=== PATIENT | male | born 1955 | race Caucasian/White ===

== ENCOUNTER 2020-01-17 08:24 | Inpatient (IN) | payer BC, SELFPAY ==
[2020-01-17] VITALS (7 sets, daily range): BP systolic 114–163; BP diastolic 68–93; PULSE 89–119; RESP 18–20; TEMP 36.4–36.7; O2SAT 98–100; BMI 33.9; BMI 33.8; BMI 33.7
--- NOTE | 2020-01-17 08:36 | ED.DCSUM_ITS ---
History of Present Illness Chief Complaint: ETOH Intox Informant: Patient Narrative: Patient presents requesting help with alcohol detox. He states he drinks about 3 tall boys a day and about a half of 1/5 of whiskey. His last drink was at 10 PM last evening. He states normally he would drink a shot with breakfast. He is feeling shaky. He has never been through detox or withdrawal previously. He states he has been drinking more heavily over the past 2 years. - Past Medical History (1) Hypertension Status: Chronic (2) High cholesterol Status: Chronic (3) GERD (gastroesophageal reflux disease) Status: Chronic Past Medical History - Allergies and Home Meds Allergies/Adverse Reactions: Allergies oxycodone HCl [From OxyContin] Allergy (Verified 01/17/20 08:25) Rash Primary Care Physician: Harinder Sanchez MD [NON-STAFF] - Prior records reviewed: Yes Lives: Spouse/ Significant Other Smoking Status: Current every day smoker Review of Systems General: Denies: Chills, Fever Eyes: Denies: Visual changes - bilaterally ENT: Denies: Bilateral ear pain Cardiovascular: Denies: Chest pain Respiratory: Denies: Dyspnea, Cough Gastrointestinal: Denies: Abdominal pain, Nausea, Vomiting, Diarrhea Musculoskeletal: Denies: Extremity Pain Skin: Denies: Rash Neurological: Denies: Headache Psych: Reports: Anxiety Hematologic: Denies: Easy bruising, Easy bleeding Allergy: Denies: Uticaria Physical Exam Vital Signs/Narrative: Vital Signs Temp Pulse Resp BP Pulse Ox 01/17/20 08:25 97.7 F L 119 H 20 H 163/82 H 100 Inital Vital Signs reviewed: Yes General: Well nourished, Well developed Head: Normocephalic ENT: Moist mucous membranes Neck: Supple Cardiovascular: Regular rate, Regular rhythm Respiratory: No distress, CTA bilaterally Abdomen: Soft, Nontender, Normal bowel sounds Extremities: - - Tremor noted to the hands bilaterally. Hands are mildly sweaty. Skin: Normal color Neurological: Alert, Oriented x3 Psychological: Normal affect Diagnostic/Tx/Re-eval - Medical Decision Making She was given 1 mg of IV Ativan to help with withdrawal symptoms. Blood work is reviewed. He does have evidence of acute kidney injury with previous creatinine being 0.79 on July 21 of this year. At that time he is ordered IV fluids. Patient is discussed with hospitalist to admit for detox and treatment of his acute kidney injury. ED Disposition - Plan for ED Patient: Disposition: Acute Care Hospital [facility] Diagnosis: Desire for detoxification, Acute kidney injury Referrals: Harinder Sanchez MD [NON-STAFF] -
[2020-01-17] MEDS: LORazepam 2 MG/ML Syringe 1 MG IV (08:59)
[2020-01-17 09:24] LABS: Absolute Lymphocyte Count 1.44 X10^3/uL (0.83-4.51); Absolute Neutrophil Count 7.3 X10^3/uL (2.0-7.7); Basophil# 0.06 X10^3/uL; Basophil% 0.6 % (0-1); Eosinophil# 0.15 X10^3/uL; Eosinophils% 1.5 % (0-5); Hematocrit 39.1 % (40-54); Hemoglobin 13.3 g/dL (13.0-16.5); Lymphocyte # 1.44 X10^3/ul (4.0); Mean Corpuscular Hgb 34.4 pg (27.0-32.0); Mean Platelet Vol. 11.1 fl (6.2-12.0); Monocyte% 10.7 % (0-10); NRBC Flagged by Analyzer 0 % (0-5); Neutrophil # 7.33 X10^3/uL (2.7-7.7); Neutrophil % 71.2 % (47-70); Platelet Count 289 K/mm3 (150-450); RBC Distribution Width CV 14.2 % (11.6-14.6); RBC Distribution Width SD 52.4 fl (35.1-43.9); Red Blood Count 3.87 M/mm3 (4.6-6.2); White Blood Count 10.3 K/mm3 (4.4-11.0)
[2020-01-17 09:32] LABS: International Normalized Ratio 0.9; Prothrombin Time (Protime)PT. 11.9 SECONDS (11.7-14.9)
[2020-01-17 09:38] LABS: ALB/GLOB Ratio 1.1 RATIO (0.9-2.4); AST(SGOT) 43 U/L (15-37); Alanine Aminotransfer ALT/SGPT 65 U/L (16-61); Alkaline Phosphatase 108 U/L (45-117); Anion Gap 11 (5-15); BUN 45 mg/dL (7-18); Calcium,Total 9.4 mg/dL (8.5-10.1); Chloride 98 mmol/L (98-107); Creatinine, Serum 2.25 mg/dL (0.70-1.30); EST Glomerular Filtration Rate 31 mL/min (>60); Est Glom Filt Rate - Afr Amer 38 mL/min (>60); Estimated Creatinine Clearance 36.88 ml/min; Globulin 3.8 g/dL (2.2-4.2); Glucose 101 mg/dL (74-106); Potassium 5.5 mmol/L (3.5-5.1); Protein, Total 7.8 g/dL (6.4-8.2); Sodium Level 132 mmol/L (136-145)
[2020-01-17 09:53] LABS: Amphetamine Urine VISTA NEGATIVE (<1000 ng/mL); Barbiturate Urine VISTA NEGATIVE (< 200 ng/mL); Benzodiazepine Urine VISTA NEGATIVE (< 200 ng/mL); Cocaine Urine VISTA NEGATIVE (< 300 ng/mL); Ecstacy Urine VISTA NEGATIVE (< 500 ng/mL); Methadone Urine VISTA NEGATIVE (< 300 ng/mL); PCP Urine VISTA NEGATIVE (< 25 ng/mL); THC Urine VISTA POSITIVE (< 50 ng/mL); Vista UDS pH Range 5
[2020-01-17] MEDS: 0.9% Normal Saline 1,000 ML 150 ML IV (10:24)
--- NOTE | 2020-01-17 11:07 | NURSING ---
DR MARTINEZ FOR DR HERNÁNDEZ
--- NOTE | 2020-01-17 11:13 | NURSING ---
MED SURG ETOH DETOX, LATRICIA MICHELLE
--- NOTE | 2020-01-17 11:25 | ED.RN ---
RAMP AGREEMENT EXPLAINED TO PT AND SIGNED BY PT.
--- NOTE | 2020-01-17 12:11 | HP.PCM_ITS ---
Problem List (1) EtOH dependence Status: Acute Qualifiers: Substance use status: in withdrawal Complication of substance-induced condition: uncomplicated Qualified Code(s): F10.230 - Alcohol dependence with withdrawal, uncomplicated (2) Hyperkalemia Status: Acute (3) Depression Status: Chronic Qualifiers: Depression Type: unspecified Qualified Code(s): F32.9 - Major depressive disorder, single episode, unspecified (4) Hyponatremia Status: Acute (5) Transaminitis Status: Acute History of Present Illness Date of Admission: 01/17/20 Chief Complaint: EtOH Detox Mr. Basurto is a 64 year old M with a PMH of HTN, HPL, GERD, LBP, depression and EtOH abuse who presented to the ED at [facility] on 01/17/2020 requesting Detox. He states that he tried to quit cold turkey a few days ago but felt really horrible after about 2 days and decided then that he needed help to detox. He states that he has always been a drinker and has tried AA in the past but the last 2 yrs he has drank a lot more 2/2 stressors at home and those stressors are now removed and his home situation is much better now. He states that he has a lot of support. His last drink was last pm at 10. He states that he drinks about 3 24 oz high EtOH beers/day and about 1/2 bottle of whiskey daily. He states that he used to be able to stop after a few drinks but now he is unable to stop. He is mildly tachycardic. Lab works shows a Na of 132, a K of 5.5 a BUN of 45, a sCr of 2.25, AST of 43 and an ALT of 65. His Blood EtOH level was 4 and his tox screen was + for opiates. He has a tremor and states that he feels jittery. He was given IVF at a rate of 150 cc/hr and Ativan in the ED. Past Medical History Past Medical History (Chronic Problems): Chronic Problems Hypertension (Chronic) High cholesterol (Chronic) GERD (gastroesophageal reflux disease) (Chronic) Depression (Chronic) Allergies oxycodone HCl [From OxyContin] Allergy (Verified 01/17/20 08:25) Rash Home Medications: Ambulatory Orders Medication Instructions Recorded Lisinopril [Zestril] 40 mg PO DAILY 04/30/13 Omeprazole [Prilosec] 20 mg PO DAILY 04/30/13 Simvastatin [Zocor] 20 mg PO QHS 04/30/13 Aspirin E.C. [Ecotrin] 325 mg PO BID #60 tablet 05/08/13 Amlodipine [Norvasc] 5 mg PO DAILY 01/17/20 Cyclobenzaprine HCl 10 mg PO TID 01/17/20 Sertraline HCl [Zoloft] 50 mg PO DAILY 01/17/20 Surgical History: total knee arthroplasty - B Psychiatric History: Depression Lives: Spouse/ Significant Other Smoking Status: Current every day smoker Tobacco Use: Cigarettes Alcohol: Heavy Drugs: - - THC Review of Systems Constitutional: Reports: Fatigue. Denies: Anorexia, Chills, Fever, Night Sweats, Malaise, Weakness, Weight Change Eyes: Denies: Blurred vision, Conjunctivae Inflammation, Double vision, Drainage, Eyelid Inflammation, Pain, Redness, Vision Change HEENT: Denies: Difficulty Hearing, Dysphasia, Ear Pain, Head Aches, Nasal bleeding, Nasal Congestion, Post Nasal Drip, Sinus Congestion, Sinus Drainage, Sore Throat, Visual Changes Cardiovascular: Denies: Chest Pain, Claudication, Chest Pressure, Chest Tightness, Edema, Heaviness, Light Headedness, Orthopnea, Palpitations, Paroxysmal Noc. Dyspnea, Syncope Respiratory: Denies: Cough, Hemoptysis, Pleuritic Pain, Shortness of Breath, Shortness of breath at rest, Shortness of breath upon exertion, Sputum production, Wheezing Gastrointestinal: Denies: Abdominal Pain, Constipation, Diarrhea, Dyspepsia, Hematemesis, Hematochezia, Nausea, Melena, Vomiting Genitourinary: Denies: Dysuria, Frequency, Hematuria, Hesitancy, Incontinence, Nocturia, Retention, Urgency Musculoskeletal: Reports: Back Pain, Joint Pain, Joint stiffness, Muscle pain, Neck Pain. Denies: Joint swelling, Joint Tenderness, Leg Pain, Shoulder Pain Skin: Denies: Dryness, Jaundice, Lesions, Pruritis, Rash, Skin Changes, Wounds Neurological: Reports: - - feels jittery. Denies: Balance problems, Change in Speech, Slurred speech, Confusion, Difficulty swallowing, Focal weakness, Headaches, Incoordination, Numbness, Tingling, Tremor, Seizures Psychiatric: Reports: Depression. Denies: Anxiety, Homicidal Ideations, Suicidal Ideations Endocrine: Denies: Change in Body Habitus, Heat/ Cold Intolerance, Polydipsia, Polyuria Hematologic/ Lymphatic: Denies: Adenopathy, Anemia, Easy Bruising, Easy Bleeding, Petechiae, Purpura, Hx of blood clot VTE Information - Inpt Only VTE Present on Admission: No VTE Pharm Prophylaxis ordered?: No Patient Problems: Active and Suspected Problems Desire for detoxification (Acute) Acute kidney injury (Acute) EtOH dependence (Acute) Hyperkalemia (Acute) Hyponatremia (Acute) Transaminitis (Acute) - Physical Exam Vitals/I&O's: Vital Signs Temp Pulse Resp BP Pulse Ox 97.8 F 95 18 131/75 H 99 01/17/20 11:13 01/17/20 11:13 01/17/20 11:13 01/17/20 11:13 01/17/20 11:13 Oxygen Delivery Method Room Air Weight: 113.5 kg Body Mass Index (BMI) 33.9 Intake and Output for Last 24 Hours 01/15/20 01/16/20 01/17/20 23:59 23:59 23:59 Intake Total 500 / 500 Balance 500 / 500 General: Alert, Oriented x3, Cooperative, No apparent distress, Well developed, Well nourished, - - obese upper middle aged male, sitting up in bed, tremulous HEENT: Atraumatic, PERRLA, EOMI, Normocephalic, TM's Clear Oral: Moist Mucosa, No Gingival or Mucosal Lesions/ Ulcerations, - - Mallampati 2, no thrush, fair dentiton Neck: Supple, No JVD, No Nodes, No Nuchal Rigidity, Trachea Midline, Thyroid Normal Size and Texture Lungs: Clear to auscultation, No rhonchi, No wheeze, No rales, Diminished - diffusely Cardiovascular: Regular rate, Regular Rhythm, Normal S1, Normal S2, No murmurs, No Ectopic Activity, No rub noted, No Gallop Abdomen: Bowel Sounds Present, Soft, Non Tender, Non-Distended, No Hepato- splenomegaly, Obese, No hernias noted Extremities: No clubbing, No cyanosis, No edema, Capillary Refill Less than 3 Seconds, Peripheral Pulses Normal Skin: No rashes, No breakdown Musculoskeletal: No Tenderness to Palpation of Joints or Extremities, No Muscle Wasting, Arthritic Changes Lymphatic: No Cervical, Supraclavicular, or Inguinal Adenopathy Neurological: Cranial nerves II-XII grossly intact, Deep Tendon Reflexes 2+/4 and Symmetrical, Neuro grossly intact, Motor Exam 5/5 strength throughout, Muscle tone normal, Sensory exam intact to light touch and pain, Coordination normal, - - tremulous Psych/Mental Status: Normal Affect, Appropriate, Alert and oriented to time, place, person, mood and affect Laboratory Results 01/17/20 08:55: WBC 10.3, RBC 3.87 L, Hgb 13.3, Hct 39.1 L, MCV 101.0 H, MCH 34.4 H, MCHC 34.0, RDW Std Deviation 52.4 H, RDW Coeff of Shireen 14.2, Plt Count 289, MPV 11.1, Immature Gran % (Auto) 2.000 H, Neut % (Auto) 71.2 H, Lymph % (Auto) 14.0 L, [place] % (Auto) 10.7 H, Eos % (Auto) 1.5, Baso % (Auto) 0.6, Absolute Neuts (auto) 7.3, Absolute Lymphs (auto) 1.44, Nucleated RBC % 0 01/17/20 08:55: PT 11.9, INR 0.9 01/17/20 08:55: Sodium 132 L, Potassium 5.5 H, Chloride 98, Carbon Dioxide 23.0, Anion Gap 11, BUN 45 H, Creatinine 2.25 H, Estim Creat Clear Calc 36.88, Est GFR (MDRD) Af Amer 38 L, Est GFR (MDRD) Non-Af 31 L, BUN/Creatinine Ratio 20.0, Glucose 101, Calcium 9.4, Total Bilirubin 0.50, AST 43 H, ALT 65 H, Alkaline Phosphatase 108, Total Protein 7.8, Albumin 4.0, Globulin 3.8, Albumin/Globulin Ratio 1.1 01/17/20 08:55: Ethyl Alcohol 4.0 01/17/20 08:55: Urine Opiates Screen NEGATIVE, Urine Methadone Screen NEGATIVE, Ur Barbiturates Screen NEGATIVE, Ur Phencyclidine Scrn NEGATIVE, Ur Amphetamines Screen NEGATIVE, U Methamphetamin-MDMA NEGATIVE, U Benzodiazepines Scrn NEGATIVE, Urine Cocaine Screen NEGATIVE, U Cannabinoids Screen POSITIVE H, Ur Drug Screen Comment Current Medications Sodium Chloride () 1,000 mls @ 150 mls/hr IV .[id number] [facility] Last Admin: 01/17/20 10:24 Dose: 150 mls/hr Documented by: Assessment/Plan All Active Problems Desire for detoxification (Acute) Acute kidney injury (Acute) EtOH dependence (Acute) Hyperkalemia (Acute) Hyponatremia (Acute) Transaminitis (Acute) Acute EtOH withdrawal -phenobarb taper -thiamine and folate -MVI -180 involvement -prn ativan LATRICIA -baseline sCr appears to be 0.7-0.8 -suspect dehydration -hold ASA and ACEI -LR at 150 cc/hr until am -repeat BMP at 1300 and in am -if doesn't improve will perform further w/u -avoid nephrotoxins Hyperkalemia -hold ACEI -IVF -repeat at 1300 -suspect related to LATRICIA and meds Mild EtOH Hepatitis -repeat in am Hypovolemic Hyponatremia -IVF and recheck -mild HTN/HPL -continue Amlodipine -hold ACEI for now -prn hydralizine for SBP > 160 -continue Statin Depression -continue Zoloft GERD -continue PPI Tobacco abuse -recommend cessation -start patch Chronic LBP -continue home flexeril DVT prophylaxis -low risk -early ambulation Code status -Full Inpatient E&M: 28418 Init Hosp L3
--- NOTE | 2020-01-17 12:11 | CM.ED ---
SOCIAL WORK Patient being admitted to [facility] for alcohol withdrawal management. Call to [facility] to update on admission, message left with Summer who will update intake. Matthew Wong, HEARING AID MECHANIC, AUTOMATIC BRINE MIXER OPERATOR
[2020-01-17] MEDS: cycloBENZAPRine HCl 10 MG Tablet PO ×2 (14:02→22:45)
[2020-01-17] MEDS: Phenobarbital 32.4 MG Tablet 64.8 MG PO ×3 (14:02→22:44)
[2020-01-17] MEDS: Lactated Ringers 1,000 ML 150 ML IV ×2 (14:02→20:50)
[2020-01-17 14:12] LABS: Anion Gap 7 (5-15); BUN 43 mg/dL (7-18); BUN/Creat Ratio 23.8 RATIO (10-20); Calcium,Total 8.9 mg/dL (8.5-10.1); Chloride 103 mmol/L (98-107); Creatinine, Serum 1.81 mg/dL (0.70-1.30); EST Glomerular Filtration Rate 40 mL/min (>60); Est Glom Filt Rate - Afr Amer 49 mL/min (>60); Estimated Creatinine Clearance 45.85 ml/min; Glucose 93 mg/dL (74-106); Potassium 5.2 mmol/L (3.5-5.1); Sodium Level 135 mmol/L (136-145)
[2020-01-17] MEDS: Thiamine Hydrochloride 100 MG Tablet PO (18:50)
[2020-01-17] MEDS: Atorvastatin Calcium 10 MG Tablet PO (22:46)
[2020-01-18] VITALS (7 sets, daily range): BP systolic 111–141; BP diastolic 67–102; PULSE 90–107; RESP 18–20; TEMP 36.4–36.6; O2SAT 95–100
[2020-01-18] MEDS: Phenobarbital 32.4 MG Tablet 64.8 MG PO ×6 (02:21→22:19)
[2020-01-18] MEDS: Lactated Ringers 1,000 ML 150 ML IV (02:21)
[2020-01-18] MEDS: cycloBENZAPRine HCl 10 MG Tablet PO ×3 (06:22→22:18)
[2020-01-18 07:45] LABS: Absolute Lymphocyte Count 1.76 X10^3/uL (0.83-4.51); Absolute Neutrophil Count 4.3 X10^3/uL (2.0-7.7); Basophil# 0.06 X10^3/uL; Basophil% 0.9 % (0-1); Eosinophil# 0.24 X10^3/uL; Eosinophils% 3.4 % (0-5); Hematocrit 39.4 % (40-54); Hemoglobin 12.8 g/dL (13.0-16.5); Lymphocyte # 1.76 X10^3/ul (4.0); Mean Corp Hgb Conc 32.5 g/dL (32-36); Mean Corpuscular Hgb 33.6 pg (27.0-32.0); Mean Corpuscular Volume 103.4 fL (80-94); Mean Platelet Vol. 11.2 fl (6.2-12.0); Monocyte# 0.56 X10^3/uL; Monocyte% 7.9 % (0-10); NRBC Flagged by Analyzer 0 % (0-5); Neutrophil # 4.31 X10^3/uL (2.7-7.7); Neutrophil % 61.1 % (47-70); Platelet Count 238 K/mm3 (150-450); RBC Distribution Width CV 14.1 % (11.6-14.6); RBC Distribution Width SD 54.2 fl (35.1-43.9); Red Blood Count 3.81 M/mm3 (4.6-6.2); White Blood Count 7.1 K/mm3 (4.4-11.0)
--- NOTE | 2020-01-18 07:54 | PCM.PN.HOSP ---
Patient Problems: Active and Suspected Problems Desire for detoxification (Acute) Acute kidney injury (Acute) EtOH dependence (Acute) Hyperkalemia (Acute) Hyponatremia (Acute) Transaminitis (Acute) Subjective: Pt states that he is much less tremulous with the medication. Feeling ok this am. Is very complimentary about his care. Vitals/I&O's: Vital Signs Temp Pulse Resp BP Pulse Ox 97.5 F L 98 18 127/78 H 96 01/18/20 06:19 01/18/20 06:19 01/18/20 06:19 01/18/20 06:19 01/18/20 07:03 Oxygen Delivery Method Room Air Weight: 113.1 kg Body Mass Index (BMI) 33.7 Intake and Output for Last 24 Hours 01/16/20 01/17/20 01/18/20 23:59 23:59 23:59 Intake Total 2315 / 2315 1027.5 / 1027.5 Output Total 2049 / 2049 1000 / 1000 Balance 265 / 265 27.5 / 27.5 General: Alert, Oriented x3, Cooperative, No apparent distress, Well developed, Well nourished, - - obese WM lying in bed sleeping but awakens easily HEENT: Atraumatic, PERRLA, EOMI, Normocephalic, EAC Clear Oral: Moist Mucosa, No Gingival or Mucosal Lesions/ Ulcerations Neck: Supple, No JVD, No Nodes, Trachea Midline, Thyroid Normal Size and Texture Lungs: Clear to auscultation, No rhonchi, No wheeze, No rales, Diminished - diffusely Cardiovascular: Regular rate, Regular Rhythm, Normal S1, Normal S2, No murmurs, No Ectopic Activity, No rub noted, No Gallop Abdomen: Bowel Sounds Present, Soft, Non Tender, Non-Distended, No Hepato-splenomegaly, Obese Extremities: No clubbing, No cyanosis, No edema, Capillary Refill Less than 3 Seconds, Peripheral Pulses Normal Skin: No rashes, No breakdown Musculoskeletal: No Tenderness to Palpation of Joints or Extremities, No Muscle Wasting, Arthritic Changes Lymphatic: No Cervical, Supraclavicular, or Inguinal Adenopathy Neurological: Cranial nerves II-XII grossly intact, Neuro grossly intact, Muscle tone normal, Coordination normal, - - no sig tremor Psych/Mental Status: Normal Affect, Appropriate, - - very pleasant, Alert and oriented to time, place, person, mood and affect Laboratory Results 01/17/20 08:55: WBC 10.3, RBC 3.87 L, Hgb 13.3, Hct 39.1 L, MCV 101.0 H, MCH 34.4 H, MCHC 34.0, RDW Std Deviation 52.4 H, RDW Coeff of Shireen 14.2, Plt Count 289, MPV 11.1, Immature Gran % (Auto) 2.000 H, Neut % (Auto) 71.2 H, Lymph % (Auto) 14.0 L, [place] % (Auto) 10.7 H, Eos % (Auto) 1.5, Baso % (Auto) 0.6, Absolute Neuts (auto) 7.3, Absolute Lymphs (auto) 1.44, Nucleated RBC % 0 01/17/20 08:55: PT 11.9, INR 0.9 01/17/20 08:55: Sodium 132 L, Potassium 5.5 H, Chloride 98, Carbon Dioxide 23.0, Anion Gap 11, BUN 45 H, Creatinine 2.25 H, Estim Creat Clear Calc 36.88, Est GFR (MDRD) Af Amer 38 L, Est GFR (MDRD) Non-Af 31 L, BUN/Creatinine Ratio 20.0, Glucose 101, Calcium 9.4, Total Bilirubin 0.50, AST 43 H, ALT 65 H, Alkaline Phosphatase 108, Total Protein 7.8, Albumin 4.0, Globulin 3.8, Albumin/Globulin Ratio 1.1 01/17/20 08:55: Ethyl Alcohol 4.0 01/17/20 08:55: Urine Opiates Screen NEGATIVE, Urine Methadone Screen NEGATIVE, Ur Barbiturates Screen NEGATIVE, Ur Phencyclidine Scrn NEGATIVE, Ur Amphetamines Screen NEGATIVE, U Methamphetamin-MDMA NEGATIVE, U Benzodiazepines Scrn NEGATIVE, Urine Cocaine Screen NEGATIVE, U Cannabinoids Screen POSITIVE H, Ur Drug Screen Comment 01/17/20 13:14: Sodium 135 L, Potassium 5.2 H, Chloride 103, Carbon Dioxide 25.0, Anion Gap 7, BUN 43 H, Creatinine 1.81 H, Estim Creat Clear Calc 45.85, Est GFR (MDRD) Af Amer 49 L, Est GFR (MDRD) Non-Af 40 L, BUN/Creatinine Ratio 23.8 H, Glucose 93, Calcium 8.9 01/18/20 06:40: WBC 7.1, RBC 3.81 L, Hgb 12.8 L, Hct 39.4 L, MCV 103.4 H, MCH 33.6 H, MCHC 32.5, RDW Std Deviation 54.2 H, RDW Coeff of Shireen 14.1, Plt Count 238, MPV 11.2, Immature Gran % (Auto) 1.700 H, Neut % (Auto) 61.1, Lymph % (Auto) 25.0, [place] % (Auto) 7.9, Eos % (Auto) 3.4, Baso % (Auto) 0.9, Absolute Neuts (auto) 4.3, Absolute Lymphs (auto) 1.76, Nucleated RBC % 0 01/18/20 06:40: Sodium Pending, Potassium Pending, Chloride Pending, Carbon Dioxide Pending, Anion Gap Pending, BUN Pending, Creatinine Pending, Est GFR (MDRD) Af Amer Pending, Est GFR (MDRD) Non-Af Pending, BUN/Creatinine Ratio Pending, Glucose Pending, Calcium Pending, Phosphorus Pending, Magnesium Pending, Total Bilirubin Pending, AST Pending, ALT Pending, Alkaline Phosphatase Pending, Total Protein Pending, Albumin Pending Current Medications Acetaminophen (Tylenol) 650 mg PO Q6H PRN PRN PRN Reason: Pain Score 1-10/Temp > 100.7 F Al Hydroxide/Mg Hydroxide (Mylanta Ii) 30 ml PO Q6H PRN PRN PRN Reason: Gastric Burning Amlodipine Besylate (Norvasc) 5 mg PO DAILY [facility] Atorvastatin Calcium (Lipitor) 10 mg PO QHS [facility] Last Admin: 01/17/20 22:46 Dose: 10 mg Documented by: Cyclobenzaprine HCl (Flexeril) 10 mg PO TID [facility] Last Admin: 01/18/20 06:22 Dose: 10 mg Documented by: Dicyclomine HCl (Bentyl) 20 mg PO Q6H PRN PRN PRN Reason: abdominal discomfort Folic Acid (Folic Acid) 1 mg PO DAILY@0800 [facility] Stop: 01/20/20 08:01 Gabapentin (Neurontin) 300 mg PO Q8H PRN PRN PRN Reason: moderate to severe anxiety Hydroxyzine Pamoate (Vistaril Pamoate Capsule) 50 mg PO Q4H PRN PRN PRN Reason: mild anxiety Labetalol HCl (Trandate) 20 mg IV Q4H PRN PRN PRN Reason: sbp > 160 Loperamide HCl (Imodium) 2 mg PO Q4H PRN PRN PRN Reason: LOOSE STOOLS Lorazepam (Ativan) 2 mg PO Q2H PRN PRN; Protocol PRN Reason: CIWA score > 8 but <15 Lorazepam (Ativan) 2 mg PO UD PRN; Protocol PRN Reason: CIWA score >/=15. Lorazepam (Ativan) 2 mg IV Q2H PRN PRN; Protocol PRN Reason: CIWA score > 8 but <15 Lorazepam (Ativan) 2 mg IV UD PRN; Protocol PRN Reason: CIWA score >/=15. Lorazepam (Ativan) 1 mg PO Q2H PRN PRN PRN Reason: etoh withdrawal/agitation Melatonin (Melatonin) 3 mg PO QHS PRN PRN PRN Reason: INSOMNIA Multivitamins/Minerals (Multivitamin With Minerals (Bkc)) 1 tablet PO DAILYCM [facility] Ondansetron HCl (Zofran) 8 mg PO Q8H PRN PRN PRN Reason: NAUSEA Ondansetron HCl (Zofran) 4 mg IV Q8H PRN PRN PRN Reason: NAUSEA/VOMITING Pantoprazole Sodium (Protonix) 20 mg PO DAILY [facility] Phenobarbital (Phenobarbital) 97.2 mg PO Q4H PAULETT[facility]; Taper Stop: 01/21/20 21:59 Last Admin: 01/18/20 06:22 Dose: 97.2 mg Documented by: Sertraline HCl (Zoloft) 50 mg PO DAILY [facility] Sodium Chloride () 10 - 40 ml IV UD PRN PRN Reason: SALINE FLUSH Thiamine HCl (Vitamin B1) 100 mg PO BIDCM [place] Stop: 01/20/20 08:01 Last Admin: 01/17/20 18:50 Dose: 100 mg Documented by: Trazodone HCl (Desyrel) 100 mg PO QHS PRN PRN PRN Reason: INSOMNIA STROKE Vital Signs/Narrative: Vital Signs Temp Pulse Resp BP Pulse Ox 01/18/20 07:03 96 01/18/20 06:19 97.5 F L 98 18 127/78 H 96 Medical Necessity - Tobacco Use Smoking Status: Current every day smoker Tobacco Use: Cigarettes Assessment/Plan All Active Problems Desire for detoxification (Acute) Acute kidney injury (Acute) EtOH dependence (Acute) Hyperkalemia (Acute) Hyponatremia (Acute) Transaminitis (Acute) Acute EtOH withdrawal -phenobarb taper with end dated of 01/20 in the evening -thiamine and folate -MVI -180 involvement -prn ativan LATRICIA -baseline sCr appears to be 0.7-0.8 -resolving-->sCr is down to 1.04 today -will reduce IVF to NS at 50 cc/hr x 1 bag and then d/c Hyperkalemia -resolved -will still hold ACEI today Mild EtOH Hepatitis -resolved Hypovolemic Hyponatremia -resolved Mild Macrocytic Anemia -hgb 12.8 from 3.3 on admission -will monitor HTN/HPL -continue Amlodipine -continue to hold ACEI for now -BP is not elevated -will restart (40 mg is home dose) if BP is consistently elevated -prn hydralizine for SBP > 160 -continue Statin Depression -continue Zoloft GERD -continue PPI Tobacco abuse -recommend cessation -patch if needed Chronic LBP -continue home Flexeril DVT prophylaxis -low risk -early ambulation Code status -Full Inpatient E&M: 44023 Subs Hosp L3
[2020-01-18 07:58] LABS: AST(SGOT) 37 U/L (15-37); Alanine Aminotransfer ALT/SGPT 53 U/L (16-61); Albumin, Serum 3.4 g/dL (3.2-5.0); Alkaline Phosphatase 91 U/L (45-117); Anion Gap 4 (5-15); BUN 33 mg/dL (7-18); BUN/Creat Ratio 31.7 RATIO (10-20); Calcium,Total 9.3 mg/dL (8.5-10.1); Chloride 106 mmol/L (98-107); Creatinine, Serum 1.04 mg/dL (0.70-1.30); EST Glomerular Filtration Rate 77 mL/min (>60); Est Glom Filt Rate - Afr Amer 93 mL/min (>60); Globulin 3.4 g/dL (2.2-4.2); Glucose 90 mg/dL (74-106); Protein, Total 6.8 g/dL (6.4-8.2); Sodium Level 137 mmol/L (136-145)
[2020-01-18] MEDS: 0.9% Normal Saline 1,000 ML 50 ML IV (09:07)
[2020-01-18] MEDS: Pantoprazole Sodium 20 MG Tablet PO (09:37)
[2020-01-18] MEDS: Aspirin 81 MG TAB.CHEW PO (09:37)
[2020-01-18] MEDS: Thiamine Hydrochloride 100 MG Tablet PO ×2 (09:37→17:24)
[2020-01-18] MEDS: Sertraline 50 MG Tablet PO (09:37)
[2020-01-18] MEDS: Multivitamins,Ther W-Minerals Tablet 1 TABLET PO (09:37)
[2020-01-18] MEDS: amLODIPine 5 MG Tablet PO (09:37)
[2020-01-18] MEDS: Folic Acid 1 MG Tablet PO (09:38)
[2020-01-18] MEDS: Acetaminophen 325 MG Tablet 650 MG PO (09:38)
[2020-01-18] MEDS: hydrOXYzine PAM 25 MG Capsule 50 MG PO (12:58)
[2020-01-18] MEDS: Gabapentin 300 MG Capsule PO (14:01)
[2020-01-18] MEDS: Atorvastatin Calcium 10 MG Tablet PO (22:19)
[2020-01-18] MEDS: MELATONIN 3 MG TABLET PO (22:25)
[2020-01-19] MEDS: Phenobarbital 32.4 MG Tablet 64.8 MG PO ×6 (02:41→20:56)
[2020-01-19 02:45] VITALS: BP 123/83; PULSE 89; RESP 18; TEMP 36.4; O2SAT 100
[2020-01-19] MEDS: cycloBENZAPRine HCl 10 MG Tablet PO ×3 (05:23→20:56)
[2020-01-19] MEDS: 0.9% Saline Lock 10 ML Syringe IV (05:23)
[2020-01-19 07:26] VITALS: O2SAT 95
--- NOTE | 2020-01-19 08:32 | PN_ITS ---
Patient Problems: Active and Suspected Problems Desire for detoxification (Acute) Acute kidney injury (Acute) EtOH dependence (Acute) Hyperkalemia (Acute) Hyponatremia (Acute) Transaminitis (Acute) Subjective: Pt states that he is feeling well and this is the best he has felt in the morning in a long time. His only complaint is that he has not had a BM and that is atypical for him. Would like to go home tomorrow if possible. Vitals/I&O's: Vital Signs Temp Pulse Resp BP Pulse Ox 97.5 F L 89 18 123/83 H 95 01/19/20 02:45 01/19/20 02:45 01/19/20 02:45 01/19/20 02:45 01/19/20 07:26 Oxygen Delivery Method Room Air Weight: 113.1 kg Body Mass Index (BMI) 33.7 Intake and Output for Last 24 Hours 01/17/20 01/18/20 01/19/20 23:59 23:59 23:59 Intake Total 2315 / 2315 4027.5 / 4627.5 1900 / 1900 Output Total 2049 / 2049 2850 / 3200 1150 / 1150 Balance 265 / 265 1177.5 / 1427.5 750 / 750 General: Alert, Oriented x3, Cooperative, No apparent distress, Well developed, Well nourished, - - Obese WM sitting up in a chair watching TV Lungs: No rhonchi, No wheeze, No rales, Diminished - diffusely Cardiovascular: Regular rate, Regular Rhythm, Normal S1, Normal S2, No murmurs, No Ectopic Activity, No rub noted, No Gallop Abdomen: Bowel Sounds Present, Soft, Non Tender, Non-Distended, Obese Extremities: No clubbing, No cyanosis, No edema, Capillary Refill Less than 3 Seconds, Peripheral Pulses Normal Neurological: Cranial nerves II-XII grossly intact, Neuro grossly intact, - - no tremor Psych/Mental Status: Normal Affect, Appropriate, Alert and oriented to time, place, person, mood and affect Current Medications Acetaminophen (Tylenol) 650 mg PO Q6H PRN PRN PRN Reason: Pain Score 1-10/Temp > 100.7 F Last Admin: 01/18/20 09:38 Dose: 650 mg Documented by: Al Hydroxide/Mg Hydroxide (Mylanta Ii) 30 ml PO Q6H PRN PRN PRN Reason: Gastric Burning Amlodipine Besylate (Norvasc) 5 mg PO DAILY [facility] Last Admin: 01/18/20 09:37 Dose: 5 mg Documented by: Aspirin (Aspirin, Baby) 81 mg PO DAILY@0800 [facility] Atorvastatin Calcium (Lipitor) 10 mg PO QHS [facility] Last Admin: 01/18/20 22:19 Dose: 10 mg Documented by: Cyclobenzaprine HCl (Flexeril) 10 mg PO TID [facility] Last Admin: 01/19/20 05:23 Dose: 10 mg Documented by: Dicyclomine HCl (Bentyl) 20 mg PO Q6H PRN PRN PRN Reason: abdominal discomfort Folic Acid (Folic Acid) 1 mg PO DAILY@0800 [facility] Stop: 01/20/20 08:01 Last Admin: 01/18/20 09:38 Dose: 1 mg Documented by: Gabapentin (Neurontin) 300 mg PO Q8H PRN PRN PRN Reason: moderate to severe anxiety Last Admin: 01/18/20 14:01 Dose: 300 mg Documented by: Hydroxyzine Pamoate (Vistaril Pamoate Capsule) 50 mg PO Q4H PRN PRN PRN Reason: mild anxiety Last Admin: 01/18/20 12:58 Dose: 50 mg Documented by: Labetalol HCl (Trandate) 20 mg IV Q4H PRN PRN PRN Reason: sbp > 160 Loperamide HCl (Imodium) 2 mg PO Q4H PRN PRN PRN Reason: LOOSE STOOLS Lorazepam (Ativan) 2 mg PO Q2H PRN PRN; Protocol PRN Reason: CIWA score > 8 but <15 Lorazepam (Ativan) 2 mg PO UD PRN; Protocol PRN Reason: CIWA score >/=15. Lorazepam (Ativan) 2 mg IV Q2H PRN PRN; Protocol PRN Reason: CIWA score > 8 but <15 Lorazepam (Ativan) 2 mg IV UD PRN; Protocol PRN Reason: CIWA score >/=15. Lorazepam (Ativan) 1 mg PO Q2H PRN PRN PRN Reason: etoh withdrawal/agitation Melatonin (Melatonin) 3 mg PO QHS PRN PRN PRN Reason: INSOMNIA Last Admin: 01/18/20 22:25 Dose: 3 mg Documented by: Multivitamins/Minerals ([facility]ivit[facility] With Minerals ([facility])) [facility] Last Admin: 01/18/20 09:37 Dose: 1 tablet Documented by: Nicotine (Nicoderm Cq (Pbkc)) 21 mg TRANSDERM. DAILY [facility] Last Admin: 01/18/20 13:05 Dose: 21 mg Documented by: Ondansetron HCl (Zofran) 8 mg PO Q8H PRN PRN PRN Reason: NAUSEA Ondansetron HCl (Zofran) 4 mg IV Q8H PRN PRN PRN Reason: NAUSEA/VOMITING Pantoprazole Sodium (Protonix) 20 mg PO DAILY [facility] Last Admin: 01/18/20 09:37 Dose: 20 mg Documented by: Phenobarbital (Phenobarbital) 64.8 mg PO Q4H [facility]; Taper Stop: 01/21/20 21:59 Last Admin: 01/19/20 05:26 Dose: 64.8 mg Documented by: Sertraline HCl (Zoloft) 50 mg PO DAILY [facility] Last Admin: 01/18/20 09:37 Dose: 50 mg Documented by: Sodium Chloride () 10 - 40 ml IV UD PRN PRN Reason: SALINE FLUSH Last Admin: 01/19/20 05:23 Dose: 10 ml Documented by: Thiamine [facility]itamin B1) [facility] Stop: 01/20/20 08:01 Last Admin: 01/18/20 17:24 Dose: 100 mg Documented by: Trazodone HCl (Desyrel) 100 mg PO QHS PRN PRN PRN Reason: INSOMNIA STROKE Vital Signs/Narrative: Vital Signs Pulse Ox 01/19/20 07:26 95 Medical Necessity - Tobacco Use Smoking Status: Current every day smoker Tobacco Use: Cigarettes Assessment/Plan All Active Problems Desire for detoxification (Acute) Acute kidney injury (Acute) EtOH dependence (Acute) Hyperkalemia (Acute) Hyponatremia (Acute) Transaminitis (Acute) Acute EtOH withdrawal -phenobarb taper with end dated of 01/20 in the evening -thiamine and folate -MVI -180 involvement--> will see tomorrow -prn ativan LATRICIA -baseline sCr appears to be 0.7-0.8 -was 05/25 yesterday and am lab is pending for today Constipation -Miralax PRN ordered and 1 dose of miralax for today Mild Macrocytic Anemia -hgb 12.8 from 3.3 on admission -will monitor HTN/HPL -continue Amlodipine -continue to hold ACEI for now -BP remains in normal range without ACEI--> will continue to hold for now -will restart (40 mg is home dose) if BP is consistently elevated -prn hydralazine for SBP > 160 -continue Statin Depression -continue Zoloft GERD -continue PPI Tobacco abuse -recommend cessation -patch if needed Chronic LBP -continue home Flexeril DVT prophylaxis -low risk -early ambulation Code status -Full Inpatient E&M: 45702 Subs Hosp L2
[2020-01-19 09:30] VITALS: BP 143/73; PULSE 94; RESP 18; TEMP 36.3; O2SAT 99
[2020-01-19] MEDS: Multivitamins,Ther W-Minerals Tablet 1 TABLET PO (09:36)
[2020-01-19] MEDS: Sertraline 50 MG Tablet PO (09:36)
[2020-01-19] MEDS: Pantoprazole Sodium 20 MG Tablet PO (09:36)
[2020-01-19] MEDS: Folic Acid 1 MG Tablet PO (09:37)
[2020-01-19 09:38] LABS: Anion Gap 5 (5-15); BUN 21 mg/dL (7-18); BUN/Creat Ratio 19.8 RATIO (10-20); Chloride 103 mmol/L (98-107); Creatinine, Serum 1.06 mg/dL (0.70-1.30); EST Glomerular Filtration Rate 75 mL/min (>60); Est Glom Filt Rate - Afr Amer 91 mL/min (>60); Estimated Creatinine Clearance 78.29 ml/min; Glucose 114 mg/dL (74-106); Potassium 5.1 mmol/L (3.5-5.1); Sodium Level 135 mmol/L (136-145)
[2020-01-19] MEDS: Thiamine Hydrochloride 100 MG Tablet PO ×2 (10:00→15:33)
[2020-01-19] MEDS: Aspirin 81 MG TAB.CHEW PO (10:00)
[2020-01-19] MEDS: amLODIPine 5 MG Tablet PO (10:01)
[2020-01-19 15:28] VITALS: BP 147/89; PULSE 98; RESP 20; TEMP 36.6; O2SAT 98
[2020-01-19] MEDS: Polyethylene Glycol 3350 17 GM PACKET PO (15:33)
[2020-01-19] MEDS: LORazepam 1 MG Tablet PO (18:44)
--- NOTE | 2020-01-19 18:44 | NURSING ---
Pt states he is getting a little antsy. Thinks he needs a different Nicotine patch. Informed nurse that I think they gave me a different dose of nicotine last time. Explained to pt after looking at emar that nicotine always been the 21mcg. This nurse offered getting an order for nicotine gum and pt was agreeable. Dr. Salazar texted, and no order for nicotine gum but wants nurse to give po ativan. Pt is agreeable to this.
[2020-01-19] MEDS: Atorvastatin Calcium 10 MG Tablet PO (20:56)
[2020-01-19 21:01] VITALS: BP 116/84; PULSE 110; RESP 18; TEMP 36.5; O2SAT 100
[2020-01-20] MEDS: Phenobarbital 32.4 MG Tablet 64.8 MG PO ×2 (04:59→10:33)
[2020-01-20] MEDS: cycloBENZAPRine HCl 10 MG Tablet PO (04:59)
[2020-01-20 06:00] VITALS: BP 151/95; PULSE 97; RESP 18; TEMP 36.6; O2SAT 96
[2020-01-20 06:29] LABS: Absolute Lymphocyte Count 1.81 X10^3/uL (0.83-4.51); Basophil# 0.05 X10^3/uL; Basophil% 0.7 % (0-1); Eosinophil# 0.29 X10^3/uL; Eosinophils% 4.2 % (0-5); Hematocrit 37.6 % (40-54); Hemoglobin 12.1 g/dL (13.0-16.5); Lymphocyte # 1.81 X10^3/ul (4.0); Lymphocyte % 26.3 % (19-41); Mean Corp Hgb Conc 32.2 g/dL (32-36); Mean Corpuscular Hgb 33.3 pg (27.0-32.0); Mean Corpuscular Volume 103.6 fL (80-94); Mean Platelet Vol. 10.4 fl (6.2-12.0); Monocyte# 0.63 X10^3/uL; Monocyte% 9.2 % (0-10); NRBC Flagged by Analyzer 0 % (0-5); Neutrophil # 3.95 X10^3/uL (2.7-7.7); Neutrophil % 57.4 % (47-70); Platelet Count 220 K/mm3 (150-450); RBC Distribution Width SD 53.4 fl (35.1-43.9); Red Blood Count 3.63 M/mm3 (4.6-6.2); White Blood Count 6.9 K/mm3 (4.4-11.0)
[2020-01-20 06:57] LABS: Anion Gap 2 (5-15); BUN 21 mg/dL (7-18); BUN/Creat Ratio 22.7 RATIO (10-20); Calcium,Total 8.9 mg/dL (8.5-10.1); Chloride 101 mmol/L (98-107); Creatinine, Serum 0.92 mg/dL (0.70-1.30); EST Glomerular Filtration Rate 88 mL/min (>60); Est Glom Filt Rate - Afr Amer 106 mL/min (>60); Estimated Creatinine Clearance 90.21 ml/min; Glucose 96 mg/dL (74-106); Potassium 4.6 mmol/L (3.5-5.1); Sodium Level 133 mmol/L (136-145)
[2020-01-20] MEDS: Multivitamins,Ther W-Minerals Tablet 1 TABLET PO (07:43)
[2020-01-20] MEDS: Sertraline 50 MG Tablet PO (07:43)
[2020-01-20] MEDS: Folic Acid 1 MG Tablet PO (07:43)
[2020-01-20] MEDS: Aspirin 81 MG TAB.CHEW PO (07:43)
[2020-01-20] MEDS: Pantoprazole Sodium 20 MG Tablet PO (07:44)
[2020-01-20 08:16] VITALS: O2SAT 99
[2020-01-20 10:31] VITALS: BP 122/66; PULSE 97; RESP 18; TEMP 36.6; O2SAT 98
[2020-01-20] MEDS: amLODIPine 5 MG Tablet PO (10:33)
[2020-01-20] MEDS: Thiamine Hydrochloride 100 MG Tablet PO (10:33)
--- NOTE | 2020-01-20 11:05 | ADDICTION ---
This fiction writer met with patient in his room to verify discharge plan. Patient plans to engage with Danelle and is scheduled to meet with Chantal on 01/29/2020 at 12pm. He plans to d/c today
--- NOTE | 2020-01-20 11:07 | DCINST_ITS ---
- Discharge Diagnoses Current Active Problems: Current Active and Chronic Problems Desire for detoxification (Acute) Acute kidney injury (Acute) EtOH dependence (Acute) Hyperkalemia (Acute) Depression (Chronic) Hyponatremia (Acute) Transaminitis (Acute) You will use the following diet at home:: Calorie/Carbohydrate Controlled (specify 1200, 1400, etc), Cardiac Your food should be the consistency of: Regular Your liquids should be the consistency of: Regular/Thin Discharge Activity: Return to Normal Activity Call your doctor if you observe: Fever of 101 or Higher, Shortness of breath, Dizziness, Fainting spells, Swelling in the ankles, Chest pain, Increased palpitations (irregular heartbeat) Additional Instructions: BMP by your PCP in a week to monitor renal function Allergies/Adverse Reactions: Allergies oxycodone HCl [From OxyContin] Allergy (Verified 01/17/20 08:25) Rash Medications to take at Discharge Lisinopril [Zestril] 40 mg PO DAILY 04/30/13 Omeprazole [Prilosec] 20 mg PO DAILY 04/30/13 Simvastatin [Zocor] 20 mg PO QHS 04/30/13 Aspirin E.C. [Ecotrin] 325 mg PO BID #60 tablet 05/08/13 Amlodipine [Norvasc] 5 mg PO DAILY 01/17/20 Cyclobenzaprine HCl 10 mg PO TID 01/17/20 Sertraline HCl [Zoloft] 50 mg PO DAILY 01/17/20 Primary Care Physician: Harinder Sanchez MD [NON-STAFF] - Please follow up with your Primary Care Physician in: 3-5 days Test Results: Test results from this visit will be discussed in further detail at your follow- up appointment, if applicable. Please Follow Up With: 180 When: 01/29/2020
--- NOTE | 2020-01-20 15:03 | DS.PCM_ITS ---
Discharge Date and Diagnosis Date of Admission: 01/17/20 Date of Discharge: 01/20/20 - Secondary Discharge Diagnosis Chronic Problems: Chronic Problems Hypertension (Chronic) High cholesterol (Chronic) GERD (gastroesophageal reflux disease) (Chronic) Depression (Chronic) Hospital Course and Treatment Imaging Results: None Consults: None Operations: None Procedures: None Summary of Care Provided: Per HPI: Mr. Basurto is a 64 year old M with a PMH of HTN, HPL, GERD, LBP, depression and EtOH abuse who presented to the ED at [facility] on 01/17/2020 requesting Detox. He states that he tried to quit cold turkey a few days ago but felt really horrible after about 2 days and decided then that he needed help to det ox. He states that he has always been a drinker and has tried AA in the past but the last 2 yrs he has drank a lot more 2/2 stressors at home and those stressors are now removed and his home situation is much better now. He states that he has a lot of support. His last drink was last pm at 10. He states that he drinks about 3 24 oz high EtOH beers/day and about 1/2 bottle of whiskey daily. He stat es that he used to be able to stop after a few drinks but now he is unable to stop. He is mildly tachycardic. Lab works shows a Na of 132, a K of 5.5 a BUN of 45, a sCr of 2.25, AST of 43 and an ALT of 65. His Blood EtOH level was 4 and his tox screen was + for opiates. He has a tremor and states that he feels jittery. He was given IVF at a rate of 150 cc/hr and Ativan in the ED. Hospital Course: 1. Acute alcohol withdrawal/LATRICIA/microcytic anemia likely secondary to poor nutrition from [id number] male who has recently been drinking more because his daughter and his grandson moved in with him along with his former son-in-law who we dissected along with. He states that he is okay now since his daughter is and he was able to kick a son-in-law out of the house. He did complete the alcohol withdrawal taper and has been set up with 180 on January 29, 2020. On presentation his kidney function was 1.8, consistent with an LATRICIA likely due to dehydration. With some hydration his creatinine improved to the day of discharge at 0.92. I discussed the plan of discharge today and he expressed understanding of the risks and benefits of going home and would like to go home today. 2. Hypertension, hyperlipidemia, depression, GERD, tobacco abuse, chronic low back pain, all chronic conditions which complicate his care. His home medications were continued where appropriate - Physical Exam Vitals/I&O's: Vital Signs Temp Pulse Resp BP Pulse Ox 97.8 F 97 18 122/66 H 98 01/20/20 10:31 01/20/20 10:31 01/20/20 10:31 01/20/20 10:31 01/20/20 10:31 Oxygen Delivery Method Room Air Weight: 249 lb 5.485 oz Body Mass Index (BMI) 33.7 Intake and Output for Last 24 Hours 01/18/20 01/19/20 01/20/20 23:59 23:59 23:59 Intake Total 4027.5 / 4627.5 2500 / 2500 Output Total 2850 / 3200 1150 / 1150 Balance 1177.5 / 1427.5 1350 / 1350 General: Alert, Oriented x3, Cooperative, No apparent distress HEENT: Atraumatic, PERRLA, EOMI, Normocephalic Oral: Moist Mucosa Neck: Supple, No JVD Lungs: Clear to auscultation, Normal air movement, No rhonchi, No wheeze, No rales Cardiovascular: Regular rate, Regular Rhythm, Normal S1, Normal S2, No murmurs Abdomen: Soft, Non Tender, Non-Distended, No Hepato-splenomegaly Extremities: No edema, Capillary Refill Less than 3 Seconds Skin: No rashes, No breakdown Neurological: Neuro grossly intact, Sensory exam intact to light touch and pain Psych/Mental Status: Normal Affect, Appropriate Laboratory Results 01/20/20 06:05: WBC 6.9, RBC 3.63 L, Hgb 12.1 L, Hct 37.6 L, MCV 103.6 H, MCH 33.3 H, MCHC 32.2, RDW Std Deviation 53.4 H, RDW Coeff of Shireen 14.0, Plt Count 220, MPV 10.4, Immature Gran % (Auto) 2.200 H, Neut % (Auto) 57.4, Lymph % (Auto) 26.3, Mcduffie % (Auto) 9.2, Eos % (Auto) 4.2, Baso % (Auto) 0.7, Absolute Neuts (auto) 4.0, Absolute Lymphs (auto) 1.81, Nucleated RBC % 0 01/20/20 06:05: Sodium 133 L, Potassium 4.6, Chloride 101, Carbon Dioxide 30.0, Anion Gap 2 L, BUN 21 H, Creatinine 0.92, Estim Creat Clear Calc 90.21, Est GFR (MDRD) Af Amer 106, Est GFR (MDRD) Non-Af 88, BUN/Creatinine Ratio 22.7 H, Glucose 96, Calcium 8.9 Discharge Activity: Return to Normal Activity Call your doctor if you observe: Fever of 101 or Higher, Shortness of breath, Dizziness, Fainting spells, Swelling in the ankles, Chest pain, Increased palpitations (irregular heartbeat) Home Medications: Medications to take at Discharge Lisinopril [Zestril] 40 mg PO DAILY 04/30/13 Omeprazole [Prilosec] 20 mg PO DAILY 04/30/13 Simvastatin [Zocor] 20 mg PO QHS 04/30/13 Aspirin E.C. [Ecotrin] 325 mg PO BID #60 tablet 05/08/13 Amlodipine [Norvasc] 5 mg PO DAILY 01/17/20 Cyclobenzaprine HCl 10 mg PO TID 01/17/20 Sertraline HCl [Zoloft] 50 mg PO DAILY 01/17/20 Primary Care Physician: Harinder Sanchez MD [NON-STAFF] - Please follow up with your Primary Care Physician in: 3-5 days Please Follow Up With: 180 When: 01/29/2020 Disposition: Home Minutes spent on discharge:: 35 Patient Condition:: Stable Medical Necessity - Tobacco Use Smoking Status: Current every day smoker Tobacco Use: Cigarettes Meaningful Use Info Meaningful Use Diagnoses (Choose all that apply): None applicable Inpatient E&M: 21490 Disch Hosp
== END 2020-01-20 11:37 | disposition home or self-care (01) | DRG 897 ==
LOC: ED 11:10 → MS3 11:49
PROVIDERS: Admitting Provider Internal Medicine; Emergency Provider Emergency Medicine; PCP Physician Assistant; Visit Provider Family Medicine
DX: F10.229 Alcohol dependence with intoxication, unspecified (principal); N17.9 Acute kidney failure, unspecified; E87.1 Hypo-osmolality and hyponatremia; F10.239 Alcohol dependence with withdrawal, unspecified; K70.10 Alcoholic hepatitis without ascites; I10 Essential (primary) hypertension; K21.9 Gastro-esophageal reflux disease without esophagitis; E86.1 Hypovolemia; E87.5 Hyperkalemia; G89.29 Other chronic pain; M54.5 Low back pain; F32.9 Major depressive disorder, single episode, unspecified; F17.210 Nicotine dependence, cigarettes, uncomplicated; Z79.82 Long term (current) use of aspirin; Z79.899 Other long term (current) drug therapy; E78.5 Hyperlipidemia, unspecified; D53.9 Nutritional anemia, unspecified
CPT/HCPCS: 36415; 80048; 80053; 80307; 80320; 83735; 84100; 85025; 85610; 97802; 99251; 99284; 99406; J7030; J7120; A4216; G0463; G0480

== ENCOUNTER 2020-05-03 10:29 | Emergency (ER) | payer BC, SELFPAY ==
[2020-01-17 12:34] VITALS: BMI 33.7
[2020-05-03 10:30] VITALS: BP 152/86; PULSE 90; RESP 19; TEMP 36.7; O2SAT 99; BMI 36.6
--- NOTE | 2020-05-03 10:36 | NURSING ---
black rt eye from fall on monday. neck is stiff from fall.
--- NOTE | 2020-05-03 10:47 | CT_ITS ---
STUDY: CT CERVICAL SPINE WITHOUT CONTRAST REASON FOR EXAM: Male, 65 years old. FALL, 05/01/20, NO LOC, NECK PAIN RADIATION DOSAGE (If Supplied By Facility): CTDIvol = ( 32.15 ) mGy, DLP = ( 672.46 ) mGycm TECHNIQUE: High resolution transaxial imaging was performed without contrast material. Sagittal and coronal images were reconstructed. Individualized dose optimization techniques were used for this CT. COMPARISON: None FINDINGS: Normal craniovertebral junction. There are degenerative changes of the anterior atlantoaxial articulation. Normal odontoid process. Normal cervical lordosis. Normal vertebral bodies and posterior osseous elements. C2-3: Moderate left facet hypertrophy produces mild left neural foraminal stenosis. No central spinal stenosis. C3-4: Mild bilateral facet hypertrophy with ankylosis of the facet joints. 2 mm of anterolisthesis of C3 on C4. No central spinal stenosis. Mild bilateral neural foraminal stenosis. C4-5: Mild bilateral facet hypertrophy with ankylosis of the facet joints with mild bilateral neural foraminal stenosis. No central spinal stenosis. C5-6: Mild broad disc osteophyte complex and bilateral uncovertebral hypertrophy produces mild spinal stenosis and mild bilateral neural foraminal stenosis. C6-7: Moderate broad disc osteophyte complex and bilateral vertebral hypertrophy produces moderate spinal stenosis and the moderate by lateral neural foraminal stenosis. C7-T1: Normal endplates. Normal disc height and morphology. Normal central canal and intervertebral neuroforamina. Normal visualized soft tissue structures. CT/Spine Cervical without Contras IMPRESSION: No acute fracture or subluxation. Electronically Signed: Dale Nunez MD at 11:47 EST Tel , Service support ,
--- NOTE | 2020-05-03 10:47 | CT_ITS ---
STUDY: CT BRAIN WITHOUT CONTRAST REASON FOR EXAM: Male, 65 years old. FALL, 05/01/20, NO LOC, NECK PAIN RADIATION DOSAGE (If Supplied By Facility): CTDIvol = ( 44.99 ) mGy, DLP = ( 829.85 ) mGycm TECHNIQUE: Transaxial CT imaging of the brain was performed without administration of intravenous contrast material. Individualized dose optimization techniques were used for this CT. COMPARISON: No relevant priors. FINDINGS: Normal soft tissue structures. Normal calvarium. Normal size ventricles and extra-axial spaces for the patient''s age. Normal white matter tracts of the cerebral hemispheres. Normal basal ganglia and thalami. Normal brainstem. Normal cerebellum. There is no intracranial hemorrhage. There are no findings of an acute ischemic infarction. Normal visualized paranasal sinuses. CT/Brain/Head without Contrast IMPRESSION: Normal unenhanced CT scan of the brain. Electronically Signed: Dale Nunez MD at 11:44 EST Tel , Service support ,
--- NOTE | 2020-05-03 10:48 | ED.DCSUM_ITS ---
History of Present Illness Chief Complaint: Other, Pain/Inj Detail of Chief Complaint: Neck pain and stiffness Informant: Patient Onset: Days Context: Gradual Onset Current Severity: Moderate Maximum Severity: Moderate Narrative: Patient presents with a 2-day history of neck pain and stiffness. He had a mechanical fall 2 days ago after stepping on a stepping stone that was not stable. He fell forward landing on the right side of his face and right shoulder. He denies loss of consciousness. He is not on anticoagulants. He is complaining of neck pain and difficulty turning his neck side to side. He states he called his chiropractor who recommended he have imaging performed. Patient denies pain radiating to his arms. No paresthesias. - Past Medical History (1) Depression Status: Chronic (2) GERD (gastroesophageal reflux disease) Status: Chronic (3) High cholesterol Status: Chronic (4) Hypertension Status: Chronic Past Medical History - Allergies and Home Meds Allergies/Adverse Reactions: Allergies oxycodone HCl [From OxyContin] Allergy (Verified 05/03/20 10:30) Rash Primary Care Physician: Casey Hernandez PA [Primary Care Provider] - Prior records reviewed: Yes Surgical History: total knee arthroplasty - B Smoking Status: Current every day smoker Review of Systems General: Denies: Chills, Fever Eyes: Denies: Visual changes - bilaterally ENT: Denies: Bilateral ear pain, Sore throat Cardiovascular: Denies: Chest pain Respiratory: Denies: Dyspnea Gastrointestinal: Denies: Abdominal pain, Vomiting Musculoskeletal: Reports: Neck pain. Denies: Extremity Pain Skin: Denies: Rash Neurological: Denies: Headache, Weakness, Parasthesia Hematologic: Denies: Easy bruising, Easy bleeding Allergy: Denies: Uticaria Physical Exam Vital Signs/Narrative: Vital Signs Temp Pulse Resp BP Pulse Ox 05/03/20 10:30 98.0 F 90 19 H 152/86 H 99 Inital Vital Signs reviewed: Yes General: Well nourished, Well developed Head: Normocephalic ENT: Moist mucous membranes Neck: Supple, - - Midline and paracervical tenderness to palpation. Cardiovascular: Regular rate, Regular rhythm Respiratory: No distress, CTA bilaterally Abdomen: Soft, Nontender Back: - - No significant tenderness over the thoracic or lumbar spine. Skin: Normal color Neurological: Alert, Oriented x3, - - Decreased range of motion of the neck. Normal strength and sensation in the extremities. Psychological: Normal affect Diagnostic/Tx/Re-eval Impressions Brain CT 05/03/20 10:47 IMPRESSION: Normal unenhanced CT scan of the brain. Electronically Signed: Dale Nunez MD at 11:44 EST Tel , Service support , Cervical Spine CT 05/03/20 10:47 IMPRESSION: No acute fracture or subluxation. Electronically Signed: Dale Nunez MD at 11:47 EST Tel , Service support , 05/03/20 10:47 CT Cervical [Spine Cervical without Contras] [CT] Stat CT Head [Brain/Head without Contrast] [CT] Stat - Medical Decision Making CT scans are reviewed with the patient. There is no evidence of fracture or malalignment. Patient has muscle relaxer and naproxen at home. He will be written for [place] for breakthrough pain as well. ED Disposition - Plan for ED Patient: Disposition: Home or Assisted Living Diagnosis: Cervical muscle strain, Muscle spasm Instructions: ED Neck Sprain or Strain, ED Muscle Spasm Prescriptions: Hydrocodone Bitart/Apap 5-325 [[place] 5MG-325MG] 1 tablet PO Q6H PRN PRN 3 Days #10 tablet PRN Reason: Pain Transmission Status: Received by [id number] Referrals: Casey Hernandez PA [Primary Care Provider] - 3-5 Days if not improving
[2020-05-03] MEDS: HYDROcodone Bitartrate/Apap 5/325 Tablet PO (12:00)
== END 2020-05-03 12:04 | disposition home or self-care (01) ==
PROVIDERS: Emergency Provider Emergency Medicine; PCP Physician Assistant
DX: S16.1XXA Strain of muscle, fascia and tendon at neck level, initial encounter (principal); M62.838 Other muscle spasm; W01.10XA Fall on same level from slipping, tripping and stumbling with subsequent striking against unspecified object, initial encounter; Y93.9 Activity, unspecified; Y92.9 Unspecified place or not applicable; Y99.9 Unspecified external cause status; I10 Essential (primary) hypertension; E78.00 Pure hypercholesterolemia, unspecified; K21.9 Gastro-esophageal reflux disease without esophagitis; F32.9 Major depressive disorder, single episode, unspecified; F17.200 Nicotine dependence, unspecified, uncomplicated; Z79.82 Long term (current) use of aspirin; Z79.899 Other long term (current) drug therapy; Z96.653 Presence of artificial knee joint, bilateral
CPT/HCPCS: 70450; 72125; 99283

== ENCOUNTER 2020-08-06 14:23 | Outpatient (RCR) | payer BC, SELFPAY ==
[2020-08-06] MEDS: COVID-19 VACC, MRNA(PFIZER)/PF 30 MCG/0.3 ML SYRINGE IM (09:47)
[2020-08-27] MEDS: COVID-19 VACC, MRNA(PFIZER)/PF 30 MCG/0.3 ML SYRINGE IM (09:31)
== END 2020-08-06 23:59 ==
LOC: IMMUN 14:23
PROVIDERS: PCP Physician Assistant; Visit Provider Family Medicine
DX: Z23 Encounter for immunization (principal)
CPT/HCPCS: 0001A; 0002A; 91300

== ENCOUNTER 2024-04-30 09:48 | Observation (INO) | payer BC, MEDICARE, SELFPAY ==
[2024-04-30] VITALS (15 sets, daily range): BP systolic 140–185; BP diastolic 76–98; PULSE 60–117; RESP 15–22; TEMP 36.2–37.2; O2SAT 93–98; BMI 43.0; BMI 40.5
--- NOTE | 2024-04-30 10:08 | RAD_ITS ---
STUDY: X-RAY CHEST REASON FOR EXAM: Male, 69 years old. Shortness of breath. Bilateral lower extremity edema. TECHNIQUE: PA and lateral views of the chest. COMPARISON: Comparison is made with prior study dated December 12, 2006. FINDINGS: EKG electrodes are seen. Impression congestion mild CHF with superimposed bibasilar atelectasis. Blunting of both costophrenic angles. Normal size heart. Normal mediastinum and sheri. Normal visualized pulmonary arteries. There is atherosclerotic calcification of the aortic arch with tortuosity. There are diffuse degenerative changes of the visualized thoracic spine. Normal visualized ribs, clavicles, and shoulders. There is no demonstrated abnormality of the visualized soft tissue structures of the upper abdomen. RAD/Chest PA and Lateral IMPRESSION: Findings suggestive of a vascular congestion and CHF with bibasilar atelectasis. Electronically Signed: Orlin Bales MD at 10:49 EST ,
--- NOTE | 2024-04-30 10:15 | EKG12_ITS ---
Test Reason : RHYTHM CHANGE Blood Pressure : */* mmHG Vent. Rate : 92 BPM Atrial Rate : 92 BPM P-R Int : 172 ms QRS Dur : 86 ms QT Int : 360 ms P-R-T Axes : 70 57 72 degrees QTcB Int : 445 ms Normal sinus rhythm Normal ECG When compared with ECG of 01-May-2024 00:06, MANUAL COMPARISON REQUIRED DATA IS UNCONFIRMED Confirmed by SAMIA RIZVI, BETTY ([id number]), editorial writer LUCY PAGAN ([id number]) on 05/01/2024 2:16:42 PM Referred By: TAMARA Confirmed By: BETTY GRACIA MD
[2024-04-30 10:43] LABS: Absolute Lymphocyte Count 0.99 X10^3/uL (0.83-4.51); Absolute Neutrophil Count 6.4 X10^3/uL (2.0-7.7); Basophil# 0.03 X10^3/uL; Basophil% 0.4 % (0-1); Eosinophil# 0.03 X10^3/uL; Eosinophils% 0.4 % (0-5); Hematocrit 27.4 % (40-54); Hemoglobin 8.3 g/dL (13.0-16.5); Lymphocyte # 0.99 X10^3/ul (0.83-4.51); Lymphocyte % 11.9 % (19-41); Mean Corp Hgb Conc 30.3 g/dL (32-36); Mean Corpuscular Hgb 34.4 pg (27.0-32.0); Mean Corpuscular Volume 113.7 fL (80-94); Mean Platelet Vol. 10.2 fl (6.2-12.0); Monocyte# 0.79 X10^3/uL; Monocyte% 9.5 % (0-10); NRBC Flagged by Analyzer 0 % (0-5); Neutrophil # 6.38 X10^3/uL (2.7-7.7); Neutrophil % 76.6 % (47-70); POSITIVE MORPHOLOGY YES; Platelet Count 360 K/mm3 (150-450); RBC Distribution Width CV 21.2 % (11.6-14.6); RBC Distribution Width SD 89.1 fl (35.1-43.9); Red Blood Count 2.41 M/mm3 (4.6-6.2); White Blood Count 8.3 K/mm3 (4.4-11.0)
[2024-04-30 10:44] LABS: Differential Indicated SCAN CRITERIA MET
[2024-04-30 10:51] LABS: International Normalized Ratio 1.1; Prothrombin Time (Protime)PT. 13.8 SECONDS (11.7-14.9)
[2024-04-30 10:52] LABS: Partial Thromboplast Time 31.2 Seconds (24.1-36.2)
--- NOTE | 2024-04-30 10:57 | EX.ED.DYSGE1 ---
HPI History of Present Illness Chief Complaint: Shortness of Breath Narrative Narrative: Patient is a 69-year-old male with a past medical history of stage IV lung cancer underwent chemotherapy not actively getting treated currently as he completed the regimen, hypertension who presents to the emergency department with a chief complaint of lower extremity swelling and shortness of breath. Patient states that yesterday he noted that he had swelling in his feet and then when he woke up this morning he had significant swelling in his lower extremities bilaterally. He states that he has a lot of difficulty with walking as he becomes very short of breath with minimal exertion. He states that he does not have a history of heart failure to his knowledge. Patient states that he did have a history of a blood clot several years ago after a knee surgery however notes that he has not had 1 since. [facility] Medical History Lung cancer Home Medications ?Medication ?Instructions ?Recorded ?Last Taken ?Type lisinopril 10 mg tablet 40 mg PO DAILY 04/30/13 Unknown History omeprazole 20 mg capsule,delayed 20 mg PO DAILY 04/30/13 05/06/13 08:28 History release simvastatin 20 mg tablet 20 mg PO QHS 04/30/13 Unknown History aspirin 325 mg tablet,delayed 325 mg PO BID ##60 05/08/13 Unknown Rx release amlodipine 5 mg tablet 5 mg PO DAILY 01/17/20 Unknown History cyclobenzaprine 10 mg tablet 10 mg PO TID 01/17/20 Unknown History sertraline 50 mg tablet 50 mg PO DAILY 01/17/20 Unknown History Allergy/AdvReac Type Severity Reaction Status Date / Time oxycodone HCl (From Allergy Rash Verified 04/30/24 09:49 OxyContin) Social History Smoking Status: Former smoker ROS ROS ED ROS Narrative Constitutional: Denies any fevers, chills, lightness, dizziness Eyes: Denies change in vision double vision blurry vision Cardiovascular: Denies chest pain or palpitations Respiratory: Complains of shortness of breath as noted above denies coughing or wheezing Abdomen: Denies abdominal pain nausea vomit diarrhea : Denies any urinary symptoms Neurological: Denies any numbness, weakness, tingling Musculoskeletal: Complains of bilateral lower extremity swelling as noted above, denies back pain Skin: Denies any rashes or lesions EXAM Physical Exam Narrative Exam Narrative: General: Patient was lying in bed rest comfortably did not appear to be in acute distress Head: Atraumatic, normocephalic Eyes: PERRL bilateral, EOMI biotic no conjunctival injection noted Neck: Soft, supple, trachea midline Cardiovascular: Patient tachycardic with a regular rhythm no murmurs gallops rubs noted Respiratory: Diminished breath sounds at the bases bilaterally Abdomen: Soft, nondistended, no tenderness palpation Extremities: +4/5 strength noted in the bilateral upper and lower extremities, patient has 3+ pitting edema in the bilateral lower extremities Neurological: Patient following commands knew he was at [facility] years 2023 Skin: Warm, dry, intact Const Vital Signs: 04/30/24 09:49 04/30/24 09:49 04/30/24 09:52 Temperature 98.9 F 98.2 F Temperature Source Oral Oral Pulse Rate 117 H 108 H 109 H Respiratory Rate 22 H 15 Respiratory Effort Respiratory Depth Respiratory Pattern Blood Pressure 158/98 H 163/89 H Blood Pressure Mean 118 113 Pulse Ox 97 96 Oxygen Delivery Method Room Air Room Air 04/30/24 09:58 04/30/24 10:08 04/30/24 10:52 Temperature 98.2 F Temperature Source Oral Pulse Rate 108 H Respiratory Rate 16 Respiratory Effort Short of Breath Respiratory Depth Shallow Respiratory Pattern Normal Blood Pressure 171/93 H Blood Pressure Mean 119 Pulse Ox 95 93 Oxygen Delivery Method Room Air Room Air Room Air 04/30/24 11:00 04/30/24 12:00 04/30/24 12:06 Temperature 98.3 F 98.4 F Temperature Source Oral Oral Pulse Rate 103 H 91 82 Respiratory Rate 18 17 17 Respiratory Effort Respiratory Depth Respiratory Pattern Blood Pressure 185/84 H 146/83 H 140/86 H Blood Pressure Mean 117 104 104 Pulse Ox 94 95 95 Oxygen Delivery Method Room Air Room Air Room Air MDM MDM MDM Narrative Medical decision making narrative: Patient is a 69-year-old male who presents to the emergency department chief complaint of dyspnea on exertion and bilateral lower extremity swelling. Patient will have a workup performed here on the differential diagnose includes includes but not limited to CHF, ACS, pneumonia, upper respiratory infection second viral etiology. Once workup is obtained reviewed he will be reevaluated. Patient CBC reviewed and showed no evidence leukocytosis white blood count of 8.3, hemoglobin was 8.3, platelet count was noted to be 360. Patient's INR normal at 1.1, PT of 13.8. Patient sodium normal at 138, potassium normal at 4.7, creatinine normal at 0.91. Patient's troponin was noted to be 12 and his EKG was reviewed and independently interpreted by myself which showed sinus tachycardia with a rate of 108 bpm. Patient's proBNP was noted to be 87.2, TSH was noted be normal at 1.77. Patient's x-ray of his chest reviewed by myself and by radiology which showed findings concerning for CHF with vascular congestion. Patient was ambulated here in the emergency department and he did become hypoxic. This is consistent with CHF with his 2+ pitting edema in the bilateral lower extremities and his chest x-ray is concerning for this as well therefore he will be given 40 mg IV Lasix. Patient's case will be discussed with hospitalist for admission. Discussed case with Dr. Hairston who accept the patient for admission. Patient notified is agreeable this plan all question concerns answered bedside. Lab Data Labs: Laboratory Results - last 24 hr 04/30/24 10:37 WBC 8.3 RBC 2.41 L Hgb 8.3 L Hct 27.4 L MCV 113.7 H MCH 34.4 H MCHC 30.3 L RDW Std Deviation 89.1 H RDW Coeff of Shireen 21.2 H Plt Count 360 MPV 10.2 Immature Gran % (Auto) 1.200 H Neut % (Auto) 76.6 H Lymph % (Auto) 11.9 L Pender % (Auto) 9.5 Eos % (Auto) 0.4 Baso % (Auto) 0.4 Absolute Neuts (auto) 6.4 Absolute Lymphs (auto) 0.99 Nucleated RBC % 0 Anisocytosis 2+ PT 13.8 INR 1.1 APTT 31.2 Sodium 138 Potassium 4.7 Chloride 108 H Carbon Dioxide 25.0 Anion Gap 5 BUN 8 Creatinine 0.91 Estim Creat Clear Calc 111.10 Est GFR (MDRD) Af Amer 106 Est GFR (MDRD) Non-Af 88 BUN/Creatinine Ratio 8.8 L Glucose 130 H Calcium 8.5 Magnesium 2.1 Troponin I High Sens 12 B-Natriuretic Peptide 87.2 TSH 1.770 Radiography Diagnostic Testing: Clinical Impression(s) from Imaging Studies Chest X-Ray 04/30/24 10:08 IMPRESSION: Findings suggestive of a vascular congestion and CHF with bibasilar atelectasis. Electronically Signed: Orlin Bales MD at 10:49 EST , Discharge Plan Triage Chief Complaint: Shortness of Breath ED Provider: Jay Beckett Dx/Rx/DC Orders Clinical Impression: Hypoxia, CHF (congestive heart failure) Prescriptions: No Action simvastatin 20 MG tablet 20 mg PO QHS Patient Comments: CHOLESTEROL lisinopril 10 MG tablet 40 mg PO DAILY Patient Comments: BLOOD PRESSURE omeprazole 20 MG capsule 20 mg PO DAILY Patient Comments: STOMACH aspirin 325 MG tablet 325 mg PO BID Qty: 60 0RF Patient Comments: ANTIPLATELET cyclobenzaprine 10 MG tablet 10 mg PO TID amlodipine 5 MG tablet 5 mg PO DAILY sertraline 50 MG tablet 50 mg PO DAILY Primary Care Provider: Tyra Magaña Referrals: Tyra Magaña, [facility] [Primary Care Provider] - Print Language: Irish Disposition Disposition: Acute Care Hospital [facility]
--- NOTE | 2024-04-30 11:02 | ED.RN ---
THIS NURSE ASKED DR LOCKETT ABOUT PT TAKING HIS MORNING BP MEDS THAT HE DID NOT TAKE. AT BEDSIDE AND BROUGHT PO HOME MEDS. DR LOCKETT SAID PT CAN TAKE HIS BP MEDS.
[2024-04-30 11:06] LABS: Anisocytosis 2+
[2024-04-30 11:09] LABS: Anion Gap 5 (5-15); BUN 8 mg/dL (7-18); BUN/Creat Ratio 8.8 RATIO (10-20); Calcium,Total 8.5 mg/dL (8.5-10.1); Chloride 108 mmol/L (98-107); Creatinine, Serum 0.91 mg/dL (0.70-1.30); EST Glomerular Filtration Rate 88 mL/min (>60); Est Glom Filt Rate - Afr Amer 106 mL/min (>60); Glucose 130 mg/dL (74-106); Magnesium 2.1 mg/dL (1.6-2.6); Potassium 4.7 mmol/L (3.5-5.1); Sodium Level 138 mmol/L (136-145); Troponin-I HS 12 pg/mL (3.0-78.0)
[2024-04-30 11:18] LABS: BNP,B-Type NATRIURETIC PEPTIDE 87.2 pg/mL (0-100)
[2024-04-30] MEDS: Furosemide 40 MG/4 ML Vial IV ×2 (12:54→18:16)
--- NOTE | 2024-04-30 12:57 | ECHOCS_ITS ---
Reason For Study: SHORTNESS OF BREATH Procedure This was a 2D Doppler, Color Flow transthoracic echocardiogram. The study was technically difficult. Contrast injection was performed. Exam performed portable in patient room. Left Ventricle Normal LV size. Left ventricular systolic function is normal. The left ventricular ejection fraction is 55 %. No regional wall motion abnormalities noted. Right Ventricle Normal RV size. Normal systolic function. Atria Normal left atrium. Normal right atrium. Mitral Valve There is mild to moderate mitral annular calcification. Tricuspid Valve Normal tricuspid valve. Aortic Valve Trisinus/trileaflet aortic valve. Great Vessels Normal aortic root. The pulmonary artery is normal size. Normal inferior vena cava. Pericardium/Pleural No pericardial effusion. Medication Diluted definity 2ml given slow IV push to enhance endocardial definition. MMode/2D Measurements & Calculations LVIDd: 4.5 cm IVSd: 1.6 cm LVOT diam: 2.2 cm LVIDs: 2.5 cm LVPWd: 1.2 cm LVOT area: 3.7 cm2 RVDd: 3.8 cm FS: 46.0 % asc Aorta Diam: 3.6 cm LAV(MOD-bp): 60.5 ml LVAd ap4: 37.2 cm2 LAV(MOD-bp) Indexed: 23.9 ml/m2 LVLd ap4: 9.2 cm LAV(MOD-sp2): 66.2 ml EDV(MOD-sp4): 125.1 ml LAV(MOD-sp4): 52.3 ml EDV(sp4-el): 128.2 ml LVAs ap4: 24.6 cm2 LVLs ap4: 7.6 cm ESV(MOD-sp4): 67.0 ml ESV(sp4-el): 67.4 ml EF(MOD-sp4): 46.5 % EF(sp4-el): 47.5 % LVAd ap2: 34.1 cm2 SV(MOD-sp4): 58.1 ml SV(MOD-sp2): 56.9 ml LVLd ap2: 8.5 cm SI(MOD-sp4): 23.0 ml/m2 SI(MOD-sp2): 22.5 ml/m2 EDV(MOD-sp2): 112.7 ml EDV(sp2-el): 116.2 ml LVAs ap2: 23.4 cm2 LVLs ap2: 8.1 cm ESV(MOD-sp2): 55.7 ml ESV(sp2-el): 57.2 ml EF(MOD-sp2): 50.5 % SV(sp4-el): 60.9 ml Ao sinus diam: 3.[address] Junction: 2.4 cm LA dimension(2D): 3.9 cm LA A4 area: 18.8 cm2 RA A4 area: 15.9 cm2 TAPSE: 2.4 cm Time Measurements MV dec time: 0.09 sec Doppler Measurements & Calculations MV E max antonio: 140.0 cm/sec Lat Peak E' Antonio: 10.0 cm/sec Med Peak E' Antonio: 10.0 cm/sec E/E' lat: 14.0 E/E' med: 14.0 MV V2 max: 181.5 cm/sec Ao V2 max: 221.4 cm/sec LV V1 max: 119.4 cm/sec MV max P.2 mmHg Ao max P.8 mmHg LV V1 max P.7 mmHg MV V2 mean: 134.9 cm/sec Ao V2 mean: 145.8 cm/sec LV V1 mean P.3 mmHg MV mean P.6 mmHg Ao mean P.7 mmHg LV V1 mean: 88.0 cm/sec MV V2 VTI: 31.6 cm Ao V2 VTI: 44.2 cm LV V1 VTI: 25.6 cm MVA(VTI): 3.0 cm2 AV (velocity ratio): 0.58 IMANI(I,D): 2.2 cm2 IMANI(V,D): 2.0 cm2 SV(LVOT): 95.5 ml PA V2 max: 86.5 cm/sec ECHO/Echo Complete W/ Contrast Interpretation Summary Normal LV size. Left ventricular systolic function is normal. The left ventricular ejection fraction is 55 %. Contrast injection was performed. The study was technically difficult. Ordering Physician: Judson Hairston Performed By: Kat Santizo RDCS and Student
[2024-04-30 14:36] LABS: Ferritin 217 ng/mL (26-388); Iron 61 ug/dL (65-175); Iron Binding Capacity,Total 363 ug/dL (250-450); PERCENT IRON SATURATION 16.8 % (15.0-55.0)
--- NOTE | 2024-04-30 14:46 | HP.PCM.HOS_ITS ---
HPI - General General Date of Admission: 04/30/24 HPI Narrative ABDIRIZAK COLINDRES, is a 69 M who presents to the hospital with shortness of breath. He says it has been going on for couple weeks as he has been getting worse. He is also has lower extremity edema which is new. It is bilateral. He has been noticing difficulty with laying flat and increased dyspnea on exertion. He denies any chest pain or lightheadedness. He does have a history of stage IV lung cancer that he is undergoing chemotherapy for may believe that he will be starting immunotherapy in a couple weeks. He follows with [facility] oncology. Of note his hemoglobin is 8.3 which has started to drops in January, it does appear that he has had a workup at the [facility] as his MCV is elevated, his B12 folic acid. His retake count and his absolute retake count were both elevated, and his iron studies were normal. In the ER he had an amatory pulse ox of 86% on room air though he is satting normally at rest on room air. BNP was also normal which could be falsely low secondary to his morbid obesity. [facility] Medical History Lung cancer Home Medications ?Medication ?Instructions ?Recorded ?Last Taken ?Type omeprazole 20 mg capsule,delayed 20 mg PO DAILY 04/30/13 04/30/24 History release cyclobenzaprine 10 mg tablet 10 mg PO TID PRN spasms 01/17/20 Unknown History albuterol sulfate 90 mcg/actuation 2 puff inhalation Q4H PRN PRN 04/30/24 Unknown History aerosol inhaler wheezing bupropion HCl 75 mg tablet 75 mg PO BID mood 04/30/24 04/30/24 History labetalol 100 mg tablet 100 mg PO BID blood pressure 04/30/24 04/30/24 History levothyroxine 50 mcg tablet 50 mcg PO DAILY disorder of 04/30/24 04/30/24 History thyroid gland metformin 1,000 mg tablet 1,000 mg PO DAILY diabetes 04/30/24 Unknown History naltrexone 50 mg tablet 50 mg PO DAILY 04/30/24 04/29/24 History simvastatin 40 mg tablet 40 mg PO QHS cholesterol 04/30/24 04/29/24 History sodium chloride 1,000 mg soluble 1,000 mg PO TID supplement 04/30/24 04/29/24 History tablet tamsulosin 0.4 mg capsule 0.4 mg PO QHS urine flow 04/30/24 04/29/24 History varenicline 1 mg tablet 1 mg PO BID quit smoking 04/30/24 04/29/24 History Allergy/AdvReac Type Severity Reaction Status Date / Time oxycodone HCl (From Allergy Rash Verified 04/30/24 13:16 OxyContin) Family History (Updated 04/30/24 @ 16:[address] Judson Hairston MD) Other Heart disease Surgical History (Updated 04/30/24 @ 16:[address] Judson Hairston MD) History of knee replacement Social History (Updated 04/30/24 @ 13:46 by Opal Plata) Smoking Status: Former smoker ROS Constitutional Constitutional: Denies chills, fatigue, fever(s) or malaise Eyes Eyes: Denies blurry vision ENT HEENT: Denies headache(s) or nasal discharge Cardiovascular Cardiovascular: Reports edema and orthopnea; Denies chest pain, dyspnea on exertion or syncope Respiratory/Chest Respiratory/Chest: Reports shortness of breath with exertion; Denies cough or shortness of breath at rest Gastrointestinal Gastrointestinal: Denies constipation, diarrhea, nausea or vomiting Genitourinary Genitourinary: Denies dysuria Neurologic Neurologic: Denies focal weakness, numbness or tremor(s) Psychiatric Psychiatric: Denies anxiety or depression Vital Signs Vital Signs Vital Signs: 04/30/24 09:49 04/30/24 09:49 04/30/24 09:52 Temperature 98.9 F 98.2 F Temperature Source Oral Oral Pulse Rate 117 H 108 H 109 H Respiratory Rate 22 H 15 Respiratory Effort Respiratory Depth Respiratory Pattern Blood Pressure 158/98 H 163/89 H Blood Pressure Mean 118 113 Blood Pressure Source Blood Pressure Position Pulse Ox 97 96 Oxygen Delivery Method Room Air Room Air 04/30/24 09:58 04/30/24 10:08 04/30/24 10:52 Temperature 98.2 F Temperature Source Oral Pulse Rate 108 H Respiratory Rate 16 Respiratory Effort Short of Breath Respiratory Depth Shallow Respiratory Pattern Normal Blood Pressure 171/93 H Blood Pressure Mean 119 Blood Pressure Source Blood Pressure Position Pulse Ox 95 93 Oxygen Delivery Method Room Air Room Air Room Air 04/30/24 11:00 04/30/24 12:00 04/30/24 12:06 Temperature 98.3 F 98.4 F Temperature Source Oral Oral Pulse Rate 103 H 91 82 Respiratory Rate 18 17 17 Respiratory Effort Respiratory Depth Respiratory Pattern Blood Pressure 185/84 H 146/83 H 140/86 H Blood Pressure Mean 117 104 104 Blood Pressure Source Blood Pressure Position Pulse Ox 94 95 95 Oxygen Delivery Method Room Air Room Air Room Air 04/30/24 13:00 04/30/24 13:16 04/30/24 13:55 Temperature 97.7 F L 97.7 F L 98.3 F Temperature Source Temporal Oral Pulse Rate 92 92 97 Respiratory Rate 19 H 17 19 H Respiratory Effort Respiratory Depth Respiratory Pattern Blood Pressure 149/80 H 153/84 H 150/84 H Blood Pressure Mean 103 107 106 Blood Pressure Source Monitor Blood Pressure Position Semi-Fowlers Pulse Ox 94 95 98 Oxygen Delivery Method Room Air Room Air Weight Weight: 299 lb Body Mass Index (BMI) 40.5 Physical Exam Narrative General: Alert, Oriented x3, Cooperative, No apparent distress HEENT: Atraumatic, PERRLA, EOMI, Normocephalic Oral: Moist Mucosa Neck: Supple, No JVD Lungs: Diminished, Normal air movement, No rhonchi, No wheeze, No rales Cardiovascular: Regular rate, Regular Rhythm, Normal S1, Normal S2, No murmurs Abdomen: Soft, Non Tender, Non-Distended, No Hepato-splenomegaly Extremities: Bilateral pitting edema, Capillary Refill Less than 3 Seconds Skin: No rashes, No breakdown Musculoskeletal: No Tenderness to Palpation of Joints or Extremities Neurological: No focal neurological deficits, Motor Exam 5/5 strength throughout, Sensory exam intact to light touch and pain Psych/Mental Status: Normal Affect, Appropriate Results Lab / Micro Data 04/30/24 10:37 04/30/24 10:37 Labs: Laboratory Results - last 24 hr 04/30/24 10:37: WBC 8.3, RBC 2.41 L, Hgb 8.3 L, Hct 27.4 L, MCV 113.7 H, MCH 34.4 H, MCHC 30.3 L, RDW Std Deviation 89.1 H, RDW Coeff of Shireen 21.2 H, Plt Count 360, MPV 10.2, Immature Gran % (Auto) 1.200 H, Neut % (Auto) 76.6 H, Lymph % (Auto) 11.9 L, Rabun % (Auto) 9.5, Eos % (Auto) 0.4, Baso % (Auto) 0.4, Absolute Neuts (auto) 6.4, Absolute Lymphs (auto) 0.99, Nucleated RBC % 0, Anisocytosis 2+, PT 13.8, INR 1.1, APTT 31.2, Sodium 138, Potassium 4.7, C hloride 108 H, Carbon Dioxide 25.0, Anion Gap 5, BUN 8, Creatinine 0.91, Estim Creat Clear Calc 111.10, Est GFR (MDRD) Af Amer 106, Est GFR (MDRD) Non-Af 88, B UN/Creatinine Ratio 8.8 L, Glucose 130 H, Calcium 8.5, Magnesium 2.1, Iron 61 L, TIBC 363, Iron Saturation 16.8, Ferritin 217, Troponin I High Sens 12, B- Natriuretic Peptide 87.2, TSH 1.770 Imaging Radiology Impression Chest X-Ray 04/30/24 10:08 IMPRESSION: Findings suggestive of a vascular congestion and CHF with bibasilar atelectasis. Electronically Signed: Orlin Bales MD at 10:49 EST , Assessment & Plan Assessment/Plan (1) CHF (congestive heart failure): PLAN: Plan 1. Dyspnea on exertion with hypoxia in setting of possible heart failure/essential HTN/HLD ? BNP is normal and he is not requiring any oxygen on room air at rest however he is requiring oxygen with ambulation ? Echo is pending ? Continue with IV Lasix 40 mg twice daily ? Continue with his home blood pressure medications ? Continue with his home cholesterol medications ? Monitor make adjustments as necessary 2. Stage IV lung cancer in the middle of chemotherapy/COPD ? She does not appear to be in a COPD exacerbation ? Continue with his home inhalers ? Continue treatment by [facility] as an outpatient 3. Anemia ? Unclear as to the etiology, iron studies do not indicate either chronic disease or an iron deficiency ? Reticulocyte count globin clinic outpatient studies within the last week or 2 were elevated ? Will obtain a fecal occult though he denies any hematuria or melena ? His hemoglobin of 8.3 appears to be his recent baseline since the middle of January and this is being actively worked up as an outpatient by his oncologist 4. DM2 ? Sliding scale insulin ? Accu-Cheks ACHS ? Will monitor and make adjustments as necessary 5. Anxiety/depression ? Stable ? Continue with his home medications 6. BPH ? Stable ? Continue with Flomax DVT: Lovenox 75 minutes was spent on direct patient care, including documentation as well as chart review and collaboration with colleagues Charges/Coding Visit Charges Inpatient E&M: 11672 Init Hosp L3
[2024-04-30] MEDS: 0.9% Saline Lock 10 ML Syringe IV (18:16)
[2024-04-30] MEDS: Albuterol 2.5 MG/3 ML VIAL.NEB. INHALATION (19:00)
[2024-04-30] MEDS: Tamsulosin HCl 0.4 MG Capsule PO (21:27)
[2024-04-30] MEDS: Varenicline 1 MG Tablet PO (21:27)
[2024-04-30] MEDS: Atorvastatin Calcium 20 MG Tablet PO (21:28)
[2024-04-30] MEDS: Sodium Chloride 1 GM Tablet PO (21:28)
[2024-04-30] MEDS: buPROPion 75 MG Tablet PO (21:28)
[2024-04-30] MEDS: Labetalol 100 MG Tablet PO (21:28)
[2024-04-30 22:20] LABS: Bedside Glucose 137 mg/dL (74-106)
--- NOTE | 2024-04-30 23:49 | EKG12_ITS ---
Test Reason : SOB Blood Pressure : */* mmHG Vent. Rate : 108 BPM Atrial Rate : 108 BPM P-R Int : 170 ms QRS Dur : 80 ms QT Int : 326 ms P-R-T Axes : 59 56 76 degrees QTcB Int : 436 ms Sinus tachycardia Low voltage QRS Borderline ECG Confirmed by SAMIA RIZVI, BETTY ([id number]), food editor LUCY PAGAN ([id number]) on 05/01/2024 12:41:12 PM Referred By: Confirmed By: BETTY GRACIA MD
--- NOTE | 2024-05-01 00:03 | PCM.HOSP.N ---
Hospitalist Note Patient with persistent tachycardia, unclear rhythm, on labetolol. Will administer lopressor 5 mg IV x 1 and attempt to obtain EKG. Per RN patient asymptomatic.
[2024-05-01 00:47] VITALS: BP 108/76; PULSE 136
[2024-05-01] MEDS: Metoprolol Tartrate 5 MG/5 ML Vial IV (00:47)
--- NOTE | 2024-05-01 01:58 | EKG12_ITS ---
Test Reason : RHYTHM CHANGED Blood Pressure : */* mmHG Vent. Rate : 139 BPM Atrial Rate : * BPM P-R Int : * ms QRS Dur : 82 ms QT Int : 272 ms P-R-T Axes : * 51 71 degrees QTcB Int : 413 ms Atrial fibrillation with rapid ventricular response Abnormal ECG When compared with ECG of 30-Apr-2024 10:56, MANUAL COMPARISON REQUIRED DATA IS UNCONFIRMED Confirmed by SAMIA RIZVI, BETTY ([id number]), senior technical editor LUCY PAGAN ([id number]) on 05/01/2024 2:16:52 PM Referred By: TAAMRA Confirmed By: BETTY GRACIA MD
[2024-05-01 03:22] VITALS: BMI 41.0
[2024-05-01 04:00] VITALS: BP 109/85; PULSE 98; RESP 18; TEMP 36.1; O2SAT 97
[2024-05-01 06:41] LABS: Absolute Lymphocyte Count 1.65 X10^3/uL (0.83-4.51); Absolute Neutrophil Count 4.3 X10^3/uL (2.0-7.7); Basophil# 0.04 X10^3/uL; Basophil% 0.6 % (0-1); Eosinophil# 0.03 X10^3/uL; Eosinophils% 0.4 % (0-5); Hematocrit 27.1 % (40-54); Hemoglobin 8.1 g/dL (13.0-16.5); Lymphocyte # 1.65 X10^3/ul (0.83-4.51); Lymphocyte % 23.2 % (19-41); Mean Corp Hgb Conc 29.9 g/dL (32-36); Mean Corpuscular Hgb 33.8 pg (27.0-32.0); Mean Corpuscular Volume 112.9 fL (80-94); Mean Platelet Vol. 10.2 fl (6.2-12.0); Monocyte# 1.01 X10^3/uL; Monocyte% 14.2 % (0-10); NRBC Flagged by Analyzer 0 % (0-5); Neutrophil # 4.31 X10^3/uL (2.7-7.7); Neutrophil % 60.6 % (47-70); POSITIVE MORPHOLOGY YES; Platelet Count 343 K/mm3 (150-450); RBC Distribution Width CV 21.1 % (11.6-14.6); RBC Distribution Width SD 87.6 fl (35.1-43.9); White Blood Count 7.1 K/mm3 (4.4-11.0)
[2024-05-01] MEDS: Sodium Chloride 1 GM Tablet PO ×3 (06:49→20:23)
[2024-05-01] MEDS: Levothyroxine 50 MCG Tablet PO (06:49)
[2024-05-01] MEDS: 0.9% Saline Lock 10 ML Syringe IV ×3 (06:51→17:07)
[2024-05-01 06:56] LABS: Differential Indicated SCAN CRITERIA MET
[2024-05-01 07:09] LABS: Bedside Glucose 121 mg/dL (74-106)
[2024-05-01 07:24] LABS: Anion Gap 4 (5-15); BUN 11 mg/dL (7-18); BUN/Creat Ratio 13.3 RATIO (10-20); Calcium,Total 8.3 mg/dL (8.5-10.1); Chloride 105 mmol/L (98-107); Creatinine, Serum 0.83 mg/dL (0.70-1.30); EST Glomerular Filtration Rate 98 mL/min (>60); Est Glom Filt Rate - Afr Amer 119 mL/min (>60); Estimated Creatinine Clearance 122.27 ml/min; Glucose 125 mg/dL (74-106); Potassium 3.9 mmol/L (3.5-5.1); Sodium Level 137 mmol/L (136-145)
[2024-05-01 07:47] LABS: Differential Comment SCANNED
[2024-05-01 09:38] VITALS: BP 120/74; PULSE 98; RESP 18; TEMP 36.6; O2SAT 96
[2024-05-01] MEDS: Varenicline 1 MG Tablet PO ×2 (09:43→20:22)
[2024-05-01] MEDS: Labetalol 100 MG Tablet PO ×2 (09:43→20:23)
[2024-05-01] MEDS: buPROPion 75 MG Tablet PO ×2 (09:44→20:23)
[2024-05-01] MEDS: Pantoprazole Sodium 20 MG Tablet PO (09:44)
[2024-05-01] MEDS: Furosemide 40 MG/4 ML Vial IV ×2 (09:44→17:07)
[2024-05-01] MEDS: APIXABAN 5 MG TABLET PO ×2 (09:44→20:22)
[2024-05-01 11:41] VITALS: O2SAT 90; O2SAT 95
[2024-05-01 11:59] LABS: Bedside Glucose 163 mg/dL (74-106)
--- NOTE | 2024-05-01 15:00 | CASEMGMT ---
Met with patient to complete ADAME form. ADAME form explained to patient who voiced understanding and signed form. Original form placed in pt?s chart and copy provided to patient. Mile Gutierrez, Discharge Planning Asst
[2024-05-01 16:01] VITALS: BP 130/79; PULSE 94; RESP 18; TEMP 36.7; O2SAT 96
--- NOTE | 2024-05-01 17:02 | PCM.PN.HOSP ---
Subjective Subjective Doing well, no issues overnight. Says that he is breathing a little bit better Objective Data Objective Data Vital Signs: Vital Signs Temp Pulse Resp BP Pulse Ox O2 Del Method O2 Flow Rate 98.1 F 94 18 130/79 H 96 Room Air 2 05/01/24 16:01 05/01/24 16:01 05/01/24 16:01 05/01/24 16:01 05/01/24 16:01 05/01/24 16:01 05/01/24 05:00 Oxygen Flow Rate (L/min) 2 Oxygen Delivery Method Room Air Weight: 302 lb 11.115 oz Body Mass Index (BMI) 41.0 Intake & Output: Intake and Output for Last 24 Hours 04/30/24 05/01/24 05/02/24 03:59 03:59 03:59 Intake Total 750 / 750 690 / 690 Output Total 2350 / 2350 1999 Balance -1600 / -1600 -1310 / -1310 Lab / Micro Data 05/01/24 06:00 05/01/24 06:00 Labs: Laboratory Results - last 24 hr 04/30/24 21:39: POC Glucose 137 H 05/01/24 06:00: WBC 7.1, RBC 2.40 L, Hgb 8.1 L, Hct 27.1 L, MCV 112.9 H, MCH 33.8 H, MCHC 29.9 L, RDW Std Deviation 87.6 H, RDW Coeff of Shireen 21.1 H, Plt Count 343, MPV 10.2, Immature Gran % (Auto) 1.000 H, Neut % (Auto) 60.6, Lymph % (Auto) 23.2, [place] % (Auto) 14.2 H, Eos % (Auto) 0.4, Baso % (Auto) 0.6, Absolute Neuts (auto) 4.3, Absolute Lymphs (auto) 1.65, Nucleated RBC % 0, Differential Comment SCANNED, Sodium 137, Potassium 3.9, Chloride 105, Carbon Dioxide 28.0, Anion Gap 4 L, BUN 11, Creatinine 0.83, Estim Creat Clear Calc 122.27, Est GFR (MDRD) Af Amer 119, Est GFR (MDRD) Non-Af 98, BUN/Creatinine Ratio 13.3, Glucose 125 H, Calcium 8.3 L 12/11/24 06:48: POC Glucose 121 H 05/01/24 11:39: POC Glucose 163 H Micro: Microbiology 05/01/24 14:23 Stool Stool Occult Blood (LENNOX) - Final Physical Exam Narrative General: Alert, Oriented x3, Cooperative, No apparent distress HEENT: Atraumatic, PERRLA, EOMI, Normocephalic Oral: Moist Mucosa Neck: Supple, No JVD Lungs: Diminished, Normal air movement, No rhonchi, No wheeze, No rales Cardiovascular: Regular rate, Regular Rhythm, Normal S1, Normal S2, No murmurs Abdomen: Soft, Non Tender, Non-Distended, No Hepato-splenomegaly Extremities: Bilateral pitting edema, Capillary Refill Less than 3 Seconds Skin: No rashes, No breakdown Musculoskeletal: No Tenderness to Palpation of Joints or Extremities Neurological: No focal neurological deficits, Motor Exam 5/5 strength throughout, Sensory exam intact to light touch and pain Psych/Mental Status: Normal Affect, Appropriate Assessment & Plan Assessment/Plan (1) CHF (congestive heart failure): PLAN: Plan 1. Dyspnea on exertion with hypoxia in setting of possible heart failure/essential HTN/HLD/A-fib ? BNP is normal and he is not requiring any oxygen on room air at rest ? She did have an amatory pulse ox today and he managed to keep his oxygen saturations around 90 on room air ? Echo with an EF of 55%, no obvious signs of diastolic dysfunction ? Continue with IV Lasix 40 mg twice daily ? Continue with his home blood pressure medications ? Will start him on Eliquis overnight for A-fib, he may be going into A-fib at home which is possibly why he is having shortness of breath and fluid retention ? Continue with his home cholesterol medications ? Monitor make adjustments as necessary 2. Stage IV lung cancer in the middle of chemotherapy/COPD ? She does not appear to be in a COPD exacerbation ? Continue with his home inhalers ? Continue treatment by [facility] as an outpatient 3. Anemia ? Unclear as to the etiology, iron studies do not indicate either chronic disease or an iron deficiency ? Reticulocyte count globin clinic outpatient studies within the last week or 2 were elevated ? Will obtain a fecal occult though he denies any hematuria or melena ? His hemoglobin of 8.3 appears to be his recent baseline since the middle of January and this is being actively worked up as an outpatient by his oncologist 4. DM2 ? Sliding scale insulin ? Accu-Cheks ACHS ? Will monitor and make adjustments as necessary 5. Anxiety/depression ? Stable ? Continue with his home medications 6. BPH ? Stable ? Continue with Flomax DVT: Eliquis Charges/Coding Visit Charges Inpatient E&M: 41946 Subs Hosp L2
[2024-05-01 17:10] LABS: Bedside Glucose 114 mg/dL (74-106)
[2024-05-01] MEDS: Atorvastatin Calcium 20 MG Tablet PO (20:23)
[2024-05-01] MEDS: Tamsulosin HCl 0.4 MG Capsule PO (20:23)
[2024-05-01 21:00] VITALS: BP 147/79; PULSE 99; RESP 20; TEMP 36.1; O2SAT 96
[2024-05-01 22:05] LABS: Bedside Glucose 129 mg/dL (74-106)
[2024-05-02 02:42] VITALS: BMI 41.0
[2024-05-02 03:30] VITALS: BP 155/92; PULSE 88; RESP 20; TEMP 35.6; O2SAT 96
[2024-05-02 06:42] LABS: Absolute Lymphocyte Count 1.71 X10^3/uL (0.83-4.51); Absolute Neutrophil Count 4.8 X10^3/uL (2.0-7.7); Basophil# 0.04 X10^3/uL; Basophil% 0.5 % (0-1); Eosinophil# 0.04 X10^3/uL; Eosinophils% 0.5 % (0-5); Hematocrit 29.8 % (40-54); Hemoglobin 9.1 g/dL (13.0-16.5); Lymphocyte # 1.71 X10^3/ul (0.83-4.51); Lymphocyte % 22.6 % (19-41); Mean Corp Hgb Conc 30.5 g/dL (32-36); Mean Corpuscular Volume 111.2 fL (80-94); Mean Platelet Vol. 10.1 fl (6.2-12.0); Monocyte# 0.91 X10^3/uL; Monocyte% 12.1 % (0-10); NRBC Flagged by Analyzer 0 % (0-5); Neutrophil # 4.79 X10^3/uL (2.7-7.7); Neutrophil % 63.5 % (47-70); POSITIVE MORPHOLOGY YES; Platelet Count 354 K/mm3 (150-450); RBC Distribution Width CV 20.4 % (11.6-14.6); RBC Distribution Width SD 83.6 fl (35.1-43.9); Red Blood Count 2.68 M/mm3 (4.6-6.2); White Blood Count 7.6 K/mm3 (4.4-11.0)
[2024-05-02 06:49] LABS: Differential Indicated SCAN CRITERIA MET
[2024-05-02] MEDS: Sodium Chloride 1 GM Tablet PO (06:59)
[2024-05-02] MEDS: Levothyroxine 50 MCG Tablet PO (06:59)
[2024-05-02 07:15] LABS: Bedside Glucose 147 mg/dL (74-106)
[2024-05-02 07:20] LABS: Anion Gap 7 (5-15); BUN 11 mg/dL (7-18); BUN/Creat Ratio 11.5 RATIO (10-20); Calcium,Total 9.1 mg/dL (8.5-10.1); Chloride 101 mmol/L (98-107); Creatinine, Serum 0.96 mg/dL (0.70-1.30); EST Glomerular Filtration Rate 83 mL/min (>60); Est Glom Filt Rate - Afr Amer 100 mL/min (>60); Estimated Creatinine Clearance 105.71 ml/min; Glucose 159 mg/dL (74-106); Potassium 3.7 mmol/L (3.5-5.1); Sodium Level 135 mmol/L (136-145)
[2024-05-02 07:44] LABS: Anisocytosis 2+
[2024-05-02 09:15] VITALS: BP 153/90; PULSE 80; RESP 16; TEMP 36.6; O2SAT 99
[2024-05-02 09:31] VITALS: O2SAT 95; O2SAT 99
[2024-05-02] MEDS: APIXABAN 5 MG TABLET PO (09:34)
[2024-05-02] MEDS: Varenicline 1 MG Tablet PO (09:34)
[2024-05-02] MEDS: Pantoprazole Sodium 20 MG Tablet PO (09:34)
[2024-05-02] MEDS: Labetalol 100 MG Tablet PO (09:34)
[2024-05-02] MEDS: buPROPion 75 MG Tablet PO (09:34)
[2024-05-02] MEDS: Furosemide 40 MG/4 ML Vial IV (09:46)
--- NOTE | 2024-05-02 10:25 | PCM.DC ---
Discharge Instructions Diet Discharge Diet: Low fat / Low cholesterol and 6 Cup Fluid Restriction DC O2, CPAP, BIPAP needs RN Home O2 Qualification: Home O2 Qualification: Is the patient on home oxygen No 05/02/24 09:31 Home O2 Qualification: AT REST 1- Pulse Ox at rest 99 05/02/24 09:31 Home O2 Qualification: WITH AMBULATION 1- Pulse Ox with ambulation 95 05/02/24 09:31 1- Oxygen Flow Rate with 0 05/02/24 09:31 ambulation Additional Home O2 Discharge instructions: No Dressing / Incision Discharge Activity: Return to Normal Activity Dressing / Incision Call your doctor if you observe: Fever of 101 or Higher, Shortness of breath, Dizziness, Fainting spells, Swelling in the ankles, Chest pain and Increased palpitations (irregular heartbeat) Follow Up Care Test Results: Test results from this visit will be discussed in further detail at your follow-up appointment, if applicable. Discharge Plan Admission Admit Date/Time: 04/30/24 12:57 Attending Provider: Judson Hairston Primary Care Provider: Tyra Magaña Instructions Patient Instructions: Cardiomyopathy Dc, ED Heart Failure, Congestive (CHF) Additional Instructions / Restrictions: Follow-up with your PCP in 3 to 5 days to monitor your electrolytes and your renal function secondary to your new medication Lasix. Discharge Orders/Prescriptions Prescriptions: New Eliquis 5 mg Tablet 5 mg PO BID 30 Days Qty: 60 0RF furosemide [Lasix] 40 mg tablet 40 mg PO DAILY Qty: 30 0RF Continued omeprazole 20 MG capsule 20 mg PO DAILY Patient Comments: STOMACH cyclobenzaprine 10 MG tablet 10 mg PO TID PRN (Reason: spasms) naltrexone 50 mg tablet 50 mg PO DAILY simvastatin 40 mg tablet 40 mg PO QHS tamsulosin 0.4 mg capsule 0.4 mg PO QHS levothyroxine 50 mcg tablet 50 mcg PO DAILY metformin 1,000 mg tablet 1,000 mg PO DAILY bupropion HCl 75 mg tablet 75 mg PO BID labetalol 100 mg tablet 100 mg PO BID sodium chloride 1,000 mg tablet,soluble 1,000 mg PO TID varenicline 1 mg tablet 1 mg PO BID albuterol sulfate 90 mcg/actuation HFA aerosol inhaler 2 puff inhalation Q4H PRN PRN (Reason: wheezing) Referrals / Follow Up: Tyra Magaña, ARTS THER[employer]IST [Primary Care Provider] - Within 1 Week Disposition Disposition (needs filled in before D/C Order can be placed): Home, Self Care
--- NOTE | 2024-05-02 10:54 | CASEMGMT ---
Patient has order for discharge. Patient is discharging on Eliquis. RN CM called [facility], copay is $0 through patient's insurance. RN CM in to discuss needs at discharge and updated regarding Eliquis copay. Patient denies needs or help at discharge. Patient had no further questions or concerns.
--- NOTE | 2024-05-02 13:45 | PCM.DC.SUM ---
Providers Date of Admission: 04/30/24 Primary Care Physician: CHARLY Monson Reason For Visit: SOB Diagnosis Discharge Diagnosis (1) CHF (congestive heart failure): Status: Acute Code(s): I50.9 - Heart failure, unspecified Medications at Discharge Home Medications omeprazole 20 mg capsule,delayed release 20 mg PO DAILY 04/30/13 cyclobenzaprine 10 mg tablet 10 mg PO TID PRN spasms 01/17/20 albuterol sulfate 90 mcg/actuation aerosol inhaler 2 puff inhalation Q4H PRN PRN wheezing 04/30/24 bupropion HCl 75 mg tablet 75 mg PO BID mood 04/30/24 labetalol 100 mg tablet 100 mg PO BID blood pressure 04/30/24 levothyroxine 50 mcg tablet 50 mcg PO DAILY disorder of thyroid gland 04/30/24 metformin 1,000 mg tablet 1,000 mg PO DAILY diabetes 04/30/24 naltrexone 50 mg tablet 50 mg PO DAILY 04/30/24 simvastatin 40 mg tablet 40 mg PO QHS cholesterol 04/30/24 sodium chloride 1,000 mg soluble tablet 1,000 mg PO TID supplement 04/30/24 tamsulosin 0.4 mg capsule 0.4 mg PO QHS urine flow 04/30/24 varenicline 1 mg tablet 1 mg PO BID quit smoking 04/30/24 apixaban 5 mg tablet (Eliquis) 5 mg PO BID 30 days #60 tabs 05/02/24 furosemide 40 mg tablet (Lasix) 40 mg PO DAILY #30 tabs 05/02/24 Hospital Course Operations None Procedures 2-D Echocardiogram Summary of Care Provided Minutes Spent on Discharge: 37 Hospital Course: Per HPI: ABDIRIZAK COLINDRES, is a 69 M who presents to the hospital with shortness of breath. He says it has been going on for couple weeks as he has been getting worse. He is also has lower extremity edema which is new. It is bilateral. He has been noticing difficulty with laying flat and increased dyspnea on exertion. He denies any chest pain or lightheadedness. He does have a history of stage IV lung cancer that he is undergoing chemotherapy for may believe that he will be starting immunotherapy in a couple weeks. He follows with [facility] oncology. Of note his hemoglobin is 8.3 which has started to drops in January, it does appear that he has had a workup at the [facility] as his MCV is elevated, his B12 folic acid. His retake count and his absolute retake count were both elevated, and his iron studies were normal. In the ER he had an amatory pulse ox of 86% on room air though he is satting normally at rest on room air. BNP was also normal which could be falsely low secondary to his morbid obesity. Hospital Course: 1. Dyspnea on exertion with hypoxia in setting of A-fib worsening an acute on chronic diastolic CHF/essential HTN/HLD?69-year-old male undergoing chemotherapy for stage IV lung cancer presented to the hospital with increasing shortness of breath at rest with increasing dyspnea on exertion. He did not require any oxygen while at rest but initially in the ER he was hypoxic with ambulation. He was significantly edematous so an echo was obtained which demonstrated an EF of 55% with no obvious signs of diastolic dysfunction though he had an episode of A-fib during his hospitalization so this may have contributed to his hypoxia and swelling. At this time I would likely describe him as having an acute on chronic diastolic CHF worsened by his A-fib. He was started on Eliquis 5 mg p.o. twice daily as well as Lasix. He did diurese well and on the day of discharge ambulated at 95% on room air. Will start him on p.o. Lasix 40 mg daily and continue with his labetalol for blood pressure and rate control. I discussed with him and his the plan for discharge today and he expressed understanding of the risk benefits of going home and would like to go home today. 2. Stage IV lung cancer, COPD, anemia of unknown etiology, type 2 diabetes, anxiety, depression, BPH are all chronic medical conditions which complicate his care. His home medications were continued where appropriate Physical Exam Narrative General: Alert, Oriented x3, Cooperative, No apparent distress HEENT: Atraumatic, PERRLA, EOMI, Normocephalic Oral: Moist Mucosa Neck: Supple, No JVD Lungs: Diminished, Normal air movement, No rhonchi, No wheeze, No rales Cardiovascular: Regular rate, Regular Rhythm, Normal S1, Normal S2, No murmurs Abdomen: Soft, Non Tender, Non-Distended, No Hepato-splenomegaly Extremities: Bilateral pitting edema, Capillary Refill Less than 3 Seconds Skin: No rashes, No breakdown Musculoskeletal: No Tenderness to Palpation of Joints or Extremities Neurological: No focal neurological deficits, Motor Exam 5/5 strength throughout, Sensory exam intact to light touch and pain Psych/Mental Status: Normal Affect, Appropriate Weight / BMI Weight Weight: 302 lb 11.115 oz Body Mass Index (BMI) 41.0 ABG / Lab / Microbiology Data 05/02/24 06:07 05/02/24 06:07 Laboratory: Laboratory Results - last 24 hr 05/01/24 16:51: POC Glucose 114 H 05/01/24 20:19: POC Glucose 129 H 05/02/24 06:07: WBC 7.6, RBC 2.68 L, Hgb 9.1 L, Hct 29.8 L, MCV 111.2 H, MCH 34.0 H, MCHC 30.5 L, RDW Std Deviation 83.6 H, RDW Coeff of Shireen 20.4 H, Plt Count 354, MPV 10.1, Immature Gran % (Auto) 0.800, Neut % (Auto) 63.5, Lymph % (Auto) 22.6, [place] % (Auto) 12.1 H, Eos % (Auto) 0.5, Baso % (Auto) 0.5, Absolute Neuts (auto) 4.8, Absolute Lymphs (auto) 1.71, Nucleated RBC % 0, Anisocytosis 2+, Sodium 135 L, Potassium 3.7, Chloride 101, Carbon Dioxide 27.0, Anion Gap 7, BUN 11, Creatinine 0.96, Estim Creat Clear Calc 105.71, Est GFR (MDRD) Af Amer 100, Est GFR (MDRD) Non-Af 83, BUN/Creatinine Ratio 11.5, Glucose 159 H, Calcium 9.1 05/02/24 06:53: POC Glucose 147 H Microbiology: Microbiology 05/01/24 14:23 Stool Stool Occult Blood (LENNOX) - Final D/C Instructions Discharge Diet: Low fat / Low cholesterol and 6 Cup Fluid Restriction Call your doctor if you observe: Fever of 101 or Higher, Shortness of breath, Dizziness, Fainting spells, Swelling in the ankles, Chest pain and Increased palpitations (irregular heartbeat) DC O2, CPAP, BIPAP Needs RN Home O2 Qualification: Home O2 Qualification: Is the patient on home oxygen No 05/02/24 09:31 Home O2 Qualification: AT REST 1- Pulse Ox at rest 99 05/02/24 09:31 Home O2 Qualification: WITH AMBULATION 1- Pulse Ox with ambulation 95 05/02/24 09:31 1- Oxygen Flow Rate with 0 05/02/24 09:31 ambulation Additional Home O2 Discharge instructions: No DC home with Oxygen: No Meaningful Use Info Meaningful Use Meaningful Use Diagnoses (Choose all that apply): None applicable Ischemic Stroke Statin Dosing Therapy Reference: STATIN DOSE THERAPY REFERENCE: * Patients > 75 years receive moderate or high dose statin therapy. * Patients 75 years or YOUNGER should receive HIGH intensity statin dose unless contraindicated. You will be required to document reason for non-treatment if statin daily dose does not meet guidelines. HIGH DOSE STATIN THERAPY DAILY Atorvastatin > than or = to 40 mg Rosuvastatin > than or = to 20 mg Amlodipine + Atorvastatin > than or = to 2.5/40 mg Ezetimibe + Simvastatin 10/80 mg Simvastatin 80mg Discharge Plan Admission Admit Date/Time: 04/30/24 12:57 Attending Provider: Judson Hairston Primary Care Provider: Tyra Magaña Instructions Patient Instructions: Cardiomyopathy Dc, ED Heart Failure, Congestive (CHF) Additional Instructions / Restrictions: Follow-up with your PCP in 3 to 5 days to monitor your electrolytes and your renal function secondary to your new medication Lasix. Discharge Orders/Prescriptions Prescriptions: New Eliquis 5 mg Tablet 5 mg PO BID 30 Days Qty: 60 0RF furosemide [Lasix] 40 mg tablet 40 mg PO DAILY Qty: 30 0RF Continued omeprazole 20 MG capsule 20 mg PO DAILY Patient Comments: STOMACH cyclobenzaprine 10 MG tablet 10 mg PO TID PRN (Reason: spasms) naltrexone 50 mg tablet 50 mg PO DAILY simvastatin 40 mg tablet 40 mg PO QHS tamsulosin 0.4 mg capsule 0.4 mg PO QHS levothyroxine 50 mcg tablet 50 mcg PO DAILY metformin 1,000 mg tablet 1,000 mg PO DAILY bupropion HCl 75 mg tablet 75 mg PO BID labetalol 100 mg tablet 100 mg PO BID sodium chloride 1,000 mg tablet,soluble 1,000 mg PO TID varenicline 1 mg tablet 1 mg PO BID albuterol sulfate 90 mcg/actuation HFA aerosol inhaler 2 puff inhalation Q4H PRN PRN (Reason: wheezing) Referrals / Follow Up: Tyra Magaña, M[employer]KER [Primary Care Provider] - Within 1 Week Disposition Disposition (needs filled in before D/C Order can be placed): Home, Self Care Charges/Coding Visit Charges Inpatient E&M: 06497 Disch Hosp >30min
== END 2024-05-02 10:28 | disposition home or self-care (01) ==
LOC: ED 12:54 → PCU 13:05
PROVIDERS: Admitting Provider Family Medicine; Emergency Provider Emergency Medicine; PCP Clinical Nurse Specialist Adult Health; Visit Provider Family Medicine
DX: I11.0 Hypertensive heart disease with heart failure (principal); C34.90 Malignant neoplasm of unspecified part of unspecified bronchus or lung; I50.33 Acute on chronic diastolic (congestive) heart failure; J44.9 Chronic obstructive pulmonary disease, unspecified; I48.91 Unspecified atrial fibrillation; E66.01 Morbid (severe) obesity due to excess calories; Z68.41 Body mass index [BMI] 40.0-44.9, adult; E11.9 Type 2 diabetes mellitus without complications; D64.9 Anemia, unspecified; Z79.84 Long term (current) use of oral hypoglycemic drugs; F41.9 Anxiety disorder, unspecified; Z87.891 Personal history of nicotine dependence; E78.5 Hyperlipidemia, unspecified; Z79.82 Long term (current) use of aspirin; Z79.899 Other long term (current) drug therapy; F32.A Depression, unspecified; N40.0 Benign prostatic hyperplasia without lower urinary tract symptoms
CPT/HCPCS: 36415; 71046; 80048; 82274; 82728; 82962; 83540; 83550; 83735; 83880; 84443; 84484; 85025; 85610; 85730; 93005; 93306; 94640; 96374; 96375; 96376; 97802; 99221; 99285; Q9957; A4216; C8929; G0378; J1940

== ENCOUNTER → 2024-08-02 | Outpatient (CLI) | payer BC, SELFPAY | END | disposition home or self-care (01) | PROVIDERS: PCP Clinical Nurse Specialist Adult Health; Visit Provider Nurse Practitioner Adult Health | DX: G47.33 Obstructive sleep apnea (adult) (pediatric) (principal); C34.01 Malignant neoplasm of right main bronchus; E66.01 Morbid (severe) obesity due to excess calories; Z78.9 Other specified health status | CPT/HCPCS: 95810 ==

== ENCOUNTER → 2025-01-03 | Outpatient (CLI) | payer BC, SELFPAY ==
--- OUTSIDE RECORDS SUMMARY | 2025-01-03 20:28 | XMS RPT_ITS | CCD ---
Author Organization [facility] CliniSy[facility]v Care Team Providers Care Knot Saw Operator Name Role Phone Casey Hernandez PA-C Primary Care Provider [phone] Suppan SEASONER HAND.KIMBERLY, Tyra A Primary Care Provi daysi Marty Saravia DO Unavailable Masci DO, Corazon A Unavailable Dogurwinder RN, Kayli Unavailable Unavailable Casey Hernandez PA-C Primary Care Provider [phone] Suppan SEASONER HAND.LAMINATION 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, Tyra A Primary Care Provi daysi Suppan SEASONER HAND.LAMINATION 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, Tyra A Primary Care Provi daysi Dr. Jay Beckett DO Emergency Provider Suppan SOLE TACKER, Tyra Primary Care Provider Yovanny RIZVI, Dr. Judson Hamlin Admit Provider Dr. Judson Hairston MD Attending Provider Dr. Christiano Jain MD Attending Provider Dr. Judson Hairston MD Other Provider Guillermo REYNAGA-CClemencia Attending Provider Clemencia Barr Referring Provider SUPPAN, TYRA A Primary Care Unavailable MASCI, CORAZON A Referring Unavailable MASCI, CORAZON A Referring Unavailable SUPPAN, TYRA A Primary Care Unavailable SUPPAN, TYRA A Primary Care Unavailable MASCI, CORAZON A Referring Unavailable SUPPAN, TYRA A Primary Care Unavailable MASCI, CORAZON A Referring Unavailable SUPPAN, TYRA A Primary Care Unavailable PROVIDER, UNKNOWN Attending Unavailable PROVIDER, UNKNOWN Admitting Unavailable Suppan, Tyra Primary Care Unavailable Judson Hairston F Consulting Unavailable Judson Hairston F Attending Unavailable Judson Hairston F Admitting Unavailable Guillermo, Clemencia Referring Unavailable Suppan, Tyra Primary Care Unavailable Guillermo SPRING TIER, Clemencia M Attending Unavailable Guillermo SPRING TIER, Clemencia M Referring Unavailable Suppan, Tyra Primary Care Unavailable Guillermo SPRING TIER, Clemencia M Attending Unavailable Suppan, Tyra Primary Care Unavailable Judson Hairston F Attending Unavailable Mamadou Hairstonolas F Admitting Unavailable Suppan, Tyra Primary Care Unavailable Christiano Jain Attending Unavailable SUPPAN, TYRA A Primary Care Unavailable MASCI, CORAZON Referring Unavailable SUPPAN, TYRA A Primary Care Unavailable MASCI, CORAZON Referring Unavailable SUPPAN, TYRA A Primary Care Unavailable KOFFI HUERTA Referring Unavailable SUPPAN, TYRA A Primary Care Unavailable HUERTAKOFFI ORTIZ Referring Unavailable SUPPAN, TYRA A Primary Care Unavailable SUPPAN, TYRA A Attending Unavailable SUPPAN, TYRA A Primary Care Unavailable SUPPAN, TYRA A Primary Care Unavailable MASCI, CORAZON Referring Unavailable JUVENTINO, ANGELIC Attending Unavailable SUPPAN, TYRA A Primary Care Unavailable FLORES, ANGELIC Referring Unavailable FLORES, ANGELIC Referring Unavailable SUPPAN, TYRA A Primary Care Unavailable SUPPAN, TYRA A Primary Care Unavailable MASCI, CORAZON Referring Unavailable SUPPAN, TYRA A Primary Care Unavailable MASCI, CORAZON Referring Unavailable FLORES, ANGELIC Referring Unavailable SUPPAN, TYRA A Primary Care Unavailable SUPPAN, TYRA A Referring Unavailable SUPPAN, TYRA A Primary Care Unavailable GUILLERMOCECIL SANDOVALCA Attending Unavailable MASCI, CORAZON Referring Unavailable SUPPAN, TYRA A Primary Care Unavailable MASCI, CORAZON Referring Unavailable SUPPAN, TYRA A Primary Care Unavailable MASCI, CORAZON Referring Unavailable SUPPAN, TYRA A Primary Care Unavailable MASCI, CORAZON Referring Unavailable SUPPAN, TYRA A Primary Care Unavailable MASCI, CORAZON Referring Unavailable SUPPAN, TYRA A Primary Care Unavailable SUPPAN, TYRA A Primary Care Unavailable FLORES, ANGELIC Referring Unavailable HUERTA, KOFFI Attending Unavailable SUPPAN, TYRA A Primary Care Unavailable FLORES, ANGELIC Referring Unavailable SUPPAN, TYRA A Primary Care Unavailable FLORES, ANGELIC Referring Unavailable FLORES, ANGELIC Attending Unavailable SUPPAN, TYRA A Primary Care Unavailable FLORES, ANGELIC Referring Unavailable SUPPAN, TYRA A Primary Care Unavailable MASCI, CORAZON Referring Unavailable SUPPAN, TYRA A Primary Care Unavailable FLORES, ANGELIC Referring Unavailable MASCI, CORAZON Attending Unavailable SUPPAN, TYRA A Primary Care Unavailable FLORES, ANGELIC Referring Unavailable SUPPAN, TYRA A Primary Care Unavailable SUPPAN, TYRA A Referring Unavailable MASCI, CORAZON Referring Unavailable SUPPAN, TYRA A Primary Care Unavailable MASCI, CORAZON Attending Unavailable FLORES, ANGELIC Referring Unavailable SUPPAN, TYRA A Primary Care Unavailable MASCI, CORAZON Referring Unavailable SUPPAN, TYRA A Primary Care Unavailable MASCI, CORAZON Referring Unavailable SUPPAN, TYRA A Primary Care Unavailable SUPPAN, TYRA A Primary Care Unavailable MASCI, CORAZON Referring Unavailable SUPPAN, TYRA A Primary Care Unavailable FLORES, ANGELIC Referring Unavailable SUPPAN, TYRA A Attending Unavailable SUPPAN, TYRA A Primary Care Unavailable FLORES, ANGELIC Referring Unavailable SUPPAN, TYRA A Primary Care Unavailable FLORES, ANGELIC Referring Unavailable SUPPAN, TYRA A Primary Care Unavailable MASCI, CORAZON Referring Unavailable MASCI, CORAZON Referring Unavailable SUPPAN, TYRA A Primary Care Unavailable FLORES, ANGELIC Referring Unavailable SUPPAN, TYRA A Primary Care Unavailable MASCI, CORAZON Referring Unavailable SUPPAN, TYRA A Primary Care Unavailable MASCI, CORAZON Referring Unavailable SUPPAN, TYRA A Primary Care Unavailable SUPPAN, TYRA A Primary Care Unavailable SUPPAN, TYRA A Attending Unavailable MASCI, CORAZON Referring Unavailable SUPPAN, TYRA A Primary Care Unavailable SUPPAN, TYRA A Primary Care Unavailable MASCI, CORAZON Referring Unavailable SUPPAN, TYRA A Primary Care Unavailable SUPPAN, TYRA A Primary Care Unavailable FLORES, ANGELIC Referring Unavailable SUPPAN, TYRA A Primary Care Unavailable MASCI, CORAZON Referring Unavailable SUPPAN, TYRA A Primary Care Unavailable FLORES, ANGELIC Referring Unavailable MASCI, CORAZON Attending Unavailable SUPPAN, TYRA A Primary Care Unavailable FLORES, ANGELIC Referring Unavailable SUPPAN, TYRA A Primary Care Unavailable FLORES, ANGELIC Referring Unavailable SUPPAN, TYRA A Primary Care Unavailable FLORES, ANGELIC Referring Unavailable SUPPAN, TYRA A Primary Care Unavailable MASCI, CORAZON Referring Unavailable FLORES, ANGELIC Attending Unavailable FLORES, ANGELIC Referring Unavailable SUPPAN, TYRA A Primary Care Unavailable SUPPAN, TYRA A Primary Care Unavailable MASCI, CORAZON Referring Unavailable SUPPAN, TYRA A Primary Care Unavailable FLORES, ANGELIC Attending Unavailable SUPPAN, TYRA A Primary Care Unavailable SUPPAN, TYRA A Primary Care Unavailable MASCI, CORAZON Referring Unavailable SUPPAN, TYRA A Primary Care Unavailable MASCI, CORAZON Referring Unavailable SUPPAN, TYRA A Primary Care Unavailable MASCI, CORAZON Referring Unavailable SUPPAN, TYRA A Primary Care Unavailable FLORES, ANGELIC Referring Unavailable SUPPAN, TYRA A Primary Care Unavailable SUPPAN, TYRA A Attending Unavailable SUPPAN, TYRA A Primary Care Unavailable MASCI, CORAZON Referring Unavailable MASCI, CORAZON Referring Unavailable SUPPAN, TYRA A Primary Care Unavailable MASCI, CORAZON Attending Unavailable FLORES, ANGELIC Referring Unavailable SUPPAN, TYRA A Primary Care Unavailable KOFFI HUERTA Attending Unavailable SUPPAN, TYRA A Primary Care Unavailable SUPPAN, TYRA A Primary Care Unavailable MASCI, CORAZON Referring Unavailable SUPPAN, TYRA A Primary Care Unavailable FLORES, ANGELIC Referring Unavailable SUPPAN, TYRA A Primary Care Unavailable SUPPAN, TYRA A Attending Unavailable SUPPAN, TYRA A Primary Care Unavailable MASCI, CORAZON Referring Unavailable SUPPAN, TYRA A Primary Care Unavailable SUPPAN, TYRA A Primary Care Unavailable FLORES, ANGELIC Referring Unavailable KOFFI HUERTA Attending Unavailable SUPPAN, TYRA A Primary Care Unavailable FLORES, ANGELIC Referring Unavailable MASCI, CORAZON Referring Unavailable SUPPAN, TYRA A Primary Care Unavailable MASCI, CORAZON Referring Unavailable SUPPAN, TYRA A Primary Care Unavailable MASCI, CORAZON Attending Unavailable SUPPAN, TYRA A Primary Care Unavailable MASCI, CORAZON Referring Unavailable SUPPAN, TYRA A Primary Care Unavailable SUPPAN, TYRA A Primary Care Unavailable MASCI, CORAZON Referring Unavailable MASCI, CORAZON Referring Unavailable TYRA MARTELL Primary Care Unavailable CORAZON RENTERIA Attending Unavailable ANGELIC FLORES Referring Unavailable TYRA MARTELL Primary Care Unavailable Allergies Allergy Classification Reported Allergen(s) Allergy Type Date of Onset Reaction(s) Facility (1 source) oxyCODONE Drug Allergy 04-30-2024 [facility] Repository Medications Current Medications Medication Drug Class(es) Dates Sig (Normalized) Sig (Original) [id number] 200 actuat albuterol 0.09 mg/actuat metered dose inhaler (20 sources) beta2-Adrenergic Agonist Start: 04-30-2024 Albuterol Sulfate 90 mcg/actuation HFA aerosol inhaler Active 2 NMA INHALATION EVERY 4 HOURS NEEDED as needed for wheezing April 30, 2024 1:00am Start: 12-12-2022 End: 02-21-2025 take 2 puff(s) by inhalation every four hours as needed for wheezing albuterol HFA (VENTOLIN HFA) 90 mcg/actuation inhaler Indications: Pulmonary emphysema, unspecified emphysema type (HCC) Inhale 2 Puffs as instructed every 4 hours as needed for wheezing/shortness of breath. 4 Each 3 02/22/2024 02/21/2025 Active Start: 12-23-2021 End: 08-22-2022 take 2 puff(s) by inhalation every four hours as needed for wheezing albuterol HFA (VENTOLIN HFA) 90 mcg/actuation inhaler Inhale 2 Puffs as instructed every 4 hours as needed for wheezing/shortness of breath. 1 Each 3 08/22/2022 Active Start: 09-27-2021 End: 11-02-2021 take 2 puff(s) by inhalation every four hours as needed for wheezing albuterol HFA (VENTOLIN HFA) 90 mcg/actuation inhaler Inhale 2 Puffs as instructed every 4 hours as needed for wheezing/shortness of breath. 1 Inhaler 1 11/02/2021 Active Comment on above: Inhale 2 Puffs as in structed every 4 hours as needed for wheezing/shortness of breath. amoxicillin 875 mg / clavulanate 125 mg oral tablet (4 sources) Penicillin-class Antibacterial Start: 02-29-20 End: 10-20-20 24 take 1 tablet by mouth twice daily amoxicillin-clavula joe potassium (AUGMENTIN) 875-125 mg per tablet Indications: Skin infection Take 1 tablet by mouth two times a day for 10 days. 20 tablet 02/29/2024 03/10/2024 Active apixaban 5 mg oral tablet (20 sources) Factor Xa Inhibitor Start: 05-02-20 24 End: 05-31-19 26 take 1 tablet by mouth twice daily ELIQUIS 5 mg tab(s) Indications: Paroxysmal atrial fibrillation (HCC) Take 1 tablet by mouth two times a day. 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 1 Each 02/22/2024 Active Blood Pressure Test Kit-Medium kit (20 sources) Start: 07-18-19 20 Blood Pressure Test Kit-Medium kit Indications: Hypertension, essential 1 Kit once daily. 1 Kit 07/18/2019 Active Start: 07-18-2019 Blood Pressure Test Kit-Medium kit Indications: Hypertension, essential 1 Kit once daily. 1 Kit 0 07/18/2019 Active Comment on above: 1 Kit once daily. buPROPion hydrochloride 75 mg oral tablet (20 sources) Aminoketone Start: 2 End: 6 take 1 tablet by mouth twice daily buPROPion (WELLBUTRIN) 75 mg tablet Indications: Current mild episode of major depressive disorder, unspecified whether recurrent Take 1 tablet by mouth two times a day. 180 tablet 3 06/06/2024 06/06/2025 Active Start: 07-19-2021 take 1 tablet by chavez th twice daily buPROPion (WELLBUTRIN) 75 mg tablet Take 1 tablet by mouth twice daily. 90 tablet 1 07/19/2021 Active Comment on above: Take 1 tablet by chavez th twice daily. Take 1 tablet by chavez th two times a day. CPAP (20 sources) Start: 02-08-2020 CPAP Indications: ROMIE (obstructive sleep apnea) Initiate Auto PAP @ 5-20 cm of water with humidification. Mask (per patient preference) optional chin strap (if indicated) , filters, tubing, humidifier and lifetime supplies. 1 Device 02/08/2020 Active Start: 02-08-2020 CPAP Indicatio ns: ROMIE (obstructive sleep apnea) Initiate Auto PAP @ 5-20 cm of water with humidification. Mask (per patient preference) optional chin strap (if indicated) , filters, tubing, humidifier and lifetime supplies. 1 Device 0 02/08/2020 Active Comment on above: Initiate Auto PAP @ 5-20 cm of water with humidification. Mask (per patient preference) optional chin strap (if indicated) , filters, tubing, humidifier and lifetime supplies. cyclobenzaprine hydrochloride 10 mg oral tablet (20 sources) Muscle Relaxant Start: 025 End: 025 take 1 tablet by mouth twice daily as needed for muscle spasms cyclobenzaprine (FLEXERIL) 10 mg tablet Indications: Degeneration of intervertebral disc of lumbar region, unspecified whether pain present Take 1 tablet by mouth two times a day as needed for muscle spasm. 60 tablet 5 10/15/2024 04/13/2025 Active Start: 09-24-2021 End: 10-06-2024 take 1 tablet by mouth three times daily as needed for muscle spasms cyclobenzaprine (FLEXERIL) 10 mg tablet Indications: Chronic midline low back pain without sciatica Take 1 tablet by mouth three times a day as needed for muscle spasm. 45 tablet 2 04/09/2024 05/09/2024 Discontinued (Clinical Decision) Start: 01-17-2020 End: 07-27-2021 take 1 tablet by mouth three times daily as needed for muscle spasms cyclobenzaprine (FLEXERIL) 10 mg tablet Indications: Chronic midline low back pain without sciatica Take 1 tablet by mouth three times daily as needed for muscle spasm. 15 tablet 5 07/27/2021 Active Comment on above: Take 1 tablet by chavez th three times daily as needed for muscle spasm. Take 1 tablet by chavez th three times a day as needed for muscle spasm. doxycycline monohydrate 100 mg oral capsule (13 sources) Tetracycline-cla ss Drug Start: 01-23-2024 End: 02-02-2024 take 1 capsule by mouth twice daily doxycycline monohydrate (MONODOX) 100 mg capsule Take 1 capsule by mouth two times a day for 10 days. 20 capsule 01/23/2024 02/02/2024 Active Start: 12-12-2023 End: 12-22-2023 take 1 tablet by mouth twice daily doxycycline (VIBRA-TABS) 100 mg tablet Indications: Cellulitis of skin Take 1 tablet by mouth two times a day for 10 days. 20 tablet 0 12/12/2023 12/22/2023 Active enteric contrast (will be provided with radiology test) (7 sources) Start: 09-09-2024 End: 09-10-2024 enteric contrast (will be provided with radiology test) Indications: Malignant neoplasm of unspecified part of unspecified bronchus or lung (HCC) For CT CHESTABD/PEL W IVCON Routine order Administer, As Directed One Time Only, via Oral, Rectal, both Oral and Rectal, Enteric Tube, Stoma or Indwelling Catheter, Enteric Contrast as designated per enteric contrast guidelines 1 each 09/09/2024 09/10/2024 Active Start: 06-17-2024 End: 07-15-2024 enteric contrast (will be pr ovided with radiology test) Indications: 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) , 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) , Metastatic cancer to bone (HCC) , 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) For CT ABD/PEL W IVCON Routine order Administer, As Directed One Time Only, via Oral, Rectal, both Oral and Rectal, Enteric Tube, Stoma or Indwelling Catheter, Enteric Contrast as designated per enteric contrast guidelines 1 Each 06/17/2024 07/15/2024 Discontinued Start: 06-17-[address] (will be provided with radiology test) Indications: 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) , 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) , Metastatic cancer to bone (HCC) , 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) For CT ABD/PEL W IVCON Routine order Administer, As Directed One Time Only, via Oral, Rectal, both Oral and Rectal, Enteric Tube, Stoma or Indwelling Catheter, Enteric Contrast as designated per enteric contrast guidelines 1 Each 06/17/2024 Active Start: 03-28-2024 End: 03-29-2024 enteric contrast (will be pr ovided with radiology test) Indications: Malignant neoplasm of unspecified part of unspecified bronchus or lung (HCC) For CT CHESTABD/PEL W IVCON Routine order Administer, As Directed One Time Only, via Oral, Rectal, both Oral and Rectal, Enteric Tube, Stoma or Indwelling Catheter, Enteric Contrast as designated per enteric contrast guidelines 1 Each 03/28/2024 03/29/2024 Active Start: 02-16-2024 End: 02-17-2024 enteric contrast (will be pr ovided with radiology test) Indications: 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) , 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) , Metastatic cancer to bone (HCC) , 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 04/09/2024 Active Start: 04-09-2024 erythromycin ( ROMYCIN) 5 mg/gram (0.5 %) ophthalmic ointment APPLY A SMALL AMOUNT INTO BOTH EYES EVERY NIGHT AT BEDTIME 04/09/2024 Active furosemide 40 mg oral tablet (20 sources) Loop Diuretic Start: 05-02-2024 End: 05-31-2025 take 1 tablet by mouth once daily furosemide (LASIX) 40 mg tablet Indications: Generalized edema Take 1 tablet by mouth once daily. 90 tablet 3 05/31/2024 05/31/2025 Active iv contrast (will be provided with radiology test) (20 sources) Start: 09-09-2024 End: 09-10-2024 iv contrast (will be provided with radiology test) Indications: Malignant neoplasm of unspecified part of unspecified bronchus or lung (HCC) CT Chest ABD/PEL-Inject, intravenously, once for 1 dose.No IV access, insert saline lock prior to the beginning of sedation, infusion, injection of imaging exam. Discontinue saline lock post exam. If Pt. has a central line or IVAD, may access for administration according to line specific nursing protocol. Once exam is complete flush line and de-access according to line specific nursing protocol in the CT contrast administration guidelines link. 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 Discontinue saline lock post exam. If Pt. has a central line or IVAD, may access for administration according to line specific nursing protocol. Once exam is complete flush line and de-access according to line specific nursing protocol in the CT contrast administration guidelines link. 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 Discontinue saline lock post exam. If Pt. has a central line or IVAD, may access for administration according to line specific nursing protocol. Once exam is complete flush line and de-access according to line specific nursing protocol in the CT contrast administration guidelines link. 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 Discontinue saline lock post exam. If Pt. has a central line or IVAD, may access for administration according to line specific nursing protocol. Once exam is complete flush line and de-access according to line specific nursing protocol in the CT contrast administration guidelines link. 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 Discontinue saline lock post exam. If Pt. has a central line or IVAD, may access for administration according to line specific nursing protocol. Once exam is complete flush line and de-access according to line specific nursing protocol in the CT contrast administration guidelines link. 1 Each 06/17/2024 Active Start: 03-28-2024 End: 03-29-2024 iv contrast (will be provide d with radiology test) Indications: Malignant neoplasm of unspecified part of unspecified bronchus or lung (HCC) CT Chest ABD/PEL-Inject, intravenously, once for 1 dose.No IV access, insert saline lock prior to the beginning of sedation, infusion, injection of imaging exam. Discontinue saline lock post exam. If Pt. has a central line or IVAD, may access for administration according to line specific nursing protocol. Once exam is complete flush line and de-access according to line specific nursing protocol in the CT contrast administration guidelines link. 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 Discontinue saline lock post exam. If Pt. has a central line or IVAD, may access for administration according to line specific nursing protocol. Once exam is complete flush line and de-access according to line specific nursing protocol in the CT contrast administration guidelines link. 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 If Pt. 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 If Pt. has a central line or IVAD, may access for administration according to line specific nursing protocol.Once exam is complete flush line and de-access according to line specific nursing protocol in the MR contrast administration guidelines link 1 Each 01/12/2024 01/13/2024 Active Start: 10-30-2023 End: 11-29-2023 iv contrast (will be provide d with radiology test) Indications: Lesion of liver MRI Liver Inject, intravenously, once for 1 dose. No IV access, insert saline lock prior to the beginning of sedation, infusion, injection of imaging exam. Discontinue saline lock post exam. If Pt. has a central line or IVAD, may access for administration according to line specific nursing protocol. Once exam is complete flush line and de-access according to line specific nursing protocol in the MR contrast administration guidelines link. 1 Each 0 10/30/2023 11/29/2023 Active ketoconazole 10 mg/ml medicated shampoo (7 sources) Azole Antifungal Start: 12-12-2023 End: 01-11-2024 Ketoconazole 1 % sham Indications: Cellulitis of skin Apply to affected area every other day. 200 mL 12/12/2023 01/11/2024 Active labetalol hydrochloride 100 mg oral tablet (20 sources) beta-Adrenergic Heena Start: 01-25-2024 End: 11-12-2025 take 1 tablet by mouth twice daily labetalol (TRANDATE) 100 mg tablet Indications: Hypertension, essential Take 1 tablet by mouth two times a day. 180 tablet 3 11/12/2024 11/12/2025 Active Start: 03-31-2023 End: 01-25-2024 take 1 tablet by mouth twice daily labetalol (TRANDATE) 200 mg tablet Take 1 tablet by mouth two times a day. 180 tablet 1 03/31/2023 08/29/2023 Discontinued Start: 10-04-2021 End: 04-19-2022 take 1 tablet by mouth twice daily labetalol (TRANDATE) 200 mg tablet Take 1 tablet by mouth twice daily. 180 tablet 1 04/19/2022 Active Start: 09-24-2021 End: 02-01-2022 take 1.5 tablets by mouth twice daily labetalol (TRANDATE) 100 mg tablet Indications: Hypertension, essential Take 1.5 tablets by mouth twice daily. 135 tablet 3 09/24/2021 02/01/2022 Discontinued (Dosage adjustment) Start: 06-11-2021 take 1 tablet by chavez twice daily labetalol (TRANDATE) 200 mg tablet Take 1 tablet by mouth twice daily. 180 tablet 1 06/11/2021 Active Start: 01-07-2021 take 1.5 tablets by mouth twice daily labetalol (TRANDATE) 100 mg tablet Indications: Hypertension, essential Take 1.5 tablets by mouth twice daily. 135 tablet 3 01/07/2021 Active Start: 09-03-2020 End: 09-04-2020 take 1.5 tablets by mouth twice daily labetalol (TRANDATE) 100 mg tablet Indications: Hypertension, essential Take 1.5 tablets by mouth twice daily. 90 tablet 3 09/03/2020 09/04/2020 Discontinued Comment on above: Take 1.5 tablets by mouth twice daily. Take 1 tablet by chavez th twice daily. Take 1 tablet by chavez th two times a day. levothyroxine sodium 0.05 mg oral tablet (20 sources) l-Thyroxine Start: 04-01-20 End: 11-07-19 take 1 tablet by mouth once daily for thyroid dysfunction levothyroxine (LEVOXYL) 50 mcg tablet Indications: Acquired hypothyroidism Take 1 tablet by mouth once daily. Take on empty stomach. For Thyroid 90 tablet 3 08/08/2024 Active Start: 03-12-2024 End: 06-10-2024 take 1 tablet by mouth once daily for thyroid dysfunction levothyroxine (LEVOXYL) 25 mcg tablet Indications: Acquired hypothyroidism Take 1 tablet by mouth once daily. Take on empty stomach. For Thyroid 90 tablet 03/12/2024 04/01/2024 Discontinued loperamide hydrochloride 2 mg oral capsule (20 sources) Opioid Agonist Start: 10-15-2024 End: 11-14-2024 take 1 capsule by mouth every six hours as needed for diarrhea and diarrhea loperamide (IMODIUM) 2 mg cap(s) Indications: Diarrhea, unspecified type Take 1 capsule by mouth four times a day as needed for diarrhea. 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 about [address] scan. 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 about 1 hour prior to PET scan. 1 tablet 10/23/2024 10/23/2024 magnesium oxide 500 mg oral tablet (20 sources) take 1 tablet by chavez th twice daily Magnesium Oxide 500 mg magnesium tab Take 1 tablet by mouth two times a day. Active take 1 tablet by mouth once juan y Magnesium Oxide 500 mg magnesium tab Take 1 tablet by mouth once daily. Active 24 hr metFORMIN hydrochloride 500 mg extended release oral tablet (20 sources) Biguanide Start: 10-15-2024 End: 10-15-2025 take 2 tablets by mouth once daily at breakfast metFORMIN ER (GLUCOPHAGE XR) 500 mg 24 hr tablet Indications: Prediabetes Take 2 tablets by mouth daily with breakfast. 180 tablet 3 10/15/2024 10/15/2025 Active Start: 09-24-2021 End: 10-15-2024 take 1 tablet by mouth once daily at breakfast metFORMIN (GLUCOPHAGE) 1,000 mg tablet Indications: Prediabetes Take 1 tablet by mouth daily with breakfast. 90 tablet 3 05/31/2024 10/15/2024 Discontinued (Clinical Decision) Start: 03-05-2021 End: 08-30-2021 take 1 tablet by mouth once daily at breakfast metFORMIN (GLUCOPHAGE) 1,000 mg tablet Indications: Prediabetes Take 1 tablet by mouth daily with breakfast. 90 tablet 1 08/30/2021 Active Comment on above: Take 1 tablet by chavez th daily with breakfast. naltrexone hydrochloride 50 mg oral tablet (20 sources) Opioid Antagonist Start: 3 End: take 1 tablet by mouth once daily naltrexone 50 mg tablet Take 1 tablet by mouth once daily. 90 tablet 1 10/28/2024 Active Comment on above: Take 1 tablet by chavez th every afternoon. Take 1 tablet by chavez th once daily. omeprazole 20 mg delayed release oral capsule (20 sources) Proton Pump Inhibitor Start: 3 take 1 capsule by mouth once daily Omeprazole 20 MG capsule Active 20 mg PO DAILY April 30, 2013 1:00am End: 05-09-2024 take 1 tablet by mouth once daily Omeprazole Magnesium 20 mg tablet Take 20 mg by mouth once daily. 05/09/2024 Discontinued (Course of therapy completed) Comment on above: Take 20 mg by mouth once daily. 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 30 tablet 2 01/17/2024 Active simvastatin 40 mg oral tablet (20 sources) HMG-CoA Reductase Inhibitor Start: End: 025 take 1 tablet by mouth once daily at bedtime simvastatin (ZOCOR) 40 mg tablet Indications: Hyperlipidemia, mixed TAKE 1 TABLET BY MOUTH EVERYDAY AT BEDTIME 90 tablet 3 08/14/2024 Active Start: 09-29-2023 End: 09-29-2023 take 2 tablets by mouth once daily at bedtime simvastatin (ZOCOR) 20 mg tablet Indications: Hyperlipidemia, mixed Take 2 tablets by mouth daily at bedtime. 90 tablet 3 09/29/2023 09/29/2023 Discontinued (Adjust Sig - Block E-Cancel) Start: 04-30-2013 End: 04-30-2024 take 1 tablet by mouth once daily at bedtime simvastatin (ZOCOR) 20 mg tablet Indications: Hyperlipidemia, mixed Take 1 tablet by mouth daily at bedtime. 90 tablet 3 09/22/2022 08/29/2023 Discontinued Comment on above: Take 1 tablet by chavez th daily at bedtime. tamsulosin hydrochloride 0.4 mg oral capsule (20 sources) alpha-Adrenergic Heena Start: 4 End: 6 take 1 capsule by mouth once daily at bedtime tamsulosin (FLOMAX) 0.4 mg Indications: Benign prostatic hyperplasia with urinary frequency Take 1 capsule by mouth daily at bedtime. 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 28 tablet 02/02/2024 02/09/2024 Active varenicline 1 mg oral tablet (20 sources) Partial Cholinergic Nicotinic Agonist Start: End: take 1 tablet by mouth twice daily varenicline (CHANTIX) 1 mg tablet Indications: Tobacco abuse Take 1 tablet by mouth two times a day. 60 tablet 11 12/12/2023 Active Start: 08-29-2023 End: 01-12-2024 take 0.5 tablet by mouth once daily, then take 0.5 tablet by mouth twice daily, then take 1 tablet by mouth twice daily varenicline (CHANTIX) 1 mg tablet Indications: Tobacco abuse Take 0.5 tablets by mouth once daily for 3 days, THEN 0.5 tablets two times a day for 4 days, THEN 1 tablet two times a day for 23 days. 52 tablet 08/29/2023 01/12/2024 Discontinued Comment on above: Take 0.5 tablets by mouth once daily for 3 days, THEN 0.5 tablets two times a day for 4 days, THEN 1 tablet two times a day for 23 days. Take 1 tablet by chavez th two times a day. Patient should start on September 28, 2023. zaleplon 10 mg oral capsule (1 source) gamma-Aminobutyric Acid A Receptor Agonist Start: 11-07-2024 End: 11-08-2024 take 1 capsule by mouth once daily at bedtime zaleplon (SONATA) 10 mg capsule Indications: ROMIE (obstructive sleep apnea) , Intolerance of continuous positive airway pressure (CPAP) ventilation Take 1 capsule by mouth daily at bedtime for 1 day. Take at sleep lab. 1 capsule 11/07/2024 11/08/2024 Active Completed/Discontinued Medications Medication Drug Class(es) Dates Sig (Normalized) Sig (Original) acetaminophen 325 mg / HYDROcodone bitartrate 5 mg oral tablet (1 source) Opioid Agonist Start: 05-03-2020 End: 05-06-2020 Hydrocodone-Aceta minophen 1 TABLET tablet Discontinued 1 {tbl} PO EVERY 6 HOURS NEEDED as needed for Pain 02 21May 03, 2020 May 05, 2020 1:00am May 06, 2020 1:02am acetaminophen 325 mg / oxyCODONE hydrochloride 5 mg oral tablet (1 source) Opioid Agonist Start: 04-30-2013 End: 05-08-2013 Oxycodone-Acetami nophen 1 TABLET tablet Discontinued 1 {tbl} PO EVERY 6 HOURS NEEDED as needed for Mild/Moderate Pain April 30, 2013 1:00am May 08, 2013 1:13pm 120 actuat albuterol 0.1 mg/actuat / ipratropium bromide 0.02 mg/actuat inhalation spray (2 sources) Anticholinergic, beta2-Adrenergic Agonist Start: 02-01-2022 End: 02-07-2022 take 20-100 ug by inhalation four times daily ipratropium 20 mcg-albuterol 100 mcg (COMBIVENT RESPIMAT) 20-100 mcg/actuation inhaler Indications: SHAH (dyspnea on exertion) Inhale 2 Puffs as instructed four times daily. 1 Each 5 02/01/2022 02/07/2022 Discontinued Comment on above: Inhale 2 Puffs as in structed four times daily. amLODIPine 5 mg oral tablet (20 sources) Dihydropyridine Calcium Channel Heena Start: 09-24-2021 End: 02-29-2024 take 1 tablet by mouth once daily amLODIPine (NORVASC) 5 mg tablet Indications: Hypertension, essential Take 1 tablet by mouth once daily. 90 tablet 1 04/12/2023 10/10/2023 Discontinued Start: 04-12-2021 take 1 tablet by chavez th once daily amLODIPine (NORVASC) 5 mg tablet Indications: Hypertension, essential Take 1 tablet by mouth once daily. 90 tablet 1 04/12/2021 Active Start: 01-17-2020 End: 04-30-2024 take 1 tablet by mouth once daily amLODIPine (NORVASC) 5 mg tablet Indications: Hypertension, essential Take 1 tablet by mouth once daily. 90 tablet 1 04/29/2020 10/27/2020 Discontinued Comment on above: Take 1 tablet by chavez th once daily. aspirin 81 mg oral tablet (20 sources) Platelet Aggregation Inhibitor, Nonsteroidal Anti-inflammatory Drug Start: End: take 1 tablet by mouth once daily at mealtime Aspirin 81 mg tab Take 1 tablet by mouth once daily. Take with food. 30 tablet 11 07/10/2013 09/24/2021 Discontinued Start: 05-08-2013 End: 04-30-2024 take 1 tablet by mouth twice daily Aspirin 325 MG tablet Discontinued 325 mg PO TWICE A DAY 60 May 08, 2013 1:00am April 30, 2024 3:29pm End: 05-09-2024 take 1 tablet by mouth once daily aspirin, enteric coated (ASPIRIN, ENTERIC COATED) 81 mg EC tablet Take 81 mg by mouth once daily. 05/09/2024 Discontinued (Discontinued by another Health Care Provider) Comment on above: Take 1 tablet by chavez once daily. Take with food. atezolizumab 1,200 mg in NaCl 0.9% 130 mL (TECENTRSocial Moov) (4 sources) Start: 04-01-2024 End: 04-01-2024 1,200 mg, INTRAVENOUS, Administer over 30 Minutes, ONCE, 1 dose, On Mon04/01/24 at 1030, exp 0830 04/02/24 (refrigerated) Do Not Shake Start: 03-11-2024 End: 03-11-2024 1,200 mg, INTRAVENOUS, Admin ister over 30 Minutes, ONCE, 1 dose, On Mon03/11/24 at 1100, Expires in 6 hours at room temperature and 24 hours Refrigerated. EXP:03/21/24 1030 (fridge) Do Not Shake Start: 02-19-2024 End: 02-19-2024 1,200 mg, INTRAVENOUS, Admin ister over 30 Minutes, ONCE, 1 dose, On Mon02/19/24 at 1030, Expires in 6 hours at room temperature and 24 hours Refrigerated. Exp 02/20/24 10:01 AM (refrigerated) Do Not Shake Start: 01-29-2024 End: 01-29-2024 1,200 mg, INTRAVENOUS, Admin ister over 60 Minutes, ONCE, 1 dose, On Mon01/29/24 at 1100, Approx Total Volume - Expires: 01/29/24 @ 1635 Do Not Shake atezolizumab 1,680 mg in NaC l 0.9% 138 mL (TECENTRSocial Moov) (10 sources) Start: 12-30-2024 End: 12-30-2024 1,680 mg, INTRAVENOUS, Administer over 30 Minutes, ONCE, 1 dose, On Mon12/30/24 at 1200, Approx Total Volume - exp 1630 12/30/24 (room temp) Do Not Shake Start: 12-03-2024 End: 12-03-2024 1,680 mg, INTRAVENOUS, Admin ister over 30 Minutes, ONCE, 1 dose, On Mon12/03/24 at 1200, Approx Total Volume - exp 1200 12/04/24 (room temp) Do Not Shake Start: 11-04-2024 End: 11-04-2024 1,680 mg, INTRAVENOUS, Admin ister over 30 Minutes, ONCE, 1 dose, On Mon11/04/24 at 1000, Approx Total Volume - Expires: 11/04/24 @ 1610 Do Not Shake Start: 10-07-2024 End: 10-07-2024 1,680 mg, INTRAVENOUS, Admin ister over 30 Minutes, ONCE, 1 dose, On Mon10/07/24 at 1000, exp 1600 10/07/24 (room temp) Do Not Shake Start: 09-09-2024 End: 09-09-2024 1,680 mg, INTRAVENOUS, Admin ister over 30 Minutes, ONCE, 1 dose, On Mon09/09/24 at 1100, exp 1700 09/09/24 (room temp) Do Not Shake Start: 08-12-2024 End: 08-12-2024 1,680 mg, INTRAVENOUS, Admin ister over 30 Minutes, ONCE, 1 dose, On Mon08/12/24 at 1000, Approx Total Volume - Expires: 08/12/24 @ 1545 Do Not Shake Start: 07-15-2024 End: 07-15-2024 1,680 mg, INTRAVENOUS, Admin ister over 30 Minutes, ONCE, 1 dose, On Mon07/15/24 at 1000, exp 0900 07/16/24 (refrigerated) Do Not Shake Start: 06-17-2024 End: 06-17-2024 1,680 mg, INTRAVENOUS, Admin ister over 30 Minutes, ONCE, 1 dose, On 06/17/24 at 1000, exp 1600 06/07/24 (room temp) Do Not Shake Start: 05-20-2024 End: 05-20-2024 1,680 mg, INTRAVENOUS, Admin ister over 30 Minutes, ONCE, 1 dose, On 05/20/24 at 1100, Approx Total Volume - Expires: 05/20/24 @ 1640 Do Not Shake Start: 04-22-2024 End: 04-22-2024 1,680 mg, INTRAVENOUS, Admin ister over 30 Minutes, ONCE, 1 dose, On Mon04/22/24 at 1030, Approx Total Volume - Expires: 04/22/24 @ 1615 Do Not Shake breath-actuated 120 actuat beclomethasone dipropionate 0.08 mg/actuat metered dose inhaler (20 sources) Corticosteroid Start: 09-13-2022 End: 01-12-2024 take 2 puff(s) by inhalation twice daily beclomethasone (QVAR REDIHALER) 80 mcg/actuation inhaler Inhale 2 Puffs as instructed twice daily. 1 Each 5 09/13/2022 01/12/2024 Discontinued Comment on above: Inhale 2 Puffs as in structed twice daily. CARBOplatin 750 mg in NaCl 0.9% 350 mL (PARAPLATIN) (4 sources) Start: 04-01-2024 End: 04-01-2024 750 mg (Target AUC = 5), INTRAVENOUS, Administer over 30 Minutes, ONCE, 1 dose, On Mon04/01/24 at 1100, exp 0830 04/04/24 (refrigerated) Hazardous Chemotherapy Drug: Use appropriate PPE. Antineoplastic Irritant. Start: 03-11-2024 End: 03-11-2024 750 mg (Target AUC = 5), INT RAVENOUS, Administer over 30 Minutes, ONCE, 1 dose, On Mon03/11/24 at 1130, EXP 03/12/24 1030 (room temp) Hazardous Chemotherapy Drug: Use appropriate PPE. Antineoplastic Irritant. Start: 02-19-2024 End: 02-19-2024 750 mg (Target AUC = 5), INT RAVENOUS, Administer over 30 Minutes, ONCE, 1 dose, On Mon02/19/24 at 1100, Exp 02/22/24@1000 (refrigerated) Hazardous Chemotherapy Drug: Use appropriate PPE. Antineoplastic Irritant. Start: 01-29-2024 End: 01-29-2024 750 mg (Target AUC = 5), INT RAVENOUS, Administer over 30 Minutes, ONCE, 1 dose, On Mon01/29/24 at 1200, Approx Total Volume - Expires: 01/30/24 @ 1035 Hazardous Chemotherapy Drug: Use appropriate PPE. Antineoplastic Irritant. 1 ml dexamethasone phosphate 10 mg/ml injection (2 sources) Corticosteroid Start: 04-01-2024 End: 04-01-2024 10 mg, INTRAVENOUS, ONCE, 1 dose, On Mon04/01/24 at 1000, Administer over 5 minutes. Start: 03-11-2024 End: 03-11-2024 10 mg, INTRAVENOUS, ONCE, 1 dose, On Mon03/11/24 at 1030, Administer over 5 minutes. dexAMETHasone 10 mg in NaCl 0.9% 50 mL (DECADRON) (2 sources) Start: 02-19-2024 End: 02-19-2024 10 mg, INTRAVENOUS, ONCE, 1 dose, On Mon02/19/24 at 1000, Refrigerate. Start: 01-29-2024 End: 01-29-2024 10 mg, INTRAVENOUS, Administ er over 15 Minutes, ONCE, 1 dose, On Mon01/29/24 at 1030, Refrigerate. etoposide 246 mg in NaCl 0.9 % 1,062.3 mL (11 sources) Start: 04-02-2024 End: 04-02-2024 246 mg (100 mg/m2 2.46 m2 Treatment Plan BSA from Recorded weight), INTRAVENOUS, Administer over 1 Hours, ONCE, 1 dose, On Mon04/02/24 at 1330, exp 2000 04/02/24 (room temp) Hazardous Chemotherapy Drug: Use appropriate PPE. Protect from Light. Administer with non-DEHP 0.2 micron filter and tubing. Start: 04-01-2024 End: 04-01-2024 246 mg (100 mg/m2 2.46 m2 Tr eatment Plan BSA from Recorded weight), INTRAVENOUS, Administer over 1 Hours, ONCE, 1 dose, On Mon04/01/24 at 1130, exp 1600 04/02/24 (room temp) Hazardous Chemotherapy Drug: Use appropriate PPE. Protect from Light. Administer with non-DEHP 0.2 micron filter and tubing. Start: 03-13-2024 End: 03-13-2024 246 mg (100 mg/m2 2.46 m2 Tr eatment Plan BSA from Recorded weight), INTRAVENOUS, Administer over 1 Hours, ONCE, 1 dose, On Mon03/13/24 at 0900, exp 1800 03/13/24 (room temp) Hazardous Chemotherapy Drug: Use appropriate PPE. Protect from Light. Administer with non-DEHP 0.2 micron filter and tubing. Start: 03-12-2024 End: 03-12-2024 246 mg (100 mg/m2 2.46 m2 Tr eatment Plan BSA from Recorded weight), INTRAVENOUS, Administer over 1 Hours, ONCE, 1 dose, On Mon03/12/24 at 0930, EXP:03/12/24 2100 (room temp) Hazardous Chemotherapy Drug: Use appropriate PPE. Protect from Light. Administer with non-DEHP 0.2 micron filter and tubing. Start: 03-11-2024 End: 03-11-2024 246 mg (100 mg/m2 2.46 m2 Tr eatment Plan BSA from Recorded weight), INTRAVENOUS, Administer over 1 Hours, ONCE, 1 dose, On Mon03/11/24 at 1200, EXP:03/12/24 1630 (room temp) Hazardous Chemotherapy Drug: Use appropriate PPE. Protect from Light. Administer with non-DEHP 0.2 micron filter and tubing. Start: 02-21-2024 End: 02-21-2024 246 mg (100 mg/m2 2.46 m2 Tr eatment Plan BSA from Recorded weight), INTRAVENOUS, Administer over 1 Hours, ONCE, 1 dose, On Mon02/21/24 at 1000, exp 1600 02/21/24 (room temp) Hazardous Chemotherapy Drug: Use appropriate PPE. Protect from Light. Administer with non-DEHP 0.2 micron filter and tubing. Start: 02-20-2024 End: 02-20-2024 246 mg (100 mg/m2 2.46 m2 Tr eatment Plan BSA from Recorded weight), INTRAVENOUS, Administer over 1 Hours, ONCE, 1 dose, On Mon02/20/24 at 0830, Exp 02/20/24@1700 (room temp) Hazardous Chemotherapy Drug: Use appropriate PPE. Protect from Light. Administer with non-DEHP 0.2 micron filter and tubing. Start: 02-19-2024 End: 02-19-2024 246 mg (100 mg/m2 2.46 m2 Tr eatment Plan BSA from Recorded weight), INTRAVENOUS, Administer over 1 Hours, ONCE, 1 dose, On Mon02/19/24 at 1130, Exp 02/20/24@1600 (room temp) Hazardous Chemotherapy Drug: Use appropriate PPE. Protect from Light. Administer with non-DEHP 0.2 micron filter and tubing. Start: 01-31-2024 End: 01-31-2024 246 mg (100 mg/m2 2.46 m2 Tr eatment Plan BSA from Recorded weight), INTRAVENOUS, Administer over 1 Hours, ONCE, 1 dose, On Mon01/31/24 at 0900, Approx Total Volume: 1062 mL - Expires: 01/31/24 @ 1800 Hazardous Chemotherapy Drug: Use appropriate PPE. Protect from Light. Administer with non-DEHP 0.2 micron filter and tubing. Start: 01-30-2024 End: 01-30-2024 246 mg (100 mg/m2 2.46 m2 Tr eatment Plan BSA from Recorded weight), INTRAVENOUS, Administer over 1 Hours, ONCE, 1 dose, On Mon01/30/24 at 1400, Approx Total Volume - Expires: 01/30/24 @ 1945 Hazardous Chemotherapy Drug: Use appropriate PPE. Protect from Light. Administer with non-DEHP 0.2 micron filter and tubing. Start: 01-29-2024 End: 01-29-2024 246 mg (100 mg/m2 2.46 m2 Tr eatment Plan BSA from Recorded weight), INTRAVENOUS, Administer over 1 Hours, ONCE, 1 dose, On Mon01/29/24 at 1230, Approx Total Volume - Expires: 01/30/24 @ 1630 Hazardous Chemotherapy Drug: Use appropriate PPE. Protect from Light. Administer with non-DEHP 0.2 micron filter and tubing. etoposide 246 mg in NaCl 0.9% 552.3 mL (1 source) Start: 04-03-2024 End: 04-03-2024 246 mg (100 mg/m2 2.46 m2 Treatment Plan BSA from Recorded weight), INTRAVENOUS, Administer over 1 Hours, ONCE, 1 dose, On Mon04/03/24 at 1330, exp 1800 04/03/24 (room temp) Hazardous Chemotherapy Drug: Use appropriate PPE. Protect from Light. Administer with non-DEHP 0.2 micron filter and tubing. 60 actuat formoterol fumarate 0.005 mg/actuat / mometasone furoate 0.2 mg/actuat metered dose inhaler (20 sources) Corticosteroid , beta2-Adrenerg ic Agonist Start: 02-11-2022 End: 09-29-2023 take 1 puff(s) by inhalation twice daily mometasone-formoter ol (DULERA) 200-5 mcg/actuation inhaler Inhale 1 Puff as instructed twice daily. 1 Each 2 10/25/2022 09/29/2023 Discontinued Start: 02-11-2022 End: 02-11-2022 take 2 puff(s) by inhalation twice daily mometasone-formoterol (DULERA) 100-5 mcg/actuation inhaler Inhale 2 Puffs as instructed twice daily. 1 Each 5 02/11/2022 02/11/2022 Discontinued Start: 02-09-2022 End: 02-11-2022 take 2 puff(s) by inhalation twice daily mometasone-formoterol (DULERA) 50-5 mcg/actuation HFA aerosol inhaler Inhale 2 Puffs as instructed twice daily. 1 Each 5 02/09/2022 02/11/2022 Discontinued Comment on above: Inhale 2 Puffs as in structed twice daily. Inhale 1 Puff as ins tructed twice daily. fosaprepitant 150 mg injection (1 source) Start: 04-01-2024 End: 04-01-2024 150 mg, INTRAVENOUS, Administer over 30 Minutes, ONCE, 1 dose, On Mon04/01/24 at 1000, Refrigerate fosaprepitant 150 mg in NaCl 0.9% 250 mL (EMEND) (3 sources) Start: 03-11-2024 End: 03-11-2024 150 mg, INTRAVENOUS, Administer over 30 Minutes, ONCE, 1 dose, On Mon03/11/24 at 1030, Approximate Total Volume = 280 mL Refrigerate Start: 02-19-2024 End: 02-19-2024 150 mg, INTRAVENOUS, Adminis ter over 30 Minutes, ONCE, 1 dose, On Mon02/19/24 at 1000, Approximate Total Volume = 280 mL Refrigerate Start: 01-29-2024 End: 01-29-2024 150 mg, INTRAVENOUS, Adminis ter over 30 Minutes, ONCE, 1 dose, On Mon01/29/24 at 1030, Refrigerate guaifenesin/dextromethorphan (GUAIFENESIN DM ORAL) (20 sources) End: 10-15-2024 guaifenesin/dextromethorphan (GUAIFENESIN DM ORAL) Take by mouth once daily. 10/15/2024 Discontinued (Discontinued by Patient) guaifenesin/dext romethorphan (GUAIFENESIN DM ORAL) Take by mouth once daily. Active lisinopril 10 mg oral tablet (1 source) Angiotensin Converting Enzyme Inhibitor Start: 04-30-2013 End: 04-30-2024 take 4 tablets by mouth once daily Lisinopril 10 MG tablet Discontinued 40 mg PO DAILY April 30, 2013 1:00am April 30, 2024 3:30pm 100 ml magnesium sulfate 40 mg/ml injection (4 sources) Start: 10-07-2024 End: 10-07-2024 take 2 g intravenously every hour 4 g, INTRAVENOUS, at 25-50 mL/hr, Administer over 2-4 Hours, ONCE, 1 dose, On 10/07/24 at 1000, Magnesium 1.4 to 1.6 infuse 4gm Magnesium Sulfate IV over 2 hours. Magnesium sulfate iv bolus will be infused at a rate of 1 gram/hr The following nursing units may administer 2 g dose over 1 hour if necessary: ICUs/PACU/ED, Adult Hematology/[facility], Labor and Delivery, Cardiac Stepdown, Headache Clinic If necessary, a magnesium sulfate bolus may be administered greater than 2 g/hr for the following indications: Adult and Pediatric Asthma Exacerbations, Torsade de Pointes, Pediatric BMT and Hematology/[place]colo gy, Eclampsia or Preeclampsia Start: 04-25-2024 End: 04-25-2024 take 2 g intravenously every hour 4 g, INTRAVENOUS, at 25-50 mL/hr, Administer over 2-4 Hours, ONCE, 1 dose, On Jamila 04/25/24 at 1130, Magnesium 1.4 to 1.6 infuse 4gm Magnesium Sulfate IV over 2 hours. Magnesium sulfate iv bolus will be infused at a rate of 1 gram/hr The following nursing units may administer 2 g dose over 1 hour if necessary: ICUs/PACU/ED, Adult Hematology/Oncology, Labor and Delivery, Cardiac Stepdown, Headache Clinic If necessary, a magnesium sulfate bolus may be administered greater than 2 g/hr for the following indications: Adult and Pediatric Asthma Exacerbations, Torsade de Pointes, Pediatric BMT and Hematology/Oncology, Eclampsia or Preeclampsia Start: 01-30-2024 End: 01-30-2024 2 g, INTRAVENOUS, at 25-50 m L/hr, Administer over 1-2 Hours, ONCE, 1 dose, On Mon01/30/24 at 1400, Magnesium Sulfate IV bolus will be infused at a rate of 1 gram/hr. The following care areas may administer a magnesium sulfate bolus at a rate of 2 grams/hr if necessary: 1) ICUs/PACU/ED 2) Adult Hematology/Oncology 3) Labor and Delivery 4) Cardiac Step Down 5) Headache Clinic The following care areas may administer a magnesium sulfate bolus at a rate of GREATER than 2 grams/hr if necessary: 1) Adult and Pediatric Asthma Exacerbations 2) Torsade de Pointes 3) Pediatric BMT and Hematology/Oncology 4) Eclampsia or Preeclampsia Start: 01-29-2024 End: 01-29-2024 4 g, INTRAVENOUS, at 25-50 m L/hr, Administer over 2-4 Hours, ONCE, 1 dose, On Mon01/29/24 at 1230, Magnesium 1.4 to 1.6 infuse 4gm Magnesium Sulfate IV over 2 hours. Magnesium Sulfate IV bolus will be infused at a rate of 1 gram/hr. The following care areas may administer a magnesium sulfate bolus at a rate of 2 grams/hr if necessary: 1) ICUs/PACU/ED 2) Adult Hematology/Oncology 3) Labor and Delivery 4) Cardiac Step Down 5) Headache Clinic The following care areas may administer a magnesium sulfate bolus at a rate of GREATER than 2 grams/hr if necessary: 1) Adult and Pediatric Asthma Exacerbations 2) Torsade de Pointes 3) Pediatric BMT and Hematology/Oncology 4) Eclampsia or Preeclampsia meloxicam 15 mg oral tablet (1 source) Nonsteroidal Anti-inflammatory Drug Start: 04-30-2013 End: 05-08-2013 Meloxicam (Mobic) 15 MG tablet Discontinued 15 mg PO April 30, 2013 1:00am May 08, 2013 1:13pm Methocarbamol (20 sources) Muscle Relaxant Start: 05-31-2024 End: 10-15-2024 take 1 tablet by mouth three times daily for pain methocarbamol 1,000 mg tablet Indications: Chronic low back pain with sciatica, sciatica laterality unspecified, unspecified back pain laterality Take 1 tablet by mouth three times a day. For back pain 90 tablet 5 05/31/2024 10/15/2024 Discontinued (Discontinued by Patient) Start: 05-31-2024 End: 11-27-2024 take 1 tablet by mouth three times daily for pain methocarbamol 1,000 mg tablet Indications: Chronic low back pain with sciatica, sciatica laterality unspecified, unspecified back pain laterality Take 1 tablet by mouth three times a day. For back pain 90 tablet 5 05/31/2024 11/27/2024 Active Start: 05-09-2024 End: 11-05-2024 take 1 tablet by mouth three times daily for pain methocarbamol (ROBAXIN) 500 mg tablet Indications: Chronic low back pain with sciatica, sciatica laterality unspecified, unspecified back pain laterality Take 1 tablet by mouth three times a day. 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 FOR PAIN. 28 tablet 02/01/2024 02/02/2024 Discontinued 5 ml palonosetron 0.05 mg/ml injection (4 sources) Serotonin-3 Receptor Antagonist Start: 04-01-2024 End: 04-01-2024 0.25 mg, INTRAVENOUS, ONCE, 1 dose, On Mon04/01/24 at 1000, Flush IV line with NS prior to and following administration. Start: 03-11-2024 End: 03-11-2024 0.25 mg, INTRAVENOUS, ONCE, 1 dose, On Mon03/11/24 at 1030, Flush IV line with NS prior to and following administration. Start: 02-19-2024 End: 02-19-2024 0.25 mg, INTRAVENOUS, ONCE, 1 dose, On Mon02/19/24 at 1000, Flush IV line with NS prior to and following administration. Start: 01-29-2024 End: 01-29-2024 0.25 mg, INTRAVENOUS, ONCE, 1 dose, On 01/29/24 at 1030, Flush IV line with NS prior to and following administration. 0.6 ml [id number] 10 mg/ml prefilled syringe (4 sources) Leukocyte Growth Factor Start: 04-04-2024 End: 04-04-2024 6 mg, SUBCUTANEOUS, ONCE, 1 dose, On Jamila 04/04/24 at 1400, Refrigerate - Protect From Light - Do Not Shake - Allow prefilled syringe to reach room temperature for at least 30 minutes prior to injection. Start: 03-14-2024 End: 03-14-2024 6 mg, SUBCUTANEOUS, ONCE, 1 dose, On Jmaila 03/14/24 at 1500, Refrigerate - Protect From Light - Do Not Shake - Allow prefilled syringe to reach room temperature for at least 30 minutes prior to injection. Start: 02-22-2024 End: 02-22-2024 6 mg, SUBCUTANEOUS, ONCE, 1 dose, On Jamila 02/22/24 at 1400, Refrigerate - Protect From Light - Do Not Shake - Allow prefilled syringe to reach room temperature for at least 30 minutes prior to injection. Start: 02-01-2024 End: 02-01-2024 6 mg, SUBCUTANEOUS, ONCE, 1 dose, On Jamila 02/01/24 at 1030, Refrigerate - Protect From Light - Do Not Shake - Allow prefilled syringe to reach room temperature for at least 30 minutes prior to injection. perflutren lipid microspheres 1.3 mL in NaCl (PF) 0.9% 10 mL injection (DEFINITY) (20 sources) Start: 09-24-2021 End: 12-24-2022 perflutren lipid microspheres 1.3 mL in NaCl (PF) 0.9% 10 mL injection (DEFINITY) polyethylene glycol 3350 [id number] mg / potassium chloride 2970 mg / sodium bicarbonate 6740 mg / sodium chloride 5860 mg / sodium sulfate 16291 mg powder for oral solution (1 source) Osmotic Laxative Start: 04-18-2023 End: 04-18-2023 peg 3350-Electrolytes (GOLYTELY) 236-22.74-6.74 -5.86 gram suspension Indications: Tobacco use Take 4,000 mL by mouth one time only for 1 dose. Refer to printed prep instructions from your provider. 4000 mL 0 04/18/2023 04/18/2023 Comment on above: Take 4,000 mL by chavez th one time only for 1 dose. Refer to printed prep instructions from your provider. regadenoson 0.4 mg injection (LEXISCAN) (2 sources) Start: 11-13-2023 End: 11-13-2023 regadenoson 0.4 mg injection (LEXISCAN) 60 actuat salmeterol 0.05 mg/actuat dry powder inhaler (20 sources) beta2-Adrenergic Agonist Start: 09-13-2022 End: 09-29-2023 take 1 puff(s) by inhalation twice daily salmeterol (SEREVENT DISKUS) 50 mcg/dose diskus inhaler Inhale 1 Puff as instructed twice daily. 5 Each 5 09/13/2022 09/29/2023 Discontinued Comment on above: Inhale 1 Puff as ins tructed twice daily. sertraline 100 mg oral tablet (20 sources) Serotonin Reuptake Inhibitor Start: 11-01-2022 End: 02-29-2024 take 1 tablet by mouth once daily sertraline (ZOLOFT) 100 mg tablet Indications: Mild episode of recurrent major depressive disorder (HCC) , Alcohol dependence with uncomplicated intoxication (HCC) Take 1 tablet by mouth once daily. 30 tablet 5 04/12/2023 08/29/2023 Discontinued Start: 08-12-2022 take 1 tablet by chavez th once daily sertraline (ZOLOFT) 100 mg tablet Indications: Mild episode of recurrent major depressive disorder (HCC) , Alcohol dependence with uncomplicated intoxication (HCC) Take 1 tablet by mouth once daily. 30 tablet 5 08/12/2022 Active Start: 09-24-2021 End: 08-12-2022 take 1 tablet by mouth once daily sertraline (ZOLOFT) 50 mg tablet Indications: Mild episode of recurrent major depressive disorder (HCC) Take 1 tablet by mouth once daily. 90 tablet 1 09/24/2021 04/19/2022 Discontinued Start: 04-12-2021 take 1 tablet by chavez th once daily sertraline (ZOLOFT) 50 mg tablet Indications: Mild episode of recurrent major depressive disorder (HCC) Take 1 tablet by mouth once daily. 90 tablet 1 04/12/2021 Active Start: 01-17-2020 End: 04-30-2024 take 1 tablet by mouth once daily sertraline (ZOLOFT) 50 mg tablet Indications: Mild episode of recurrent major depressive disorder (HCC) Take 1 tablet by mouth once daily. 90 tablet 1 04/29/2020 10/27/2020 Discontinued Comment on above: Take 1 tablet by chavez once daily. 1000 ml sodium chloride 9 mg/ml injection (20 sources) Start: 12-30-2024 End: 12-30-2024 500 mL, INTRAVENOUS, at 500 mL/hr, Administer over 1 Hours, ONCE, 1 dose, On Mon12/30/24 at 1100 Start: 12-03-2024 End: 12-03-2024 500 mL, INTRAVENOUS, at 500 mL/hr, Administer over 1 Hours, ONCE, 1 dose, On Mon12/03/24 at 1200 Start: 11-04-2024 End: 11-04-2024 500 mL, INTRAVENOUS, at 500 mL/hr, Administer over 1 Hours, ONCE, 1 dose, On Mon11/04/24 at 1030 Start: 04-30-2024 take 1 tablet by chavez three times daily Sodium Chloride 1,000 mg tablet,soluble Active 1000 mg PO THREE TIMES A DAY April 30, 2024 1:00am Start: 01-16-2024 End: 01-16-2024 1,000 mL, INTRAVENOUS, at 50 0 mL/hr, Administer over 2 Hours, ONCE, 1 dose, On Mon01/16/24 at 1030 Start: 01-14-2024 End: 05-09-2024 take 1 tablet by mouth three times daily sodium chloride soluble tablet 1 g Take 1 tablet by mouth three times a day. 90 tablet 1 01/14/2024 05/09/2024 Discontinued (Discontinued by Patient) Start: 09-24-2021 End: 12-24-2022 sodium chloride 0.9 % (flush ) 10 mL (BD POSIFLUSH) 10 actuat tiotropium 0.0025 mg/actuat inhalation spray (5 sources) Anticholinergic Start: 02-07-2022 End: 08-06-2022 take 2 puff(s) by inhalation once daily, then take 2 puff(s) by inhalation once daily tiotropium bromide (SPIRIVA RESPIMAT) 2.5 mcg/actuation inhaler Indications: Chronic obstructive pulmonary disease, unspecified COPD type (HCC) Inhale 2 Puffs as instructed once daily. Inhale two puffs once daily. 1 g 5 02/07/2022 02/09/2022 Discontinued (Cost of medication) Comment on above: Inhale 2 Puffs as in structed once daily. Inhale two puffs once daily. triamcinolone acetonide 1 mg/ml topical cream (20 sources) Corticosteroid Start: 06-02-2020 End: 08-16-2022 triamcinolone acetonide (KENALOG) 0.1 % cream 06/02/2020 08/16/2022 Discontinued (Discontinued by Patient) 100 ml zoledronic acid 0.04 mg/ml injection (4 sources) Bisphosphonate Start: 10-07-2024 End: 10-07-2024 4 mg, INTRAVENOUS, Administer over 15 Minutes, ONCE, 1 dose, On Mon10/07/24 at 1000, Hazardous Potential Reproductive Risk Drug: Use appropriate PPE. Start: 07-15-2024 End: 07-15-2024 4 mg, INTRAVENOUS, Administe r over 15 Minutes, ONCE, 1 dose, On Mon07/15/24 at 1000, Hazardous Potential Reproductive Risk Drug: Use appropriate PPE. Start: 04-25-2024 End: 04-25-2024 4 mg, INTRAVENOUS, Administe r over 15 Minutes, ONCE, 1 dose, On Jamila 04/25/24 at 1130, Hazardous Potential Reproductive Risk Drug: Use appropriate PPE. Start: 01-31-2024 End: 01-31-2024 4 mg, INTRAVENOUS, Administe r over 15 Minutes, ONCE, 1 dose, On Mon01/31/24 at 0900, Hazardous Potential Reproductive Risk Drug: Use appropriate PPE. Problems Active Problems Problem Classification Problem Date Documented Da te Episodic/Chronic Acute and unspecified renal failure (1 source) Acute renal failure syndrome; Translations: [Acute kidney failure, unspecified] 01-17-2020 Episodic Alcohol-related disorders (20 sources) Alcohol dependence; Translations: [Alcohol dependence with intoxication, uncomplicated] Onset: 2 09-24-2021 Chronic Cancer of bronchus; lung (20 sources) Small cell carcinoma of lung; Translations: [Malignant neoplasm of right main bronchus] Onset: 4 01-12-2024 Chronic Cancer; other respiratory and intrathoracic (2 sources) Malignant neoplasm of lower respiratory tract 09-09-2024 Chronic Cardiac dysrhythmias (3 sources) Paroxysmal atrial fibrillation; Translations: [Paroxysmal atrial fibrillation] Onset: 4 05-09-2024 Chronic Chronic obstructive pulmonary disease and bronchiectasis (3 sources) Chronic obstructive lung disease; Translations: [Chronic obstructive pulmonary disease, unspecified] Chronic Complications of surgical procedures or medical care (3 sources) Anemia due to antineoplastic chemotherapy; Translations: [Antineoplastic chemotherapy induced anemia] 06-17-2024 Chronic Congestive heart failure; nonhypertensive (3 sources) Congestive heart failure; Translations: [Heart failure, unspecified] Onset: 4 04-30-2024 Chronic Coronary atherosclerosis and other heart disease (20 sources) Calcification of coronary artery; Translations: [Atherosclerotic heart disease of nome coronary artery without angina pectoris] Onset: 4 09-29-2023 Chronic Deficiency and other anemia (1 source) Iron deficiency anemia due to blood loss; Translations: [Iron deficiency anemia secondary to blood loss (chronic)] 05-09-2024 Chronic Deficiency and other anemia (1 source) Iron deficiency anemia secondary to blood loss (chronic); Translations: [Iron deficiency anemia due to chronic blood loss] Onset: Chronic Deficiency and other anemia (1 source) Macrocytic anemia; Translations: [Nutritional anemia, unspecified] 04-22-2024 Episodic Diseases of white blood cells (20 sources) Leukocytosis; Translations: [Elevated white blood cell count, unspecified] Onset: 7 12-27-2017 Chronic Disorders of lipid metabolism (20 sources) Mixed hyperlipidemia; Translations: [Mixed hyperlipidemia] Onset: 8 10-24-2017 Chronic Esophageal disorders (20 sources) Gastroesophageal reflux disease without esophagitis; Translations: [Gastro-esophageal reflux disease without esophagitis] Onset: 8 03-05-2021 Chronic Essential hypertension (20 sources) Essential hypertension; Translations: [Essential (primary) hypertension] Onset: 7 07-13-2021 Chronic Fluid and electrolyte disorders (2 sources) Hyponatremia; Translations: [Hypo-osmolality and hyponatremia] 01-17-2020 Episodic Genitourinary symptoms and ill-defined conditions (2 sources) Increased frequency of urination; Translations: [Frequency of micturition] Onset: 5 01-25-2024 Episodic Hyperplasia of prostate (20 sources) Benign prostatic hypertrophy without outflow obstruction; Translations: [Benign prostatic hyperplasia without lower urinary tract symptoms] Onset: 7 Resolved: 8 12-27-2017 Chronic Immunizations and screening for infectious disease (1 source) Vaccination needed; Translations: [Encounter for immunization] Episodic Mood disorders (20 sources) Recurrent major depressive episodes; Translations: [Major depressive disorder, recurrent, unspecified] Onset: 5 10-24-2017 Chronic Other aftercare (2 sources) Drug therapy finding; Translations: [Other nursing home (current) drug therapy] Episodic Other circulatory disease (1 source) Orthostatic hypotension; Translations: [Orthostatic hypotension] 02-22-2024 Episodic Other connective tissue disease (1 source) Weakness of hand; Translations: [Other symptoms and signs involving the musculoskeletal system] 09-03-2020 Episodic Other connective tissue disease (1 source) Spasm; Translations: [Other muscle spasm] 05-04-2020 Episodic Other ear and sense organ disorders (20 sources) Hearing loss in left ear; Translations: [Unspecified hearing loss, left ear] Onset: 1 09-15-2010 Chronic Other endocrine disorders (1 source) Unspecified adrenocortical insufficiency; 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)] Onset: 4 Chronic Other gastrointestinal disorders (1 source) Alteration in bowel elimination; Translations: [Change in bowel habit] Episodic Other gastrointestinal disorders (1 source) Diarrhea; Translations: [Diarrhea, unspecified] 10-15-2024 Episodic Other gastrointestinal disorders (1 source) Diarrhea, unspecified; Translations: [Diarrhea, unspecified type] Onset: 5 Episodic Other inflammatory condition of skin (1 source) Psoriasis; Translations: [Psoriasis, unspecified] 04-22-2024 Chronic Other liver diseases (5 sources) Lesion of liver; Translations: [Liver disease, unspecified] 10-30-2023 Chronic Other liver diseases (3 sources) Liver disease, unspecified; Translations: [Liver lesion] Onset: 4 Chronic Other liver diseases (1 source) Enzyme level - finding; Translations: [Elevated transaminase measurement] 01-17-2020 Episodic Other lower respiratory disease (9 sources) Dyspnea on exertion; Translations: [Other forms of dyspnea] Episodic Other lower respiratory disease (2 sources) Nodule of lung; Translations: [Solitary pulmonary nodule] 08-29-2023 Episodic Other lower respiratory disease (5 sources) Multiple nodules of lung; Translations: [Other nonspecific abnormal finding of lung field] 09-19-2023 Episodic Other lower respiratory disease (2 sources) Hypoxia; Translations: [Hypoxemia] 04-30-2024 Episodic Other nervous system disorders (1 source) Other chronic pain; Translations: [Chronic low back pain with sciatica, sciatica laterality unspecified, unspecified back pain laterality] Onset: 2 Chronic Other nutritional; endocrine; and metabolic disorders (2 sources) Body mass index 40+ - severely obese; Translations: [Morbid (severe) obesity due to excess calories] Chronic Other nutritional; endocrine; and metabolic disorders (1 source) Severe obesity; Translations: [Morbid (severe) obesity due to excess calories] 08-29-2023 Chronic Other nutritional; endocrine; and metabolic disorders (1 source) Morbid (severe) obesity due to excess calories; Translations: [Obesity, Class III, BMI 40-49.9 (morbid obesity) (HCC)] Onset: 5 Chronic Other skin disorders (2 sources) Disorder of nail; Translations: [Other nail disorders] Episodic Residual codes; unclassified (6 sources) Obstructive sleep apnea syndrome; Translations: [Obstructive sleep apnea (adult) (pediatric)] Chronic Residual codes; unclassified (4 sources) Obstructive sleep apnea (adult) (pediatric); Translations: [Obstructive sleep apnea (adult) (pediatric)] Onset: 5 Chronic Residual codes; unclassified (7 sources) Tobacco user; Translations: [Tobacco use] 03-21-2023 Episodic Residual codes; unclassified (1 source) Tobacco use and exposure - finding; Translations: [Tobacco use] 04-19-2023 Episodic Residual codes; unclassified (1 source) Alcohol misuser in household; Translations: [Other specified personal risk factors, not elsewhere classified] 08-29-2023 Episodic Residual codes; unclassified (2 sources) Edema, generalized; Translations: [Generalized edema] 05-09-2024 Episodic Screening and history of mental health and substance abuse codes (1 source) Ex-tobacco user; Translations: [Personal history of nicotine dependence] 12-18-2023 Episodic Secondary malignancies (20 sources) Secondary malignant neoplasm of liver; Translations: [Secondary malignant neoplasm of liver and intrahepatic bile duct] Onset: 4 01-12-2024 Chronic Secondary malignancies (20 sources) Secondary malignant neoplasm of bone; Translations: [Secondary malignant neoplasm of bone] Onset: 4 01-12-2024 Chronic Secondary malignancies (20 sources) Secondary malignant neoplasm of intra-abdominal lymph nodes; Translations: [Secondary and unspecified malignant neoplasm of intra-abdominal lymph nodes] Onset: 4 01-12-2024 Chronic Secondary malignancies (2 sources) Secondary malignant neoplasm of liver and intrahepatic bile duct; Translations: [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)] Onset: 4 Chronic Secondary malignancies (2 sources) Secondary malignant neoplasm of bone; Translations: [Metastatic cancer to bone (HCC)] Onset: 4 Chronic Secondary malignancies (2 sources) Secondary and unspecified malignant neoplasm of intra-abdominal lymph nodes; Translations: [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)] Onset: 4 Chronic Skin and subcutaneous tissue infections (2 sources) Cellulitis of skin; Translations: [Cellulitis, unspecified] 12-12-2023 Episodic Spondylosis; intervertebral disc disorders; other back problems (20 sources) Degeneration of lumbar intervertebral disc; Translations: [Other intervertebral disc degeneration, lumbar region] Onset: 0 01-04-2020 Chronic Sprains and strains (1 source) Strain of neck muscle; Translations: [Strain of muscle, fascia and tendon at neck level, initial encounter] 05-04-2020 Episodic Substance-related disorders (20 sources) Tobacco user; Translations: [Nicotine dependence, unspecified, uncomplicated] Onset: 9 07-15-2008 Chronic Thyroid disorders (5 sources) Acquired hypothyroidism; Translations: [Hypothyroidism, unspecified] Onset: 4 03-12-2024 Chronic Unclassified (1 source) Readiness finding 01-17-2020 Unclassified (1 source) Radiology NM Onset: 5 Unclassified (1 source) Degeneration of intervertebral disc of lumbar region, unspecified whether pain present; Translations: [Degeneration of intervertebral disc of lumbar region, unspecified whether pain present] Onset: 0 Unclassified (1 source) Bilateral low back pain, unspecified chronicity, unspecified whether sciatica present; Translations: [Bilateral low back pain, unspecified chronicity, unspecified whether sciatica present] Onset: 2 Past or Other Problems Problem Classification Problem Date Documented Da te Episodic/Chronic Abdominal pain (20 sources) Abdominal pain; Translations: [Unspecified abdominal pain] Onset: 01-22-2008 01-22-2008 Episodic Administrative/social admission (1 source) Counseling, unspecified; Translations: [Encounter for education] Onset: 01-17-2024 Episodic Deficiency and other anemia (1 source) Nutritional anemia, unspecified; Translations: [Macrocytic anemia] Onset: 04-25-2024 Episodic Diabetes mellitus without complication (20 sources) Prediabetes; Translations: [Prediabetes] Onset: 10-24-2017 Episodic Lymphadenitis (3 sources) Hilar lymphadenopathy ; Translations: [Localized enlarged lymph nodes] Onset: 01-16-2024 12-18-2023 Episodic Nonspecific chest pain (20 sources) Chest pain; Translations: [Chest pain, unspecified] Onset: 07-15-2008 07-15-2008 Episodic Open wounds of extremities (2 sources) Open wound of hand; Translations: [Laceration without foreign body of unspecified hand, sequela] Onset: 05-31-2024 05-31-2024 Episodic Other circulatory disease (20 sources) Elevated blood-pressure reading without diagnosis of hypertension; Translations: [Elevated blood-pressure reading, without diagnosis of hypertension] Onset: 05-01-2006 Resolved: 12-17-2010 12-17-2010 Episodic Other connective tissue disease (20 sources) Medial epicondylitis; Translations: [Medial epicondylitis, unspecified elbow] Onset: 02-24-2010 Resolved: 09-15-2010 09-15-2010 Episodic Other gastrointestinal disorders (20 sources) Stool DNA-based colorectal cancer screening positive; Translations: [Other fecal abnormalities] Onset: 05-19-2023 03-22-2023 Episodic Other lower respiratory disease (1 source) Shortness of breath; Translations: [Shortness of breath] Onset: 05-29-2024 Episodic Other lower respiratory disease (1 source) Other nonspecific abnormal finding of lung field; Translations: [Lung nodule, multiple] Onset: 01-16-2024 Episodic Other male genital disorders (20 sources) Disorder of male genital organ; Translations: [Other hydrocele] Onset: 01-22-2008 01-22-2008 Episodic Other non-traumatic joint disorders (20 sources) Pain in lower limb; Translations: [Pain in unspecified knee] Onset: 01-30-2006 01-30-2006 Episodic Other non-traumatic joint disorders (20 sources) Arthralgia of the ankle and/or foot; Translations: [Pain in unspecified ankle and joints of unspecified foot] Onset: 01-30-2006 01-30-2006 Episodic Other nutritional; endocrine; and metabolic disorders (20 sources) Overweight; Translations: [Overweight] Onset: 09-15-2010 12-10-2018 Episodic Other screening for suspected conditions (not mental disorders or infectious disease) (20 sources) Patient encounter status; Translations: [Encounter for screening for malignant neoplasm of prostate] Onset: 01-01-2024 Episodic Other skin disorders (20 sources) Sebaceous cyst of skin; Translations: [Sebaceous cyst] Onset: 01-22-2008 01-22-2008 Episodic Residual codes; unclassified (4 sources) Other specified health status; Translations: [Other specified conditions influencing health status] Onset: 07-17-2024 07-17-2024 Episodic Residual codes; unclassified (1 source) Generalized edema; Translations: [Generalized edema] Onset: 05-20-2024 Episodic Spondylosis; intervertebral disc disorders; other back problems (20 sources) Backache; Translations: [Dorsalgia, unspecified] Onset: 04-07-2005 04-07-2005 Episodic Results Test Name Value Interpretation Reference Range Facility CBC W Auto Differential pane l (Bld)on 12-30-2024 Basophils (Bld) [#/Vol] 0.04 10*3/uL Normal <0.11 [facility] Comment on above: Order Comment: Speci men Type: BLOOD SPECIMENOrdering Facility: [facility] Address: [address] [place] [address] Performed By: #### 5 7021-8 ####[facility] MILLWNCLIA [id number] [place] [address] [place] Basophils/100 WBC (Bld) 0.5 % Normal C [facility] Comment on above: Order Comment: Speci men Type: BLOOD SPECIMENOrdering Facility: [facility] Address: [address] [place] [address] Performed By: #### 5 7021-8 ####[facility]ITALLIA [id number] [place] [address] [place] Differential cell count method Nom (Bld) Auto Normal [facility] Comment on above: Order Comment: Speci men Type: BLOOD SPECIMENOrdering Facility: [facility] Address: [address] [place] [address] Performed By: #### 5 7021-8 ####[facility] CENTERWTNLIA [id number] [place] [address] [place] Eosinophils (Bld) [#/Vol] 0.11 10*3/uL Normal <0.46 [facility] Comment on above: Order Comment: Speci men Type: BLOOD SPECIMENOrdering Facility: [facility] Address: [address] [place] [address] Performed By: #### 5 7021-8 ####[facility] CENTERWNCLIA [id number] [place] [address] [place] Eosinophils/100 WBC (Bld) 1.3 % Normal [facility] Comment on above: Order Comment: Speci men Type: BLOOD SPECIMENOrdering Facility: [facility] Address: [address] [place] [address] Performed By: #### 5 7021-8 ####[facility] CENTERNCLIA [id number] [place] [address] [place] Erythrocyte distribution width (RBC) [Ratio] 14.9 % Normal 11.5-15.0 [facility] Comment on above: Order Comment: Speci men Type: BLOOD SPECIMENOrdering Facility: [facility] Address: [address] [place] [address] Performed By: #### 5 7021-8 ####[facility]ENTERNCMOUNTAIN [facility] [id number] [place] [address] [place] Hematocrit (Bld) [Volume fraction] 37.7 % Low 39.0-51.0 [facility] Comment on above: Order Comment: Speci men Type: BLOOD SPECIMENOrdering Facility: [facility] Address: [address] [place] [address] Performed By: #### 5 7021-8 ####[facility]ERNCMOUNT[facility] [id number] [place] [address] [place] Hemoglobin (Bld) [Mass/Vol] 12.4 g/dL Low 13.0-17.0 [facility] Comment on above: Order Comment: Speci men Type: BLOOD SPECIMENOrdering Facility: [facility] Address: [address] [place] [address] Performed By: #### 5 7021-8 ####[facility] CENTERNCLIA [id number] [place] [address] [place] Immature granulocytes (Bld) [#/Vol] 0.06 10*3/uL Normal <0.10 [facility] Comment on above: Order Comment: Speci men Type: BLOOD SPECIMENOrdering Facility: [facility] Address: [address] [place] [address] Performed By: #### 5 7021-8 ####[facility] CENTERNCLIA [id number] [place] [address] [place] Immature granulocytes/100 WBC (Bld) 0.7 % Normal [facility] Comment on above: Order Comment: Speci men Type: BLOOD SPECIMENOrdering Facility: [facility] Address: [address] [place] [address] Performed By: #### 5 7021-8 ####[facility] CENTERMENDELA [id number] [place] [address] [place] Lymphocytes (Bld) [#/Vol] 1.51 10*3/uL Normal 1.00-4.00 [facility] Comment on above: Order Comment: Speci men Type: BLOOD SPECIMENOrdering Facility: [facility] Address: [address] [place] [address] Performed By: #### 5 7021-8 ####[facility] CENTERLORENZOMOUNTAIN WEST MEDICAL [facility]ENTER [id number] [place] [address] [place] Lymphocytes/100 WBC (Bld) 18.0 % Normal [facility] Comment on above: Order Comment: Speci men Type: BLOOD SPECIMENOrdering Facility: [facility] Address: [address] [place] [address] Performed By: #### 5 7021-8 ####[facility] CENTERATIF [id number] [place] [address] [place] MCH (RBC) [Entitic mass] 33.3 pg Normal 26.0-34.0 [facility] Comment on above: Order Comment: Speci men Type: BLOOD SPECIMENOrdering Facility: [facility] Address: [address] [place] [address] Performed By: #### 5 7021-8 ####[facility] CENTERNCLIA [id number] [place] [address] [place] MCHC (RBC) [Mass/Vol] 32.9 g/dL Normal 30.5-36.0 [facility] Comment on above: Order Comment: Speci men Type: BLOOD SPECIMENOrdering Facility: [facility] Address: [address] [place] [address] Performed By: #### 5 7021-8 ####[facility] ORVILLEBRADFORDLIA [id number] [place] [address] [place] MCV (RBC) [Entitic vol] 101.3 fL High 80.0-100.0 [facility] Comment on above: Order Comment: Speci men Type: BLOOD SPECIMENOrdering Facility: [facility] Address: [address] [place] [address] Performed By: #### 5 7021-8 ####[facility]PITALLIA [id number] [place] [address] [place] Monocytes (Bld) [#/Vol] 1.03 10*3/uL High <0.87 [facility] Comment on above: Order Comment: Speci men Type: BLOOD SPECIMENOrdering Facility: [facility] Address: [address] [place] [address] Performed By: #### 5 7021-8 ####[facility] CENTERA [id number] [place] [address] [place] Monocytes/100 WBC (Bld) 12.3 % Normal C [facility] Comment on above: Order Comment: Speci men Type: BLOOD SPECIMENOrdering Facility: [facility] Address: [address] [place] [address] Performed By: #### 5 7021-8 ####[facility] CENTERLORENZOLIA [id number] [place] [address] [place] Neutrophils (Bld) [#/Vol] 5.65 10*3/uL Normal 1.45-7.50 [facility] Comment on above: Order Comment: Speci men Type: BLOOD SPECIMENOrdering Facility: [facility] Address: [address] [place] [address] Performed By: #### 5 7021-8 ####[facility] CENTERLORENZOMOUNTAIN WEST [facility]ICAL [facility]ENTER [id number] [place] [id number] [place] Neutrophils/100 WBC (Bld) 67.2 % Normal [facility] Comment on above: Order Comment: Speci men Type: BLOOD SPECIMENOrdering Facility: [facility] Address: [address] [place] [address] Performed By: #### 5 7021-8 ####[facility]ENTERNCMOUNTAIN [facility] [id number] [place] [address] [place] Nucleated RBC (Bld) [#/Vol] 10*3/uL Normal <0.01 [facility] Comment on above: Order Comment: Speci men Type: BLOOD SPECIMENOrdering Facility: [facility] Address: [address] [place] [address] Performed By: #### 5 7021-8 ####[facility]ENTERNCMOUNT[facility] [id number] [place] [address] [place] Nucleated RBC/100 WBC (Bld) [Ratio] 0.0 /100 WBC Normal [facility] Comment on above: Order Comment: Speci men Type: BLOOD SPECIMENOrdering Facility: [facility] Address: [address] [place] [address] Performed By: #### 5 7021-8 ####[facility]ENTERNCMOUNT[facility] [id number] [place] [address] [place] Platelet mean volume (Bld) [Entitic vol] 10.1 fL Normal 9.0-12.7 [facility] Comment on above: Order Comment: Speci men Type: BLOOD SPECIMENOrdering Facility: [facility] Address: [address] [place] [address] Performed By: #### 5 7021-8 ####[facility] [id number] [place] [address] [place] Platelets (Bld) [#/Vol] 237 10*3/uL Normal 150-400 [facility] Comment on above: Order Comment: Speci men Type: BLOOD SPECIMENOrdering Facility: [facility] Address: [address] [place] [address] Performed By: #### 5 7021-8 ####[facility] ORVILLEGERRYA [id number] [place] [address] [place] RBC (Bld) [#/Vol] 3.72 10*6/uL Low 4.20-6.00 [facility] Comment on above: Order Comment: Speci men Type: BLOOD SPECIMENOrdering Facility: [facility] Address: [address] [place] [address] Performed By: #### 5 7021-8 ####[facility] CENTERJUAN [id number] [place] [address] [place] WBC (Bld) [#/Vol] 8.40 10*3/uL Normal 3.70-11.00 [facility] Comment on above: Order Comment: Speci men Type: BLOOD SPECIMENOrdering Facility: [facility] Address: [address] [place] [address] Performed By: #### 5 7021-8 ####[facility] CENTERJUAN [id number] [place] [address] [place] CNOVSPon 12-30-2024 CNOVSP Normal [facility] Comprehensive metabolic 2000 panelon 12-30-2024 Albumin [Mass/Vol] 4.3 g/dL Normal 3.9-4.[address] [facility] Comment on above: Order Comment: Speci men Type: BLOOD SPECIMENOrdering Facility: [facility] Address: [address] [place] [address] Performed By: #### 1 9123-9, 55689-5 ####[facility] ORVILLEPHILADELPHIAMENDELA [id number] [place] [address] [place] ALP [Catalytic activity/Vol] 94 U/L Normal 38-113 [facility] Comment on above: Order Comment: Speci men Type: BLOOD SPECIMENOrdering Facility: [facility] Address: [address] [place] [address] Performed By: #### 1 9123-9, 31490-1 ####[facility] STACEY ROSALEE [id number] [place] [address] [place] ALT [Catalytic activity/Vol] 22 U/L Normal 10-54 [facility] Comment on above: Order Comment: Speci men Type: BLOOD SPECIMENOrdering Facility: [facility] Address: [address] [place] [address] Performed By: #### 1 9123-9, 15323-0 ####[facility] ORVILLEBERLINNCLIA [id number] [place] [address] [place] Anion gap [Moles/Vol] 17 mmol/L High 8-15 [facility] Comment on above: Order Comment: Speci men Type: BLOOD SPECIMENOrdering Facility: [facility] Address: [address] [place] [address] Performed By: #### 1 9123-9, 26308-9 ####[facility] ORVILLEPHILADELPHIANCMICHELA [id number] [place] [address] [place] AST [Catalytic activity/Vol] 27 U/L Normal 14-40 [facility] Comment on above: Order Comment: Speci men Type: BLOOD SPECIMENOrdering Facility: [facility] Address: [address] [place] [address] Performed By: #### 1 9123-9, 58058-5 ####[facility] CENTERNCLIA [id number] [place] [address] [place] Bilirubin [Mass/Vol] 0.4 mg/dL Normal 0.2-1.3 [facility] Comment on above: Order Comment: Speci men Type: BLOOD SPECIMENOrdering Facility: [facility] Address: [address] [place] [address] Performed By: #### 1 9123-9, 86664-4 ####[facility] STCAEY MILLTOWNCLIA [id number] [place] [address] [place] Calcium [Mass/Vol] 9.5 mg/dL Normal 8.5-10.[address] [facility] Comment on above: Order Comment: Speci men Type: BLOOD SPECIMENOrdering Facility: [facility] Address: [address] [place], [place] [id number] Performed By: #### 1 9123-9, 19365-0 ####[facility] MILLTOWNCLIA [id number] [place] [address] [place] Chloride [Moles/Vol] 95 mmol/L Low 98-107 [facility] Comment on above: Order Comment: Speci men Type: BLOOD SPECIMENOrdering Facility: [facility] Address: [address] [place], [place] [address] Performed By: #### 1 9123-9, 80056-3 ####[facility] MILLWNCLIA [id number] [place] [address] [place] CO2 [Moles/Vol] 23 mmol/L Normal 22-30 [facility] Comment on above: Order Comment: Speci men Type: BLOOD SPECIMENOrdering Facility: [facility] Address: [facility] [place] [id number] Performed By: #### 1 [address]12[address], ####[facility] MILLTOWNCLIA [id number] [place] [address] [place] Creatinine [Mass/Vol] 1.30 mg/dL High 0.73-1.22 [facility] Comment on above: Order Comment: Speci men Type: BLOOD SPECIMENOrdering Facility: [facility] Address: [facility] [place] [id number] Performed By: #### 1 9123-9, 67417-6 ####[facility] CENTERNCLIA [id number] [place] [address] [place] eGFRcr SerPlBld CKD-EPI 2020 60 mL/min/1.73m??? Normal >=60 [facility] Comment on above: Order Comment: Fidelina murillo Type: BLOOD SPECIMENOrdering Facility: [facility] Address: [address] [place] [address] Result Comment: Rekha mated Glomerular Filtration Rate (eGFR) is calculated using the 2020 CKD-EPI creatinine equation. This equation utilizes serum creatinine, sex, and age as parameters. The creatinine assay has traceable calibration to isotope dilution-mass spectrometry. Refer to KDIGO guidelines for clinical interpretation. In patients with unstable renal function, e.g. those with acute kidney injury, the eGFR may not accurately reflect actual GFR. Performed By: #### 1 9123-9, 39309-6 ####[facility]OSPITALLIA [id number] [place] [address] [place] Glucose [Mass/Vol] 101 mg/dL High 74-[address] [facility] Comment on above: Order Comment: Fidelina murillo Type: BLOOD SPECIMENOrdering Facility: [facility] Address: [address] [place] [address] Result Comment: The [place] [employer] (ADA) provides guidance for cutoff values for fasting glucose and random glucose. The ADA defines fasting as no caloric intake for at least 8 hours. Fasting plasma glucose results between 100 to 125 mg/dL indicate increased risk for diabetes (prediabetes).Fasting plasma glucose results greater than or equal to 126 mg/dL meet the criteria for diagnosis of diabetes. In the absence of unequivocal hyperglycemia, results should be confirmed by repeat testing. In a patient with classic symptoms of hyperglycemia or hyperglycemic crisis, random plasma glucose results greater than or equal to 200 mg/dL meet the criteria for diagnosis of diabetes.Reference: Standards of Medical Care in Diabetes 2016, [place] [employer]. Diabetes Care. 2016.39(Suppl 1). Performed By: #### 1 9123-9, 97544-1 ####[facility]PITALLIA [id number] [place] [address] [place] Potassium [Moles/Vol] 3.8 mmol/L Normal 3.7-5.1 [facility] Comment on above: Order Comment: Speci men Type: BLOOD SPECIMENOrdering Facility: [facility] Address: [address] [place] [address] Performed By: #### 1 9123-9, 87164-7 ####[facility] MILLBERLINWATIF [id number] [place] [address] [place] Protein [Mass/Vol] 7.3 g/dL Normal 6.3-8.[address] [facility] Comment on above: Order Comment: Speci men Type: BLOOD SPECIMENOrdering Facility: [facility] Address: [address] [place] [address] Performed By: #### 1 9123-9, 00751-2 ####[facility] CENTERJUAN [id number] [place] [address] [place] Sodium [Moles/Vol] 135 mmol/L Low 136-[address] [facility] Comment on above: Order Comment: Speci men Type: BLOOD SPECIMENOrdering Facility: [facility] Address: [address] [place] [address] Performed By: #### 1 9123-9, 24880-3 ####[facility] MILLJUAN [id number] [place] [address] [place] Urea nitrogen [Mass/Vol] 24 mg/dL Normal 9-24 [facility] Comment on above: Order Comment: Speci men Type: BLOOD SPECIMENOrdering Facility: [facility] Address: [address] [place] [address] Performed By: #### 1 9123-9, 22661-3 ####[facility] CENTERWNCLIA [id number] [place] [address] [place] Magnesium SerPl-mCncon 12-30 Magnesium [Mass/Vol] 2.0 mg/dL Normal 1.7-2.3 [facility] Comment on above: Order Comment: Speci men Type: BLOOD SPECIMENOrdering Facility: [facility] Address: [address] [place] [address] Performed By: #### 1 9123-9, 53939-1 ####[facility] [id number] [place] [id number] [place] CNPNon 12-19-2024 CNPN Normal [facility] CNPNon 12-16-2024 CNPN Normal [facility] GLUCOSE, BLOOD (POC)on 12-16 Glucose [Mass/Vol] 126 mg/dL Abnormal 74 - 99 mg/dL [facility] Comment on above: Location:[address], [address] The Accu-Chek Inform II glucose meter has not been approved for testing on patients receiving intensive medical intervention or therapy and results from this point of care glucose test should not be used for patient management decisions in these cases. Inaccurate results may also occur from other interfering factors, such as N-acetylcysteine (blood concentrations of greater than 5mg/dL), galactose, extremes of hematocrit (<10 or >65), or high doses of ascorbic acid (vitamin C) greater than 3mg/dL. Consider alternate testing mechanisms (e.g. core lab, blood gas instrument) in the above situations. Interpretation and review of laboratory results Abnormal [facility] NM PET/CT SKULL-THIGH SUBQon 12-16-2024 NM PET/CT SKULL-THIGH SUBQ * * *Final Report* * * DATE OF EXAM: Dec 16 2024 8:41AM MDP 0063 - NM PET/CT SKULL-THIGH SUBQ / PROCEDURE REASON: multiple diagnoses * * * * Physician Interpretation * * * * EXAMINATION: BODY FDG PET-CT CLINICAL HISTORY: History of metastatic small cell lung cancer status post chemotherapy EXAM CATEGORY: Subsequent treatment strategy. TECHNIQUE: Radiopharmaceutical was administered intravenously followed by PET imaging from the eyes to thighs. Free breathing, low dose CT of the same body region was acquired without IV contrast for attenuation correction and anatomic localization. Unenhanced imaging is limited for the evaluation of some pathology and the acquired CT was not designed to produce diagnostic CT scan quality. Physiologic/non-pathol ogic uptake in some body regions could confound or obscure some pathology. * CT Dose-Length Product (DLP): 762 mGy*cm * CT Dose Reduction Employed: Yes * Blood glucose: 126 mg/dL * Injection site: Right Forearm-Antecubital * Injected activity: 19 mCi * Uptake Time: 63 minutes * Radiopharmaceutical: P97-[id number] (FDG) COMPARISON: No previous FDG PET/CT available CORRELATION: CT dated 09/21/2024 RESULT: REFERENCES: FDG uptake is used as a surrogate marker for glucose metabolism. All reported standardized uptake values represent maximum SUV (SUVmax) per body weight, unless otherwise specified. SUV reference values, as follows: * Blood Pool (Descending Aorta): SUVmax 2.2 * Background Liver: SUVmax 2.9; SUVmean 2.6 Localizer Images: No significant findings. HEAD AND NECK: Head: No radiotracer avid lesion or mass effect in the imaged intracranial compartment. Aerodigestive Tract: No radiotracer avid lesion. Lymph Nodes: No radiotracer avid lymphadenopathy. Neck Soft Tissues: No radiotracer avid thyroid nodule. CHEST: Lungs and Pleura: Persistent metabolic activity in the RIGHT hilar soft tissue fullness SUV max of 8.9 cm to prior SUV max of 8.6. Resolution of previously seen RIGHT lower lobe consolidation/nodular opacity. No pleural effusion. Lymph Nodes: No radiotracer avid lymphadenopathy. Mediastinum: No radiotracer avid mass. Cardiovascular: Blood pool activity. No pericardial effusion. Chest Wall: No radiotracer avid soft tissue lesion. ABDOMEN AND PELVIS: Hepatobiliary: Interval resolution of some of the previously seen metabolically active lesions for example resolution of the previously seen lesion at the dome however there are persistent bilobar smaller lesions with the most dominant lesion along the RIGHT most medial liver lesion with SUV max of 6.9. Spleen: No radiotracer avid lesion. Pancreas: No radiotracer avid lesion. Adrenals: No radiotracer avid nodule. Urinary Tract: Physiologic radiotracer excretion in the renal collecting systems and urinary bladder. GI Tract: No radiotracer avid lesion. No bowel dilation. Peritoneum: No radiotracer avid lesion. No ascites. Lymph Nodes: Persistent Metabolically active periportal lymphadenopathy SUV max of 12.2 and portacaval lymphadenopathy with SUV max of 12.1. Vasculature: Blood pool activity. Pelvic Organs: No radiotracer avid lesion. MUSCULOSKELETAL: Bones: No radiotracer avid lesion. Resolution of previously seen bone marrow lesions. Soft Tissues: No radiotracer avid lesion. IMPRESSION: PRIMARY DISEASE SITE/GINA DISEASE: * Persistent metabolic activity in the RIGHT hilar soft tissue fullness. * Resolution of previously seen RIGHT lower lobe consolidation/nodular opacity. METASTATIC DISEASE: * Overall decrease in metabolically active hepatic lesions. * Persistent metabolically intra-abdominal lymphadenopathy. * Resolution of previously seen bone marrow lesions. Physician Scientist: ANGEL Transcribe Date/Time: Dec 16 2024 9:56A Dictated by : NGUYEN LOWE MD This examination was interpreted and the report reviewed and electronically signed by: NGUYEN LOWE MD on Dec 16 2024 10:21AM EST [id number] [facility] PET+CT Guidance for localiza tion of tumor of Skull base to mid-thigh-- W 18F-FDG Janet 12-16-2024 IMPRESSION: PRIMARY DISEASE SITE/GINA DISEASE: * Persistent metabolic activity in the RIGHT hilar soft tissue fullness. * Resolution of previously seen RIGHT lower lobe consolidation/nodular opacity. METASTATIC DISEASE: * Overall decrease in metabolically active hepatic lesions. * Persistent metabolically intra-abdominal lymphadenopathy. * Resolution of previously seen bone marrow lesions. Physician Scientist: [facility] HOSPITALRajesh Transcribe Date/Time: Dec 16 2024 9:56A Dictated by : NGUYEN LOWE MD This examination was interpreted and the report reviewed and electronically signed by: NGUYEN LOWE MD on Dec 16 2024 10:21AM [facility] * * *Final Report* * * DATE OF EXAM: Dec 16 2024 8:41AM MDP 0063 - NM PET/CT SKULL-THIGH SUBQ / PROCEDURE REASON: multiple diagnoses * * * * Physician Interpretation * * * * EXAMINATION: BODY FDG PET-CT CLINICAL HISTORY: History of metastatic small cell lung cancer status post chemotherapy EXAM CATEGORY: Subsequent treatment strategy. TECHNIQUE: Radiopharmaceutical was administered intravenously followed by PET imaging from the eyes to thighs. Free breathing, low dose CT of the same body region was acquired without IV contrast for attenuation correction and anatomic localization. Unenhanced imaging is limited for the evaluation of some pathology and the acquired CT was not designed to produce diagnostic CT scan quality. Physiologic/non-pathol ogic uptake in some body regions could confound or obscure some pathology. * CT Dose-Length Product (DLP): 762 mGy*cm * CT Dose Reduction Employed: Yes * Blood glucose: 126 mg/dL * Injection site: Right Forearm-Antecubital * Injected activity: 19 mCi * Uptake Time: 63 minutes * Radiopharmaceutical: R97-Yslouxvmfgqggwlfqa (FDG) COMPARISON: No previous FDG PET/CT available CORRELATION: CT dated 09/21/2024 RESULT: REFERENCES: FDG uptake is used as a surrogate marker for glucose metabolism. All reported standardized uptake values represent maximum SUV (SUVmax) per body weight, unless otherwise specified. SUV reference values, as follows: * Blood Pool (Descending Aorta): SUVmax 2.2 * Background Liver: SUVmax 2.9; SUVmean 2.6 Localizer Images: No significant findings. HEAD AND NECK: Head: No radiotracer avid lesion or mass effect in the imaged intracranial compartment. Aerodigestive Tract: No radiotracer avid lesion. Lymph Nodes: No radiotracer avid lymphadenopathy. Neck Soft Tissues: No radiotracer avid thyroid nodule. CHEST: Lungs & Pleura: Persistent metabolic activity in the RIGHT hilar soft tissue fullness SUV max of 8.9 cm to prior SUV max of 8.6. Resolution of previously seen RIGHT lower lobe consolidation/nodular opacity. No pleural effusion. Lymph Nodes: No radiotracer avid lymphadenopathy. Mediastinum: No radiotracer avid mass. Cardiovascular: Blood pool activity. No pericardial effusion. Chest Wall: No radiotracer avid soft tissue lesion. ABDOMEN AND PELVIS: Hepatobiliary: Interval resolution of some of the previously seen metabolically active lesions for example resolution of the previously seen lesion at the dome however there are persistent bilobar smaller lesions with the most dominant lesion along the RIGHT most medial liver lesion with SUV max of 6.9. Spleen: No radiotracer avid lesion. Pancreas: No radiotracer avid lesion. Adrenals: No radiotracer avid nodule. Urinary Tract: Physiologic radiotracer excretion in the renal collecting systems and urinary bladder. GI Tract: No radiotracer avid lesion. No bowel dilation. Peritoneum: No radiotracer avid lesion. No ascites. Lymph Nodes: Persistent Metabolically active periportal lymphadenopathy SUV max of 12.2 and portacaval lymphadenopathy with SUV max of 12.1. Vasculature: Blood pool activity. Pelvic Organs: No radiotracer avid lesion. MUSCULOSKELETAL: Bones: No radiotracer avid lesion. Resolution of previously seen bone marrow lesions. Soft Tissues: No radiotracer avid lesion. [facility] Provider, Kinga Chapmandiana morrison [place] - 12/16/2024 * * *Final Report* * * DATE OF EXAM: Dec 16 2024 8:41AM MDP 0063 - NM PET/CT SKULL-THIGH SUBQ / PROCEDURE REASON: multiple diagnoses * * * * Physician Interpretation * * * * EXAMINATION: BODY FDG PET-CT CLINICAL HISTORY: History of metastatic small cell lung cancer status post chemotherapy EXAM CATEGORY: Subsequent treatment strategy. TECHNIQUE: Radiopharmaceutical was administered intravenously followed by PET imaging from the eyes to thighs. Free breathing, low dose CT of the same body region was acquired without IV contrast for attenuation correction and anatomic localization. Unenhanced imaging is limited for the evaluation of some pathology and the acquired CT was not designed to produce diagnostic CT scan quality. Physiologic/non-pathol ogic uptake in some body regions could confound or obscure some pathology. * CT Dose-Length Product (DLP): 762 mGy*cm * CT Dose Reduction Employed: Yes * Blood glucose: 126 mg/dL * Injection site: Right Forearm-Antecubital * Injected activity: 19 mCi * Uptake Time: 63 minutes * Radiopharmaceutical: R94-Jnvrrazkglfjvzcnam (FDG) COMPARISON: No previous FDG PET/CT available CORRELATION: CT dated 09/21/2024 RESULT: REFERENCES: FDG uptake is used as a surrogate marker for glucose metabolism. All reported standardized uptake values represent maximum SUV (SUVmax) per body weight, unless otherwise specified. SUV reference values, as follows: * Blood Pool (Descending Aorta): SUVmax 2.2 * Background Liver: SUVmax 2.9; SUVmean 2.6 Localizer Images: No significant findings. HEAD AND NECK: Head: No radiotracer avid lesion or mass effect in the imaged intracranial compartment. Aerodigestive Tract: No radiotracer avid lesion. Lymph Nodes: No radiotracer avid lymphadenopathy. Neck Soft Tissues: No radiotracer avid thyroid nodule. CHEST: Lungs & Pleura: Persistent metabolic activity in the RIGHT hilar soft tissue fullness SUV max of 8.9 cm to prior SUV max of 8.6. Resolution of previously seen RIGHT lower lobe consolidation/nodular opacity. No pleural effusion. Lymph Nodes: No radiotracer avid lymphadenopathy. Mediastinum: No radiotracer avid mass. Cardiovascular: Blood pool activity. No pericardial effusion. Chest Wall: No radiotracer avid soft tissue lesion. ABDOMEN AND PELVIS: Hepatobiliary: Interval resolution of some of the previously seen metabolically active lesions for example resolution of the previously seen lesion at the dome however there are persistent bilobar smaller lesions with the most dominant lesion along the RIGHT most medial liver lesion with SUV max of 6.9. Spleen: No radiotracer avid lesion. Pancreas: No radiotracer avid lesion. Adrenals: No radiotracer avid nodule. Urinary Tract: Physiologic radiotracer excretion in the renal collecting systems and urinary bladder. GI Tract: No radiotracer avid lesion. No bowel dilation. Peritoneum: No radiotracer avid lesion. No ascites. Lymph Nodes: Persistent Metabolically active periportal lymphadenopathy SUV max of 12.2 and portacaval lymphadenopathy with SUV max of 12.1. Vasculature: Blood pool activity. Pelvic Organs: No radiotracer avid lesion. MUSCULOSKELETAL: Bones: No radiotracer avid lesion. Resolution of previously seen bone marrow lesions. Soft Tissues: No radiotracer avid lesion. IMPRESSION IMPRESSION: PRIMARY DISEASE SITE/GINA DISEASE: * Persistent metabolic activity in the RIGHT hilar soft tissue fullness. * Resolution of previously seen RIGHT lower lobe consolidation/nodular opacity. METASTATIC DISEASE: * Overall decrease in metabolically active hepatic lesions. * Persistent metabolically intra-abdominal lymphadenopathy. * Resolution of previously seen bone marrow lesions. Physician Scientist: [facility] Transcribe Date/Time: Dec 16 2024 9:56A Dictated by : NGUYEN LOWE MD This examination was interpreted and the report reviewed and electronically signed by: NGUYEN LOWE MD on Dec 16 2024 10:21AM EST [facility] Radiology Study observation (narrative) [facility] PET+CT Guidance for localiza tion of tumor of Skull base to mid-thigh-- W 18F-FDG IVOrdered By: Ccf Provider on 12-16-2024 [facility] CNPNon 12-13-2024 CNPN Normal [facility] CNPNon 12-09-2024 CNPN Normal [facility] CNPNon 12-05-2024 CNPN Normal [facility] CBC W Auto Differential pane l (Bld)on 12-03-2024 Basophils (Bld) [#/Vol] 0.05 10*3/uL Normal <0.11 [facility] Comment on above: Order Comment: Speci men Type: BLOOD SPECIMENOrdering Facility: [facility] Address: [address] [place] [address] Performed By: #### 5 7021-8 ####[facility] CENTERWTNLIA [id number] [place] [address] [place] Basophils/100 WBC (Bld) 0.5 % Normal [facility] Comment on above: Order Comment: Speci men Type: BLOOD SPECIMENOrdering Facility: [facility] Address: [address] [place] [address] Performed By: #### 5 7021-8 ####[facility] CENTERA [id number] [place] [address] [place] Differential cell count method Nom (Bld) Auto Normal [facility] Comment on above: Order Comment: Speci men Type: BLOOD SPECIMENOrdering Facility: [facility] Address: [address] [place] [address] Performed By: #### 5 7021-8 ####[facility]OSPITALLIA [id number] [place] [address] [place] Eosinophils (Bld) [#/Vol] 0.22 10*3/uL Normal <0.46 [facility] Comment on above: Order Comment: Speci men Type: BLOOD SPECIMENOrdering Facility: [facility] Address: [address] [place] [address] Performed By: #### 5 7021-8 ####[facility] HOSPITALLIA [id number] [place] [address] [place] Eosinophils/100 WBC (Bld) 2.0 % Normal [facility] Comment on above: Order Comment: Speci men Type: BLOOD SPECIMENOrdering Facility: [facility] Address: [address] [place] [address] Performed By: #### 5 7021-8 ####[facility] ORVILLERupertNCBOBBI [id number] [place] [address] [place] Erythrocyte distribution width (RBC) [Ratio] 15.3 % High 11.5-15.0 [facility] Comment on above: Order Comment: Speci men Type: BLOOD SPECIMENOrdering Facility: [facility] Address: [address] [place] [address] Performed By: #### 5 7021-8 ####[facility] CENTERNCRhonda [id number] [place] [address] [place] Hematocrit (Bld) [Volume fraction] 39.2 % Normal 39.0-51.0 [facility] Comment on above: Order Comment: Speci men Type: BLOOD SPECIMENOrdering Facility: [facility] Address: [address] [place] [address] Performed By: #### 5 7021-8 ####[facility] CENTERNCLIA [id number] [place] [address] [place] Hemoglobin (Bld) [Mass/Vol] 12.8 g/dL Low 13.0-17.0 [facility] Comment on above: Order Comment: Speci men Type: BLOOD SPECIMENOrdering Facility: [facility] Address: [address] [place] [address] Performed By: #### 5 7021-8 ####[facility] CENTERNCLIA [id number] [place] [address] [place] Immature granulocytes (Bld) [#/Vol] 0.10 10*3/uL High <0.10 [facility] Comment on above: Order Comment: Speci men Type: BLOOD SPECIMENOrdering Facility: [facility] Address: [address] [place] [address] Performed By: #### 5 7021-8 ####[facility] CENTERNCLIA [id number] [address] STATES [facility] Immature granulocytes/100 WBC (Bld) 0.9 % Normal [facility] Comment on above: Order Comment: Speci men Type: BLOOD SPECIMENOrdering Facility: [facility] Address: [address] [place] [address] Performed By: #### 5 7021-8 ####[facility] CENTERNCLIA [id number] [place] [address] [place] Lymphocytes (Bld) [#/Vol] 1.88 10*3/uL Normal 1.00-4.00 [facility] Comment on above: Order Comment: Speci men Type: BLOOD SPECIMENOrdering Facility: [facility] Address: [address] [place] [address] Performed By: #### 5 7021-8 ####[facility] CENTERNCLIA [id number] [address] [place] Lymphocytes/100 WBC (Bld) 17.2 % Normal [facility] Comment on above: Order Comment: Speci men Type: BLOOD SPECIMENOrdering Facility: [facility] Address: [address] [place] [address] Performed By: #### 5 7021-8 ####[facility]OSPITALLIA [id number] [place] [address] [place] MCH (RBC) [Entitic mass] 33.7 pg Normal 26.0-34.0 [facility] Comment on above: Order Comment: Speci men Type: BLOOD SPECIMENOrdering Facility: [facility] Address: [address] [place] [address] Performed By: #### 5 7021-8 ####[facility] HOSPITALLI [id number] [place] [address] [place] MCHC (RBC) [Mass/Vol] 32.7 g/dL Normal 30.5-36.0 [facility] Comment on above: Order Comment: Speci men Type: BLOOD SPECIMENOrdering Facility: [facility] Address: [address] [place] [address] Performed By: #### 5 7021-8 ####[facility] CENTERATIF [id number] [place] [address] [place] MCV (RBC) [Entitic vol] 103.2 fL High 80.0-100.0 C [facility] Comment on above: Order Comment: Speci men Type: BLOOD SPECIMENOrdering Facility: [facility] Address: [address] [place] [address] Performed By: #### 5 7021-8 ####[facility] CENTERLORENZOMOUNTAIN WEST [facility]ICAL [facility]ENTER [id number] [place] [address] [place] Monocytes (Bld) [#/Vol] 0.99 10*3/uL High <0.87 [facility] Comment on above: Order Comment: Speci men Type: BLOOD SPECIMENOrdering Facility: [facility] Address: [address] [place] [address] Performed By: #### 5 7021-8 ####[facility] CENTERA [id number] [place] [address] [place] Monocytes/100 WBC (Bld) 9.1 % Normal C [facility] Comment on above: Order Comment: Speci men Type: BLOOD SPECIMENOrdering Facility: [facility] Address: [address] [place] [address] Performed By: #### 5 7021-8 ####[facility]OSPITALLIA [id number] [place] [address] [place] Neutrophils (Bld) [#/Vol] 7.67 10*3/uL High 1.45-7.50 [facility] Comment on above: Order Comment: Speci men Type: BLOOD SPECIMENOrdering Facility: [facility] Address: [address] [place] [address] Performed By: #### 5 7021-8 ####[facility] [id number] [place] [address] [place] Neutrophils/100 WBC (Bld) 70.3 % Normal [facility] Comment on above: Order Comment: Speci men Type: BLOOD SPECIMENOrdering Facility: [facility] Address: [address] [place] [address] Performed By: #### 5 7021-8 ####[facility] [id number] [place] [address] [place] Nucleated RBC (Bld) [#/Vol] 10*3/uL Normal <0.01 [facility] Comment on above: Order Comment: Speci men Type: BLOOD SPECIMENOrdering Facility: [facility] Address: [address] [place] [address] Performed By: #### 5 7021-8 ####[facility] [id number] [place] [address] [place] Nucleated RBC/100 WBC (Bld) [Ratio] 0.0 /100 WBC Normal [facility] Comment on above: Order Comment: Speci men Type: BLOOD SPECIMENOrdering Facility: [facility] Address: [address] [place] [address] Performed By: #### 5 7021-8 ####[facility] [id number] [place] [address] [place] Platelet mean volume (Bld) [Entitic vol] 10.0 fL Normal 9.0-12.7 [facility] Comment on above: Order Comment: Speci men Type: BLOOD SPECIMENOrdering Facility: [facility] Address: [address] [place], [place] [address] Performed By: #### 5 7021-8 ####[facility] CENTERNCLIA [id number] [place] [address] [place] Platelets (Bld) [#/Vol] 260 10*3/uL Normal 150-400 [facility] Comment on above: Order Comment: Speci men Type: BLOOD SPECIMENOrdering Facility: [facility] Address: [address] [place], [place] [address] Performed By: #### 5 7021-8 ####[facility] CENTERNCLIA [id number] [place] [address] [place] RBC (Bld) [#/Vol] 3.80 10*6/uL Low 4.20-6.00 [facility] Comment on above: Order Comment: Speci men Type: BLOOD SPECIMENOrdering Facility: [facility] Address: [address] [place], [place] [address] Performed By: #### 5 7021-8 ####[facility] CENTERNCA [id number] [place] [address] [place] WBC (Bld) [#/Vol] 10.91 10*3/uL Normal 3.70-11.00 [facility] Comment on above: Order Comment: Speci men Type: BLOOD SPECIMENOrdering Facility: [facility] Address: [address] [place] [address] Performed By: #### 5 7021-8 ####[facility] CENTERNCLIA [id number] [place] [address] [place] CNOVSPon 12-03-2024 CNOVSP Normal [facility] Comprehensive metabolic 2000 panelon 12-03-2024 Albumin [Mass/Vol] 4.4 g/dL Normal 3.9-4.[address] [facility] Comment on above: Order Comment: Speci men Type: BLOOD SPECIMENOrdering Facility: [facility] Address: [address] [place] [address] Performed By: #### 1 9123-9, 46718-6 ####[facility] STACEY MILLTOWNCLIA [id number] [address] [place] ALP [Catalytic activity/Vol] 114 U/L High 38-113 [facility] Comment on above: Order Comment: Speci men Type: BLOOD SPECIMENOrdering Facility: [facility] Address: [address] [place] [address] Performed By: #### 1 9123-9, 76314-4 ####[facility] MILLTOWLORENZOLIA [id number] [place] [address] [place] ALT [Catalytic activity/Vol] 20 U/L Normal 10-54 [facility] Comment on above: Order Comment: Speci men Type: BLOOD SPECIMENOrdering Facility: [facility] Address: [address] [place] [address] Performed By: #### 1 9123-9, 09697-2 ####[facility] MILLBERLINWLORENZOLIA [id number] [place] [address] [place] Anion gap [Moles/Vol] 14 mmol/L Normal 8-15 [facility] Comment on above: Order Comment: Speci men Type: BLOOD SPECIMENOrdering Facility: [facility] Address: [address] [place] [address] Performed By: #### 1 9123-9, 56975-2 ####[facility] MILLTOWNCLIA [id number] [place] [address] [place] AST [Catalytic activity/Vol] 25 U/L Normal 14-40 [facility] Comment on above: Order Comment: Speci men Type: BLOOD SPECIMENOrdering Facility: [facility] Address: [address] [place] [address] Performed By: #### 1 9123-9, 01356-1 ####[facility] MILLTOWNCLIA [id number] [place] [address] [place] Bilirubin [Mass/Vol] 0.3 mg/dL Normal 0.2-1.3 [facility] Comment on above: Order Comment: Speci men Type: BLOOD SPECIMENOrdering Facility: [facility] Address: [address] [place] [address] Performed By: #### 1 9123-9, 83143-1 ####[facility] MILLTOWNCLIA [id number] [place] [address] [place] Calcium [Mass/Vol] 10.6 mg/dL High 8.5-10.[address] [facility] Comment on above: Order Comment: Speci men Type: BLOOD SPECIMENOrdering Facility: [facility] Address: [address] [place] [address] Performed By: #### 1 9123-9, 29061-0 ####[facility] CENTERWNCLIA [id number] [place] [address] [place] Chloride [Moles/Vol] 96 mmol/L Low 98-107 [facility] Comment on above: Order Comment: Speci men Type: BLOOD SPECIMENOrdering Facility: [facility] Address: [address] [place] [address] Performed By: #### 1 9123-9, 84492-8 ####[facility] MILLTOWNCLIA [id number] [place] [address] [place] CO2 [Moles/Vol] 24 mmol/L Normal 22-30 [facility] Comment on above: Order Comment: Speci men Type: BLOOD SPECIMENOrdering Facility: [facility] Address: [address] [place] [address] Performed By: #### 1 9123-9, 74425-7 ####[facility] MILLWNCLIA [id number] [place] [address] [place] Creatinine [Mass/Vol] 1.40 mg/dL High 0.73-1.22 [facility] Comment on above: Order Comment: Fidelina murillo Type: BLOOD SPECIMENOrdering Facility: [facility] Address: [address] [place] [address] Performed By: #### 1 9123-9, 44833-9 ####[facility] CENTERNCMOUNTAIN [facility] [id number] [place] [address] [place] eGFRcr SerPlBld CKD-EPI 2020 55 mL/min/1.73m??? Low >=60 [facility] Comment on above: Order Comment: Fidelina murillo Type: BLOOD SPECIMENOrdering Facility: [facility] Address: [address] [place] [address] Result Comment: Rekha mated Glomerular Filtration Rate (eGFR) is calculated using the 2020 CKD-EPI creatinine equation. This equation utilizes serum creatinine, sex, and age as parameters. The creatinine assay has traceable calibration to isotope dilution-mass spectrometry. Refer to KDIGO guidelines for clinical interpretation. In patients with unstable renal function, e.g. those with acute kidney injury, the eGFR may not accurately reflect actual GFR. Performed By: #### 1 9123-9, 00992-7 ####[facility] CENTERA [id number] [place] [address] [place] Glucose [Mass/Vol] 127 mg/dL High 74-[address] [facility] Comment on above: Order Comment: Fidelina murillo Type: BLOOD SPECIMENOrdering Facility: [facility] Address: [address] [place] [address] Result Comment: The [place] [employer] (ADA) provides guidance for cutoff values for fasting glucose and random glucose. The ADA defines fasting as no caloric intake for at least 8 hours. Fasting plasma glucose results between 100 to 125 mg/dL indicate increased risk for diabetes (prediabetes).Fasting plasma glucose results greater than or equal to 126 mg/dL meet the criteria for diagnosis of diabetes. In the absence of unequivocal hyperglycemia, results should be confirmed by repeat testing. In a patient with classic symptoms of hyperglycemia or hyperglycemic crisis, random plasma glucose results greater than or equal to 200 mg/dL meet the criteria for diagnosis of diabetes.Reference: Standards of Medical Care in Diabetes 2016, [place] [employer]. Diabetes Care. 2016.39(Suppl 1). Performed By: #### 1 9123-9, 96584-8 ####[facility] HOSPITALBOBBI [id number] [place] [address] [place] Potassium [Moles/Vol] 4.3 mmol/L Normal 3.7-5.1 [facility] Comment on above: Order Comment: Speci men Type: BLOOD SPECIMENOrdering Facility: [facility] Address: [address] [place] [address] Performed By: #### 1 9123-9, ####[facility] [id number] [place] [address] [place] Protein [Mass/Vol] 7.8 g/dL Normal 6.3-8.[address] [facility] Comment on above: Order Comment: Speci men Type: BLOOD SPECIMENOrdering Facility: [facility] Address: [address] [place] [address] Performed By: #### 1 9123-9, ####[facility] [id number] [place] [address] [place] Sodium [Moles/Vol] 134 mmol/L Low 136-[address] [facility] Comment on above: Order Comment: Speci men Type: BLOOD SPECIMENOrdering Facility: [facility] Address: [address] [place], [place] [address] Performed By: #### 1 9123-9, ####[facility] CENTERA [id number] [place] [address] [place] Urea nitrogen [Mass/Vol] 21 mg/dL Normal 9-24 [facility] Comment on above: Order Comment: Speci men Type: BLOOD SPECIMENOrdering Facility: [facility] Address: [address] [place], [place] [address] Performed By: #### 1 9123-9, 70108-2 ####[facility] ORVILLEPHILADELPHIANCLIRhonda [id number] [place] [address] [place] Magnesium SerPl-mCncon 12-03 Magnesium [Mass/Vol] 2.2 mg/dL Normal 1.7-2.3 [facility] Comment on above: Order Comment: Speci men Type: BLOOD SPECIMENOrdering Facility: [facility] Address: [address] [place], [place] [address] Performed By: #### 1 9123-9, 05010-9 ####[facility] ORVILLEPHILADELPHIANCLIA [id number] [address] [place] CNPNon 11-11-2024 CNPN Normal [facility] CNPNon 11-05-2024 CNPN Telephone (MEPRAD) ABDIRIZAK COLINDERS ([id number]) 1955 M Date Time Provider Department 11/05/24 [place] RENTERIA MEPELISABETH During your visit today, we recorded the following information about you: Corazon Renteria DO 11/05/2024 6:50 AM Signed Significant jump in serum Cr. Repeat BMP when gets PET 11/18. DO Piyush Calles Melanie, LPN 11/05/2024 8:17 AM Signed Patient is aware of needing repeat labs on 11/18/2024, and will have them done at [place] while there for PET. Appointment note updated. CASSANDRA Elkins Barbara, JEIMY 11/11/2024 2:59 PM Signed Was talking with pt for a question in Ana Martell's office when pt mentioned that he was getting repeat lab work in [place] on 11/18 when he gets his PET scan done. No order found. Per this note, Dr. Renteria wanted a repeat BMP for elevated creatinine level. Order pended and routed to Dr. Renteria. Brian Watts, RN 11/11/2024 2:59 PM Signed Addended by: BRIAN WATTS on: 11/11/2024 02:59 PM Modules accepted: Orders Corazon Renteria DO 11/11/2024 5:12 PM Signed Order filed. Thank you. Corazon Renteria DO 11/11/2024 5:12 PM Signed Addended by: CORAZON RENTERIA on: 11/11/2024 05:12 PM Modules accepted: Orders Queenie Bradley 11/26/2024 8:57 AM Signed Patient arrived and checked in for pet scan on 11/18, however, he must not have followed prep instructions per [place] tech and order has fallen off. Patient has been rescheduled for 12/16 and a new pet order needs placed. Michelle Lundberg LPN 11/26/2024 9:31 AM Addendum Order pended. Will wait to send to Dr. Renteria upon his return. Patient was supposed to have a repeat BMP on 11/18/2024. I contacted him and he will get in to have his labs done as soon as he can. CASSANDRA Elkins Melanie, LPN 11/26/2024 9:25 AM Signed Addended by: MICHELLE LUNDBERG on: 11/26/2024 09:25 AM Modules accepted: Corazon Jordan DO 12/01/2024 9:05 AM Signed Thank you. PET orders filed. 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 - naltrexone 50 mg tablet Take 1 tablet by mouth once daily. - metFORMIN ER (GLUCOPHAGE XR) 500 mg 24 hr tablet Take 2 tablets by mouth daily with breakfast. - tamsulosin (FLOMAX) 0.4 mg Take 1 capsule by mouth daily at bedtime. - cyclobenzaprine (FLEXERIL) 10 mg tablet Take 1 tablet by mouth two times a day as needed for muscle spasm. - loperamide (IMODIUM) 2 mg cap(s) Take 1 capsule by mouth four times a day as needed for diarrhea. - simvastatin (ZOCOR) 40 mg tablet TAKE 1 TABLET BY MOUTH EVERYDAY AT BEDTIME - levothyroxine (LEVOXYL) 50 mcg tablet Take 1 tablet by mouth once daily. Take on empty stomach. For Thyroid - buPROPion (WELLBUTRIN) 75 mg tablet Take 1 tablet by mouth two times a day. - ELIQUIS 5 mg tab(s) Take 1 tablet by mouth two times a day. - furosemide (LASIX) 40 mg tablet Take 1 tablet by mouth once daily. - erythromycin (ROMYCIN) 5 mg/gram (0.5 %) ophthalmic ointment Use 1 application in the left eye at bedtime as needed. - Magnesium Oxide 500 mg magnesium tab Take 1 tablet by mouth two times a day. - albuterol HFA (VENTOLIN HFA) 90 mcg/actuation inhaler Inhale 2 Puffs as instructed every 4 hours as needed for wheezing/shortness of breath. - Blood Pressure Monitor 1 Each two times a day. - prochlorperazine (COMPAZINE) 10 mg tablet Take 1 tablet by mouth every 6 hours as needed. - varenicline (CHANTIX) 1 mg tablet Take 1 tablet by mouth two times a day. - CPAP Initiate Auto PAP @ 5-20 cm of water with humidification. Mask (per patient preference) optional chin strap (if indicated) , filters, tubing, humidifier and lifetime supplies. - Blood Pressure Test Kit-Medium kit 1 Kit once daily. Problem List As Of Date 11/05/2024 Noted Resolved Major depressive disorder, recurrent episode (H*04/07/2005 Backache [M54.9] 04/07/2005 PAIN JOINT, KNEE [M25.569] 01/30/2006 PAIN JOINT, ANKLE [M25.579] 01/30/2006 Elevated blood pressure reading without diagn (more content not included)... Normal [facility] CBC W Auto Differential pane l (Bld)on 11-04-2024 Basophils (Bld) [#/Vol] 10*3/uL Normal <0.11 [facility]: Order Comment: Speci men Type: BLOOD SPECIMENOrdering Facility: [facility] Address: [address] [place] [address] Performed By: #### 5 7021-8 ####[facility] CENTERRhonda [id number] [place] [address] [place] Basophils/100 WBC (Bld) 0.3 % Normal [facility] Comment on above: Order Comment: Speci men Type: BLOOD SPECIMENOrdering Facility: [facility] Address: [address] [place] [address] Performed By: #### 5 7021-8 ####[facility] CENTERNCMICHELA [id number] [place] [address] [place] Differential cell count method Nom (Bld) Auto Normal [facility] Comment on above: Order Comment: Speci men Type: BLOOD SPECIMENOrdering Facility: [facility] Address: [address] [place] [address] Performed By: #### 5 7021-8 ####[facility] CENTERA [id number] [place] [address] [place] Eosinophils (Bld) [#/Vol] 0.14 10*3/uL Normal <0.46 [facility] Comment on above: Order Comment: Speci men Type: BLOOD SPECIMENOrdering Facility: [facility] Address: [address] [place] [address] Performed By: #### 5 7021-8 ####[facility] [id number] [place] [address] [place] Eosinophils/100 WBC (Bld) 1.8 % Normal [facility] Comment on above: Order Comment: Speci men Type: BLOOD SPECIMENOrdering Facility: [facility] Address: [address] [place] [address] Performed By: #### 5 7021-8 ####[facility] [id number] [place] [address] [place] Erythrocyte distribution width (RBC) [Ratio] 17.2 % High 11.5-15.0 [facility] Comment on above: Order Comment: Speci men Type: BLOOD SPECIMENOrdering Facility: [facility] Address: [address] [place] [address] Performed By: #### 5 7021-8 ####[facility]PITALLI [id number] [place] [address] [place] Hematocrit (Bld) [Volume fraction] 32.7 % Low 39.0-51.0 [facility] Comment on above: Order Comment: Speci men Type: BLOOD SPECIMENOrdering Facility: [facility] Address: [address] [place] [address] Performed By: #### 5 7021-8 ####[facility] CENTERNCLIA [id number] [place] [address] [place] Hemoglobin (Bld) [Mass/Vol] 10.7 g/dL Low 13.0-17.0 [facility] Comment on above: Order Comment: Speci men Type: BLOOD SPECIMENOrdering Facility: [facility] Address: [address] [place] [address] Performed By: #### 5 7021-8 ####[facility] [id number] [place] [address] [place] Immature granulocytes (Bld) [#/Vol] 0.09 10*3/uL Normal <0.10 [facility] Comment on above: Order Comment: Speci men Type: BLOOD SPECIMENOrdering Facility: [facility] Address: [address] [place] [address] Performed By: #### 5 7021-8 ####[facility] [id number] [place] [address] [place] Immature granulocytes/100 WBC (Bld) 1.2 % Normal [facility] Comment on above: Order Comment: Speci men Type: BLOOD SPECIMENOrdering Facility: [facility] Address: [address] [place] [address] Performed By: #### 5 7021-8 ####[facility] [id number] [place] [address] [place] Lymphocytes (Bld) [#/Vol] 1.27 10*3/uL Normal 1.00-4.00 [facility] Comment on above: Order Comment: Speci men Type: BLOOD SPECIMENOrdering Facility: [facility] Address: [address] [place] [address] Performed By: #### 5 7021-8 ####[facility] [id number] [place] [address] [place] Lymphocytes/100 WBC (Bld) 16.6 % Normal [facility] Comment on above: Order Comment: Speci men Type: BLOOD SPECIMENOrdering Facility: [facility] Address: [address] [place] [address] Performed By: #### 5 7021-8 ####[facility] ORVILLEBRADFORDLIA [id number] [place] [address] [place] MCH (RBC) [Entitic mass] 33.5 pg Normal 26.0-34.0 [facility] Comment on above: Order Comment: Speci men Type: BLOOD SPECIMENOrdering Facility: [facility] Address: [address] [place] [address] Performed By: #### 5 7021-8 ####[facility] [id number] [place] [address] [place] MCHC (RBC) [Mass/Vol] 32.7 g/dL Normal 30.5-36.0 [facility] Comment on above: Order Comment: Speci men Type: BLOOD SPECIMENOrdering Facility: [facility] Address: [address] [place] [address] Performed By: #### 5 7021-8 ####[facility] [id number] [place] [address] [place] MCV (RBC) [Entitic vol] 102.5 fL High 80.0-100.0 C [facility] Comment on above: Order Comment: Speci men Type: BLOOD SPECIMENOrdering Facility: [facility] Address: [address] [place] [address] Performed By: #### 5 7021-8 ####[facility] CENTERA [id number] [place] [address] [place] Monocytes (Bld) [#/Vol] 0.67 10*3/uL Normal <0.87 [facility] Comment on above: Order Comment: Speci men Type: BLOOD SPECIMENOrdering Facility: [facility] Address: [address] [place] [address] Performed By: #### 5 7021-8 ####[facility] CENTERA [id number] [place] [address] [place] Monocytes/100 WBC (Bld) 8.7 % Normal [facility] Comment on above: Order Comment: Speci men Type: BLOOD SPECIMENOrdering Facility: [facility] Address: [address] [place] [address] Performed By: #### 5 7021-8 ####[facility] CENTERA [id number] [place] [address] [place] Neutrophils (Bld) [#/Vol] 5.47 10*3/uL Normal 1.45-7.50 [facility] Comment on above: Order Comment: Speci men Type: BLOOD SPECIMENOrdering Facility: [facility] Address: [address] [place] [address] Performed By: #### 5 7021-8 ####[facility] [id number] [place] [address] [place] Neutrophils/100 WBC (Bld) 71.4 % Normal [facility] Comment on above: Order Comment: Speci men Type: BLOOD SPECIMENOrdering Facility: [facility] Address: [address] [place] [address] Performed By: #### 5 7021-8 ####[facility]ENTERA [id number] [place] [address] [place] Nucleated RBC (Bld) [#/Vol] 10*3/uL Normal <0.01 [facility] Comment on above: Order Comment: Speci men Type: BLOOD SPECIMENOrdering Facility: [facility] Address: [address] [place] [address] Performed By: #### 5 7021-8 ####[facility]OSPITALLIA [id number] [place] [address] [place] Nucleated RBC/100 WBC (Bld) [Ratio] 0.0 /100 WBC Normal [facility] Comment on above: Order Comment: Speci men Type: BLOOD SPECIMENOrdering Facility: [facility] Address: [address] [place] [address] Performed By: #### 5 7021-8 ####[facility] CENTERNCMICHEL [id number] [place] [address] [place] Platelet mean volume (Bld) [Entitic vol] 9.8 fL Normal 9.0-12.7 [facility] Comment on above: Order Comment: Speci men Type: BLOOD SPECIMENOrdering Facility: [facility] Address: [address] [place] [address] Performed By: #### 5 7021-8 ####[facility] [id number] [place] [address] [place] Platelets (Bld) [#/Vol] 242 10*3/uL Normal 150-400 [facility] Comment on above: Order Comment: Speci men Type: BLOOD SPECIMENOrdering Facility: [facility] Address: [address] [place] [address] Performed By: #### 5 7021-8 ####[facility]ENTERNCMOUNTAIN [facility] [id number] [place] [address] [place] RBC (Bld) [#/Vol] 3.19 10*6/uL Low 4.20-6.00 [facility] Comment on above: Order Comment: Speci men Type: BLOOD SPECIMENOrdering Facility: [facility] Address: [address] [place] [address] Performed By: #### 5 7021-8 ####[facility] [id number] [place] [address] [place] WBC (Bld) [#/Vol] 7.66 10*3/uL Normal 3.70-11.00 [facility] Comment on above: Order Comment: Speci men Type: BLOOD SPECIMENOrdering Facility: [facility] Address: [address] [place], [place] [address] Performed By: #### 5 7021-8 ####[facility] CENTERNCA [id number] [place] [address] [place] CNOVSPon 11-04-2024 CNOVSP Normal [facility] Comprehensive metabolic 2000 panelon 11-04-2024 Albumin [Mass/Vol] 4.1 g/dL Normal 3.9-4.[address] [facility] Comment on above: Order Comment: Speci men Type: BLOOD SPECIMENOrdering Facility: [facility] Address: [address] [place] [address] Performed By: #### 1 9123-9, 10862-6 ####[facility]ENTERNCMOUNTAIN [facility] [id number] [place] [address] [place] ALP [Catalytic activity/Vol] 95 U/L Normal 38-113 [facility] Comment on above: Order Comment: Speci men Type: BLOOD SPECIMENOrdering Facility: [facility] Address: [address] [place] [address] Performed By: #### 1 9123-9, 80720-7 ####[facility] CENTERNCLIA [id number] [place] [address] [place] ALT [Catalytic activity/Vol] 16 U/L Normal 10-54 [facility] Comment on above: Order Comment: Speci men Type: BLOOD SPECIMENOrdering Facility: [facility] Address: [address] [place] [address] Performed By: #### 1 9123-9, 76931-7 ####[facility] CENTERNCA [id number] [place] [address] [place] Anion gap [Moles/Vol] 13 mmol/L Normal 8-15 [facility] Comment on above: Order Comment: Speci men Type: BLOOD SPECIMENOrdering Facility: [facility] Address: [address] [place] [address] Performed By: #### 1 9123-9, 62405-8 ####[facility] KANDYNCBOBBI [id number] [place] [address] [place] AST [Catalytic activity/Vol] 19 U/L Normal 14-40 [facility] Comment on above: Order Comment: Speci men Type: BLOOD SPECIMENOrdering Facility: [facility] Address: [address] [place] [address] Performed By: #### 1 9123-9, 72540-4 ####[facility] ORVILLEPHILADELPHIANCBOBBI [id number] [place] [address] [place] Bilirubin [Mass/Vol] 0.4 mg/dL Normal 0.2-1.3 [facility] Comment on above: Order Comment: Speci men Type: BLOOD SPECIMENOrdering Facility: [facility] Address: [address] [place] [address] Performed By: #### 1 9123-9, 30301-1 ####[facility] ORVILLEPHILADELPHIALORENZOMICHELA [id number] [place] [address] [place] Calcium [Mass/Vol] 8.8 mg/dL Normal 8.5-10.[address] [facility] Comment on above: Order Comment: Speci men Type: BLOOD SPECIMENOrdering Facility: [facility] Address: [address] [place] [address] Performed By: #### 1 9123-9, 02754-8 ####[facility] CENTERNCLIA [id number] [place] [address] [place] Chloride [Moles/Vol] 102 mmol/L Normal 98-107 [facility] Comment on above: Order Comment: Speci men Type: BLOOD SPECIMENOrdering Facility: [facility] Address: [address] [place] [address] Performed By: #### 1 9123-9, 06942-4 ####[facility] CENTERWNCLIA [id number] [place] [address] [place] CO2 [Moles/Vol] 23 mmol/L Normal 22-30 [facility] Comment on above: Order Comment: Speci men Type: BLOOD SPECIMENOrdering Facility: [facility] Address: [address] [place] [address] Performed By: #### 1 9123-9, 19024-7 ####[facility] CENTERNCLIA [id number] [place] [address] [place] Creatinine [Mass/Vol] 1.51 mg/dL High 0.73-1.22 [facility] Comment on above: Order Comment: Speci men Type: BLOOD SPECIMENOrdering Facility: [facility] Address: [address] [place] [address] Performed By: #### 1 9123-9, ####[facility]PITALLIA [id number] [place] [address] [place] Creatinine and Glomerular filtration rate.predicted panel (S/P/Bld) 50 mL/min/1.73m??? Low >=60 [facility] Comment on above: Order Comment: Speci men Type: BLOOD SPECIMENOrdering Facility: [facility] Address: [address] [place] [address] Result Comment: Rekha mated Glomerular Filtration Rate (eGFR) is calculated using the 2020 CKD-EPI creatinine equation. This equation utilizes serum creatinine, sex, and age as parameters. The creatinine assay has traceable calibration to isotope dilution-mass spectrometry. Refer to KDIGO guidelines for clinical interpretation. In patients with unstable renal function, e.g. those with acute kidney injury, the eGFR may not accurately reflect actual GFR. Performed By: #### 1 9123-9, 04734-4 ####[facility] CENTERNCLIA [id number] [place] [address] [place] Glucose [Mass/Vol] 144 mg/dL High 74-[address] [facility] Comment on above: Order Comment: Speci men Type: BLOOD SPECIMENOrdering Facility: [facility] Address: [address] [place], [place] [address] Result Comment: The [place] [employer] (ADA) provides guidance for cutoff values for fasting glucose and random glucose. The ADA defines fasting as no caloric intake for at least 8 hours. Fasting plasma glucose results between 100 to 125 mg/dL indicate increased risk for diabetes (prediabetes).Fasting plasma glucose results greater than or equal to 126 mg/dL meet the criteria for diagnosis of diabetes. In the absence of unequivocal hyperglycemia, results should be confirmed by repeat testing. In a patient with classic symptoms of hyperglycemia or hyperglycemic crisis, random plasma glucose results greater than or equal to 200 mg/dL meet the criteria for diagnosis of diabetes.Reference: Standards of Medical Care in Diabetes 2016, [place] [employer]. Diabetes Care. 2016.39(Suppl 1). Performed By: #### 1 9123-9, 82943-1 ####[facility] STACEY MILLBERLINWLORENZOLIRhonda [id number] [place] [address] [place] Potassium [Moles/Vol] 4.6 mmol/L Normal 3.7-5.1 [facility] Comment on above: Order Comment: Fidelina murillo Type: BLOOD SPECIMENOrdering Facility: [facility] Address: [address] [place], [place] [address] Performed By: #### 1 9123-9, 64338-6 ####[facility] MILLBERLINWNCLIA [id number] [place] [address] [place] Protein [Mass/Vol] 6.4 g/dL Normal 6.3-8.[address] [facility] Comment on above: Order Comment: Speci men Type: BLOOD SPECIMENOrdering Facility: [facility] Address: [address] [place], [place] [address] Performed By: #### 1 9123-9, 08933-3 ####[facility] MILLBERLINWLORENZOLIA [id number] [place] [address] [place] Sodium [Moles/Vol] 138 mmol/L Normal 136-[address] [facility] Comment on above: Order Comment: Speci men Type: BLOOD SPECIMENOrdering Facility: [facility] Address: [address] [place] [address] Performed By: #### 1 9123-9, 42531-5 ####[facility] ORVILLEPHILADELPHIALORENZOBOBBI [id number] [place] [address] [place] Urea nitrogen [Mass/Vol] 24 mg/dL Normal 9-24 [facility] Comment on above: Order Comment: Speci men Type: BLOOD SPECIMENOrdering Facility: [facility] Address: [address] [place] [address] Performed By: #### 1 9123-9, 20419-7 ####[facility]ENTERNCLIA [id number] [place] [address] [place] Magnesium SerPl-mCncon 11-04 Magnesium [Mass/Vol] 2.1 mg/dL Normal 1.7-2.3 [facility] Comment on above: Order Comment: Speci men Type: BLOOD SPECIMENOrdering Facility: [facility] Address: [address] [place] [address] Performed By: #### 1 9123-9, 20319-4 ####[facility] [id number] [place] [address] [place] CNPNon 10-28-2024 CNPN Normal [facility] CNPNon 10-22-2024 CNPN Normal [facility] CNOVon 10-15-2024 CNOV Normal [facility] CT ABD/PEL W IVCONon 025 CT ABD/PEL W IVCON Normal [facility] CT CHEST W IVCONon 5 CT CHEST W IVCON Normal [facility] CBC W Auto Differential pane l (Bld)on 10-07-2024 Basophils (Bld) [#/Vol] 0.05 10*3/uL Normal <0.11 [facility] Comment on above: Order Comment: Speci men Type: BLOOD SPECIMENOrdering Facility: [facility] Address: [address] [place] [address] Performed By: #### 5 7021-8 ####[facility] MILLWTNLIA [id number] [place] [address] [place] Basophils/100 WBC (Bld) 0.5 % Normal [facility] Comment on above: Order Comment: Speci men Type: BLOOD SPECIMENOrdering Facility: [facility] Address: [address] [place] [address] Performed By: #### 5 7021-8 ####[facility] [id number] [place] [address] [place] Differential cell count method Nom (Bld) Auto Normal [facility] Comment on above: Order Comment: Speci men Type: BLOOD SPECIMENOrdering Facility: [facility] Address: [address] [place] [address] Performed By: #### 5 7021-8 ####[facility]ENTERA [id number] [place] [address] [place] Eosinophils (Bld) [#/Vol] 0.15 10*3/uL Normal <0.46 [facility] Comment on above: Order Comment: Speci men Type: BLOOD SPECIMENOrdering Facility: [facility] Address: [address] [place] [address] Performed By: #### 5 7021-8 ####[facility]ENTERA [id number] [place] [address] [place] Eosinophils/100 WBC (Bld) 1.5 % Normal [facility] Comment on above: Order Comment: Speci men Type: BLOOD SPECIMENOrdering Facility: [facility] Address: [address] [place] [address] Performed By: #### 5 7021-8 ####[facility]ENTERNCLIA [id number] [place] [address] [place] Erythrocyte distribution width (RBC) [Ratio] 17.2 % High 11.5-15.0 [facility] Comment on above: Order Comment: Speci men Type: BLOOD SPECIMENOrdering Facility: [facility] Address: [address] [place] [address] Performed By: #### 5 7021-8 ####[facility]ENTERNCLIA [id number] [place] [address] [place] Hematocrit (Bld) [Volume fraction] 38.5 % Low 39.0-51.0 [facility] Comment on above: Order Comment: Speci men Type: BLOOD SPECIMENOrdering Facility: [facility] Address: [address] [place] [address] Performed By: #### 5 7021-8 ####[facility]ENTERNCLIA [id number] [place] [address] [place] Hemoglobin (Bld) [Mass/Vol] 13.0 g/dL Normal 13.0-17.0 [facility] Comment on above: Order Comment: Speci men Type: BLOOD SPECIMENOrdering Facility: [facility] Address: [address] [place] [address] Performed By: #### 5 7021-8 ####[facility]ALL[facility] [id number] [place] [address] [place] Immature granulocytes (Bld) [#/Vol] 0.10 10*3/uL High <0.10 [facility] Comment on above: Order Comment: Speci men Type: BLOOD SPECIMENOrdering Facility: [facility] Address: [address] [place] [address] Performed By: #### 5 7021-8 ####[facility] [id number] [place] [address] [place] Immature granulocytes/100 WBC (Bld) 1.0 % Normal [facility] Comment on above: Order Comment: Speci men Type: BLOOD SPECIMENOrdering Facility: [facility] Address: [address] [place] [address] Performed By: #### 5 7021-8 ####[facility] [id number] [place] [address] [place] Lymphocytes (Bld) [#/Vol] 1.39 10*3/uL Normal 1.00-4.00 [facility] Comment on above: Order Comment: Speci men Type: BLOOD SPECIMENOrdering Facility: [facility] Address: [address] [place] [address] Performed By: #### 5 7021-8 ####[facility] [id number] [place] [address] [place] Lymphocytes/100 WBC (Bld) 14.2 % Normal [facility] Comment on above: Order Comment: Speci men Type: BLOOD SPECIMENOrdering Facility: [facility] Address: [address] [place] [address] Performed By: #### 5 7021-8 ####[facility] [id number] [place] [address] [place] MCH (RBC) [Entitic mass] 32.6 pg Normal 26.0-34.0 [facility] Comment on above: Order Comment: Speci men Type: BLOOD SPECIMENOrdering Facility: [facility] Address: [address] [place] [address] Performed By: #### 5 7021-8 ####[facility] [id number] [place] [address] [place] MCHC (RBC) [Mass/Vol] 33.8 g/dL Normal 30.5-36.0 [facility] Comment on above: Order Comment: Speci men Type: BLOOD SPECIMENOrdering Facility: [facility] Address: [address] [place] [address] Performed By: #### 5 7021-8 ####[facility] [id number] [place] [address] [place] MCV (RBC) [Entitic vol] 96.5 fL Normal 80.0-100.0 [facility] Comment on above: Order Comment: Speci men Type: BLOOD SPECIMENOrdering Facility: [facility] Address: [address] [place] [address] Performed By: #### 5 7021-8 ####[facility] [id number] [place] [address] [place] Monocytes (Bld) [#/Vol] 0.73 10*3/uL Normal <0.87 [facility] Comment on above: Order Comment: Speci men Type: BLOOD SPECIMENOrdering Facility: [facility] Address: [address] [place] [address] Performed By: #### 5 7021-8 ####[facility]ERNCLIA [id number] [place] [address] [place] Monocytes/100 WBC (Bld) 7.4 % Normal [facility] Comment on above: Order Comment: Speci men Type: BLOOD SPECIMENOrdering Facility: [facility] Address: [address] [place] [address] Performed By: #### 5 7021-8 ####[facility]CL[facility] [id number] [place] [address] [place] Neutrophils (Bld) [#/Vol] 7.38 10*3/uL Normal 1.45-7.50 [facility] Comment on above: Order Comment: Speci men Type: BLOOD SPECIMENOrdering Facility: [facility] Address: [address] [place] [address] Performed By: #### 5 7021-8 ####[facility] ORVILLEWLORENZOLIA [id number] [address] Neutrophils/100 WBC (Bld) 75.4 % Normal [facility] Comment on above: Order Comment: Speci men Type: BLOOD SPECIMENOrdering Facility: [facility] Address: [address] [place] [address] Performed By: #### 5 7021-8 ####[facility]CL[facility] [id number] [place] [address] [place] Nucleated RBC (Bld) [#/Vol] 10*3/uL Normal <0.01 [facility] Comment on above: Order Comment: Speci men Type: BLOOD SPECIMENOrdering Facility: [facility] Address: [address] [place] [address] Performed By: #### 5 7021-8 ####[facility]ERNCLIA [id number] [place] [address] [place] Nucleated RBC/100 WBC (Bld) [Ratio] 0.0 /100 WBC Normal [facility] Comment on above: Order Comment: Speci men Type: BLOOD SPECIMENOrdering Facility: [facility] Address: [address] [place] [address] Performed By: #### 5 7021-8 ####[facility] [id number] [place] [address] [place] Platelet mean volume (Bld) [Entitic vol] 10.6 fL Normal 9.0-12.7 [facility] Comment on above: Order Comment: Speci men Type: BLOOD SPECIMENOrdering Facility: [facility] Address: [address] [place] [address] Performed By: #### 5 7021-8 ####[facility] [id number] [place] [address] [place] Platelets (Bld) [#/Vol] 230 10*3/uL Normal 150-400 [facility] Comment on above: Order Comment: Speci men Type: BLOOD SPECIMENOrdering Facility: [facility] Address: [address] [place] [address] Result Comment: No c lot detected. Performed By: #### 5 7021-8 ####[facility] CENTERRhonda [id number] [place] [address] [place] RBC (Bld) [#/Vol] 3.99 10*6/uL Low 4.20-6.00 [facility] Comment on above: Order Comment: Speci men Type: BLOOD SPECIMENOrdering Facility: [facility] Address: [address] [place] [address] Performed By: #### 5 7021-8 ####[facility] CENTERRhonda [id number] [place] [address] [place] WBC (Bld) [#/Vol] 9.80 10*3/uL Normal 3.70-11.00 [facility] Comment on above: Order Comment: Speci men Type: BLOOD SPECIMENOrdering Facility: [facility] Address: [address] [place] [address] Performed By: #### 5 7021-8 ####[facility] CENTERRhonda [id number] [place] [address] [place] CNOVSPon 10-07-2024 CNOVSP Normal [facility] Comprehensive metabolic 2000 panelon 10-07-2024 Albumin [Mass/Vol] 4.3 g/dL Normal 3.9-4.[address] [facility] Comment on above: Order Comment: Speci men Type: BLOOD SPECIMENOrdering Facility: [facility] Address: [address] [place] [address] Performed By: #### 1 9123-9, ####[facility] STACEY MILLTOWNCLIA [id number] [place] [address] [place] ALP [Catalytic activity/Vol] 98 U/L Normal 38-113 [facility] Comment on above: Order Comment: Speci men Type: BLOOD SPECIMENOrdering Facility: [facility] Address: [address] [place] [address] Performed By: #### 1 9123-9, ####[facility] MILLTOWNCLIA [id number] [place] [address] [place] ALT [Catalytic activity/Vol] 22 U/L Normal 10-54 [facility] Comment on above: Order Comment: Speci men Type: BLOOD SPECIMENOrdering Facility: [facility] Address: [address] [place] [address] Performed By: #### 1 9123-9, ####[facility] CENTERWNCLIA [id number] [place] [address] [place] Anion gap [Moles/Vol] 17 mmol/L High 8-15 [facility] Comment on above: Order Comment: Speci men Type: BLOOD SPECIMENOrdering Facility: [facility] Address: [address] [place] [address] Performed By: #### 1 9123-9, ####[facility] MILLTOWNCLIA [id number] [place] [address] [place] AST [Catalytic activity/Vol] 24 U/L Normal 14-40 [facility] Comment on above: Order Comment: Speci men Type: BLOOD SPECIMENOrdering Facility: [facility] Address: [address] [place] [address] Performed By: #### 1 9123-9, 88009-1 ####[facility] MILLWNCLIA [id number] [place] [address] [place] Bilirubin [Mass/Vol] 0.4 mg/dL Normal 0.2-1.3 [facility] Comment on above: Order Comment: Speci men Type: BLOOD SPECIMENOrdering Facility: [facility] Address: [address] [place] [address] Performed By: #### 1 9123-9, 83230-2 ####[facility] MILLTOWLORENZOLIA [id number] [place] [address] [place] Calcium [Mass/Vol] 9.7 mg/dL Normal 8.5-10.[address] [facility] Comment on above: Order Comment: Speci men Type: BLOOD SPECIMENOrdering Facility: [facility] Address: [address] [place] [address] Performed By: #### 1 9123-9, 35585-7 ####[facility] CENTERWMENDELA [id number] [place] [address] [place] Chloride [Moles/Vol] 99 mmol/L Normal 98-107 [facility] Comment on above: Order Comment: Speci men Type: BLOOD SPECIMENOrdering Facility: [facility] Address: [address] [place] [address] Performed By: #### 1 9123-9, 48447-7 ####[facility] CENTERWNCLIA [id number] [place] [address] [place] CO2 [Moles/Vol] 21 mmol/L Low 22-30 [facility] Comment on above: Order Comment: Speci men Type: BLOOD SPECIMENOrdering Facility: [facility] Address: [address] [place] [address] Performed By: #### 1 9123-9, 31456-7 ####[facility] MILLTOWNCLIA [id number] [place] [address] [place] Creatinine [Mass/Vol] 0.97 mg/dL Normal 0.73-1.22 [facility] Comment on above: Order Comment: Fidelina murillo Type: BLOOD SPECIMENOrdering Facility: [facility] Address: [address] [place] [address] Performed By: #### 1 9123-9, 61876-3 ####[facility] [id number] [place] [address] [place] Creatinine and Glomerular filtration rate.predicted panel (S/P/Bld) 85 mL/min/1.73m??? Normal >=60 [facility] Comment on above: Order Comment: Fidelina murillo Type: BLOOD SPECIMENOrdering Facility: [facility] Address: [address] [place] [address] Result Comment: Rekha mated Glomerular Filtration Rate (eGFR) is calculated using the 2020 CKD-EPI creatinine equation. This equation utilizes serum creatinine, sex, and age as parameters. The creatinine assay has traceable calibration to isotope dilution-mass spectrometry. Refer to KDIGO guidelines for clinical interpretation. In patients with unstable renal function, e.g. those with acute kidney injury, the eGFR may not accurately reflect actual GFR. Performed By: #### 1 9123-9, 75077-5 ####[facility] [id number] [place] [address] [place] Glucose [Mass/Vol] 208 mg/dL High 74-[address] [facility] Comment on above: Order Comment: Fidelina murillo Type: BLOOD SPECIMENOrdering Facility: [facility] Address: [address] [place] [address] Result Comment: The [place] Diabetes Association (ADA) provides guidance for cutoff values for fasting glucose and random glucose. The ADA defines fasting as no caloric intake for at least 8 hours. Fasting plasma glucose results between 100 to 125 mg/dL indicate increased risk for diabetes (prediabetes).Fasting plasma glucose results greater than or equal to 126 mg/dL meet the criteria for diagnosis of diabetes. In the absence of unequivocal hyperglycemia, results should be confirmed by repeat testing. In a patient with classic symptoms of hyperglycemia or hyperglycemic crisis, random plasma glucose results greater than or equal to 200 mg/dL meet the criteria for diagnosis of diabetes.Reference: Standards of Medical Care in Diabetes 2016, [place] [employer]. Diabetes Care. 2016.39(Suppl 1). Performed By: #### 1 9123-9, 10382-4 ####[facility] STACEY JACINTOGUSTABONCBOBBI [id number] [place] [address] [place] Potassium [Moles/Vol] 4.0 mmol/L Normal 3.7-5.1 [facility] Comment on above: Order Comment: Speci men Type: BLOOD SPECIMENOrdering Facility: [facility] Address: [address] [place] [address] Performed By: #### 1 9123-9, 21058-9 ####[facility] CENTERATIF [id number] [place] [address] [place] Protein [Mass/Vol] 7.2 g/dL Normal 6.3-8.[address] [facility] Comment on above: Order Comment: Speci men Type: BLOOD SPECIMENOrdering Facility: [facility] Address: [address] [place], [place] [address] Performed By: #### 1 9123-9, 93778-3 ####[facility] CENTERMENDELA [id number] [place] [address] [place] Sodium [Moles/Vol] 137 mmol/L Normal 136-[address] [facility] Comment on above: Order Comment: Speci men Type: BLOOD SPECIMENOrdering Facility: [facility] Address: [address] [place] [address] Performed By: #### 1 9123-9, 90655-8 ####[facility] CENTERNCLIA [id number] [place] [address] [place] Urea nitrogen [Mass/Vol] 18 mg/dL Normal 9-24 [facility] Comment on above: Order Comment: Speci men Type: BLOOD SPECIMENOrdering Facility: [facility] Address: [address] [place] [address] Performed By: #### 1 9123-9, 30967-6 ####[facility] MILLWNCLIA [id number] [place] [address] [place] Magnesium SerPl-mCncon 10-07 Magnesium [Mass/Vol] 1.5 mg/dL Low 1.7-2.3 [facility] Comment on above: Order Comment: Speci men Type: BLOOD SPECIMENOrdering Facility: [facility] Address: [address] [place] [address] Performed By: #### 1 9123-9, 50048-3 ####[facility] CENTERA [id number] [place] [address] [place] TSH SerPl-aCncon 10-07-2024 TSH Qn 0.740 m[IU]/L Normal 0.270-4.200 [facility] Comment on above: Order Comment: Speci men Type: BLOOD SPECIMENOrdering Facility: [facility] Address: [address] [place] [address] Performed By: #### 3 016-3 ####[facility] LABIA [id number] [place] [address] [place] Lipid 1996 panelon 5 Cholesterol [Mass/Vol] 162 mg/dL Normal <200 [facility] Comment on above: Order Comment: Speci men Type: BLOOD SPECIMENOrdering Facility: [facility] Address: [address] [place] [address] Result Comment: <200 mg/dL, Desirable 200-239 mg/dL, Borderline high>239 mg/dL, High Performed By: #### 2 4331-1 ####[facility] LABIA [id number] [place] [address] [place] AMERICAHCA [facility] [id number] [place] [address] [place] Cholesterol in HDL [Mass/Vol] 58 mg/dL Normal >39 [facility] Comment on above: Order Comment: Speci men Type: BLOOD SPECIMENOrdering Facility: [facility] Address: [address] [place] [address] Result Comment: 40-5 9 mg/dL, Acceptable>59 mg/dL, High: Negative risk factor for coronary heart disease<40 mg/dL, Low: Positive risk factor for coronary heart disease Performed By: #### 2 4331-1 ####[facility] LABCLIA [id number] [address] [id number] [address] [place] Cholesterol in LDL [Mass/Vol] 86 mg/dL Normal <100 [facility] Comment on above: Order Comment: Speci men Type: BLOOD SPECIMENOrdering Facility: [facility] Address: [address] [place] [address] Result Comment: <100 mg/dL, Optimal 100-129 mg/dL, Near optimal/above optimal 130-159 mg/dL, Borderline high 160-189 mg/dL, High>189 mg/dL, Very highSecondary prevention optimal LDL Cholesterol levels are recommended to be <70 mg/dLLDL cholesterol is calculated using the Holliday-NIH equation. Performed By: #### 2 4331-1 ####[facility] LABIA [id number] [address] [id number] [place] [address] [place] Cholesterol in LDL/Cholesterol in HDL [Mass ratio] 1.48 {ratio} Normal <2.54 [facility] Comment on above: Order Comment: Speci men Type: BLOOD SPECIMENOrdering Facility: [facility] Address: [address] [place] [address] Result Comment: Refe rence:1. National Cholesterol Education Program ATP III Guideline At-A-Glance Quick Desk Reference: National Heart, Lung, and Blood Triangle. National Institutes of Health. 2001: NIH Publication No. 01-3305.2. An International Atherosclerosis Society position paper: global recommendations for the management of dyslipidemia: executive summary, Atherosclerosis. 2014: 232(2):410-413. Performed By: #### 2 4331-1 ####[facility] LABCLIA [id number] [address] [id number] [place] [address] [place] Cholesterol in VLDL [Mass/Vol] 16 mg/dL Normal <30 [facility] Comment on above: Order Comment: Speci men Type: BLOOD SPECIMENOrdering Facility: [facility] Address: [address] [place] [address] Performed By: #### 2 4331-1 ####[facility] LABCLIA [id number] [address] [id number] [place] [address] [place] Cholesterol non HDL [Mass/Vol] 104 mg/dL Normal <130 [facility] Comment on above: Order Comment: Speci men Type: BLOOD SPECIMENOrdering Facility: [facility] Address: [address] [place] [address] Result Comment: <130 mg/dL, Optimal 130-159 mg/dL, Near optimal/above optimal 160-189 mg/dL, Borderline high 190-219 mg/dL, High>219 mg/dL, Very highSecondary prevention optimal non HDL Cholesterol levels are recommended to be <100 mg/dL Performed By: #### 2 4331-1 ####[facility] LABCLIA [id number] [address] [id number] [place] [address] [place] Cholesterol.total/Choles terol in HDL [Mass ratio] 2.79 {ratio} Normal <5.10 [facility] Comment on above: Order Comment: Speci men Type: BLOOD SPECIMENOrdering Facility: [facility] Address: [address] [place] [address] Performed By: #### 2 4331-1 ####[facility] LABCLIA [id number] [address] [id number] [place] [address] [place] FASTING TIME 10 hrs Normal [facility] Comment on above: Order Comment: Speci men Type: BLOOD SPECIMENOrdering Facility: [facility] Address: [address] [place] [address] Performed By: #### 2 4331-1 ####[facility] LABCLIA [id number] [address] [id number] [place] [address] [place] Triglyceride [Mass/Vol] 100 mg/dL Normal <150 [facility] Comment on above: Order Comment: Speci men Type: BLOOD SPECIMENOrdering Facility: [facility] Address: [address] [place] [address] Result Comment: <150 mg/dL, Normal 150-199 mg/dL, Borderline high 200-499 mg/dL, High>499 mg/dL, Very high Performed By: #### 2 4331-1 ####[facility] LABIA [id number] [id number] [place] [address] [place] CNPTOUTREACHon 09-10-2024 CNPTOUTREACH Normal [facility] CBC W Auto Differential pane l (Bld)on 09-09-2024 Basophils (Bld) [#/Vol] 0.05 10*3/uL Normal <0.11 [facility] Comment on above: Order Comment: Speci men Type: BLOOD SPECIMENOrdering Facility: [facility] Address: [address] [place] [address] Performed By: #### 5 7021-8 ####[facility] CENTERWTNLIA [id number] [place] [address] [place] Basophils/100 WBC (Bld) 0.5 % Normal [facility] Comment on above: Order Comment: Speci men Type: BLOOD SPECIMENOrdering Facility: [facility] Address: [address] [place] [address] Performed By: #### 5 7021-8 ####[facility] CENTERA [id number] [place] [address] [place] Differential cell count method Nom (Bld) Auto Normal [facility] Comment on above: Order Comment: Speci men Type: BLOOD SPECIMENOrdering Facility: [facility] Address: [address] [place] [address] Performed By: #### 5 7021-8 ####[facility] CENTERA [id number] [place] [address] [place] Eosinophils (Bld) [#/Vol] 0.12 10*3/uL Normal <0.46 [facility] Comment on above: Order Comment: Speci men Type: BLOOD SPECIMENOrdering Facility: [facility] Address: [address] [place] [address] Performed By: #### 5 7021-8 ####[facility] CENTERA [id number] [place] [address] [place] Eosinophils/100 WBC (Bld) 1.1 % Normal [facility] Comment on above: Order Comment: Speci men Type: BLOOD SPECIMENOrdering Facility: [facility] Address: [address] [place] [address] Performed By: #### 5 7021-8 ####[facility]ENTERNCLIA [id number] [place] [address] [place] Erythrocyte distribution width (RBC) [Ratio] 18.5 % High 11.5-15.0 [facility] Comment on above: Order Comment: Speci men Type: BLOOD SPECIMENOrdering Facility: [facility] Address: [address] [place] [address] Performed By: #### 5 7021-8 ####[facility] [id number] [place] [address] [place] Hematocrit (Bld) [Volume fraction] 42.0 % Normal 39.0-51.0 [facility] Comment on above: Order Comment: Speci men Type: BLOOD SPECIMENOrdering Facility: [facility] Address: [address] [place] [address] Performed By: #### 5 7021-8 ####[facility]OSPITALLI [id number] [place] [address] [place] Hemoglobin (Bld) [Mass/Vol] 13.7 g/dL Normal 13.0-17.0 [facility] Comment on above: Order Comment: Speci men Type: BLOOD SPECIMENOrdering Facility: [facility] Address: [address] [place] [address] Performed By: #### 5 7021-8 ####[facility]ITALLI [id number] [place] [address] [place] Immature granulocytes (Bld) [#/Vol] 0.09 10*3/uL Normal <0.10 [facility] Comment on above: Order Comment: Speci men Type: BLOOD SPECIMENOrdering Facility: [facility] Address: [address] [place] [address] Performed By: #### 5 7021-8 ####[facility] [id number] [place] [address] [place] Immature granulocytes/100 WBC (Bld) 0.8 % Normal [facility] Comment on above: Order Comment: Speci men Type: BLOOD SPECIMENOrdering Facility: [facility] Address: [address] [place] [address] Performed By: #### 5 7021-8 ####[facility] [id number] [place] [address] [place] Lymphocytes (Bld) [#/Vol] 1.28 10*3/uL Normal 1.00-4.00 [facility] Comment on above: Order Comment: Speci men Type: BLOOD SPECIMENOrdering Facility: [facility] Address: [address] [place] [address] Performed By: #### 5 7021-8 ####[facility]ERNCMOUNT[facility] [id number] [place] [address] [place] Lymphocytes/100 WBC (Bld) 11.9 % Normal [facility] Comment on above: Order Comment: Speci men Type: BLOOD SPECIMENOrdering Facility: [facility] Address: [address] [place] [address] Performed By: #### 5 7021-8 ####[facility] CENTERNCLI [id number] [place] [address] [place] MCH (RBC) [Entitic mass] 31.1 pg Normal 26.0-34.0 [facility] Comment on above: Order Comment: Speci men Type: BLOOD SPECIMENOrdering Facility: [facility] Address: [address] [place] [address] Performed By: #### 5 7021-8 ####[facility] CENTERNCLI [id number] [place] [address] [place] MCHC (RBC) [Mass/Vol] 32.6 g/dL Normal 30.5-36.0 [facility] Comment on above: Order Comment: Speci men Type: BLOOD SPECIMENOrdering Facility: [facility] Address: [address] [place] [address] Performed By: #### 5 7021-8 ####[facility]ENTERNCBOBBI [id number] [place] [address] [place] MCV (RBC) [Entitic vol] 95.5 fL Normal 80.0-100.0 [facility] Comment on above: Order Comment: Speci men Type: BLOOD SPECIMENOrdering Facility: [facility] Address: [address] [place] [address] Performed By: #### 5 7021-8 ####[facility]ERN[facility] [id number] [place] [address] [place] Monocytes (Bld) [#/Vol] 0.84 10*3/uL Normal <0.87 [facility] Comment on above: Order Comment: Speci men Type: BLOOD SPECIMENOrdering Facility: [facility] Address: [address] [place] [address] Performed By: #### 5 7021-8 ####[facility] CENTERNCLIA [id number] [place] [address] [place] Monocytes/100 WBC (Bld) 7.8 % Normal [facility] Comment on above: Order Comment: Speci men Type: BLOOD SPECIMENOrdering Facility: [facility] Address: [address] [place] [address] Performed By: #### 5 7021-8 ####[facility]ENTERNCLIA [id number] [place] [address] [place] Neutrophils (Bld) [#/Vol] 8.35 10*3/uL High 1.45-7.50 [facility] Comment on above: Order Comment: Speci men Type: BLOOD SPECIMENOrdering Facility: [facility] Address: [address] [place] [address] Performed By: #### 5 7021-8 ####[facility] ORVILLEWLORENZOLIA [id number] [place] [address] [place] Neutrophils/100 WBC (Bld) 77.9 % Normal [facility] Comment on above: Order Comment: Speci men Type: BLOOD SPECIMENOrdering Facility: [facility] Address: [address] [place] [address] Performed By: #### 5 7021-8 ####[facility]OSPITALLIA [id number] [place] [address] [place] Nucleated RBC (Bld) [#/Vol] 10*3/uL Normal <0.01 [facility] Comment on above: Order Comment: Speci men Type: BLOOD SPECIMENOrdering Facility: [facility] Address: [address] [place] [address] Performed By: #### 5 7021-8 ####[facility]ENTERA [id number] [place] [address] [place] Nucleated RBC/100 WBC (Bld) [Ratio] 0.0 /100 WBC Normal [facility] Comment on above: Order Comment: Speci men Type: BLOOD SPECIMENOrdering Facility: [facility] Address: [address] [place] [address] Performed By: #### 5 7021-8 ####[facility]ENTERNCLIA [id number] [place] [address] [place] Platelet mean volume (Bld) [Entitic vol] 10.1 fL Normal 9.0-12.7 [facility] Comment on above: Order Comment: Speci men Type: BLOOD SPECIMENOrdering Facility: [facility] Address: [address] [place] [address] Performed By: #### 5 7021-8 ####[facility]OSPITALLIA [id number] [place] [address] [place] Platelets (Bld) [#/Vol] 233 10*3/uL Normal 150-400 [facility] Comment on above: Order Comment: Speci men Type: BLOOD SPECIMENOrdering Facility: [facility] Address: [address] [place] [address] Performed By: #### 5 7021-8 ####[facility] ORVILLEARUNLIA [id number] [place] [address] [place] RBC (Bld) [#/Vol] 4.40 10*6/uL Normal 4.20-6.00 [facility] Comment on above: Order Comment: Speci men Type: BLOOD SPECIMENOrdering Facility: [facility] Address: [address] [place] [address] Performed By: #### 5 7021-8 ####[facility] EMERGENCYANDREW [id number] [place] [address] [place] WBC (Bld) [#/Vol] 10.73 10*3/uL Normal 3.70-11.00 [facility] Comment on above: Order Comment: Speci men Type: BLOOD SPECIMENOrdering Facility: [facility] Address: [address] [place] [address] Performed By: #### 5 7021-8 ####[facility] EMERGENCYGERRYA [id number] [place] [address] [place] CNOVSPon 09-09-2024 CNOVSP Normal [facility] Comprehensive metabolic 2000 panelon 09-09-2024 Albumin [Mass/Vol] 4.4 g/dL Normal 3.9-4.[address] [facility] Comment on above: Order Comment: Speci men Type: BLOOD SPECIMENOrdering Facility: [facility] Address: [address] [place] [address] Performed By: #### 1 9123-9, 78040-1 ####[facility] EMERGENCYANDREW [id number] [place] [address] [place] ALP [Catalytic activity/Vol] 99 U/L Normal 38-113 [facility] Comment on above: Order Comment: Speci men Type: BLOOD SPECIMENOrdering Facility: [facility] Address: [address] [place] [address] Performed By: #### 1 9123-9, 03034-6 ####[facility] CENTERLORENZOLIA [id number] [place] [address] [place] ALT [Catalytic activity/Vol] 18 U/L Normal 10-54 [facility] Comment on above: Order Comment: Speci men Type: BLOOD SPECIMENOrdering Facility: [facility] Address: [address] [place] [address] Performed By: #### 1 9123-9, 32431-5 ####[facility] CENTERLORENZOA [id number] [place] [address] [place] Anion gap [Moles/Vol] 10 mmol/L Normal 8-15 [facility] Comment on above: Order Comment: Speci men Type: BLOOD SPECIMENOrdering Facility: [facility] Address: [address] [place] [address] Performed By: #### 1 9123-9, 31921-0 ####[facility] CENTERMENDELA [id number] [place] [address] [place] AST [Catalytic activity/Vol] 22 U/L Normal 14-40 [facility] Comment on above: Order Comment: Speci men Type: BLOOD SPECIMENOrdering Facility: [facility] Address: [address] [place] [address] Performed By: #### 1 9123-9, 53120-2 ####[facility] CENTERNCLIA [id number] [place] [address] [place] Bilirubin [Mass/Vol] 0.6 mg/dL Normal 0.2-1.3 [facility] Comment on above: Order Comment: Speci men Type: BLOOD SPECIMENOrdering Facility: [facility] Address: [address] [place], [place] [address] Performed By: #### 1 9123-9, 23584-8 ####[facility] CENTERLORENZOLIA [id number] [place] [address] [place] Calcium [Mass/Vol] 10.3 mg/dL High 8.5-10.[address] [facility] Comment on above: Order Comment: Speci men Type: BLOOD SPECIMENOrdering Facility: [facility] Address: [address] [place] [address] Performed By: #### 1 9123-9, 37808-8 ####[facility] CENTERRhonda [id number] [place] [address] [place] Chloride [Moles/Vol] 95 mmol/L Low 98-107 [facility] Comment on above: Order Comment: Speci men Type: BLOOD SPECIMENOrdering Facility: [facility] Address: [address] [place] [address] Performed By: #### 1 9123-9, 12280-4 ####[facility] CENTERLORENZOLIA [id number] [place] [address] [place] CO2 [Moles/Vol] 30 mmol/L Normal 22-30 [facility] Comment on above: Order Comment: Speci men Type: BLOOD SPECIMENOrdering Facility: [facility] Address: [address] [place] [address] Performed By: #### 1 9123-9, ####[facility]OSPITALLIA [id number] [place] [address] [place] Creatinine [Mass/Vol] 1.14 mg/dL Normal 0.73-1.22 [facility] Comment on above: Order Comment: Speci men Type: BLOOD SPECIMENOrdering Facility: [facility] Address: [address] [place], [place] [address] Performed By: #### 1 9123-9, 82794-2 ####[facility] CENTERNCLIA [id number] [address] [place] Creatinine and Glomerular filtration rate.predicted panel (S/P/Bld) 70 mL/min/1.73m??? Normal >=60 [facility] Comment on above: Order Comment: Fidelina murillo Type: BLOOD SPECIMENOrdering Facility: [facility] Address: [address] [place] [address] Result Comment: Rekha mated Glomerular Filtration Rate (eGFR) is calculated using the 2020 CKD-EPI creatinine equation. This equation utilizes serum creatinine, sex, and age as parameters. The creatinine assay has traceable calibration to isotope dilution-mass spectrometry. Refer to KDIGO guidelines for clinical interpretation. In patients with unstable renal function, e.g. those with acute kidney injury, the eGFR may not accurately reflect actual GFR. Performed By: #### 1 9123-9, 16482-2 ####[facility] CENTERA [id number] [place] [address] [place] Glucose [Mass/Vol] 150 mg/dL High 74-[address] [facility] Comment on above: Order Comment: Fidelina murillo Type: BLOOD SPECIMENOrdering Facility: [facility] Address: [address] [place] [address] Result Comment: The [place] Diabetes Association (ADA) provides guidance for cutoff values for fasting glucose and random glucose. The ADA defines fasting as no caloric intake for at least 8 hours. Fasting plasma glucose results between 100 to 125 mg/dL indicate increased risk for diabetes (prediabetes).Fasting plasma glucose results greater than or equal to 126 mg/dL meet the criteria for diagnosis of diabetes. In the absence of unequivocal hyperglycemia, results should be confirmed by repeat testing. In a patient with classic symptoms of hyperglycemia or hyperglycemic crisis, random plasma glucose results greater than or equal to 200 mg/dL meet the criteria for diagnosis of diabetes.Reference: Standards of Medical Care in Diabetes 2016, [place] [employer]. Diabetes Care. 2016.39(Suppl 1). Performed By: #### 1 9123-9, 00369-0 ####[facility] STACEY ORVILLEANDREW [id number] [place] [address] [place] Potassium [Moles/Vol] 4.8 mmol/L Normal 3.7-5.1 [facility] Comment on above: Order Comment: Speci men Type: BLOOD SPECIMENOrdering Facility: [facility] Address: [address] [place] [address] Performed By: #### 1 9123-9, 77717-9 ####[facility] ORVILLEANDREW [id number] [place] [address] [place] Protein [Mass/Vol] 7.2 g/dL Normal 6.3-8.[address] [facility] Comment on above: Order Comment: Speci men Type: BLOOD SPECIMENOrdering Facility: [facility] Address: [address] [place] [address] Performed By: #### 1 9123-9, 91645-2 ####[facility] ORVILLEANDREW [id number] [place] [address] [place] Sodium [Moles/Vol] 135 mmol/L Low 136-[address] [facility] Comment on above: Order Comment: Speci men Type: BLOOD SPECIMENOrdering Facility: [facility] Address: [address] [place] [address] Performed By: #### 1 9123-9, 33986-2 ####[facility] ORVILLEBERLINATIF [id number] [place] [address] [place] Urea nitrogen [Mass/Vol] 24 mg/dL Normal 9-24 [facility] Comment on above: Order Comment: Speci men Type: BLOOD SPECIMENOrdering Facility: [facility] Address: [address] [place] [address] Performed By: #### 1 9123-9, 95604-7 ####[facility] MILLPHILADELPHIANCLIA [id number] [place] [address] [place] [facility] Magnesium SerPl-mCncon 09-09 Magnesium [Mass/Vol] 1.7 mg/dL Normal 1.7-2.3 [facility] Comment on above: Order Comment: Speci men Type: BLOOD SPECIMENOrdering Facility: [facility] Address: [address] [place] [address] Performed By: #### 1 9123-9, 15930-2 ####[facility] CENTERLORENZOLIA [id number] [place] [address] [place] CBC W Auto Differential pane l (Bld)on 08-12-2024 Basophils (Bld) [#/Vol] 0.05 10*3/uL Normal <0.11 [facility] Comment on above: Order Comment: Speci men Type: BLOOD SPECIMENOrdering Facility: [facility] Address: [address] [place] [address] Performed By: #### 5 7021-8 ####[facility] [id number] [address] STATES [facility] Basophils/100 WBC (Bld) 0.5 % Normal [facility] Comment on above: Order Comment: Speci men Type: BLOOD SPECIMENOrdering Facility: [facility] Address: [address] [place] [address] Performed By: #### 5 7021-8 ####[facility]OSPITALLIA [id number] [address] Differential cell count method Nom (Bld) Auto Normal [facility] Comment on above: Order Comment: Speci men Type: BLOOD SPECIMENOrdering Facility: [facility] Address: [address] [place] [address] Performed By: #### 5 7021-8 ####[facility] CENTERNCBOBBI [id number] [place] [address] [place] Eosinophils (Bld) [#/Vol] 0.15 10*3/uL Normal <0.46 [facility] Comment on above: Order Comment: Speci men Type: BLOOD SPECIMENOrdering Facility: [facility] Address: [address] [place] [address] Performed By: #### 5 7021-8 ####[facility] CENTERATIF [id number] [place] [address] [place] Eosinophils/100 WBC (Bld) 1.4 % Normal [facility] Comment on above: Order Comment: Speci men Type: BLOOD SPECIMENOrdering Facility: [facility] Address: [address] [place] [address] Performed By: #### 5 7021-8 ####[facility] [id number] [place] [address] [place] Erythrocyte distribution width (RBC) [Ratio] 16.4 % High 11.5-15.0 [facility] Comment on above: Order Comment: Speci men Type: BLOOD SPECIMENOrdering Facility: [facility] Address: [address] [place] [address] Performed By: #### 5 7021-8 ####[facility] CENTERNCLIA [id number] [place] [address] [place] Hematocrit (Bld) [Volume fraction] 38.8 % Low 39.0-51.0 [facility] Comment on above: Order Comment: Speci men Type: BLOOD SPECIMENOrdering Facility: [facility] Address: [address] [place] [address] Performed By: #### 5 7021-8 ####[facility] CENTERNCLIA [id number] [place] [address] [place] Hemoglobin (Bld) [Mass/Vol] 12.7 g/dL Low 13.0-17.0 [facility] Comment on above: Order Comment: Speci men Type: BLOOD SPECIMENOrdering Facility: [facility] Address: [address] [place] [address] Performed By: #### 5 7021-8 ####[facility]ENTERNCMOUNTAIN [facility] [id number] [place] [address] [place] Immature granulocytes (Bld) [#/Vol] 0.08 10*3/uL Normal <0.10 [facility] Comment on above: Order Comment: Speci men Type: BLOOD SPECIMENOrdering Facility: [facility] Address: [address] [place] [address] Performed By: #### 5 7021-8 ####[facility] [id number] [place] [address] [place] Immature granulocytes/100 WBC (Bld) 0.8 % Normal [facility] Comment on above: Order Comment: Speci men Type: BLOOD SPECIMENOrdering Facility: [facility] Address: [address] [place] [address] Performed By: #### 5 7021-8 ####[facility] [id number] [place] [address] [place] Lymphocytes (Bld) [#/Vol] 2.00 10*3/uL Normal 1.00-4.00 [facility] Comment on above: Order Comment: Speci men Type: BLOOD SPECIMENOrdering Facility: [facility] Address: [address] [place] [address] Performed By: #### 5 7021-8 ####[facility] [id number] [place] [address] [place] Lymphocytes/100 WBC (Bld) 19.3 % Normal [facility] Comment on above: Order Comment: Speci men Type: BLOOD SPECIMENOrdering Facility: [facility] Address: [address] [place] [address] Performed By: #### 5 7021-8 ####[facility] CENTERATIF [id number] [address] STATES [facility] MCH (RBC) [Entitic mass] 30.8 pg Normal 26.0-34.0 [facility] Comment on above: Order Comment: Speci men Type: BLOOD SPECIMENOrdering Facility: [facility] Address: [address] [place] [address] Performed By: #### 5 7021-8 ####[facility]ERNCMOUNT[facility] [id number] [place] [address] [place] MCHC (RBC) [Mass/Vol] 32.7 g/dL Normal 30.5-36.0 [facility] Comment on above: Order Comment: Speci men Type: BLOOD SPECIMENOrdering Facility: [facility] Address: [address] [place] [address] Performed By: #### 5 7021-8 ####[facility] [id number] [place] [address] [place] MCV (RBC) [Entitic vol] 93.9 fL Normal 80.0-100.0 [facility] Comment on above: Order Comment: Speci men Type: BLOOD SPECIMENOrdering Facility: [facility] Address: [address] [place] [address] Performed By: #### 5 7021-8 ####[facility] CENTERNCLI [id number] [place] [address] [place] Monocytes (Bld) [#/Vol] 1.08 10*3/uL High <0.87 [facility] Comment on above: Order Comment: Speci men Type: BLOOD SPECIMENOrdering Facility: [facility] Address: [address] [place] [address] Performed By: #### 5 7021-8 ####[facility] ORVILLEWNCLIA [id number] [place] [address] [place] Monocytes/100 WBC (Bld) 10.4 % Normal [facility] Comment on above: Order Comment: Speci men Type: BLOOD SPECIMENOrdering Facility: [facility] Address: [address] [place] [address] Performed By: #### 5 7021-8 ####[facility] CENTERA [id number] [place] [address] [place] Neutrophils (Bld) [#/Vol] 6.99 10*3/uL Normal 1.45-7.50 [facility] Comment on above: Order Comment: Speci men Type: BLOOD SPECIMENOrdering Facility: [facility] Address: [address] [place] [address] Performed By: #### 5 7021-8 ####[facility] CENTERA [id number] [place] [address] [place] Neutrophils/100 WBC (Bld) 67.6 % Normal [facility] Comment on above: Order Comment: Speci men Type: BLOOD SPECIMENOrdering Facility: [facility] Address: [address] [place] [address] Performed By: #### 5 7021-8 ####[facility] CENTERA [id number] [place] [address] [place] Nucleated RBC (Bld) [#/Vol] 10*3/uL Normal <0.01 [facility] Comment on above: Order Comment: Speci men Type: BLOOD SPECIMENOrdering Facility: [facility] Address: [address] [place] [address] Performed By: #### 5 7021-8 ####[facility] CENTERNCLIA [id number] [place] [address] [place] Nucleated RBC/100 WBC (Bld) [Ratio] 0.0 /100 WBC Normal [facility] Comment on above: Order Comment: Speci men Type: BLOOD SPECIMENOrdering Facility: [facility] Address: [address] [place] [address] Performed By: #### 5 7021-8 ####[facility] [id number] [place] [address] [place] Platelet mean volume (Bld) [Entitic vol] 9.6 fL Normal 9.0-12.7 [facility] Comment on above: Order Comment: Speci men Type: BLOOD SPECIMENOrdering Facility: [facility] Address: [address] [place] [address] Performed By: #### 5 7021-8 ####[facility] [id number] [place] [address] [place] Platelets (Bld) [#/Vol] 268 10*3/uL Normal 150-400 [facility] Comment on above: Order Comment: Speci men Type: BLOOD SPECIMENOrdering Facility: [facility] Address: [address] [place] [address] Performed By: #### 5 7021-8 ####[facility] [id number] [place] [address] [place] RBC (Bld) [#/Vol] 4.13 10*6/uL Low 4.20-6.00 [facility] Comment on above: Order Comment: Speci men Type: BLOOD SPECIMENOrdering Facility: [facility] Address: [address] [place] [address] Performed By: #### 5 7021-8 ####[facility] [id number] [place] [address] [place] WBC (Bld) [#/Vol] 10.35 10*3/uL Normal 3.70-11.00 [facility] Comment on above: Order Comment: Speci men Type: BLOOD SPECIMENOrdering Facility: [facility] Address: [address] [place] [address] Performed By: #### 5 7021-8 ####[facility] ORVILLERupertNCLIA [id number] [place] [address] [place] CNOVSPon 08-12-2024 CNOVSP Normal [facility] CNPNon 08-12-2024 CNPN Normal [facility] Comprehensive metabolic 2000 panelon 08-12-2024 Albumin [Mass/Vol] 4.3 g/dL Normal 3.9-4.[address] [facility] Comment on above: Order Comment: Speci men Type: BLOOD SPECIMENOrdering Facility: [facility] Address: [address] [place] [address] Performed By: #### 1 9123-9, 82934-4 ####[facility] CENTERRupertNCLIA [id number] [place] [address] [place] ALP [Catalytic activity/Vol] 107 U/L Normal 38-113 [facility] Comment on above: Order Comment: Speci men Type: BLOOD SPECIMENOrdering Facility: [facility] Address: [address] [place] [address] Performed By: #### 1 9123-9, 50569-9 ####[facility] ORVILLEPHILADELPHIANCMICHELA [id number] [place] [address] [place] ALT [Catalytic activity/Vol] 20 U/L Normal 10-54 [facility] Comment on above: Order Comment: Speci men Type: BLOOD SPECIMENOrdering Facility: [facility] Address: [address] [place] [address] Performed By: #### 1 9123-9, 23319-3 ####[facility] CENTERWNCLIA [id number] [place] [address] [place] Anion gap [Moles/Vol] 12 mmol/L Normal 8-15 [facility] Comment on above: Order Comment: Speci men Type: BLOOD SPECIMENOrdering Facility: [facility] Address: [address] [place] [address] Performed By: #### 1 9123-9, 22732-7 ####[facility] CENTERNCLIA [id number] [place] [address] [place] AST [Catalytic activity/Vol] 22 U/L Normal 14-40 [facility] Comment on above: Order Comment: Speci men Type: BLOOD SPECIMENOrdering Facility: [facility] Address: [address] [place] [address] Performed By: #### 1 9123-9, 56735-7 ####[facility] CENTERNCLIA [id number] [place] [address] [place] Bilirubin [Mass/Vol] 0.3 mg/dL Normal 0.2-1.3 [facility] Comment on above: Order Comment: Speci men Type: BLOOD SPECIMENOrdering Facility: [facility] Address: [address] [place] [address] Performed By: #### 1 9123-9, 26617-3 ####[facility] CENTERNCLIA [id number] [place] [address] [place] Calcium [Mass/Vol] 10.1 mg/dL Normal 8.5-10.[address] [facility] Comment on above: Order Comment: Speci men Type: BLOOD SPECIMENOrdering Facility: [facility] Address: [address] [place] [address] Performed By: #### 1 9123-9, 36590-6 ####[facility] CENTERNCLIA [id number] [place] [address] [place] Chloride [Moles/Vol] 97 mmol/L Low 98-107 [facility] Comment on above: Order Comment: Speci men Type: BLOOD SPECIMENOrdering Facility: [facility] Address: [address] [place] [address] Performed By: #### 1 9123-9, 19075-1 ####[facility] KANDYNCLIRhonda [id number] [place] [address] [place] CO2 [Moles/Vol] 28 mmol/L Normal 22-30 [facility] Comment on above: Order Comment: Speci men Type: BLOOD SPECIMENOrdering Facility: [facility] Address: [address] [place] [address] Performed By: #### 1 9123-9, 55682-7 ####[facility] ORVILLEPHILADELPHIANCLIA [id number] [address] [place] OF [facility] Creatinine [Mass/Vol] 0.96 mg/dL Normal 0.73-1.22 [facility] Comment on above: Order Comment: Speci men Type: BLOOD SPECIMENOrdering Facility: [facility] Address: [address] [place] [address] Performed By: #### 1 9123-9, 46085-5 ####[facility] ORVILLEPHILADELPHIANCLIA [id number] [address] [facility] Creatinine and Glomerular filtration rate.predicted panel (S/P/Bld) 86 mL/min/1.73m??? Normal >=60 [facility] Comment on above: Order Comment: Speci men Type: BLOOD SPECIMENOrdering Facility: [facility] Address: [address] [place] [address] Result Comment: Rekha mated Glomerular Filtration Rate (eGFR) is calculated using the 2020 CKD-EPI creatinine equation. This equation utilizes serum creatinine, sex, and age as parameters. The creatinine assay has traceable calibration to isotope dilution-mass spectrometry. Refer to KDIGO guidelines for clinical interpretation. In patients with unstable renal function, e.g. those with acute kidney injury, the eGFR may not accurately reflect actual GFR. Performed By: #### 1 9123-9, 63246-0 ####[facility] CENTERNCLIA [id number] [place] [address] [place] Glucose [Mass/Vol] 92 mg/dL Normal 74-[address] [facility] Comment on above: Order Comment: Speci men Type: BLOOD SPECIMENOrdering Facility: [facility] Address: [address] [place] [address] Result Comment: The [place] Diabetes Association (ADA) provides guidance for cutoff values for fasting glucose and random glucose. The ADA defines fasting as no caloric intake for at least 8 hours. Fasting plasma glucose results between 100 to 125 mg/dL indicate increased risk for diabetes (prediabetes).Fasting plasma glucose results greater than or equal to 126 mg/dL meet the criteria for diagnosis of diabetes. In the absence of unequivocal hyperglycemia, results should be confirmed by repeat testing. In a patient with classic symptoms of hyperglycemia or hyperglycemic crisis, random plasma glucose results greater than or equal to 200 mg/dL meet the criteria for diagnosis of diabetes.Reference: Standards of Medical Care in Diabetes 2016, [place] [employer]. Diabetes Care. 2016.39(Suppl 1). Performed By: #### 1 9123-9, 63765-5 ####[facility] [id number] [place] [address] [place] Potassium [Moles/Vol] 4.7 mmol/L Normal 3.7-5.1 [facility] Comment on above: Order Comment: Speci men Type: BLOOD SPECIMENOrdering Facility: [facility] Address: [address] [place] [address] Performed By: #### 1 9123-9, 00185-8 ####[facility]ALLIA [id number] [place] [address] [place] Protein [Mass/Vol] 7.2 g/dL Normal 6.3-8.[address] [facility] Comment on above: Order Comment: Speci men Type: BLOOD SPECIMENOrdering Facility: [facility] Address: [address] [place] [address] Performed By: #### 1 9123-9, 43653-3 ####[facility] MILLWNCLIA [id number] [place] [address] [place] Sodium [Moles/Vol] 137 mmol/L Normal 136-[address] [facility] Comment on above: Order Comment: Speci men Type: BLOOD SPECIMENOrdering Facility: [facility] Address: [address] [place] [address] Performed By: #### 1 9123-9, 64990-1 ####[facility]ITALLIA [id number] [place] [address] [place] Urea nitrogen [Mass/Vol] 19 mg/dL Normal - [facility] Comment on above: Order Comment: Speci men Type: BLOOD SPECIMENOrdering Facility: [facility] Address: [address] [place] [address] Performed By: #### 1 9123-9, 73641-6 ####[facility] CENTERA [id number] [place] [address] [place] Magnesium SerPl-mCncon 08-12 Magnesium [Mass/Vol] 1.9 mg/dL Normal 1.7-2.3 [facility] Comment on above: Order Comment: Speci men Type: BLOOD SPECIMENOrdering Facility: [facility] Address: [address] [place] [address] Performed By: #### 1 9123-9, 88124-8 ####[facility] MILLPHILADELPHIANCA [id number] [place] [address] [place] MRI LIVER WO/W IVCONon 07-31 MRI LIVER WO/W IVCON Normal [facility] CNOVon 07-17-2024 CNOV Normal [facility] CNOVSPon 07-15-2024 CNOVSP Normal [facility] CBC W Auto Differential pane l (Bld)on 07-10-2024 Basophils (Bld) [#/Vol] 0.04 10*3/uL Normal <0.11 [facility] Comment on above: Order Comment: Speci men Type: BLOOD SPECIMENOrdering Facility: [facility] Address: [address] [place] [address] Performed By: #### 5 7021-8 ####[facility] CENTERWNCLIA [id number] [place] [address] [place] Basophils/100 WBC (Bld) 0.3 % Normal [facility] Comment on above: Order Comment: Speci men Type: BLOOD SPECIMENOrdering Facility: [facility] Address: [address] [place] [address] Performed By: #### 5 7021-8 ####[facility] CENTERWNCLIA [id number] [place] [address] [place] Differential cell count method Nom (Bld) Auto Normal [facility] Comment on above: Order Comment: Speci men Type: BLOOD SPECIMENOrdering Facility: [facility] Address: [address] [place] [address] Performed By: #### 5 7021-8 ####[facility]ITALLIA [id number] [place] [address] [place] Eosinophils (Bld) [#/Vol] 0.10 10*3/uL Normal <0.46 [facility] Comment on above: Order Comment: Speci men Type: BLOOD SPECIMENOrdering Facility: [facility] Address: [address] [place] [address] Performed By: #### 5 7021-8 ####[facility] CENTERWNCLIA [id number] [place] [address] [place] Eosinophils/100 WBC (Bld) 0.8 % Normal [facility] Comment on above: Order Comment: Speci men Type: BLOOD SPECIMENOrdering Facility: [facility] Address: [address] [place] [address] Performed By: #### 5 7021-8 ####[facility] CENTERNCLIA [id number] [place] [address] [place] Erythrocyte distribution width (RBC) [Ratio] 15.9 % High 11.5-15.0 [facility] Comment on above: Order Comment: Speci men Type: BLOOD SPECIMENOrdering Facility: [facility] Address: [address] [place] [address] Performed By: #### 5 7021-8 ####[facility] [id number] [place] [address] [place] Hematocrit (Bld) [Volume fraction] 38.3 % Low 39.0-51.0 [facility] Comment on above: Order Comment: Speci men Type: BLOOD SPECIMENOrdering Facility: [facility] Address: [address] [place] [address] Performed By: #### 5 7021-8 ####[facility] [id number] [place] [address] [place] Hemoglobin (Bld) [Mass/Vol] 12.2 g/dL Low 13.0-17.0 [facility] Comment on above: Order Comment: Speci men Type: BLOOD SPECIMENOrdering Facility: [facility] Address: [address] [place] [address] Performed By: #### 5 7021-8 ####[facility] [id number] [place] [address] [place] Immature granulocytes (Bld) [#/Vol] 0.08 10*3/uL Normal <0.10 [facility] Comment on above: Order Comment: Speci men Type: BLOOD SPECIMENOrdering Facility: [facility] Address: [address] [place] [address] Performed By: #### 5 7021-8 ####[facility] [id number] [place] [address] [place] Immature granulocytes/100 WBC (Bld) 0.6 % Normal [facility] Comment on above: Order Comment: Speci men Type: BLOOD SPECIMENOrdering Facility: [facility] Address: [address] [place] [address] Performed By: #### 5 7021-8 ####[facility] CENTERNCA [id number] [place] [address] [place] Lymphocytes (Bld) [#/Vol] 1.99 10*3/uL Normal 1.00-4.00 [facility] Comment on above: Order Comment: Speci men Type: BLOOD SPECIMENOrdering Facility: [facility] Address: [address] [place] [address] Performed By: #### 5 7021-8 ####[facility] [id number] [place] [address] [place] Lymphocytes/100 WBC (Bld) 15.9 % Normal [facility] Comment on above: Order Comment: Speci men Type: BLOOD SPECIMENOrdering Facility: [facility] Address: [address] [place] [address] Performed By: #### 5 7021-8 ####[facility] [id number] [place] [address] [place] MCH (RBC) [Entitic mass] 30.5 pg Normal 26.0-34.0 [facility] Comment on above: Order Comment: Speci men Type: BLOOD SPECIMENOrdering Facility: [facility] Address: [address] [place] [address] Performed By: #### 5 7021-8 ####[facility]PITALLIA [id number] [place] [address] [place] MCHC (RBC) [Mass/Vol] 31.9 g/dL Normal 30.5-36.0 [facility] Comment on above: Order Comment: Speci men Type: BLOOD SPECIMENOrdering Facility: [facility] Address: [address] [place] [address] Performed By: #### 5 7021-8 ####[facility] OVRILLEJUAN [id number] [place] [address] [place] MCV (RBC) [Entitic vol] 95.8 fL Normal 80.0-100.0 [facility] Comment on above: Order Comment: Speci men Type: BLOOD SPECIMENOrdering Facility: [facility] Address: [address] [place] [address] Performed By: #### 5 7021-8 ####[facility] CENTERLORENZORhonda [id number] [place] [address] [place] Monocytes (Bld) [#/Vol] 0.75 10*3/uL Normal <0.87 [facility] Comment on above: Order Comment: Speci men Type: BLOOD SPECIMENOrdering Facility: [facility] Address: [address] [place] [address] Performed By: #### 5 7021-8 ####[facility] CENTERA [id number] [place] [address] [place] Monocytes/100 WBC (Bld) 6.0 % Normal [facility] Comment on above: Order Comment: Speci men Type: BLOOD SPECIMENOrdering Facility: [facility] Address: [address] [place] [address] Performed By: #### 5 7021-8 ####[facility]PITALLIA [id number] [place] [address] [place] Neutrophils (Bld) [#/Vol] 9.56 10*3/uL High 1.45-7.50 [facility] Comment on above: Order Comment: Speci men Type: BLOOD SPECIMENOrdering Facility: [facility] Address: [address] [place] [address] Performed By: #### 5 7021-8 ####[facility] CENTERWNCLIA [id number] [place] [address] [place] Neutrophils/100 WBC (Bld) 76.4 % Normal [facility] Comment on above: Order Comment: Speci men Type: BLOOD SPECIMENOrdering Facility: [facility] Address: [address] [place] [address] Performed By: #### 5 7021-8 ####[facility]ITALLIA [id number] [place] [address] [place] Nucleated RBC (Bld) [#/Vol] 10*3/uL Normal <0.01 [facility] Comment on above: Order Comment: Speci men Type: BLOOD SPECIMENOrdering Facility: [facility] Address: [address] [place] [address] Performed By: #### 5 7021-8 ####[facility] [id number] [place] [address] [place] Nucleated RBC/100 WBC (Bld) [Ratio] 0.0 /100 WBC Normal [facility] Comment on above: Order Comment: Speci men Type: BLOOD SPECIMENOrdering Facility: [facility] Address: [address] [place] [address] Performed By: #### 5 7021-8 ####[facility]ITALLIA [id number] [place] [address] [place] Platelet mean volume (Bld) [Entitic vol] 10.0 fL Normal 9.0-12.7 [facility] Comment on above: Order Comment: Speci men Type: BLOOD SPECIMENOrdering Facility: [facility] Address: [address] [place] [address] Performed By: #### 5 7021-8 ####[facility]ENTERNCMOUNTAIN [facility] [id number] [place] [id number] [place] Platelets (Bld) [#/Vol] 265 10*3/uL Normal 150-400 [facility] Comment on above: Order Comment: Speci men Type: BLOOD SPECIMENOrdering Facility: [facility] Address: [address] [place] [address] Performed By: #### 5 7021-8 ####[facility] CENTERLORENZOBOBBI [id number] [place] [id number] [place] RBC (Bld) [#/Vol] 4.00 10*6/uL Low 4.20-6.00 [facility] Comment on above: Order Comment: Speci men Type: BLOOD SPECIMENOrdering Facility: [facility] Address: [address] [place] [address] Performed By: #### 5 7021-8 ####[facility] CENTERRhonda [id number] [place] [address] [place] WBC (Bld) [#/Vol] 12.52 10*3/uL High 3.70-11.00 [facility] Comment on above: Order Comment: Speci men Type: BLOOD SPECIMENOrdering Facility: [facility] Address: [address] [place] [address] Performed By: #### 5 7021-8 ####[facility] CENTERA [id number] [place] [address] [place] CT ABD/PEL W IVCONon 025 CT ABD/PEL W IVCON Normal [facility] CT CHEST W IVCONon 5 CT CHEST W IVCON Normal [facility] Comprehensive metabolic 2000 panelon 07-10-2024 Albumin [Mass/Vol] 4.5 g/dL Normal 3.9-4.[address] [facility] Comment on above: Order Comment: Speci men Type: BLOOD SPECIMENOrdering Facility: [facility] Address: [address] [place] [address] Performed By: #### 2 4323-8, 52787-4 ####[facility] STACEY MILLTOWNCLIA [id number] [place] [address] [place] ALP [Catalytic activity/Vol] 113 U/L Normal 38-113 [facility] Comment on above: Order Comment: Speci men Type: BLOOD SPECIMENOrdering Facility: [facility] Address: [address] [place] [address] Performed By: #### 2 432-8, ####[facility] MILLTOWNCLIA [id number] [place] [address] [place] ALT [Catalytic activity/Vol] 16 U/L Normal 10-54 [facility] Comment on above: Order Comment: Speci men Type: BLOOD SPECIMENOrdering Facility: [facility] Address: [address] [place] [address] Performed By: #### 2 432-8, ####[facility] CENTERWNCLIA [id number] [place] [address] [place] Anion gap [Moles/Vol] 13 mmol/L Normal 8-15 [facility] Comment on above: Order Comment: Speci men Type: BLOOD SPECIMENOrdering Facility: [facility] Address: [address] [place] [address] Performed By: #### 2 4323-8, ####[facility] MILLTOWNCLIA [id number] [place] [address] [place] AST [Catalytic activity/Vol] 20 U/L Normal 14-40 [facility] Comment on above: Order Comment: Speci men Type: BLOOD SPECIMENOrdering Facility: [facility] Address: [address] [place] [address] Performed By: #### 2 4323-8, ####[facility] MILLTOWNCLIA [id number] [place] [address] [place] Bilirubin [Mass/Vol] 0.4 mg/dL Normal 0.2-1.3 [facility] Comment on above: Order Comment: Speci men Type: BLOOD SPECIMENOrdering Facility: [facility] Address: [address] [place] [address] Performed By: #### 2 4323-8, ####[facility] MILLWNCLIA [id number] [place] [address] [place] Calcium [Mass/Vol] 9.9 mg/dL Normal 8.5-10.[address] [facility] Comment on above: Order Comment: Speci men Type: BLOOD SPECIMENOrdering Facility: [facility] Address: [address] [place] [address] Performed By: #### 2 4323-8, ####[facility] CENTERWLORENZOLIA [id number] [place] [address] [place] Chloride [Moles/Vol] 91 mmol/L Low 98-107 [facility] Comment on above: Order Comment: Speci men Type: BLOOD SPECIMENOrdering Facility: [facility] Address: [address] [place] [address] Performed By: #### 2 4323-8, ####[facility] MILLWLORENZOLIA [id number] [place] [address] [place] CO2 [Moles/Vol] 28 mmol/L Normal 22-30 [facility] Comment on above: Order Comment: Speci men Type: BLOOD SPECIMENOrdering Facility: [facility] Address: [address] [place] [address] Performed By: #### 2 4323-8, ####[facility] CENTERWNCLIA [id number] [place] [address] [place] Creatinine [Mass/Vol] 1.01 mg/dL Normal 0.73-1.22 [facility] Comment on above: Order Comment: Fidelina murillo Type: BLOOD SPECIMENOrdering Facility: [facility] Address: [address] [place] [address] Performed By: #### 2 4323-8, ####[facility] CENTERNCA [id number] [place] [address] [place] Creatinine and Glomerular filtration rate.predicted panel (S/P/Bld) 81 mL/min/1.73m??? Normal >=60 [facility] Comment on above: Order Comment: Fidelina murillo Type: BLOOD SPECIMENOrdering Facility: [facility] Address: [address] [place] [address] Result Comment: Rekha mated Glomerular Filtration Rate (eGFR) is calculated using the 2020 CKD-EPI creatinine equation. This equation utilizes serum creatinine, sex, and age as parameters. The creatinine assay has traceable calibration to isotope dilution-mass spectrometry. Refer to KDIGO guidelines for clinical interpretation. In patients with unstable renal function, e.g. those with acute kidney injury, the eGFR may not accurately reflect actual GFR. Performed By: #### 2 4323-8, ####[facility]PITALLIA [id number] [place] [address] [place] Glucose [Mass/Vol] 167 mg/dL High 74-[address] [facility] Comment on above: Order Comment: Fidelina murillo Type: BLOOD SPECIMENOrdering Facility: [facility] Address: [address] [place] [address] Result Comment: The [place] Diabetes [employer] (ADA) provides guidance for cutoff values for fasting glucose and random glucose. The ADA defines fasting as no caloric intake for at least 8 hours. Fasting plasma glucose results between 100 to 125 mg/dL indicate increased risk for diabetes (prediabetes).Fasting plasma glucose results greater than or equal to 126 mg/dL meet the criteria for diagnosis of diabetes. In the absence of unequivocal hyperglycemia, results should be confirmed by repeat testing. In a patient with classic symptoms of hyperglycemia or hyperglycemic crisis, random plasma glucose results greater than or equal to 200 mg/dL meet the criteria for diagnosis of diabetes.Reference: Standards of Medical Care in Diabetes 2016, [place] [employer]. Diabetes Care. 2016.39(Suppl 1). Performed By: #### 2 4323-8, ####[facility] CENTERNCBOBBI [id number] [place] [address] [place] Potassium [Moles/Vol] 4.1 mmol/L Normal 3.7-5.1 [facility] Comment on above: Order Comment: Speci men Type: BLOOD SPECIMENOrdering Facility: [facility] Address: [address] [place] [address] Performed By: #### 2 4323-8, ####[facility] CENTERNCRhonda [id number] [place] [address] [place] Protein [Mass/Vol] 7.7 g/dL Normal 6.3-8.[address] [facility] Comment on above: Order Comment: Speci men Type: BLOOD SPECIMENOrdering Facility: [facility] Address: [address] [place] [address] Performed By: #### 2 432-8, ####[facility] CENTERNCA [id number] [place] [address] [place] Sodium [Moles/Vol] 132 mmol/L Low 136-[address] [facility] Comment on above: Order Comment: Speci men Type: BLOOD SPECIMENOrdering Facility: [facility] Address: [address] [place], [place] [address] Performed By: #### 2 4323-8, ####[facility] CENTERNCLIA [id number] [place] [address] [place] Urea nitrogen [Mass/Vol] 24 mg/dL Normal 9-24 [facility] Comment on above: Order Comment: Speci men Type: BLOOD SPECIMENOrdering Facility: [facility] Address: [address] [place] [address] Performed By: #### 2 4323-8, 25780-5 ####[facility] CENTERATIF [id number] [place] [address] [place] Magnesium SerPl-mCncon 07-10 Magnesium [Mass/Vol] 2.0 mg/dL Normal 1.7-2.3 [facility] Comment on above: Order Comment: Speci men Type: BLOOD SPECIMENOrdering Facility: [facility] Address: [address] [place] [address] Performed By: #### 2 4323-8, 12556-6 ####[facility] CENTERLORENZORhonda [id number] [place] [address] [place] CBC W Auto Differential pane l (Bld)on 06-17-2024 Basophils (Bld) [#/Vol] 0.04 10*3/uL Normal <0.11 [facility] Comment on above: Order Comment: Speci men Type: BLOOD SPECIMENOrdering Facility: [facility] Address: [address] [place] [address] Performed By: #### 5 7021-8 ####[facility] [id number] [place] [address] [place] Basophils/100 WBC (Bld) 0.5 % Normal C [facility] Comment on above: Order Comment: Speci men Type: BLOOD SPECIMENOrdering Facility: [facility] Address: [address] [place] [address] Performed By: #### 5 7021-8 ####[facility] [id number] [place] [address] [place] Differential cell count method Nom (Bld) Auto Normal [facility] Comment on above: Order Comment: Speci men Type: BLOOD SPECIMENOrdering Facility: [facility] Address: [address] [place] [address] Performed By: #### 5 7021-8 ####[facility] MILLWNCLIA [id number] [place] [address] [place] Eosinophils (Bld) [#/Vol] 0.16 10*3/uL Normal <0.46 [facility] Comment on above: Order Comment: Speci men Type: BLOOD SPECIMENOrdering Facility: [facility] Address: [address] [place] [address] Performed By: #### 5 7021-8 ####[facility] CENTERWTNLIA [id number] [place] [address] [place] Eosinophils/100 WBC (Bld) 1.9 % Normal [facility] Comment on above: Order Comment: Speci men Type: BLOOD SPECIMENOrdering Facility: [facility] Address: [address] [place] [address] Performed By: #### 5 7021-8 ####[facility]OSPITALLIA [id number] [place] [address] [place] Erythrocyte distribution width (RBC) [Ratio] 15.9 % High 11.5-15.0 [facility] Comment on above: Order Comment: Speci men Type: BLOOD SPECIMENOrdering Facility: [facility] Address: [address] [place] [address] Performed By: #### 5 7021-8 ####[facility] CENTERWNCLIA [id number] [place] [address] [place] Hematocrit (Bld) [Volume fraction] 34.8 % Low 39.0-51.0 [facility] Comment on above: Order Comment: Speci men Type: BLOOD SPECIMENOrdering Facility: [facility] Address: [address] [place] [address] Performed By: #### 5 7021-8 ####[facility] CENTERNCLIA [id number] [place] [address] [place] Hemoglobin (Bld) [Mass/Vol] 11.2 g/dL Low 13.0-17.0 [facility] Comment on above: Order Comment: Speci men Type: BLOOD SPECIMENOrdering Facility: [facility] Address: [address] [place] [address] Performed By: #### 5 7021-8 ####[facility] [id number] [place] [address] [place] Immature granulocytes (Bld) [#/Vol] 0.04 10*3/uL Normal <0.10 [facility] Comment on above: Order Comment: Speci men Type: BLOOD SPECIMENOrdering Facility: [facility] Address: [address] [place] [address] Performed By: #### 5 7021-8 ####[facility] [id number] [place] [address] [place] Immature granulocytes/100 WBC (Bld) 0.5 % Normal [facility] Comment on above: Order Comment: Speci men Type: BLOOD SPECIMENOrdering Facility: [facility] Address: [address] [place] [address] Performed By: #### 5 7021-8 ####[facility] [id number] [place] [address] [place] Lymphocytes (Bld) [#/Vol] 1.73 10*3/uL Normal 1.00-4.00 [facility] Comment on above: Order Comment: Speci men Type: BLOOD SPECIMENOrdering Facility: [facility] Address: [address] [place] [address] Performed By: #### 5 7021-8 ####[facility] [id number] [place] [address] [place] Lymphocytes/100 WBC (Bld) 20.4 % Normal [facility] Comment on above: Order Comment: Speci men Type: BLOOD SPECIMENOrdering Facility: [facility] Address: [address] [place] [address] Performed By: #### 5 7021-8 ####[facility] ORVILLEPHILADELPHIANCBOBBI [id number] [place] [address] [place] MCH (RBC) [Entitic mass] 31.9 pg Normal 26.0-34.0 [facility] Comment on above: Order Comment: Speci men Type: BLOOD SPECIMENOrdering Facility: [facility] Address: [address] [place] [address] Performed By: #### 5 7021-8 ####[facility]ENTERNCLIA [id number] [place] [address] [place] MCHC (RBC) [Mass/Vol] 32.2 g/dL Normal 30.5-36.0 [facility] Comment on above: Order Comment: Speci men Type: BLOOD SPECIMENOrdering Facility: [facility] Address: [address] [place] [address] Performed By: #### 5 7021-8 ####[facility]ENTERNCLIA [id number] [address] [place] MCV (RBC) [Entitic vol] 99.1 fL Normal 80.0-100.0 [facility] Comment on above: Order Comment: Speci men Type: BLOOD SPECIMENOrdering Facility: [facility] Address: [address] [place] [address] Performed By: #### 5 7021-8 ####[facility]ENTERNCLIA [id number] [place] [address] [place] Monocytes (Bld) [#/Vol] 0.78 10*3/uL Normal <0.87 [facility] Comment on above: Order Comment: Speci men Type: BLOOD SPECIMENOrdering Facility: [facility] Address: [address] [place] [address] Performed By: #### 5 7021-8 ####[facility] CENTERWNCLIA [id number] [place] [address] [place] Monocytes/100 WBC (Bld) 9.2 % Normal [facility] Comment on above: Order Comment: Speci men Type: BLOOD SPECIMENOrdering Facility: [facility] Address: [address] [place] [address] Performed By: #### 5 7021-8 ####[facility]ENTERNCLIA [id number] [place] [address] [place] Neutrophils (Bld) [#/Vol] 5.73 10*3/uL Normal 1.45-7.50 [facility] Comment on above: Order Comment: Speci men Type: BLOOD SPECIMENOrdering Facility: [facility] Address: [address] [place] [address] Performed By: #### 5 7021-8 ####[facility] CENTERA [id number] [place] [address] [place] Neutrophils/100 WBC (Bld) 67.5 % Normal [facility] Comment on above: Order Comment: Speci men Type: BLOOD SPECIMENOrdering Facility: [facility] Address: [address] [place] [address] Performed By: #### 5 7021-8 ####[facility]ENTERNCLIA [id number] [place] [address] [place] Nucleated RBC (Bld) [#/Vol] 10*3/uL Normal <0.01 [facility] Comment on above: Order Comment: Speci men Type: BLOOD SPECIMENOrdering Facility: [facility] Address: [address] [place] [address] Performed By: #### 5 7021-8 ####[facility]ENTERNCLIA [id number] [place] [address] [place] Nucleated RBC/100 WBC (Bld) [Ratio] 0.0 /100 WBC Normal [facility] Comment on above: Order Comment: Speci men Type: BLOOD SPECIMENOrdering Facility: [facility] Address: [address] [place] [address] Performed By: #### 5 7021-8 ####[facility] KANDYLORENZOBOBBI [id number] [place] [address] [place] Platelet mean volume (Bld) [Entitic vol] 10.3 fL Normal 9.0-12.7 [facility] Comment on above: Order Comment: Speci men Type: BLOOD SPECIMENOrdering Facility: [facility] Address: [address] [place] [address] Performed By: #### 5 7021-8 ####[facility] CENTERLORENZORhonda [id number] [place] [address] [place] Platelets (Bld) [#/Vol] 242 10*3/uL Normal 150-400 [facility] Comment on above: Order Comment: Speci men Type: BLOOD SPECIMENOrdering Facility: [facility] Address: [address] [place] [address] Performed By: #### 5 7021-8 ####[facility] ORVILLEPHILADELPHIALORENZOBOBBI [id number] [place] [address] [place] RBC (Bld) [#/Vol] 3.51 10*6/uL Low 4.20-6.00 [facility] Comment on above: Order Comment: Speci men Type: BLOOD SPECIMENOrdering Facility: [facility] Address: [address] [place] [address] Performed By: #### 5 7021-8 ####[facility]ENTERNCLIA [id number] [place] [address] [place] WBC (Bld) [#/Vol] 8.48 10*3/uL Normal 3.70-11.00 [facility] Comment on above: Order Comment: Speci men Type: BLOOD SPECIMENOrdering Facility: [facility] Address: [address] [place] [address] Performed By: #### 5 7021-8 ####[facility] ORVILLEWNCLIA [id number] [place] [address] [place] CNOVSPon 06-17-2024 CNOVSP Normal [facility] metabolic 2000 panelon 06-17-2024 Albumin [Mass/Vol] 4.1 g/dL Normal 3.9-4.[address] [facility] Comment on above: Order Comment: Speci men Type: BLOOD SPECIMENOrdering Facility: [facility] Address: [address] [place] [address] Performed By: #### 1 9123-9, 40779-0 ####[facility]ENTERNCLIA [id number] [place] [address] [place] ALP [Catalytic activity/Vol] 118 U/L High 38-113 [facility] Comment on above: Order Comment: Speci men Type: BLOOD SPECIMENOrdering Facility: [facility] Address: [address] [place] [address] Performed By: #### 1 9123-9, 76095-6 ####[facility] CENTERWNCLIA [id number] [place] [address] [place] ALT [Catalytic activity/Vol] 13 U/L Normal 10-54 [facility] Comment on above: Order Comment: Speci men Type: BLOOD SPECIMENOrdering Facility: [facility] Address: [address] [place] [address] Performed By: #### 1 9123-9, 14443-1 ####[facility] CENTERWNCLIA [id number] [place] [address] [place] Anion gap [Moles/Vol] 10 mmol/L Normal 8-15 [facility] Comment on above: Order Comment: Speci men Type: BLOOD SPECIMENOrdering Facility: [facility] Address: [address] [place] [address] Performed By: #### 1 9123-9, 44206-0 ####[facility] [id number] [place] [address] [place] AST [Catalytic activity/Vol] 16 U/L Normal 14-40 [facility] Comment on above: Order Comment: Speci men Type: BLOOD SPECIMENOrdering Facility: [facility] Address: [address] [place] [address] Performed By: #### 1 9123-9, 51198-4 ####[facility] [id number] [place] [address] [place] Bilirubin [Mass/Vol] 0.2 mg/dL Normal 0.2-1.3 [facility] Comment on above: Order Comment: Speci men Type: BLOOD SPECIMENOrdering Facility: [facility] Address: [address] [place] [address] Performed By: #### 1 9123-9, 76931-2 ####[facility] [id number] [place] [address] [place] Calcium [Mass/Vol] 9.7 mg/dL Normal 8.5-10.[address] [facility] Comment on above: Order Comment: Speci men Type: BLOOD SPECIMENOrdering Facility: [facility] Address: [address] [place] [address] Performed By: #### 1 9123-9, 10174-5 ####[facility] [id number] [place] [address] [place] Chloride [Moles/Vol] 96 mmol/L Low 98-107 [facility] Comment on above: Order Comment: Speci men Type: BLOOD SPECIMENOrdering Facility: [facility] Address: [address] [place], [place] [address] Performed By: #### 1 9123-9, 77640-7 ####[facility] ORVILLEPHILADELPHIAATIF [id number] [place] [address] [place] CO2 [Moles/Vol] 27 mmol/L Normal 22-30 [facility] Comment on above: Order Comment: Speci men Type: BLOOD SPECIMENOrdering Facility: [facility] Address: [address] [place] [address] Performed By: #### 1 9123-9, 69418-7 ####[facility]ENTERNCMOUNT[facility] [id number] [place] [address] [place] Creatinine [Mass/Vol] 0.90 mg/dL Normal 0.73-1.22 [facility] Comment on above: Order Comment: Speci men Type: BLOOD SPECIMENOrdering Facility: [facility] Address: [address] [place] [address] Performed By: #### 1 9123-9, 36182-9 ####[facility] CENTERA [id number] [address] Creatinine and Glomerular filtration rate.predicted panel (S/P/Bld) 93 mL/min/1.73m??? Normal >=60 [facility] Comment on above: Order Comment: Speci men Type: BLOOD SPECIMENOrdering Facility: [facility] Address: [address] [place] [address] Result Comment: Rekha mated Glomerular Filtration Rate (eGFR) is calculated using the 2020 CKD-EPI creatinine equation. This equation utilizes serum creatinine, sex, and age as parameters. The creatinine assay has traceable calibration to isotope dilution-mass spectrometry. Refer to KDIGO guidelines for clinical interpretation. In patients with unstable renal function, e.g. those with acute kidney injury, the eGFR may not accurately reflect actual GFR. Performed By: #### 1 9123-9, 83988-5 ####[facility] CENTERWNCLIA [id number] [place] [address] [place] Glucose [Mass/Vol] 168 mg/dL High 74-[address] [facility] Comment on above: Order Comment: Speci men Type: BLOOD SPECIMENOrdering Facility: [facility] Address: [address] [place] [address] Result Comment: The [place] [employer] (ADA) provides guidance for cutoff values for fasting glucose and random glucose. The ADA defines fasting as no caloric intake for at least 8 hours. Fasting plasma glucose results between 100 to 125 mg/dL indicate increased risk for diabetes (prediabetes).Fasting plasma glucose results greater than or equal to 126 mg/dL meet the criteria for diagnosis of diabetes. In the absence of unequivocal hyperglycemia, results should be confirmed by repeat testing. In a patient with classic symptoms of hyperglycemia or hyperglycemic crisis, random plasma glucose results greater than or equal to 200 mg/dL meet the criteria for diagnosis of diabetes.Reference: Standards of Medical Care in Diabetes 2016, [place] [employer]. Diabetes Care. 2016.39(Suppl 1). Performed By: #### 1 9123-9, 83826-5 ####[facility] CENTERWNCLIA [id number] [place] [address] [place] Potassium [Moles/Vol] 4.0 mmol/L Normal 3.7-5.1 [facility] Comment on above: Order Comment: Speci men Type: BLOOD SPECIMENOrdering Facility: [facility] Address: [address] [place] [address] Performed By: #### 1 9123-9, 80274-0 ####[facility]ENTERNCLIA [id number] [place] [address] [place] Protein [Mass/Vol] 6.9 g/dL Normal 6.3-8.[address] [facility] Comment on above: Order Comment: Speci men Type: BLOOD SPECIMENOrdering Facility: [facility] Address: [address] [place] [address] Performed By: #### 1 9123-9, 92961-5 ####[facility]ENTERNCLIA [id number] [place] [address] [place] Sodium [Moles/Vol] 133 mmol/L Low 136-[address] [facility] Comment on above: Order Comment: Speci men Type: BLOOD SPECIMENOrdering Facility: [facility] Address: [address] [place] [address] Performed By: #### 1 9123-9, 24497-6 ####[facility]ITALL[facility] [id number] [place] [address] [place] Urea nitrogen [Mass/Vol] 13 mg/dL Normal 9- [facility] Comment on above: Order Comment: Speci men Type: BLOOD SPECIMENOrdering Facility: [facility] Address: [address] [place] [address] Performed By: #### 1 9123-9, 60741-0 ####[facility]ALL[facility] [id number] [place] [address] [place] Magnesium SerPl-mCncon 06-17 Magnesium [Mass/Vol] 1.9 mg/dL Normal 1.7-2.3 [facility] Comment on above: Order Comment: Speci men Type: BLOOD SPECIMENOrdering Facility: [facility] Address: [address] [place] [address] Performed By: #### 1 9123-9, 81679-3 ####[facility] [id number] [place] [address] [place] CNPNon 06-06-2024 CNPN Normal [facility] CNOVon 05-31-2024 CNOV Normal [facility] CNPNon 05-31-2024 CNPN Normal [facility] CNPNon 05-21-2024 CNPN Normal [facility] CBC W Auto Differential pane l (Bld)on 05-20-2024 Basophils (Bld) [#/Vol] 0.05 10*3/uL Normal <0.11 [facility] Comment on above: Order Comment: Speci men Type: BLOOD SPECIMENOrdering Facility: [facility] Address: [address] [place] [address] Performed By: #### 5 7021-8 ####[facility]ALL[facility] [id number] [place] [address] [place] Basophils/100 WBC (Bld) 0.5 % Normal [facility] Comment on above: Order Comment: Speci men Type: BLOOD SPECIMENOrdering Facility: [facility] Address: [address] [place] [address] Performed By: #### 5 7021-8 ####[facility] [id number] [place] [address] [place] Differential cell count method Nom (Bld) Auto Normal [facility] Comment on above: Order Comment: Speci men Type: BLOOD SPECIMENOrdering Facility: [facility] Address: [address] [place] [address] Performed By: #### 5 7021-8 ####[facility] CENTERA [id number] [place] [address] [place] Eosinophils (Bld) [#/Vol] 0.20 10*3/uL Normal <0.46 [facility] Comment on above: Order Comment: Speci men Type: BLOOD SPECIMENOrdering Facility: [facility] Address: [address] [place] [address] Performed By: #### 5 7021-8 ####[facility] [id number] [place] [address] [place] Eosinophils/100 WBC (Bld) 1.8 % Normal [facility] Comment on above: Order Comment: Speci men Type: BLOOD SPECIMENOrdering Facility: [facility] Address: [address] [place] [address] Performed By: #### 5 7021-8 ####[facility] KANDYNCLIA [id number] [place] [address] [place] Erythrocyte distribution width (RBC) [Ratio] 16.2 % High 11.5-15.0 [facility] Comment on above: Order Comment: Speci men Type: BLOOD SPECIMENOrdering Facility: [facility] Address: [address] [place] [address] Performed By: #### 5 7021-8 ####[facility]ENTERNCLIA [id number] [place] [address] [place] Hematocrit (Bld) [Volume fraction] 34.7 % Low 39.0-51.0 [facility] Comment on above: Order Comment: Speci men Type: BLOOD SPECIMENOrdering Facility: [facility] Address: [address] [place] [address] Performed By: #### 5 7021-8 ####[facility]ENTERNCLIA [id number] [place] [address] [place] Hemoglobin (Bld) [Mass/Vol] 11.0 g/dL Low 13.0-17.0 [facility] Comment on above: Order Comment: Speci men Type: BLOOD SPECIMENOrdering Facility: [facility] Address: [address] [place] [address] Performed By: #### 5 7021-8 ####[facility]ENTERNCLIA [id number] [place] [address] [place] Immature granulocytes (Bld) [#/Vol] 0.07 10*3/uL Normal <0.10 [facility] Comment on above: Order Comment: Speci men Type: BLOOD SPECIMENOrdering Facility: [facility] Address: [address] [place] [address] Performed By: #### 5 7021-8 ####[facility]ERNCMOUNT[facility] [id number] [place] [address] [place] Immature granulocytes/100 WBC (Bld) 0.6 % Normal [facility] Comment on above: Order Comment: Speci men Type: BLOOD SPECIMENOrdering Facility: [facility] Address: [address] [place] [address] Performed By: #### 5 7021-8 ####[facility] [id number] [place] [address] [place] Lymphocytes (Bld) [#/Vol] 1.60 10*3/uL Normal 1.00-4.00 [facility] Comment on above: Order Comment: Speci men Type: BLOOD SPECIMENOrdering Facility: [facility] Address: [address] [place] [address] Performed By: #### 5 7021-8 ####[facility] [id number] [place] [address] [place] Lymphocytes/100 WBC (Bld) 14.6 % Normal [facility] Comment on above: Order Comment: Speci men Type: BLOOD SPECIMENOrdering Facility: [facility] Address: [address] [place] [address] Performed By: #### 5 7021-8 ####[facility] [id number] [place] [address] [place] MCH (RBC) [Entitic mass] 32.7 pg Normal 26.0-34.0 [facility] Comment on above: Order Comment: Speci men Type: BLOOD SPECIMENOrdering Facility: [facility] Address: [address] [place] [address] Performed By: #### 5 7021-8 ####[facility] [id number] [place] [address] [place] MCHC (RBC) [Mass/Vol] 31.7 g/dL Normal 30.5-36.0 [facility] Comment on above: Order Comment: Speci men Type: BLOOD SPECIMENOrdering Facility: [facility] Address: [address] [place] [address] Performed By: #### 5 7021-8 ####[facility]ERNCMOUNT[facility] [id number] [place] [address] [place] MCV (RBC) [Entitic vol] 103.3 fL High 80.0-100.0 [facility] Comment on above: Order Comment: Speci men Type: BLOOD SPECIMENOrdering Facility: [facility] Address: [address] [place] [address] Performed By: #### 5 7021-8 ####[facility]ERNCMOUNT[facility] [id number] [place] [address] [place] Monocytes (Bld) [#/Vol] 0.76 10*3/uL Normal <0.87 [facility] Comment on above: Order Comment: Speci men Type: BLOOD SPECIMENOrdering Facility: [facility] Address: [address] [place] [address] Performed By: #### 5 7021-8 ####[facility]ENTERNCA [id number] [place] [address] [place] Monocytes/100 WBC (Bld) 6.9 % Normal [facility] Comment on above: Order Comment: Speci men Type: BLOOD SPECIMENOrdering Facility: [facility] Address: [address] [place] [address] Performed By: #### 5 7021-8 ####[facility]ENTERNCLIA [id number] [place] [address] [place] Neutrophils (Bld) [#/Vol] 8.31 10*3/uL High 1.45-7.50 [facility] Comment on above: Order Comment: Speci men Type: BLOOD SPECIMENOrdering Facility: [facility] Address: [address] [place] [address] Performed By: #### 5 7021-8 ####[facility] ORVILLEPHILADELPHIALORENZOLIA [id number] [place] [address] [place] Neutrophils/100 WBC (Bld) 75.6 % Normal [facility] Comment on above: Order Comment: Speci men Type: BLOOD SPECIMENOrdering Facility: [facility] Address: [address] [place] [address] Performed By: #### 5 7021-8 ####[facility]ENTERNCLIA [id number] [place] [address] [place] Nucleated RBC (Bld) [#/Vol] 10*3/uL Normal <0.01 [facility] Comment on above: Order Comment: Speci men Type: BLOOD SPECIMENOrdering Facility: [facility] Address: [address] [place] [address] Performed By: #### 5 7021-8 ####[facility]ENTERA [id number] [place] [address] [place] Nucleated RBC/100 WBC (Bld) [Ratio] 0.0 /100 WBC Normal [facility] Comment on above: Order Comment: Speci men Type: BLOOD SPECIMENOrdering Facility: [facility] Address: [address] [place] [address] Performed By: #### 5 7021-8 ####[facility] [id number] [place] [address] [place] Platelet mean volume (Bld) [Entitic vol] 10.2 fL Normal 9.0-12.7 [facility] Comment on above: Order Comment: Speci men Type: BLOOD SPECIMENOrdering Facility: [facility] Address: [address] [place] [address] Performed By: #### 5 7021-8 ####[facility] [id number] [place] [address] [place] Platelets (Bld) [#/Vol] 308 10*3/uL Normal 150-400 [facility] Comment on above: Order Comment: Speci men Type: BLOOD SPECIMENOrdering Facility: [facility] Address: [address] [place] [address] Performed By: #### 5 7021-8 ####[facility]ENTERNCLIA [id number] [place] [address] [place] RBC (Bld) [#/Vol] 3.36 10*6/uL Low 4.20-6.00 [facility] Comment on above: Order Comment: Speci men Type: BLOOD SPECIMENOrdering Facility: [facility] Address: [address] [place] [address] Performed By: #### 5 7021-8 ####[facility]ENTERNCLIA [id number] [place] [address] [place] WBC (Bld) [#/Vol] 10.99 10*3/uL Normal 3.70-11.00 [facility] Comment on above: Order Comment: Speci men Type: BLOOD SPECIMENOrdering Facility: [facility] Address: [address] [place] [address] Performed By: #### 5 7021-8 ####[facility]ERNCLIA [id number] [place] [address] [place] CNOVSPon 05-20-2024 CNOVSP Normal [facility] Comprehensive metabolic 2000 panelon 05-20-2024 ALP [Catalytic activity/Vol] 120 U/L High 38-113 [facility] Comment on above: Order Comment: Speci men Type: BLOOD SPECIMENOrdering Facility: [facility] Address: [address] [place] [address] Performed By: #### 2 4323-8 ####[facility]ENTERNCLIA [id number] [place] [address] [place] ALT [Catalytic activity/Vol] 19 U/L Normal 10-54 [facility] Comment on above: Order Comment: Speci men Type: BLOOD SPECIMENOrdering Facility: [facility] Address: [address] [place] [address] Performed By: #### 2 4323-8 ####[facility] MILLWNCLIA [id number] [place] [address] [place] AST [Catalytic activity/Vol] 24 U/L Normal 14-40 [facility] Comment on above: Order Comment: Speci men Type: BLOOD SPECIMENOrdering Facility: [facility] Address: [address] [place] [address] Performed By: #### 2 4323-8 ####[facility] CENTERRupertNCBOBBI [id number] [place] [address] [place] Bilirubin [Mass/Vol] 0.4 mg/dL Normal 0.2-1.3 [facility] Comment on above: Order Comment: Speci men Type: BLOOD SPECIMENOrdering Facility: [facility] Address: [address] [place] [address] Performed By: #### 2 4323-8 ####[facility] [id number] [place] [address] [place] Protein [Mass/Vol] 7.1 g/dL Normal 6.3-8.[address] [facility] Comment on above: Order Comment: Speci men Type: BLOOD SPECIMENOrdering Facility: [facility] Address: [address] [place] [address] Performed By: #### 2 4323-8 ####[facility]ENTERNCLIA [id number] [place] [address] [place] [place] Magnesium SerPl-ncon 05-20 Magnesium [Mass/Vol] 2.0 mg/dL Normal 1.7-2.3 [facility] Comment on above: Order Comment: Speci men Type: BLOOD SPECIMENOrdering Facility: [facility] Address: [address] [place] [address] Performed By: #### 2 4362-6, ####[facility] MILLTOWNCLIA [id number] [place] [address] [place] [facility] Renal Func 2000 Pnl SerPlon 05-20-2024 Albumin [Mass/Vol] 4.2 g/dL Normal 3.9-4.[address] [facility] Comment on above: Order Comment: Speci men Type: BLOOD SPECIMENOrdering Facility: [facility] Address: [address] [place] [address] Performed By: #### 2 4362-6, ####[facility] MILLTOWNCLIA [id number] [address] Performed By: #### 2 4323-8 ####[facility] MILLTOWNCLIA [id number] [place] [address] [place] Anion gap [Moles/Vol] 12 mmol/L Normal 8-15 [facility] Comment on above: Order Comment: Speci men Type: BLOOD SPECIMENOrdering Facility: [facility] Address: [address] [place] [address] Performed By: #### 2 4362-6, ####[facility] MILLTOWNCLIA [id number] [address] OF [facility] Performed By: #### 2 4323-8 ####[facility] MILLTOWNCLIA [id number] [place] [address] [place] Calcium [Mass/Vol] 9.5 mg/dL Normal 8.5-10.[address] [facility] Comment on above: Order Comment: Speci men Type: BLOOD SPECIMENOrdering Facility: [facility] Address: [address] [place] [address] Performed By: #### 2 4362-6, ####[facility] MILLTOWNCLIA [id number] [address] Performed By: #### 2 4323-8 ####[facility] MILLTOWNCLIA [id number] [place] [address] [place] Chloride [Moles/Vol] 96 mmol/L Low 98-107 [facility] Comment on above: Order Comment: Speci men Type: BLOOD SPECIMENOrdering Facility: [facility] Address: [facility] [place] [address] Performed By: #### 2 4362-6, ####[facility] MILLTOWNCLIA [id number] [address] Performed By: #### 2 4323-8 ####[facility] MILLTOWNCLIA [id number] [place] [address] [place] CO2 [Moles/Vol] 24 mmol/L Normal 22-30 [facility] Comment on above: Order Comment: Speci men Type: BLOOD SPECIMENOrdering Facility: [facility] Address: [address] [place] [address] Performed By: #### 2 4362-6, ####[facility] MILLTOWNCLIA [id number] [address] Performed By: #### 2 4323-8 ####[facility] MILLTOWNCLIA [id number] [place] [address] [place] Creatinine [Mass/Vol] 0.90 mg/dL Normal 0.73-1.22 [facility] Comment on above: Order Comment: Speci men Type: BLOOD SPECIMENOrdering Facility: [facility] Address: [address] [place] [address] Performed By: #### 2 4362-6, ####[facility] TAMMYWNCLIA [id number] [address] Performed By: #### 2 4323-8 ####[facility] TAMMYWNCLIA [id number] [address] Creatinine and Glomerular filtration rate.predicted panel (S/P/Bld) 93 mL/min/1.73m??? Normal >=60 [facility] Comment on above: Order Comment: Speci men Type: BLOOD SPECIMENOrdering Facility: [facility] Address: [address] [place] [address] Result Comment: Rekha mated Glomerular Filtration Rate (eGFR) is calculated using the 2020 CKD-EPI creatinine equation. This equation utilizes serum creatinine, sex, and age as parameters. The creatinine assay has traceable calibration to isotope dilution-mass spectrometry. Refer to KDIGO guidelines for clinical interpretation. In patients with unstable renal function, e.g. those with acute kidney injury, the eGFR may not accurately reflect actual GFR. Performed By: #### 2 4362-6, ####[facility] TAMMYWNCLIA [id number] [address] Performed By: #### 2 4323-8 ####[facility] MILLTOWNCLIA [id number] [place] [address] [place] Glucose [Mass/Vol] 169 mg/dL High 74-[address] [facility] Comment on above: Order Comment: Speci men Type: BLOOD SPECIMENOrdering Facility: [facility] Address: [address] [place] [address] Result Comment: The [place] Diabetes Association (ADA) provides guidance for cutoff values for fasting glucose and random glucose. The ADA defines fasting as no caloric intake for at least 8 hours. Fasting plasma glucose results between 100 to 125 mg/dL indicate increased risk for diabetes (prediabetes).Fasting plasma glucose results greater than or equal to 126 mg/dL meet the criteria for diagnosis of diabetes. In the absence of unequivocal hyperglycemia, results should be confirmed by repeat testing. In a patient with classic symptoms of hyperglycemia or hyperglycemic crisis, random plasma glucose results greater than or equal to 200 mg/dL meet the criteria for diagnosis of diabetes.Reference: Standards of Medical Care in Diabetes 2016, [place] Diabetes Association. Diabetes Care. 2016.39(Suppl 1). Performed By: #### 2 4362-6, ####[facility] MILLTOWNCLIA [id number] [address] Performed By: #### 2 4323-8 ####[facility] MILLTOWNCLIA [id number] [place] [address] [place] Potassium [Moles/Vol] 4.0 mmol/L Normal 3.7-5.1 [facility] Comment on above: Order Comment: Speci men Type: BLOOD SPECIMENOrdering Facility: [facility] Address: [address] [place] [address] Performed By: #### 2 4362-6, ####[facility] MILLTOWNCLIA [id number] [address] Performed By: #### 2 4323-8 ####[facility] MILLTOWNCLIA [id number] [place] [address] [place] Sodium [Moles/Vol] 132 mmol/L Low 136-[address] [facility] Comment on above: Order Comment: Speci men Type: BLOOD SPECIMENOrdering Facility: [facility] Address: [address] [place] [address] Performed By: #### 2 4362-6, ####[facility] MILLTOWNCLIA [id number] [address] Performed By: #### 2 4323-8 ####[facility] MILLTOWNCLIA [id number] [place] [address] [place] Urea nitrogen [Mass/Vol] 21 mg/dL Normal 9-24 [facility] Comment on above: Order Comment: Speci men Type: BLOOD SPECIMENOrdering Facility: [facility] Address: [address] [place] [address] Performed By: #### 2 4362-6, 71869-0 ####[facility] TAMMYWNCLIA [id number] [address] [place] Performed By: #### 2 4323-8 ####[facility] KANDYNCLIA [id number] [place] [address] [place] Renal function 2000 panelon 05-20-2024 Phosphate [Mass/Vol] 3.5 mg/dL Normal 2.7-4.8 [facility] Comment on above: Order Comment: Speci men Type: BLOOD SPECIMENOrdering Facility: [facility] Address: [address] [place] [address] Performed By: #### 2 4362-6, 92297-8 ####[facility] MILLTOWNCLIA [id number] [place] [address] [place] CNOVon 05-09-2024 CNOV Normal [facility] Absolute neutrophil countOrd ered By: Judson Hairston on 05-02-2024 Neutrophils (Bld) [#/Vol] 4.8 10*3/uL 2.0-7.7 [facility] Basic Metabolic Profile (BMP )on 05-02-2024 BUN/CRE 11.5 RATIO Normal 10-20 [facility] Comment on above: Performed By: #### L 503.6620, L300.4310, L300.3900 #### [facility] [address] [place], [address] CA,Total 9.1 mg/dL Normal 8.5-10.1 [facility] Comment on above: Performed By: #### L 503.6620, L300.4310, L300.3900 #### [facility] [address] [place], [address] Chloride [Moles/Vol] 101 mmol/L Normal 98-107 [facility] Comment on above: Performed By: #### L 503.6620, L300.4310, L300.3900 #### [facility] [address] [place], [address] CO2 [Moles/Vol] 27.0 mmol/L Normal 21.0-32.0 [facility] Comment on above: Performed By: #### L 503.6620, L300.4310, L300.3900 #### [facility] [address] [place], [address] Creatinine [Mass/Vol] 0.96 mg/dL Normal 0.70-1.30 [facility] Comment on above: Result Comment: The validity of the calculated GFR GFRAA in patients over 70 years has not been determined. Clinical correlation is essential. Performed By: #### L 503.6620, L300.4310, L300.3900 #### [facility] [address] [place], [address] ECRCL 105.71 ml/min Normal [facility] Comment on above: Performed By: #### L 503.6620, L300.4310, L300.3900 #### [facility] [address] [place], [address] EST GFR - AA 100 mL/min Normal >60 [facility] Comment on above: Result Comment: Afri can [place]ian GFR Calc Performed By: #### L 503.6620, L300.4310, L300.3900 #### [facility] [address] [place], [address] GAP 7 Normal 5-15 [facility] Comment on above: Performed By: #### L 503.6620, L300.4310, L300.3900 #### [facility] [address] [place], [address] GFR/1.73 sq M.predicted among non-blacks MDRD (S/P/Bld) [Vol rate/Area] 83 mL/min/{1.73_m2} Normal >60 [facility] Comment on above: Result Comment: Non- GFR Calc Performed By: #### L 503.6620, L300.4310, L300.3900 #### [facility] [address] [place], [address] Glucose [Mass/Vol] 159 mg/dL High 74-[address] [facility] Comment on above: Result Comment: Fast ing Glucose result greater than or equal to 126 mg/dL suggests DIABETES MELLITUS per A.D.A. criteria. Performed By: #### L 503.6620, L300.4310, L300.3900 #### [facility] [address] [place], [address] Potassium [Moles/Vol] 3.7 mmol/L Normal 3.5-5.1 [facility] Comment on above: Performed By: #### L 503.6620, L300.4310, L300.3900 #### [facility] [address] [place], [address] Sodium [Moles/Vol] 135 mmol/L Low 136-[address] [facility] Comment on above: Performed By: #### L 503.6620, L300.4310, L300.3900 #### [facility] [address] [place], [address] Urea nitrogen [Mass/Vol] 11 mg/dL Normal 7-18 [facility] Comment on above: Performed By: #### L 503.6620, L300.4310, L300.3900 #### [facility] [address] [place], [address] Basophil percentageOrdered B y: Judson Hairston on 05-02-2024 Basophils/100 WBC (Bld) 0.5 % 0-1 [facility] Bedside Glucoseon 05-02-2024 FINGERSTICK GLU 147 mg/dL High 74-106 [facility] Comment on above: Result Comment: ESTEBAN JOHN OF PATIENT CARE PER NURSING PROTOCOL Performed By: #### L 503.6620, L300.4310, L300.3900 #### [facility] [address] [place], [address] Blood urea nitrogen (BUN)/cr eatinine ratioOrdered By: Judson Hairston on 05-02-2024 Urea nitrogen/Creatinine [Mass ratio] 11.5 mg/mg 10-20 [facility] CBC W/Diff, Automatedon 04-21 Anisocytosis Ql (Bld) 2+ Normal [facility] Comment on above: Performed By: #### L 503.6620, L300.4310, L300.3900 #### [facility] [address] [place], [address] CNPNon 05-02-2024 CNPN Normal [facility] Carbon dioxide measurementOr dered By: Judson Hairston on 05-02-2024 CO2 [Moles/Vol] 27.0 mmol/L 21.0-32.0 [facility] Chloride measurementOrdered By: Judson Hairston on 05-02-2024 Chloride [Moles/Vol] 101 mmol/L 98-107 [facility] Discharge Instructionon 04-21 Discharge Instruction [facility] Medical Records Department [address] [place] [address] Instructions for Home/Discharge Instructions 05/02/24 1025 MR#: [id number] Acct: [id number] Name: ABDIRIZAK COLINDRES Rep #: [id number] : 1955 69 From: Judson Hairston MD PCP: Tyra Martell, SOLE TACKER Status:ADM CRESCENCIO Discharge Instructions Diet Discharge Diet: Low fat / Low cholesterol and 6 Cup Fluid Restriction DC O2, CPAP, BIPAP needs RN Home O2 Qualification: Home O2 Qualification: Is the patient on home oxygen No 05/02/24 09:31 Home O2 Qualification: AT REST 1- Pulse Ox at rest 99 05/02/24 09:31 Home O2 Qualification: WITH AMBULATION 1- Pulse Ox with ambulation 95 05/02/24 09:31 1- Oxygen Flow Rate with 0 05/02/24 09:31 ambulation Additional Home O2 Discharge instructions: No Dressing / Incision Discharge Activity: Return to Normal Activity Dressing / Incision Call your doctor if you observe: Fever of 101 or Higher, Shortness of breath, Dizziness, Fainting spells, Swelling in the ankles, Chest pain and Increased palpitations (irregular heartbeat) Follow Up Care Test Results: Test results from this visit will be discussed in further detail at your follow-up appointment, if applicable. Discharge Plan Admission Admit Date/Time: 04/30/24 12:57 Attending Provider: Judson Hairston Primary Care Provider: Tyra Martell Instructions Patient Instructions: Cardiomyopathy Dc, ED Heart Failure, Congestive (CHF) Additional Instructions / Restrictions: Follow-up with your PCP in 3 to 5 days to monitor your electrolytes and your renal function secondary to your new medication Lasix. Discharge Orders/Prescriptions Prescriptions: New Eliquis 5 mg Tablet 5 mg PO BID 30 Days Qty: 60 0RF furosemide [Lasix] 40 mg tablet 40 mg PO DAILY Qty: 30 0RF Continued omeprazole 20 MG capsule 20 mg PO DAILY Patient Comments: STOMACH cyclobenzaprine 10 MG tablet 10 mg PO TID PRN (Reason: spasms) naltrexone 50 mg tablet 50 mg PO DAILY simvastatin 40 mg tablet 40 mg PO QHS tamsulosin 0.4 mg capsule 0.4 mg PO QHS levothyroxine 50 mcg tablet 50 mcg PO DAILY metformin 1,000 mg tablet 1,000 mg PO DAILY bupropion HCl 75 mg tablet 75 mg PO BID labetalol 100 mg tablet 100 mg PO BID sodium chloride 1,000 mg tablet,soluble 1,000 mg PO TID varenicline 1 mg tablet 1 mg PO BID albuterol sulfate 90 mcg/actuation HFA aerosol inhaler 2 puff inhalation Q4H PRN PRN (Reason: wheezing) Referrals / Follow Up: Tyra Martell, CHARLY [Primary Care Provider] - Within 1 Week Disposition Disposition (needs filled in before D/C Order can be placed): Home, Self Care 05/02/24 1029 Judson Hairston MD CC: CHARLY Martell Signed Normal [facility] Eosinophil percentageOrdered By: Judson Hairston on 05-02-2024 Eosinophils/100 WBC (Bld) 0.5 % 0-5 [facility] Erythrocyte distribution wid th ratioOrdered By: Judson Hairston on 05-02-2024 Erythrocyte distribution width (RBC) [Ratio] 20.4 % High 11.6-14.6 [facility] Erythrocyte distribution wid th standard deviationOrdered By: Judson Hairston on 05-02-2024 Erythrocyte distribution width (RBC) [Entitic vol] 83.6 fL High 35.1-43.9 [facility] Estimated glomerular filtrat ion rate (GFR) AmericanOrdered By: Judson Hairston on 05-02-2024 Estimated GFR (MDRD) Amer 100 mL/min >60 [facility] Comment on above: GFR Calc Estimation of creatinine feng aranceOrdered By: Judson Hairston on 05-02-2024 Estimated Creatinine Clearance Calc 105.71 ml/min [facility] Glomerular filtration rate ( GFR) estimationOrdered By: Judson Hairston on 05-02-2024 Estimated GFR (MDRD) Non-Af Amer 83 mL/min >60 [facility] Comment on above: Non- GFR Calc Glucose measurementOrdered B y: Judson Hairston on 05-02-2024 Glucose [Mass/Vol] 159 mg/dL High 74-[address] [facility] Comment on above: Fasting Glucose resu lt greater than or equal to 126 mg/dL suggests DIABETES MELLITUS per A.D.A. criteria. Glucose measurement at bedsi deOrdered By: Judson Hairston on 05-02-2024 Bedside Glucose (Misc Panel) 147 mg/dL High 74-106 [facility] Comment on above: MANAGEMENT OF PATIEN T CARE PER NURSING PROTOCOL Hematocrit Auto (Bld) [Volum e fraction]Ordered By: Judson Hairston on 05-02-2024 Hematocrit (Bld) [Volume fraction] 29.8 % Low 40-54 [facility] Hemoglobin measurementOrdere d By: Judson Hairston on 05-02-2024 Hemoglobin (Bld) [Mass/Vol] 9.1 g/dL Low 13.0-16.5 [facility] Immature granulocytes/100 WB C Auto (Bld)Ordered By: Judson Hairston on 05-02-2024 Immature granulocytes/100 WBC (Bld) 0.800 % 0.0-0.9 [facility] Comment on above: IG% - Immature Granu locytes (promyelocytes, myelocytes and metamyelocytes) > 1% indicates that a LEFT SHIFT is Present. Laboratory - Hematology and Cell countsOrdered By: Judson Hairston on 05-02-2024 Anisocytosis Ql (Bld) 2+ [facility] Lymphocytes Auto (Unsp spec) [#/Vol]Ordered By: Judson Hairston on 05-02-2024 Lymphocytes (Bld) [#/Vol] 1.71 10*3/uL 0.83-4.51 [facility] Lymphocytes/100 WBC Auto (Un sp spec)Ordered By: Judson Hairston on 05-02-2024 Lymphocytes/100 WBC (Bld) 22.6 % 19-41 [facility] MCV (mean corpuscular volume ) determinationOrdered By: Judson Hairston on 05-02-2024 MCV (RBC) [Entitic vol] 111.2 fL High 80-94 [facility] Mean corpuscular hemoglobin (MCH) determinationOrdered By: Judson Hairston on 05-02-2024 MCH (RBC) [Entitic mass] 34.0 pg High 27.0-32.0 [facility] Mean corpuscular hemoglobin concentration (MCHC) determinationOrdered By: Judson Hairston on 05-02-2024 MCHC (RBC) [Mass/Vol] 30.5 g/dL Low 32-36 [facility] Mean platelet volume determi nationOrdered By: Judson Hairston on 05-02-2024 Platelet mean volume (Bld) [Entitic vol] 10.1 fL 6.2-12.0 [facility] Monocyte percentageOrdered B y: Judson Hairston on 05-02-2024 Monocytes/100 WBC (Bld) 12.1 % High 0-10 [facility] Neutrophil percentageOrdered By: Judson Hairston on 05-02-2024 Neutrophils/100 WBC (Bld) 63.5 % 47-70 [facility] Nucleated red blood cell per centageOrdered By: Judson Hairston on 05-02-2024 Nucleated RBC/100 WBC (Bld) [Ratio] 0 % 0-5 [facility] Platelet countOrdered By: Richelle Hairston on 05-02-2024 Platelets (Bld) [#/Vol] 354 10*3/uL 150-450 [facility] Potassium measurementOrdered By: Judson Hairston on 05-02-2024 Potassium [Moles/Vol] 3.7 mmol/L 3.5-5.1 [facility] RBC Auto (Bld) [#/Vol]Ordere d By: Judson Hairston on 05-02-2024 RBC (Bld) [#/Vol] 2.68 10*6/uL Low 4.6-6.2 [facility] Serum anion gap measurementO rdered By: Judson Hairston on 05-02-2024 Anion gap [Moles/Vol] 7 mmol/L 5-15 [facility] Serum or plasma calcium troy urement (mass/volume)Ordered By: Judson Hairston on 05-02-2024 Calcium [Mass/Vol] 9.1 mg/dL 8.5-10.[address] [facility] Serum or plasma creatinine m easurement (mass/volume)Ordered By: Judson Hairston on 05-02-2024 Creatinine [Mass/Vol] 0.96 mg/dL 0.70-1.30 [facility] Comment on above: The validity of the calculated GFR & GFRAA in patients over 70 years has not been determined. Clinical correlation is essential. Serum or plasma urea nitroge n measurement (mass/volume)Ordered By: Judson Hairston on 05-02-2024 Urea nitrogen [Mass/Vol] 11 mg/dL 7-18 [facility] Sodium levelOrdered By: Mamadou Hairston on 05-02-2024 Sodium [Moles/Vol] 135 mmol/L Low 136-[address] [facility] White blood cell (WBC) count Ordered By: Judson Hairston on 05-02-2024 WBC (Bld) [#/Vol] 7.6 10*3/uL 4.4-11.[address] [facility] 12 Lead EKGon 05-01-2024 12 Lead EKG [facility] [address] [place] [address] 12 Lead EKG 05/01/24 0006 MR#: [id number] Acct: [id number] Name: ABDIRIZAK COLINDRES Rep #: [id number] : [id number] 69 From: Christiano aJin MD Attending Dr: Dr. Judson Hairston MD Status : ADM CRESCENCIO Ordering Dr: Verito Clement MD Date: 05/01/24 Location: [facility] Sex: M C Admitted: 04/30/24 Test Reason : RHYTHM CHANGED Blood Pressure : */* mmHG Vent. Rate : 139 BPM Atrial Rate : * BPM P-R Int : * ms QRS Dur : 82 ms QT Int : 272 ms P-R-T Axes : * 51 71 degrees QTcB Int : 413 ms Atrial fibrillation with rapid ventricular response Abnormal ECG When compared with ECG of 30-Apr-2024 10:56, MANUAL COMPARISON REQUIRED DATA IS UNCONFIRMED Confirmed by CHRISTIANO JAIN MD ([id number]), editor book LUCY PAGAN ([id number]) on 05/01/2024 2:16:52 PM Referred By: TAMARA Confirmed By: CHRISTIANO JAIN MD 05/01/24 1416 Date Christiano Jain MD CC: CHARLY Martell; Dr. Verito Clement MD; Dr. Judson Hairston MD Signed Normal [facility] Basic Metabolic Profile (BMP )on 05-01-2024 BUN/CRE 13.3 RATIO Normal 10-20 [facility] Comment on above: Performed By: #### L 503.6620, L300.4310, L300.3900 #### [facility] [address] [place], [address] CA,Total 8.3 mg/dL Low 8.5-10.1 [facility] Comment on above: Performed By: #### L 503.6620, L300.4310, L300.3900 #### [facility] [address] [place], [address] Chloride [Moles/Vol] 105 mmol/L Normal 98-107 [facility] Comment on above: Performed By: #### L 503.6620, L300.4310, L300.3900 #### [facility] [address] [place], [address] CO2 [Moles/Vol] 28.0 mmol/L Normal 21.0-32.0 [facility] Comment on above: Performed By: #### L 503.6620, L300.4310, L300.3900 #### [facility] [address] [place], [address] Creatinine [Mass/Vol] 0.83 mg/dL Normal 0.70-1.30 [facility] Comment on above: Result Comment: The validity of the calculated GFR GFRAA in patients over 70 years has not been determined. Clinical correlation is essential. Performed By: #### L 503.6620, L300.4310, L300.3900 #### [facility] [address] [place], [address] ECRCL 122.27 ml/min Normal [facility] Comment on above: Performed By: #### L 503.6620, L300.4310, L300.3900 #### [facility] [address] [place], [address] EST GFR - AA 119 mL/min Normal >60 [facility] Comment on above: Result Comment: Afri can Albanian GFR Calc Performed By: #### L 503.6620, L300.4310, L300.3900 #### [facility] [address] [place], [address] GAP 4 Low 5-15 [facility] Comment on above: Performed By: #### L 503.6620, L300.4310, L300.3900 #### [facility] [address] [place], [address] GFR/1.73 sq M.predicted among non-blacks MDRD (S/P/Bld) [Vol rate/Area] 98 mL/min/{1.73_m2} Normal >60 [facility] Comment on above: Result Comment: Non- GFR Calc Performed By: #### L 503.6620, L300.4310, L300.3900 #### [facility] [address] [place], [address] Glucose [Mass/Vol] 125 mg/dL High 74-[address] [facility] Comment on above: Result Comment: Fast ing Glucose result from 100 to 125 mg/dL suggests IMPAIRED HOMEOSTASIS per A.D.A. criteria. Performed By: #### L 503.6620, L300.4310, L300.3900 #### [facility] [address] [place], [address] Potassium [Moles/Vol] 3.9 mmol/L Normal 3.5-5.1 [facility] Comment on above: Performed By: #### L 503.6620, L300.4310, L300.3900 #### [facility] [address] [place], [address] Sodium [Moles/Vol] 137 mmol/L Normal 136-[address] [facility] Comment on above: Performed By: #### L 503.6620, L300.4310, L300.3900 #### [facility] [address] [place], [address] Urea nitrogen [Mass/Vol] 11 mg/dL Normal 7-18 [facility] Comment on above: Performed By: #### L 503.6620, L300.4310, L300.3900 #### [facility] [address] [place], [address] Bedside Glucoseon 05-01-2024 FINGERSTICK GLU 129 mg/dL High 74-106 [facility] Comment on above: Result Comment: ESTEBAN GEMENT OF PATIENT CARE PER NURSING PROTOCOL Performed By: #### L 503.6620, L300.4310, L300.3900 #### [facility] [address] [place], [address] FINGERSTICK GLU 114 mg/dL High 74-106 [facility] Comment on above: Result Comment: ESTEBAN GEMENT OF PATIENT CARE PER NURSING PROTOCOL Performed By: #### L 503.6620, L300.4310, L300.3900 #### [facility] [address] [place], [address] FINGERSTICK GLU 163 mg/dL High 74-106 [facility] Comment on above: Result Comment: ESTEBAN GEMENT OF PATIENT CARE PER NURSING PROTOCOL Performed By: #### L 503.6620, L300.4310, L300.3900 #### [facility] [address] [place], [address] FINGERSTICK GLU 121 mg/dL High 74-106 [facility] Comment on above: Result Comment: ESTEBAN GEMENT OF PATIENT CARE PER NURSING PROTOCOL Performed By: #### L 501.080 #### [facility] [address] [place], [address] CBC W/Diff, Automatedon 04-21 SMEAR COMMENT SCANNED Normal [facility] Comment on above: Result Comment: 1+ A NISOCYTOSIS Performed By: #### L 503.6620, L300.4310, L300.3900 #### [facility] [address] [place], [address] Lower GI hemoglobin IA Ql (S tl)Ordered By: Judson Hairston on 05-01-2024 Stool Occult Blood (LENNOX) [facility] Manual differential comment Flavio (Bld) [Interp]Ordered By: Judson Hairston on 05-01-2024 Differential Comment SCANNED [facility] Comment on above: 1+ ANISOCYTOSIS Stool Occult Blood iFOBon STOB Negative Normal [facility] Comment on above: Performed By: #### L 503.6620, L300.4310, L300.3900 #### [facility] [address] [place], [place], [address] 12 Lead EKGon 04-30-2024 12 Lead EKG [facility] [address] [place] [address] 12 Lead EKG 04/30/24 1056 MR#: [id number] Acct: [id number] Name: ABDIRIZAK COLINDRES Rep #: [id number] : 1955 69 From: Christiano Jain MD Attending Dr: Dr. Judson Hairston MD Status : ADM CRESCENCIO Ordering Dr: Verito Clement MD Date: 04/30/24 Location: U Sex: M C Admitted: 04/30/24 Test Reason : SOB Blood Pressure : */* mmHG Vent. Rate : 108 BPM Atrial Rate : 108 BPM P-R Int : 170 ms QRS Dur : 80 ms QT Int : 326 ms P-R-T Axes : 59 56 76 degrees QTcB Int : 436 ms Sinus tachycardia Low voltage QRS Borderline ECG Confirmed by CHRISTIANO JAIN MD ([id number]), editor book LUCY PAGAN ([id number]) on 05/01/2024 12:41:12 PM Referred By: Confirmed By: CHRISTIANO JAIN MD 05/01/24 1241 Date Christiano Jain MD CC: CHARLY Martell; Dr. Verito Clement MD; Dr. Judson Hairston MD Signed Normal [facility] 12 Lead EKG [facility] [address] [place] [address] 12 Lead EKG 05/01/24 0234 MR#: [id number] Acct: [id number] Name: ABDIRIZAK COLINDRES Rep #: [id number] : 1955 69 From: Christiano Jain MD Attending Dr: Dr. Judson Hairston MD Status : ADM CRESCENCIO Ordering Dr: Jay Beckett DO Date: 04/30/24 Location: [facility] Sex: M C Admitted: 04/30/24 Test Reason : RHYTHM CHANGE Blood Pressure : */* mmHG Vent. Rate : 92 BPM Atrial Rate : 92 BPM P-R Int : 172 ms QRS Dur : 86 ms QT Int : 360 ms P-R-T Axes : 70 57 72 degrees QTcB Int : 445 ms Normal sinus rhythm Normal ECG When compared with ECG of 01-May-2024 00:06, MANUAL COMPARISON REQUIRED DATA IS UNCONFIRMED Confirmed by CHRISTIANO JAIN MD ([id number]), editor book LUCY PAGAN ([id number]) on 05/01/2024 2:16:42 PM Referred By: TAMARA Confirmed By: CHRISTIANO JAIN MD 05/01/24 1416 Date Christiano Jain MD CC: CHARLY Martell; Dr. Judson Hairston MD; Dr. Jay Beckett DO Signed Normal [facility] BNP (brain natriuretic pepti de measurement)Ordered By: Jay Beckett on 04-30-2024 Natriuretic peptide B (Bld) [Mass/Vol] 87.2 pg/mL 0-100 [facility] BNP,B-Type NATRIURETIC PEPTI Ruddy 04-30-2024 Natriuretic peptide B (Bld) [Mass/Vol] 87.2 pg/mL Normal 0-100 [facility] Comment on above: Performed By: #### L 503.6620, L300.4310, L300.3900 #### [facility] [address] [place], [address] Basic Metabolic Profile (BMP )on 04-30-2024 BUN/CRE 8.8 RATIO Low 10-20 [facility] Comment on above: Order Comment: 'TROP ' Serial specimen #1, #2 or #3: 1 Performed By: #### L 100.0100, L501.5200, L501.9520, L500.2500, L501.4020 #### [facility] [address] [place], [address] CA,Total 8.5 mg/dL Normal 8.5-10.1 [facility] Comment on above: Order Comment: 'TROP ' Serial specimen #1, #2 or #3: 1 Performed By: #### L 100.0100, L501.5200, L501.9520, L500.2500, L501.4020 #### [facility] [address] [place], [address] Chloride [Moles/Vol] 108 mmol/L High 98-107 [facility] Comment on above: Order Comment: 'TROP ' Serial specimen #1, #2 or #3: 1 Performed By: #### L 100.0100, L501.5200, L501.9520, L500.2500, L501.4020 #### [facility] [address] [place], [address] CO2 [Moles/Vol] 25.0 mmol/L Normal 21.0-32.0 [facility] Comment on above: Order Comment: 'TROP ' Serial specimen #1, #2 or #3: 1 Performed By: #### L 100.0100, L501.5200, L501.9520, L500.2500, L501.4020 #### [facility] [address] [place], [address] Creatinine [Mass/Vol] 0.91 mg/dL Normal 0.70-1.30 [facility] Comment on above: Order Comment: 'TROP ' Serial specimen #1, #2 or #3: 1 Result Comment: The validity of the calculated GFR GFRAA in patients over 70 years has not been determined. Clinical correlation is essential. Performed By: #### L 100.0100, L501.5200, L501.9520, L500.2500, L501.4020 #### [facility] [address] [place], [address] ECRCL 111.10 ml/min Normal [facility] Comment on above: Order Comment: 'TROP ' Serial specimen #1, #2 or #3: 1 Performed By: #### L 100.0100, L501.5200, L501.9520, L500.2500, L501.4020 #### [facility] [address] [place], [address] EST GFR - AA 106 mL/min Normal >60 [facility] Comment on above: Order Comment: 'TROP ' Serial specimen #1, #2 or #3: 1 Result Comment: Afri can Albanian GFR Calc Performed By: #### L 100.0100, L501.5200, L501.9520, L500.2500, L501.4020 #### [facility] [address] [place], [address] GAP 5 Normal 5-15 [facility] Comment on above: Order Comment: 'TROP ' Serial specimen #1, #2 or #3: 1 Performed By: #### L 100.0100, L501.5200, L501.9520, L500.2500, L501.4020 #### [facility] [address] [place], [address] GFR/1.73 sq M.predicted among non-blacks MDRD (S/P/Bld) [Vol rate/Area] 88 mL/min/{1.73_m2} Normal >60 [facility] Comment on above: Order Comment: 'TROP ' Serial specimen #1, #2 or #3: 1 Result Comment: Non- GFR Calc Performed By: #### L 100.0100, L501.5200, L501.9520, L500.2500, L501.4020 #### [facility] [address] [place], [address] Glucose [Mass/Vol] 130 mg/dL High 74-[address] [facility] Comment on above: Order Comment: 'TROP ' Serial specimen #1, #2 or #3: 1 Result Comment: Fast ing Glucose result greater than or equal to 126 mg/dL suggests DIABETES MELLITUS per A.D.A. criteria. Performed By: #### L 100.0100, L501.5200, L501.9520, L500.2500, L501.4020 #### [facility] [address] [place], [address] Potassium [Moles/Vol] 4.7 mmol/L Normal 3.5-5.1 [facility] Comment on above: Order Comment: 'TROP ' Serial specimen #1, #2 or #3: 1 Performed By: #### L 100.0100, L501.5200, L501.9520, L500.2500, L501.4020 #### [facility] [address] [place], [address] Sodium [Moles/Vol] 138 mmol/L Normal 136-[address] [facility] Comment on above: Order Comment: 'TROP ' Serial specimen #1, #2 or #3: 1 Performed By: #### L 100.0100, L501.5200, L501.9520, L500.2500, L501.4020 #### [facility] [address] [place], [address] Urea nitrogen [Mass/Vol] 8 mg/dL Normal 7-18 [facility] Comment on above: Order Comment: 'TROP ' Serial specimen #1, #2 or #3: 1 Performed By: #### L 100.0100, L501.5200, L501.9520, L500.2500, L501.4020 #### [facility] [address] [place], [address] Bedside Glucoseon 04-30-2024 FINGERSTICK GLU 137 mg/dL High 74-106 [facility] Comment on above: Result Comment: ESETBAN JOHN OF PATIENT CARE PER NURSING PROTOCOL Performed By: #### L 501.080 #### [facility] [address] [place], [address] CBC W/Diff, Automatedon - Anisocytosis Ql (Bld) 2+ Normal [facility] Comment on above: Performed By: #### L 100.0100, L501.5200, L501.9520, L500.2500, L501.4020 #### [facility] [address] [place], [address] CNPNon 04-30-2024 CNPN Normal [facility] Chest PA and Lateralon 04-30 Chest PA and Lateral [facility] Imaging Services [address] [place] [address] Chest PA and Lateral MR#: [id number] Acct: [id number] Name: ABDIRIZAK COLINDRES Rep #: [id number] : 1955 M 69 From: Orlin hylton MD PCP: Tyra Martell, SOLE TACKER Status: REG ER Study: Chest PA and Lateral Date of Exam: 04/30/24 Exam# [id number] Ordering Dr: Jay Beckett DO [id number] STUDY: X-RAY CHEST REASON FOR EXAM: Male, 69 years old. Shortness of breath. Bilateral lower extremity edema. TECHNIQUE: PA and lateral views of the chest. COMPARISON: Comparison is made with prior study dated December 12, 2006. FINDINGS: EKG electrodes are seen. Impression congestion mild CHF with superimposed bibasilar atelectasis. Blunting of both costophrenic angles. Normal size heart. Normal mediastinum and sheri. Normal visualized pulmonary arteries. There is atherosclerotic calcification of the aortic arch with tortuosity. There are diffuse degenerative changes of the visualized thoracic spine. Normal visualized ribs, clavicles, and shoulders. There is no demonstrated abnormality of the visualized soft tissue structures of the upper abdomen. RAD/Chest PA and Lateral IMPRESSION: Findings suggestive of a vascular congestion and CHF with bibasilar atelectasis. Electronically Signed: Orlin Bales MD at 10:49 EST Reading Location ID and State: [facility] / [place] , Service support , CC: CHARLY Martell; Dr. Jay Beckett DO Physician Scientist: Signed Normal [facility] Echo Complete W/ Contraston 04-30-2024 Echo Complete W/ Contrast [facility] [address] [place] [address] Echo Complete W/ Contrast 04/30/24 1427 MR#: [id number] Acct: [id number] Name: ABDIRIZAK COLINDRES Rep #: [id number] : 1955 69 From: Christiano Jain MD Attending Dr: Dr. Judson Hairston MD Status : ADM CRESCENCIO Ordering Dr: Judson Hairston MD Date: 04/30/24 Location: [facility] Sex: M C Admitted: 04/30/24 Reason For Study: SHORTNESS OF BREATH Procedure This was a 2D Doppler, Color Flow transthoracic echocardiogram. The study was technically difficult. Contrast injection was performed. Exam performed portable in patient room. Left Ventricle Normal LV size. Left ventricular systolic function is normal. The left ventricular ejection fraction is 55 %. No regional wall motion abnormalities noted. Right Ventricle Normal RV size. Normal systolic function. Atria Normal left atrium. Normal right atrium. Mitral Valve There is mild to moderate mitral annular calcification. Tricuspid Valve Normal tricuspid valve. Aortic Valve Trisinus/trileaflet aortic valve. Great Vessels Normal aortic root. The pulmonary artery is normal size. Normal inferior vena cava. Pericardium/Pleural No pericardial effusion. Medication Diluted definity 2ml given slow IV push to enhance endocardial definition. MMode/2D Measurements Calculations LVIDd: 4.5 cm IVSd: 1.6 cm LVOT diam: 2.2 cm LVIDs: 2.5 cm LVPWd: 1.2 cm LVOT area: 3.7 cm2 RVDd: 3.8 cm FS: 46.0 % asc Aorta Diam: 3.6 cm LAV(MOD-bp): 60.5 ml LVAd ap4: 37.2 cm2 LAV(MOD-bp) Indexed: 23.9 ml/m2 LVLd ap4: 9.2 cm LAV(MOD-sp2): 66.2 ml EDV(MOD-sp4): 125.1 ml LAV(MOD-sp4): 52.3 ml EDV(sp4-el): 128.2 ml LVAs ap4: 24.6 cm2 LVLs ap4: 7.6 cm ESV(MOD-sp4): 67.0 ml ESV(sp4-el): 67.4 ml EF(MOD-sp4): 46.5 % EF(sp4-el): 47.5 % LVAd ap2: 34.1 cm2 SV(MOD-sp4): 58.1 ml SV(MOD-sp2): 56.9 ml LVLd ap2: 8.5 cm SI(MOD-sp4): 23.0 ml/m2 SI(MOD-sp2): 22.5 ml/m2 EDV(MOD-sp2): 112.7 ml EDV(sp2-el): 116.2 ml LVAs ap2: 23.4 cm2 LVLs ap2: 8.1 cm ESV(MOD-sp2): 55.7 ml ESV(sp2-el): 57.2 ml EF(MOD-sp2): 50.5 % SV(sp4-el): 60.9 ml Ao sinus diam: 3.[address] Junction: 2.4 cm LA dimension(2D): 3.9 cm LA A4 area: 18.8 cm2 RA A4 area: 15.9 cm2 TAPSE: 2.4 cm Time Measurements MV dec time: 0.09 sec Doppler Measurements Calculations MV E max alexys: 140.0 cm/sec Lat Peak E' Alexys: 10.0 cm/sec Med Peak E' Alexys: 10.0 cm/sec E/E' lat: 14.0 E/E' med: 14.0 MV V2 max: 181.5 cm/sec Ao V2 max: 221.4 cm/sec LV V1 max: 119.4 cm/sec MV max P.2 mmHg Ao max P.8 mmHg LV V1 max P.7 mmHg MV V2 mean: 134.9 cm/sec Ao V2 mean: 145.8 cm/sec LV V1 mean P.3 mmHg MV mean P.6 mmHg Ao mean P.7 mmHg LV V1 mean: 88.0 cm/sec MV V2 VTI: 31.6 cm Ao V2 VTI: 44.2 cm LV V1 VTI: 25.6 cm MVA(VTI): 3.0 cm2 AV (velocity ratio): 0.58 IMANI(I,D): 2.2 cm2 IMANI(V,D): 2.0 cm2 SV(LVOT): 95.5 ml PA V2 max: 86.5 cm/sec ECHO/Echo Complete W/ Contrast Interpretation Summary Normal LV size. Left ventricular systolic function is normal. The left ventricular ejection fraction is 55 %. Contrast injection was performed. The study was technically difficult. Ordering Physician: Judson Hairston Performed By: Kat Santizo RDCS and Student 04/30/24 1645 Date Christiano Jain MD CC: CHARLY Martell; Dr. Judson Hairston MD Date Dictated: 04/30/24 1427 Date Transcribed: 04/30/241644 Physician Scientist: Signed Normal [facility] Emergency Department Summary on 04-30-[address] [facility] Medical Records Department [address] [place] [address] Emergency Department Summary 04/30/24 MR#: [id number] Acct: [id number] Name: ABDIRIZAK COLINDRES Rep #: [id number] : 1955 69 From: Jay Beckett DO PCP: CHARLY Monson Status:REG ER Location: ED HPI History of Present Illness Chief Complaint: Shortness of Breath Narrative Narrative: Patient is a 69-year-old male with a past medical history of stage IV lung cancer underwent chemotherapy not actively getting treated currently as he completed the regimen, hypertension who presents to the emergency department with a chief complaint of lower extremity swelling and shortness of breath. Patient states that yesterday he noted that he had swelling in his feet and then when he woke up this morning he had significant swelling in his lower extremities bilaterally. He states that he has a lot of difficulty with walking as he becomes very short of breath with minimal exertion. He states that he does not have a history of heart failure to his knowledge. Patient states that he did have a history of a blood clot several years ago after a knee surgery however notes that he has not had 1 since. [facility] Medical History Lung cancer Home Medications ???Medication ???Instructions ???Recorded ???Last Taken ???Type lisinopril 10 mg tablet 40 mg PO DAILY 04/30/13 Unknown History omeprazole 20 mg capsule,delayed 20 mg PO DAILY 04/30/13 05/06/13 08:28 History release simvastatin 20 mg tablet 20 mg PO QHS 04/30/13 Unknown History aspirin 325 mg tablet,delayed 325 mg PO BID ##60 05/08/13 Unknown Rx release amlodipine 5 mg tablet 5 mg PO DAILY 01/17/20 Unknown History cyclobenzaprine 10 mg tablet 10 mg PO TID 01/17/20 Unknown History sertraline 50 mg tablet 50 mg PO DAILY 01/17/20 Unknown History Allergy/AdvReac Type Severity Reaction Status Date / Time oxycodone HCl (From Allergy Rash Verified 04/30/24 09:49 OxyContin) Social History Smoking Status: Former smoker ROS ROS ED ROS Narrative Constitutional: Denies any fevers, chills, lightness, dizziness Eyes: Denies change in vision double vision blurry vision Cardiovascular: Denies chest pain or palpitations Respiratory: Complains of shortness of breath as noted above denies coughing or wheezing Abdomen: Denies abdominal pain nausea vomit diarrhea : Denies any urinary symptoms Neurological: Denies any numbness, weakness, tingling Musculoskeletal: Complains of bilateral lower extremity swelling as noted above, denies back pain Skin: Denies any rashes or lesions EXAM Physical Exam Narrative Exam Narrative: General: Patient was lying in bed rest comfortably did not appear to be in acute distress Head: Atraumatic, normocephalic Eyes: PERRL bilateral, EOMI biotic no conjunctival injection noted Neck: Soft, supple, trachea midline Cardiovascular: Patient tachycardic with a regular rhythm no murmurs gallops rubs noted Respiratory: Diminished breath sounds at the bases bilaterally Abdomen: Soft, nondistended, no tenderness palpation Extremities: +4/5 strength noted in the bilateral upper and lower extremities, patient has 3+ pitting edema in the bilateral lower extremities Neurological: Patient following commands knew he was at [facility] years 2023 Skin: Warm, dry, intact Const Vital Signs: 04/30/24 09:49 04/30/24 09:49 04/30/24 09:52 Temperature 98.9 F 98.2 F Temperature Source Oral Oral Pulse Rate 117 H 108 H 109 H Respiratory Rate 22 H 15 Respiratory Effort Respiratory Depth Respiratory Pattern Blood Pressure 158/98 H 163/89 H Blood Pressure Mean 118 113 Pulse Ox 97 96 Oxygen Delivery Method Room Air Room Air 04/30/24 09:58 04/30/24 10:08 04/30/24 10:52 Temperature 98.2 F Temperature Source Oral Pulse Rate 108 H Respiratory Rate 16 Respiratory Effort Short of Breath Respiratory Depth Shallow Respiratory Pattern Normal Blood Pressure 171/93 H Blood Pressure Mean 119 Pulse Ox 95 93 Oxygen Delivery Method Room Air Room Air Room Air 04/30/24 11:00 04/30/24 12:00 04/30/24 12:06 Temperature 98.3 F 98.4 F Temperature Source Oral Oral Pulse Rate 103 H 91 82 Respiratory Rate 18 17 17 Respiratory Effort Respiratory Depth Respiratory Pattern Blood Pressure 185/84 H 146/83 H 140/86 H Blood Pressure Mean 117 104 104 Pulse Ox 94 95 95 Oxygen Delivery Method Room Air Room Air Room Air MDM MDM MDM Narrative Medical decision making narrative: Patient is a 69-year-old male who presents to the emergency department chief complaint of dyspnea on exertion and bilateral (more content not included)... Normal [facility] Ferritinon 04-30-2024 Ferritin [Mass/Vol] 217 ng/mL Normal 26-388 [facility] Comment on above: Performed By: #### L 503.6620, L300.4310, L300.3900 #### [facility] [address] [place], [address] Ferritin measurementOrdered By: Judson Hairston on 04-30-2024 Ferritin [Mass/Vol] 217 ng/mL 26-388 [facility] H AND P Exam - Hospitaliston 04-30-2024 H&P Exam - Hospitalist [facility] Medical Records Department [address] [place] [address] H P Exam - Hospitalist 04/30/24 1446 MR#: [id number] Acct: [id number] Name: ABDIRIZAK COLINDRES Rep #: [id number] : 1955 69 From: Judson Hairston MD PCP: Tyra Martell, SOLE TACKER Status:ADM CRESCENCIO Location: [place] [address] HPI - General General Date of Admission: 04/30/24 HPI Narrative ABDIRIZAK COLINDRES, is a 69 M who presents to the hospital with shortness of breath. He says it has been going on for couple weeks as he has been getting worse. He is also has lower extremity edema which is new. It is bilateral. He has been noticing difficulty with laying flat and increased dyspnea on exertion. He denies any chest pain or lightheadedness. He does have a history of stage IV lung cancer that he is undergoing chemotherapy for may believe that he will be starting immunotherapy in a couple weeks. He follows with [facility] oncology. Of note his hemoglobin is 8.3 which has started to drops in January, it does appear that he has had a workup at the [facility] as his MCV is elevated, his B12 folic acid. His retake count and his absolute retake count were both elevated, and his iron studies were normal. In the ER he had an amatory pulse ox of 86% on room air though he is satting normally at rest on room air. BNP was also normal which could be falsely low secondary to his morbid obesity. [facility] Medical History Lung cancer Home Medications ???Medication ???Instructions ???Recorded ???Last Taken ???Type omeprazole 20 mg capsule,delayed 20 mg PO DAILY 04/30/13 04/30/24 History release cyclobenzaprine 10 mg tablet 10 mg PO TID PRN spasms 01/17/20 Unknown History albuterol sulfate 90 mcg/actuation 2 puff inhalation Q4H PRN PRN 04/30/24 Unknown History aerosol inhaler wheezing bupropion HCl 75 mg tablet 75 mg PO BID mood 04/30/24 04/30/24 History labetalol 100 mg tablet 100 mg PO BID blood pressure 04/30/24 04/30/24 History levothyroxine 50 mcg tablet 50 mcg PO DAILY disorder of 04/30/24 04/30/24 History thyroid gland metformin 1,000 mg tablet 1,000 mg PO DAILY diabetes 04/30/24 Unknown History naltrexone 50 mg tablet 50 mg PO DAILY 04/30/24 04/29/24 History simvastatin 40 mg tablet 40 mg PO QHS cholesterol 04/30/24 04/29/24 History sodium chloride 1,000 mg soluble 1,000 mg PO TID supplement 04/30/24 04/29/24 History tablet tamsulosin 0.4 mg capsule 0.4 mg PO QHS urine flow 04/30/24 04/29/24 History varenicline 1 mg tablet 1 mg PO BID quit smoking 04/30/24 04/29/24 History Allergy/AdvReac Type Severity Reaction Status Date / Time oxycodone HCl (From Allergy Rash Verified 04/30/24 13:16 OxyContin) Family History (Updated 04/30/24 @ 16:[address] Judson Hairston MD) Other Heart disease Surgical History (Updated 04/30/24 @ 16:[address] Judson Hairston MD) History of knee replacement Social History (Updated 04/30/24 @ 13:46 by Opal Plata) Smoking Status: Former smoker ROS Constitutional Constitutional: Denies chills, fatigue, fever(s) or malaise Eyes Eyes: Denies blurry vision ENT HEENT: Denies headache(s) or nasal discharge Cardiovascular Cardiovascular: Reports edema and orthopnea; Denies chest pain, dyspnea on exertion or syncope Respiratory/Chest Respiratory/Chest: Reports shortness of breath with exertion; Denies cough or shortness of breath at rest Gastrointestinal Gastrointestinal: Denies constipation, diarrhea, nausea or vomiting Genitourinary Genitourinary: Denies dysuria Neurologic Neurologic: Denies focal weakness, numbness or tremor(s) Psychiatric Psychiatric: Denies anxiety or depression Vital Signs Vital Signs Vital Signs: 04/30/24 09:49 04/30/24 09:49 04/30/24 09:52 Temperature 98.9 F 98.2 F Temperature Source Oral Oral Pulse Rate 117 H 108 H 109 H Respiratory Rate 22 H 15 Respiratory Effort Respiratory Depth Respiratory Pattern Blood Pressure 158/98 H 163/89 H Blood Pressure Mean 118 113 Blood Pressure Source Blood Pressure Position Pulse Ox 97 96 Oxygen Delivery Method Room Air Room Air 04/30/24 09:58 04/30/24 10:08 04/30/24 10:52 Temperature 98.2 F Temperature Source Oral Pulse Rate 108 H Respiratory Rate 16 Respiratory Effort Short of Breath Respiratory Depth Shallow Respiratory Pattern Normal Blood Pressure 171/93 H Blood Pressure Mean 119 Blood Pressure Source Blood Pressure Position Pulse Ox 95 93 Oxygen Delivery Method Room Air Room Air Room Air 04/30/24 11:00 04/30/24 12:00 04/30/24 12:06 Temperature 98.3 F 98.4 F Temperature Source Oral Oral Pulse Rate 103 H 91 82 Respiratory Rate 18 17 17 Respiratory Effort Resp (more content not included)... Normal [facility] International normalized rat io (INR) calculationOrdered By: Jay Beckett on 04-30-2024 INR Coag (Bld) [Relative time] 1.1 {INR} [facility] Iron (Unsp spec) [Mass/Mass] Ordered By: Judson Hairston on 04-30-2024 Iron [Mass/Vol] 61 ug/dL Low 65-175 [facility] Iron saturation [Mass fracti on]Ordered By: Judson Hairston on 04-30-2024 Iron Saturation 16.8 % 15.0-55.0 [facility] Iron+Iron Binding Capacityon 04-30-2024 Iron [Mass/Vol] 61 ug/dL Low 65-175 [facility] Comment on above: Performed By: #### L 503.6620, L300.4310, L300.3900 #### [facility] [address] [place], [address] IRON SATURATION 16.8 Normal 15.0-55.0 [facility] Comment on above: Performed By: #### L 503.6620, L300.4310, L300.3900 #### [facility] [address] [place], [address] TIBC 363 ug/dL Normal 250-450 [facility] Comment on above: Performed By: #### L 503.6620, L300.4310, L300.3900 #### [facility] [address] [place], [address] L501.4020on 04-30-2024 TROPONIN-I HS 12 pg/mL Normal 3.0-78.0 [facility] Comment on above: Order Comment: 'TROP ' Serial specimen #1, #2 or #3: 1 Result Comment: Noemi aggarwal Note: New Test Units and Gender Specific Reference Ranges. For more information see Policy Stat Procedure Ferney High Sensitivity Troponin (TNIH) and attachments. Performed By: #### L 100.0100, L501.5200, L501.9520, L500.2500, L501.4020 #### [facility] [address] [place], [address] Magnesiumon 04-30-2024 Magnesium [Mass/Vol] 2.1 mg/dL Normal 1.6-2.6 [facility] Comment on above: Order Comment: 'TROP ' Serial specimen #1, #2 or #3: 1 Performed By: #### L 100.0100, L501.5200, L501.9520, L500.2500, L501.4020 #### [facility] [address] [place], [address] Magnesium measurementOrdered By: Jay Beckett on 04-30-2024 Magnesium [Mass/Vol] 2.1 mg/dL 1.6-2.6 [facility] Partial Thromboplast Timeon 04-30-2024 aPTT Coag (Bld) [Time] 31.2 s Normal 24.1-36.2 [facility] Comment on above: Performed By: #### L 503.6620, L300.4310, L300.3900 #### [facility] [address] [place], [address] Prothrombin Time w/INRon INR Coag (PPP) [Relative time] 1.1 {INR} Normal [facility] Comment on above: Performed By: #### L 503.6620, L300.4310, L300.3900 #### [facility] [address] [place], [address] PT Coag (PPP) [Time] 13.8 s Normal 11.7-14.9 [facility] Comment on above: Performed By: #### L 503.6620, L300.4310, L300.3900 #### [facility] [address] [place], [address] Prothrombin timeOrdered By: Jay Beckett on 04-30-2024 PT Coag (PPP) [Time] 13.8 s 11.7-14.9 [facility] TIBCOrdered By: Judson short on 04-30-2024 Total Iron Binding Capacity 363 ug/dL 250-450 [facility] TSH QnOrdered By: Jay erickson on 04-30-2024 Thyroid Stimulating Hormone (TSH) 1.770 uIU/mL 0.358-3.740 [facility] Thyroid Stim Hormone (TSH)on 04-30-2024 TSH 1.770 uIU/mL Normal 0.358-3.740 [facility] Comment on above: Order Comment: 'TROP ' Serial specimen #1, #2 or #3: 1 Performed By: #### L 100.0100, L501.5200, L501.9520, L500.2500, L501.4020 #### [facility] [address] [place], [place], [address] Troponin IOrdered By: Jay Beckett on 04-30-2024 Troponin I High Sensitivity 12 pg/mL 3.0-78.0 [facility] Comment on above: Please Note: New Ange t Units and Gender Specific Reference Ranges. For more information see Policy Stat Procedure Ferney High Sensitivity Troponin (TNIH) and attachments. aPTT Coag (PPP) [Time]Ordere d By: Jay Beckett on 04-30-2024 aPTT Coag (Bld) [Time] 31.2 s 24.1-36.2 [facility] CBC W Auto Differential pane l (Bld)on 04-25-2024 Anisocytosis Ql (Bld) Present Normal [facility] Comment on above: Order Comment: Speci men Type: BLOOD SPECIMENOrdering Facility: [facility] Address: [facility] [place] [address] Performed By: #### 5 7021-8 ####[facility] STACE[facility] MILLTOWNCLIA [id number] [address] LABORATORYCLIA [id number] [place] [address] [place]#### 51580-7 ####[facility] MILLTOWNCLIA [id number] [place] [address] [place] Basophils (Bld) [#/Vol] 0.00 10*3/uL Normal <0.11 [facility] Comment on above: Order Comment: Speci men Type: BLOOD SPECIMENOrdering Facility: [facility] Address: [address] [place] [address] Performed By: #### 5 7021-8 ####[facility] MILLTOWNCLIA [id number] [address] LABORATORYCLIA [id number] [address] [place]#### 36898-2 ####[facility] STACEY MILLTOWNCLIA [id number] [place] [address] [place] Basophils/100 WBC (Bld) 0.0 % Normal [facility] Comment on above: Order Comment: Speci men Type: BLOOD SPECIMENOrdering Facility: [facility] Address: [facility] [place] [address] Performed By: #### 5 7021-8 ####[facility] MILLTOWNCLIA [id number] [address] LABORATORYCLIA [id number] [place] [address] [place]#### 01014-7 ####[facility] MILLTOWNCLIA [id number] [place] [address] [place] Dacrocytes LM Ql (Bld) Few Normal Cl [facility] Comment on above: Order Comment: Speci men Type: BLOOD SPECIMENOrdering Facility: [facility] Address: [address] [place] [address] Performed By: #### 5 7021-8 ####[facility] MILLTOWNCLIA [id number] [address] LABORATORYCLIA [id number] [place] [address] [place]#### 47456-2 ####[facility] MILLWNCLIA [id number] [place] [address] [place] Differential cell count method Nom (Bld) Manual Normal [facility] Comment on above: Order Comment: Speci men Type: BLOOD SPECIMENOrdering Facility: [facility] Address: [address] [place] [address] Performed By: #### 5 7021-8 ####[facility] MILLTOWNCLIA [id number] [address] LABORATORYCLIA [id number] [address] OF [facility]#### 91157-5 ####[facility] MILLTOWNCLIA [id number] [place] [address] [place] Eosinophils (Bld) [#/Vol] 0.00 10*3/uL Normal <0.46 [facility] Comment on above: Order Comment: Speci men Type: BLOOD SPECIMENOrdering Facility: [facility] Address: [address] [place] [address] Performed By: #### 5 7021-8 ####[facility] MILLTOWNCLIA [id number] [address] LABORATORYCLIA [id number] [address]#### 50162-4 ####[facility] MILLTOWNCLIA [id number] [place] [address] [place] Eosinophils/100 WBC (Bld) 0.0 % Normal [facility] Comment on above: Order Comment: Speci men Type: BLOOD SPECIMENOrdering Facility: [facility] Address: [address] [place] [address] Performed By: #### 5 7021-8 ####[facility] ORVILLETOWNCLIA [id number] [address] LABORATORYCLIA [id number] [address]#### 50375-1 ####[facility] ORVILLEWNCLIA [id number] [place] [address] [place] Erythrocyte distribution width (RBC) [Ratio] 21.7 % High 11.5-15.0 [facility] Comment on above: Order Comment: Speci men Type: BLOOD SPECIMENOrdering Facility: [facility] Address: [address] [place] [address] Performed By: #### 5 7021-8 ####[facility] MILLTOWNCLIA [id number] [address] LABORATORYCLIA [id number] [address] OF [facility]#### 44303-2 ####[facility] MILLTOWNCLIA [id number] [place] [address] [place] Giant platelets LM Ql (Bld) Occasional Normal [facility] Comment on above: Order Comment: Speci men Type: BLOOD SPECIMENOrdering Facility: [facility] Address: [address] [place] [address] Performed By: #### 5 7021-8 ####[facility] MILLTOWNCLIA [id number] [address] LABORATORYCLIA [id number] [place] [address] [place]#### 74232-5 ####[facility] MILLTOWNCLIA [id number] [place] [address] [place] Hematocrit (Bld) [Volume fraction] 25.8 % Low 39.0-51.0 [facility] Comment on above: Order Comment: Speci men Type: BLOOD SPECIMENOrdering Facility: [facility] Address: [address] [place] [address] Performed By: #### 5 7021-8 ####[facility] MILLTOWNCLIA [id number] [address] LABORATORYCLIA [id number] [address]#### 54697-3 ####[facility] MILLTOWNCLIA [id number] [place] [address] [place] Hemoglobin (Bld) [Mass/Vol] 8.0 g/dL Low 13.0-17.0 [facility] Comment on above: Order Comment: Speci men Type: BLOOD SPECIMENOrdering Facility: [facility] Address: [address] [place] [address] Performed By: #### 5 7021-8 ####[facility] MILLTOWNCLIA [id number] [address] LABORATORYCLIA [id number] [place] [address] [place]#### 08893-5 ####[facility] MILLWNCLIA [id number] [place] [address] [place] Lymphocytes (Bld) [#/Vol] 1.41 10*3/uL Normal 1.00-4.00 [facility] Comment on above: Order Comment: Speci men Type: BLOOD SPECIMENOrdering Facility: [facility] Address: [address] [place] [address] Performed By: #### 5 7021-8 ####[facility] CENTERWNCLIA [id number] [address] LABORATORYCLIA [id number] [place] [address] [place]#### 34478-6 ####[facility] CENTERWNCLIA [id number] [place] [address] [place] Lymphocytes/100 WBC (Bld) 16.0 % Normal [facility] Comment on above: Order Comment: Speci men Type: BLOOD SPECIMENOrdering Facility: [facility] Address: [address] [place] [address] Performed By: #### 5 7021-8 ####[facility] MILLTOWNCLIA [id number] [address] LABORATORYCLIA [id number] [place] [address] [place]#### 96714-7 ####[facility] MILLWNCLIA [id number] [place] [address] [place] MCH (RBC) [Entitic mass] 34.5 pg High 26.0-34.0 [facility] Comment on above: Order Comment: Speci men Type: BLOOD SPECIMENOrdering Facility: [facility] Address: [address] [place] [address] Performed By: #### 5 7021-8 ####[facility] MILLTOWNCLIA [id number] [address] LABORATORYCLIA [id number] [place] [address] [place]#### 54144-9 ####[facility] MILLTOWNCLIA [id number] [place] [address] [place] MCHC (RBC) [Mass/Vol] 31.0 g/dL Normal 30.5-36.0 [facility] Comment on above: Order Comment: Speci men Type: BLOOD SPECIMENOrdering Facility: [facility] Address: [address] [place] [address] Performed By: #### 5 7021-8 ####[facility] MILLTOWNCLIA [id number] [address] LABORATORYCLIA [id number] [address] [place]#### 87221-6 ####[facility] MILLTOWNCLIA [id number] [place] [address] [place] MCV (RBC) [Entitic vol] 111.2 fL High 80.0-100.0 [facility] Comment on above: Order Comment: Speci men Type: BLOOD SPECIMENOrdering Facility: [facility] Address: [address] [place] [address] Performed By: #### 5 7021-8 ####[facility] MILLTOWNCLIA [id number] [address] LABORATORYCLIA [id number] [address] [place]#### 49440-5 ####[facility] KANDYNCLIA [id number] [place] [address] [place] Metamyelocytes/100 WBC (Bld) 1.0 % Normal [facility] Comment on above: Order Comment: Speci men Type: BLOOD SPECIMENOrdering Facility: [facility] Address: [address] [place] [address] Performed By: #### 5 7021-8 ####[facility] TAMMYWLORENZOLIA [id number] [address] LABORATORYCLIA [id number] [address] [place]#### 10759-6 ####[facility]ENTERA [id number] [place] [address] [place] Monocytes (Bld) [#/Vol] 1.06 10*3/uL High <0.87 [facility] Comment on above: Order Comment: Speci men Type: BLOOD SPECIMENOrdering Facility: [facility] Address: [address] [place] [address] Performed By: #### 5 7021-8 ####[facility] TAMMYWLORENZOLIA [id number] [address] LABORATORYCLIA [id number] [address] [place]#### 73153-0 ####[facility]LELAKE [facility] [id number] [address] [place] Monocytes/100 WBC (Bld) 12.0 % Normal [facility] Comment on above: Order Comment: Speci men Type: BLOOD SPECIMENOrdering Facility: [facility] Address: [address] [place], [place] [address] Performed By: #### 5 7021-8 ####[facility] MILLTOWNCLIA [id number] [address] LABORATORYCLIA [id number] [address] [place]#### 66159-1 ####[facility] MILLTOWNCLIA [id number] [place] [address] [place] MYELO% 1.0 % Normal [facility] Comment on above: Order Comment: Speci men Type: BLOOD SPECIMENOrdering Facility: [facility] Address: [address] [place] [address] Performed By: #### 5 7021-8 ####[facility] MILLTOWNCLIA [id number] [address] LABORATORYCLIA [id number] [place] [address] [facility] [place]#### 11778-6 ####[facility] MILLTOWNCLIA [id number] [place] [address] [place] Neutrophils (Bld) [#/Vol] 6.17 10*3/uL Normal 1.45-7.50 [facility] Comment on above: Order Comment: Speci men Type: BLOOD SPECIMENOrdering Facility: [facility] Address: [address] [place] [address] Performed By: #### 5 7021-8 ####[facility] MILLTOWNCLIA [id number] [address] LABORATORYCLIA [id number] [address] [place]#### 88800-8 ####[facility] MILLTOWNCLIA [id number] [place] [address] [place] Neutrophils/100 WBC (Bld) 70.0 % Normal [facility] Comment on above: Order Comment: Speci men Type: BLOOD SPECIMENOrdering Facility: [facility] Address: [address] [place] [address] Performed By: #### 5 7021-8 ####[facility] MILLTOWNCLIA [id number] [address] LABORATORYCLIA [id number] [place] [address] [place]#### 05024-0 ####[facility] MILLTOWNCLIA [id number] [place] [address] [place] Nucleated RBC (Bld) [#/Vol] 10*3/uL Normal <0.01 [facility] Comment on above: Order Comment: Speci men Type: BLOOD SPECIMENOrdering Facility: [facility] Address: [address] [place] [address] Performed By: #### 5 7021-8 ####[facility] ORVILLETOWNCLIA [id number] [address] LABORATORYCLIA [id number] [place] [address] [place]#### 74954-3 ####[facility] MILLTOWNCLIA [id number] [place] [address] [place] Nucleated RBC/100 WBC (Bld) [Ratio] 0.0 /100 WBC Normal [facility] Comment on above: Order Comment: Speci men Type: BLOOD SPECIMENOrdering Facility: [facility] Address: [address] [place] [address] Performed By: #### 5 7021-8 ####[facility] MILLTOWNCLIA [id number] [address] LABORATORYCLIA [id number] [place] [address] [place]#### 39613-7 ####[facility] MILLTOWNCLIA [id number] [place] [address] [place] Ovalocytes LM Ql (Bld) Few Normal Cl [facility] Comment on above: Order Comment: Speci men Type: BLOOD SPECIMENOrdering Facility: [facility] Address: [address] [place] [address] Performed By: #### 5 7021-8 ####[facility] CENTERWNCLIA [id number] [address] LABORATORYCLIA [id number] [place] [address] [place]#### 56397-9 ####[facility] CENTERWTNLIA [id number] [place] [address] [place] Platelet mean volume (Bld) [Entitic vol] 10.1 fL Normal 9.0-12.7 [facility] Comment on above: Order Comment: Speci men Type: BLOOD SPECIMENOrdering Facility: [facility] Address: [address] [place] [address] Performed By: #### 5 7021-8 ####[facility] MILLTOWNCLIA [id number] [address] LABORATORYCLIA [id number] [place] [address] [place]#### 65328-7 ####[facility]ENTERNCLIA [id number] [place] [address] [place] Platelets (Bld) [#/Vol] 407 10*3/uL High 150-400 [facility] Comment on above: Order Comment: Speci men Type: BLOOD SPECIMENOrdering Facility: [facility] Address: [address] [place] [address] Performed By: #### 5 7021-8 ####[facility] MILLTOWNCLIA [id number] [address] LABORATORYCLIA [id number] [place] [address] [place]#### 52532-2 ####[facility] MILLWNCLIA [id number] [place] [address] [place] Platelets Estimate (Bld) [#/Vol] Increased Normal [facility] Comment on above: Order Comment: Speci men Type: BLOOD SPECIMENOrdering Facility: [facility] Address: [address] [place] [address] Performed By: #### 5 7021-8 ####[facility] MILLTOWNCLIA [id number] [address] LABORATORYCLIA [id number] [place] [address] [place]#### 21151-5 ####[facility] MILLWNCLIA [id number] [place] [address] [place] Polychromasia LM Ql (Bld) Slight Normal [facility] Comment on above: Order Comment: Speci men Type: BLOOD SPECIMENOrdering Facility: [facility] Address: [address] [place] [address] Performed By: #### 5 7021-8 ####[facility] MILLTOWNCLIA [id number] [address] LABORATORYCLIA [id number] [place] [address] [place]#### 24229-2 ####[facility] MILLTOWNCLIA [id number] [place] [address] [place] RBC (Bld) [#/Vol] 2.32 10*6/uL Low 4.20-6.00 [facility] Comment on above: Order Comment: Speci men Type: BLOOD SPECIMENOrdering Facility: [facility] Address: [address] [place] [address] Performed By: #### 5 7021-8 ####[facility] MILLTOWNCLIA [id number] [address] LABORATORYCLIA [id number] [address]#### 81112-2 ####[facility]ENTERNCLIA [id number] [place] [address] [place] RED CELL MORPH Reviewed: see result s of individual morphologies Normal [facility] Comment on above: Order Comment: Speci men Type: BLOOD SPECIMENOrdering Facility: [facility] Address: [address] [place] [address] Performed By: #### 5 7021-8 ####[facility]ENTERWNCLIA [id number] [address] LABORATORYCLIA [id number] [address]#### 98153-6 ####[facility] MILLTOWNCLIA [id number] [place] [address] [place] WBC (Bld) [#/Vol] 8.82 10*3/uL Normal 3.70-11.00 [facility] Comment on above: Order Comment: Speci men Type: BLOOD SPECIMENOrdering Facility: [facility] Address: [address] [place] [address] Performed By: #### 5 7021-8 ####[facility] MILLTOWNCLIA [id number] [address] LABORATORYCLIA [id number] [address] [place]#### 00915-7 ####[facility]ENTERNCLIA [id number] [place] [address] [place] WBC Left Shift Ql (Bld) Present [facility] Comment on above: Order Comment: Speci men Type: BLOOD SPECIMENOrdering Facility: [facility] Address: [address] [place] [address] Performed By: #### 5 7021-8 ####[facility] [id number] [address] LABORATORYCLIA [id number] [place] [address] [place]#### 00138-7 ####[facility]A [id number] [place] [address] [place] CNPNon 04-25-2024 CNPN Normal [facility] Comprehensive metabolic 2000 panelon 04-25-2024 Albumin [Mass/Vol] 4.0 g/dL Normal 3.9-4.[address] [facility] Comment on above: Order Comment: Speci men Type: BLOOD SPECIMENOrdering Facility: [facility] Address: [address] [place] [address] Performed By: #### 1 9123-9, 65991-6 ####[facility] LABCLIA [id number] [place] [address] [place] ALP [Catalytic activity/Vol] 159 U/L High 38-113 [facility] Comment on above: Order Comment: Speci men Type: BLOOD SPECIMENOrdering Facility: [facility] Address: [address] [place] [address] Performed By: #### 1 9123-9, 21937-1 ####[facility]CL[facility] [id number] [place] [address] [place] ALT With P-5'-P [Catalytic activity/Vol] 19 U/L Normal 10-54 [facility] Comment on above: Order Comment: Speci men Type: BLOOD SPECIMENOrdering Facility: [facility] Address: [address] [place] [address] Performed By: #### 1 23-9, 95101-9 ####[facility] [id number] [place] [address] [place] Anion gap [Moles/Vol] 15 mmol/L Normal 8-15 [facility] Comment on above: Order Comment: Speci men Type: BLOOD SPECIMENOrdering Facility: [facility] Address: [address] [place] [address] Performed By: #### 1 23-9, ####[facility] [place] LABCLIA [id number] [place] [address] [facility] With P-5'-P [Catalytic activity/Vol] 30 U/L Normal 14-40 [facility] Comment on above: Order Comment: Speci men Type: BLOOD SPECIMENOrdering Facility: [facility] Address: [address] [place] [address] Performed By: #### 1 23-9, 94932-1 ####[facility] [place] LABCLIA [id number] [place] [address] [place] Bilirubin [Mass/Vol] 0.3 mg/dL Normal 0.2-1.3 [facility] Comment on above: Order Comment: Speci men Type: BLOOD SPECIMENOrdering Facility: [facility] Address: [address] [place] [address] Performed By: #### 1 23-9, 29533-4 ####[facility] [place] LABCLIA [id number] [place] [address] [place] Calcium [Mass/Vol] 9.0 mg/dL Normal 8.5-10.[address] [facility] Comment on above: Order Comment: Speci men Type: BLOOD SPECIMENOrdering Facility: [facility] Address: [address] [place] [address] Performed By: #### 1 9123-9, 76636-0 ####[facility] [place] LABCLIA [id number] [place] [address] [place] Chloride [Moles/Vol] 102 mmol/L Normal 98-107 [facility] Comment on above: Order Comment: Speci men Type: BLOOD SPECIMENOrdering Facility: [facility] Address: [address] [place] [address] Performed By: #### 1 9123-9, 08226-0 ####[facility] [place] LABCLIA [id number] [place] [address] [place] CO2 [Moles/Vol] 22 mmol/L Normal 22-30 [facility] Comment on above: Order Comment: Speci men Type: BLOOD SPECIMENOrdering Facility: [facility] Address: [address] [place] [address] Performed By: #### 1 9123-9, 02908-5 ####[facility] [place] LABCLIA [id number] [facility] [address] [place] Creatinine [Mass/Vol] 0.91 mg/dL Normal 0.73-1.22 [facility] Comment on above: Order Comment: Speci men Type: BLOOD SPECIMENOrdering Facility: [facility] Address: [address] [place] [address] Performed By: #### 1 9123-9, 27056-3 ####[facility] [place] LABCLIA [id number] [place] [address] [place] Creatinine and Glomerular filtration rate.predicted panel (S/P/Bld) 92 mL/min/1.73m??? Normal >=60 [facility] Comment on above: Order Comment: Fidelina murillo Type: BLOOD SPECIMENOrdering Facility: [facility] Address: [address] [place] [address] Result Comment: Rekha mated Glomerular Filtration Rate (eGFR) is calculated using the 2020 CKD-EPI creatinine equation. This equation utilizes serum creatinine, sex, and age as parameters. The creatinine assay has traceable calibration to isotope dilution-mass spectrometry. Refer to KDIGO guidelines for clinical interpretation. In patients with unstable renal function, e.g. those with acute kidney injury, the eGFR may not accurately reflect actual GFR. Performed By: #### 1 9123-9, 25234-0 ####JUANITA Survela [id number] [place] [address] [place] Glucose [Mass/Vol] 116 mg/dL High 74-[address] [facility] Comment on above: Order Comment: Fidelina murillo Type: BLOOD SPECIMENOrdering Facility: [facility] Address: [address] [place] [address] Result Comment: The [place] Diabetes Association (ADA) provides guidance for cutoff values for fasting glucose and random glucose. The ADA defines fasting as no caloric intake for at least 8 hours. Fasting plasma glucose results between 100 to 125 mg/dL indicate increased risk for diabetes (prediabetes).Fasting plasma glucose results greater than or equal to 126 mg/dL meet the criteria for diagnosis of diabetes. In the absence of unequivocal hyperglycemia, results should be confirmed by repeat testing. In a patient with classic symptoms of hyperglycemia or hyperglycemic crisis, random plasma glucose results greater than or equal to 200 mg/dL meet the criteria for diagnosis of diabetes.Reference: Standards of Medical Care in Diabetes 2016, [place] Diabetes Association. Diabetes Care. 2016.39(Suppl 1). Performed By: #### 1 9123-9, 30088-6 ####[employer] Pharm[employer]ANDREIA [email or web address] LABc-LEcta [id number] [place] [address] [place] Potassium [Moles/Vol] 4.5 mmol/L Normal 3.7-5.1 [facility] Comment on above: Order Comment: Fidelina murillo Type: BLOOD SPECIMENOrdering Facility: [facility] Address: [address] [place] [id number] Performed By: #### 1 9123-9, 72827-4 ####[facility] [place] LABCLIA [id number] [place] [address] [place] Protein [Mass/Vol] 6.6 g/dL Normal 6.3-8.[address] [facility] Comment on above: Order Comment: Speci men Type: BLOOD SPECIMENOrdering Facility: [facility] Address: [address] [place] [address] Performed By: #### 1 9123-9, 53248-9 ####[facility] LABCLIA [id number] [place] [address] [place] Sodium [Moles/Vol] 139 mmol/L Normal 136-[address] [facility] Comment on above: Order Comment: Speci men Type: BLOOD SPECIMENOrdering Facility: [facility] Address: [address] [place] [address] Performed By: #### 1 9123-9, 39296-7 ####[facility] LABCLIA [id number] [place] [address] [place] Urea nitrogen [Mass/Vol] 11 mg/dL Normal 9-24 [facility] Comment on above: Order Comment: Speci men Type: BLOOD SPECIMENOrdering Facility: [facility] Address: [address] [place] [address] Performed By: #### 1 9123-9, 83676-6 ####[facility] [place] LABCLIA [id number] [place] [address] [place] Folate SerPl-ncon 04-25-20 24 Folate [Mass/Vol] 6.6 ng/mL Normal >4.7 [facility] Comment on above: Order Comment: Speci men Type: BLOOD SPECIMENOrdering Facility: [facility] Address: [address] [place] [address] Performed By: #### 2 132-9, 2284-8 ####[facility] LABCLIA [id number] [place] [id number] [place] Magnesium SerPl-mCncon 04-25 Magnesium [Mass/Vol] 1.5 mg/dL Low 1.7-2.3 [facility] Comment on above: Order Comment: Speci men Type: BLOOD SPECIMENOrdering Facility: [facility] Address: [address] [place] [address] Performed By: #### 1 9123-9, 98824-6 ####[facility] LABCLIA [id number] [place] [address] [place] Methylmalonate SerPl-sCncon 04-25-2024 Methylmalonate [Moles/Vol] 0.31 umol/L Normal <=0.40 [facility] Comment on above: Order Comment: Henry chidi Type: BLOOD SPECIMENOrdering Facility: [facility] Address: [address] [place] [address] Result Comment: This test was developed, and its performance characteristics determined by the [facility] Department of Pathology and Laboratory Medicine. It has not been cleared or approved by the FDA. The [facility] Department of Pathology and Laboratory Medicine is regulated under CLIA as qualified to perform high-complexity testing. This test is used for clinical purposes. It should not be regarded as investigational or for research. Performed By: #### 1 3964-2 ####[facility] LABCLIA [id number] [place] [address] [place] Retics #on 04-25-2024 Reticulocytes (Bld) [#/Vol] 0.66315 10*3/uL High 0.018-0.100 [facility] Comment on above: Order Comment: Speci men Type: BLOOD SPECIMENOrdering Facility: [facility] Address: [address] [place] [address] Performed By: #### 5 7021-8 ####[facility] [id number] [place] [id number] [place] [address] LABORATORYCLIA [id number] [place] [address] [place]#### 14214-8 ####[facility] CENTERMENDELA [id number] [place] [address] [place] Reticulocytes (Bld) [#/Vol]o n 04-25-2024 Reticulocytes/100 RBC (Bld) 7.7 % High 0.4-2.0 [facility] Comment on above: Order Comment: Speci men Type: BLOOD SPECIMENOrdering Facility: [facility] Address: [address] [place] [address] Performed By: #### 5 7021-8 ####[facility] [id number] [address] LABORATORYCLIA [id number] [address] [place]#### 01768-6 ####[facility] [id number] [place] [address] [place] Vit B12 [facility] 024 Cobalamin (Vitamin B12) [Mass/Vol] pg/mL High 232-1245 [facility] Comment on above: Order Comment: Speci men Type: BLOOD SPECIMENOrdering Facility: [facility] Address: [address] [place] [address] Performed By: #### 2 132-9, 2284-8 ####[facility] LABCLIA [id number] [place] [address] [place] CBC W Auto Differential pane l (Bld)on 04-22-2024 Basophils (Bld) [#/Vol] 0.03 10*3/uL Normal <0.11 [facility] Comment on above: Order Comment: Speci men Type: BLOOD SPECIMENOrdering Facility: [facility] Address: [address] [place] [address] Performed By: #### 5 7021-8 ####[facility] ORVILLEWLORENZOLIA [id number] [place] [address] [place] Basophils/100 WBC (Bld) 0.3 % Normal [facility] Comment on above: Order Comment: Speci men Type: BLOOD SPECIMENOrdering Facility: [facility] Address: [address] [place] [address] Performed By: #### 5 7021-8 ####[facility] CENTERLORENZOLIA [id number] [place] [address] [place] Differential cell count method Nom (Bld) Auto Normal [facility] Comment on above: Order Comment: Speci men Type: BLOOD SPECIMENOrdering Facility: [facility] Address: [address] [place] [address] Performed By: #### 5 7021-8 ####[facility] CENTERLORENZOMOUNTAIN WEST [facility] [id number] [place] [address] [place] Eosinophils (Bld) [#/Vol] 0.06 10*3/uL Normal <0.46 [facility] Comment on above: Order Comment: Speci men Type: BLOOD SPECIMENOrdering Facility: [facility] Address: [address] [place] [address] Performed By: #### 5 7021-8 ####[facility] CENTERLORENZOA [id number] [place] [address] [place] Eosinophils/100 WBC (Bld) 0.6 % Normal [facility] Comment on above: Order Comment: Speci men Type: BLOOD SPECIMENOrdering Facility: [facility] Address: [address] [place] [address] Performed By: #### 5 7021-8 ####[facility] HOSPITALLIA [id number] [place] [address] [place] Erythrocyte distribution width (RBC) [Ratio] 21.2 % High 11.5-15.0 [facility] Comment on above: Order Comment: Speci men Type: BLOOD SPECIMENOrdering Facility: [facility] Address: [address] [place] [address] Performed By: #### 5 7021-8 ####[facility] CENTERNCMOUNTAIN WEST [facility] [id number] [place] [address] [place] Hematocrit (Bld) [Volume fraction] 25.2 % Low 39.0-51.0 [facility] Comment on above: Order Comment: Speci men Type: BLOOD SPECIMENOrdering Facility: [facility] Address: [address] [place] [address] Performed By: #### 5 7021-8 ####[facility] CENTERNCMOUNTAIN WEST [facility] [id number] [place] [address] [place] Hemoglobin (Bld) [Mass/Vol] 8.0 g/dL Low 13.0-17.0 [facility] Comment on above: Order Comment: Speci men Type: BLOOD SPECIMENOrdering Facility: [facility] Address: [address] [place] [address] Performed By: #### 5 7021-8 ####[facility]ENTERNCMOUNTAIN [facility] [id number] [place] [address] [place] Immature granulocytes (Bld) [#/Vol] 0.28 10*3/uL High <0.10 [facility] Comment on above: Order Comment: Speci men Type: BLOOD SPECIMENOrdering Facility: [facility] Address: [address] [place] [address] Performed By: #### 5 7021-8 ####[facility] [id number] [place] [address] [place] Immature granulocytes/100 WBC (Bld) 2.7 % Normal [facility] Comment on above: Order Comment: Speci men Type: BLOOD SPECIMENOrdering Facility: [facility] Address: [address] [place] [address] Performed By: #### 5 7021-8 ####[facility] MILLWNCLIA [id number] [place] [address] [place] Lymphocytes (Bld) [#/Vol] 1.40 10*3/uL Normal 1.00-4.00 [facility] Comment on above: Order Comment: Speci men Type: BLOOD SPECIMENOrdering Facility: [facility] Address: [address] [place] [address] Performed By: #### 5 7021-8 ####[facility] CENTERNCLIA [id number] [place] [address] [place] Lymphocytes/100 WBC (Bld) 13.7 % Normal [facility] Comment on above: Order Comment: Speci men Type: BLOOD SPECIMENOrdering Facility: [facility] Address: [address] [place] [address] Performed By: #### 5 7021-8 ####[facility] CENTERNCLIA [id number] [place] [address] [place] MCH (RBC) [Entitic mass] 34.3 pg High 26.0-34.0 [facility] Comment on above: Order Comment: Speci men Type: BLOOD SPECIMENOrdering Facility: [facility] Address: [address] [place] [address] Performed By: #### 5 7021-8 ####[facility] HOSPITALLIA [id number] [place] [address] [place] MCHC (RBC) [Mass/Vol] 31.7 g/dL Normal 30.5-36.0 [facility] Comment on above: Order Comment: Speci men Type: BLOOD SPECIMENOrdering Facility: [facility] Address: [address] [place] [address] Performed By: #### 5 7021-8 ####[facility] HOSPITALLIA [id number] [place] [address] [place] MCV (RBC) [Entitic vol] 108.2 fL High 80.0-100.0 [facility] Comment on above: Order Comment: Speci men Type: BLOOD SPECIMENOrdering Facility: [facility] Address: [address] [place] [address] Performed By: #### 5 7021-8 ####[facility] [id number] [place] [address] [place] Monocytes (Bld) [#/Vol] 1.02 10*3/uL High <0.87 [facility] Comment on above: Order Comment: Speci men Type: BLOOD SPECIMENOrdering Facility: [facility] Address: [address] [place] [address] Performed By: #### 5 7021-8 ####[facility] [id number] [place] [address] [place] Monocytes/100 WBC (Bld) 10.0 % [facility] Comment on above: Order Comment: Speci men Type: BLOOD SPECIMENOrdering Facility: [facility] Address: [address] [place] [address] Performed By: #### 5 7021-8 ####[facility] [id number] [place] [address] [place] Neutrophils (Bld) [#/Vol] 7.41 10*3/uL Normal 1.45-7.50 [facility] Comment on above: Order Comment: Speci men Type: BLOOD SPECIMENOrdering Facility: [facility] Address: [address] [place] [address] Performed By: #### 5 7021-8 ####[facility] [id number] [place] [address] [place] Neutrophils/100 WBC (Bld) 72.7 % Normal [facility] Comment on above: Order Comment: Speci men Type: BLOOD SPECIMENOrdering Facility: [facility] Address: [address] [place] [address] Performed By: #### 5 7021-8 ####[facility] [id number] [place] [address] [place] Nucleated RBC (Bld) [#/Vol] 0.03 10*3/uL High <0.01 [facility] Comment on above: Order Comment: Speci men Type: BLOOD SPECIMENOrdering Facility: [facility] Address: [address] [place] [address] Performed By: #### 5 7021-8 ####[facility] [id number] [place] [address] [place] Nucleated RBC/100 WBC (Bld) [Ratio] 0.3 /100 WBC Normal [facility] Comment on above: Order Comment: Speci men Type: BLOOD SPECIMENOrdering Facility: [facility] Address: [address] [place] [address] Performed By: #### 5 7021-8 ####[facility] [id number] [place] [address] [place] Platelet mean volume (Bld) [Entitic vol] 10.5 fL Normal 9.0-12.7 [facility] Comment on above: Order Comment: Speci men Type: BLOOD SPECIMENOrdering Facility: [facility] Address: [address] [place] [address] Performed By: #### 5 7021-8 ####[facility] [id number] [place] [address] [place] Platelets (Bld) [#/Vol] 304 10*3/uL Normal 150-400 [facility] Comment on above: Order Comment: Speci men Type: BLOOD SPECIMENOrdering Facility: [facility] Address: [address] [place], [place] [address] Performed By: #### 5 7021-8 ####[facility] STACEY GAITANMENDELA [id number] [place] [address] [place] RBC (Bld) [#/Vol] 2.33 10*6/uL Low 4.20-6.00 [facility] Comment on above: Order Comment: Speci men Type: BLOOD SPECIMENOrdering Facility: [facility] Address: [address] [place] [address] Performed By: #### 5 7021-8 ####[facility] ORVILLERupertATIF [id number] [place] [address] [place] WBC (Bld) [#/Vol] 10.20 10*3/uL Normal 3.70-11.00 [facility] Comment on above: Order Comment: Speci men Type: BLOOD SPECIMENOrdering Facility: [facility] Address: [address] [place] [address] Performed By: #### 5 7021-8 ####[facility] ORVILLEKATHLEENA [id number] [place] [address] [place] CNOVSPon 04-22-2024 CNOVSP Normal [facility] CNPNon 04-22-2024 CNPN Normal [facility] Comprehensive metabolic 2000 panelon 04-22-2024 Albumin [Mass/Vol] 4.0 g/dL Normal 3.9-4.[address] [facility] Comment on above: Order Comment: Speci men Type: BLOOD SPECIMENOrdering Facility: [facility] Address: [address] [place] [address] Performed By: #### 2 4323-8, 83137-5 ####[facility] TAMMYWNCLIA [id number] [place] [address] [place] ALP [Catalytic activity/Vol] 158 U/L High 38-113 [facility] Comment on above: Order Comment: Speci men Type: BLOOD SPECIMENOrdering Facility: [facility] Address: [address] [place] [address] Performed By: #### 2 4323-8, ####[facility] STACEY GAITANNCLIA [id number] [place] [address] [place] ALT [Catalytic activity/Vol] 16 U/L Normal 10-54 [facility] Comment on above: Order Comment: Speci men Type: BLOOD SPECIMENOrdering Facility: [facility] Address: [address] [place] [address] Performed By: #### 2 4323-8, ####[facility] ORVILLEBERLINWNCLIA [id number] [place] [address] [place] Anion gap [Moles/Vol] 14 mmol/L Normal 8-15 [facility] Comment on above: Order Comment: Speci men Type: BLOOD SPECIMENOrdering Facility: [facility] Address: [address] [place] [address] Performed By: #### 2 4323-8, ####[facility] ORVILLEBERLINWNCLIA [id number] [place] [address] [place] AST [Catalytic activity/Vol] 23 U/L Normal 14-40 [facility] Comment on above: Order Comment: Speci men Type: BLOOD SPECIMENOrdering Facility: [facility] Address: [address] [place], [place] [address] Performed By: #### 2 4323-8, ####[facility] ORVILLEPHILADELPHIANCLIA [id number] [place] [address] [place] Bilirubin [Mass/Vol] 0.3 mg/dL Normal 0.2-1.3 [facility] Comment on above: Order Comment: Speci men Type: BLOOD SPECIMENOrdering Facility: [facility] Address: [address] [place] [address] Performed By: #### 2 4323-8, ####[facility] STACEY MILLTOWNCLIA [id number] [place] [address] [place] Calcium [Mass/Vol] 9.5 mg/dL Normal 8.5-10.[address] [facility] Comment on above: Order Comment: Speci men Type: BLOOD SPECIMENOrdering Facility: [facility] Address: [address] [place] [address] Performed By: #### 2 432-8, ####[facility] MILLTOWLORENZOLIA [id number] [place] [address] [place] Chloride [Moles/Vol] 102 mmol/L Normal 98-107 [facility] Comment on above: Order Comment: Speci men Type: BLOOD SPECIMENOrdering Facility: [facility] Address: [address] [place] [address] Performed By: #### 2 432-8, ####[facility] MILLWLORENZOLIA [id number] [place] [address] [place] CO2 [Moles/Vol] 22 mmol/L Normal 22-30 [facility] Comment on above: Order Comment: Speci men Type: BLOOD SPECIMENOrdering Facility: [facility] Address: [address] [place] [address] Performed By: #### 2 4328, ####[facility] MILLTOWNCLIA [id number] [place] [address] [place] Creatinine [Mass/Vol] 0.82 mg/dL Normal 0.73-1.22 [facility] Comment on above: Order Comment: Speci men Type: BLOOD SPECIMENOrdering Facility: [facility] Address: [address] [place] [address] Performed By: #### 2 4323-8, ####[facility] CENTERNCLIA [id number] [place] [address] [place] Creatinine and Glomerular filtration rate.predicted panel (S/P/Bld) 96 mL/min/1.73m??? Normal >=60 [facility] Comment on above: Order Comment: Fidelina murillo Type: BLOOD SPECIMENOrdering Facility: [facility] Address: [address] [place] [address] Result Comment: Rekha mated Glomerular Filtration Rate (eGFR) is calculated using the 2020 CKD-EPI creatinine equation. This equation utilizes serum creatinine, sex, and age as parameters. The creatinine assay has traceable calibration to isotope dilution-mass spectrometry. Refer to KDIGO guidelines for clinical interpretation. In patients with unstable renal function, e.g. those with acute kidney injury, the eGFR may not accurately reflect actual GFR. Performed By: #### 2 4323-8, 72196-5 ####[facility] [id number] [place] [address] [place] Glucose [Mass/Vol] 128 mg/dL High 74-[address] [facility] Comment on above: Order Comment: Fidelina murillo Type: BLOOD SPECIMENOrdering Facility: [facility] Address: [address] [place] [address] Result Comment: The [place] [employer] (ADA) provides guidance for cutoff values for fasting glucose and random glucose. The ADA defines fasting as no caloric intake for at least 8 hours. Fasting plasma glucose results between 100 to 125 mg/dL indicate increased risk for diabetes (prediabetes).Fasting plasma glucose results greater than or equal to 126 mg/dL meet the criteria for diagnosis of diabetes. In the absence of unequivocal hyperglycemia, results should be confirmed by repeat testing. In a patient with classic symptoms of hyperglycemia or hyperglycemic crisis, random plasma glucose results greater than or equal to 200 mg/dL meet the criteria for diagnosis of diabetes.Reference: Standards of Medical Care in Diabetes 2016, [place] [employer]. Diabetes Care. 2016.39(Suppl 1). Performed By: #### 2 4323-8, 17661-9 ####[facility] [id number] [place] [address] [place] Potassium [Moles/Vol] 3.9 mmol/L Normal 3.7-5.1 [facility] Comment on above: Order Comment: Speci men Type: BLOOD SPECIMENOrdering Facility: [facility] Address: [address] [place] [address] Performed By: #### 2 4323-8, ####[facility] MILLPHILADELPHIALORENZOLIA [id number] [place] [address] [place] Protein [Mass/Vol] 6.6 g/dL Normal 6.3-8.[address] [facility] Comment on above: Order Comment: Speci men Type: BLOOD SPECIMENOrdering Facility: [facility] Address: [address] [place] [address] Performed By: #### 2 4323-8, ####[facility] [id number] [place] [address] [place] Sodium [Moles/Vol] 138 mmol/L Normal 136-[address] [facility] Comment on above: Order Comment: Speci men Type: BLOOD SPECIMENOrdering Facility: [facility] Address: [address] [place] [address] Performed By: #### 2 4323-8, ####[facility] CENTERLORENZOLIA [id number] [place] [address] [place] Urea nitrogen [Mass/Vol] 11 mg/dL Normal 9-24 [facility] Comment on above: Order Comment: Speci men Type: BLOOD SPECIMENOrdering Facility: [facility] Address: [address] [place] [address] Performed By: #### 2 4323-8, ####[facility] CENTERNCLIA [id number] [place] [address] [place] Magnesium SerPl-mCncon 12-02 -2024 Magnesium [Mass/Vol] 1.4 mg/dL Low 1.7-2.3 [facility] Comment on above: Order Comment: Speci men Type: BLOOD SPECIMENOrdering Facility: [facility] Address: [address] [place] [address] Performed By: #### 2 4323-8, 31962-6 ####[facility] CENTERATIF [id number] [place] [address] [place] TSH SerPl-aCncon 04-22-2024 TSH Qn 3.840 m[IU]/L Normal 0.270-4.200 [facility] Comment on above: Order Comment: Speci men Type: BLOOD SPECIMENOrdering Facility: [facility] Address: [address] [place] [address] Performed By: #### 3 016-3 ####[facility] LABCLIA [id number] [place] [address] [place] CT ABD/PEL W IVCONon 024 CT ABD/PEL W IVCON Normal [facility] CT CHEST W IVCONon 4 CT CHEST W IVCON Normal [facility] CNPNon 04-01-2024 CNPN Normal [facility] CBC W Auto Differential pane l (Bld)on 03-28-2024 Basophils (Bld) [#/Vol] 0.05 10*3/uL Normal <0.11 [facility] Comment on above: Order Comment: Speci men Type: BLOOD SPECIMENOrdering Facility: [facility] Address: [address] [place] [address] Performed By: #### 5 7021-8 ####[facility] [id number] [place] [address] [place] Basophils/100 WBC (Bld) 0.4 % Normal [facility] Comment on above: Order Comment: Speci men Type: BLOOD SPECIMENOrdering Facility: [facility] Address: [address] [place] [address] Performed By: #### 5 7021-8 ####[facility] CENTERNCA [id number] [place] [address] [place] Differential cell count method Nom (Bld) Auto Normal [facility] Comment on above: Order Comment: Speci men Type: BLOOD SPECIMENOrdering Facility: [facility] Address: [address] [place] [address] Performed By: #### 5 7021-8 ####[facility]ERNCMOUNT[facility] [id number] [place] [address] [place] Eosinophils (Bld) [#/Vol] 0.03 10*3/uL Normal <0.46 [facility] Comment on above: Order Comment: Speci men Type: BLOOD SPECIMENOrdering Facility: [facility] Address: [address] [place] [address] Performed By: #### 5 7021-8 ####[facility] CENTERNCLIA [id number] [place] [address] [place] Eosinophils/100 WBC (Bld) 0.2 % Normal [facility] Comment on above: Order Comment: Speci men Type: BLOOD SPECIMENOrdering Facility: [facility] Address: [address] [place] [address] Performed By: #### 5 7021-8 ####[facility] CENTERNCLI [id number] [place] [address] [place] Erythrocyte distribution width (RBC) [Ratio] 22.7 % High 11.5-15.0 [facility] Comment on above: Order Comment: Speci men Type: BLOOD SPECIMENOrdering Facility: [facility] Address: [address] [place] [address] Performed By: #### 5 7021-8 ####[facility] CENTERNCLI [id number] [place] [address] [place] Hematocrit (Bld) [Volume fraction] 27.2 % Low 39.0-51.0 [facility] Comment on above: Order Comment: Speci men Type: BLOOD SPECIMENOrdering Facility: [facility] Address: [address] [place] [address] Performed By: #### 5 7021-8 ####[facility] ORVILLEPHILADELPHIAATIF [id number] [place] [address] [place] Hemoglobin (Bld) [Mass/Vol] 8.6 g/dL Low 13.0-17.0 [facility] Comment on above: Order Comment: Speci men Type: BLOOD SPECIMENOrdering Facility: [facility] Address: [address] [place] [address] Performed By: #### 5 7021-8 ####[facility] CENTERLORENZORhonda [id number] [place] [address] [place] Immature granulocytes (Bld) [#/Vol] 0.56 10*3/uL High <0.10 [facility] Comment on above: Order Comment: Speci men Type: BLOOD SPECIMENOrdering Facility: [facility] Address: [address] [place] [address] Performed By: #### 5 7021-8 ####[facility] CENTERMENDELA [id number] [place] [address] [place] Immature granulocytes/100 WBC (Bld) 4.3 % Normal [facility] Comment on above: Order Comment: Speci men Type: BLOOD SPECIMENOrdering Facility: [facility] Address: [address] [place] [address] Performed By: #### 5 7021-8 ####[facility] CENTERNCLI [id number] [place] [address] [place] Lymphocytes (Bld) [#/Vol] 1.55 10*3/uL Normal 1.00-4.00 [facility] Comment on above: Order Comment: Speci men Type: BLOOD SPECIMENOrdering Facility: [facility] Address: [address] [place] [address] Performed By: #### 5 7021-8 ####[facility] [id number] [place] [address] [place] Lymphocytes/100 WBC (Bld) 11.8 % Normal [facility] Comment on above: Order Comment: Speci men Type: BLOOD SPECIMENOrdering Facility: [facility] Address: [address] [place] [address] Performed By: #### 5 7021-8 ####[facility]ENTERNCMOUNT[facility] [id number] [place] [address] [place] MCH (RBC) [Entitic mass] 33.3 pg Normal 26.0-34.0 [facility] Comment on above: Order Comment: Speci men Type: BLOOD SPECIMENOrdering Facility: [facility] Address: [address] [place] [address] Performed By: #### 5 7021-8 ####[facility] [id number] [place] [address] [place] MCHC (RBC) [Mass/Vol] 31.6 g/dL Normal 30.5-36.0 [facility] Comment on above: Order Comment: Speci men Type: BLOOD SPECIMENOrdering Facility: [facility] Address: [address] [place] [address] Performed By: #### 5 7021-8 ####[facility] CENTERNCLI [id number] [place] [address] [place] MCV (RBC) [Entitic vol] 105.4 fL High 80.0-100.0 [facility] Comment on above: Order Comment: Speci men Type: BLOOD SPECIMENOrdering Facility: [facility] Address: [address] [place] [address] Performed By: #### 5 7021-8 ####[facility] MILLTOWNCLIA [id number] [place] [address] [place] Monocytes (Bld) [#/Vol] 1.24 10*3/uL High <0.87 [facility] Comment on above: Order Comment: Speci men Type: BLOOD SPECIMENOrdering Facility: [facility] Address: [address] [place] [address] Performed By: #### 5 7021-8 ####[facility] MILLWNCLIA [id number] [place] [address] [place] Monocytes/100 WBC (Bld) 9.4 % Normal C [facility] Comment on above: Order Comment: Speci men Type: BLOOD SPECIMENOrdering Facility: [facility] Address: [address] [place] [address] Performed By: #### 5 7021-8 ####[facility] CENTERWNCLIA [id number] [place] [address] [place] Neutrophils (Bld) [#/Vol] 9.73 10*3/uL High 1.45-7.50 [facility] Comment on above: Order Comment: Speci men Type: BLOOD SPECIMENOrdering Facility: [facility] Address: [address] [place] [address] Performed By: #### 5 7021-8 ####[facility] MILLTOWNCLIA [id number] [place] [address] [place] Neutrophils/100 WBC (Bld) 73.9 % Normal [facility] Comment on above: Order Comment: Speci men Type: BLOOD SPECIMENOrdering Facility: [facility] Address: [address] [place] [address] Performed By: #### 5 7021-8 ####[facility] MILLTOWNCLIA [id number] [place] [address] [place] Nucleated RBC (Bld) [#/Vol] 10*3/uL Normal <0.01 [facility] Comment on above: Order Comment: Speci men Type: BLOOD SPECIMENOrdering Facility: [facility] Address: [address] [place] [address] Performed By: #### 5 7021-8 ####[facility] CENTERLORENZOBOBBI [id number] [place] [address] [place] Nucleated RBC/100 WBC (Bld) [Ratio] 0.0 /100 WBC Normal [facility] Comment on above: Order Comment: Speci men Type: BLOOD SPECIMENOrdering Facility: [facility] Address: [address] [place] [address] Performed By: #### 5 7021-8 ####[facility] CENTERNCRhonda [id number] [place] [address] [place] Platelet mean volume (Bld) [Entitic vol] 10.9 fL Normal 9.0-12.7 [facility] Comment on above: Order Comment: Speci men Type: BLOOD SPECIMENOrdering Facility: [facility] Address: [address] [place] [address] Performed By: #### 5 7021-8 ####[facility] CENTERNCLIA [id number] [place] [address] [place] Platelets (Bld) [#/Vol] 144 10*3/uL Low 150-400 [facility] Comment on above: Order Comment: Speci men Type: BLOOD SPECIMENOrdering Facility: [facility] Address: [address] [place] [address] Performed By: #### 5 7021-8 ####[facility] CENTERNCLIA [id number] [place] [address] [place] RBC (Bld) [#/Vol] 2.58 10*6/uL Low 4.20-6.00 [facility] Comment on above: Order Comment: Speci men Type: BLOOD SPECIMENOrdering Facility: [facility] Address: [address] [place] [address] Performed By: #### 5 7021-8 ####[facility] CENTERWNCLIA [id number] [place] [address] [place] WBC (Bld) [#/Vol] 13.16 10*3/uL High 3.70-11.00 [facility] Comment on above: Order Comment: Speci men Type: BLOOD SPECIMENOrdering Facility: [facility] Address: [address] [place] [address] Performed By: #### 5 7021-8 ####[facility] CENTERNCRhonda [id number] [place] [address] [place] CNOVSPon 03-28-2024 CNOVSP Normal [facility] Comprehensive metabolic 2000 panelon 03-28-2024 Albumin [Mass/Vol] 3.9 g/dL Normal 3.9-4.[address] [facility] Comment on above: Order Comment: Speci men Type: BLOOD SPECIMENOrdering Facility: [facility] Address: [address] [place] [address] Performed By: #### 2 4323-8, 51750-9 ####[facility] CENTERNCLIA [id number] [place] [address] [place] ALP [Catalytic activity/Vol] 225 U/L High 38-113 [facility] Comment on above: Order Comment: Speci men Type: BLOOD SPECIMENOrdering Facility: [facility] Address: [address] [place] [address] Performed By: #### 2 4323-8, 37904-2 ####[facility] CENTERNCLIA [id number] [place] [address] [place] ALT [Catalytic activity/Vol] 22 U/L Normal 10-54 [facility] Comment on above: Order Comment: Speci men Type: BLOOD SPECIMENOrdering Facility: [facility] Address: [address] [place] [address] Performed By: #### 2 4323-8, ####[facility] CENTERNCLIA [id number] [place] [address] [place] Anion gap [Moles/Vol] 11 mmol/L Normal 8-15 [facility] Comment on above: Order Comment: Speci men Type: BLOOD SPECIMENOrdering Facility: [facility] Address: [address] [place] [address] Performed By: #### 2 4323-8, ####[facility] [id number] [place] [address] [place] AST [Catalytic activity/Vol] 22 U/L Normal 14-40 [facility] Comment on above: Order Comment: Speci men Type: BLOOD SPECIMENOrdering Facility: [facility] Address: [address] [place] [address] Performed By: #### 2 432-8, ####[facility]OSPITALLIA [id number] [place] [address] [place] Bilirubin [Mass/Vol] 0.4 mg/dL Normal 0.2-1.3 [facility] Comment on above: Order Comment: Speci men Type: BLOOD SPECIMENOrdering Facility: [facility] Address: [address] [place] [address] Performed By: #### 2 4323-8, ####[facility]PITALLIA [id number] [place] [address] [place] Calcium [Mass/Vol] 9.4 mg/dL Normal 8.5-10.[address] [facility] Comment on above: Order Comment: Speci men Type: BLOOD SPECIMENOrdering Facility: [facility] Address: [address] [place] [address] Performed By: #### 2 4323-8, ####[facility] ORVILLERupertNCMICHELA [id number] [place] [address] [place] Chloride [Moles/Vol] 101 mmol/L Normal 98-107 [facility] Comment on above: Order Comment: Speci men Type: BLOOD SPECIMENOrdering Facility: [facility] Address: [address] [place] [address] Performed By: #### 2 4323-8, ####[facility] CENTERNCMICHELA [id number] [place] [address] [place] CO2 [Moles/Vol] 24 mmol/L Normal 22-30 [facility] Comment on above: Order Comment: Speci men Type: BLOOD SPECIMENOrdering Facility: [facility] Address: [address] [place] [address] Performed By: #### 2 4323-8, ####[facility] CENTERMENDELA [id number] [place] [address] [place] Creatinine [Mass/Vol] 0.81 mg/dL Normal 0.73-1.22 [facility] Comment on above: Order Comment: Speci men Type: BLOOD SPECIMENOrdering Facility: [facility] Address: [address] [place] [address] Performed By: #### 2 4323-8, ####[facility] CENTERNCLIA [id number] [place] [address] [place] Creatinine and Glomerular filtration rate.predicted panel (S/P/Bld) 96 mL/min/1.73m??? Normal >=60 [facility] Comment on above: Order Comment: Speci men Type: BLOOD SPECIMENOrdering Facility: [facility] Address: [address] [id number] Result Comment: Rekha mated Glomerular Filtration Rate (eGFR) is calculated using the 2020 CKD-EPI creatinine equation. This equation utilizes serum creatinine, sex, and age as parameters. The creatinine assay has traceable calibration to isotope dilution-mass spectrometry. Refer to KDIGO guidelines for clinical interpretation. In patients with unstable renal function, e.g. those with acute kidney injury, the eGFR may not accurately reflect actual GFR. Performed By: #### 2 4323-8, ####[facility] [id number] [place] [address] [place] Glucose [Mass/Vol] 106 mg/dL High 74-[address] [facility] Comment on above: Order Comment: Fidelina murillo Type: BLOOD SPECIMENOrdering Facility: [facility] Address: [address] [place] [address] Result Comment: The [place] [employer] (ADA) provides guidance for cutoff values for fasting glucose and random glucose. The ADA defines fasting as no caloric intake for at least 8 hours. Fasting plasma glucose results between 100 to 125 mg/dL indicate increased risk for diabetes (prediabetes).Fasting plasma glucose results greater than or equal to 126 mg/dL meet the criteria for diagnosis of diabetes. In the absence of unequivocal hyperglycemia, results should be confirmed by repeat testing. In a patient with classic symptoms of hyperglycemia or hyperglycemic crisis, random plasma glucose results greater than or equal to 200 mg/dL meet the criteria for diagnosis of diabetes.Reference: Standards of Medical Care in Diabetes 2016, [place] [employer]. Diabetes Care. 2016.39(Suppl 1). Performed By: #### 2 4323-8, ####[facility] [id number] [place] [address] [place] Potassium [Moles/Vol] 4.7 mmol/L Normal 3.7-5.1 [facility] Comment on above: Order Comment: Fidelina men Type: BLOOD SPECIMENOrdering Facility: [facility] Address: [address] [id number] Performed By: #### 2 4323-8, ####[facility] MILLTOWNCLIA [id number] [place] [address] [place] Protein [Mass/Vol] 6.9 g/dL Normal 6.3-8.[address] [facility] Comment on above: Order Comment: Speci men Type: BLOOD SPECIMENOrdering Facility: [facility] Address: [address] [place] [address] Performed By: #### 2 4323-8, ####[facility] MILLTOWNCLIA [id number] [place] [address] [place] Sodium [Moles/Vol] 136 mmol/L Normal 136-[address] [facility] Comment on above: Order Comment: Speci men Type: BLOOD SPECIMENOrdering Facility: [facility] Address: [address] [place] [address] Performed By: #### 2 4323-8, ####[facility] CENTERNCLIA [id number] [place] [address] [place] Urea nitrogen [Mass/Vol] 7 mg/dL Low 9-24 [facility] Comment on above: Order Comment: Speci men Type: BLOOD SPECIMENOrdering Facility: [facility] Address: [address] [place] [address] Performed By: #### 2 4323-8, ####[facility] MILLWNCLIA [id number] [place] [address] [place] Magnesium SerPl-mCncon 03-28 Magnesium [Mass/Vol] 1.8 mg/dL Normal 1.7-2.3 [facility] Comment on above: Order Comment: Speci men Type: BLOOD SPECIMENOrdering Facility: [facility] Address: [address] [place] [address] Performed By: #### 2 4323-8, ####[facility] [id number] [place] [address] [place] CBC W Auto Differential pane l (Bld)on 03-14-2024 Basophils (Bld) [#/Vol] 0.04 10*3/uL Normal <0.11 [facility] Comment on above: Order Comment: Speci men Type: BLOOD SPECIMENOrdering Facility: [facility] Address: [address] [place] [address] Performed By: #### 5 7021-8 ####[facility] [id number] [place] [address] [place] Basophils/100 WBC (Bld) 0.4 % Normal [facility] Comment on above: Order Comment: Speci men Type: BLOOD SPECIMENOrdering Facility: [facility] Address: [address] [place] [address] Performed By: #### 5 7021-8 ####[facility] [id number] [place] [address] [place] Differential cell count method Nom (Bld) Auto Normal [facility] Comment on above: Order Comment: Speci men Type: BLOOD SPECIMENOrdering Facility: [facility] Address: [address] [place] [address] Performed By: #### 5 7021-8 ####[facility] [id number] [place] [address] [place] Eosinophils (Bld) [#/Vol] 10*3/uL Normal <0.46 [facility] Comment on above: Order Comment: Speci men Type: BLOOD SPECIMENOrdering Facility: [facility] Address: [address] [place] [address] Performed By: #### 5 7021-8 ####[facility] [id number] [place] [address] [place] Eosinophils/100 WBC (Bld) 0.0 % Normal [facility] Comment on above: Order Comment: Speci men Type: BLOOD SPECIMENOrdering Facility: [facility] Address: [address] [place] [address] Performed By: #### 5 7021-8 ####[facility]ERNCMOUNT[facility] [id number] [place] [address] [place] Erythrocyte distribution width (RBC) [Ratio] 20.8 % High 11.5-15.0 [facility] Comment on above: Order Comment: Speci men Type: BLOOD SPECIMENOrdering Facility: [facility] Address: [address] [place] [address] Performed By: #### 5 7021-8 ####[facility]ERNCMOUNT[facility] [id number] [place] [address] [place] Hematocrit (Bld) [Volume fraction] 31.0 % Low 39.0-51.0 [facility] Comment on above: Order Comment: Speci men Type: BLOOD SPECIMENOrdering Facility: [facility] Address: [address] [place] [address] Performed By: #### 5 7021-8 ####[facility]ERNCMOUNT[facility] [id number] [place] [address] [place] Hemoglobin (Bld) [Mass/Vol] 9.6 g/dL Low 13.0-17.0 [facility] Comment on above: Order Comment: Speci men Type: BLOOD SPECIMENOrdering Facility: [facility] Address: [address] [place] [address] Performed By: #### 5 7021-8 ####[facility] [id number] [place] [address] [place] Immature granulocytes (Bld) [#/Vol] 0.07 10*3/uL Normal <0.10 [facility] Comment on above: Order Comment: Speci men Type: BLOOD SPECIMENOrdering Facility: [facility] Address: [address] [place] [address] Performed By: #### 5 7021-8 ####[facility] MILLWNCLIA [id number] [address] [place] Immature granulocytes/100 WBC (Bld) 0.7 % Normal [facility] Comment on above: Order Comment: Speci men Type: BLOOD SPECIMENOrdering Facility: [facility] Address: [address] [place] [address] Performed By: #### 5 7021-8 ####[facility] CENTERNCLIA [id number] [place] [address] [place] Lymphocytes (Bld) [#/Vol] 0.64 10*3/uL Low 1.00-4.00 [facility] Comment on above: Order Comment: Speci men Type: BLOOD SPECIMENOrdering Facility: [facility] Address: [address] [place] [address] Performed By: #### 5 7021-8 ####[facility] [id number] [place] [address] [place] Lymphocytes/100 WBC (Bld) 6.0 % Normal [facility] Comment on above: Order Comment: Speci men Type: BLOOD SPECIMENOrdering Facility: [facility] Address: [address] [place] [address] Performed By: #### 5 7021-8 ####[facility] [id number] [place] [address] [place] MCH (RBC) [Entitic mass] 31.9 pg Normal 26.0-34.0 [facility] Comment on above: Order Comment: Speci men Type: BLOOD SPECIMENOrdering Facility: [facility] Address: [address] [place] [address] Performed By: #### 5 7021-8 ####[facility] [id number] [place] [address] [place] MCHC (RBC) [Mass/Vol] 31.0 g/dL Normal 30.5-36.0 [facility] Comment on above: Order Comment: Speci men Type: BLOOD SPECIMENOrdering Facility: [facility] Address: [address] [place], [place] [address] Performed By: #### 5 7021-8 ####[facility] CENTERATIF [id number] [place] [address] [place] MCV (RBC) [Entitic vol] 103.0 fL High 80.0-100.0 C [facility] Comment on above: Order Comment: Speci men Type: BLOOD SPECIMENOrdering Facility: [facility] Address: [address] [place] [address] Performed By: #### 5 7021-8 ####[facility] [id number] [place] [address] [place] Monocytes (Bld) [#/Vol] 0.07 10*3/uL Normal <0.87 [facility] Comment on above: Order Comment: Speci men Type: BLOOD SPECIMENOrdering Facility: [facility] Address: [address] [place] [address] Performed By: #### 5 7021-8 ####[facility] CENTERRhonda [id number] [place] [address] [place] Monocytes/100 WBC (Bld) 0.7 % Normal C [facility] Comment on above: Order Comment: Speci men Type: BLOOD SPECIMENOrdering Facility: [facility] Address: [address] [place] [address] Performed By: #### 5 7021-8 ####[facility] CENTERA [id number] [place] [address] [place] Neutrophils (Bld) [#/Vol] 9.83 10*3/uL High 1.45-7.50 [facility] Comment on above: Order Comment: Speci men Type: BLOOD SPECIMENOrdering Facility: [facility] Address: [address] [place] [address] Performed By: #### 5 7021-8 ####[facility]ENTERA [id number] [place] [address] [place] Neutrophils/100 WBC (Bld) 92.2 % Normal [facility] Comment on above: Order Comment: Speci men Type: BLOOD SPECIMENOrdering Facility: [facility] Address: [address] [place] [address] Performed By: #### 5 7021-8 ####[facility] [id number] [place] [address] [place] Nucleated RBC (Bld) [#/Vol] 10*3/uL Normal <0.01 [facility] Comment on above: Order Comment: Speci men Type: BLOOD SPECIMENOrdering Facility: [facility] Address: [address] [place] [address] Performed By: #### 5 7021-8 ####[facility] [id number] [place] [address] [place] Nucleated RBC/100 WBC (Bld) [Ratio] 0.0 /100 WBC Normal [facility] Comment on above: Order Comment: Speci men Type: BLOOD SPECIMENOrdering Facility: [facility] Address: [address] [place] [address] Performed By: #### 5 7021-8 ####[facility] [id number] [place] [address] [place] Platelet mean volume (Bld) [Entitic vol] 10.1 fL Normal 9.0-12.7 [facility] Comment on above: Order Comment: Speci men Type: BLOOD SPECIMENOrdering Facility: [facility] Address: [address] [place] [address] Performed By: #### 5 7021-8 ####[facility] STACEY KANDYNCMICHELA [id number] [place] [address] [place] Platelets (Bld) [#/Vol] 452 10*3/uL High 150-400 [facility] Comment on above: Order Comment: Speci men Type: BLOOD SPECIMENOrdering Facility: [facility] Address: [address] [place] [address] Performed By: #### 5 7021-8 ####[facility] ORVILLEPHILADELPHIANCMICHELA [id number] [place] [address] [place] RBC (Bld) [#/Vol] 3.01 10*6/uL Low 4.20-6.00 [facility] Comment on above: Order Comment: Speci men Type: BLOOD SPECIMENOrdering Facility: [facility] Address: [address] [place] [address] Performed By: #### 5 7021-8 ####[facility] ORVILLEPHILADELPHIANCLIA [id number] [place] [address] [place] WBC (Bld) [#/Vol] 10.65 10*3/uL Normal 3.70-11.00 [facility] Comment on above: Order Comment: Speci men Type: BLOOD SPECIMENOrdering Facility: [facility] Address: [address] [place] [address] Performed By: #### 5 7021-8 ####[facility] CENTERNCLIA [id number] [place] [address] [place] CNPNon 03-14-2024 CNPN Normal [facility] CNPNon 03-12-2024 CNPN Normal [facility] CBC W Auto Differential pane l (Bld)on 03-11-2024 Anisocytosis Ql (Bld) Present Normal [facility] Comment on above: Order Comment: Speci men Type: BLOOD SPECIMENOrdering Facility: [facility] Address: [address] [place] [address] Performed By: #### 5 7021-8 ####[facility] TAMMYWNCLIA [id number] [address] LABORATORYCLIA [id number] [place] [address] [place] Basophils (Bld) [#/Vol] 0.00 10*3/uL Normal <0.11 [facility] Comment on above: Order Comment: Speci men Type: BLOOD SPECIMENOrdering Facility: [facility] Address: [address] [place] [address] Performed By: #### 5 7021-8 ####[facility] CENTERWNCLIA [id number] [address] LABORATORYCLIA [id number] [place] [address] [place] Basophils/100 WBC (Bld) 0.0 % Normal [facility] Comment on above: Order Comment: Speci men Type: BLOOD SPECIMENOrdering Facility: [facility] Address: [address] [place] [address] Performed By: #### 5 7021-8 ####[facility] CENTERWNCLIA [id number] [address] LABORATORYCLIA [id number] [place] [address] [place] Dacrocytes LM Ql (Bld) Few Normal Cl [facility] Comment on above: Order Comment: Speci men Type: BLOOD SPECIMENOrdering Facility: [facility] Address: [address] [place] [address] Performed By: #### 5 7021-8 ####[facility] CENTERWNCLIA [id number] [place] LABORATORYCLIA [id number] [place] [address] [place] Differential cell count method Nom (Bld) Manual Normal [facility] Comment on above: Order Comment: Speci men Type: BLOOD SPECIMENOrdering Facility: [facility] Address: [address] [place] [address] Performed By: #### 5 7021-8 ####[facility] MILLTOWNCLIA [id number] [address] LABORATORYCLIA [id number] [place] [address] [place] Eosinophils (Bld) [#/Vol] 0.25 10*3/uL Normal <0.46 [facility] Comment on above: Order Comment: Speci men Type: BLOOD SPECIMENOrdering Facility: [facility] Address: [address] [place] [address] Performed By: #### 5 7021-8 ####[facility] CENTERWNCLIA [id number] [address] LABORATORYCLIA [id number] [place] [address] [place] Eosinophils/100 WBC (Bld) 2.0 % Normal [facility] Comment on above: Order Comment: Speci men Type: BLOOD SPECIMENOrdering Facility: [facility] Address: [address] [place] [address] Performed By: #### 5 7021-8 ####[facility] CENTERWNCLIA [id number] [address] LABORATORYCLIA [id number] [place] [address] [place] Erythrocyte distribution width (RBC) [Ratio] 21.5 % High 11.5-15.0 [facility] Comment on above: Order Comment: Speci men Type: BLOOD SPECIMENOrdering Facility: [facility] Address: [address] [place] [address] Performed By: #### 5 7021-8 ####[facility] TAMMYWLORENZOLIA [id number] [address] LABORATORYCLIA [id number] [place] [address] [place] Hematocrit (Bld) [Volume fraction] 25.8 % Low 39.0-51.0 [facility] Comment on above: Order Comment: Speci men Type: BLOOD SPECIMENOrdering Facility: [facility] Address: [address] [place] [address] Performed By: #### 5 7021-8 ####[facility] [id number] [address] LABORATORYIA [id number] [place] [address] [place] Hemoglobin (Bld) [Mass/Vol] 8.2 g/dL Low 13.0-17.0 [facility] Comment on above: Order Comment: Speci men Type: BLOOD SPECIMENOrdering Facility: [facility] Address: [address] [place] [address] Performed By: #### 5 7021-8 ####[facility] CENTERA [id number] [address] LABORATORYIA [id number] [place] [address] [place] Lymphocytes (Bld) [#/Vol] 1.64 10*3/uL Normal 1.00-4.00 [facility] Comment on above: Order Comment: Speci men Type: BLOOD SPECIMENOrdering Facility: [facility] Address: [address] [place] [address] Performed By: #### 5 7021-8 ####[facility] CENTERNCLIA [id number] [address] LABORATORYCLIA [id number] [place] [address] [place] Lymphocytes/100 WBC (Bld) 13.0 % Normal [facility] Comment on above: Order Comment: Speci men Type: BLOOD SPECIMENOrdering Facility: [facility] Address: [address] [place] [address] Performed By: #### 5 7021-8 ####[facility] CENTERWNCLIA [id number] [address] LABORATORYCLIA [id number] [place] [address] [place] MCH (RBC) [Entitic mass] 32.5 pg Normal 26.0-34.0 [facility] Comment on above: Order Comment: Speci men Type: BLOOD SPECIMENOrdering Facility: [facility] Address: [address] [place] [address] Performed By: #### 5 7021-8 ####[facility] HOSPITALLIA [id number] [address] LABORATORYCLIA [id number] [place] [address] [place] MCHC (RBC) [Mass/Vol] 31.8 g/dL Normal 30.5-36.0 [facility] Comment on above: Order Comment: Speci men Type: BLOOD SPECIMENOrdering Facility: [facility] Address: [address] [place], [place] [address] Performed By: #### 5 7021-8 ####[facility] CENTERNCLIA [id number] [address] LABORATORYCLIA [id number] [place] [address] [place] MCV (RBC) [Entitic vol] 102.4 fL High 80.0-100.0 C [facility] Comment on above: Order Comment: Speci men Type: BLOOD SPECIMENOrdering Facility: [facility] Address: [address] [place] [address] Performed By: #### 5 7021-8 ####[facility] EMERGENCYTOWNCLIA [id number] [address] LABORATORYCLIA [id number] [place] [address] [place] Metamyelocytes/100 WBC (Bld) 1.0 % Normal [facility] Comment on above: Order Comment: Speci men Type: BLOOD SPECIMENOrdering Facility: [facility] Address: [address] [place] [address] Performed By: #### 5 7021-8 ####[facility] CENTERWNCLIA [id number] [address] LABORATORYCLIA [id number] [place] [address] [place] Monocytes (Bld) [#/Vol] 1.26 10*3/uL High <0.87 [facility] Comment on above: Order Comment: Speci men Type: BLOOD SPECIMENOrdering Facility: [facility] Address: [address] [place] [address] Performed By: #### 5 7021-8 ####[facility] CENTERWNCLIA [id number] [address] LABORATORYCLIA [id number] [place] [address] [place] Monocytes/100 WBC (Bld) 10.0 % Normal C [facility] Comment on above: Order Comment: Speci men Type: BLOOD SPECIMENOrdering Facility: [facility] Address: [address] [place] [address] Performed By: #### 5 7021-8 ####[facility] MILLTOWNCLIA [id number] [address] LABORATORYCLIA [id number] [place] [address] [place] MYELO% 4.0 % Normal [facility] Comment on above: Order Comment: Speci men Type: BLOOD SPECIMENOrdering Facility: [facility] Address: [address] [place] [address] Performed By: #### 5 7021-8 ####[facility] MILLWNCLIA [id number] [address] LABORATORYCLIA [id number] [address] [place] Neutrophils (Bld) [#/Vol] 8.85 10*3/uL High 1.45-7.50 [facility] Comment on above: Order Comment: Speci men Type: BLOOD SPECIMENOrdering Facility: [facility] Address: [address] [place] [address] Performed By: #### 5 7021-8 ####[facility] CENTERWNCLIA [id number] [address] LABORATORYCLIA [id number] [place] [address] [place] Neutrophils/100 WBC (Bld) 70.0 % Normal [facility] Comment on above: Order Comment: Speci men Type: BLOOD SPECIMENOrdering Facility: [facility] Address: [address] [place] [address] Performed By: #### 5 7021-8 ####[facility] MILLTOWNCLIA [id number] [address] LABORATORYCLIA [id number] [address] [place] Nucleated RBC (Bld) [#/Vol] 10*3/uL Normal <0.01 [facility] Comment on above: Order Comment: Speci men Type: BLOOD SPECIMENOrdering Facility: [facility] Address: [address] [place] [address] Performed By: #### 5 7021-8 ####[facility] CENTERWNCLIA [id number] [address] LABORATORYCLIA [id number] [place] [address] [place] Nucleated RBC/100 WBC (Bld) [Ratio] 0.0 /100 WBC Normal [facility] Comment on above: Order Comment: Speci men Type: BLOOD SPECIMENOrdering Facility: [facility] Address: [address] [place] [address] Performed By: #### 5 7021-8 ####[facility] CENTERA [id number] [address] LABORATORYCLIA [id number] [address] [place] Ovalocytes LM Ql (Bld) Few Normal Cl [facility] Comment on above: Order Comment: Speci men Type: BLOOD SPECIMENOrdering Facility: [facility] Address: [address] [place] [address] Performed By: #### 5 7021-8 ####[facility]PITALLIA [id number] [address] LABORATORYCLIA [id number] [place] [address] [place] Platelet mean volume (Bld) [Entitic vol] 9.9 fL Normal 9.0-12.7 [facility] Comment on above: Order Comment: Speci men Type: BLOOD SPECIMENOrdering Facility: [facility] Address: [address] [place] [address] Performed By: #### 5 7021-8 ####[facility] MILLTOWNCLIA [id number] [address] LABORATORYCLIA [id number] [place] [address] [place] Platelets (Bld) [#/Vol] 352 10*3/uL Normal 150-400 [facility] Comment on above: Order Comment: Speci men Type: BLOOD SPECIMENOrdering Facility: [facility] Address: [address] [place] [address] Performed By: #### 5 7021-8 ####[facility] MILLTOWNCLIA [id number] [address] LABORATORYCLIA [id number] [place] [address] [place] Platelets Estimate (Bld) [#/Vol] Adequate Normal [facility] Comment on above: Order Comment: Speci men Type: BLOOD SPECIMENOrdering Facility: [facility] Address: [address] [place] [address] Performed By: #### 5 7021-8 ####[facility]ENTERNCLIA [id number] [address] LABORATORYCLIA [id number] [place] [address] [place] Polychromasia LM Ql (Bld) Slight Normal [facility] Comment on above: Order Comment: Speci men Type: BLOOD SPECIMENOrdering Facility: [facility] Address: [address] [place] [address] Performed By: #### 5 7021-8 ####[facility] MILLTOWNCLIA [id number] [address] LABORATORYCLIA [id number] [address] STATES OF [facility] RBC (Bld) [#/Vol] 2.52 10*6/uL Low 4.20-6.00 [facility] Comment on above: Order Comment: Speci men Type: BLOOD SPECIMENOrdering Facility: [facility] Address: [address] [place] [address] Performed By: #### 5 7021-8 ####[facility] [id number] [address] LABORATORYCLIA [id number] [address] STATES [facility] RED CELL MORPH Reviewed: see result s of individual morphologies Normal [facility] Comment on above: Order Comment: Speci men Type: BLOOD SPECIMENOrdering Facility: [facility] Address: [address] [place] [address] Performed By: #### 5 7021-8 ####[facility] [id number] [address] LABORATORYCLIA [id number] [address] Target cells LM Ql (Bld) Few Normal [facility] Comment on above: Order Comment: Speci men Type: BLOOD SPECIMENOrdering Facility: [facility] Address: [address] [place] [address] Performed By: #### 5 7021-8 ####[facility] [id number] [address] LABORATORYCLIA [id number] [address] [place] Toxic granules LM Ql (Bld) Present Normal [facility] Comment on above: Order Comment: Speci men Type: BLOOD SPECIMENOrdering Facility: [facility] Address: [address] [place] [address] Performed By: #### 5 7021-8 ####[facility] MILLTOWNCLIA [id number] [address] LABORATORYCLIA [id number] [place] [address] [place] [facility] WBC (Bld) [#/Vol] 12.64 10*3/uL High 3.70-11.00 [facility] Comment on above: Order Comment: Speci men Type: BLOOD SPECIMENOrdering Facility: [facility] Address: [address] [place] [address] Performed By: #### 5 7021-8 ####[facility] CENTERNCA [id number] [address] LABORATORYCLIA [id number] [place] [address] [place] WBC Left Shift Ql (Bld) Present Normal C [facility] Comment on above: Order Comment: Speci men Type: BLOOD SPECIMENOrdering Facility: [facility] Address: [address] [place] [address] Performed By: #### 5 7021-8 ####[facility]ITALLIA [id number] [address] LABORATORYCLIA [id number] [place] [address] [place] Comprehensive metabolic 2000 panelon 03-11-2024 Albumin [Mass/Vol] 3.8 g/dL Low 3.9-4.[address] [facility] Comment on above: Order Comment: Speci men Type: BLOOD SPECIMENOrdering Facility: [facility] Address: [address] [place] [address] Performed By: #### 2 4323-8, 15638-4 ####[facility] CENTERWNCLIA [id number] [place] [address] [place] ALP [Catalytic activity/Vol] 236 U/L High 38-113 [facility] Comment on above: Order Comment: Speci men Type: BLOOD SPECIMENOrdering Facility: [facility] Address: [address] [place] [address] Performed By: #### 2 4323-8, ####[facility] CENTERWNCLIA [id number] [place] [address] [place] ALT [Catalytic activity/Vol] 15 U/L Normal 10-54 [facility] Comment on above: Order Comment: Speci men Type: BLOOD SPECIMENOrdering Facility: [facility] Address: [address] [place] [address] Performed By: #### 2 4323-8, ####[facility]ENTERNCLIA [id number] [place] [address] [place] Anion gap [Moles/Vol] 13 mmol/L Normal 8-15 [facility] Comment on above: Order Comment: Speci men Type: BLOOD SPECIMENOrdering Facility: [facility] Address: [address] [place] [address] Performed By: #### 2 4323-8, ####[facility]OSPITALLIA [id number] [place] [address] [place] AST [Catalytic activity/Vol] 21 U/L Normal 14-40 [facility] Comment on above: Order Comment: Speci men Type: BLOOD SPECIMENOrdering Facility: [facility] Address: [address] [place] [address] Performed By: #### 2 4323-8, ####[facility] CENTERA [id number] [place] [address] [place] Bilirubin [Mass/Vol] 0.3 mg/dL Normal 0.2-1.3 [facility] Comment on above: Order Comment: Speci men Type: BLOOD SPECIMENOrdering Facility: [facility] Address: [address] [place], [place] [address] Performed By: #### 2 4323-8, ####[facility] STACEY MENJIVARLIA [id number] [place] [address] [place] Calcium [Mass/Vol] 8.8 mg/dL Normal 8.5-10.[address] [facility] Comment on above: Order Comment: Speci men Type: BLOOD SPECIMENOrdering Facility: [facility] Address: [address] [place], [place] [address] Performed By: #### 2 4323-8, ####[facility] ORVILLEGERRYA [id number] [place] [address] [place] Chloride [Moles/Vol] 103 mmol/L Normal 98-107 [facility] Comment on above: Order Comment: Speci men Type: BLOOD SPECIMENOrdering Facility: [facility] Address: [address] [place], [place] [address] Performed By: #### 2 4323-8, ####[facility] ORVILLEPHILADELPHIAMENDELA [id number] [place] [address] [place] CO2 [Moles/Vol] 21 mmol/L Low 22-30 [facility] Comment on above: Order Comment: Speci men Type: BLOOD SPECIMENOrdering Facility: [facility] Address: [address] [place] [address] Performed By: #### 2 4323-8, ####[facility] MILLWNCLIA [id number] [place] [address] [place] Creatinine [Mass/Vol] 0.82 mg/dL Normal 0.73-1.22 [facility] Comment on above: Order Comment: Speci men Type: BLOOD SPECIMENOrdering Facility: [facility] Address: [address] [place] [address] Performed By: #### 2 4323-8, 73124-0 ####[facility] CENTERWNCLIA [id number] [place] [address] [place] Creatinine and Glomerular filtration rate.predicted panel (S/P/Bld) 96 mL/min/1.73m??? Normal >=60 [facility] Comment on above: Order Comment: Fidelina murillo Type: BLOOD SPECIMENOrdering Facility: [facility] Address: [address] [place] [address] Result Comment: Rekha mated Glomerular Filtration Rate (eGFR) is calculated using the 2020 CKD-EPI creatinine equation. This equation utilizes serum creatinine, sex, and age as parameters. The creatinine assay has traceable calibration to isotope dilution-mass spectrometry. Refer to KDIGO guidelines for clinical interpretation. In patients with unstable renal function, e.g. those with acute kidney injury, the eGFR may not accurately reflect actual GFR. Performed By: #### 2 4323-8, 71189-8 ####[facility] CENTERNCLIA [id number] [place] [address] [place] Glucose [Mass/Vol] 166 mg/dL High 74-[address] [facility] Comment on above: Order Comment: Fidelina murillo Type: BLOOD SPECIMENOrdering Facility: [facility] Address: [address] [place] [address] Result Comment: The [place] [employer] (ADA) provides guidance for cutoff values for fasting glucose and random glucose. The ADA defines fasting as no caloric intake for at least 8 hours. Fasting plasma glucose results between 100 to 125 mg/dL indicate increased risk for diabetes (prediabetes).Fasting plasma glucose results greater than or equal to 126 mg/dL meet the criteria for diagnosis of diabetes. In the absence of unequivocal hyperglycemia, results should be confirmed by repeat testing. In a patient with classic symptoms of hyperglycemia or hyperglycemic crisis, random plasma glucose results greater than or equal to 200 mg/dL meet the criteria for diagnosis of diabetes.Reference: Standards of Medical Care in Diabetes 2016, [place] [employer]. Diabetes Care. 2016.39(Suppl 1). Performed By: #### 2 4323-8, 19186-4 ####[facility] [id number] [place] [address] [place] Potassium [Moles/Vol] 4.4 mmol/L Normal 3.7-5.1 [facility] Comment on above: Order Comment: Speci men Type: BLOOD SPECIMENOrdering Facility: [facility] Address: [address] [place] [address] Performed By: #### 2 4323-8, ####[facility] MILLTOWNCLIA [id number] [place] [address] [place] Protein [Mass/Vol] 6.7 g/dL Normal 6.3-8.[address] [facility] Comment on above: Order Comment: Speci men Type: BLOOD SPECIMENOrdering Facility: [facility] Address: [address] [place] [address] Performed By: #### 2 432-8, ####[facility] MILLTOWNCLIA [id number] [place] [address] [place] Sodium [Moles/Vol] 137 mmol/L Normal 136-[address] [facility] Comment on above: Order Comment: Speci men Type: BLOOD SPECIMENOrdering Facility: [facility] Address: [address] [place] [address] Performed By: #### 2 4323-8, ####[facility] MILLTOWNCLIA [id number] [place] [address] [place] Urea nitrogen [Mass/Vol] 16 mg/dL Normal 9-24 [facility] Comment on above: Order Comment: Speci men Type: BLOOD SPECIMENOrdering Facility: [facility] Address: [address] [place] [address] Performed By: #### 2 4323-8, ####[facility] MILLTOWNCLIA [id number] [place] [address] [place] HbA1c (Bld)on 03-11-2024 Average glucose Estimated from glycated hemoglobin (Bld) [Mass/Vol] 137 mg/dL Normal [facility] Comment on above: Order Comment: Fidelina murillo Type: BLOOD SPECIMENOrdering Facility: [facility] Address: [address] [place] [address] Result Comment: eAG: (Estimated average glucose) is a calculated value from HgbA1c and is phone representative of the average blood glucose level in the last 2-3 month period. Performed By: #### 5 5454-3 ####[facility] LABCLIA [id number] [place] [address] [place] HbA1c (Bld) [Mass fraction] 6.4 % High 4.3-5.6 [facility] Comment on above: Order Comment: Fidelina murillo Type: BLOOD SPECIMENOrdering Facility: [facility] Address: [address] [place] [address] Result Comment: Amer [place] Diabetes Association guidelines indicate that patients with HgbA1c in the range 5.7-6.4% are at increased risk for development of diabetes, and intervention by lifestyle modification may be beneficial. HgbA1c greater or equal to 6.5% is considered diagnostic of diabetes. Performed By: #### 5 5454-3 ####[facility] LABCLIA [id number] [place] [address] [place] Magnesium SerPl-mCncon 03-11 Magnesium [Mass/Vol] 1.7 mg/dL Normal 1.7-2.3 [facility] Comment on above: Order Comment: Fidelina murillo Type: BLOOD SPECIMENOrdering Facility: [facility] Address: [address] [place] [address] Performed By: #### 2 4323-8, 27465-8 ####[facility] STACEY [facility] H[facility]ITALATIF [id number] [place] [address] [place] T4 Free SerPl-mCncon 024 Free T4 [Mass/Vol] 0.8 ng/dL Low 0.9-1.[address] [facility] Comment on above: Order Comment: Speci men Type: BLOOD SPECIMENOrdering Facility: [facility] Address: [address] [place], [place] [address] Performed By: #### 3 024-7, 3016-3 ####[facility] LABCLIA [id number] [place] [address] [place] TSH SerPl-aCncon 03-11-2024 TSH Qn 5.240 m[IU]/L High 0.270-4.200 [facility] Comment on above: Order Comment: Speci men Type: BLOOD SPECIMENOrdering Facility: [facility] Address: [address] [place] [address] Performed By: #### 3 024-7, 3016-3 ####[facility] LABCLIA [id number] [place] [address] [place] CNPNon 03-07-2024 CNPN Normal [facility] CT ABD/PEL W IVCONon 024 CT ABD/PEL W IVCON Normal [facility] CT CHEST W IVCONon CT CHEST W IVCON Normal [facility] CNOVon 02-29-2024 CNOV Normal [facility] CNPNon 02-22-2024 CNPN Normal [facility] CBC W Auto Differential pane l (Bld)on 02-16-2024 Anisocytosis Ql (Bld) Present Normal [facility] Comment on above: Order Comment: Speci men Type: BLOOD SPECIMENOrdering Facility: [facility] Address: [address] [place] [address] Performed By: #### 5 7021-8 ####[facility] STACEY MUNOZATIF [id number] [place] [address] [place] [facility]AST[facility] LABCLIA [id number] [place] [address] [place] Basophils (Bld) [#/Vol] 0.00 10*3/uL Normal <0.11 [facility] Comment on above: Order Comment: Speci men Type: BLOOD SPECIMENOrdering Facility: [facility] Address: [address] [place] [address] Performed By: #### 5 7021-8 ####[facility]PITALLIA [id number] [place] [address] [place] [facility] LABCLIA [id number] [place] [address] [place] Basophils/100 WBC (Bld) 0.0 % Normal [facility] Comment on above: Order Comment: Speci men Type: BLOOD SPECIMENOrdering Facility: [facility] Address: [address] [place] [address] Performed By: #### 5 7021-8 ####[facility] [id number] [place] [address] [place] [facility] LABCLIA [id number] [place] [address] [place] BLAST% 3.0 % High <=0.0 [facility] Comment on above: Order Comment: Speci men Type: BLOOD SPECIMENOrdering Facility: [facility] Address: [address] [place] [address] Performed By: #### 5 7021-8 ####[facility] [id number] [place] [address] [place] [facility] LABCLIA [id number] [place] [address] [place] Differential cell count method Nom (Bld) Manual Normal [facility] Comment on above: Order Comment: Speci men Type: BLOOD SPECIMENOrdering Facility: [facility] Address: [address] [place] [address] Performed By: #### 5 7021-8 ####[facility] MILLTOWNCLIA [id number] [address] LABCLIA [id number] [place] [address] [place] Eosinophils (Bld) [#/Vol] 0.00 10*3/uL Normal <0.46 [facility] Comment on above: Order Comment: Speci men Type: BLOOD SPECIMENOrdering Facility: [facility] Address: [address] [place] [address] Performed By: #### 5 7021-8 ####[facility] CENTERWNCLIA [id number] [address] LABCLIA [id number] [place] [address] [place] Eosinophils/100 WBC (Bld) 0.0 % Normal [facility] Comment on above: Order Comment: Speci men Type: BLOOD SPECIMENOrdering Facility: [facility] Address: [address] [place] [address] Performed By: #### 5 7021-8 ####[facility] CENTERWNCLIA [id number] [address] LABCLIA [id number] [place] [address] [place] Erythrocyte distribution width (RBC) [Ratio] 16.7 % High 11.5-15.0 [facility] Comment on above: Order Comment: Speci men Type: BLOOD SPECIMENOrdering Facility: [facility] Address: [address] [place] [address] Performed By: #### 5 7021-8 ####[facility] MILLTOWNCLIA [id number] [address] LABCLIA [id number] [place] [address] [place] Giant platelets LM Ql (Bld) Occasional Normal [facility] Comment on above: Order Comment: Speci men Type: BLOOD SPECIMENOrdering Facility: [facility] Address: [address] [place] [address] Performed By: #### 5 7021-8 ####[facility] MILLWNCLIA [id number] [address] LABCLIA [id number] [place] [address] [place] Hematocrit (Bld) [Volume fraction] 30.8 % Low 39.0-51.0 [facility] Comment on above: Order Comment: Speci men Type: BLOOD SPECIMENOrdering Facility: [facility] Address: [address] [place] [address] Performed By: #### 5 7021-8 ####[facility] CENTERWNCLIA [id number] [address] STATES OF [facility] LABCLIA [id number] [place] [address] [place] Hemoglobin (Bld) [Mass/Vol] 9.9 g/dL Low 13.0-17.0 [facility] Comment on above: Order Comment: Speci men Type: BLOOD SPECIMENOrdering Facility: [facility] Address: [address] [place] [address] Performed By: #### 5 7021-8 ####[facility] MILLWNCLIA [id number] [address] LABCLIA [id number] [place] [address] [place] Lymphocytes (Bld) [#/Vol] 2.61 10*3/uL Normal 1.00-4.00 [facility] Comment on above: Order Comment: Speci men Type: BLOOD SPECIMENOrdering Facility: [facility] Address: [address] [place] [address] Performed By: #### 5 7021-8 ####[facility] TAMMYWNCLIA [id number] [address] LABCLIA [id number] [place] [address] [place] Lymphocytes/100 WBC (Bld) 21.0 % Normal [facility] Comment on above: Order Comment: Speci men Type: BLOOD SPECIMENOrdering Facility: [facility] Address: [address] [place] [address] Performed By: #### 5 7021-8 ####[facility] CENTERLORENZOLIA [id number] [address] LABCLIA [id number] [place] [address] [place] MCH (RBC) [Entitic mass] 30.9 pg Normal 26.0-34.0 [facility] Comment on above: Order Comment: Speci men Type: BLOOD SPECIMENOrdering Facility: [facility] Address: [address] [place] [address] Performed By: #### 5 7021-8 ####[facility] ORVILLEWNCLIA [id number] [address] LABCLIA [id number] [place] [address] [place] MCHC (RBC) [Mass/Vol] 32.1 g/dL Normal 30.5-36.0 [facility] Comment on above: Order Comment: Speci men Type: BLOOD SPECIMENOrdering Facility: [facility] Address: [address] [place] [address] Performed By: #### 5 7021-8 ####[facility] MILLWNCLIA [id number] [address] LABCLIA [id number] [place] [address] [place] MCV (RBC) [Entitic vol] 96.3 fL Normal 80.0-100.0 [facility] Comment on above: Order Comment: Speci men Type: BLOOD SPECIMENOrdering Facility: [facility] Address: [address] [place] [address] Performed By: #### 5 7021-8 ####[facility] MILLWNCLIA [id number] [address] LABCLIA [id number] [place] [address] [place] Metamyelocytes/100 WBC (Bld) 3.0 % Normal [facility] Comment on above: Order Comment: Speci men Type: BLOOD SPECIMENOrdering Facility: [facility] Address: [address] [place] [address] Performed By: #### 5 7021-8 ####[facility] CENTERWNCLIA [id number] [address] LABCLIA [id number] [place] [address] [place] Monocytes (Bld) [#/Vol] 0.62 10*3/uL Normal <0.87 [facility] Comment on above: Order Comment: Speci men Type: BLOOD SPECIMENOrdering Facility: [facility] Address: [address] [place] [address] Performed By: #### 5 7021-8 ####[facility] MILLTOWNCLIA [id number] [address] LABCLIA [id number] [place] [address] [place] Monocytes/100 WBC (Bld) 5.0 % Normal [facility] Comment on above: Order Comment: Speci men Type: BLOOD SPECIMENOrdering Facility: [facility] Address: [address] [place] [address] Performed By: #### 5 7021-8 ####[facility] MILLTOWNCLIA [id number] [address] LABCLIA [id number] [place] [address] [place] MYELO% 2.0 % Normal [facility] Comment on above: Order Comment: Speci men Type: BLOOD SPECIMENOrdering Facility: [facility] Address: [address] [place] [address] Performed By: #### 5 7021-8 ####[facility] MILLWNCLIA [id number] [address] LABCLIA [id number] [place] [address] [place] Neutrophils (Bld) [#/Vol] 8.19 10*3/uL High 1.45-7.50 [facility] Comment on above: Order Comment: Speci men Type: BLOOD SPECIMENOrdering Facility: [facility] Address: [address] [place] [address] Performed By: #### 5 7021-8 ####[facility] MILLTOWNCLIA [id number] [address] LABCLIA [id number] [place] [address] [place] Neutrophils/100 WBC (Bld) 66.0 % Normal [facility] Comment on above: Order Comment: Speci men Type: BLOOD SPECIMENOrdering Facility: [facility] Address: [address] [place] [address] Performed By: #### 5 7021-8 ####[facility] CENTERNCA [id number] [place] [address] [place] [facility] LABCLIA [id number] [place] [address] [place] Nucleated RBC (Bld) [#/Vol] 10*3/uL Normal <0.01 [facility] Comment on above: Order Comment: Speci men Type: BLOOD SPECIMENOrdering Facility: [facility] Address: [address] [place] [address] Performed By: #### 5 7021-8 ####[facility] CENTERWTNLIA [id number] [address] STATES OF [facility] LABCLIA [id number] [place] [address] [place] Nucleated RBC/100 WBC (Bld) [Ratio] 0.0 /100 WBC Normal [facility] Comment on above: Order Comment: Speci men Type: BLOOD SPECIMENOrdering Facility: [facility] Address: [address] [place] [address] Performed By: #### 5 7021-8 ####[facility] HOSPITALLIA [id number] [place] [address] [place] [facility] LABCLIA [id number] [place] [address] [place] Ovalocytes LM Ql (Bld) Few Normal [facility] Comment on above: Order Comment: Speci men Type: BLOOD SPECIMENOrdering Facility: [facility] Address: [address] [place], [place] [address] Performed By: #### 5 7021-8 ####[facility] CENTERWTNLIA [id number] [place] [address] [place] [facility] LABCLIA [id number] [place] [address] [place] Platelet mean volume (Bld) [Entitic vol] 10.1 fL Normal 9.0-12.7 [facility] Comment on above: Order Comment: Speci men Type: BLOOD SPECIMENOrdering Facility: [facility] Address: [address] [place] [address] Performed By: #### 5 7021-8 ####[facility] MILLTOWNCLIA [id number] [address] STATES OF [facility] LABCLIA [id number] [address] [address] [place] Platelets (Bld) [#/Vol] 313 10*3/uL Normal 150-400 [facility] Comment on above: Order Comment: Speci men Type: BLOOD SPECIMENOrdering Facility: [facility] Address: [address] [place] [address] Performed By: #### 5 7021-8 ####[facility] MILLTOWNCLIA [id number] [address] STATES OF [facility] LABCLIA [id number] [place] [address] [place] Platelets Estimate (Bld) [#/Vol] Adequate Normal [facility] Comment on above: Order Comment: Speci men Type: BLOOD SPECIMENOrdering Facility: [facility] Address: [address] [place] [address] Performed By: #### 5 7021-8 ####[facility] MILLTOWNCLIA [id number] [address] STATES OF [facility] LABCLIA [id number] [place] [address] [place] Polychromasia LM Ql (Bld) Slight Normal [facility] Comment on above: Order Comment: Speci men Type: BLOOD SPECIMENOrdering Facility: [facility] Address: [address] [place] [address] Performed By: #### 5 7021-8 ####[facility] MILLTOWNCLIA [id number] [address] LABCLIA [id number] [place] [address] [place] RBC (Bld) [#/Vol] 3.20 10*6/uL Low 4.20-6.00 [facility] Comment on above: Order Comment: Speci men Type: BLOOD SPECIMENOrdering Facility: [facility] Address: [address] [place] [address] Performed By: #### 5 7021-8 ####[facility] CENTERWNCLIA [id number] [address] LABCLIA [id number] [place] [address] [place] RED CELL MORPH Reviewed: see result s of individual morphologies Normal [facility] Comment on above: Order Comment: Speci men Type: BLOOD SPECIMENOrdering Facility: [facility] Address: [address] [place] [address] Performed By: #### 5 7021-8 ####[facility] CENTERNCLIA [id number] [address] LABCLIA [id number] [place] [address] [place] Target cells LM Ql (Bld) Few Normal [facility] Comment on above: Order Comment: Speci men Type: BLOOD SPECIMENOrdering Facility: [facility] Address: [address] [place] [address] Performed By: #### 5 7021-8 ####[facility] MILLTOWNCLIA [id number] [place] [address] [place] [facility] LABCLIA [id number] [place] [address] [place] WBC (Bld) [#/Vol] 12.41 10*3/uL High 3.70-11.00 [facility] Comment on above: Order Comment: Speci men Type: BLOOD SPECIMENOrdering Facility: [facility] Address: [address] [place] [address] Performed By: #### 5 7021-8 ####[facility] HOSPITALLIA [id number] [place] [address] [place] [facility] LABCLIA [id number] [place] [address] [place] WBC Left Shift Ql (Bld) Present Normal [facility] Comment on above: Order Comment: Speci men Type: BLOOD SPECIMENOrdering Facility: [facility] Address: [address] [place] [address] Performed By: #### 5 7021-8 ####[facility]OSPITALLIA [id number] [place] [address] [place] [facility] LABCLIA [id number] [place] [address] [place] CNOVSPon 02-16-2024 CNOVSP Normal [facility] Comprehensive metabolic 2000 panelon 02-16-2024 Albumin [Mass/Vol] 4.1 g/dL Normal 3.9-4.[address] [facility] Comment on above: Order Comment: Speci men Type: BLOOD SPECIMENOrdering Facility: [facility] Address: [address] [place] [address] Performed By: #### 2 4323-8, 96980-4 ####[facility] CENTERA [id number] [place] [address] [place] ALP [Catalytic activity/Vol] 246 U/L High 38-113 [facility] Comment on above: Order Comment: Speci men Type: BLOOD SPECIMENOrdering Facility: [facility] Address: [address] [place] [address] Performed By: #### 2 4323-8, 08465-6 ####[facility] OTTOLIA [id number] [place] [address] [place] ALT [Catalytic activity/Vol] 27 U/L Normal 10-54 [facility] Comment on above: Order Comment: Speci men Type: BLOOD SPECIMENOrdering Facility: [facility] Address: [address] [place] [address] Performed By: #### 2 4323-8, ####[facility] ORVILLERupertNCLIA [id number] [place] [address] [place] Anion gap [Moles/Vol] 12 mmol/L Normal 8-15 [facility] Comment on above: Order Comment: Speci men Type: BLOOD SPECIMENOrdering Facility: [facility] Address: [address] [place] [address] Performed By: #### 2 4323-8, ####[facility] ORVILLEPHILADELPHIALORENZOLIA [id number] [place] [address] [place] AST [Catalytic activity/Vol] 28 U/L Normal 14-40 [facility] Comment on above: Order Comment: Speci men Type: BLOOD SPECIMENOrdering Facility: [facility] Address: [address] [place] [address] Performed By: #### 2 4323-8, ####[facility] ORVILLEWNCLIA [id number] [place] [address] [place] Bilirubin [Mass/Vol] 0.3 mg/dL Normal 0.2-1.3 [facility] Comment on above: Order Comment: Speci men Type: BLOOD SPECIMENOrdering Facility: [facility] Address: [address] [place] [address] Performed By: #### 2 4323-, ####[facility] STACEY MILLTOWNCLIA [id number] [place] [address] [place] Calcium [Mass/Vol] 9.1 mg/dL Normal 8.5-10.[address] [facility] Comment on above: Order Comment: Speci men Type: BLOOD SPECIMENOrdering Facility: [facility] Address: [address] [place] [address] Performed By: #### 2 432-8, ####[facility] MILLTOWNCLIA [id number] [place] [address] [place] Chloride [Moles/Vol] 102 mmol/L Normal 98-107 [facility] Comment on above: Order Comment: Speci men Type: BLOOD SPECIMENOrdering Facility: [facility] Address: [address] [place] [address] Performed By: #### 2 4328, ####[facility]ITALLIA [id number] [place] [address] [place] CO2 [Moles/Vol] 20 mmol/L Low 22-30 [facility] Comment on above: Order Comment: Speci men Type: BLOOD SPECIMENOrdering Facility: [facility] Address: [address] [place] [address] Performed By: #### 2 4328, ####[facility] MILLWNCLIA [id number] [place] [address] [place] Creatinine [Mass/Vol] 0.79 mg/dL Normal 0.73-1.22 [facility] Comment on above: Order Comment: Speci men Type: BLOOD SPECIMENOrdering Facility: [facility] Address: [address] [place] [address] Performed By: #### 2 4323-8, ####[facility] MILLPHILADELPHIALORENZOLIA [id number] [place] [address] [place] Creatinine and Glomerular filtration rate.predicted panel (S/P/Bld) 97 mL/min/1.73m??? Normal >=60 [facility] Comment on above: Order Comment: Fidelina murillo Type: BLOOD SPECIMENOrdering Facility: [facility] Address: [address] [place] [address] Result Comment: Rekha mated Glomerular Filtration Rate (eGFR) is calculated using the 2020 CKD-EPI creatinine equation. This equation utilizes serum creatinine, sex, and age as parameters. The creatinine assay has traceable calibration to isotope dilution-mass spectrometry. Refer to KDIGO guidelines for clinical interpretation. In patients with unstable renal function, e.g. those with acute kidney injury, the eGFR may not accurately reflect actual GFR. Performed By: #### 2 4323-8, 77089-0 ####[facility] [id number] [place] [address] [place] Glucose [Mass/Vol] 149 mg/dL High 74-[address] [facility] Comment on above: Order Comment: Fidelina murillo Type: BLOOD SPECIMENOrdering Facility: [facility] Address: [address] [place] [address] Result Comment: The [place] [employer] (ADA) provides guidance for cutoff values for fasting glucose and random glucose. The ADA defines fasting as no caloric intake for at least 8 hours. Fasting plasma glucose results between 100 to 125 mg/dL indicate increased risk for diabetes (prediabetes).Fasting plasma glucose results greater than or equal to 126 mg/dL meet the criteria for diagnosis of diabetes. In the absence of unequivocal hyperglycemia, results should be confirmed by repeat testing. In a patient with classic symptoms of hyperglycemia or hyperglycemic crisis, random plasma glucose results greater than or equal to 200 mg/dL meet the criteria for diagnosis of diabetes.Reference: Standards of Medical Care in Diabetes 2016, [place] [employer]. Diabetes Care. 2016.39(Suppl 1). Performed By: #### 2 4323-8, 78843-8 ####[facility] [id number] [place] [address] [place] Potassium [Moles/Vol] 4.7 mmol/L Normal 3.7-5.1 [facility] Comment on above: Order Comment: Speci men Type: BLOOD SPECIMENOrdering Facility: [facility] Address: [address] [place] [address] Performed By: #### 2 4323-8, ####[facility] [id number] [place] [id number] [place] Protein [Mass/Vol] 6.9 g/dL Normal 6.3-8.[address] [facility] Comment on above: Order Comment: Speci men Type: BLOOD SPECIMENOrdering Facility: [facility] [place] Address: [address] [place] [address] Performed By: #### 2 4323-8, ####[facility] EMERGENCYGUSTABONCBOBBI [id number] [place] [address] [place] Sodium [Moles/Vol] 134 mmol/L Low 136-[address] [facility] Comment on above: Order Comment: Speci men Type: BLOOD SPECIMENOrdering Facility: [facility] Address: [address] [place] [address] Performed By: #### 2 4323-8, ####[facility] CENTERNCBOBBI [id number] [place] [address] [place] Urea nitrogen [Mass/Vol] 10 mg/dL Normal 9-24 [facility] Comment on above: Order Comment: Speci men Type: BLOOD SPECIMENOrdering Facility: [facility] Address: [address] [place] [address] Performed By: #### 2 4323-8, ####[facility] CENTERNCLIA [id number] [place] [address] [place] Magnesium SerPl-mCncon 02-15 Magnesium [Mass/Vol] 1.7 mg/dL Normal 1.7-2.3 [facility] Comment on above: Order Comment: Speci men Type: BLOOD SPECIMENOrdering Facility: [facility] Address: [address] [place] [address] Performed By: #### 2 4323-8, 30734-4 ####[facility] CENTERWNCLIA [id number] [place] [address] [place] CNPNon 02-06-2024 CNPN Normal [facility] CNPNon 02-02-2024 CNPN Normal [facility] CNPNon 02-01-2024 CNPN Normal [facility] CBC W Auto Differential pane l (Bld)on 01-29-2024 Basophils (Bld) [#/Vol] 0.04 10*3/uL Normal <0.11 [facility] Comment on above: Order Comment: Speci men Type: BLOOD SPECIMENOrdering Facility: [facility] Address: [address] [place] [address] Performed By: #### 5 7021-8 ####[facility] CENTERNCLIA [id number] [place] [address] [place] Basophils/100 WBC (Bld) 0.5 % Normal [facility] Comment on above: Order Comment: Speci men Type: BLOOD SPECIMENOrdering Facility: [facility] Address: [address] [place] [address] Performed By: #### 5 7021-8 ####[facility]ENTERNCLIA [id number] [place] [address] [place] Differential cell count method Nom (Bld) Auto Normal [facility] Comment on above: Order Comment: Speci men Type: BLOOD SPECIMENOrdering Facility: [facility] Address: [address] [place] [address] Performed By: #### 5 7021-8 ####[facility] CENTERNCLIA [id number] [place] [address] [place] Eosinophils (Bld) [#/Vol] 0.04 10*3/uL Normal <0.46 [facility] Comment on above: Order Comment: Speci men Type: BLOOD SPECIMENOrdering Facility: [facility] Address: [address] [place] [address] Performed By: #### 5 7021-8 ####[facility]ENTERNCMOUNTAIN [facility] [id number] [place] [address] [place] Eosinophils/100 WBC (Bld) 0.5 % Normal [facility] Comment on above: Order Comment: Speci men Type: BLOOD SPECIMENOrdering Facility: [facility] Address: [address] [place] [address] Performed By: #### 5 7021-8 ####[facility]ENTERNCMOUNTAIN [facility] [id number] [place] [address] [place] Erythrocyte distribution width (RBC) [Ratio] 15.1 % High 11.5-15.0 [facility] Comment on above: Order Comment: Speci men Type: BLOOD SPECIMENOrdering Facility: [facility] Address: [address] [place] [address] Performed By: #### 5 7021-8 ####[facility] CENTERNCLI [id number] [place] [address] [place] Hematocrit (Bld) [Volume fraction] 33.3 % Low 39.0-51.0 [facility] Comment on above: Order Comment: Speci men Type: BLOOD SPECIMENOrdering Facility: [facility] Address: [address] [place] [address] Performed By: #### 5 7021-8 ####[facility] CENTERNCLIA [id number] [place] [address] [place] Hemoglobin (Bld) [Mass/Vol] 11.3 g/dL Low 13.0-17.0 [facility] Comment on above: Order Comment: Speci men Type: BLOOD SPECIMENOrdering Facility: [facility] Address: [address] [place] [address] Performed By: #### 5 7021-8 ####[facility] ROSALEE [id number] [place] [address] [place] Immature granulocytes (Bld) [#/Vol] 0.19 10*3/uL High <0.10 [facility] Comment on above: Order Comment: Speci men Type: BLOOD SPECIMENOrdering Facility: [facility] Address: [address] [place] [address] Performed By: #### 5 7021-8 ####[facility] CENTERA [id number] [place] [address] [place] Immature granulocytes/100 WBC (Bld) 2.3 % Normal [facility] Comment on above: Order Comment: Speci men Type: BLOOD SPECIMENOrdering Facility: [facility] Address: [address] [place] [address] Performed By: #### 5 7021-8 ####[facility] [id number] [place] [address] [place] Lymphocytes (Bld) [#/Vol] 0.98 10*3/uL Low 1.00-4.00 [facility] Comment on above: Order Comment: Speci men Type: BLOOD SPECIMENOrdering Facility: [facility] Address: [address] [place] [address] Performed By: #### 5 7021-8 ####[facility] HOSPITALLIA [id number] [place] [address] [place] Lymphocytes/100 WBC (Bld) 11.9 % Normal [facility] Comment on above: Order Comment: Speci men Type: BLOOD SPECIMENOrdering Facility: [facility] Address: [address] [place] [address] Performed By: #### 5 7021-8 ####[facility] CENTERNCLIA [id number] [place] [address] [place] MCH (RBC) [Entitic mass] 31.1 pg Normal 26.0-34.0 [facility] Comment on above: Order Comment: Speci men Type: BLOOD SPECIMENOrdering Facility: [facility] Address: [address] [place] [address] Performed By: #### 5 7021-8 ####[facility] [id number] [place] [address] [place] MCHC (RBC) [Mass/Vol] 33.9 g/dL Normal 30.5-36.0 [facility] Comment on above: Order Comment: Speci men Type: BLOOD SPECIMENOrdering Facility: [facility] Address: [address] [place] [address] Performed By: #### 5 7021-8 ####[facility] [id number] [place] [address] [place] MCV (RBC) [Entitic vol] 91.7 fL Normal 80.0-100.0 [facility] Comment on above: Order Comment: Speci men Type: BLOOD SPECIMENOrdering Facility: [facility] Address: [address] [place] [address] Performed By: #### 5 7021-8 ####[facility] [id number] [place] [address] [place] Monocytes (Bld) [#/Vol] 0.58 10*3/uL Normal <0.87 [facility] Comment on above: Order Comment: Speci men Type: BLOOD SPECIMENOrdering Facility: [facility] Address: [address] [place] [address] Performed By: #### 5 7021-8 ####[facility] [id number] [place] [address] [place] Monocytes/100 WBC (Bld) 7.1 % Normal [facility] Comment on above: Order Comment: Speci men Type: BLOOD SPECIMENOrdering Facility: [facility] Address: [address] [place] [address] Performed By: #### 5 7021-8 ####[facility] CENTERA [id number] [place] [address] [place] Neutrophils (Bld) [#/Vol] 6.38 10*3/uL Normal 1.45-7.50 [facility] Comment on above: Order Comment: Speci men Type: BLOOD SPECIMENOrdering Facility: [facility] Address: [address] [place] [address] Performed By: #### 5 7021-8 ####[facility] [id number] [place] [address] [place] Neutrophils/100 WBC (Bld) 77.7 % Normal [facility] Comment on above: Order Comment: Speci men Type: BLOOD SPECIMENOrdering Facility: [facility] Address: [address] [place] [address] Performed By: #### 5 7021-8 ####[facility] [id number] [place] [address] [place] Nucleated RBC (Bld) [#/Vol] 10*3/uL Normal <0.01 [facility] Comment on above: Order Comment: Speci men Type: BLOOD SPECIMENOrdering Facility: [facility] Address: [address] [place] [address] Performed By: #### 5 7021-8 ####[facility] [id number] [place] [address] [place] Nucleated RBC/100 WBC (Bld) [Ratio] 0.0 /100 WBC Normal [facility] Comment on above: Order Comment: Speci men Type: BLOOD SPECIMENOrdering Facility: [facility] Address: [address] [place] [address] Performed By: #### 5 7021-8 ####[facility] KANDYNCBOBBI [id number] [place] [address] [place] Platelet mean volume (Bld) [Entitic vol] 10.0 fL Normal 9.0-12.7 [facility] Comment on above: Order Comment: Speci men Type: BLOOD SPECIMENOrdering Facility: [facility] Address: [address] [place] [address] Performed By: #### 5 7021-8 ####[facility] CENTERNCRhonda [id number] [place] [address] [place] Platelets (Bld) [#/Vol] 296 10*3/uL Normal 150-400 [facility] Comment on above: Order Comment: Speci men Type: BLOOD SPECIMENOrdering Facility: [facility] Address: [address] [place] [address] Performed By: #### 5 7021-8 ####[facility] CENTERNCMICHELA [id number] [place] [address] [place] RBC (Bld) [#/Vol] 3.63 10*6/uL Low 4.20-6.00 [facility] Comment on above: Order Comment: Speci men Type: BLOOD SPECIMENOrdering Facility: [facility] Address: [address] [place] [address] Performed By: #### 5 7021-8 ####[facility] CENTERNCLIA [id number] [place] [address] [place] WBC (Bld) [#/Vol] 8.21 10*3/uL Normal 3.70-11.00 [facility] Comment on above: Order Comment: Speci men Type: BLOOD SPECIMENOrdering Facility: [facility] Address: [address] [id number] Performed By: #### 5 7021-8 ####[facility] KANDYNCLIA [id number] [place] [address] [place] CNPNon 01-29-2024 CNPN Normal [facility] Comprehensive metabolic 2000 panelon 01-29-2024 Albumin [Mass/Vol] 4.0 g/dL Normal 3.9-4.[address] [facility] Comment on above: Order Comment: Speci men Type: BLOOD SPECIMENOrdering Facility: [facility] Address: [address] [place] [address] Performed By: #### 2 532-0, 3084-1, 34091-2 ####[facility] ORVILLERupertNCMICHELA [id number] [place] [address] [place] ALP [Catalytic activity/Vol] 325 U/L High 38-113 [facility] Comment on above: Order Comment: Speci men Type: BLOOD SPECIMENOrdering Facility: [facility] Address: [address] [place] [address] Performed By: #### 2 532-0, 3084-1, 06222-6 ####[facility] ORVILLEPHILADELPHIALORENZOMICHELA [id number] [place] [address] [place] ALT [Catalytic activity/Vol] 40 U/L Normal 10-54 [facility] Comment on above: Order Comment: Speci men Type: BLOOD SPECIMENOrdering Facility: [facility] Address: [address] [place] [address] Performed By: #### 2 532-0, 3084-1, 51299-2 ####[facility] ORVILLEPHILADELPHIANCLIA [id number] [place] [address] [place] Anion gap [Moles/Vol] 13 mmol/L Normal 8-15 [facility] Comment on above: Order Comment: Speci men Type: BLOOD SPECIMENOrdering Facility: [facility] Address: [address] [place] [address] Performed By: #### 2 532-0, 3084-1, 57074-0 ####[facility] MOISESA [id number] [place] [address] [place] AST [Catalytic activity/Vol] 50 U/L High 14-40 [facility] Comment on above: Order Comment: Speci men Type: BLOOD SPECIMENOrdering Facility: [facility] Address: [address] [place] [address] Performed By: #### 2 532-0, 3084-1, 26829-1 ####[facility] ORVILLEJUAN [id number] [place] [address] [place] Bilirubin [Mass/Vol] 0.6 mg/dL Normal 0.2-1.3 [facility] Comment on above: Order Comment: Speci men Type: BLOOD SPECIMENOrdering Facility: [facility] Address: [address] [place] [address] Performed By: #### 2 532-0, 3084-1, 83896-6 ####[facility] ORVILLEPHILADELPHIAATIF [id number] [place] [address] [place] Calcium [Mass/Vol] 9.7 mg/dL Normal 8.5-10.[address] [facility] Comment on above: Order Comment: Speci men Type: BLOOD SPECIMENOrdering Facility: [facility] Address: [address] [place] [address] Performed By: #### 2 532-0, 3084-1, 34383-8 ####[facility] CENTERLORENZOLIA [id number] [place] [address] [place] Chloride [Moles/Vol] 89 mmol/L Low 98-107 [facility] Comment on above: Order Comment: Speci men Type: BLOOD SPECIMENOrdering Facility: [facility] Address: [address] [place] [address] Performed By: #### 2 532-0, 3084-1, 08754-1 ####[facility] STACEY KANDYNCLIA [id number] [place] [address] [place] CO2 [Moles/Vol] 23 mmol/L Normal 22-30 [facility] Comment on above: Order Comment: Speci men Type: BLOOD SPECIMENOrdering Facility: [facility] Address: [address] [place] [address] Performed By: #### 2 532-0, 3084-1, 91362-9 ####[facility] ORVILLEPHILADELPHIANCLIA [id number] [place] [address] [place] Creatinine [Mass/Vol] 0.75 mg/dL Normal 0.73-1.22 [facility] Comment on above: Order Comment: Speci men Type: BLOOD SPECIMENOrdering Facility: [facility] Address: [address] [place] [address] Performed By: #### 2 532-0, 3084-1, 07743-1 ####[facility] ORVILLEPHILADELPHIANCLIA [id number] [place] [address] [place] Creatinine and Glomerular filtration rate.predicted panel (S/P/Bld) 99 mL/min/1.73m??? Normal >=60 [facility] Comment on above: Order Comment: Speci men Type: BLOOD SPECIMENOrdering Facility: [facility] Address: [address] [place] [address] Result Comment: Rekha mated Glomerular Filtration Rate (eGFR) is calculated using the 2020 CKD-EPI creatinine equation. This equation utilizes serum creatinine, sex, and age as parameters. The creatinine assay has traceable calibration to isotope dilution-mass spectrometry. Refer to KDIGO guidelines for clinical interpretation. In patients with unstable renal function, e.g. those with acute kidney injury, the eGFR may not accurately reflect actual GFR. Performed By: #### 2 532-0, 3084-1, 59534-9 ####[facility] ORVILLEWNCLIA [id number] [place] [address] [place] Glucose [Mass/Vol] 140 mg/dL High 74-[address] [facility] Comment on above: Order Comment: Speci men Type: BLOOD SPECIMENOrdering Facility: [facility] Address: [address] [place] [address] Result Comment: The [place] [employer] (ADA) provides guidance for cutoff values for fasting glucose and random glucose. The ADA defines fasting as no caloric intake for at least 8 hours. Fasting plasma glucose results between 100 to 125 mg/dL indicate increased risk for diabetes (prediabetes).Fasting plasma glucose results greater than or equal to 126 mg/dL meet the criteria for diagnosis of diabetes. In the absence of unequivocal hyperglycemia, results should be confirmed by repeat testing. In a patient with classic symptoms of hyperglycemia or hyperglycemic crisis, random plasma glucose results greater than or equal to 200 mg/dL meet the criteria for diagnosis of diabetes.Reference: Standards of Medical Care in Diabetes 2016, [place] [employer]. Diabetes Care. 2016.39(Suppl 1). Performed By: #### 2 532-0, 3084-1, 77013-9 ####[facility]PITALLIA [id number] [place] [address] [place] Potassium [Moles/Vol] 4.7 mmol/L Normal 3.7-5.1 [facility] Comment on above: Order Comment: Speci men Type: BLOOD SPECIMENOrdering Facility: [facility] Address: [address] [place] [address] Performed By: #### 2 532-0, 3084-1, 09650-2 ####[facility]PITALLIA [id number] [place] [address] [place] Protein [Mass/Vol] 7.1 g/dL Normal 6.3-8.[address] [facility] Comment on above: Order Comment: Speci men Type: BLOOD SPECIMENOrdering Facility: [facility] Address: [address] [place] [address] Performed By: #### 2 532-0, 3084-1, 12778-9 ####[facility]ENTERNCLIA [id number] [place] [address] [place] Sodium [Moles/Vol] 125 mmol/L Low 136-[address] [facility] Comment on above: Order Comment: Speci men Type: BLOOD SPECIMENOrdering Facility: [facility] Address: [address] [place] [address] Performed By: #### 2 532-0, 3084-1, 63540-5 ####[facility] CENTERNCA [id number] [place] [address] [place] Urea nitrogen [Mass/Vol] 10 mg/dL Normal 9-24 [facility] Comment on above: Order Comment: Speci men Type: BLOOD SPECIMENOrdering Facility: [facility] Address: [address] [place] [address] Performed By: #### 2 532-0, 3084-1, 13193-2 ####[facility]ENTERNCLIA [id number] [place] [address] [place] Cortis SerPl-mCncon 01-29-20 Cortisol [Mass/Vol] 19.8 ug/dL High 4.8-19.5 [facility] Comment on above: Order Comment: Speci men Type: BLOOD SPECIMENOrdering Facility: [facility] Address: [address] [place] [address] Result Comment: Prov ided reference range is from 6-10 AM sample collection time.Cortisol Reference Range: 6-10 AM = 4.8-19.5 ug/dL, 4-8 PM = 2.5-11.9 ug/dL Performed By: #### 3 024-7, 3016-3, 2143-6 ####[facility] LABCLIA [id number] [place] [address] [place] LDH SerPl-cCncon 01-29-2024 LDH [Catalytic activity/Vol] 480 U/L High 135-225 [facility] Comment on above: Order Comment: Speci men Type: BLOOD SPECIMENOrdering Facility: [facility] Address: [address] [place] [address] Performed By: #### 2 532-0, 3084-1, 70711-8 ####[facility]ENTERNCLIA [id number] [place] [address] [place] Magnesium SerPl-mCncon 01-28 Magnesium [Mass/Vol] 1.2 mg/dL Low 1.7-2.3 [facility] Comment on above: Order Comment: Speci men Type: BLOOD SPECIMENOrdering Facility: [facility] Address: [address] [place] [address] Performed By: #### 1 9123-9 ####[facility] CENTERA [id number] [place] [address] [place] T4 Free SerPl-mCncon 024 Free T4 [Mass/Vol] 1.2 ng/dL Normal 0.9-1.[address] [facility] Comment on above: Order Comment: Speci men Type: BLOOD SPECIMENOrdering Facility: [facility] Address: [address] [place] [address] Performed By: #### 3 024-7, 3016-3, 6 ####[facility] LABCLIA [id number] [place] [address] [place] TSH SerPl-aCncon 01-29-2024 TSH Qn 4.330 m[IU]/L High 0.270-4.200 [facility] Comment on above: Order Comment: Speci men Type: BLOOD SPECIMENOrdering Facility: [facility] Address: [address] [place] [address] Performed By: #### 3 024-7, 3016-3, 2142-6 ####[facility] LABCLIA [id number] [place] [id number] [place] Urate SerPl-mCncon Urate [Mass/Vol] 5.3 mg/dL Normal 4.0-8.1 [facility] Comment on above: Order Comment: Speci men Type: BLOOD SPECIMENOrdering Facility: [facility] Address: [address] [place] [address] Performed By: #### 2 532-0, 3084-1, 10345-5 ####[facility] [id number] [place] [id number] [place] CNOVon 01-25-2024 CNOV Normal [facility] UA DIP, URINE (POC)on 2023 BILIRUBIN UA (POCT) Small Abnormal Negative [facility] CLARITY UA (POCT) Clear [facility] COLOR UA (POCT) [place] [facility] GLUCOSE UA (POCT) Negative Negative mg/dL [facility] Hemoglobin Ql (U) Negative Negative [facility] Interpretation and review of laboratory results Abnormal [facility] KETONE UA (POCT) Negative Negative mg/dL [facility] LEUKOCYTES UA (POCT) Negative Negative [facility] NITRITE UA (POCT) Negative Negative [facility] PH UA (POCT) 5.5 4.5 - 8.0 [facility] Protein Ql (U) 30 mg/dL Abnormal Negative [facility] SPECIFIC GRAVITY UA (POCT) >=1.030 1.005 - 1.030 [facility] UROBILINOGEN UA (POCT) 4.0 Abnormal Anabela l E.U./dL [facility] Location:[facility], [address] [place] [address], [place], [place], [id number] [place] [address] POINT OF CARE [facility] CNPNon 01-23-2024 CNPN Normal [facility] CNPNon 01-19-2024 CNPN Normal [facility] CNPNon 01-18-2024 CNPN Normal [facility] Basic metabolic 2000 panelon 01-16-2024 Anion gap [Moles/Vol] 16 mmol/L High 8-15 [facility] Comment on above: Order Comment: Speci men Type: BLOOD SPECIMENOrdering Facility: [facility] Address: [address] [place] [address] Performed By: #### 2 4321-2 ####[facility] STACEY MILLTOWNCLIA [id number] [place] [address] [place] Calcium [Mass/Vol] 9.7 mg/dL Normal 8.5-10.[address] [facility] Comment on above: Order Comment: Speci men Type: BLOOD SPECIMENOrdering Facility: [facility] Address: [address] [place] [address] Performed By: #### 2 4321-2 ####[facility] MILLTOWNCLIA [id number] [place] [address] [place] Chloride [Moles/Vol] 91 mmol/L Low 98-107 [facility] Comment on above: Order Comment: Speci men Type: BLOOD SPECIMENOrdering Facility: [facility] Address: [address] [place] [address] Performed By: #### 2 4321-2 ####[facility] MILLTOWNCLIA [id number] [place] [address] [place] CO2 [Moles/Vol] 23 mmol/L Normal 22-30 [facility] Comment on above: Order Comment: Speci men Type: BLOOD SPECIMENOrdering Facility: [facility] Address: [address] [place] [address] Performed By: #### 2 4321-2 ####[facility] [place]OWNCL[facility] [id number] [place] [address] [place] Creatinine [Mass/Vol] 0.93 mg/dL Normal 0.73-1.22 [facility] Comment on above: Order Comment: Speci men Type: BLOOD SPECIMENOrdering Facility: [facility] Address: [address] [place] [address] Performed By: #### 2 4321-2 ####[facility] [place]OWNCL[facility] [id number] [place] [address] [place] Creatinine and Glomerular filtration rate.predicted panel (S/P/Bld) 90 mL/min/1.73m??? Normal >=60 [facility] Comment on above: Order Comment: Fidelina murillo Type: BLOOD SPECIMENOrdering Facility: [facility] Address: [address] [place] [address] Result Comment: Rekha mated Glomerular Filtration Rate (eGFR) is calculated using the 2020 CKD-EPI creatinine equation. This equation utilizes serum creatinine, sex, and age as parameters. The creatinine assay has traceable calibration to isotope dilution-mass spectrometry. Refer to KDIGO guidelines for clinical interpretation. In patients with unstable renal function, e.g. those with acute kidney injury, the eGFR may not accurately reflect actual GFR. Performed By: #### 2 4321-2 ####[facility] [id number] [place] [address] [place] Glucose [Mass/Vol] 154 mg/dL High 74-[address] [facility] Comment on above: Order Comment: Fidelina murillo Type: BLOOD SPECIMENOrdering Facility: [facility] Address: [address] [place] [address] Result Comment: The [place] Diabetes Association (ADA) provides guidance for cutoff values for fasting glucose and random glucose. The ADA defines fasting as no caloric intake for at least 8 hours. Fasting plasma glucose results between 100 to 125 mg/dL indicate increased risk for diabetes (prediabetes).Fasting plasma glucose results greater than or equal to 126 mg/dL meet the criteria for diagnosis of diabetes. In the absence of unequivocal hyperglycemia, results should be confirmed by repeat testing. In a patient with classic symptoms of hyperglycemia or hyperglycemic crisis, random plasma glucose results greater than or equal to 200 mg/dL meet the criteria for diagnosis of diabetes.Reference: Standards of Medical Care in Diabetes 2016, [place] Diabetes Association. Diabetes Care. 2016.39(Suppl 1). Performed By: #### 2 4321-2 ####[facility] [id number] [place] [address] [place] Potassium [Moles/Vol] 4.8 mmol/L Normal 3.7-5.1 [facility] Comment on above: Order Comment: Speci men Type: BLOOD SPECIMENOrdering Facility: [facility] Address: [address] [place] [address] Performed By: #### 2 4321-2 ####[facility] STACEY MILLTOWNCLIA [id number] [place] [address] [place] Sodium [Moles/Vol] 130 mmol/L Low 136-[address] [facility] Comment on above: Order Comment: Speci men Type: BLOOD SPECIMENOrdering Facility: [facility] Address: [address] [place] [address] Performed By: #### 2 4321-2 ####[facility] [id number] [place] [address] [place] Urea nitrogen [Mass/Vol] 26 mg/dL High 9-24 [facility] Comment on above: Order Comment: Speci men Type: BLOOD SPECIMENOrdering Facility: [facility] Address: [address] [place] [address] Performed By: #### 2 4321-2 ####[facility] [id number] [place] [address] [place] CNOVSPon 01-16-2024 CNOVSP Normal [facility] CNPNon 01-15-2024 CNPN Normal [facility] CNPNon 01-14-2024 CNPN Normal [facility] CNOVSPon 01-12-2024 CNOVSP Normal [facility] CNPNon 01-12-2024 CNPN Normal [facility] Comprehensive metabolic 2000 panelOrdered By: Cait Soriano on 01-12-2024 Albumin [Mass/Vol] 4.5 g/dL 3.9 - 4.9 g/dL [facility] ALP [Catalytic activity/Vol] 277 U/L High 38 - 113 U/L [facility] ALT [Catalytic activity/Vol] 41 U/L 10 - 54 U/L [facility] Anion gap [Moles/Vol] 14 mmol/L 8 - 15 mmol/L [facility] AST [Catalytic activity/Vol] 55 U/L High 14 - 40 U/L [facility] Bilirubin [Mass/Vol] 0.7 mg/dL 0.2 - 1 .3 mg/dL [facility] Calcium [Mass/Vol] 9.9 mg/dL 8.5 - 10. 2 mg/dL [facility] Chloride [Moles/Vol] 86 mmol/L Low 98 - 10 7 mmol/L [facility] CO2 [Moles/Vol] 24 mmol/L 22 - 30 mmol/L [facility] Creatinine [Mass/Vol] 0.79 mg/dL 0.73 - 1.22 mg/dL [facility] GFR/1.73 sq M.predicted among non-blacks MDRD (S/P/Bld) [Vol rate/Area] 97 mL/min/{1.73_m2} - PINF [facility] Comment on above: Estimated Glomerular Filtration Rate (eGFR) is calculated using the 2020 CKD-EPI creatinine equation. This equation utilizes serum creatinine, sex, and age as parameters. The creatinine assay has traceable calibration to isotope dilution-mass spectrometry. Refer to KDIGO guidelines for clinical interpretation. In patients with unstable renal function, e.g. those with acute kidney injury, the eGFR may not accurately reflect actual GFR. Glucose [Mass/Vol] 127 mg/dL High 74 - 99 mg/dL [facility] Comment on above: The [place] Diabete s Association (ADA) provides guidance for cutoff values for fasting glucose and random glucose. The ADA defines fasting as no caloric intake for at least 8 hours. Fasting plasma glucose results between 100 to 125 mg/dL indicate increased risk for diabetes (prediabetes). Fasting plasma glucose results greater than or equal to 126 mg/dL meet the criteria for diagnosis of diabetes. In the absence of unequivocal hyperglycemia, results should be confirmed by repeat testing. In a patient with classic symptoms of hyperglycemia or hyperglycemic crisis, random plasma glucose results greater than or equal to 200 mg/dL meet the criteria for diagnosis of diabetes. Reference: Standards of Medical Care in Diabetes 2016, [place] Diabetes Association. Diabetes Care. 2016.39(Suppl 1). Potassium [Moles/Vol] 4.9 mmol/L 3.7 - 5.1 mmol/L [facility] Protein [Mass/Vol] 7.9 g/dL 6.3 - 8.0 g/dL [facility] Sodium [Moles/Vol] 124 mmol/L Low 136 - 144 mmol/L [facility] Urea nitrogen [Mass/Vol] 17 mg/dL 9 - 24 mg/d L [facility] Comprehensive metabolic 2000 panelon 01-12-2024 Albumin [Mass/Vol] 4.5 g/dL Normal 3.9-4.[address] [facility] Comment on above: Order Comment: Speci men Type: BLOOD SPECIMENOrdering Facility: [facility] Address: [address] [place] [address] Performed By: #### 2 4323-8, 2532-0 ####[facility] CENTERLORENZORhonda [id number] [place] [address] [place] ALP [Catalytic activity/Vol] 277 U/L High 38-113 [facility] Comment on above: Order Comment: Speci men Type: BLOOD SPECIMENOrdering Facility: [facility] Address: [address] [place] [address] Performed By: #### 2 4323-8, 2532-0 ####[facility] CENTERLORENZOLIA [id number] [place] [address] [place] ALT [Catalytic activity/Vol] 41 U/L Normal 10-54 [facility] Comment on above: Order Comment: Speci men Type: BLOOD SPECIMENOrdering Facility: [facility] Address: [address] [place] [address] Performed By: #### 2 4323-8, 2532-0 ####[facility] [id number] [place] [address] [place] Anion gap [Moles/Vol] 14 mmol/L Normal 8-15 [facility] Comment on above: Order Comment: Speci men Type: BLOOD SPECIMENOrdering Facility: [facility] Address: [address] [place] [address] Performed By: #### 2 4328, 2531-0 ####[facility] MILLTOWNCLIA [id number] [place] [address] [place] AST [Catalytic activity/Vol] 55 U/L High 14-40 [facility] Comment on above: Order Comment: Speci men Type: BLOOD SPECIMENOrdering Facility: [facility] Address: [address] [place] [address] Performed By: #### 2 4328, 2531-0 ####[facility] MILLWNCLIA [id number] [place] [address] [place] Bilirubin [Mass/Vol] 0.7 mg/dL Normal 0.2-1.3 [facility] Comment on above: Order Comment: Speci men Type: BLOOD SPECIMENOrdering Facility: [facility] Address: [address] [place] [address] Performed By: #### 2 4328, 2531-0 ####[facility] [id number] [place] [address] [place] Calcium [Mass/Vol] 9.9 mg/dL Normal 8.5-10.[address] [facility] Comment on above: Order Comment: Speci men Type: BLOOD SPECIMENOrdering Facility: [facility] Address: [address] [place] [address] Performed By: #### 2 4328, 2531-0 ####[facility]ENTERWNCLIA [id number] [place] [address] [place] Chloride [Moles/Vol] 86 mmol/L Low 98-107 [facility] Comment on above: Order Comment: Speci men Type: BLOOD SPECIMENOrdering Facility: [facility] Address: [address] [place] [address] Performed By: #### 2 4323-8, 2531-0 ####[facility] MILLWNCLIA [id number] [place] [address] [place] CO2 [Moles/Vol] 24 mmol/L Normal 22-30 [facility] Comment on above: Order Comment: Speci men Type: BLOOD SPECIMENOrdering Facility: [facility] Address: [address] [place] [address] Performed By: #### 2 4323-8, 2531-0 ####[facility] [id number] [place] [address] [place] Creatinine [Mass/Vol] 0.79 mg/dL Normal 0.73-1.22 [facility] Comment on above: Order Comment: Speci men Type: BLOOD SPECIMENOrdering Facility: [facility] Address: [address] [place] [address] Performed By: #### 2 4323-8, 2531-0 ####[facility] [id number] [place] [address] [place] Creatinine and Glomerular filtration rate.predicted panel (S/P/Bld) 97 mL/min/1.73m??? Normal >=60 [facility] Comment on above: Order Comment: Henryi chidi Type: BLOOD SPECIMENOrdering Facility: [facility] Address: [address] [place] [address] Result Comment: Rekha mated Glomerular Filtration Rate (eGFR) is calculated using the 2020 CKD-EPI creatinine equation. This equation utilizes serum creatinine, sex, and age as parameters. The creatinine assay has traceable calibration to isotope dilution-mass spectrometry. Refer to KDIGO guidelines for clinical interpretation. In patients with unstable renal function, e.g. those with acute kidney injury, the eGFR may not accurately reflect actual GFR. Performed By: #### 2 4323-8, 2531-0 ####[facility]ENTERNCLIA [id number] [place] [address] [place] Glucose [Mass/Vol] 127 mg/dL High 74-[address] [facility] Comment on above: Order Comment: Fidelina murillo Type: BLOOD SPECIMENOrdering Facility: [facility] Address: [address] [place], [place] [address] Result Comment: The [place] Diabetes Association (ADA) provides guidance for cutoff values for fasting glucose and random glucose. The ADA defines fasting as no caloric intake for at least 8 hours. Fasting plasma glucose results between 100 to 125 mg/dL indicate increased risk for diabetes (prediabetes).Fasting plasma glucose results greater than or equal to 126 mg/dL meet the criteria for diagnosis of diabetes. In the absence of unequivocal hyperglycemia, results should be confirmed by repeat testing. In a patient with classic symptoms of hyperglycemia or hyperglycemic crisis, random plasma glucose results greater than or equal to 200 mg/dL meet the criteria for diagnosis of diabetes.Reference: Standards of Medical Care in Diabetes 2016, [place] [employer]. Diabetes Care. 2016.39(Suppl 1). Performed By: #### 2 4323-8, 2532-0 ####[facility] CENTERLORENZORhonda [id number] [place] [address] [place] Potassium [Moles/Vol] 4.9 mmol/L Normal 3.7-5.1 [facility] Comment on above: Order Comment: Fidelina murillo Type: BLOOD SPECIMENOrdering Facility: [facility] Address: [address] [place] [address] Performed By: #### 2 4323-8, 253-0 ####[facility] CENTERATIF [id number] [place] [address] [place] Protein [Mass/Vol] 7.9 g/dL Normal 6.3-8.[address] [facility] Comment on above: Order Comment: Fidelina murillo Type: BLOOD SPECIMENOrdering Facility: [facility] Address: [address] [place], [place] [address] Performed By: #### 2 4323-8, 2532-0 ####[facility] CENTERATIF [id number] [place] [address] [place] Sodium [Moles/Vol] 124 mmol/L Low 136-[address] [facility] Comment on above: Order Comment: Fidelina murillo Type: BLOOD SPECIMENOrdering Facility: [facility] Address: [address] [place] [address] Performed By: #### 2 4323-8, 2531-0 ####[facility] [id number] [place] [address] [place] Urea nitrogen [Mass/Vol] 17 mg/dL Normal 9-24 [facility] Comment on above: Order Comment: Fidelina murillo Type: BLOOD SPECIMENOrdering Facility: [facility] Address: [address] [place] [address] Performed By: #### 2 4323-8, 2531-0 ####[facility]ENTERNCMOUNT[facility] [id number] [place] [address] [place] HBV core Ab Ser Qlon 024 HBV core Ab Ql (S) Negative Normal Negative [facility] Comment on above: Order Comment: Fidelina murillo Type: BLOOD SPECIMENOrdering Facility: [facility] Address: [address] [place] [address] Result Comment: No e vidence of current or past infection with Hepatitis B virus. Should recent infection be suspected, repeat testing may be considered 3-4 weeks after this draw. Performed By: #### 5 195-3, 49608-3, 55949-1 ####[facility] LABCLIA [id number] [place] [address] [place] HBV surface Ab Ql (S)on 12-21 HBV surface Ab Qn (S) <8.00 Normal [facility] Comment on above: Order Comment: Henryi chidi Type: BLOOD SPECIMENOrdering Facility: [facility] Address: [address] [place] [address] Result Comment: <8 m IU/mL: No serological evidence of immunity to Hepatitis B Virus.>/= 8 to <12 mIU/mL: No serological evidence of immunity to Hepatitis B Virus.>/= 12 mIU/mL: Consistent with serological evidence of immunity to Hepatitis B Virus. Performed By: #### 5 195-3, 78673-5, 67993-4 ####[facility] LABCLIA [id number] [place] [address] [place] HBV surface Ab Ser Qlon 12-21 HBV surface Ab Ql (S) Negative Normal [facility] Comment on above: Order Comment: Speci men Type: BLOOD SPECIMENOrdering Facility: [facility] Address: [address] [place] [address] Result Comment: No s erological evidence of immunity to Hepatitis B Virus. Performed By: #### 5 195-3, 68284-7, 87600-7 ####[facility] LABCLIA [id number] [place] [address] [place] HBV surface Ag Ser Qlon 12-21 HBV surface Ag Ql (S) Negative Normal Negative [facility] Comment on above: Order Comment: Speci men Type: BLOOD SPECIMENOrdering Facility: [facility] Address: [address] [place] [address] Performed By: #### 5 195-3, 27015-5, 16159-6 ####[facility] LABCLIA [id number] [address] [place] HCV Ab Ser Qlon 01-12-2024 HCV Ab Ql (S) Negative Normal Negative [facility] Comment on above: Order Comment: Speci men Type: BLOOD SPECIMENOrdering Facility: [facility] Address: [address] [place] [address] Result Comment: The result suggests no evidence of active infection with Hepatitis C virus. Should recent infection be suspected, repeat testing may be considered 4-6 weeks after this draw. Performed By: #### 1 6128-1 ####[facility] LABCLIA [id number] [place] [address] [place] LACTATE DEHYDROGENASEon 12-21 LDH [Catalytic activity/Vol] 829 U/L High 135 - 225 U/L [facility] LDH SerPl-cCncon 01-12-2024 LDH [Catalytic activity/Vol] 829 U/L High 135-225 [facility] Comment on above: Order Comment: Speci men Type: BLOOD SPECIMENOrdering Facility: [facility] Address: [address] [place] [address] [place] [address] Performed By: #### 2 4323-8, 2532-0 ####[facility] STACEYOH[facility] [id number] [place] [id number] [place] [address] [place] MR Brain WO and W contrast I Von 01-12-2024 IMPRESSION: No intracranial metastasis. Physician Scientist: ANGEL Transcribe Date/Time: Jan 12 2024 4:20P Dictated by : PAUL AUSTIN MD This examination was interpreted and the report reviewed and electronically signed by: PAUL AUSTIN MD on Jan 12 2024 4:29PM [facility] DIVISION OF RADIOLOGY * * *Final Report* * * DATE OF EXAM: Jan 12 2024 4:01PM [facility] 0295 - MRI BRAIN WO/W IVCON / PROCEDURE REASON: multiple diagnoses * * * * Physician Interpretation * * * * EXAMINATION: MRI BRAIN WO/W IVCON CLINICAL HISTORY: Evaluation for metastasis. TECHNIQUE: Routine brain MRI protocol without and with contrast including diffusion images. MQ: MRBWOW_2 Contrast: 20 mL Dotarem IV COMPARISON: None. RESULT: Acute Change: There is no evidence of restricted diffusion to suggest an acute infarct. Hemorrhage: No evidence of prior parenchymal hemorrhage on the gradient echo images. Mass Lesion/ Mass Effect: No evidence of an intracranial mass or extra-axial fluid collection. No abnormal parenchymal or leptomeningeal enhancement is noted following contrast administration. No significant mass effect. Chronic Change: Scattered patchy areas of increased T2 and FLAIR signal are present in the supratentorial white matter which is a nonspecific finding but likely represents mild chronic microvascular ischemia. Parenchyma: There is mild generalized parenchymal volume loss. The brain parenchyma is otherwise within normal limits of signal intensity and morphology. Ventricles: Ventriculomegaly corresponds to the degree of parenchymal volume loss. Skull Base: Hypothalamic and pituitary region are grossly normal. Craniocervical junction is normal. No significant marrow replacement process. Vasculature: Major intracranial arterial structures, and dural venous sinuses show typical flow void, suggesting patency by spin echo criteria. Other: The visualized paranasal sinuses and mastoid air cells are clear. There are bilateral lens implants. The orbits and extracranial soft tissues are otherwise unremarkable. DIVISION OF RADIOLOGY Provider, [facility] - 01/12/2024 * * *Final Report* * * DATE OF EXAM: Jan 12 2024 4:01PM [facility] 0295 - MRI BRAIN WO/W IVCON / PROCEDURE REASON: multiple diagnoses * * * * Physician Interpretation * * * * EXAMINATION: MRI BRAIN WO/W IVCON CLINICAL HISTORY: Evaluation for metastasis. TECHNIQUE: Routine brain MRI protocol without and with contrast including diffusion images. MQ: MRBWOW_2 Contrast: 20 mL Dotarem IV COMPARISON: None. RESULT: Acute Change: There is no evidence of restricted diffusion to suggest an acute infarct. Hemorrhage: No evidence of prior parenchymal hemorrhage on the gradient echo images. Mass Lesion/ Mass Effect: No evidence of an intracranial mass or extra-axial fluid collection. No abnormal parenchymal or leptomeningeal enhancement is noted following contrast administration. No significant mass effect. Chronic Change: Scattered patchy areas of increased T2 and FLAIR signal are present in the supratentorial white matter which is a nonspecific finding but likely represents mild chronic microvascular ischemia. Parenchyma: There is mild generalized parenchymal volume loss. The brain parenchyma is otherwise within normal limits of signal intensity and morphology. Ventricles: Ventriculomegaly corresponds to the degree of parenchymal volume loss. Skull Base: Hypothalamic and pituitary region are grossly normal. Craniocervical junction is normal. No significant marrow replacement process. Vasculature: Major intracranial arterial structures, and dural venous sinuses show typical flow void, suggesting patency by spin echo criteria. Other: The visualized paranasal sinuses and mastoid air cells are clear. There are bilateral lens implants. The orbits and extracranial soft tissues are otherwise unremarkable. IMPRESSION IMPRESSION: No intracranial metastasis. Physician Scientist: [facility] Transcribe Date/Time: Jan 12 2024 4:20P Dictated by : PAUL AUSTIN MD This examination was interpreted and the report reviewed and electronically signed by: PAUL AUSTIN MD on Jan 12 2024 4:29PM [facility] Radiology Study observation (narrative) [facility] MR Brain WO and W contrast I VOrdered By: Ccf Provider on 01-12-2024 [facility] MRI BRAIN WO/W IVCONon 01-11 MRI BRAIN WO/W IVCON Normal [facility] No Panel Informationon 01-11 Interpretation and review of laboratory results Abnormal [facility] CNPNon 01-11-2024 CNPN Normal [facility] CT BIOPSY LIVERon 01-01-2024 CT BIOPSY LIVER * * *Final Report* * * DATE OF EXAM: Jan 01 2024 10:50AM [facility] 2017 - CT BIOPSY LIVER / PROCEDURE REASON: Dx: Liver lesion [K76.9 (ICD-10-CM)]; Abnormal PET scan of liver * * * * Physician Interpretation * * * * CT BIOPSY LIVER INDICATION: Dx: Liver lesion [K76.9 (ICD-10-CM)]; Abnormal PET scan of liver CT Radiation dose: Integrated Dose-length product (DLP) for this visit = 1426 mGy*cm. CT Dose Reduction Employed: Automated exposure control(AEC) and iterative recon PROCEDURE: Informed consent was obtained for this procedure. Details of informed consent can be found under the consent tab. Using aseptic technique, 10 ml of 1% lidocaine for local anesthesia and CT guidance, a 17-gauge guide needle was entered into a lesion in the anterior right hepatic lobe from an anterior approach. Subsequently, 2, 18-gauge core biopsies were obtained in a coaxial manner. The patient tolerated the procedure well and left the department in stable condition. No complications were encountered. IMPRESSION: Successful CT-guided core liver lesion biopsy. Physician Scientist: [facility] Transcribe Date/Time: Jan 01 2024 11:46A Dictated by : MASON CUELLAR MD This examination was interpreted and the report reviewed and electronically signed by: MASON CUELLAR MD on Jan 01 2024 11:47AM EST [id number] [facility] SURGICAL PATHOLOGYon 024 CASE REPORT [facility] Comment on above: Order Comment: Speci men Type: TISSUE SPECIMEN [facility] Address: [address] [place] [address] Result Comment: Surg ica Pathology Report Case: [id number] Authorizing Provider: AlmazMason lopez MD, MD Collected: 01/01/2024 10:28 AM Ordering Location: [facility] Received: 01/01/2024 11:09 AM Pathologist: Stephanie Sharpe MD Specimen: Liver, Mass, Biopsy Performed By: #### S #### [facility] CLIA [id number] [address] [place] [address] CLINICAL HISTORY Lung nodule with multiple liver lesions Normal [facility] Comment on above: Order Comment: Speci men Type: TISSUE SPECIMEN [facility] Address: [address] [place] [address] Performed By: #### S #### [facility] CLIA [id number] [address] [place] [address] DIAGNOSIS COMMENT Normal [facility] Comment on above: Order Comment: Speci men Type: TISSUE SPECIMEN [facility] Address: [address] [place] [address] Result Comment: The neoplasm comprises sheets of medium-sized round to oval cells with minimal cytoplasm, no distinct nucleoli, and nuclear smudging. There is increased mitotic activity and single-cell necrosis. The Ki 67 proliferation index is over 90%. Positive immunoreactivity for cytokeratin AE1/AE3, synaptophysin, and chromogranin supports the diagnosis of small cell carcinoma. This likely represents a metastasis from a lung primary. The background liver parenchyma shows macrovesicular steatosis involving at least 25% of the parenchymal volume. Laboratory Developed Test (LDT) Disclaimer: Performance characteristics of immunohistochemical, immunofluorescent and chromogenic in-situ hybridization tests have been determined by the performing laboratory within [facility]???s Adam Joaquim [facility] Pathology and Laboratory Medicine Department ([facility], [facility], [facility], [facility], [facility], [facility], or [facility]) in a manner consistent with CLIA requirements. One or more of these tests have not been cleared or approved by the FDA. [facility] is regulated under CLIA as qualified to perform high-complexity testing. These tests are used for clinical purposes. They should not be regarded as investigational or for research. Positive and negative controls stain appropriately. Performed By: #### S #### [facility] CLIA [id number] [address] [place] [address] [place] OF [place] FINAL DIAGNOSIS Normal [facility] Comment on above: Order Comment: Speci men Type: TISSUE SPECIMEN Ordering Facility: [facility] Address: [address] [place] [address] Result Comment: Sirisha east, mass, biopsy: - Small cell carcinoma, metastatic. See comment. AEB/mm/03/05/2024 Performed By: #### S #### [facility] CLIA [id number] [address] [place] [address] OF [place] FINAL PERFORMING LAB Normal [facility] Comment on above: Order Comment: Speci men Type: TISSUE SPECIMEN Ordering Facility: [facility] Address: [address] [place] [address] Result Comment: Diag nostic interpretation performed at [facility], [address] [place] [address] CLIA# [id number] Wellness Coach: Kp Sims M.D. Performed By: #### S #### [facility] CLIA [id number] [address] [place] [address] [place] GROSS DESCRIPTION [facility] Comment on above: Order Comment: Speci men Type: TISSUE SPECIMEN Ordering Facility: [facility] Address: [address] [place] [address] Result Comment: Rhonda. Jerel ivgeorgina, Mass, Biopsy Received in formalin are multiple segments of cylindrical tissue aggregating to 4.3 x 0.1 x 0.1 cm, garcia-brown and of a soft and friable consistency. Totally submitted in one cassette. BC January 01, 2024 4:20 PM Gross examination performed at [facility], [address] [place] [address] Performed By: #### S #### [facility] CLIA [id number] [address] [place] [address] [place] CNPNon 08-06-[facility] ABDIRZIAK COLINDRES ([id number]) 1955 M Date Time Provider Department 12/26/23 VIKTORIYA BELLA During your visit today, we recorded the following information about you: Viktoriya Bella RN 12/26/2023 3:04 PM Signed Allergies As of Date: 12/26/2023 (No Known Allergies) Date Reviewed: 12/18/2023 Reviewed by: Ariana Lee LPN - Fully Assessed Reason for Visit: Radiology Pre Procedure Instructions [1506] Prescriptions as of 12/26/2023 - varenicline (CHANTIX) 1 mg tablet Take 1 tablet by mouth two times a day. - Ketoconazole 1 % sham Apply to affected area every other day. - cyclobenzaprine (FLEXERIL) 10 mg tablet Take 1 tablet by mouth three times a day as needed for muscle spasm. - amLODIPine (NORVASC) 5 mg tablet Take 1 tablet by mouth once daily. - simvastatin (ZOCOR) 40 mg tablet Take 1 tablet by mouth daily at bedtime. - sertraline (ZOLOFT) 100 mg tablet Take 1 tablet by mouth once daily. - albuterol HFA (VENTOLIN HFA) 90 mcg/actuation inhaler Inhale 2 Puffs as instructed every 4 hours as needed for wheezing/shortness of breath. - labetalol (TRANDATE) 200 mg tablet Take 1 tablet by mouth two times a day. - buPROPion (WELLBUTRIN) 75 mg tablet Take 1 tablet by mouth two times a day. - varenicline (CHANTIX) 1 mg tablet Take 0.5 tablets by mouth once daily for 3 days, THEN 0.5 tablets two times a day for 4 days, THEN 1 tablet two times a day for 23 days. - naltrexone 50 mg tablet Take 1 tablet by mouth once daily. - metFORMIN (GLUCOPHAGE) 1,000 mg tablet Take 1 tablet by mouth daily with breakfast. - beclomethasone (QVAR REDIHALER) 80 mcg/actuation inhaler Inhale 2 Puffs as instructed twice daily. - CPAP Initiate Auto PAP @ 5-20 cm of water with humidification. Mask (per patient preference) optional chin strap (if indicated) , filters, tubing, humidifier and lifetime supplies. - Blood Pressure Test Kit-Medium kit 1 Kit once daily. - Omeprazole Magnesium 20 mg tablet Take 20 mg by mouth once daily. Problem List As Of Date 12/26/2023 Noted Resolved Major depressive disorder, recurrent episode (H*04/07/2005 Backache [M54.9] 04/07/2005 PAIN JOINT, KNEE [M25.569] 01/30/2006 PAIN JOINT, ANKLE [M25.579] 01/30/2006 Elevated blood pressure reading without diagnos*05/01/2006 12/17/2010 Hypertrophy of prostate without urinary obstruc*12/15/2006 12/27/2017 Leukocytosis [D72.829] 12/15/2006 HYDROCELE NEC [N43.2] 01/22/2008 SEBACEOUS CYST [L72.3] 01/22/2008 PAIN GROIN [R10.9] 01/22/2008 CHEST PAIN NOS [R07.9] 07/15/2008 TOBACCO USE DISORDER [F17.200] 07/15/2008 Medial epicondylitis [M77.00] 02/24/2010 09/15/2010 Hearing loss in left ear [H91.92] 09/15/2010 Overweight [E66.3] 09/15/2010 Hypertension, essential [I10] 12/15/2016 Prediabetes [R73.03] 10/24/2017 Hyperlipidemia, mixed [E78.2] 10/24/2017 GERD without esophagitis [K21.9] 10/24/2017 DDD (degenerative disc disease), lumbar [M51.36]01/04/2020 Chronic midline low back pain without sciatica *01/07/2020 Alcohol dependence with uncomplicated intoxicat*09/24/2021 Positive colorectal cancer screening using [place]*05/19/2023 Coronary artery calcification seen on CAT scan *09/29/2023 Encounter Status:Closed by VIKTORIYA BELLA on 12/26/23 Normal [facility] GLUCOSE, BLOOD (POC)on 12-04 Glucose [Mass/Vol] 126 mg/dL Abnormal 74 - 99 mg/dL [facility] Comment on above: Location:[facility], [address] [place] [address], [address] The Accu-Chek Inform II glucose meter has not been approved for testing on patients receiving intensive medical intervention or therapy and results from this point of care glucose test should not be used for patient management decisions in these cases. Inaccurate results may also occur from other interfering factors, such as N-acetylcysteine (blood concentrations of greater than 5mg/dL), galactose, extremes of hematocrit (<10 or >65), or high doses of ascorbic acid (vitamin C) greater than 3mg/dL. Consider alternate testing mechanisms (e.g. core lab, blood gas instrument) in the above situations. Interpretation and review of laboratory results Abnormal [facility] NM Heart Perfusion W stress and W radionuclide Janet 11-13-2023 * * *Final Report* * * DATE OF EXAM: Nov 13 2023 9:30AM [address] CARDIAC PERF STRESS/PHARM / PROCEDURE REASON: multiple diagnoses * * * * Physician Interpretation * * * * Stress Gift Consultant Report: [facility] Date of service: 11/13/2023 8:00:31 AM Supervising physician: Ayush Bentley MD PATIENT: Name: MR. ABDIRIZAK COLINDRES Age: 68 years Gender: M The supervising physician was in the department and immediately available. * * * Final * * * ------ PATIENT: Name: MR. ABDIRIZAK COLINDRES Age: 68 years Gender: M CONCLUSIONS: 1. SPECT Perfusion Study: Normal. 2. There is no scintigraphic evidence for inducible ischemia. 3. No evidence of scarred myocardium. 4. Left ventricle is normal in size. The left ventricle systolic function is normal. 5. Right ventricle is normal in size. The right ventricle systolic function is normal. 6. This is a low risk scan. Gated Stress FBP LVEF % 83 Prior Study Comparison Prior nuclear cardiology exam was performed on 07/23/08 not available. Nuclear Med Report:1-Day Gated SPECT Myocardial Perfusion with Regadenoson Stress: Myocardial perfusion imaging was performed at rest 30 minutes following the IV injection of the radiotracer. The patient received 0.4 mg of regadenoson, via rapid IV push, immediately followed by radiotracer IV. Gated post stress tomographic imaging was performed 30 to 60 minutes later. See administered radiotracer and doses below. [facility] Date of service: 11/13/2023 8:00:31 AM Ordering Physician: TYRA MARTELL. Requesting Physician: TYRA MARTELL Indication: Assessment for known CAD and CP - ECG uniterpretable OR unable to exercise Interpreting physician: Antonio Ayers MD Height: 175.26 cm BSA: 2.53 m Weight: 132.00 kg BMI: 43.0 kg/m Imaging Protocol Limitation Reason Diaphragmatic attenuation. Exam Type: Rest Stress Radiopharm: Tc-99m Tetrofosmin Tc-99m Tetrofosmin Dosage(mCi): 16.1 50.6 Stress Agent: Regadenoson 0.4mg Supply provided from [facility] Resting Blood Press: 146/82 mmHg Image Quality The overall study imaging quality was deemed to be good. The following technical issues were noted: Diaphragmatic attenuation. FINDINGS: Left Ventricle Wall Motion: Stress IR:3D - All segments are normal. Rest IR:3D - Gated Stress FBP - Reversibility - Stress IR:3D Stress IR:3D Gated Stress FBP LVEF: 83 % ED Volume: 103 ml ES Volume: 18 ml TID: 0.93 Perfusion Findings Stress IR:3D - Summed Score=0 All segments demonstrate normal perfusion. Rest IR:3D - Summed Score=0 All segments demonstrate normal perfusion. Stress IR:3D Rest IR:3D Summed Score=0 Summed Score=0 LEFT VENTRICLE The left ventricle is normal in size. Left ventricular systolic function is normal. Right Ventricle The right ventricle is normal in size. Right ventricle systolic function is normal. Stress Test Findings: There is no scintigraphic evidence for inducible ischemia. There is no evidence of scarring. * * * Final * * * ------ Stress ECG Report: [facility] Date of service: 11/13/2023 8:00:31 AM Ordering physician: TYRA MARTELL software licensing specialist: Iris Rawls RN Interpreting physician: Ayush Bentley MD Patient name: MR. ABDIRIZAK COLNIDRES Age: 68 years Gender: M Height: 175.26 cm BSA: 2.53 m Weight: 132.00 kg BMI: 43.0 kg/m Indication: Dyspnea on exertion, Encounter for screening for cardiovascular disorders and Chest pressure / Chest tightness Stress ECG Conclusion: Conclusion: Normal Prior exam comparison: No prior CC exam Stress ECG Summary: The patient's resting heart rate was 90 bpm and blood pressure was 146/82 mmHg. The test was terminated due to end of protocol. No symptoms provoked during stress. The maximum heart rate was 100 bpm, which is 66% of the predicted heart rate for age. Peak blood pressure was 144/80 mmHg. The double product achieved was [address]. Medications: Last Used AMLODIPINE 1 Days LABETALOL 1 Days Resting ECG: Normal Sinus Rhythm Symptoms at rest: No symptoms Pharamcologic Protocol: Regadenoson Stress Exercis (more content not included)... DIVISION OF RADIOLOGY Provider, [facility] - 11/13/2023 * * *Final Report* * * DATE OF EXAM: Nov 13 2023 9:30AM [facility]ARAS 0006 - NM CARDIAC PERF STRESS/PHARM / PROCEDURE REASON: multiple diagnoses * * * * Physician Interpretation * * * * Stress Gift Consultant Report: [facility] Date of service: 11/13/2023 8:00:31 AM Supervising physician: Ayush Bentley MD PATIENT: Name: MR. ABDIRIZAK COLINDRES Age: 68 years Gender: M The supervising physician was in the department and immediately available. * * * Final * * * ------ PATIENT: Name: MR. ABDIRIZAK COLINDRES Age: 68 years Gender: M CONCLUSIONS: 1. SPECT Perfusion Study: Normal. 2. There is no scintigraphic evidence for inducible ischemia. 3. No evidence of scarred myocardium. 4. Left ventricle is normal in size. The left ventricle systolic function is normal. 5. Right ventricle is normal in size. The right ventricle systolic function is normal. 6. This is a low risk scan. Gated Stress FBP LVEF % 83 Prior Study Comparison Prior nuclear cardiology exam was performed on 07/23/08 not available. Nuclear Med Report:1-Day Gated SPECT Myocardial Perfusion with Regadenoson Stress: Myocardial perfusion imaging was performed at rest 30 minutes following the IV injection of the radiotracer. The patient received 0.4 mg of regadenoson, via rapid IV push, immediately followed by radiotracer IV. Gated post stress tomographic imaging was performed 30 to 60 minutes later. See administered radiotracer and doses below. [facility] Date of service: 11/13/2023 8:00:31 AM Ordering Physician: TYRA MARTELL. Requesting Physician: TYRA MARTELL Indication: Assessment for known CAD and CP - ECG uniterpretable OR unable to exercise Interpreting physician: Antonio Ayers MD Height: 175.26 cm BSA: 2.53 m Weight: 132.00 kg BMI: 43.0 kg/m Imaging Protocol Limitation Reason Diaphragmatic attenuation. Exam Type: Rest Stress Radiopharm: Tc-99m Tetrofosmin Tc-99m Tetrofosmin Dosage(mCi): 16.1 50.6 Stress Agent: Regadenoson 0.4mg Supply provided from [facility] Resting Blood Press: 146/82 mmHg Image Quality The overall study imaging quality was deemed to be good. The following technical issues were noted: Diaphragmatic attenuation. FINDINGS: Left Ventricle Wall Motion: Stress IR:3D - All segments are normal. Rest IR:3D - Gated Stress FBP - Reversibility - Stress IR:3D Stress IR:3D Gated Stress FBP LVEF: 83 % ED Volume: 103 ml ES Volume: 18 ml TID: 0.93 Perfusion Findings Stress IR:3D - Summed Score=0 All segments demonstrate normal perfusion. Rest IR:3D - Summed Score=0 All segments demonstrate normal perfusion. Stress IR:3D Rest IR:3D Summed Score=0 Summed Score=0 LEFT VENTRICLE The left ventricle is normal in size. Left ventricular systolic function is normal. Right Ventricle The right ventricle is normal in size. Right ventricle systolic function is normal. Stress Test Findings: There is no scintigraphic evidence for inducible ischemia. There is no evidence of scarring. * * * Final * * * ------ Stress ECG Report: [facility] Date of service: 11/13/2023 8:00:31 AM Ordering physician: TYRA MARTELL software licensing specialist: Iris Rawls RN Interpreting physician: Ayush Bentley MD Patient name: MR. ABDIRIZAK COLINDRES Age: 68 years Gender: M Height: 175.26 cm BSA: 2.53 m Weight: 132.00 kg BMI: 43.0 kg/m Indication: Dyspnea on exertion, Encounter for screening for cardiovascular disorders and Chest pressure / Chest tightness Stress ECG Conclusion: Conclusion: Normal Prior exam comparison: No prior CC exam Stress ECG Summary: The patient's resting heart rate was 90 bpm and blood pressure was 146/82 mmHg. The test was terminated due to end of protocol. No symptoms provoked during stress. The maximum heart rate was 100 bpm, which is 66% of the predicted heart rate for age. Peak blood pressure was 144/80 mmHg. The double product achieved was [id number]. Medications: Last Used AMLODIPINE 1 Days LABETALOL 1 Days Resting ECG: Normal Sinus Rhythm Symptoms at rest: No symptoms Pharamcologic Protocol: Regadenoson Stress Exercise Table: +-----+---+---+---+ Stage HR SYS KRISTEL +-----+---+---+---+ 1 104 +-----+---+---+---+ 2 102 134 76 +-----+---+---+---+ 3 102 +-----+---+---+---+ 4 100 144 80 +-----+---+---+- (more content not included)... [facility] Radiology Study observation (narrative) [facility] NM Heart Perfusion W stress and W radionuclide IVOrdered By: [facility] Provider on 11-13-2023 [facility] CBC W Auto Differential pane l (Bld)on 08-29-2023 Basophils (Bld) [#/Vol] 0.05 10*3/uL <0.11 k/uL [facility] Basophils/100 WBC (Bld) 0.5 % [facility] Differential cell count method Nom (Bld) Auto [facility] Eosinophils (Bld) [#/Vol] 0.28 10*3/uL <0.46 k/uL [facility] Eosinophils/100 WBC (Bld) 2.9 % [facility] Erythrocyte distribution width (RBC) [Ratio] 14.4 % 11.5 - 15.0 % [facility] Hematocrit (Bld) [Volume fraction] 43.2 % 39.0 - 51.0 % [facility] Hemoglobin (Bld) [Mass/Vol] 14.1 g/dL 13.0 - 17.0 g/dL [facility] Immature granulocytes (Bld) [#/Vol] 0.10 10*3/uL High <0.10 k/uL [facility] Immature granulocytes/100 WBC (Bld) 1.0 % [facility] Lymphocytes (Bld) [#/Vol] 1.75 10*3/uL 1.00 - 4.00 k/uL [facility] Lymphocytes/100 WBC (Bld) 17.8 % [facility] MCH (RBC) [Entitic mass] 32.3 pg 26. 0 - 34.0 pg [facility] MCHC (RBC) [Mass/Vol] 32.6 g/dL 30.5 - 36.0 g/dL [facility] MCV (RBC) [Entitic vol] 98.9 fL 80.0 - 100.0 fL [facility] Monocytes (Bld) [#/Vol] 0.87 10*3/uL High <0.87 k/uL [facility] Monocytes/100 WBC (Bld) 8.9 % [facility] Neutrophils (Bld) [#/Vol] 6.77 10*3/uL 1.45 - 7.50 k/uL [facility] Neutrophils/100 WBC (Bld) 68.9 % [facility] Nucleated RBC (Bld) [#/Vol] <0.01 k/uL [facility] Nucleated RBC/100 WBC (Bld) [Ratio] 0.0 /100 WBC [facility] Platelet mean volume (Bld) [Entitic vol] 11.5 fL 9.0 - 12.7 fL [facility] Platelets (Bld) [#/Vol] 268 10*3/uL 150 - 400 k/uL [facility] RBC (Bld) [#/Vol] 4.37 10*6/uL 4.20 - 6.0 0 m/uL [facility] WBC (Bld) [#/Vol] 9.82 10*3/uL 3.70 - 11. 00 k/uL [facility] Comprehensive metabolic 2000 panelon 08-29-2023 Albumin [Mass/Vol] 4.2 g/dL 3.9 - 4.9 g/dL [facility] ALP [Catalytic activity/Vol] 122 U/L High 38 - 113 U/L [facility] ALT [Catalytic activity/Vol] 30 U/L 10 - 54 U/L [facility] Anion gap [Moles/Vol] 12 mmol/L 9 - 18 mmol/L [facility] AST [Catalytic activity/Vol] 30 U/L 14 - 40 U/L [facility] Bilirubin [Mass/Vol] 0.5 mg/dL 0.2 - 1 .3 mg/dL [facility] Calcium [Mass/Vol] 9.7 mg/dL 8.5 - 10. 2 mg/dL [facility] Chloride [Moles/Vol] 98 mmol/L 97 - 10 5 mmol/L [facility] CO2 [Moles/Vol] 27 mmol/L 22 - 30 mmol/L [facility] Creatinine [Mass/Vol] 0.90 mg/dL 0.73 - 1.22 mg/dL [facility] Estimated Glomerular Filtration Rate 94 mL/min/1.73m >=60 mL/min/1.73m [facility] Glucose [Mass/Vol] 120 mg/dL High 74 - 99 mg/dL [facility] Potassium [Moles/Vol] 5.0 mmol/L 3.7 - 5.1 mmol/L [facility] Protein [Mass/Vol] 7.1 g/dL 6.3 - 8.0 g/dL [facility] Sodium [Moles/Vol] 137 mmol/L 136 - 144 mmol/L [facility] Urea nitrogen [Mass/Vol] 17 mg/dL 9 - 24 mg/d L [facility] HbA1c (Bld)on 08-29-2023 Average glucose Estimated from glycated hemoglobin (Bld) [Mass/Vol] 140 mg/dL [facility] HbA1c (Bld) [Mass fraction] 6.5 % High 4.3 - 5.6 % [facility] LIPID PANEL, NONFASTINGon Cholesterol [Mass/Vol] 198 mg/dL <200 mg/dL [facility] HDL Cholesterol, Nonfasting 49 mg/dL >39 mg/dL [facility] LDL Cholesterol, Nonfasting 121 mg/dL High <100 mg/dL [facility] LDL/HDL Ratio, Nonfasting 2.47 mg/dL <2.54 mg/dL [facility] Non HDL Cholesterol, Nonfasting 149 mg/dL High <130 mg/dL [facility] Total Chol/HDL Ratio, Nonfasting 4.04 mg/dL <5.10 mg/dL [facility] Triglycerides, Nonfasting 138 mg/dL <150 mg/dL [facility] VLDL Cholesterol, Nonfasting 28 mg/dL <30 mg/dL [facility] PSA/PROSTSPECAG SCRNon 08-28 Prostate specific Ag [Mass/Vol] 0.41 ng/mL <2.60 ng/mL [facility] TSH BLDon 08-29-2023 TSH Qn 2.860 m[IU]/L 0.270 - 4.200 mIU/L [facility] CNPNon 05-24-2023 CNPN Telephone ([facility] SUJEYABDIRIZAK Ortiz ([id number]) 1955 M Date Time Provider Department 05/24/23 ANITRA MCDUFFIE [facility] During your visit today, we recorded the following information about you: Anitra Mcduffie APRN.CNP 05/24/2023 1:38 PM Signed Left message for patient to call back to discuss following results: LDCT Lung Screen Results LungRADS category: 4BS Incidentals: Moderate LAD CAC Recommendations: Case reviewed with physician champion Dr. Cullen-[address] Airway clearance (mucinex and acapella device) PFT and pulmonary referral Anitra Mcduffie APRN.CNP May 24, 2023 1:34 PM Anitra Mcduffie APRN.CNP 05/26/2023 1:44 PM Signed Pt notified of results and recommendations. For the last 3-4 weeks he was feeling very congested and had a cold. He has a lot of difficulty getting the mucus cleared out, but feels it is better now. He doesn't normally have any trouble with his breathing. He agrees to try mucinex and get a mucus clearing device. Consult to cardiology and follow up with PCP. Emergency precautions given. Pt denies any chest pain, and tolerates activity well. Plan to reevaluate for need for PFT and pulm consult at 2 mos follow up. Allergies As of Date: 05/24/2023 (No Known Allergies) Date Reviewed: 05/19/2023 Reviewed by: Patty Haas, JEIMY - Fully Assessed Reason for Visit: Results [95] Primary Visit Diagnosis:Lung nodules [R91.8] Other Visit Diagnosis:Coronary artery calcification seen on CAT scan [I25.10] Order(s):CT LUNG FOLLOWUP WO IVCCRISTIAN [3167332] Order #: [id number] FUTURE CONSULT TO CARDIOLOGY [900] Order #: [id number]: 1 FUTURE Prescriptions as of 05/26/2023 - metFORMIN (GLUCOPHAGE) 1,000 mg tablet Take 1 tablet by mouth daily with breakfast. - cyclobenzaprine (FLEXERIL) 10 mg tablet Take 1 tablet by mouth three times a day as needed for muscle spasm. - amLODIPine (NORVASC) 5 mg tablet Take 1 tablet by mouth once daily. - sertraline (ZOLOFT) 100 mg tablet Take 1 tablet by mouth once daily. - labetalol (TRANDATE) 200 mg tablet Take 1 tablet by mouth two times a day. - albuterol HFA (VENTOLIN HFA) 90 mcg/actuation inhaler Inhale 2 Puffs as instructed every 4 hours as needed for wheezing/shortness of breath. - buPROPion (WELLBUTRIN) 75 mg tablet Take 1 tablet by mouth two times a day. - naltrexone 50 mg tablet Take 1 tablet by mouth every afternoon. - mometasone-formoterol (DULERA) 200-5 mcg/actuation inhaler Inhale 1 Puff as instructed twice daily. - simvastatin (ZOCOR) 20 mg tablet Take 1 tablet by mouth daily at bedtime. - salmeterol (SEREVENT DISKUS) 50 mcg/dose diskus inhaler Inhale 1 Puff as instructed twice daily. - beclomethasone (QVAR REDIHALER) 80 mcg/actuation inhaler Inhale 2 Puffs as instructed twice daily. - CPAP Initiate Auto PAP @ 5-20 cm of water with humidification. Mask (per patient preference) optional chin strap (if indicated) , filters, tubing, humidifier and lifetime supplies. - Blood Pressure Test Kit-Medium kit 1 Kit once daily. - Omeprazole Magnesium 20 mg tablet Take 20 mg by mouth once daily. Problem List As Of Date 05/24/2023 Noted Resolved Major depressive disorder, recurrent episode (H*04/07/2005 Backache [M54.9] 04/07/2005 PAIN JOINT, KNEE [M25.569] 01/30/2006 PAIN JOINT, ANKLE [M25.579] 01/30/2006 Elevated blood pressure reading without diagnos*05/01/2006 12/17/2010 Hypertrophy of prostate without urinary obstruc*12/15/2006 12/27/2017 Leukocytosis [D72.829] 12/15/2006 HYDROCELE NEC [N43.2] 01/22/2008 SEBACEOUS CYST [L72.3] 01/22/2008 PAIN GROIN [R10.9] 01/22/2008 CHEST PAIN NOS [R07.9] 07/15/2008 TOBACCO USE DISORDER [F17.200] 07/15/2008 Medial epicondylitis [M77.00] 02/24/2010 09/15/2010 Hearing loss in left ear [H91.92] 09/15/2010 Overweight [E66.3] 09/15/2010 Hypertension, essential [I10] 12/15/2016 Prediabetes [R73.03] 10/24/2017 Hyperlipidemia, mixed [E78.2] 10/24/2017 GERD without esophagitis [K21.9] 10/24/2017 DDD (degenerative disc disease), lumbar [M51.36]01/04/2020 Chronic midline low back pain without sciatica *01/07/2020 Alcohol dependence with uncomplicated intoxicat*09/24/2021 Positive colorectal cancer screening using [place]*05/19/2023 Encounter Status:Closed by ANITRA MCDUFFIE on 05/26/23 [facility] XR Chest PA and Lateralon IMPRESSION: No acute radiographic abnormality. Physician Scientist: ANGEL Transcribe Date/Time: Sep 27 2021 11:30A Dictated by : PATTY HELMS MD This examination was interpreted and the report reviewed and electronically signed by: PATTY HELMS MD on Sep 27 2021 11:33AM EST ZZZ_DO_NOT_U SE_DIVISION OF RADIOLOGY * * *Final Report* * * DATE OF EXAM: Sep 27 2021 10:12AM WOX [id number] - XR CHEST 2V FRONTAL/LAT / PROCEDURE REASON: SHAH (dyspnea on exertion) * * * * Physician Interpretation * * * * EXAMINATION: CHEST RADIOGRAPH (2 VIEW FRONTAL & LATERAL) CLINICAL HISTORY: SHAH (dyspnea on exertion) MQ: XC2_6 EXAM DATE/TIME: 09/27/2021 10:12 AM COMPARISON: Chest x-ray 10/31/2017 RESULT: Lines, tubes, and devices: None. Lungs and pleura: No consolidation. No lung mass. No pleural effusion. No pneumothorax. Cardiomediastinal silhouette: Normal cardiomediastinal silhouette. Bones and soft tissues: Unremarkable. ZZZ_DO_NOT_U _DIVISION OF RADIOLOGY Provider, [facility] Cedrick [facility] - 09/27/2021 * * *Final Report* * * DATE OF EXAM: Sep 27 2021 10:12AM WOX [id number] - XR CHEST 2V FRONTAL/LAT / PROCEDURE REASON: SHAH (dyspnea on exertion) * * * * Physician Interpretation * * * * EXAMINATION: CHEST RADIOGRAPH (2 VIEW FRONTAL & LATERAL) CLINICAL HISTORY: SHAH (dyspnea on exertion) MQ: XC2_6 EXAM DATE/TIME: 09/27/2021 10:12 AM COMPARISON: Chest x-ray 10/31/2017 RESULT: Lines, tubes, and devices: None. Lungs and pleura: No consolidation. No lung mass. No pleural effusion. No pneumothorax. Cardiomediastinal silhouette: Normal cardiomediastinal silhouette. Bones and soft tissues: Unremarkable. IMPRESSION IMPRESSION: No acute radiographic abnormality. Physician Scientist: [facility] Transcribe Date/Time: Sep 27 2021 11:30A Dictated by : PATTY HELMS MD This examination was interpreted and the report reviewed and electronically signed by: PATTY HELMS MD on Sep 27 2021 11:33AM [facility] Radiology Study observation (narrative) [facility] XR Chest PA and LateralOrder ed By: [facility] Provider on 09-27-2021 [facility] XR Finger - left AP and Late ral and obliqueon 09-03-2020 IMPRESSION: Mild degenerative changes. Physician Scientist: PSC[facility] Transcribe Date/Time: Sep 03 2020 4:16P Dictated by : JESUS GREENE MD This examination was interpreted and the report reviewed and electronically signed by: JESUS GREENE MD on Sep 03 2020 4:17PM [facility] DIVISION OF RADIOLOGY * * *Final Report* * * DATE OF EXAM: Sep 03 2020 10:07AM WOX [id number] - XR DIGIT 3V FRONTAL/LAT/OBL LT / PROCEDURE REASON: Thumb weakness * * * * Physician Interpretation * * * * CLINICAL INDICATION: Thumb weakness TECHNIQUE: 3 view radiographic study of the left thumb COMPARISON: None FINDINGS: No acute fracture or dislocation. Mild degenerative changes of the first carpal metacarpal joint, first metacarpal phalangeal and first interphalangeal joint with mild joint space narrowing and mild hypertrophic change. No soft tissue calcifications identified DIVISION OF RADIOLOGY Provider, Kinga Philip [facility] - 09/03/2020 * * *Final Report* * * DATE OF EXAM: Sep 03 2020 10:07AM WOX [id number] - XR DIGIT 3V FRONTAL/LAT/OBL LT / PROCEDURE REASON: Thumb weakness * * * * Physician Interpretation * * * * CLINICAL INDICATION: Thumb weakness TECHNIQUE: 3 view radiographic study of the left thumb COMPARISON: None FINDINGS: No acute fracture or dislocation. Mild degenerative changes of the first carpal metacarpal joint, first metacarpal phalangeal and first interphalangeal joint with mild joint space narrowing and mild hypertrophic change. No soft tissue calcifications identified IMPRESSION IMPRESSION: Mild degenerative changes. Physician Scientist: PSCB Transcribe Date/Time: Sep 03 2020 4:16P Dictated by : JESUS GREENE MD This examination was interpreted and the report reviewed and electronically signed by: JESUS GREENE MD on Sep 03 2020 4:17PM EST [facility] Radiology Study observation (narrative) [facility] XR Finger - left AP and Late ral and obliqueOrdered By: [facility] Provider on 09-03-2020 [facility] Vital Signs Date Time Vital Sign Value Performing Clinician Facility 12-30-2024 10:12040 Body mass index (BMI) [Ratio] 42 kg/m2 Koffi Huerta APRN.LAMINATION 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 Work Phone: [facility] 12-30-2024 10:12040 Body temperature 97.39 [degF] Koffi Huerta APRN.LAMINATION 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 Work Phone: [facility] 12-30-2024 10:12040 Body weight 125.3 kg Koffi Huerta APRN.LAMINATION 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 Work Phone: [facility] 12-30-2024 10:12040 Diastolic blood pressure 63 mm[Hg] Koffi Huerta APRN.LAMINATION 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 Work Phone: [facility] 12-30-2024 10:12-0400 Heart rate 92 /min Koffi Huerta SEASONER HAND.LAMINATION 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 Work Phone: [facility] 12-30-2024 10:12-0400 SaO2% (BldA) [Mass fraction] 97 % Medford Huerta SEASONER HAND.LAMINATION 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 Work Phone: [facility] 12-30-2024 10:12-0400 Systolic blood pressure 104 mm[Hg] Koffi Huerta SEASONER HAND.LAMINATION 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 Work Phone: [facility] 12-03-2024 10:38-0400 Body mass index (BMI) [Ratio] 42.42 kg/m2 Angelic Flores Work Phone: [facility] 12-03-2024 10:38-0400 Body temperature 96.69 [degF] Angelic Flores Work Phone: [facility] 12-03-2024 10:38-0400 Body weight 126.55 kg Angelic Flores Work Phone: [facility] 12-03-2024 10:38-0400 Diastolic blood pressure 75 mm[Hg] Angelic Flores Work Phone: [facility] 12-03-2024 10:38-0400 Heart rate 91 /min Angelic Flores Work Phone: [facility] 12-03-2024 10:38-0400 SaO2% (BldA) [Mass fraction] 97 % Angelic Flores Work Phone: [facility] 12-03-2024 10:38-0400 Systolic blood pressure 114 mm[Hg] Angelic Flores Work Phone: [facility] 11-04-2024 09:18-0400 Body mass index (BMI) [Ratio] 41.84 kg/m2 Medford Huerta SEASONER HAND.LAMINATION 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 Work Phone: [facility] 11-04-2024 09:18-0400 Body temperature 97.59 [degF] Koffi Huerta SEASONER HAND.LAMINATION 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 Work Phone: [facility] 11-04-2024 09:18-0400 Body weight 124.83 kg Medford Huerta SEASONER HAND.LAMINATION 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 Work Phone: [facility] 11-04-2024 09:18-0400 Diastolic blood pressure 54 mm[Hg] Koffi Huerta SEASONER HAND.LAMINATION 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 Work Phone: [facility] 11-04-2024 09:18-0400 Heart rate 91 /min Medford Huerta SEASONER HAND.LAMINATION 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 Work Phone: [facility] 11-04-2024 09:18-0400 SaO2% (BldA) [Mass fraction] 98 % Medford Huerta SEASONER HAND.LAMINATION 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 Work Phone: [facility] 11-04-2024 09:18-0400 Systolic blood pressure 105 mm[Hg] Medford Huerta SEASONER HAND.LAMINATION 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 Work Phone: [facility] 10-15-2024 14:21-0400 Diastolic blood pressure 60 mm[Hg] Tyra Suppan SEASONER HAND.LAMINATION 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 Work Phone: [facility] 10-15-2024 14:21-0400 Systolic blood pressure 160 mm[Hg] Tyra Suppan SEASONER HAND.LAMINATION 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 Work Phone: [facility] 10-15-2024 13:44-0400 Body mass index (BMI) [Ratio] 42.57 kg/m2 Tyra Suppan SEASONER HAND.LAMINATION 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 Work Phone: [facility] 10-15-2024 13:44-0400 Body weight 127 kg Tyra Suppan SEASONER HAND.LAMINATION 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 Work Phone: [facility] 10-15-2024 13:44-0400 Heart rate 84 /min Tyra Suppan SEASONER HAND.LAMINATION 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 Work Phone: [facility] 10-15-2024 13:44-0400 SaO2% (BldA) [Mass fraction] 97 % Tyra Suppan SEASONER HAND.LAMINATION 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 Work Phone: [facility] 10-07-2024 09:01-0400 Body mass index (BMI) [Ratio] 42.27 kg/m2 Corazon Laii DO Work Phone: [facility] 10-07-2024 09:01-0400 Body temperature 97.11 [degF] Corazon Laii DO Work Phone: [facility] 10-07-2024 09:01-0400 Body weight 126.1 kg Corazon Laii DO Work Phone: [facility] 10-07-2024 09:01-0400 Diastolic blood pressure 81 mm[Hg] Corazon Laii DO Work Phone: [facility] 10-07-2024 09:01-0400 Heart rate 94 /min Corazon Laii DO Work Phone: [facility] 10-07-2024 09:01-0400 SaO2% (BldA) [Mass fraction] 96 % Corazon Laii DO Work Phone: [facility] 10-07-2024 09:01-0400 Systolic blood pressure 123 mm[Hg] Corazon Laii DO Work Phone: [facility] 09-09-2024 10:04-0400 Body mass index (BMI) [Ratio] 42.73 kg/m2 Angelic Flores Work Phone: [facility] 09-09-2024 10:04-0400 Body temperature 98.2 [degF] Angelic Flores Work Phone: [facility] 09-09-2024 10:04-0400 Body weight 127.46 kg Angelic Flores Work Phone: [facility] 09-09-2024 10:04-0400 Diastolic blood pressure 81 mm[Hg] Angelic Flores Work Phone: [facility] 09-09-2024 10:04-0400 Heart rate 84 /min Angelic Flores Work Phone: [facility] 09-09-2024 10:04-0400 SaO2% (BldA) [Mass fraction] 98 % Angelic Flores Work Phone: [facility] 09-09-2024 10:04-0400 Systolic blood pressure 127 mm[Hg] Angelic Flores Work Phone: [facility] 08-12-2024 08:28-0400 Body mass index (BMI) [Ratio] 42.65 kg/m2 Corazon Laii DO Work Phone: [facility] 08-12-2024 08:28-0400 Body temperature 97.9 [degF] Corazon Laii DO Work Phone: [facility] 08-12-2024 08:28-0400 Body weight 127.23 kg Corazon Laii DO Work Phone: [facility] 08-12-2024 08:28-0400 Diastolic blood pressure 94 mm[Hg] Corazon Laii DO Work Phone: [facility] 08-12-2024 08:28-0400 Heart rate 100 /min Corazon Laii DO Work Phone: [facility] 08-12-2024 08:28-0400 SaO2% (BldA) [Mass fraction] 96 % Corazon Laii DO Work Phone: [facility] 08-12-2024 08:28-0400 Systolic blood pressure 145 mm[Hg] Corazon Laii DO Work Phone: [facility] 07-17-2024 07:51-0500 Body mass index (BMI) [Ratio] 41.81 kg/m2 Clemencia Guillermo SEASONER HAND.LAMINATION 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 Work Phone: [facility] 07-17-2024 07:51-0500 Body weight 124.74 kg Clemencia Guillermo SEASONER HAND.LAMINATION 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 Work Phone: [facility] 07-17-2024 07:51-0500 Diastolic blood pressure 76 mm[Hg] Clemencia Guillermo SEASONER HAND.LAMINATION 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 Work Phone: [facility] 07-17-2024 07:51-0500 Heart rate 96 /min Clemencia Guillermo SEASONER HAND.LAMINATION 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 Work Phone: [facility] 07-17-2024 07:51-0500 Respiratory rate 18 /min Clemencia Guillermo SEASONER HAND.LAMINATION 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 Work Phone: [facility] 07-17-2024 07:51-0500 SaO2% (BldA) [Mass fraction] 98 % Clemencia Barr APRN.LAMINATION 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 Work Phone: [facility] 07-17-2024 07:51-0500 Systolic blood pressure 137 mm[Hg] Clemencia Barr APRN.LAMINATION 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 Work Phone: [facility] 07-15-2024 09:09-0500 Body mass index (BMI) [Ratio] 41.81 kg/m2 Corazon Masci DO Work Phone: [facility] 07-15-2024 09:09-0500 Body temperature 97.39 [degF] Corazon Masci DO Work Phone: [facility] 07-15-2024 09:09-0500 Body weight 124.74 kg Corazon Masci DO Work Phone: [facility] Comment on above: this am per home scale 07-15-2024 09:09-0500 Diastolic blood pressure 85 mm[Hg] Corazon Masci DO Work Phone: [facility] 07-15-2024 09:09-0500 Heart rate 85 /min Corazon Masci DO Work Phone: [facility] 07-15-2024 09:09-0500 SaO2% (BldA) [Mass fraction] 98 % Corazon Masci DO Work Phone: [facility] 07-15-2024 09:09-0500 Systolic blood pressure 138 mm[Hg] Corazon Masci DO Work Phone: [facility] 06-17-2024 08:40-0500 Body mass index (BMI) [Ratio] 44.02 kg/m2 Corazon Masci DO Work Phone: [facility] 06-17-2024 08:40-0500 Body temperature 98.8 [degF] Corazon Masci DO Work Phone: [facility] 06-17-2024 08:40-0500 Body weight 131.32 kg Corazon Masci DO Work Phone: [facility] 06-17-2024 08:40-0500 Diastolic blood pressure 75 mm[Hg] Corazon Laii DO Work Phone: [facility] 06-17-2024 08:40-0500 Heart rate 80 /min Corazon Joellei DO Work Phone: [facility] 06-17-2024 08:40-0500 SaO2% (BldA) [Mass fraction] 97 % Corazon Laii DO Work Phone: [facility] 06-17-2024 08:40-0500 Systolic blood pressure 131 mm[Hg] Corazon Laii DO Work Phone: [facility] 05-31-2024 08:05-0500 Body height 172.7 cm Tyra Suppan SEASONER HAND.LAMINATION 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 Work Phone: [facility] 05-31-2024 08:05-0500 Body mass index (BMI) [Ratio] 41.51 kg/m2 Tyra Suppan SEASONER HAND.LAMINATION 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 Work Phone: [facility] 05-31-2024 08:05-0500 Body weight 123.83 kg Tyra Suppan SEASONER HAND.LAMINATION 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 Work Phone: [facility] 05-31-2024 08:05-0500 Diastolic blood pressure 78 mm[Hg] Tyra Suppan SEASONER HAND.LAMINATION 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 Work Phone: [facility] 05-31-2024 08:05-0500 Heart rate 100 /min Tyra Suppan SEASONER HAND.LAMINATION 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 Work Phone: [facility] 05-31-2024 08:05-0500 SaO2% (BldA) [Mass fraction] 96 % Tyra Suppan SEASONER HAND.LAMINATION 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 Work Phone: [facility] 05-31-2024 08:05-0500 Systolic blood pressure 120 mm[Hg] Tyra Suppan SEASONER HAND.LAMINATION 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 Work Phone: [facility] 05-20-2024 09:26-0500 Body mass index (BMI) [Ratio] 41.89 kg/m2 Angelic Flores Work Phone: [facility] 05-20-2024 09:26-0500 Body temperature 97.9 [degF] Angelic Flores Work Phone: [facility] 05-20-2024 09:26-0500 Body weight 126.1 kg Angelic Flores Work Phone: [facility] 05-20-2024 09:26-0500 Diastolic blood pressure 66 mm[Hg] Angelicdusty Flores Work Phone: [facility] 05-20-2024 09:26-0500 Heart rate 94 /min Angelic Flores Work Phone: [facility] 05-20-2024 09:26-0500 SaO2% (BldA) [Mass fraction] 97 % Angelic Flores Work Phone: [facility] 05-20-2024 09:26-0500 Systolic blood pressure 106 mm[Hg] Angelic Flores Work Phone: [facility] 05-09-2024 13:20-0500 Body mass index (BMI) [Ratio] 40.84 kg/m2 Tyra Suppan SEASONER HAND.LAMINATION 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 Work Phone: [facility] 05-09-2024 13:20-0500 Body temperature 98.1 [degF] Tyra Suppan SEASONER HAND.LAMINATION 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 Work Phone: [facility] 05-09-2024 13:20-0500 Body weight 122.92 kg Tyra Suppan SEASONER HAND.LAMINATION 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 Work Phone: [facility] 05-09-2024 13:20-0500 Diastolic blood pressure 54 mm[Hg] Tyra Suppan SEASONER HAND.LAMINATION 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 Work Phone: [facility] 05-09-2024 13:20-0500 Heart rate 99 /min Tyra Suppan SEASONER HAND.LAMINATION 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 Work Phone: [facility] 05-09-2024 13:20-0500 Respiratory rate 18 /min Tyra Suppan SEASONER HAND.LAMINATION 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 Work Phone: [facility] 05-09-2024 13:20-0500 SaO2% (BldA) [Mass fraction] 97 % Tyra Martell SEASONER HAND.LAMINATION 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 Work Phone: [facility] 05-09-2024 13:20-0500 Systolic blood pressure 120 mm[Hg] Tyra Martell SEASONER HAND.LAMINATION 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 Work Phone: [facility] 05-02-2024 09:15-0500 Body temperature 97.8 [degF] Dr. Jay Beckett DO Work Phone: [facility] 05-02-2024 09:15-0500 Diastolic blood pressure 90 mm[Hg] Dr. Jay Beckett DO Work Phone: [facility] 05-02-2024 09:15-0500 Heart rate 80 /min Dr. Jay Beckett DO Work Phone: [phone] [place] [address] 05-02-2024 09:15-0500 Respiratory rate 16 /min Dr. Jay Beckett DO Work Phone: [facility] 05-02-2024 09:15-0500 SaO2% (BldA) [Mass fraction] 99 % Dr. Jay Beckett DO Work Phone: [facility] 05-02-2024 09:15-0500 Systolic blood pressure 153 mm[Hg] Dr. Jay Beckett DO Work Phone: [facility] 05-02-2024 02:42-0500 Body mass index (BMI) [Ratio] 41 kg/m2 Dr. Jay Beckett DO Work Phone: [phone] [place] [address] 05-02-2024 02:42-0500 Body weight 137.[address] Jay Beckett DO Work Phone: [facility] 05-01-2024 14:02-0500 Body height 182.[address] Jay Beckett DO Work Phone: 2(102)[phone] [place] [address] 05-01-2024 05:00-0500 Inhaled oxygen flow rate 2 L/min Dr. Jay Beckett DO Work Phone: [facility] 04-25-2024 13:00-0500 Body temperature 97.5 [degF] Treatment Wstr Work Phone: [facility] 04-25-2024 13:00-0500 Diastolic blood pressure 68 mm[Hg] Treatment Wstr Work Phone: [facility] 04-25-2024 13:00-0500 Heart rate 70 /min Treatment Wstr Work Phone: [facility] 04-25-2024 13:00-0500 Respiratory rate 18 /min Treatment Wstr Work Phone: [facility] 04-25-2024 13:00-0500 SaO2% (BldA) [Mass fraction] 97 % Treatment Wstr Work Phone: [facility] 04-25-2024 13:00-0500 Systolic blood pressure 130 mm[Hg] Treatment Wstr Work Phone: [facility] 04-22-2024 09:35-0500 Body mass index (BMI) [Ratio] 43.55 kg/m2 Corazon Joellei DO Work Phone: [facility] 04-22-2024 09:35-0500 Body temperature 97.59 [degF] Corazon Masci DO Work Phone: [facility] 04-22-2024 09:35-0500 Body weight 131.09 kg Corazon Masci DO Work Phone: [facility] 04-22-2024 09:35-0500 Diastolic blood pressure 79 mm[Hg] Corazon Masci DO Work Phone: [facility] 04-22-2024 09:35-0500 Heart rate 87 /min Corazon Masci DO Work Phone: [facility] 04-22-2024 09:35-0500 Respiratory rate 20 /min Corazon Masci DO Work Phone: [facility] 04-22-2024 09:35-0500 SaO2% (BldA) [Mass fraction] 98 % Corazon Renteria DO Work Phone: [facility] 04-22-2024 09:35-0500 Systolic blood pressure 131 mm[Hg] Corazon Renteria DO Work Phone: [facility] 04-04-2024 13:57-0500 Body temperature 97.59 [degF] Injection Wstr Work Phone: [facility] 04-03-2024 09:39-0500 Diastolic blood pressure 67 mm[Hg] Treatment Wstr Work Phone: [facility] 04-03-2024 09:39-0500 Heart rate 78 /min Treatment Wstr Work Phone: [facility] 04-03-2024 09:39-0500 SaO2% (BldA) [Mass fraction] 99 % Treatment Wstr Work Phone: [facility] 04-03-2024 09:39-0500 Systolic blood pressure 114 mm[Hg] Treatment Wstr Work Phone: [facility] 04-02-2024 13:19-0500 Body temperature 97.7 [degF] Treatment Wstr Work Phone: [facility] 04-02-2024 13:19-0500 Diastolic blood pressure 66 mm[Hg] Treatment Wstr Work Phone: [facility] 04-02-2024 13:19-0500 Heart rate 87 /min Treatment Wstr Work Phone: [facility] 04-02-2024 13:19-0500 SaO2% (BldA) [Mass fraction] 95 % Treatment Wstr Work Phone: [facility] 04-02-2024 13:19-0500 Systolic blood pressure 126 mm[Hg] Treatment Wstr Work Phone: [facility] 04-01-2024 09:38-0500 Body temperature 97.5 [degF] Treatment Wstr Work Phone: [facility] 04-01-2024 09:38-0500 Diastolic blood pressure 77 mm[Hg] Treatment Wstr Work Phone: [facility] 04-01-2024 09:38-0500 Heart rate 108 /min Treatment Wstr Work Phone: [facility] 04-01-2024 09:38-0500 SaO2% (BldA) [Mass fraction] 99 % Treatment Wstr Work Phone: [facility] 04-01-2024 09:38-0500 Systolic blood pressure 166 mm[Hg] Treatment Wstr Work Phone: [facility] 03-28-2024 13:11-0500 Body mass index (BMI) [Ratio] 41.36 kg/m2 Angelic Flores Work Phone: [facility] 03-28-2024 13:11-0500 Body temperature 97.11 [degF] Angelic Flores Work Phone: [facility] 03-28-2024 13:11-0500 Body weight 124.51 kg Angelic Flores Work Phone: [facility] 03-28-2024 13:11-0500 Diastolic blood pressure 97 mm[Hg] Angelic Flores Work Phone: [facility] 03-28-2024 13:11-0500 Heart rate 69 /min Angelic Flores Work Phone: [facility] 03-28-2024 13:11-0500 SaO2% (BldA) [Mass fraction] 98 % Angelic Flores Work Phone: [facility] 03-28-2024 13:11-0500 Systolic blood pressure 170 mm[Hg] Angelic Flores Work Phone: [facility] 03-14-2024 14:57-0400 Body mass index (BMI) [Ratio] 42.79 kg/m2 Injection Wstr Work Phone: [facility] 03-14-2024 14:57-0400 Body temperature 97.11 [degF] Injection Wstr Work Phone: [facility] 03-14-2024 14:57-0400 Body weight 128.82 kg Injection Wstr Work Phone: [facility] 03-14-2024 14:57-0400 Diastolic blood pressure 63 mm[Hg] Injection Wstr Work Phone: [facility] 03-14-2024 14:57-0400 Heart rate 120 /min Injection Wstr Work Phone: [facility] 03-14-2024 14:57-0400 Respiratory rate 16 /min Injection Wstr Work Phone: [facility] 03-14-2024 14:57-0400 SaO2% (BldA) [Mass fraction] 92 % Injection Wstr Work Phone: [facility] Comment on above: room air 03-14-2024 14:57-0400 Systolic blood pressure 103 mm[Hg] Injection Wstr Work Phone: [facility] 03-13-2024 09:01-0400 Body temperature 97 [degF] Treatment Wstr Work Phone: [facility] 03-13-2024 09:01-0400 Diastolic blood pressure 56 mm[Hg] Treatment Wstr Work Phone: [facility] 03-13-2024 09:01-0400 Heart rate 92 /min Treatment Wstr Work Phone: [facility] 03-13-2024 09:01-0400 Respiratory rate 18 /min Treatment Wstr Work Phone: [facility] 03-13-2024 09:01-0400 SaO2% (BldA) [Mass fraction] 96 % Treatment Wstr Work Phone: [facility] 03-13-2024 09:01-0400 Systolic blood pressure 93 mm[Hg] Treatment Wstr Work Phone: [facility] 03-12-2024 09:12-0400 Body temperature 97.5 [degF] Treatment Wstr Work Phone: [facility] 03-12-2024 09:12-0400 Diastolic blood pressure 65 mm[Hg] Treatment Wstr Work Phone: [facility] 03-12-2024 09:12-0400 Heart rate 91 /min Treatment Wstr Work Phone: [facility] 03-12-2024 09:12-0400 Respiratory rate 20 /min Treatment Wstr Work Phone: [facility] 03-12-2024 09:12-0400 SaO2% (BldA) [Mass fraction] 97 % Treatment Wstr Work Phone: [facility] 03-12-2024 09:12-0400 Systolic blood pressure 136 mm[Hg] Treatment Wstr Work Phone: [facility] 03-11-2024 09:57-0400 Body mass index (BMI) [Ratio] 42.79 kg/m2 Treatment Wstr Work Phone: [facility] 03-11-2024 09:57-0400 Body temperature 97.11 [degF] Treatment Wstr Work Phone: [facility] 03-11-2024 09:57-0400 Body weight 128.82 kg Treatment Wstr Work Phone: [facility] 03-11-2024 09:57-0400 Diastolic blood pressure 51 mm[Hg] Treatment Wstr Work Phone: [facility] 03-11-2024 09:57-0400 Heart rate 96 /min Treatment Wstr Work Phone: [facility] 03-11-2024 09:57-0400 SaO2% (BldA) [Mass fraction] 99 % Treatment Wstr Work Phone: [facility] 03-11-2024 09:57-0400 Systolic blood pressure 93 mm[Hg] Treatment Wstr Work Phone: [facility] 02-29-2024 08:06-0400 Body mass index (BMI) [Ratio] 41.14 kg/m2 Tyra Martell APRN.LAMINATION 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 Work Phone: [facility] 02-29-2024 08:06-0400 Body weight 123.83 kg Tyra Martell APRN.LAMINATION 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 Work Phone: [facility] 02-29-2024 08:06-0400 Diastolic blood pressure 52 mm[Hg] Tyra Suppan SEASONER HAND.LAMINATION 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 Work Phone: [facility] 02-29-2024 08:06-0400 Heart rate 70 /min Tyra Suppan SEASONER HAND.LAMINATION 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 Work Phone: [facility] 02-29-2024 08:06-0400 SaO2% (BldA) [Mass fraction] 100 % Tyra Suppan SEASONER HAND.LAMINATION 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 Work Phone: [facility] 02-29-2024 08:06-0400 Systolic blood pressure 84 mm[Hg] Tyra Suppan SEASONER HAND.LAMINATION 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 Work Phone: [facility] 02-22-2024 13:55-0400 Body mass index (BMI) [Ratio] 42.19 kg/m2 Injection Wstr Work Phone: [facility] 02-22-2024 13:55-0400 Body temperature 97.9 [degF] Injection Wstr Work Phone: [facility] 02-22-2024 13:55-0400 Body weight 127.01 kg Injection Wstr Work Phone: [facility] 02-22-2024 13:55-0400 Diastolic blood pressure 56 mm[Hg] Injection Wstr Work Phone: [facility] 02-22-2024 13:55-0400 Heart rate 105 /min Injection Wstr Work Phone: [facility] 02-22-2024 13:55-0400 SaO2% (BldA) [Mass fraction] 96 % Injection Wstr Work Phone: [facility] 02-22-2024 13:55-0400 Systolic blood pressure 99 mm[Hg] Injection Wstr Work Phone: [facility] 02-21-2024 09:54-0400 Body temperature 97.11 [degF] Treatment Wstr Work Phone: [facility] 02-21-2024 09:54-0400 Diastolic blood pressure 70 mm[Hg] Treatment Wstr Work Phone: [facility] 02-21-2024 09:54-0400 Heart rate 85 /min Treatment Wstr Work Phone: [facility] 02-21-2024 09:54-0400 Respiratory rate 20 /min Treatment Wstr Work Phone: [facility] 02-21-2024 09:54-0400 SaO2% (BldA) [Mass fraction] 93 % Treatment Wstr Work Phone: [facility] 02-21-2024 09:54-0400 Systolic blood pressure 115 mm[Hg] Treatment Wstr Work Phone: [facility] 02-20-2024 08:25-0400 Body temperature 97.81 [degF] Treatment Wstr Work Phone: [facility] 02-20-2024 08:25-0400 Diastolic blood pressure 56 mm[Hg] Treatment Wstr Work Phone: [facility] 02-20-2024 08:25-0400 Heart rate 83 /min Treatment Wstr Work Phone: [facility] 02-20-2024 08:25-0400 Respiratory rate 18 /min Treatment Wstr Work Phone: [facility] 02-20-2024 08:25-0400 SaO2% (BldA) [Mass fraction] 97 % Treatment Wstr Work Phone: [facility] 02-20-2024 08:25-0400 Systolic blood pressure 93 mm[Hg] Treatment Wstr Work Phone: [facility] 02-19-2024 10:15-0400 Body temperature 98.01 [degF] Treatment Wstr Work Phone: [facility] 02-19-2024 10:15-0400 Diastolic blood pressure 83 mm[Hg] Treatment Wstr Work Phone: [facility] 02-19-2024 10:15-0400 Heart rate 76 /min Treatment Wstr Work Phone: [facility] 02-19-2024 10:15-0400 Respiratory rate 18 /min Treatment Wstr Work Phone: [facility] 02-19-2024 10:15-0400 SaO2% (BldA) [Mass fraction] 98 % Treatment Wstr Work Phone: [facility] 02-19-2024 10:15-0400 Systolic blood pressure 146 mm[Hg] Treatment Wstr Work Phone: [facility] 02-16-2024 08:21-0400 Body mass index (BMI) [Ratio] 41.46 kg/m2 Koffi Huerta SEASONER HAND.LAMINATION 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 Work Phone: [facility] 02-16-2024 08:21-0400 Body temperature 97.2 [degF] Koffi Nevilleenter SEASONER HAND.LAMINATION 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 Work Phone: [facility] 02-16-2024 08:21-0400 Body weight 124.8 kg Koffi Huerta SEASONER HAND.LAMINATION 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 Work Phone: [facility] 02-16-2024 08:21-0400 Diastolic blood pressure 80 mm[Hg] Koffi Huerta SEASONER HAND.LAMINATION 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 Work Phone: [facility] 02-16-2024 08:21-0400 Heart rate 96 /min Koffi Huerta SEASONER HAND.LAMINATION 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 Work Phone: [facility] 02-16-2024 08:21-0400 SaO2% (BldA) [Mass fraction] 97 % Koffi Huerta SEASONER HAND.LAMINATION 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 Work Phone: [facility] 02-16-2024 08:21-0400 Systolic blood pressure 129 mm[Hg] Medford Huerta SEASONER HAND.LAMINATION 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 Work Phone: [facility] 02-01-2024 10:41-0400 Body temperature 96.69 [degF] Injection Wstr Work Phone: [facility] 01-31-2024 08:22-0400 Body temperature 97.2 [degF] Treatment Wstr Work Phone: [facility] 01-31-2024 08:22-0400 Diastolic blood pressure 74 mm[Hg] Treatment Wstr Work Phone: [facility] 01-31-2024 08:22-0400 Heart rate 78 /min Treatment Wstr Work Phone: [facility] 01-31-2024 08:22-0400 Respiratory rate 18 /min Treatment Wstr Work Phone: [facility] 01-31-2024 08:22-0400 SaO2% (BldA) [Mass fraction] 98 % Treatment Wstr Work Phone: [facility] 01-31-2024 08:22-0400 Systolic blood pressure 120 mm[Hg] Treatment Wstr Work Phone: [facility] 01-30-2024 13:35-0400 Body temperature 96.69 [degF] Treatment Wstr Work Phone: [facility] 01-30-2024 13:35-0400 Diastolic blood pressure 81 mm[Hg] Treatment Wstr Work Phone: [facility] 01-30-2024 13:35-0400 Heart rate 110 /min Treatment Wstr Work Phone: [facility] 01-30-2024 13:35-0400 Respiratory rate 22 /min Treatment Wstr Work Phone: [facility] 01-30-2024 13:35-0400 SaO2% (BldA) [Mass fraction] 97 % Treatment Wstr Work Phone: [facility] 01-30-2024 13:35-0400 Systolic blood pressure 151 mm[Hg] Treatment Wstr Work Phone: [facility] 01-29-2024 14:27-0400 Diastolic blood pressure 77 mm[Hg] Treatment Wstr Work Phone: [facility] 01-29-2024 14:27-0400 Heart rate 87 /min Treatment Wstr Work Phone: [facility] 01-29-2024 14:27-0400 Respiratory rate 18 /min Treatment Wstr Work Phone: [facility] 01-29-2024 14:27-0400 SaO2% (BldA) [Mass fraction] 99 % Treatment Wstr Work Phone: [facility] 01-29-2024 14:27-0400 Systolic blood pressure 139 mm[Hg] Treatment Wstr Work Phone: [facility] 01-29-2024 09:57-0400 Body mass index (BMI) [Ratio] 41.06 kg/m2 Treatment Wstr Work Phone: [facility] 01-29-2024 09:57-0400 Body temperature 97.39 [degF] Treatment Wstr Work Phone: [facility] 01-29-2024 09:57-0400 Body weight 123.61 kg Treatment Wstr Work Phone: [facility] 01-25-2024 09:01-0400 Body mass index (BMI) [Ratio] 40.99 kg/m2 Tyra Suppflor SEASONER HAND.LAMINATION 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 Work Phone: [facility] 01-25-2024 09:01-0400 Body weight 123.38 kg Tyra Suppflor SEASONER HAND.LAMINATION 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 Work Phone: [facility] 01-25-2024 09:01-0400 Diastolic blood pressure 62 mm[Hg] Tyra Suppflor SEASONER HAND.LAMINATION 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 Work Phone: [facility] 01-25-2024 09:01-0400 Heart rate 96 /min Tyra Suppflor SEASONER HAND.LAMINATION 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 Work Phone: [facility] 01-25-2024 09:01-0400 SaO2% (BldA) [Mass fraction] 98 % Tyra Suppflor SEASONER HAND.LAMINATION 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 Work Phone: [facility] 01-25-2024 09:01-0400 Systolic blood pressure 130 mm[Hg] Tyra Suppan SEASONER HAND.LAMINATION 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 Work Phone: [facility] 01-16-2024 10:00-0400 Body temperature 97.5 [degF] Treatment Wstr Work Phone: [facility] 01-16-2024 10:00-0400 Diastolic blood pressure 60 mm[Hg] Treatment Wstr Work Phone: [facility] 01-16-2024 10:00-0400 Heart rate 98 /min Treatment Wstr Work Phone: [facility] 01-16-2024 10:00-0400 Systolic blood pressure 101 mm[Hg] Treatment Wstr Work Phone: [facility] 01-12-2024 13:17-0400 Body height 173.5 cm Corazon Masci DO Work Phone: [facility] 01-12-2024 13:17-0400 Body mass index (BMI) [Ratio] 41.74 kg/m2 Corazon Masci DO Work Phone: [facility] 01-12-2024 13:17-0400 Body temperature 96.3 [degF] Corazon Masci DO Work Phone: [facility] 01-12-2024 13:17-0400 Body weight 125.65 kg Corazon Masci DO Work Phone: [facility] 01-12-2024 13:17-0400 Diastolic blood pressure 82 mm[Hg] Corazon Masci DO Work Phone: [facility] 01-12-2024 13:17-0400 Heart rate 89 /min Corazon Masci DO Work Phone: [facility] 01-12-2024 13:17-0400 SaO2% (BldA) [Mass fraction] 96 % Corazon Masci DO Work Phone: [facility] 01-12-2024 13:17-0400 Systolic blood pressure 127 mm[Hg] Corazon Masci DO Work Phone: [facility] 12-12-2023 09:10-0400 Body temperature 97.7 [degF] Tyra Martell SEASONER HAND.LAMINATION 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 Work Phone: [facility] 12-12-2023 09:10-0400 Diastolic blood pressure 66 mm[Hg] Tyra Martell SEASONER HAND.LAMINATION 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 Work Phone: [facility] 12-12-2023 09:10-0400 Heart rate 98 /min Tyra Suppan SEASONER HAND.LAMINATION 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 Work Phone: [facility] 12-12-2023 09:10-0400 Respiratory rate 22 /min Tyra Suppan SEASONER HAND.LAMINATION 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 Work Phone: [facility] 12-12-2023 09:10-0400 SaO2% (BldA) [Mass fraction] 96 % Tyra Suppan SEASONER HAND.LAMINATION 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 Work Phone: [facility] 12-12-2023 09:10-0400 Systolic blood pressure 128 mm[Hg] Tyra Suppan SEASONER HAND.LAMINATION 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 Work Phone: [facility] 09-29-2023 09:33-0400 Body height 175.3 cm Marty Saravia DO Work Phone: [facility] 09-29-2023 09:33-0400 Body mass index (BMI) [Ratio] 42.97 kg/m2 Marty Saravia DO Work Phone: [facility] 09-29-2023 09:33-0400 Body weight 132 kg Marty Saravia DO Work Phone: [facility] 09-29-2023 09:33-0400 Diastolic blood pressure 70 mm[Hg] Marty Saravia DO Work Phone: [facility] 09-29-2023 09:33-0400 Heart rate 84 /min Marty Saravia DO Work Phone: [facility] 09-29-2023 09:33-0400 SaO2% (BldA) [Mass fraction] 96 % Marty Randolphins DO Work Phone: [facility] 09-29-2023 09:33-0400 Systolic blood pressure 126 mm[Hg] Marty Manjit DO Work Phone: [facility] 08-29-2023 08:56-0400 Body weight 130.64 kg Tyra Suppan SEASONER HAND.SOLE TACKER Work Phone: [facility] 08-29-2023 08:56-0400 Diastolic blood pressure 64 mm[Hg] Tyra Suppan SEASONER HAND.SOLE TACKER Work Phone: [facility] 08-29-2023 08:56-0400 Heart rate 82 /min Tyra Suppan SEASONER HAND.SOLE TACKER Work Phone: [facility] 08-29-2023 08:56-0400 Respiratory rate 18 /min Tyra Suppan SEASONER HAND.SOLE TACKER Work Phone: [facility] 08-29-2023 08:56-0400 SaO2% (BldA) [Mass fraction] 95 % Tyra Suppan SEASONER HAND.SOLE TACKER Work Phone: [facility] 08-29-2023 08:56-0400 Systolic blood pressure 122 mm[Hg] Tyra Suppan SEASONER HAND.SOLE TACKER Work Phone: [facility] 04-18-2023 08:48-0500 Body height 175.3 cm Trisha Malcolm MD Work Phone: [facility] 04-18-2023 08:48-0500 Body temperature 97.59 [degF] Trisha Malclom MD Work Phone: [facility] 04-18-2023 08:48-0500 Body weight 132.18 kg Trisha Malcolm MD Work Phone: [facility] 04-18-2023 08:48-0500 Diastolic blood pressure 82 mm[Hg] Trisha Malcolm MD Work Phone: [facility] 04-18-2023 08:48-0500 Heart rate 91 /min Trisha Malcolm MD Work Phone: [facility] 04-18-2023 08:48-0500 SaO2% (BldA) [Mass fraction] 96 % Trisha Malcolm MD Work Phone: [facility] 04-18-2023 08:48-0500 Systolic blood pressure 124 mm[Hg] Trisha Malcolm MD Work Phone: [facility] 03-21-2023 10:53-0400 Body weight 130.18 kg Anitra Dunnter SEASONER HAND.LAMINATION 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 Work Phone: [facility] 03-21-2023 10:53-0400 Diastolic blood pressure 72 mm[Hg] Anitra Groveton SEASONER HAND.LAMINATION 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 Work Phone: [facility] 03-21-2023 10:53-0400 Heart rate 100 /min Anitra Groveton SEASONER HAND.LAMINATION 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 Work Phone: [facility] 03-21-2023 10:53-0400 SaO2% (BldA) [Mass fraction] 96 % Anitra Groveton SEASONER HAND.LAMINATION 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 Work Phone: [facility] 03-21-2023 10:53-0400 Systolic blood pressure 124 mm[Hg] Anitra Groveton SEASONER HAND.LAMINATION 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 Work Phone: [facility] 02-23-2023 08:40-0400 Body height 173 cm NA Hernandez PA-C Work Phone: [facility] 02-23-2023 08:40-0400 Body weight 130.64 kg NA Hernandez PA-C Work Phone: [facility] 02-23-2023 08:40-0400 Diastolic blood pressure 68 mm[Hg] NA Hernandez PA-C Work Phone: [facility] 02-23-2023 08:40-0400 Heart rate 71 /min NA Hernandez PA-C Work Phone: [facility] 02-23-2023 08:40-0400 Respiratory rate 20 /min NA Hernandez PA-C Work Phone: [facility] 02-23-2023 08:40-0400 SaO2% (BldA) [Mass fraction] 95 % NA Hernandez PA-C Work Phone: [facility] 02-23-2023 08:40-0400 Systolic blood pressure 122 mm[Hg] NA Hernandez PA-C Work Phone: [facility] 09-13-2022 08:09-0400 Body weight 131.09 kg NA Hernandez PA-C Work Phone: [facility] 09-13-2022 08:09-0400 Diastolic blood pressure 76 mm[Hg] NA Hernandez PA-C Work Phone: [facility] 09-13-2022 08:09-0400 Heart rate 72 /min NA Hernandez PA-C Work Phone: [facility] 09-13-2022 08:09-0400 Respiratory rate 16 /min NA Hernandez PA-C Work Phone: [facility] 09-13-2022 08:09-0400 SaO2% (BldA) [Mass fraction] 95 % NA Hernandez PA-C Work Phone: [facility] 09-13-2022 08:09-0400 Systolic blood pressure 132 mm[Hg] NA Hernandez PA-C Work Phone: [facility] 08-16-2022 08:37-0400 Body weight 131.54 kg NA Hernandez PA-C Work Phone: [facility] 08-16-2022 08:37-0400 Diastolic blood pressure 72 mm[Hg] NA Hernandez PA-C Work Phone: [facility] 08-16-2022 08:37-0400 Heart rate 88 /min NA Hernandez PA-C Work Phone: [facility] 08-16-2022 08:37-0400 Respiratory rate 16 /min NA Hernandez PA-C Work Phone: [facility] 08-16-2022 08:37-0400 SaO2% (BldA) [Mass fraction] 96 % NA Hernandez PA-C Work Phone: [facility] 08-16-2022 08:37-0400 Systolic blood pressure 136 mm[Hg] NA Hernandez PA-C Work Phone: [facility] 02-08-2022 08:33-0400 Body height 173.4 cm Respiratory Wstr Work Phone: [facility] 02-08-2022 08:33-0400 Body weight 129.28 kg Respiratory Wstr Work Phone: [facility] 02-08-2022 08:33-0400 Heart rate 87 /min Respiratory Wstr Work Phone: [facility] 02-08-2022 08:33-0400 Respiratory rate 16 /min Respiratory Wstr Work Phone: [facility] 02-08-2022 08:33-0400 SaO2% (BldA) [Mass fraction] 94 % Respiratory Wstr Work Phone: [facility] 02-01-2022 07:57-0400 Body height 174 cm NA Hernandez PA-C Work Phone: [facility] 02-01-2022 07:57-0400 Body weight 129.73 kg NA Hernandez PA-C Work Phone: [facility] 02-01-2022 07:57-0400 Diastolic blood pressure 78 mm[Hg] NA Hernandez PA-C Work Phone: [facility] 02-01-2022 07:57-0400 Heart rate 85 /min NA Hernandez PA-C Work Phone: [facility] 02-01-2022 07:57-0400 Respiratory rate 16 /min NA Hernandez PA-C Work Phone: [facility] 02-01-2022 07:57-0400 SaO2% (BldA) [Mass fraction] 97 % NA Hernandez PA-C Work Phone: [facility] 02-01-2022 07:57-0400 Systolic blood pressure 132 mm[Hg] NA Hernandez PA-C Work Phone: [facility] Encounters Encounter Date Encounter Type Care Provider Facility Start: 01-03-2025 ambulatory Clemencia Barr [employer] Fac ility:[facility] Start: 12-30-2024 End: 12-30-2024 Patient encounter procedure Koffi Huerta SEASONER HAND.LAMINATION 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 Work Phone: Hematology/Oncology Start: 12-30-2024 End: 12-30-2024 ambulatory Treatment Rm 6 Ezequiel [facility] Wstr Work Phone: Hematology/Oncology Comment on above: 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); 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); Metastatic cancer to bone (HCC); 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); 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); Metastatic cancer to bone (HCC) Start: 12-19-2024 End: 01-01-2025 Telephone encounter Tyra Martell APRN.LAMINATION 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 Work Phone: [facility] Comment on above: Patient Update Start: 12-16-2024 End: 12-17-2024 Telephone encounter Corazon Renteria DO Work Phone: Hematology/Oncology Comment on above: Results Start: 12-16-2024 ambulatory TYRA MARTELL Fac ility:[facility] Start: 12-16-2024 End: 12-16-2024 Subsequent hospital visit by physician [facility] PET CT Comment on above: 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] Start: 12-13-2024 End: 12-13-2024 Telephone encounter Tyra Martell APRN.LAMINATION 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 Work Phone: [facility] Comment on above: Patient Update; Barbra ent Question Start: 12-09-2024 End: 12-09-2024 Telephone encounter Corazon Renteria DO Work Phone: Hematology/Oncology Comment on above: Patient Question Start: 12-05-2024 End: 12-13-2024 Telephone encounter Tyra Martell APRN.LAMINATION 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 Work Phone: Administration Comment on above: Orders; Patient Ques tion (Patient called about the [facility] sleep apnea test that needs scheduled.) Start: 12-03-2024 End: 12-03-2024 ambulatory Treatment Rm 12 [facility] Wstr Work Phone: Hematology/Oncology Comment on above: 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); Metastatic cancer to bone (HCC); 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); 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); 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) Start: 12-03-2024 End: 12-03-2024 Patient encounter procedure Angelic Flores Work Phone: Hematology/Oncology Start: 12-03-2024 End: 12-03-2024 ambulatory TYRA RUSHAN Facility:[facility] Start: 11-18-2024 ambulatory TYRA A SUPPAN Fac ility:[facility] Start: 11-18-2024 End: 11-18-2024 Subsequent hospital visit by physician [facility] PET CT Comment on above: Arrived Start: 11-12-2024 End: 11-12-2024 Refill Tyra Martell APRN.LAMINATION 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 Work Phone: [facility] [place] Comment on above: Refill Request Start: 11-11-2024 End: 11-11-2024 Telephone encounter Tyra Martell APRN.LAMINATION 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 Work Phone: [facility] [place] Comment on above: Patient Question (Re : upcoming appt); Orders Start: 11-05-2024 End: 11-05-2024 Telephone encounter Corazon Renteria DO Work Phone[facility] Comment on above: Results Start: 11-04-2024 End: 11-04-2024 Patient encounter procedure Koffi Huerta APRN.LAMINATION 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 Work Phone: Hematology/Oncology Start: 11-04-2024 End: 11-04-2024 ambulatory Treatment Rm 12 Ezequiel [facility] Wstr Work Phone: Hematology/Oncology Comment on above: 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); 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); Metastatic cancer to bone (HCC); 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); 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); Metastatic cancer to bone (HCC) Start: 10-28-2024 End: 10-28-2024 Telephone encounter Tyra Martell SEASONER HAND.LAMINATION 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 Work Phone: [facility] Comment on above: Medication Request Start: 10-22-2024 End: 10-24-2024 Telephone encounter Corazon Renteria DO Work Phone: Hematology/Oncology Comment on above: Results Start: 10-15-2024 End: 10-15-2024 Office outpatient visit 25 minutes Tyra Martell APRN.LAMINATION 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 Work Phone: [facility] [place] Comment on above: Prediabetes (Primary Dx); Benign prostatic hyperplasia with urinary frequency; Hypertension, essential; Hyperlipidemia, mixed; Coronary artery calcification seen on CAT scan; 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); 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); Degeneration of intervertebral disc of lumbar region, unspecified whether pain present; Alcohol dependence with uncomplicated intoxication (HCC); Diarrhea, unspecified type Start: 10-15-2024 End: 10-15-2024 ambulatory TYRA MARTELL Facility:[facility] Start: 10-15-2024 ambulatory TYRA MARTELL Fac ility:[facility] Start: 10-15-2024 End: 10-15-2024 [facility] Comment on above: Malignant neoplasm o f unspecified part of unspecified bronchus or lung (HCC) [C34.90] Start: 10-07-2024 End: 10-07-2024 Office outpatient visit 25 minutes Corazon Renteria DO Work Phone: Hematology/Oncology Comment on above: 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); 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); Metastatic cancer to bone (HCC); 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) Start: 10-07-2024 End: 10-07-2024 ambulatory Treatment Rm 8 [facility] Wstr Work Phone: Hematology/Oncology Comment on above: 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); Metastatic cancer to bone (HCC); 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); 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) Start: 09-26-2024 End: 11-26-2024 Follow-up encounter Tyra Martell APRN.LAMINATION 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 Work Phone: [facility] Start: 09-24-2024 End: 09-24-2024 ambulatory TYRA MARTELL Facility:[facility] Start: 09-09-2024 End: 09-09-2024 Patient encounter procedure Angelic Flores Work Phone: Hematology/Oncology Start: 09-09-2024 End: 09-09-2024 ambulatory Treatment Rm 10 Ezequiel [facility] Wstr Work Phone: Hematology/Oncology Comment on above: 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); Metastatic cancer to bone (HCC); 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); 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) Malignant neoplasm o f unspecified part of unspecified bronchus or lung (HCC) (Primary Dx); 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); 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); Metastatic cancer to bone (HCC); 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) Start: 09-01-2024 End: 09-02-2024 Refill Marty Saravia DO Work Phone: Cardiology Comment on above: Refill Request Start: 08-14-2024 End: 08-14-2024 Refill Marty Saravia DO Work Phone: Cardiology Comment on above: Refill Request Start: 08-12-2024 End: 11-08-2024 Telephone encounter Clemencia Barr APRN.LAMINATION 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 Work Phone: Neurology Comment on above: Results Start: 08-12-2024 End: 08-12-2024 ambulatory Treatment Rm 8 [facility] Work Phone: Hematology/Oncology Comment on above: 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); Metastatic cancer to bone (HCC); 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); 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) Start: 08-12-2024 End: 08-12-2024 Office outpatient visit 25 minutes Corazon Renteria DO Work Phone: Hematology/Oncology Comment on above: 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); 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); Metastatic cancer to bone (HCC); 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 Jay Beckett DO Work Phone: [facility] Work Phone: Start: 08-02-2024 End: 08-02-2024 Patient encounter procedure Clemencia Barr [facility] -Sleep Lab Work Phone: Start: 08-02-2024 End: 08-02-2024 ambulatory Clemencia Barr Facility:[facility] Start: 07-31-2024 End: 07-31-2024 ambulatory TYRA MARTELL Facility:[facility] Start: 07-31-2024 End: 07-31-2024 Subsequent hospital visit by physician Mri Radio [facility] (I-Stat/1.5t) Work Phone: Radiology Comment on above: Lesion of liver [K76 .9] Start: 07-17-2024 End: 07-17-2024 Patient encounter procedure Clemencia Barr APRN.LAMINATION 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 Work Phone: Neurology Comment on above: ROMIE (obstructive sle ep apnea) (Primary Dx); Obstructive sleep apnea on CPAP; Intolerance of continuous positive airway pressure (CPAP) ventilation; 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); Obesity, Class III, BMI 40-49.9 (morbid obesity) (HCC) Start: 07-17-2024 End: 07-17-2024 ambulatory CLEMENCIA BARR Facility:[facility] Start: 07-15-2024 End: 07-15-2024 ambulatory Treatment Rm 8 [facility] Work Phone: Hematology/Oncology Comment on above: 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); Metastatic cancer to bone (HCC); 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); 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) Start: 07-15-2024 End: 07-15-2024 Office outpatient visit 25 minutes Corazon Ellis Guestmobgraciela DO Work Phone: Hematology/Oncology Comment on above: 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); 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); Metastatic cancer to bone (HCC); 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); Anemia due to antineoplastic chemotherapy Start: 07-10-2024 End: 07-10-2024 ambulatory CORAZON RENTERIA Facility:[facility] Start: 07-10-2024 End: 07-10-2024 ambulatory ANGELIC FLORES Facility:[facility] Start: 07-10-2024 End: 07-10-2024 Subsequent [facility] Comment on above: 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] Start: 06-17-2024 End: 06-17-2024 Office outpatient visit 25 minutes Corazon Rhonda [employer] Work Phone: Hematology/Oncology Comment on above: 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); 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); Metastatic cancer to bone (HCC); 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); Anemia due to antineoplastic chemotherapy Start: 06-17-2024 End: 06-17-2024 ambulatory Treatment Rm 9 Ezequiel [facility] [employer] Work Phone: Hematology/Oncology Comment on above: 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); Metastatic cancer to bone (HCC); 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); 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) Start: 06-06-2024 End: 06-06-2024 Telephone encounter Tyra Martell APRN.LAMINATION 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 Work Phone: [facility] [place] Comment on above: Refill Request (Bupr opion) Start: 05-31-2024 End: 05-31-2024 Telephone encounter Tyra Martell APRN.LAMINATION 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 Work Phone: [facility] [place] Comment on above: Patient Update Start: 05-31-2024 End: 05-31-2024 Office outpatient visit 15 minutes Tyra Martell SEASONER HAND.LAMINATION 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 Work Phone: [facility] [place] Comment on above: ROMIE (obstructive sle ep apnea) (Primary Dx); Chronic low back pain with sciatica, sciatica laterality unspecified, unspecified back pain laterality; Bilateral low back pain, unspecified chronicity, unspecified whether sciatica present; Paroxysmal atrial fibrillation (HCC); Generalized edema; Prediabetes; Skin tear of hand without complication, sequela Start: 05-31-2024 End: 05-31-2024 ambulatory TYRA MARTELL Facility:[facility] Start: 05-21-2024 End: 05-21-2024 Telephone encounter Tyra Martell APRN.LAMINATION 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 Work Phone: [facility] [place] Comment on above: Results Start: 05-20-2024 End: 05-20-2024 Patient encounter procedure Angelic Flores Work Phone: Hematology/Oncology Start: 05-20-2024 End: 05-20-2024 ambulatory Treatment Rm 10 Ezequiel [facility] Work Phone: Hematology/Oncology Comment on above: 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); Metastatic cancer to bone (HCC); 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); 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); 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); Metastatic cancer to bone (HCC) Start: 05-09-2024 End: 05-09-2024 Office outpatient visit 15 minutes Tyra Martell SEASONER HAND.LAMINATION 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 Work Phone: [facility] [place] Comment on above: Paroxysmal atrial fi brillation (HCC) (Primary Dx); Generalized edema; Chronic low back pain with sciatica, sciatica laterality unspecified, unspecified back pain laterality; Iron deficiency anemia due to chronic blood loss Start: 05-09-2024 End: 05-09-2024 ambulatory TYRA A SUPPAN Facility:[facility] Start: 05-02-2024 End: 05-02-2024 Refill Tyra A Rodrigoan SEASONER HAND.LAMINATION 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 Work Phone: [facility] Comment on above: Refill Request Start: 05-02-2024 Non-patient / Non-visit Dr. Richelle Hairston MD -[facility] Work Phone: Start: 05-01-2024 Non-patient / Non-visit Dr. Richelle Hairston MD -[facility] Work Phone: Start: 04-30-2024 ambulatory Tyra Suppan Facil ity:[facility] Start: 04-30-2024 Non-patient / Non-visit Dr. Richelle Hairston MD -[facility] Work Phone: Start: 04-30-2024 End: 05-02-2024 Telephone encounter Tyra Martell SEASONER HAND.LAMINATION 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 Work Phone: [facility] Comment on above: Edema Start: 04-30-2024 End: 05-02-2024 ambulatory Tyra Suppan Facility:[facility] Start: 04-30-2024 End: 05-02-2024 Evaluation and management of inpatient Dr. 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) Start: 04-22-2024 End: 04-22-2024 ambulatory Treatment Rm 7 Ezequiel [facility] Work Phone: Hematology/Oncology Comment on above: 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); Metastatic cancer to bone (HCC); 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); 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) Start: 04-22-2024 End: 04-22-2024 Office outpatient visit 25 minutes Corazon Renteria DO Work Phone: Hematology/Oncology Comment on above: 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); 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); Metastatic cancer to bone (HCC); 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); Macrocytic anemia; Psoriasis; Acquired hypothyroidism Start: 04-22-2024 End: 04-22-2024 ambulatory TYRA A SUPPAN Facility:[facility] Start: 04-15-2024 End: 04-15-2024 ambulatory TYRA A SUPPAN Facility:[facility] Start: 04-15-2024 End: 04-15-2024 ambulatory TYRA A SUPPAN Facility:[facility] Start: 04-15-2024 End: 04-15-2024 Subsequent hospital visit by physician Melyssa Prep [facility] Cat Scan Comment on above: Malignant neoplasm o f unspecified part of unspecified bronchus or lung (HCC) [C34.90] Start: 04-09-2024 End: 04-09-2024 Refill Tyra A Suppan SEASONER HAND.LAMINATION 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 Work Phone: [facility] [place] Comment on above: Refill Request Start: 04-04-2024 End: 04-04-2024 ambulatory Injection Ezequiel [facility] Work Phone: Hematology/Oncology Comment on above: 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); Metastatic cancer to bone (HCC); 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); 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) Start: 04-04-2024 End: 04-04-2024 ambulatory TYRA MARTELL Facility:[facility] Start: 04-03-2024 End: 04-03-2024 ambulatory Treatment Rm 10 [facility] Work Phone: Hematology/Oncology Comment on above: 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); Metastatic cancer to bone (HCC); 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); 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) Start: 04-02-2024 End: 04-02-2024 ambulatory [facility] Work Phone: Hematology/Oncology Comment on above: 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); Metastatic cancer to bone (HCC); 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); 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) Start: 04-01-2024 End: 04-01-2024 Telephone encounter Tyra Martell APRN.LAMINATION 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 Work Phone: [facility] Comment on above: Patient Question Start: 04-01-2024 End: 04-01-2024 ambulatory Treatment [facility]m 9 [facility] Work Phone: Hematology/Oncology Comment on above: 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); Metastatic cancer to bone (HCC); 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); 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) Start: 03-28-2024 End: 03-28-2024 Patient encounter procedure Angelic Flores Work Phone: Hematology/Oncology Start: 03-28-2024 End: 03-28-2024 ambulatory Angelic Flores Work Phone: Hematology/Oncology Comment on above: 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); Malignant neoplasm of unspecified part of unspecified bronchus or lung (HCC); 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) Start: 03-14-2024 End: 03-14-2024 ambulatory Injection [facility] Work Phone: Hematology/Oncology Comment on above: 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); Metastatic cancer to bone (HCC); 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); 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) Start: 03-14-2024 End: 03-15-2024 Telephone encounter Corazon Renteria DO Work Phone: Hematology/Oncology Comment on above: Appointment; Patient Update Start: 03-13-2024 End: 03-13-2024 ambulatory Treatment 6 [facility] Work Phone: Hematology/Oncology Comment on above: 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); Metastatic cancer to bone (HCC); 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); 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) Start: 03-12-2024 End: 03-12-2024 Telephone encounter Tyra Martell APRN.LAMINATION 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 Work Phone: [facility] Comment on above: Results Start: 03-12-2024 End: 03-12-2024 ambulatory Treatment 6 [facility] Work Phone: Hematology/Oncology Comment on above: 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); Metastatic cancer to bone (HCC); 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); 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) Start: 03-11-2024 End: 03-11-2024 ambulatory Treatment 6 [facility] Work Phone: Hematology/Oncology Comment on above: 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); Metastatic cancer to bone (HCC); 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); 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) Start: 03-07-2024 End: 03-07-2024 Telephone encounter Corazon Renteria DO Work Phone: Hematology/Oncology Comment on above: Patient Question Start: 03-05-2024 End: 03-05-2024 ambulatory [facility] Facility:[facility] Start: 03-05-2024 End: 03-05-2024 Subsequent hospital visit by physician Ct [facility] Cat Scan Comment on above: 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] Start: 02-29-2024 End: 02-29-2024 ambulatory TYRA MARTELL Facility:[facility] Start: 02-29-2024 End: 02-29-2024 Office outpatient visit 25 minutes Tyra Martell SEASONER HAND.LAMINATION 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 Work Phone: [facility] Comment on above: Skin infection (Prim margarita Dx); Encounter for screening examination for other mental health and behavioral disorders; Encounter for immunization; Hypertension, essential; Coronary artery calcification seen on CAT scan; 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); Metastatic cancer to bone (HCC); Prediabetes Start: 02-22-2024 End: 02-22-2024 ambulatory [facility] Work Phone: Hematology/Oncology Comment on above: 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); Metastatic cancer to bone (HCC); 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); 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) Start: 02-22-2024 End: 03-01-2024 Telephone encounter Corazon Renteria DO Work Phone: Hematology/Oncology Comment on above: Patient Update Refill Request requesting prescript ion for blood pressure monitor Start: 02-21-2024 End: 02-21-2024 ambulatory Treatment Rm 9 [facility] [employer] Work Phone: Hematology/Oncology Comment on above: 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); Metastatic cancer to bone (HCC); 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); 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) Start: 02-20-2024 End: 02-20-2024 ambulatory [facility]m 3 [facility] Work Phone: Hematology/Oncology Comment on above: 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); Metastatic cancer to bone (HCC); 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); 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) Start: 02-19-2024 End: 02-19-2024 ambulatory [facility]m 9 [facility] Work Phone: Hematology/Oncology Comment on above: 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); Metastatic cancer to bone (HCC); 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); 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) Start: 02-16-2024 End: 02-16-2024 Patient encounter procedure Koffi Huerta APRN.LAMINATION 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 Work Phone: Hematology/Oncology Start: 02-16-2024 End: 02-16-2024 ambulatory Koffi Deanna ROCKWELL.LAMINATION 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 Work Phone: Hematology/Oncology Comment on above: 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); 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); Metastatic cancer to bone (HCC); 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) Start: 02-06-2024 End: 02-06-2024 Telephone encounter Kayli August RN Hematology/Oncology Comment on above: Investigator Welfare - O ther (Follow-up ) Start: 02-02-2024 End: 02-02-2024 Telephone encounter Corazon Renteria DO Work Phone: Hematology/Oncology Comment on above: Medication Problem Start: 02-01-2024 End: 02-01-2024 Telephone encounter Kayli August RN Hematology/Oncology Comment on above: Investigator Welfare - O ther (C1D1 Post Treatment Call ) Start: 02-01-2024 End: 02-01-2024 ambulatory [facility] Work Phone: Hematology/Oncology Comment on above: 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); Metastatic cancer to bone (HCC); 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); 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) Start: 01-31-2024 End: 01-31-2024 ambulatory Treatment Rm 4 [facility] Work Phone: Hematology/Oncology Comment on above: Metastases to the li rosi (HCC) (Primary Dx); Metastatic cancer to bone (HCC); 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); 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) Start: 01-30-2024 End: 01-30-2024 ambulatory Treatment Rm 2 Ezequiel [facility] Work Phone: Hematology/Oncology Comment on above: 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); Metastatic cancer to bone (HCC); 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); 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) Start: 01-29-2024 End: 01-29-2024 Telephone encounter Corazon Renteria DO Work Phone: Hematology/Oncology Comment on above: dental clearance Start: 01-29-2024 End: 01-29-2024 ambulatory Treatment Rm 9 Ezequiel [facility] [employer] Work Phone: Hematology/Oncology Comment on above: 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); Metastatic cancer to bone (HCC); 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); 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) Start: 01-25-2024 End: 01-25-2024 ambulatory TYRA MARTELL Facility:[facility] Start: 01-25-2024 End: 01-25-2024 Office outpatient visit 15 minutes Tyra Martell APRN.LAMINATION 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 Work Phone: [facility] [place] Comment on above: Urinary frequency (P rimary Dx); Hypertension, essential; Benign prostatic hyperplasia with urinary frequency; 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); 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) Start: 01-23-2024 End: 01-23-2024 Telephone encounter Corazon Renteria DO Work Phone: Hematology/Oncology Comment on above: Cough Start: 01-19-2024 End: 01-19-2024 Telephone encounter Tyra Martell SEASONER HAND.LAMINATION 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 Work Phone: [facility] [place] Comment on above: Appointment Start: 01-18-2024 End: 01-18-2024 Telephone encounter Tyra Martell SEASONER HAND.LAMINATION 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 Work Phone: [facility] [place] Comment on above: cancelled apt/resche duled Start: 01-18-2024 End: 01-18-2024 ambulatory Nurse Intm/Famp Triage [facility] Work Phone: Nurse Phone Triage Comment on above: Diarrhea Start: 01-17-2024 End: 01-17-2024 clock repair technician [facility] Work Phone: Hematology/Oncology Comment on above: Encounter for educat ion (Primary Dx) Start: 01-16-2024 End: 01-16-2024 Patient encounter procedure Treatment Rm 15 Ezequiel [facility] Work Phone: Hematology/Oncology Start: 01-16-2024 End: 01-16-2024 ambulatory CORAZON RENTERIA Hematology/Oncology Comment on above: 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); 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); Metastatic cancer to bone (HCC); 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] Start: 01-12-2024 End: 01-14-2024 Telephone encounter Corazon Kerns MD Work Phone: Hematology/Oncology Comment on above: AVS 01/12/24, chemo s tart Start: 01-12-2024 End: 01-12-2024 ambulatory Corazon Renteria DO Work Phone: Hematology/Oncology Comment on above: 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); Liver lesion; Abnormal PET scan of liver; Abnormal PET of right lung; Lung nodule, multiple; Hilar adenopathy; 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); Metastatic cancer to bone (HCC); 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) Start: 01-12-2024 End: 01-12-2024 Patient encounter procedure Corazon Rhonda Renteria DO Work Phone: Hematology/Oncology Start: 01-11-2024 End: 01-11-2024 Telephone encounter Anitra Mcduffie APRN.LAMINATION 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 Work Phone: Pulmonary Medicine Comment on above: Results Start: 01-01-2024 End: 01-01-2024 ambulatory TYRA MARTELL Facility:[facility] Start: 12-26-2023 Orders Only Viktoriya Bella RN [facility] Comment on above: Liver lesion (Primar y Dx) Radiology Pre Proced ure Instructions Start: 12-19-2023 Telephone encounter Anitra yoder APRN.LAMINATION 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 Work Phone: [facility] Start: 12-18-2023 End: 12-18-2023 Office outpatient visit 40 minutes Anitra Mcduffie APRN.LAMINATION 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 Work Phone: Pulmonary Medicine Comment on above: Lung nodule, multipl e (Primary Dx); Former tobacco use; Liver lesion; Abnormal PET scan of liver; Abnormal PET of right lung; Hilar adenopathy Start: 12-15-2023 E-mail encounter fro m caregiver Anitra Mcduffie APRN.LAMINATION 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 Work Phone: [facility] Start: 12-15-2023 Patient encounter procedure Anitra Mcduffie APRN.LAMINATION 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 Work Phone: [facility] Comment on above: Monday appointment Start: 12-12-2023 End: 12-12-2023 Office outpatient visit 15 minutes Tyra Martell SEASONER HAND.LAMINATION 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 Work Phone: [facility] [place] Comment on above: Cellulitis of skin ( Primary Dx); Tobacco abuse Start: 12-11-2023 ambulatory Casey alvarado PA-C Work Phone: [facility] [place] Comment on above: Penis/Scrotum Proble m Start: 12-05-2023 End: 12-05-2023 Subsequent hospital visit by physician Injection [facility] Comment on above: Lung nodules [R91.8] Start: 11-13-2023 Telephone encounter Tyra Martell SEASONER HAND.SOLE TACKER Work Phone: [facility] [place] Comment on above: Results (Stress Test ) Start: 11-13-2023 End: 11-13-2023 Nursing evaluation of patient and report Nurse Card Admin [facility] Work Phone: Cardiology Comment on above: SHAH (dyspnea on exer tion) Start: 11-13-2023 End: 11-13-2023 Subsequent hospital visit by physician Injection Nm [facility] Work Phone: Nuclear Medicine Comment on above: SHAH (dyspnea on exer tion) [R06.09] Start: 11-10-2023 Refill Casey Dean on PA-C Work Phone: [facility] [place] Comment on above: Refill Request Start: 11-07-2023 Telephone encounter Nurse Card Admin [facility] Work Phone: Cardiology Comment on above: Stress Test Instruct ions Start: 11-02-2023 Telephone encounter Anitra yoder SEASONER HAND.LAMINATION 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 Work Phone: Pulmonary Medicine Comment on above: Results Start: 10-30-2023 Refserina Dean on PA-C Work Phone: [facility] [place] Comment on above: Refill Request Start: 10-24-2023 End: 10-24-2023 Subsequent hospital visit by physician [facility] ([facility]) Work Phone: Cat Scan Comment on above: Tobacco use disorder [F17.200] Start: 10-10-2023 Refserina Dean on PA-C Work Phone: [facility] [place] Comment on above: Refill Request Start: 09-29-2023 End: 09-29-2023 Patient encounter procedure Marty Saravia DO Work Phone: Cardiology Comment on above: Coronary artery calc ification seen on CAT scan (Primary Dx); SHAH (dyspnea on exertion); Hypertension, essential; Hyperlipidemia, mixed; ROMIE on CPAP Start: 09-19-2023 Telephone encounter Tyra Martell SEASONER HAND.SOLE TACKER Work Phone: [facility] [place] Start: 09-15-2023 Telephone encounter Tyra Martell SEASONER HAND.SOLE TACKER Work Phone: Family Medicine [place] Start: 09-14-2023 Refill Tyra berrios SEASONER HAND.SOLE TACKER Work Phone: [facility] [place] Comment on above: Refill Request Start: 09-14-2023 End: 09-14-2023 Subsequent hospital visit by physician [facility] Work Phone: Radiology Comment on above: Tobacco abuse [Z72.0 ] Start: 08-31-2023 Telephone encounter Tyra Martell SEASONER HAND.SOLE TACKER Work Phone: Family Medicine [place] Start: 08-29-2023 End: 08-29-2023 Office outpatient visit 40 minutes Tyra Martell SEASONER HAND.SOLE TACKER Work Phone: [facility] [place] Comment on above: Hypertension, essent ial (Primary Dx); Mild episode of recurrent major depressive disorder (HCC); Alcohol dependence with uncomplicated intoxication (HCC); Hyperlipidemia, mixed; Tobacco abuse; Alcohol misuser in household; Pulmonary emphysema, unspecified emphysema type (HCC); Primary hypertension; Pulmonary nodule; Class 3 severe obesity due to excess calories with serious comorbidity in adult, unspecified BMI (HCC); Screening for prostate cancer; SHAH (dyspnea on exertion); Encounter for screening for cardiovascular disorders Start: 06-28-2023 Refill Casey alvarado PA-C Work Phone: [facility] [place] Comment on above: Refill Request Start: 06-13-2023 Telephone encounter Casey JEROMEC Work Phone: Family [facility] [place] Comment on above: Medication Problem Start: 05-01-2023 Orders Only Trisha powers MD Work Phone: General Surgery Comment on above: Gastroesophageal ref lux disease, unspecified whether esophagitis present (Primary Dx) Start: 04-18-2023 End: 03-26-2024 Telephone encounter Trisha Malcolm MD Work Phone: General Surgery Comment on above: 05/19/2023 COLON MED AUDIE Start: 04-18-2023 End: 04-18-2023 Patient encounter procedure Trisha Malcolm MD Work Phone: General Surgery Comment on above: Positive colorectal cancer screening using Cologuard test; Screening for colon cancer; Tobacco use Start: 04-12-2023 Refill Casey Dean on PA-C Work Phone: [facility] [place] Comment on above: Refill Request Start: 03-22-2023 Telephone encounter Casey Hernandez PA-C Work Phone: [facility] [place] Start: 03-21-2023 End: 03-21-2023 Patient encounter procedure Anitra Mcduffie APRN.LAMINATION 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 Work Phone: Pulmonary Medicine Comment on above: Encounter for screen ing for lung cancer (Primary Dx); Tobacco use current Start: 03-20-2023 Refill Casey Dean on PA-C Work Phone: [facility] [place] Comment on above: Refill Request Start: 02-23-2023 End: 02-23-2023 Patient encounter procedure Casey Hernandez PA-C Work Phone: [facility] [place] Comment on above: Encounter for screen ing for lung cancer (Primary Dx); Screening for colon cancer; Hypertension, essential; Hyperlipidemia, mixed; Alcohol dependence with uncomplicated intoxication (HCC); Prediabetes; Incurvated nail; DDD (degenerative disc disease), lumbar; Annual physical exam Start: 01-27-2023 Refill Casey Dean on PA-C Work Phone: [facility] [place] Comment on above: Refill Request Start: 01-26-2023 Telephone encounter Tiffanie Hernandez Start: 11-25-2022 Refill Casey Dean on PA-C Work Phone: [facility] [place] Comment on above: Refill Request Start: 10-26-2022 Telephone encounter Jorge Boland MD Work Phone: [facility] [place] Comment on above: Medication Problem ( Too expensive) Start: 10-25-2022 Refill Casey Dean on PA-C Work Phone: [facility] [place] Comment on above: Refill Request Start: 09-21-2022 Refill Casey Dean on PA-C Work Phone: [facility] [place] Comment on above: Refill Request Start: 09-13-2022 End: 09-13-2022 Patient encounter procedure Casey Hernandez PA-C Work Phone: [facility] [place] Comment on above: Alcohol dependence w ith uncomplicated intoxication (HCC) (Primary Dx); Mild episode of recurrent major depressive disorder (HCC); Hypertension, essential; Prediabetes; Hyperlipidemia, mixed; GERD without esophagitis; Obesity, Class III, BMI 40-49.9 (morbid obesity) (HCC) Start: 08-22-2022 Refill Casey Dean on PA-C Work Phone: [facility] [place] Comment on above: Refill Request Start: 08-16-2022 End: 08-16-2022 Patient encounter procedure Casey Hernandez PA-C Work Phone: [facility] [place] Comment on above: Alcohol dependence w ith uncomplicated intoxication (HCC) (Primary Dx); Mild episode of recurrent major depressive disorder (HCC) Start: 08-11-2022 Telephone encounter Casey Hernandez PA-C Work Phone: [facility] [place] Comment on above: Patient Question Start: 07-16-2022 Refill Casey Dean on PA-C Work Phone: [facility] [place] Comment on above: Refill Request Start: 07-01-2022 Refill Casey Dean on PA-C Work Phone: [facility] [place] Comment on above: Refill Request Start: 05-24-2022 Refill Casey Dean on PA-C Work Phone: [facility] [place] Comment on above: Refill Request Start: 04-19-2022 Refill Casey Dean on PA-C Work Phone: [facility] [place] Comment on above: Refill Request Start: 03-22-2022 Telephone encounter Casey Hernandez PA-C Work Phone: [facility] [place] Comment on above: Results Start: 03-15-2022 Telephone encounter Casey Hernandez PA-C Work Phone: [facility] [place] Comment on above: Additional Labs Refill Request Start: 03-14-2022 Telephone encounter Casey Hernandez PA-C Work Phone: [facility] [place] Comment on above: Orders Start: 02-28-2022 Telephone encounter Casey Hernandez PA-C Work Phone: [facility] [place] Comment on above: Forms Start: 02-25-2022 Refill Casey Dean on PA-C Work Phone: [facility] [place] Comment on above: Refill Request Start: 02-11-2022 Telephone encounter Casey Hernandez PA-C Work Phone: [facility] [place] Comment on above: Medication Problem Start: 02-09-2022 Telephone encounter Casey Hernandez PA-C Work Phone: [facility] [place] Comment on above: Medication Problem Start: 02-08-2022 End: 02-08-2022 ambulatory Respiratory Therapist [facility] Work Phone: Pulmonary Medicine Comment on above: Spirometry Start: 02-08-2022 End: 02-08-2022 Patient encounter procedure Respiratory Therapist [facility] Work Phone: [facility] Start: 02-07-2022 Telephone encounter Jorge Boland MD Work Phone: [facility] [place] Comment on above: cost of inhaler Start: 02-01-2022 End: 02-01-2022 Patient encounter procedure Casey Hernandez PA-C Work Phone: [facility] [place] Comment on above: Hypertension, essent ial (Primary Dx); Prediabetes; Hyperlipidemia, mixed; GERD without esophagitis; Overweight; Alcohol dependence with uncomplicated intoxication (HCC); Tobacco use disorder; Mild episode of recurrent major depressive disorder (HCC); SHAH (dyspnea on exertion); ROMIE (obstructive sleep apnea); Need for vaccination; Screening for colon cancer; Change in bowel habit; Incurvated nail Start: 01-18-2022 Refill Casey Dean on PA-C Work Phone: [facility] [place] Comment on above: Refill Request (SEE RX NOTES) Start: 01-11-2022 Telephone encounter Casey Hernandez PA-C Work Phone: [facility] [place] Comment on above: Orders Start: 11-02-2021 Refill Casey Dean on PA-C Work Phone: [facility] [place] Comment on above: Refill Request (SEE RX NOTES) Start: 09-27-2021 End: 09-27-2021 Subsequent hospital visit by physician Xr [facility] [employer] Work Phone: Radiology Comment on above: SHAH (dyspnea on exer tion) [R06.00] Start: 09-24-2021 Telephone encounter Casey Hernandez PA-C [facility] Phone: [facility] Comment on above: Results Start: 09-09-2021 Telephone encounter Casey Hernandez PA-C Work Phone: [facility] Comment on above: Patient Request Start: 08-30-2021 Refill Casey Dean on PA-C Work Phone: [facility] [place] Comment on above: Refill Request Start: 09-03-2020 End: 09-03-2020 Subsequent hospital visit by physician Xr [facility] [employer] Work Phone: Radiology Comment on above: Thumb weakness [R29. 898] Procedures Date Procedure Procedure Detail Performing Clinician Start: 12-16-[address] atten uation skull base mid-thigh Corazon Renteria DO Work Phone: Start: 12-16-2024 Gluc bld gluc mntr d ev cleared fda spec home use [facility] Provider Start: 09-24-2024 Lipid 1996 panel - S cecily or Plasma Corazon Masci DO Work Phone: Start: 05-01-2024 Measurement of occul t blood in stool specimen using immunoassay Dr. Jay Beckett DO Work Phone: Start: 04-30-2024 X-ray of chest, PA a nd lateral views Dr. Jay Beckett DO Work Phone: Start: 02-29-2024 RSV VACCINE, BIVALEN T (ABRYSVO) Tyra Ellis Suppflor SEASONER HAND.LAMINATION 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 Work Phone: Start: 01-25-2024 Urnls dip stick/tabl et rgnt auto w/o microscopy Tyra Ellis Suppflor SEASONER HAND.LAMINATION 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 Work Phone: Start: 01-12-2024 Mri brain brain stem w/o w/contrast material Corazon Ellis Joellegraciela DO Work Phone: Start: 12-05-2023 Gluc bld gluc mntr d ev cleared fda spec home use [facility] Provider Start: 11-13-2023 Myocardial spect mul tiple studies Tyra Martell SEASONER HAND.SOLE TACKER Work Phone: Start: 08-29-2023 Ecg routine ecg w/le ast 12 lds i&r only Tyra A Archana SEASONER HAND.SOLE TACKER Work Phone: Start: 08-29-2023 Lipid 1996 panel - S cecily or Plasma Tyra Suppan SEASONER HAND.SOLE TACKER Work Phone: Start: 05-19-2023 Colonoscopy NA David PAREKH-Chanelle Work Phone: Start: 10-05-2022 Lipid 1996 panel - S cecily or Plasma NA Hernandez PA-C Work Phone: Start: 02-08-2022 Plethysmography lung volumes w/wo airway resist Casey Hernandez PA-C Work Phone: Start: 09-27-2021 Radiologic exam ches t 2 views Casey Hernandez PA-C Work Phone: Start: 09-03-2020 Radex fingr minimum 2 views Casey Hernandez PA-C Work Phone: Start: 09-16-2016 Beatriz Hernandez PA-C Work Phone: Plan of Treatment Date Care Activity Detail Author Start: 09-24-2029 Lipid panel Lipid Screening [facility] Start: 08-28-2028 Lipid panel Lipid Screening [facility] Start: 08-28-2028 Prostate specific antigen measurement Prostate Cancer Screening Discussion [facility] Start: 08-08-2028 Urine microalbumin profile [facility] Start: 12-31-2027 Diabetes Screening Diabetes Screenin g [facility] Start: 12-04-2027 Diabetes Screening Diabetes Screenin g [facility] Start: 11-05-2027 Diabetes Screening Diabetes Screenin g [facility] Start: 10-08-2027 Diabetes Screening Diabetes Screenin g [facility] Start: 10-06-2027 Lipid 1996 panel - S cecily or Plasma Lipid Screening [facility] Start: 10-06-2027 Lipid panel Lipid Screening [facility] Start: 10-06-2027 LIPID SCREEN LIPID SCREEN [facility] Start: 09-10-2027 Diabetes Screening Diabetes Screenin g [facility] Start: 08-13-2027 Diabetes Screening Diabetes Screenin g [facility] Start: 07-10-2027 Diabetes Screening Diabetes Screenin g [facility] Start: 06-17-2027 Diabetes Screening Diabetes Screenin g [facility] Start: 05-20-2027 Diabetes Screening Diabetes Screenin g [facility] Start: 04-25-2027 Diabetes Screening Diabetes Screenin g [facility] Start: 04-22-2027 Diabetes Screening Diabetes Screenin g [facility] Start: 03-28-2027 Diabetes Screening Diabetes Screenin g [facility] Start: 03-15-2027 LIPID SCREEN LIPID SCREEN [facility] Start: 03-15-2027 PROSTATE CANCER SCREENING DISCUSSION PROSTATE CANCER SCREENING DISCUSSION [facility] Start: 03-15-2027 Prostate specific antigen measurement Prostate Cancer Screening Discussion [facility] Start: 03-11-2027 Diabetes Screening Diabetes Screenin g [facility] Start: 02-15-2027 Diabetes Screening Diabetes Screenin g [facility] Start: 01-28-2027 Diabetes Screening Diabetes Screenin g [facility] Start: 01-15-2027 Diabetes Screening Diabetes Screenin g [facility] Start: 01-11-2027 Diabetes Screening Diabetes Screenin g [facility] Start: 08-28-2026 Diabetes Screening Diabetes Screenin g [facility] Start: 03-13-2026 Cologuard (FIT-DNA) Cologuard (FIT-D NA) [facility] Start: 03-13-2026 Colorectal Cancer Screening Colorectal Cancer Screening [facility] Start: 03-13-2026 Screening for malign ant neoplasm of colon [facility] Start: 03-03-2026 LIPID SCREEN LIPID SCREEN [facility] Start: 10-15-2025 Annual PCP 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 rosemarie Disease Visit Annual PCP Team Chronic Disease Visit [facility] Start: 10-05-2025 DIABETES SCREEN DIABETES SCREEN [facility] Start: 10-05-2025 Diabetes Screening Diabetes Screenin g [facility] Start: 09-24-2025 Hepatitis B surface antibody level LDL Cholesterol [facility] Start: 05-31-2025 Annual PCP 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 rosemarie Disease Visit Annual PCP Team Chronic Disease Visit [facility] Start: 05-31-2025 BP Controlled (<130/80) BP Controlle d (<130/80) [facility] Start: 05-20-2025 BP Controlled (<130/80) BP Controlle d (<130/80) [facility] Start: 05-09-2025 BP Controlled (<130/80) BP Controlle d (<130/80) [facility] Start: 03-15-2025 DIABETES SCREEN DIABETES SCREEN [facility] Start: 02-28-2025 Anxiety Screening Anxiety Screening [facility] Start: 02-28-2025 BP Controlled (<130/80) BP Controlle d (<130/80) [facility] Start: 02-28-2025 Covid-19 Vaccine ( season) Covid-19 Vaccine () [facility] Comment on above: Postponed from 01/20 (Declined at this time) Start: 02-28-2025 Shingrix Vaccine (1 of 2) Shingrix Vaccine (1 of 2) [facility] Comment on above: Postponed from 03/06 (Declined at this time) Start: 02-24-2025 End: 02-24-2025 ambulatory [facility] Comment on above: (SO)CBC/CMP(S)/MG(S) * OV/LABS EARLY/CHEMO TODAY* MASCI QMO TECENTRIQ/LAB & OV EARLY* Q3MO ZOMETA DUE AGAIN 04/21 OV/LABS EARLY/CHEMO TODAY* MASCI -MON APPTS AFTER 10 QMO TECENTRIQ/LAB & OV EARLY* Q3MO ZOMETA DUE AGAIN 04/21 -MON APPTS AFTER 10 Start: 02-14-2025 End: 02-14-2025 Patient encounter procedure 02/14/2025 8:40 AM EDT Office Visit Family [facility] [address] [place] [address] Tyra Martell APRN.LAMINATION 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 [address] [place], [place] [id number] yearly physical & 4 month follow up-has forms to fill out for work [facility] Comment on above: yearly physical & 4 month follow up-has forms to fill out for work Start: 01-27-2025 End: 01-27-2025 ambulatory [facility] Comment on above: (SO)CBC/CMP(S)/MG(S) * OV/LABS EARLY/CHEMO TODAY* MASCI Q3MO ZOMETA/QMO TECE NTRIQ/LAB & OV EARLY* Q3MO ZOMETA DUE AGAIN 04/21 OV/LABS EARLY/CHEMO TODAY* MASCI - MON APPTS AFTER 10 Q3MO ZOMETA/QMO TECE NTRIQ/LAB & OV EARLY* -MON APPTS AFTER 10- Q3MO ZOMETA DUE AGAIN 04/21 Start: 01-20-2025 Influenza vaccination [facility] Start: 01-15-2025 BP Controlled (<130/80) BP Controlle d (<130/80) [facility] Start: 12-30-2024 End: 12-30-2024 ambulatory [facility] Comment on above: (SO)CBC/CMP(S)/MG(S) * OV/LABS EARLY/CHEMO TODAY* QMO TECENTRIQ/LAB & OV EARLY* Q3MO ZOMETA DUE AGAIN 01/27 OV/LABS EARLY/CHEMO TODAY/PET SCAN 12/16* OV/LABS EARLY/CHEMO TODAY/PET SCAN 12/16* MAS[facility] Start: 12-17-2024 BP Controlled (<130/80) BP Controlle d (<130/80) [facility] Start: 12-16-2024 End: 12-16-2024 Patient encounter procedure Mobile PET CT Comment on above: NM PET/CT SKULL-THIG H SUBSEQUENT called office new or daysi NM PET/CT SKULL-THIGH SUBSEQUENT Start: 12-11-2024 BP Controlled (<130/80) BP Controlle d (<130/80) [facility] Start: 12-03-2024 End: 12-03-2024 ambulatory [facility] Comment on above: (SO)CBC/CMP(S)/MG(S) * OV/LABS EARLY/CHEMO TODAY* masci QMO TECENTRIQ/LAB & OV EARLY* Q3MO ZOMETA DUE AGAIN 01/27 Start: 12-02-2024 End: 12-02-2024 ambulatory [facility] Comment on above: (SO)CBC/CMP(S)/MG(S) * OV/LABS EARLY/CHEMO TODAY* masci QMO TECENTRIQ/LAB & OV EARLY* Q3MO ZOMETA DUE AGAIN 01/27 Start: 11-18-2024 End: 02-17-2025 Hemoglobin A1c in Blood HEMOGLOBIN A1C Lab Routine Blood glucose elevated Expected: 11/18/2024, Expires: 02/17/2025 [facility] Work Phone: Comment on above: Expected: 11/18/2024 , Expires: 02/17/2025 Start: 11-18-2024 Influenza vaccination Influenza Vacc ine (#1) [facility] Comment on above: Postponed from 01/20 (Declined at this time) Start: 11-18-2024 End: 11-18-2024 Patient encounter procedure Mobile PET CT Comment on above: [C78.7]; Metastatic cancer to bone (HCC) [C79.51]; 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] NEEDS REPEAT CMP WHI LE AT GOTTLIEB/[C78.7]; Metastatic cancer to bone (HCC) [C79.51]; 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] NEEDS REPEAT BMP WHI LE AT GOTTLIEB/[C78.7]; Metastatic cancer to bone (HCC) [C79.51]; 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] Start: 11-15-2024 End: 11-15-2024 Patient encounter procedure 11/15/2024 8:00 AM EDT Office Visit Family [facility] [place] [address] [place] [id number] Tyra Martell APRN.LAMINATION 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 [address] [place] [id number] 1 month follow up [facility] [place] Comment on above: 1 month follow up Start: 11-05-2024 End: 02-04-2025 Hemoglobin [Mass/volume] in Blood HEMOGLOBIN Lab Routine Prediabetes Expected: 11/05/2024, Expires: 02/04/2025 [facility] Work Phone: Comment on above: Expected: 11/05/2024 , Expires: 02/04/2025 Start: 11-04-2024 End: 11-04-2024 ambulatory [facility] Comment on above: (SO)CBC/CMP(S)/MG(S) * OV/LABS EARLY/CHEMO TODAY* QMO TECENTRIQ/LAB & OV EARLY/AUTH EXP 12/11/24* Q3MO ZOMETA DUE AGAIN 01/27 QMO TECENTRIQ/LAB & OV EARLY* Q3MO ZOMETA DUE AGAIN 01/27 Start: 10-15-2024 End: 10-15-2024 Patient encounter procedure Cat Scan Comment on above: Malignant neoplasm o f upper lobe of right lung (HCC) [C34.11] followup Start: 10-12-2024 End: 10-12-2024 ambulatory 10/12/2024 8:30 AM EDT Results Only [facility] [address] [place] [address] 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] [facility] Comment on above: 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] Start: 10-09-2024 End: 10-09-2025 CT Abdomen and Pelvis W contrast IV CT ABD/PEL W IVCON Radiology Routine Malignant neoplasm of unspecified part of unspecified bronchus or lung (HCC) Expected: 10/09/2024 (Approximate), Expires: 10/09/2025 [facility] Work Phone: Comment on above: Expected: 10/09/2024 (Approximate), Expires: 10/09/2025 Start: 10-07-2024 End: 01-06-2025 Thyrotropin [Units/volume] in Serum or Plasma [facility] Work Phone: Comment on above: Expected: 10/07/2024 , Expires: 01/06/2025 Start: 10-07-2024 End: 10-07-2024 ambulatory [facility] Comment on above: (SO)CBC/CMP(S)/MG(S) * OV/LABS EARLY/CHEMO TODAY* Q3MO ZOMETA/AUTH EXP ?/QMO TECENTRIQ/LAB & OV EARLY/AUTH EXP 12/11/24* Start: 09-28-2024 BP Controlled (<130/80) BP Controlle d (<130/80) [facility] Start: 09-27-2024 End: 09-27-2024 Patient encounter procedure 09/27/2024 8:00 AM EDT Office Visit [facility] [address] [place] [address] Tyra Martell, SEASONER HAND.LAMINATION 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 [address] [place], [place] [id number] 4 mo follow up [facility] Comment on above: 4 mo follow up Start: 09-13-2024 Screening for malign ant neoplasm of lung Lung Cancer Screening [facility] Start: 09-09-2024 End: 09-09-2024 ambulatory [facility] Comment on above: (SO)CBC/CMP(S)/MG(S) * OV/LABS EARLY/CHEMO TODAY* QMO TECENTRIQ/LAB & OV EARLY/AUTH EXP 12/11/24* Start: 08-28-2024 BP Controlled (<130/80) BP Controlle d (<130/80) [facility] Start: 08-28-2024 Hepatitis B surface antibody level LDL Cholesterol [facility] Start: 08-12-2024 End: 08-12-2024 Patient encounter procedure 08/12/2024 2:00 PM EDT Office Visit Family [facility] [place] [address] [place] [address] Tyra Martell APRN.LAMINATION 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 [address] [place] [address] hiatal hernia [facility] Comment on above: hiatal hernia Start: 08-12-2024 End: 08-12-2024 ambulatory [facility] Comment on above: (SO)CBC/CMP(S)/MG(S) * OV/LABS EARLY/CHEMO TODAY* QMO TECENTRIQ/LAB & OV EARLY/AUTH EXP ?* QMO TECENTRIQ/LAB & OV EARLY/AUTH EXP 12/11/24* Start: 07-17-2024 End: 07-17-2024 ambulatory 07/17/2024 1:30 PM EST [facility]On[facility] [address] [place] [address] 2nd Hematology/Oncology Comment on above: 2nd Start: 07-17-2024 End: 07-17-2024 Patient encounter procedure Neurology Comment on above: ROMIE (obstructive sle ep apnea) [G47.33] DME? PAP 2019. Start: 07-15-2024 End: 07-15-2024 ambulatory [facility] Comment on above: (SO)CBC/CMP(S)/MG(S) * OV/LABS EARLY/CHEMO TODAY* QMO TECENTRIQ/LAB & OV EARLY/AUTH EXP ?* QMO TECENTRIQ/LAB & OV EARLY/AUTH EXP 12/11/24* OV/LABS 07/10/CHEMO T ALEXANDER* Q3MO ZOMETA/AUTH EXP ?/QMO TECENTRIQ/LAB & OV EARLY/AUTH EXP 12/11/24* Start: 07-10-2024 End: 07-10-2024 ambulatory 07/10/2024 8:30 AM EST [facility] [address] [place] [address] (SO)CBC/CMP(S)/MG(S)* [facility] Comment on above: (SO)CBC/CMP(S)/MG(S) * Start: 07-10-2024 End: 07-10-2024 Patient encounter procedure Cat Scan Comment on above: 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] Start: 06-17-2024 End: 06-17-2024 ambulatory [facility] Comment on above: (SO)CBC/CMP(S)/MG(S) * OV/LABS EARLY/CHEMO TODAY* QMO TECENTRIQ/LAB & OV EARLY/AUTH EXP ?* QMO TECENTRIQ/LAB & OV EARLY/AUTH EXP 12/11/24* Start: 06-10-2024 DIABETES SCREEN DIABETES SCREEN [facility] Start: 05-31-2024 End: 05-31-2024 Patient encounter procedure [facility] Comment on above: follow up 3 months Start: 05-22-2024 Advance Directive Discussion Advance Directive Discussion [facility] Start: 05-21-2024 Advance Directive Discussion Advance Directive Discussion [facility] Comment on above: Postponed from 05/22 (Declined at this time) Start: 05-20-2024 End: 05-20-2024 ambulatory [facility] Comment on above: (SO)CBC/CMP(S)/MG(S) * OV/LABS EARLY/CHEMO TODAY* MASCI QMO TECENTRIQ/LAB & OV EARLY/AUTH EXP ?* QMO TECENTRIQ/LAB & OV EARLY/AUTH EXP 05/21/24* Start: 05-19-2024 Screening for malign ant neoplasm of colon Colonoscopy [facility] Start: 05-12-2024 End: 08-11-2024 Thyrotropin [Units/volume] in Serum or Plasma THYROID STIMULATING HORMONE Lab Routine Acquired hypothyroidism Expected: 05/12/2024, Expires: 08/11/2024 [facility] Work Phone: Comment on above: Expected: 05/12/2024 , Expires: 08/11/2024 Start: 05-11-2024 Screening for malign ant neoplasm of lung Lung Cancer Screening [facility] Start: 05-09-2024 End: 08-08-2024 CBC W Auto Differential panel - Blood COMPLETE BLOOD COUNT AND DIFFERENTIAL Lab Routine Iron deficiency anemia due to chronic blood loss Expected: 05/09/2024, Expires: 08/08/2024 [facility] Comment on above: Expected: 05/09/2024 , Expires: 08/08/2024 Start: 05-09-2024 End: 08-08-2024 Magnesium [Mass/volume] in Serum or Plasma MAGNESIUM Lab Routine Paroxysmal atrial fibrillation (HCC) Generalized edema Expected: 05/09/2024, Expires: 08/08/2024 [facility] Comment on above: Expected: 05/09/2024 , Expires: 08/08/2024 Start: 05-09-2024 End: 08-08-2024 Renal function 2000 panel - Serum or Plasma RENAL FUNCTION PANEL Lab Routine Paroxysmal atrial fibrillation (HCC) Generalized edema Expected: 05/09/2024, Expires: 08/08/2024 [facility] Work Phone: Comment on above: Expected: 05/09/2024 , Expires: 08/08/2024 Start: 05-09-2024 End: 05-09-2024 Patient encounter procedure 05/09/2024 1:20 PM EST Office Visit [facility] [address], [place] [id number] Tyra Martell APRN.[facility] [address] [place], [place] [id number] Hospital follow up 04/30-05/02 WC-swelling in hands, legs and feet. Was prescribed elequois 5 mg and lasix 40 mg while in the hospital [facility] Comment on above: Hospital follow up 1 07/01-05/02 WC-swelling in hands, legs and feet. Was prescribed elequois 5 mg and lasix 40 mg while in the hospital Start: 05-02-2024 Patient discharge [facility] Start: 05-01-2024 [facility] Start: 04-30-2024 Care regimes management [facility] Start: 04-30-2024 Notification of physician [facility] Start: 04-30-2024 [facility] Start: 04-30-2024 Following clinical pathway protocol [facility] Start: 04-30-2024 Ambulation without limitation [facility] Start: 04-30-2024 Assessment of risk o f venous thromboembolism [facility] Start: 04-30-2024 Insertion of cathete r into peripheral vein [facility] Start: 04-30-2024 Measuring intake and output [facility] Start: 04-30-2024 Providing care accor ding to standard [facility] Start: 04-30-2024 [facility] Start: 04-30-2024 Admission procedure [facility] Start: 04-30-2024 Patient referral to dietitian [facility] Start: 04-24-2024 End: 04-24-2024 ambulatory Hematology/Oncology Comment on above: 2nd Start: 04-22-2024 End: 07-22-2024 Cobalamin (Vitamin B12) [Mass/volume] in Serum or Plasma VITAMIN B12 Lab Routine 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) Metastatic cancer to bone (HCC) 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) Macrocytic anemia Expected: 04/22/2024, Expires: 07/22/2024 [facility] Work Phone: Comment on above: Expected: 04/22/2024 , Expires: 07/22/2024 Start: 04-22-2024 End: 07-22-2024 Folate [Mass/volume] in Serum or Plasma FOLATE, SERUM Lab Routine 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) Metastatic cancer to bone (HCC) 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) Macrocytic anemia Expected: 04/22/2024, Expires: 07/22/2024 [facility] Comment on above: Expected: 04/22/2024 , Expires: 07/22/2024 Start: 04-22-2024 End: 07-22-2024 Methylmalonate [Moles/volume] in Serum or Plasma METHYLMALONIC ACID Lab Routine 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) Metastatic cancer to bone (HCC) 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) Macrocytic anemia Expected: 04/22/2024, Expires: 07/22/2024 [facility] Comment on above: Expected: 04/22/2024 , Expires: 07/22/2024 Start: 04-22-2024 End: 07-22-2024 RETICULOCYTE COUNT RETICULOCYTE COUNT Lab Routine 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) Metastatic cancer to bone (HCC) 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) Macrocytic anemia Expected: 04/22/2024, Expires: 07/22/2024 [facility] Comment on above: Expected: 04/22/2024 , Expires: 07/22/2024 Start: 04-22-2024 End: 04-22-2024 jennifer Carbajal [facility] Comment on above: (SO)CBC/CMP(S)/MG(S) * OV/LABS EARLY/CHEMO TODAY* QMO TECENTRIQ/LAB & OV EARLY/AUTH EXP ?* QMO TECENTRIQ/LAB & OV EARLY/AUTH EXP 05/21/24* Start: 04-18-2024 End: 04-27-2025 CT Abdomen and Pelvis W contrast IV CT ABD/PEL W IVCON Radiology Routine Malignant neoplasm of unspecified part of unspecified bronchus or lung (HCC) Expected: 04/18/2024 (Approximate), Expires: 04/27/2025 [facility] Work Phone: Comment on above: Expected: 04/18/2024 (Approximate), Expires: 04/27/2025 Start: 04-18-2024 End: 04-27-2025 CT Chest W contrast IV CT CHEST W IVCON Radiology Routine Malignant neoplasm of unspecified part of unspecified bronchus or lung (HCC) Expected: 04/18/2024 (Approximate), Expires: 04/27/2025 [facility] Comment on above: Expected: 04/18/2024 (Approximate), Expires: 04/27/2025 Start: 04-15-2024 End: 04-15-2024 Patient encounter procedure Cat Scan Comment on above: Malignant neoplasm o f unspecified part of unspecified bronchus or lung (HCC) [C34.90] Start: 04-04-2024 End: 04-04-2024 ambulatory Hematology/Oncology Comment on above: D4 NEULASTA/AUTH EXP 12/10/24* D4 NEULASTA/AUTH EXP 05/21/24* Start: 04-03-2024 End: 04-03-2024 ambulatory Hematology/Oncology Comment on above: D3 ETOP/AUTH EXP 11/20 07/16* D3 ETOP/AUTH EXP * Start: 04-02-2024 End: 04-02-2024 ambulatory Hematology/Oncology Comment on above: D2 ETOP/AUTH EXP 11/20 07/16* D2 ETOP/AUTH EXP * Start: 04-01-2024 End: 04-01-2024 ambulatory Hematology/Oncology Comment on above: Q3WK TECENTRIC/CARBO /ETOP/4-4/LAB&OV 03/28/AUTH EXP 12/10/24* OV EVERY OTHER CYCLE- Q3MO ZOMETA DUE 04/24/24 Q3WK TECENTRIC/CARBO /ETOP/4-4/LAB&OV 03/28/AUTH EXP 05/21/24* OV EVERY OTHER CYCLE- Q3MO ZOMETA DUE 04/24/24 Start: 03-28-2024 End: 03-28-2024 ambulatory [facility] Comment on above: (SO)CBC/CMP(S)/MG(S) * OV/LAB EARLY/CHEMO 06/01* (MASCI) Start: 03-28-2024 End: 03-28-2024 ambulatory [facility] Comment on above: (SO)CBC/CMP(S)/MG(S) * OV/LAB EARLY/CHEMO 06/01* OV EVERY OTHER CYCLE-Q3MO ZOMETA DUE 04/24/24 Start: 03-21-2024 BP Controlled (<130/80) BP Controlle d (<130/80) [facility] Start: 03-14-2024 End: 03-14-2024 ambulatory Hematology/Oncology Comment on above: D4 NEULASTA/AUTH EXP ?* D4 NEULASTA/AUTH EXP 12/10/24* CBC(?TX)/D4 NEULASTA /AUTH EXP 12/10/24* Start: 03-13-2024 End: 03-13-2024 ambulatory Hematology/Oncology Comment on above: D3 ETOP/AUTH EXP?* D3 ETOP/AUTH EX 12/10* Start: 03-12-2024 End: 03-12-2024 ambulatory Hematology/Oncology Comment on above: D2 ETOP/AUTH EXP?* D2 ETOP/AUTH EXP 11/20 07/16* Start: 03-11-2024 End: 03-11-2024 ambulatory [facility] Comment on above: CBC/CMP/MAG* Q3WK TECENTRIC/CARBO /ETOP/3-4/LAB EARLY/AUTH EXP?* THEN QMO TECENTRIC - OV EVERY OTHER CYCLE Q3WK TECENTRIC/CARBO /ETOP/3-4/LAB EARLY/AUTH EXP 12/10/24* (SO)CBC/CMP(S)/MG(S) * Start: 03-05-2024 End: 03-05-2024 Patient encounter procedure Cat Scan Comment on above: ABD / PEL / CHEST Start: 02-29-2024 End: 05-30-2024 Hemoglobin A1c in Blood HEMOGLOBIN A1C Lab Routine Prediabetes Expected: 02/29/2024, Expires: 05/30/2024 [facility] Work Phone: Comment on above: Expected: 02/29/2024 , Expires: 05/30/2024 Start: 02-29-2024 End: 05-30-2024 Magnesium [Mass/volume] in Serum or Plasma MAGNESIUM Lab Routine Hypertension, essential Expected: 02/29/2024, Expires: 05/30/2024 [facility] Comment on above: Expected: 02/29/2024 , Expires: 05/30/2024 Start: 02-29-2024 End: 05-30-2024 Thyrotropin [Units/volume] in Serum or Plasma THYROID STIMULATING HORMONE Lab Routine 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) Metastatic cancer to bone (HCC) Expected: 02/29/2024, Expires: 05/30/2024 [facility] Comment on above: Expected: 02/29/2024 , Expires: 05/30/2024 Start: 02-29-2024 End: 05-30-2024 Thyroxine (T4) free [Mass/volume] in Serum or Plasma T4 FREE/FREE THYROXINE Lab Routine 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) Metastatic cancer to bone (HCC) Expected: 02/29/2024, Expires: 05/30/2024 [facility] Comment on above: Expected: 02/29/2024 , Expires: 05/30/2024 Start: 02-29-2024 End: 02-29-2024 Patient encounter procedure [facility] [place] Comment on above: 6 mo follow up - CPE Start: 02-26-2024 End: 02-26-2024 Patient encounter procedure 02/26/2024 8:00 AM EDT Office Visit [facility] [address] [place] [address] Tyra Martell APRN.LAMINATION 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 [address] [facility] [place] [id number] Annual Well Exam [facility] Comment on above: Annual Well Exam Start: 02-24-2024 Annual PCP 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 Disease Visit Annual PCP Team Chronic Disease Visit [facility] Start: 02-24-2024 BP Controlled (<130/80) BP Controlle d (<130/80) [facility] Start: 02-24-2024 Covid-19 Vaccine () Covid-19 Vaccine () [facility] Comment on above: Postponed from 01/20 (Declined at this time) Start: 02-24-2024 Covid-19 Vaccine (5 - Pfizer series) Covid-19 Vaccine (5 - Pfizer series) [facility] Comment on above: Postponed from 07/01 (Declined at this time) Start: 02-22-2024 End: 02-22-2024 ambulatory Hematology/Oncology Comment on above: D4 NEULASTA/AUTH EXP ?* D4 NEULASTA/AUTH EXP 12/10/24* Start: 02-21-2024 End: 02-21-2024 ambulatory Hematology/Oncology Comment on above: D3 ETOP/AUTH EXP?* D3 ETOP/AUTH EXP 11/20 07/16* Start: 02-20-2024 End: 02-20-2024 ambulatory Hematology/Oncology Comment on above: D2 ETOP/AUTH EXP?* D2 ETOP/AUTH EXP 11/20 07/16* Start: 02-19-2024 End: 02-19-2024 ambulatory Hematology/Oncology Comment on above: Q3WK TECENTRIC/CARBO /ETOP/2-4/LAB&OV 02/15/AUTH EXP?* THEN QMO TECENTRIC - OV EVERY OTHER CYCLE Q3WK TECENTRIC/CARBO /ETOP/2-4/LAB&OV 02/15/AUTH EXP 12/10/24* OV EVERY OTHER CYCLE Start: 02-16-2024 End: 02-16-2024 ambulatory [facility] Comment on above: CBC/CMP/MAG OV/LAB EARLY/CHEMO * OV EVERY OTHER CYCLE CBC/CMP/MAG* (SO)CBC/CMP(S)/MG(S) * Start: 02-01-2024 End: 02-01-2024 ambulatory Hematology/Oncology Comment on above: D4 NEULASTA/AUTH EXP ?* D4 NEULASTA/AUTH EXP 12/10/24* Start: 01-31-2024 End: 01-31-2024 ambulatory Hematology/Oncology Comment on above: D3 ETOP/AUTH EXP?* D3 ETOP/AUTH EXP 11/20 07/16* START Q3MO ZOMETA/AU TH EXP ?/D3 ETOP/AUTH EXP 12/10/24* Start: 01-30-2024 End: 01-30-2024 ambulatory Hematology/Oncology Comment on above: D2 ETOP/AUTH EXP?* D2 ETOP/AUTH EXP 11/20 07/16* D2 ETOP + MAG 2g/AUT H EXP 12/10/24* Start: 01-29-2024 End: 01-29-2024 ambulatory [facility] Comment on above: CBC/CMP/MAG/TSH/T4/L DH/Uric acid/Cortisol. STRAIGHTBACK START Q 3WK TECENTRIC/CARBO/ETOP/1-4/LAB EARLY/AUTH EXP?* THEN QMO TECENTRIC - OV EVERY OTHER CYCLE CBC/CMP/MAG/TSH/T4/L DH/Uric acid/Cortisol* START Q3WK TECENTRIC /CARBO/ETOP/1-4/LAB EARLY/AUTH EXP?* THEN QMO TECENTRIC - OV EVERY OTHER CYCLE START Q3WK TECENTRIC /CARBO/ETOP/1-4/LAB EARLY/AUTH EXP 12/10/24* Start: 01-25-2024 End: 01-25-2024 Patient encounter procedure 01/25/2024 9:20 AM EDT Office Visit [facility] [place] [address] [place] [address] Tyra Martell APRN.LAMINATION 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 [address] [place] [address] Urinary Frequency; Denies other urinary symptoms [facility] Comment on above: Urinary Frequency; D enies other urinary symptoms Start: 01-21-2024 Covid-19 Vaccine () Covid-19 Vaccine () [facility] Start: 01-21-2024 Covid-19 Vaccine () Covid-19 Vaccine () [facility] Start: 01-21-2024 Influenza vaccination [facility] Start: 01-19-2024 End: 01-19-2024 Patient encounter procedure 01/19/2024 1:20 PM EDT Office Visit [facility] [address] [place] [address] Tyra Martell APRN.LAMINATION 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 [address] [place] [address] Urinary Retention/Symptoms [facility] Comment on above: Urinary Retention/Sy mptoms Start: 01-18-2024 End: 01-18-2024 Patient encounter procedure 01/18/2024 11:00 AM EDT Office Visit [facility] [address] [place] [address] Tyra Martell APRN.LAMINATION 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 [address] [place] [address] Urinary Retention/Symptoms [facility] Comment on above: Urinary Retention/Sy mptoms Start: 01-17-2024 End: 01-17-2024 ambulatory 01/17/2024 10:30 AM EDT [facility] Hematology/Oncology [address] [place] [address] Wstr, Investigator Welfare [facility] [address] [place] [address] CHEMO ED - CARBO/ETOP/TECENTRIQ* Hematology/Oncology Comment on above: CHEMO ED - CARBO/ETO P/TECENTRIQ* Start: 01-16-2024 End: 01-16-2024 ambulatory [facility] Comment on above: BMP(S) LAB EARLY/? IV HYDRA TION* Start: 01-12-2024 End: 04-12-2024 Chronic hepatitis differentiation between hepatitis B and C virus panel - Serum or Plasma [facility] Comment on above: Expected: 01/12/2024 , Expires: 04/12/2024 Start: 01-12-2024 End: 01-12-2024 ambulatory 01/12/2024 1:30 PM EDT Visit (SP) Office Hematology/Oncology [address] [place] [address] Corazon Renteria DO [address] [place] [address] SPRING TIER/BIOPSY 12/31* FIRST AVAIL AFTER BIOPSY Hematology/Oncology Comment on above: SPRING TIER/BIOPSY 12/31* FIRS T AVAIL AFTER BIOPSY Start: 01-01-2024 End: 01-01-2024 Admission to same day surgery center 01/01/2024 9:30 AM EDT - 01/01/2024 11:00 AM EDT Surgery [facility] [address] [place] [address] Mason Cuellar MD, [address] [place] [address] PERCUTANEOUS NEEDLE BIOPSY OF LIVER [facility] Comment on above: PERCUTANEOUS NEEDLE BIOPSY OF LIVER Start: 01-01-2024 End: 01-01-2024 Biopsy liver needle percutaneous PERCUTANEOUS NEEDLE BIOPSY OF LIVER Liver lesion Abnormal PET scan of liver 01/01/2024 9:30 AM EDT [facility] Start: 01-01-2024 Subsequent hospital visit by physician 01/01/2024 9:30 AM EDT Hospital Encounter [facility] [address] [place] [address] Mason Cuellar MD, [address] [place] [address] Liver lesion [K76.9] [facility] Comment on above: Liver lesion [K76.9] Start: 12-26-2023 End: 03-26-2024 CBC panel - Blood by Automated count COMPLETE BLOOD COUNT Lab Routine Liver lesion Expected: 12/26/2023, Expires: 03/26/2024 [facility] Comment on above: Expected: 12/26/2023 , Expires: 03/26/2024 Start: 12-26-2023 End: 03-26-2024 PT panel - Platelet poor plasma by Coagulation assay PROTHROMBIN TIME Lab Routine Liver lesion Expected: 12/26/2023, Expires: 03/26/2024 [facility] Work Phone: Comment on above: Expected: 12/26/2023 , Expires: 03/26/2024 Start: 12-18-2023 End: 12-18-2023 Patient encounter procedure 12/18/2023 3:00 PM EDT Office Visit Pulmonary Medicine [address] [place], [place] [address] Anitra Mcduffie APRN.LAMINATION 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 [address] [place] [address] PET f/u Pulmonary Medicine Comment on above: PET f/u Start: 12-12-2023 End: 12-12-2023 Patient encounter procedure 12/12/2023 9:20 AM EDT Office Visit [facility] [address] [place] [address] Tyra Martell SEASONER HAND.LAMINATION 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 [address] [place], [place] [id number] scrotal sores [facility] Comment on above: scrotal sores Start: 12-11-2023 End: 12-11-2023 Patient encounter procedure 12/11/2023 12:00 PM EDT Office Visit Pulmonary Medicine [address] [place] [address] Anitra Mcduffie, SEASONER HAND.LAMINATION 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 [address] [place] [address] PET follow up Pulmonary Medicine Comment on above: PET follow up Start: 12-07-2023 End: 12-07-2023 Patient encounter procedure 12/07/2023 8:00 AM EDT Office Visit Cardiology [address] [address] Shaina Raymond SEASONER HAND.LAMINATION 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 [address] [place] [address] 2 month follow up Cardiology Comment on above: 2 month follow up Start: 12-06-2023 End: 12-06-2023 Patient encounter procedure 12/06/2023 9:20 AM EDT Appointment Radiology [address] [place] [address] Lesion of liver [K76.9] Radiology Comment on above: Lesion of liver [K76 .9] Start: 11-29-2023 End: 11-28-2024 MR Liver WO and W contrast IV MRI LIVER WO/W IVCON Radiology Routine Lesion of liver Expected: 11/29/2023, Expires: 11/28/2024 [facility] Comment on above: Expected: 11/29/2023 , Expires: 11/28/2024 Start: 11-28-2023 End: 11-28-2023 Patient encounter procedure 11/28/2023 2:00 PM EDT Office Visit Pulmonary Medicine [address] [address] Anitra Mcduffie, SEASONER HAND.LAMINATION 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 [address] [place] [address] PET scan follow up Pulmonary Medicine Comment on above: PET scan follow up Start: 11-27-2023 End: 11-27-2023 Patient encounter procedure Pulmonary Medicine Comment on above: yearly LCS PET follow up Start: 11-20-2023 End: 11-20-2023 Patient encounter procedure Mobile PET CT Comment on above: Lung nodules [R91.8] Start: 11-19-2023 Influenza vaccination Influenza Vacc ine (#1) [facility] Comment on above: Postponed from 01/20 (Declined at this time) Start: 11-17-2023 End: 02-16-2024 Basic metabolic 2000 panel - Serum or Plasma BASIC METABOLIC PANEL Lab Routine Lesion of liver Expected: 11/17/2023, Expires: 02/16/2024 [facility] Work Phone: Comment on above: Expected: 11/17/2023 , Expires: 02/16/2024 Start: 11-13-2023 End: 11-13-2023 Nursing evaluation of patient and report 11/13/2023 8:15 AM EDT Nurse Visit Cardiology [address] [place] [address] Wstr, Nurse Card Admin [facility] [address], [place] [id number] SHAH (dyspnea on exertion) [R06.09]; Encounter for screening for cardiovascular disorders [Z13.6] Cardiology Comment on above: SHAH (dyspnea on exer tion) [R06.09]; Encounter for screening for cardiovascular disorders [Z13.6] Start: 11-13-2023 End: 11-13-2023 Patient encounter procedure Nuclear Medicine Comment on above: SHAH (dyspnea on exer tion) [R06.09]; Encounter for screening for cardiovascular disorders [Z13.6] Start: 10-24-2023 End: 10-24-2023 Patient encounter procedure Cat Scan Comment on above: Tobacco use disorder [F17.200] Start: 09-29-2023 End: 09-29-2023 Patient encounter procedure 09/29/2023 9:20 AM EDT Office Visit Cardiology [address] [place], [place] [id number] Marty Saravia DO [address] [place] [address] Coronary artery calcification seen on CAT scan [I25.10] Cardiology Comment on above: Coronary artery calc ification seen on CAT scan [I25.10] Start: 09-14-2023 ANNUAL PCP TEAM HOUSEKEEPING ROOM INSPECTOR ROSEMARIE DISEASE VISIT ANNUAL PCP TEAM CHRONIC DISEASE VISIT [facility] Start: 09-05-2023 End: 09-27-2024 CT Chest WO contrast CT CHEST WO IVCON Radiology Routine Tobacco abuse Pulmonary nodule Expected: 09/05/2023, Expires: 09/27/2024 [facility] Work Phone: Comment on above: Expected: 09/05/2023 , Expires: 09/27/2024 Start: 08-25-2023 End: 10-25-2023 CBC W Auto Differential panel - Blood CBC + DIFF Lab Routine Hypertension, essential Expected: 08/25/2023, Expires: 10/25/2023 [facility] Work Phone: Comment on above: Expected: 08/25/2023 , Expires: 10/25/2023 Start: 08-25-2023 End: 10-25-2023 Comprehensive metabolic 2000 panel - Serum or Plasma COMP METABOLIC PANEL Lab Routine Hypertension, essential Hyperlipidemia, mixed Expected: 08/25/2023, Expires: 10/25/2023 [facility] Work Phone: Comment on above: Expected: 08/25/2023 , Expires: 10/25/2023 Start: 08-25-2023 End: 10-25-2023 Hemoglobin A1c in Blood HGB A1C Lab Routine Prediabetes Expected: 08/25/2023, Expires: 10/25/2023 [facility] Work Phone: Comment on above: Expected: 08/25/2023 , Expires: 10/25/2023 Start: 08-25-2023 End: 10-25-2023 VITAMIN B1 (THIAMINE), WHOLE BLOOD VITAMIN B1 (THIAMINE), WHOLE BLOOD Lab Routine Alcohol dependence with uncomplicated intoxication (HCC) Expected: 08/25/2023, Expires: 10/25/2023 [facility] Work Phone: Comment on above: Expected: 08/25/2023 , Expires: 10/25/2023 Start: 08-17-2023 ANNUAL PCP TEAM HOUSEKEEPING ROOM INSPECTOR ROSEMARIE DISEASE VISIT ANNUAL PCP TEAM CHRONIC DISEASE VISIT [facility] Start: 05-22-2023 Advance Directive Discussion Advance Directive Discussion [facility] Start: 02-01-2023 ANNUAL PCP TEAM HOUSEKEEPING ROOM INSPECTOR ROSEMARIE DISEASE VISIT ANNUAL PCP TEAM CHRONIC DISEASE VISIT [facility] Start: 01-20-2023 Influenza vaccination C [facility] Start: 11-18-2022 Influenza vaccination INFLUENZA (#1) [facility] Comment on above: Postponed from 01/20 (Declined at this time) Start: 09-24-2022 ANNUAL PCP TEAM HOUSEKEEPING ROOM INSPECTOR ROSEMARIE DISEASE VISIT ANNUAL PCP TEAM CHRONIC DISEASE VISIT [facility] Start: 09-11-2022 End: 11-11-2022 CBC panel - Blood by Automated count CBC Lab Routine Mild episode of recurrent major depressive disorder (HCC) Hypertension, essential Prediabetes GERD without esophagitis Expected: 09/11/2022, Expires: 11/11/2022 [facility] Work Phone: Comment on above: Expected: 09/11/2022 , Expires: 11/11/2022 Start: 09-11-2022 End: 11-11-2022 Comprehensive metabolic 2000 panel - Serum or Plasma COMP METABOLIC PANEL Lab Routine Mild episode of recurrent major depressive disorder (HCC) Hypertension, essential Prediabetes Hyperlipidemia, mixed GERD without esophagitis Expected: 09/11/2022, Expires: 11/11/2022 [facility] Work Phone: Comment on above: Expected: 09/11/2022 , Expires: 11/11/2022 Start: 09-11-2022 End: 11-11-2022 Hemoglobin A1c in Blood HGB A1C Lab Routine Prediabetes Expected: 09/11/2022, Expires: 11/11/2022 [facility] Work Phone: Comment on above: Expected: 09/11/2022 , Expires: 11/11/2022 Start: 09-11-2022 End: 11-11-2022 Lipid 1996 panel - Serum or Plasma LIPID PANEL BASIC Lab Routine Prediabetes Hyperlipidemia, mixed Expected: 09/11/2022, Expires: 11/11/2022 [facility] [facility] Work Phone: Comment on above: Expected: 09/11/2022 , Expires: 11/11/2022 Start: 07-22-2022 ANNUAL PCP TEAM HOUSEKEEPING ROOM INSPECTOR ROSEMARIE DISEASE VISIT ANNUAL PCP TEAM CHRONIC DISEASE VISIT [facility] Start: 07-01-2022 COVID-19 VACCINE (5 - Pfizer series) COVID-19 VACCINE (5 - Pfizer series) [facility] Start: 05-22-2022 ADVANCE DIRECTIVE DISCUSSION ADVANCE DIRECTIVE DISCUSSION [facility] Start: 03-15-2022 End: 05-15-2022 CBC W Auto Differential panel - Blood [facility] Work Phone: Comment on above: Expected: 03/15/2022 , Expires: 05/15/2022 Start: 03-15-2022 End: 05-15-2022 Comprehensive metabolic 2000 panel - Serum or Plasma [facility] Work Phone: Comment on above: Expected: 03/15/2022 , Expires: 05/15/2022 Start: 03-15-2022 End: 05-15-2022 Hemoglobin A1c in Blood [facility] Work Phone: Comment on above: Expected: 03/15/2022 , Expires: 05/15/2022 Start: 03-15-2022 End: 05-15-2022 Lipid 1996 panel - Serum or Plasma [facility] Work Phone: Comment on above: Expected: 03/15/2022 , Expires: 05/15/2022 Start: 03-15-2022 End: 05-15-2022 Magnesium [Mass/volume] in Serum or Plasma [facility] Work Phone: Comment on above: Expected: 03/15/2022 , Expires: 05/15/2022 Start: 03-15-2022 End: 05-15-2022 PSA/PROSTSPECAG SCRN [facility] Work Phone: Comment on above: Expected: 03/15/2022 , Expires: 05/15/2022 Start: 01-20-2022 Influenza vaccination [facility] Start: 01-12-2022 End: 03-14-2022 CBC panel - Blood by Automated count CBC Lab Routine Alcohol dependence with uncomplicated intoxication (HCC) GERD without esophagitis Hypertension, essential Mild episode of recurrent major depressive disorder (HCC) Prediabetes Expected: 01/12/2022, Expires: 03/14/2022 [facility] Work Phone: Comment on above: Expected: 01/12/2022 , Expires: 03/14/2022 Start: 01-12-2022 End: 03-14-2022 Comprehensive metabolic 2000 panel - Serum or Plasma COMP METABOLIC PANEL Lab Routine Alcohol dependence with uncomplicated intoxication (HCC) GERD without esophagitis Hyperlipidemia, mixed Hypertension, essential Mild episode of recurrent major depressive disorder (HCC) Prediabetes Expected: 01/12/2022, Expires: 03/14/2022 [facility] Work Phone: Comment on above: Expected: 01/12/2022 , Expires: 03/14/2022 Start: 01-12-2022 End: 03-14-2022 Hemoglobin A1c in Blood HGB A1C Lab Routine Prediabetes Expected: 01/12/2022, Expires: 03/14/2022 [facility] Work Phone: Comment on above: Expected: 01/12/2022 , Expires: 03/14/2022 Start: 01-12-2022 End: 03-14-2022 Lipid 1996 panel - Serum or Plasma LIPID PANEL BASIC Lab Routine Hyperlipidemia, mixed Expected: 01/12/2022, Expires: 03/14/2022 [facility] Work Phone: Comment on above: Expected: 01/12/2022 , Expires: 03/14/2022 Start: 01-12-2022 End: 03-14-2022 Magnesium [Mass/volume] in Serum or Plasma MAGNESIUM BLD Lab Routine Current use of proton pump inhibitor Expected: 01/12/2022, Expires: 03/14/2022 [facility] Work Phone: Comment on above: Expected: 01/12/2022 , Expires: 03/14/2022 Start: 01-12-2022 End: 03-14-2022 PSA/PROSTSPECAG SCRN PSA/PROSTSPECAG SCRN Lab Routine Screening for prostate cancer Expected: 01/12/2022, Expires: 03/14/2022 [facility] Work Phone: Comment on above: Expected: 01/12/2022 , Expires: 03/14/2022 Start: 09-25-2021 COVID-19 VACCINE (4 - Booster for Pfizer series) COVID-19 VACCINE (4 - Booster for Pfizer series) [facility] Start: 07-23-2021 COVID-19 VACCINE (4 - Booster for Pfizer series) COVID-19 VACCINE (4 - Booster for Pfizer series) [facility] Start: 05-22-2021 ADVANCE DIRECTIVE DISCUSSION ADVANCE DIRECTIVE DISCUSSION [facility] Start: 2021 PNEUMOVAX AGE 65 AND OVER WITH 5YR LOOKBACK (#1) PNEUMOVAX AGE 65 AND OVER WITH 5YR LOOKBACK (#1) [facility] Start: 01-29-2021 PROSTATE CANCER SCREENING DISCUSSION PROSTATE CANCER SCREENING DISCUSSION [facility] Start: 12-11-2019 PNEUMOCOCCAL: 65+ (2 - PPSV23 or PCV20) PNEUMOCOCCAL: 65+ (2 - PPSV23 or PCV20) [facility] Start: 09-16-2017 Colonoscopy COLONOSCOPY [facility] Start: 09-16-2017 COLORECTAL CANCER SCREENING COLORECTAL CANCER SCREENING [facility] Start: 2016 RSV Vaccine (1 - 1-d ose 60+ series) RSV Vaccine (1 - 1-dose 60+ series) [facility] Start: 2016 RSV Vaccine (1 - Ris k 60-74 years 1-dose series) RSV Vaccine (1 - Risk 60-74 years 1-dose series) [facility] Start: 2006 Influenza vaccination LUNG CANCER SC REENING [facility] Start: 2006 SHINGRIX VACCINE (1 of 2) SHINGRIX VACCINE (1 of 2) [facility] Start: 2001 COLOGUARD (FIT-DNA) COLOGUARD (FIT-D NA) [facility] Start: [address] COLONOGRAPHY [facility] Start: 2001 FECAL OCCULT BLOOD FECAL OCCULT BLOO D [facility] Start: 2001 Screening for malign ant neoplasm of colon [facility] Start: 2001 SIGMOIDOSCOPY SIGMOIDOSCOPY [facility] Start: 1975 Shingrix Vaccine (1 of 2) Shingrix Vaccine (1 of 2) [facility] Start: 1974 Anxiety Screening Anxiety Screening [facility] Start: 1974 BP CONTROLLED (<130/80) BP CONTROLLE D (<130/80) [facility] Start: 1974 HIV SCREENING HIV SCREENING [facility] Start: 1956 ABDOMINAL AORTIC ANEURYSM SCREENING ABDOMINAL AORTIC ANEURYSM SCREENING [facility] Start: 1955 Abdominal aortic aneurysm screening Abdominal Aortic Aneurysm Screening [facility] COLOGUARD COLOGUARD Lab Ro utine Screening for colon cancer Ordered: 02/23/2023 [facility] Work Phone: Comment on above: Ordered: 02/23/2023 End: 04-18-2024 COLONOSCOPY DIAGNOSTIC COLONOSCOPY DIAGNOSTIC Endoscopy Routine Tobacco use 1 Occurrences starting 04/18/2023 until 04/18/2024 [facility] Work Phone: Comment on above: 1 Occurrences starti ng 04/18/2023 until 04/18/2024 End: 03-17-2025 CT Abdomen and Pelvis W contrast IV CT ABD/PEL W IVCON Radiology Routine 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) Metastatic cancer to bone (HCC) 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) 1 Occurrences starting 02/16/2024 until 03/17/2025 [facility] Work Phone: Comment on above: 1 Occurrences starti ng 02/16/2024 until 03/17/2025 CT Abdomen and Pelvi s W contrast IV CT ABD/PEL W IVCON Radiology Routine 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) Metastatic cancer to bone (HCC) 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) 03/05/2024 9:40 AM EDT [facility] Work Phone: CT Abdomen and Pelvi s W contrast IV CT ABD/PEL W IVCON Radiology Routine Malignant neoplasm of unspecified part of unspecified bronchus or lung (HCC) 04/15/2024 10:40 AM EST [facility] Work Phone: End: 07-18-2025 CT Abdomen and Pelvis W contrast IV CT ABD/PEL W IVCON Radiology Routine 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) Metastatic cancer to bone (HCC) 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) 1 Occurrences starting 06/17/2024 until 07/18/2025 [facility] Comment on above: 1 Occurrences starti ng 06/17/2024 until 07/18/2025 CT Abdomen and Pelvi s W contrast IV CT ABD/PEL W IVCON Radiology Routine 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) Metastatic cancer to bone (HCC) 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) 07/10/2024 9:57 AM [facility] CT Abdomen and Pelvi s W contrast IV CT ABD/PEL W IVCON Radiology Routine Malignant neoplasm of unspecified part of unspecified bronchus or lung (HCC) 10/15/2024 10:27 AM [facility] Work Phone: CT Abdomen and Pelvi s WO contrast CT ABD/PEL WO IVCON Radiology Routine Tobacco use disorder 10/24/2023 10:41 AM [facility] Work Phone: End: 03-17-2025 CT Chest W contrast IV CT CHEST W IVCON Radiology Routine 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) Metastatic cancer to bone (HCC) 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) 1 Occurrences starting 02/16/2024 until 03/17/2025 [facility] Comment on above: 1 Occurrences starti ng 02/16/2024 until 03/17/2025 CT Chest W contrast IV CT CHEST W IVCON Radiology Routine 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) Metastatic cancer to bone (HCC) 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) 03/05/2024 9:40 AM [facility] CT Chest W contrast IV CT CHEST W IVCON Radiology Routine Malignant neoplasm of unspecified part of unspecified bronchus or lung (HCC) 04/15/2024 10:40 AM [facility] End: 07-17-2025 CT Chest W contrast IV CT CHEST W IVCON Radiology Routine 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) Metastatic cancer to bone (HCC) 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) 1 Occurrences starting 06/17/2024 until 07/17/2025 [facility] Work Phone: Comment on above: 1 Occurrences starti ng 06/17/2024 until 07/17/2025 CT Chest W contrast IV CT CHEST W IVCON Radiology Routine 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) Metastatic cancer to bone (HCC) 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) 07/10/2024 9:57 AM [facility] Work Phone: End: 10-09-2025 CT Chest W contrast IV CT CHEST W IVCON Radiology Routine Malignant neoplasm of unspecified part of unspecified bronchus or lung (HCC) 1 Occurrences starting 09/09/2024 until 10/09/2025 [facility] Comment on above: 1 Occurrences starti ng 09/09/2024 until 10/09/2025 CT Chest W contrast IV CT CHEST W IVCON Radiology Routine Malignant neoplasm of unspecified part of unspecified bronchus or lung (HCC) 10/15/2024 10:27 AM EDT [facility] CT Chest WO contrast CT CHEST WO IVCON Radiology Routine Tobacco abuse Pulmonary nodule 09/14/2023 8:24 AM EDT [facility] Work Phone: End: 04-19-2024 CT LUNG SCREEN WO IVCON CT LUNG SCREEN WO IVCON Radiology Routine 1 Occurrences starting 03/21/2023 until 04/19/2024 [facility] Work Phone: Comment on above: 1 Occurrences starti ng 03/21/2023 until 04/19/2024 ECG COMPLETE ECG COMPLETE ECG Routine Tobacco abuse Alcohol misuser in household SHAH (dyspnea on exertion) 08/29/2023 8:56 AM EDT [facility] Work Phone: End: 05-01-2024 EGD DIAGNOSTIC EGD DIAGNOSTIC Endoscopy Routine Gastroesophageal reflux disease, unspecified whether esophagitis present 1 Occurrences starting 05/01/2023 until 05/01/2024 [facility] Work Phone: Comment on above: 1 Occurrences starti ng 05/01/2023 until 05/01/2024 Guidance for percutaneous biopsy of Liver IMAGING GUIDED BIOPSY LIVER Radiology Routine Liver lesion Abnormal PET scan of liver Ordered: 12/18/2023 [facility] Work Phone: Comment on above: Ordered: 12/18/2023 Hemoglobin.gastroint rekha nal.lower [Presence] in Stool by Immunoassay FECAL OCCULT BLOOD TEST Lab Routine Screening for colon cancer Change in bowel habit Ordered: 02/01/2022 [facility] Work Phone: Comment on above: Ordered: 02/01/2022 End: 03-03-2023 LUNG DIFFUSION CAPACITY (DLCO) LUNG DIFFUSION CAPACITY (DLCO) PFT Routine Tobacco use disorder SHAH (dyspnea on exertion) 1 Occurrences starting 02/01/2022 until 03/03/2023 [facility] Work Phone: Comment on above: 1 Occurrences starti ng 02/01/2022 until 03/03/2023 End: 12-01-2024 LUNG DIFFUSION CAPACITY (DLCO) LUNG DIFFUSION CAPACITY (DLCO) PFT Routine Lung nodules 1 Occurrences starting 11/02/2023 until 12/01/2024 [facility] Comment on above: 1 Occurrences starti ng 11/02/2023 until 12/01/2024 End: 12-06-2024 LUNG DIFFUSION CAPACITY (DLCO) LUNG DIFFUSION CAPACITY (DLCO) PFT Routine Lung nodules 1 Occurrences starting 11/07/2023 until 12/06/2024 [facility] Comment on above: 1 Occurrences starti ng 11/07/2023 until 12/06/2024 End: 03-03-2023 LUNG VOLUMES LUNG VOLUMES PFT Routine Tobacco use disorder SHAH (dyspnea on exertion) 1 Occurrences starting 02/01/2022 until 03/03/2023 [facility] Work Phone: Comment on above: 1 Occurrences starti ng 02/01/2022 until 03/03/2023 LUNG VOLUMES LUNG VOLUMES PFT Routine Tobacco use disorder SHAH (dyspnea on exertion) 02/08/2022 8:03 AM EDT [facility] Work Phone: End: 12-01-2024 LUNG VOLUMES LUNG VOLUMES PFT Routine Lung nodules 1 Occurrences starting 11/02/2023 until 12/01/2024 [facility] Comment on above: 1 Occurrences starti ng 11/02/2023 until 12/01/2024 End: 12-06-2024 LUNG VOLUMES LUNG VOLUMES PFT Routine Lung nodules 1 Occurrences starting 11/07/2023 until 12/06/2024 [facility] Comment on above: 1 Occurrences starti ng 11/07/2023 until 12/06/2024 End: 02-10-2025 MR Brain WO and W contrast IV MRI BRAIN WO/W IVCON Radiology STAT Liver lesion Abnormal PET scan of liver Abnormal PET of right lung Lung nodule, multiple Hilar adenopathy 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) Metastatic cancer to bone (HCC) 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) 1 Occurrences starting 01/12/2024 until 02/10/2025 [facility] Work Phone: Comment on above: 1 Occurrences starti ng 01/12/2024 until 02/10/2025 MR Liver WO and W contrast IV MRI LIVER WO/W IVCON Radiology Routine Lesion of liver 07/31/2024 2:06 PM EDT [facility] Work Phone: End: 09-27-2024 NM Heart Perfusion W stress and W radionuclide IV NM CARDIAC PERF STRESS/PHARM Radiology Routine SHAH (dyspnea on exertion) Encounter for screening for cardiovascular disorders 1 Occurrences starting 08/29/2023 until 09/27/2024 [facility] Work Phone: Comment on above: 1 Occurrences starti ng 08/29/2023 until 09/27/2024 Patient Education Cardiomyopathy Dc ED Heart Failure, Congestive (CHF) [facility] Work Phone: Patient referral [facility] Work Phone: End: 12-01-2024 PET+CT Guidance for localization of tumor of Skull base to mid-thigh-- W 18F-FDG IV NM PET/CT SKULL-THIGH INITIAL Radiology Routine Lung nodules 1 Occurrences starting 11/02/2023 until 12/01/2024 [facility] Comment on above: 1 Occurrences starti ng 11/02/2023 until 12/01/2024 End: 12-06-2024 PET+CT Guidance for localization of tumor of Skull base to mid-thigh-- W 18F-FDG IV NM PET/CT SKULL-THIGH INITIAL Radiology Routine Lung nodules 1 Occurrences starting 11/07/2023 until 12/06/2024 [facility] Comment on above: 1 Occurrences starti ng 11/07/2023 until 12/06/2024 PET+CT Guidance for localization of tumor of Skull base to mid-thigh-- W 18F-FDG IV NM PET/CT SKULL-THIGH INITIAL Radiology Routine Lung nodules 12/05/2023 12:17 PM EDT [facility] Work Phone: End: 11-22-2025 PET+CT Guidance for localization of tumor of Skull base to mid-thigh-- W 18F-FDG IV NM PET/CT SKULL-THIGH SUBSEQUENT Radiology Routine 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) Metastatic cancer to bone (HCC) 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) 1 Occurrences starting 10/23/2024 until 11/22/2025 [facility] Work Phone: Comment on above: 1 Occurrences starti ng 10/23/2024 until 11/22/2025 End: 07-17-2025 Polysomnogram POLYSOMNOGRAM (PSG) Procedures Routine ROMIE (obstructive sleep apnea) Intolerance of continuous positive airway pressure (CPAP) ventilation 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) Obesity, Class III, BMI 40-49.9 (morbid obesity) (HCC) 1 Occurrences starting 07/17/2024 until 07/17/2025 [facility] Work Phone: Comment on above: 1 Occurrences starti ng 07/17/2024 until 07/17/2025 End: 11-07-2025 Polysomnogram POLYSOMNOGRAM (PSG) Procedures Routine ROMIE (obstructive sleep apnea) Intolerance of continuous positive airway pressure (CPAP) ventilation 1 Occurrences starting 11/07/2024 until 11/07/2025 [facility] Work Phone: Comment on above: 1 Occurrences starti ng 11/07/2024 until 11/07/2025 End: 12-01-2024 SIX MINUTE WALK SIX MINUTE WALK PFT Routine Lung nodules 1 Occurrences starting 11/02/2023 until 12/01/2024 [facility] Comment on above: 1 Occurrences starti ng 11/02/2023 until 12/01/2024 End: 12-06-2024 SIX MINUTE WALK SIX MINUTE WALK PFT Routine Lung nodules 1 Occurrences starting 11/07/2023 until 12/06/2024 [facility] Comment on above: 1 Occurrences starti ng 11/07/2023 until 12/06/2024 End: 03-03-2023 SPIROMETRY WITH DILATOR IF OBSTRUCTED SPIROMETRY WITH DILATOR IF OBSTRUCTED PFT Routine Tobacco use disorder SHAH (dyspnea on exertion) 1 Occurrences starting 02/01/2022 until 03/03/2023 [facility] Work Phone: Comment on above: 1 Occurrences starti ng 02/01/2022 until 03/03/2023 End: 12-01-2024 SPIROMETRY WITH DILATOR IF OBSTRUCTED SPIROMETRY WITH DILATOR IF OBSTRUCTED PFT Routine Lung nodules 1 Occurrences starting 11/02/2023 until 12/01/2024 [facility] Work Phone: Comment on above: 1 Occurrences starti ng 11/02/2023 until 12/01/2024 End: 12-06-2024 SPIROMETRY WITH DILATOR IF OBSTRUCTED SPIROMETRY WITH DILATOR IF OBSTRUCTED PFT Routine Lung nodules 1 Occurrences starting 11/07/2023 until 12/06/2024 [facility] Comment on above: 1 Occurrences starti ng 11/07/2023 until 12/06/2024 End: 09-27-2024 US Abdominal Aorta for screening US SCREENING FOR AAA Radiology Routine Tobacco abuse 1 Occurrences starting 08/29/2023 until 09/27/2024 [facility] Work Phone: Comment on above: 1 Occurrences starti ng 08/29/2023 until 09/27/2024 US Abdominal Aorta f or screening US SCREENING FOR AAA Radiology Routine Tobacco abuse 09/14/2023 7:45 AM EDT [facility] Work Phone: [facility] Immunizations Immunization Date Immunization Notes Care Provider Diomedes reyna 02-29-2024 respiratory syncytia l virus (RSV) vaccine, bivalent (ABRYSVO) Tyra Martell SEASONER 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.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 Work Phone: [facility] 02-28-2022 COVID-19 booster vaccine, age 12+ yr, bivalent (PFIZER-BIONTECH) NA Hernandez PA-C Work Phone: [facility] 02-01-2022 pneumococcal polysaccharide vaccine, 23 valent NA Hernandez PA-C Work Phone: [facility] 05-28-2021 COVID-19 original vaccine, age 12+ yr, monovalent (PFIZER-BIONTECH - PURPLE TOP) NA Hernandez PA-C Work Phone: [facility] 08-27-2020 COVID-19 vaccine, ag e 12+ yr (PFIZER-BIONTECH - PURPLE TOP) NA Hernandez PA-C Work Phone: [facility] 08-06-2020 COVID-19 vaccine, ag e 12+ yr (PFIZER-BIONTECH - PURPLE TOP) NA Hernandez PA-C Work Phone: [facility] 12-10-2018 pneumococcal conjuga te vaccine, 13 valent NA Hernandez PA-C Work Phone: [facility] Work Phone: 08-08-2018 tetanus and diphther ia toxoids, adsorbed, preservative free, for adult use (5 Lf of tetanus toxoid and 2 Lf of diphtheria toxoid) NA Hernandez PA-C Work Phone: [facility] 08-08-2018 influenza virus vacc ine, unspecified formulation NA Hernandez PA-C Work Phone: [facility] 09-16-2016 pneumococcal conjuga te vaccine, 13 valent NA Hernandez PA-C Work Phone: [facility] 01-30-2006 tetanus toxoid, redu jeffrey diphtheria toxoid, and acellular pertussis vaccine, adsorbed NA Davdi VILLASEÑOR Work Phone: [facility] Work Phone: Payers Date Payer Category Payer Medicare [id number] 2024 Self-pay 2009 [employer] BLUE CARD PPO OOS [id number] 2009 Unknown [employer] BLUE CARD PPO OOS [id number] 2009-Present [id number] [id number] 2009 Unknown [id number] 2004 Government (not [facility] care or Medicaid) [facility] [id number] 15 2004 Unknown [facility] [id number] 2004-Present [phone] [address] [place] [address] [facility] [id number] 2004 Unknown [facility] [id number] 2004-2021 [address] [place] [address] [facility] [id number] 2004 Unknown [id number] Unknown [id number] Unknown [id number] Unknown [id number] Unknown [id number] Unknown [id number] Unknown [id number] Unknown [id number] Social History Date Type Detail Facility Start: 07-29-2015 End: 03-21-2023 Tobacco smoking status IAIS Smokes tobacco daily [facility] Work Phone: Start: 11-12-1972 End: 11-13-2023 History of tobacco use Cigarette Smoker [facility] Work Phone: Start: 07-29-2015 End: 02-23-2023 Cigarettes smoked current (pack per day) - Reported 1 [facility] Start: 07-29-2015 End: 05-20-2024 Tobacco use and exposure Smokeless tobacco non-user [facility] Work Phone: Start: 07-22-2021 End: 12-03-2024 Alcohol intake Current drinker of alcohol (finding) [facility] Start: 07-22-2021 History SDOH Alcohol Frequency 5 [facility] Start: 06-09-2016 History SDOH Alcohol Comment 2 [facility] Start: 06-09-2016 End: 02-01-2022 Tobacco Comment smoking 1/2 pack a day now [facility] Start: 1955 Sex Assigned At Not on file [facility] Start: 08-04-2020 End: 02-01-2022 Exposure to SARS-CoV-2 (event) Not sure [facility] Work Phone: Start: 01-01-2022 End: 01-11-2022 Exposure to SARS-CoV-2 (event) Unable to assess [facility] Work Phone: Start: 09-13-2022 End: 02-23-2023 Tobacco use panel [facility] Start: 04-22-2012 Adult Depression Screening Assessment 0 [facility] How often to you hav e a drink containing alcohol? 4 or more times a week [facility] Work Phone: How many standard drinks containing alcohol do you have on a typical day? 10 or more [facility] Work Phone: How often do you hav e 6 or more drinks on 1 occasion? Daily or almost daily [facility] Work Phone: Start: 03-21-2023 Tobacco Comment smoking 1/2 pa ck a day now 03/21/2023 [facility] Start: 12-12-2023 End: 05-20-2024 Tobacco smoking status NHIS Ex-smoker [facility] Start: 11-12-1972 End: 11-13-2023 History of tobacco use Current smoker [facility] Start: 1955 Sex assigned at Male [facility] Start: 01-17-2024 Gender identity Identifies as male gender (finding) [facility] Start: 01-17-2024 Sexual orientation Heterosexual (manisha turpin) [facility] Start: 01-17-2020 Heavy Heavy [facility]17-[facility]: [facility] Spouse/ Significant Other Spouse/ Significant Other [facility] Start: 01-17-2020 Cigarettes Cigarettes [facility] Start: 08-12-2024 Sex Male (finding) [facility] Goals Date Patient Goal Desired Activity /State Personal health goal Functional Status Date Assessment Result Facility 05-02-2024 Functional status Ambulates;Up ad tomas [facility] Work Phone: 11-26-2014 Are you deaf, or do you have serious difficulty hearing No 11/26/2014 10:02 AM EDT Mile Munoz LPN No [facility] 11-26-2014 Are you blind, or do you have serious difficulty seeing, even when wearing glasses No 11/26/2014 10:02 AM EDT Mile Munoz LPN No [facility] 11-26-2014 Do you have serious difficulty walking or climbing stairs No 11/26/2014 10:02 AM EDT Mile Munoz LPN No [facility] 11-26-2014 Do you have difficul ty dressing or bathing No 11/26/2014 10:02 AM EDT Mile Munoz LPN No [facility] 11-26-2014 Because of a physica l, mental, or emotional condition, do you have difficulty doing errands alone such as visiting a physician's office or shopping No 11/26/2014 10:02 AM EDT Mile Munoz LPN No [facility] Mental Status Date Assessment Result Facility 05-02-2024 Cognitive function Voice/Name [facility] Work Phone: 11-26-2014 Because of a physica l, mental, or emotional condition, do you have serious difficulty concentrating, remembering, or making decisions No 11/26/2014 10:02 AM EDT Mile Munoz LPN No [facility] Clinical Notes 02-24-2010 to 12-30-2024 Koffi Huerta APRN.CNP - 12/30/2024 10:38 AM EDTTelephone Encounter - Casey Hilton RN - 12/19/2024 4:07 PM EDTTelephone Encounter - Casey Hilton RN - 12/19/2024 4:07 PM EDT Note Date & Type Note Facility 12-30-2024 Note [facility] 12-30-2024 History of Presen t illness Narrative Chief Complaint Patient presents with: Established Patient HPI: Abdirizak Colindres is a 69 year old male who presents here today for evaluation for treatment today. Per Dr. Renteria's previous note: H/o pt. had been undergoing lung cancer screening. Had stable nodules. CT abdomen pelvis identified a nonspecific 2.1 cm lesion in segment 8 of the liver that could be further evaluated due to lack of contrast. Was also found to have right lower lobe pulmonary nodules as well as right hilar adenopathy. A PET scan was obtained on 12/14/2023. Patient was found to have hypermetabolic right hilar adenopathy as well as an infrahilar right-sided mass. There were multiple hypermetabolic foci involving both lobes of the liver as well as hypermetabolic periportal and portacaval adenopathy. There is diffuse heterogeneous marrow activity but several discrete foci of increased uptake including the bilateral femoral with SUV of 6.7 in the left proximal femur and bilateral humeri with a 6.6 right proximal humerus lesion. There were bilateral bony pelvis, sacrum and multilevels and thoracolumbar spine max SUV 4 at T12 and max SUV 4.3 at T9. Had a biopsy one of the liver lesions on 01/01/2024. Pathology: Small cell carcinoma. Patient referred by Tyra Martell APRN.CNP for extensive stage small cell lung cancer. The impression and plan will be communicated by way of the shared electronic record or faxed under separate cover letter. HPI: The patient is a 69-year-old male with a past medical history as outlined below. Has been undergoing lung cancer screening. Had stable nodules. Recent CT abdomen pelvis identified a nonspecific 2.1 cm lesion in segment 8 of the liver that could be further evaluated due to lack of contrast. Was also found to have right lower lobe pulmonary nodules as well as right hilar adenopathy. A PET scan was obtained on 12/14/2023. Patient was found to have hypermetabolic right hilar adenopathy as well as an infrahilar right-sided mass. There were multiple hypermetabolic foci involving both lobes of the liver as well as hypermetabolic periportal and portacaval adenopathy. There is diffuse heterogeneous marrow activity but several discrete foci of increased uptake including the bilateral femoral with SUV of 6.7 in the left proximal femur and bilateral humeri with a 6.6 right proximal humerus lesion. There were bilateral bony pelvis, sacrum and multilevels and thoracolumbar spine max SUV 4 at T12 and max SUV 4.3 at T9. Had a biopsy one of the liver lesions on 01/01/2024. Pathology: Small cell carcinoma. Initial consultation 01/12/2024: Has history of ROMIE but hard for him to use CPAP mask. Stopped smoking. Frequent productive cough. No hemoptysis. No wheezing now. Breathing much better since quitting smoking. Good appetite. Borderline DM--on metformin. Balance off. Dysequilibrium in shower if closes his eyes for a few months. History of psoriasis--Treated Dupixant and Cosentyx. Previous therapy: 1) Carbo/etoposide/atezolizumab Current therapy: 1) Tecentriq No new concerns today. Appetite:Not much. I can't taste. I eat because I have to. Wt. stable. Energy level:Ok. It's my back. Denies fevers or recent illness. Mouth:denies sores Resp:denies new cough or sob Cardiac:denies chest pain/palpitations GI:denies abd pain, n/v, +diarrhea-followed by PCP for this :denies dysuria/hematuria Extrem:denies new pain, chronic back pain-followed by chiropractor Neuro:denies symptoms of neuropathy Skin:denies rashes Heme:denies bleeding, on eliquis The ROS is otherwise negative. Past medical history, appointments, medications, allergies reviewed. No changes. EXAM: BP 104/63 Pulse 92 Temp 36.3 C (97.4 F) (Temporal) Wt 125.3 kg (276 lb 3.8 oz) SpO2 97% BMI 42.00 kg/m APPEARANCE Well appearing, alert, in no acute distress, well-hydrated, well nourished. HEART RRR with normal S1 and S2, no murmurs LUNG clear to auscultation LYMPH NODES No cervical lymphadenopathy, No supraclavicular lymphadenopathy, and No axillary lymphadenopathy. ABDOMEN bowel sounds normoactive, soft, non-tender EXTREMITIES No edema NEURO Awake, alert and oriented x 3, Normal gait, and No involuntary motions. SKIN Skin color, texture, turgor normal, no suspicious rashes or lesions LABS: Latest Ref Rng 11/04/2024 12/03/2024 12/30/2024 WBC 3.70 - 11.00 k/uL 7.66 10.91 8.40 RBC 4.20 - 6.00 m/uL 3.19 (L) 3.80 (L) 3.72 (L) Hemoglobin 13.0 - 17.0 g/dL 10.7 (L) 12.8 (L) 12.4 (L) Hematocrit 39.0 - 51.0 % 32.7 (L) 39.2 37.7 (L) MCV 80.0 - 100.0 fL 102.5 (H) 103.2 (H) 101.3 (H) MCH 26.0 - 34.0 pg 33.5 33.7 33.3 MCHC 30.5 - 36.0 g/dL 32.7 32.7 32.9 RDW-CV 11.5 - 15.0 % 17.2 (H) 15.3 (H) 14.9 Platelet Count 150 - 400 k/uL 242 260 237 MPV 9.0 - 12.7 fL 9.8 10.0 10.1 Neut% % 71.4 70.3 67.2 Abs Neut (ANC) 1.45 - 7.50 k/uL 5.47 7.67 (H) 5.65 Lymph% % 16.6 17.2 18.0 Abs Lymph 1.00 - 4.00 k/uL 1.27 1.88 1.51 Bibb% % 8.7 9.1 12.3 Abs Bibb <0.87 k/uL 0.67 0.99 (H) 1.03 (H) Eosin% % 1.8 2.0 1.3 Abs Eosin <0.46 k/uL 0.14 0.22 0.11 Baso% % 0.3 0.5 0.5 Abs Baso <0.11 k/uL <0.03 0.05 0.04 Immature Gran % % 1.2 0.9 0.7 IMMATURE GRANS (ABS) <0.10 k/uL 0.09 0.10 (H) 0.06 NRBC /100 WBC 0.0 0.0 0.0 Absolute nRBC <0.01 k/uL <0.01 <0.01 <0.01 DTYPE Auto Auto Auto CMP/Mag: Pending RADIOLOGY: PET scan 12/16/24: IMPRESSION: PRIMARY DISEASE SITE/GINA DISEASE: * Persistent metabolic activity in the RIGHT hilar soft tissue fullness. * Resolution of previously seen RIGHT lower lobe consolidation/nodular opacity. METASTATIC DISEASE: * Overall decrease in metabolically active hepatic lesions. * Persistent metabolically intra-abdominal lymphadenopathy. * Resolution of previously seen bone marrow lesions. ASSESSMENT/PLAN: 1. 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) - ICD9: 197.7, ICD10: C78.7 3. Metastatic cancer to bone (HCC) - ICD9: 198.5, ICD10: C79.51 - Overall tolerating tecentriq/zometa well. - Reviewed CBC/PET scan with pt. - CMP/Mag pending. - Continue current medications. - Continue zometa every 3 months. - Proceed as scheduled for tecentriq today pending labs. - Follow up as scheduled. - Pt. aware to call office with any questions/concerns. The patient indicates understanding of these issues and agrees with the plan. All documentation from previous visit of 11/04/24-Dr. Renteria/myself was copied and pasted, documentation has been reviewed and edited as necessary for today's visit. Koffi Huerta APRN.KIMBERLY documented in this encounter [facility] 12-19-2024 Telephone encounter Note Patient phoned to let pcp know, he is going to stop taking simvastatin today, and is going to start taking cholestol OTC today instead. Reports he gets this from his chiropractor. [facility] 12-19-2024 Miscellaneous Notes Patient phoned to let pcp know, he is going to stop taking simvastatin today, and is going to start taking cholestol OTC today instead. Reports he gets this from his chiropractor. documented in this encounter [facility] 12-17-2024 Telephone encounter Note Patient notified. Michelle Lundberg LPN [facility] 12-17-2024 Miscellaneous Notes Patient notified. Michelle Lundberg LPN Can let him know PET scan results look good. Some areas of cancer less active and smaller. Others are stable. We will continue present therapy. Corazon Renteria DO documented in this encounter [facility] 12-16-2024 Telephone encounter Note Can let him know PET scan results look good. Some areas of cancer less active and smaller. Others are stable. We will continue present therapy. Corazon Renteria DO [facility] 12-16-2024 History of Presen t illness Narrative RADIOLOGY SERVICE PROGRESS NOTE SERVICE DATE: 12/16/2024 SERVICE TIME: 7:12 AM PATIENT IDENTITY VERIFICATION COMPLETED USING TWO (2) STANDARD IDENTIFIERS: Name and Date of confirmed by patient verbally FALL SCREENING: Has the patient had 2 falls in the last year or 1 fall with injury or currently using an Ambulatory Assistive Device (Walker, Cane, Wheelchair, Crutches, etc.)? Yes, Patient High Risk for Falls What interventions were put in place to prevent falls during this visit? Increased Observations by Caregivers PATIENT GENDER DATA: .male ALLERGIES: Reviewed and unchanged MEDICATIONS REVIEWED: Not applicable PATIENT RELEVANT IMPLANT DATA REVIEWED: Not Applicable PATIENT PRESENTS WITH AN IMPLANTABLE OR ATTACHED CONVEYOR TECHNICIAN: No CREATININE: Creatinine Date Value Ref Range Status 12/03/2024 1.40 (H) 0.73 - 1.22 mg/dL Final 11/04/2024 1.51 (H) 0.73 - 1.22 mg/dL Final 10/07/2024 0.97 0.73 - 1.22 mg/dL Final Estimated Glomerular Filtration Rate Date Value Ref Range Status 12/03/2024 55 (L) >=60 mL/min/1.73m Final Comment: Estimated Glomerular Filtration Rate (eGFR) is calculated using the 2020 CKD-EPI creatinine equation. This equation utilizes serum creatinine, sex, and age as parameters. The creatinine assay has traceable calibration to isotope dilution-mass spectrometry. Refer to KDIGO guidelines for clinical interpretation. In patients with unstable renal function, e.g. those with acute kidney injury, the eGFR may not accurately reflect actual GFR. eGFR- Date Value Ref Range Status 06/10/2021 >60 Final P.O.C.T. RESULTS: N/A December 16, [address] PERFORMED: No IV SITE: Ambulatory: NH only - direct IV injection in the Right antecubital site POST EXAM PIV STATUS: Discontinued PROCEDURE TYPE: NM INJECT: PET/CT BODY SCAN. 19 mCi F18 FDG. Administered By: mo . No other medications given.. ADMINISTRATION TIME: 07 PATIENT DISCHARGED TO: Ambulatory patient, left NH department area. Is this a therapy: No A Diagnostic radioactive procedure has taken place, with no further precautions necessary other than routine body substance precautions. More information regarding radiation safety can be found using this link: [email or web address]%20N uclear%20Medicine%20Procedures.[email or web address] df SIGNATURE: RT Kiran(R) PATIENT NAME: Abdirizak Colindres DATE: December 16, 2024 TIME: 7:12 AM PAGER/CONTACT #: documented in this encounter [facility] 12-16-2024 Note HNO ID: [id number] Author: ROGER BROWN RT(R) Service: Nuclear Medicine Author Type: Technologist Type: Progress Notes Filed: 12/16/2024 07:13 Note Text: RADIOLOGY SERVICE PROGRESS NOTE SERVICE DATE: 12/16/2024 SERVICE TIME: 7:12 AM PATIENT IDENTITY VERIFICATION COMPLETED USING TWO (2) STANDARD IDENTIFIERS: Name and Date of confirmed by patient verbally FALL SCREENING: Has the patient had 2 falls in the last year or 1 fall with injury or currently using an Ambulatory Assistive Device (Walker, Cane, Wheelchair, Crutches, etc.)? Yes, Patient High Risk for Falls What interventions were put in place to prevent falls during this visit? Increased Observations by Caregivers PATIENT GENDER DATA: .male ALLERGIES: Reviewed and unchanged MEDICATIONS REVIEWED: Not applicable PATIENT RELEVANT IMPLANT DATA REVIEWED: Not Applicable PATIENT PRESENTS WITH AN IMPLANTABLE OR ATTACHED CONVEYOR TECHNICIAN: No CREATININE: Creatinine Date Value Ref Range Status 12/03/2024 1.40 (H) 0.73 - 1.22 mg/dL Final 11/04/2024 1.51 (H) 0.73 - 1.22 mg/dL Final 10/07/2024 0.97 0.73 - 1.22 mg/dL Final Estimated Glomerular Filtration Rate Date Value Ref Range Status 12/03/2024 55 (L) >=60 mL/min/1.73m? Final Comment: Estimated Glomerular Filtration Rate (eGFR) is calculated using the 2020 CKD-EPI creatinine equation. This equation utilizes serum creatinine, sex, and age as parameters. The creatinine assay has traceable calibration to isotope dilution-mass spectrometry. Refer to KDIGO guidelines for clinical interpretation. In patients with unstable renal function, e.g. those with acute kidney injury, the eGFR may not accurately reflect actual GFR. eGFR- Date Value Ref Range Status 06/10/2021 >60 Final P.O.C.T. RESULTS: N/A December 16, [address] PERFORMED: No IV SITE: Ambulatory: NM only - direct IV injection in the Right antecubital site POST EXAM PIV STATUS: Discontinued PROCEDURE TYPE: NM INJECT: PET/CT BODY SCAN. 19 mCi F18 FDG. Administered By: mo . No other medications given.. ADMINISTRATION TIME: 706 PATIENT DISCHARGED TO: Ambulatory patient, left [place] department area. Is this a therapy: No A Diagnostic radioactive procedure has taken place, with no further precautions necessary other than routine body substance precautions. More information regarding radiation safety can be found using this link: [email or web address] [email or web address]-% 20Diagnostic%20Nuclear%20Medicin e%20Procedures.pdf SIGNATURE: RT Kiran(R) PATIENT NAME: Abdirizak Colindres DATE: December 16, 2024 TIME: 7:12 AM PAGER/CONTACT #: [facility] 12-13-2024 Telephone encounter Note Pt called and is notified of providers message and instructions. Pt voices understanding. Coreen Marsh RN [facility] 12-13-2024 Miscellaneous Notes Pt called and is notified of providers message and instructions. Pt voices understanding. Coreen Marsh RN Please hold simvastatin for 2 weeks. Let me know the day that he sees hematology if his pain is gone. Do not start the remedy from chiropractic. Pt called in and reports he has back pain and provider knows about it. He states he finally went to a chiropractor and they told him that he the last 3 discs in his spine are gone and he has bone spurs. Then they told him all of his problems started from being on Simvastatin, which he thought was for his Prostate and I let him know it is for his cholesterol. Pt states the chiropractor told him he had an organic all natural medication he could take instead. The Pt doesn't remember the name of the medication. He is going to call them and get the name and call back. He would like providers opinion on this. Please call and advise once Pt calls back with medication name.\ Coreen Marsh RN documented in this encounter [facility] 12-13-2024 Telephone encounter Note Please hold simvastatin for 2 weeks. Let me know the day that he sees hematology if his pain is gone. Do not start the remedy from chiropractic. [facility] 12-13-2024 Telephone encounter Note Pt called in and reports he has back pain and provider knows about it. He states he finally went to a chiropractor and they told him that he the last 3 discs in his spine are gone and he has bone spurs. Then they told him all of his problems started from being on Simvastatin, which he thought was for his Prostate and I let him know it is for his cholesterol. Pt states the chiropractor told him he had an organic all natural medication he could take instead. The Pt doesn't remember the name of the medication. He is going to call them and get the name and call back. He would like providers opinion on this. Please call and advise once Pt calls back with medication name.\ Coreen Marsh RN [facility] 12-09-2024 Telephone encounter Note Patient aware. Michelle Lundberg LPN [facility] 12-09-2024 Miscellaneous Notes Patient aware. Michelle Lundberg LPN Patient called requesting sedative for 12/16 pet scan. Please send to [facility] in [place]. documented in this encounter [facility] 12-09-2024 Telephone encounter Note Patient called requesting sedative for 12/16 pet scan. Please send to [facility] in [place]. [facility] Work Phone: 12-06-2024 Note HNO ID: [id number] Author: BRIAN GRAVES LPN Service: ? Author Type: LICENSED NURSE Type: Progress Notes Filed: 12/06/2024 15:16 Note Text: Faxed Sleep study order to [facility]. Brian Graves LPN [facility] 12-05-2024 Telephone encounter Note TC to Pt. Appologized for the inconvience. Pt understood. Brian Graves LPN [facility] 12-05-2024 Miscellaneous Notes TC to Pt. Appologized for the inconvience. Pt understood. Brian Graves LPN Looked up order and faxed to [facility] Sleep Lab. Brian Graves LPN PSG was ordered on 11/07/24. Was it faxed to [facility]? Clemencia Barr APRN.LAMINATION 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 This patient has called to express frustration. He has been waiting 2 months according to him, to have another sleep apnea test [facility]. He stated he failed the first one because he did not sleep well enough for the first one. He said that he was already prescribed the sedative. He was very upset on the phone with me, because he had been transferred 3 time through out phone system. So, I opted to help him. Can someone please contact this patient from clinical to assist? Thank you. documented in this encounter [facility] 12-05-2024 Telephone encounter Note Looked up order and faxed to [facility] Sleep Lab. Brian Graves LPN [facility] 12-05-2024 Telephone encounter Note PSG was ordered on 11/07/24. Was it faxed to [facility]? Clemencia Barr APRN.LAMINATION 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 [facility] Work Phone: 12-05-2024 Telephone encounter Note This patient has called to express frustration. He has been waiting 2 months according to him, to have another sleep apnea test [facility]. He stated he failed the first one because he did not sleep well enough for the first one. He said that he was already prescribed the sedative. He was very upset on the phone with me, because he had been transferred 3 time through out phone system. So, I opted to help him. Can someone please contact this patient from clinical to assist? Thank you. [facility] 12-03-2024 Note HNO ID: [id number] Author: ANJALI JARRELL RN Service: ? Author Type: Registered Nurse Type: Progress Notes Filed: 12/03/2024 13:06 Note Text: OV with [facility] LAMINATION 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 before treatment. Assessment reviewed and unchanged., [facility] 12-03-2024 History of Presen t illness Narrative OV with [facility] LAMINATION 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 before treatment. Assessment reviewed and unchanged., documented in this encounter [facility] 12-03-2024 Note [facility] 12-03-2024 History of Presen t illness Narrative Abdirizak Colindres 1955 12/03/2024 HPI: Abdirizak Colindres is a 69 year old male who presents here today for evaluation for treatment today. Per Dr. Renteria's previous note: H/o pt. had been undergoing lung cancer screening. Had stable nodules. CT abdomen pelvis identified a nonspecific 2.1 cm lesion in segment 8 of the liver that could be further evaluated due to lack of contrast. Was also found to have right lower lobe pulmonary nodules as well as right hilar adenopathy. A PET scan was obtained on 12/14/2023. Patient was found to have hypermetabolic right hilar adenopathy as well as an infrahilar right-sided mass. There were multiple hypermetabolic foci involving both lobes of the liver as well as hypermetabolic periportal and portacaval adenopathy. There is diffuse heterogeneous marrow activity but several discrete foci of increased uptake including the bilateral femoral with SUV of 6.7 in the left proximal femur and bilateral humeri with a 6.6 right proximal humerus lesion. There were bilateral bony pelvis, sacrum and multilevels and thoracolumbar spine max SUV 4 at T12 and max SUV 4.3 at T9. Had a biopsy one of the liver lesions on 01/01/2024. Pathology: Small cell carcinoma. Patient referred by Tyra Martell APRN.CNP for extensive stage small cell lung cancer. The impression and plan will be communicated by way of the shared electronic record or faxed under separate cover letter. HPI: The patient is a 69-year-old male with a past medical history as outlined below. Has been undergoing lung cancer screening. Had stable nodules. Recent CT abdomen pelvis identified a nonspecific 2.1 cm lesion in segment 8 of the liver that could be further evaluated due to lack of contrast. Was also found to have right lower lobe pulmonary nodules as well as right hilar adenopathy. A PET scan was obtained on 12/14/2023. Patient was found to have hypermetabolic right hilar adenopathy as well as an infrahilar right-sided mass. There were multiple hypermetabolic foci involving both lobes of the liver as well as hypermetabolic periportal and portacaval adenopathy. There is diffuse heterogeneous marrow activity but several discrete foci of increased uptake including the bilateral femoral with SUV of 6.7 in the left proximal femur and bilateral humeri with a 6.6 right proximal humerus lesion. There were bilateral bony pelvis, sacrum and multilevels and thoracolumbar spine max SUV 4 at T12 and max SUV 4.3 at T9. Had a biopsy one of the liver lesions on 01/01/2024. Pathology: Small cell carcinoma. Initial consultation 01/12/2024: Has history of ROMIE but hard for him to use CPAP mask. Stopped smoking. Frequent productive cough. No hemoptysis. No wheezing now. Breathing much better since quitting smoking. Good appetite. Borderline DM--on metformin. Balance off. Dysequilibrium in shower if closes his eyes for a few months. History of psoriasis--Treated Dupixant and Cosentyx. Current therapy: 1) Carbo/etoposide/atezolizumab Pt presents today for follow up. Denies new issues. Reports I feel good. Had to reschedule PET as he was not fasting prior to 11/18 appt. He was supposed to have BMP redrawn at that time for elevated kidney function on labs 11/04. Reviewed today. Pt notes that he has been drinking a lot more in the last month or so than he had been before and asked if that may be contributing. Encouraged limiting EtOH and increasing hydration. Denies new aches or pains. No SOB, CP, or palpitations. No HOPKINS, dizziness, or recent changes in vision. No changes in bowel or bladder habits. No rash or skin changes. Denies bleeding or bruising. The ROS is otherwise negative. Past medical history, appointments, medications, allergies reviewed. No changes. EXAM: BP 114/75 Pulse 91 Temp (!) 35.9 C (96.7 F) (Temporal) Wt 126.6 kg (279 lb) SpO2 97% BMI 42.42 kg/m APPEARANCE Well appearing, alert, in no acute distress, well-hydrated, well nourished. MOUTH no mucositis/thrush HEART RRR with normal S1 and S2, no murmurs LUNG clear to auscultation ABDOMEN bowel sounds normoactive, soft, non-tender EXTREMITIES No edema NEURO Awake, alert and oriented x 3, Normal gait, and No involuntary motions. SKIN Skin color, texture, turgor normal, no suspicious rashes or lesions I have performed the physical exam today (12/03/2024) and have edited the note to correlate with current findings. LAB: Lab Results Component Value Date WBC 10.91 12/03/2024 HB 12.8 (L) 12/03/2024 MCV 103.2 (H) 12/03/2024 PLT 260 12/03/2024 Lab Results Component Value Date NA 134 (L) 12/03/2024 K 4.3 12/03/2024 CO2 24 12/03/2024 BUN 21 12/03/2024 CREAT 1.40 (H) 12/03/2024 TBILI 0.3 12/03/2024 TPROT 7.8 12/03/2024 ALB 4.4 12/03/2024 ALKPHOS 114 (H) 12/03/2024 ALT 20 12/03/2024 AST 25 12/03/2024 ASSESSMENT/PLAN: 1. 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) - ICD9: 197.7, ICD10: C78.7 3. Metastatic cancer to bone (HCC) - ICD9: 198.5, ICD10: C79.51 - Overall tolerating tecentriq/zometa well. - Reviewed CBC and CMP with patient today - mildly elevated kidney function again today. Pt notes considerable increase in EtOH in the last month compared to previous. Encouraged increasing hydrating fluids today. - Continue current medications. - Continue zometa every 3 months. - PET scan as scheduled had to be rescheduled - Proceed as scheduled for tecentriq today - Follow up as scheduled. - Pt. aware to call office with any questions/concerns. The patient indicates understanding of these issues and agrees with the plan. Angelic Flores APRN.LAMINATION 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 I spent a total of 30 minutes on the date of the service which included preparing to see the patient, [id number] patient care, completing clinical documentation, obtaining and/or reviewing separately obtained history, performing a medically appropriate examination, counseling and educating the patient/family/caregiver, and ordering medications, tests, or procedures. Portions of this note including HPI, ROS, impression/plan may have been copied forward as to provide important historical information essential in contributing to medical decision making. Documentation has been reviewed and edited as necessary to support clinical decision making for today's visit and to reflect my own independent evaluation of this patient. documented in this encounter [facility] 11-18-2024 History of Presen t illness Narrative RADIOLOGY SERVICE PROGRESS NOTE DATE OF SERVICE: November 18, 2024 TIME OF SERVICE: 724 EVENT: EXAM/PROCEDURE NOT COMPLETED - PATIENT CAME IN FOR HIS PET/CT SCAN HAD A GLASS OF ORANGE JUICE AT 6AM. INSTRUCTED PATIENT TO RESCHEDULE THE TEST. ADDITIONAL EVENT DETAILS: N/A SIGNATURE: RT Kiran(Yessi) PATIENT NAME: Abdirizak Colindres DATE: November 18, 2024 TIME: 7:24 AM PAGER/CONTACT #: documented in this encounter [facility] 11-18-2024 Note HNO ID: [id number] Author: ROGER BROWN RT(R) Service: Nuclear Medicine Author Type: Technologist Type: Progress Notes Filed: 11/18/2024 07:26 Note Text: RADIOLOGY SERVICE PROGRESS NOTE DATE OF SERVICE: November 18, 2024 TIME OF SERVICE: 724 EVENT: EXAM/PROCEDURE NOT COMPLETED - PATIENT CAME IN FOR HIS PET/CT SCAN HAD A GLASS OF ORANGE JUICE AT 6AM. INSTRUCTED PATIENT TO RESCHEDULE THE TEST. ADDITIONAL EVENT DETAILS: N/A SIGNATURE: RT Kiran(Yessi) PATIENT NAME: Abdirizak Colindres DATE: November 18, 2024 TIME: 7:24 AM PAGER/CONTACT #: [facility] 11-12-2024 Telephone encounter Note The following approved medication requests have been transmitted electronically. Requested Prescriptions Pending Prescriptions Disp Refills labetalol (TRANDATE) 100 mg tablet 180 tablet 3 Sig: Take 1 tablet by mouth two times a day. Tyra Martell APRN.CNP [facility] 11-12-2024 Miscellaneous Notes The following approved medication requests have been transmitted electronically. Requested Prescriptions Pending Prescriptions Disp Refills labetalol (TRANDATE) 100 mg tablet 180 tablet 3 Sig: Take 1 tablet by mouth two times a day. Tyra Martell APRN.CNP Patient has been identified by name and date of : yes Patient phones for refill(s): Requested Prescriptions Pending Prescriptions Disp Refills labetalol (TRANDATE) 100 mg tablet 180 tablet 1 Sig: Take 1 tablet by mouth two times a day. Date of last office visit in primary care: 10/15/2024 Date of next office visit in primary care: 02/14/2025 Please advise. Thank you. Dorothy Stephenson MA. Patient has 1 dose left. Please expedite. TY Patient has been identified by name and date of : Yes Patient phones for refill(s): Requested Prescriptions Pending Prescriptions Disp Refills labetalol (TRANDATE) 100 mg tablet 180 tablet 1 Sig: Take 1 tablet by mouth two times a day. Date of last office visit in primary care: 10/15/2024 Date of next office visit in primary care: 02/14/2025 Please advise. Thank you. Agustina Fan. documented in this encounter [facility] 11-12-2024 Telephone encounter Note Patient has been identified by name and date of : yes Patient phones for refill(s): Requested Prescriptions Pending Prescriptions Disp Refills labetalol (TRANDATE) 100 mg tablet 180 tablet 1 Sig: Take 1 tablet by mouth two times a day. Date of last office visit in primary care: 10/15/2024 Date of next office visit in primary care: 02/14/2025 Please advise. Thank you. Dorothy Stephenson MA. [facility] 11-12-2024 Telephone encounter Note Patient has 1 dose left. Please expedite. TY Patient has been identified by name and date of : Yes Patient phones for refill(s): Requested Prescriptions Pending Prescriptions Disp Refills labetalol (TRANDATE) 100 mg tablet 180 tablet 1 Sig: Take 1 tablet by mouth two times a day. Date of last office visit in primary care: 10/15/2024 Date of next office visit in primary care: 02/14/2025 Please advise. Thank you. Agustina Fan. [facility] 11-11-2024 Telephone encounter Note Signed. [facility] 11-11-2024 Miscellaneous Notes Signed. Pt calling in asking why he has an appt on 11/15 as he was just seen 10/15. In review of Ana Martell's OV note on 10/15 and talking with Desirae Huddleston, it appears pt was to be 4 month follow up appt not 4 weeks. Appt tomi from 11/15 to 02/14 for follow up. Also noted in 10/15 OV note that pt was to have a HgbA1c done with his labs that were drawn on 11/04. Appears order was placed for plain hemoglobin not a HgbA1c. Called [facility] and spoke to Clemencia who states that the lab no longer has the blood from 11/04 so new order will need to be placed. In talking with pt, he is getting labs drawn for Dr. Renteria on 11/18 in [place] when he has his PET scan done. New order placed and pended for Ana to sign. documented in this encounter [facility] 11-11-2024 Telephone encounter Note Pt calling in asking why he has an appt on 11/15 as he was just seen 10/15. In review of Ana Martell's OV note on 10/15 and talking with Desirae Huddleston, it appears pt was to be 4 month follow up appt not 4 weeks. Appt tomi from 11/15 to 02/14 for follow up. Also noted in 10/15 OV note that pt was to have a HgbA1c done with his labs that were drawn on 11/04. Appears order was placed for plain hemoglobin not a HgbA1c. Called [facility] and spoke to Clemencia who states that the lab no longer has the blood from 11/04 so new order will need to be placed. In talking with pt, he is getting labs drawn for Dr. Renteria on 11/18 in [place] when he has his PET scan done. New order placed and pended for Ana to sign. [facility] 11-08-2024 Telephone encounter Note VM left for patient advising medication sent to pharmacy and patient to take med with him to sleep lab and take med once there. Advised once order approved will forward everything to [facility] scheduling desk and they will reach out to him to schedule next week sometime. Advised him to call if any questions. Mile Valentin LPN [facility] 11-08-2024 Miscellaneous Notes VM left for patient advising medication sent to pharmacy and patient to take med with him to sleep lab and take med once there. Advised once order approved will forward everything to [facility] scheduling desk and they will reach out to him to schedule next week sometime. Advised him to call if any questions. Mile Valentin LPN Please apologize to pt for me. PSG ordered. Rx for generic Sonata, one pill to take at sleep lab. Clemencia Barr APRN.LAMINATION 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 PDMP website checked and validated. All prescriptions have been APPROPRIATELY filled. No suspicious activity was identified. 11/07/2024 by Clemencia Barr APRN.LAMINATION 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 Kingsley from front desk admin took call from patient stating he had not heard back regarding this. Could we place this order as patient complaining he never heard back from us regarding this. Will call patient once order placed. Noted there is a PSG in the system as well that needs completed. Mile Valentin LPN TC to pt who voiced understanding. Would like to do another sleep study at [facility]. Would be okay with a sleep aid. Uses [facility] in [place]. Lucero Wetzel LPN Because he only slept for 67 minutes at his sleep study, they were unable to do titration study. We need to order another split night study. I can prescribe a sleeping pill for him to take that night at the sleep lab. Does he want the study at [facility] again? Clemencia Barr APRN.KIMBERLY Please see PSG results- Scan on 08/02/2024 by Provider, External, PATerryC: PSG results Lucero Wetzel LPN documented in this encounter [facility] 11-07-2024 Telephone encounter Note Please apologize to pt for me. PSG ordered. Rx for generic Sonata, one pill to take at sleep lab. Clemencia Barr APRN.KIMBERLY PDMP website checked and validated. All prescriptions have been APPROPRIATELY filled. No suspicious activity was identified. 11/07/2024 by Clemencia Barr APRN.KIMBERLY [facility] 11-07-2024 Telephone encounter Note Kingsley from front desk admin took call from patient stating he had not heard back regarding this. Could we place this order as patient complaining he never heard back from us regarding this. Will call patient once order placed. Noted there is a PSG in the system as well that needs completed. Mile Valentin LPN [facility] 11-05-2024 Telephone encounter Note Patient is aware of needing repeat labs on 11/18/2024, and will have them done at [place] while there for PET. Appointment note updated. Michelle Lundberg LPN [facility] 11-05-2024 Miscellaneous Notes Patient is aware of needing repeat labs on 11/18/2024, and will have them done at [place] while there for PET. Appointment note updated. Michelle Lundberg LPN Significant jump in serum Cr. Repeat BMP when gets PET 11/18. Corazon Renteria DO documented in this encounter [facility] 11-05-2024 Note [facility] 11-05-2024 Telephone encounter Note Significant jump in serum Cr. Repeat BMP when gets PET 11/18. Corazon Renteria DO [facility] 11-04-2024 Note [facility] 11-04-2024 History of Presen t illness Narrative Chief Complaint Patient presents with: Established Patient HPI: Abdirizak Colindres is a 69 year old male who presents here today for evaluation for treatment today. Per Dr. Renteria's previous note: H/o pt. had been undergoing lung cancer screening. Had stable nodules. CT abdomen pelvis identified a nonspecific 2.1 cm lesion in segment 8 of the liver that could be further evaluated due to lack of contrast. Was also found to have right lower lobe pulmonary nodules as well as right hilar adenopathy. A PET scan was obtained on 12/14/2023. Patient was found to have hypermetabolic right hilar adenopathy as well as an infrahilar right-sided mass. There were multiple hypermetabolic foci involving both lobes of the liver as well as hypermetabolic periportal and portacaval adenopathy. There is diffuse heterogeneous marrow activity but several discrete foci of increased uptake including the bilateral femoral with SUV of 6.7 in the left proximal femur and bilateral humeri with a 6.6 right proximal humerus lesion. There were bilateral bony pelvis, sacrum and multilevels and thoracolumbar spine max SUV 4 at T12 and max SUV 4.3 at T9. Had a biopsy one of the liver lesions on 01/01/2024. Pathology: Small cell carcinoma. Patient referred by Tyra Martell APRN.CNP for extensive stage small cell lung cancer. The impression and plan will be communicated by way of the shared electronic record or faxed under separate cover letter. HPI: The patient is a 69-year-old male with a past medical history as outlined below. Has been undergoing lung cancer screening. Had stable nodules. Recent CT abdomen pelvis identified a nonspecific 2.1 cm lesion in segment 8 of the liver that could be further evaluated due to lack of contrast. Was also found to have right lower lobe pulmonary nodules as well as right hilar adenopathy. A PET scan was obtained on 12/14/2023. Patient was found to have hypermetabolic right hilar adenopathy as well as an infrahilar right-sided mass. There were multiple hypermetabolic foci involving both lobes of the liver as well as hypermetabolic periportal and portacaval adenopathy. There is diffuse heterogeneous marrow activity but several discrete foci of increased uptake including the bilateral femoral with SUV of 6.7 in the left proximal femur and bilateral humeri with a 6.6 right proximal humerus lesion. There were bilateral bony pelvis, sacrum and multilevels and thoracolumbar spine max SUV 4 at T12 and max SUV 4.3 at T9. Had a biopsy one of the liver lesions on 01/01/2024. Pathology: Small cell carcinoma. Initial consultation 01/12/2024: Has history of ROMIE but hard for him to use CPAP mask. Stopped smoking. Frequent productive cough. No hemoptysis. No wheezing now. Breathing much better since quitting smoking. Good appetite. Borderline DM--on metformin. Balance off. Dysequilibrium in shower if closes his eyes for a few months. History of psoriasis--Treated Dupixant and Cosentyx. Current therapy: 1) Carbo/etoposide/atezolizumab Appetite:Not much. I can't taste or smell since chemo. Energy level:I'm alright. It's my back. Denies fevers or recent illness. Mouth:denies sores Resp:denies new cough or sob Cardiac:denies chest pain/palpitations GI:denies abd pain, n/v, +diarrhea-followed by PCP for this :denies dysuria/hematuria Extrem:denies new pain, chronic back pain Neuro:denies symptoms of neuropathy Skin:denies rashes Heme:denies bleeding The ROS is otherwise negative. Past medical history, appointments, medications, allergies reviewed. No changes. EXAM: BP 105/54 Pulse 91 Temp 36.4 C (97.6 F) (Temporal) Wt 124.8 kg (275 lb 3.2 oz) SpO2 98% BMI 41.84 kg/m APPEARANCE Well appearing, alert, in no acute distress, well-hydrated, well nourished. MOUTH no mucositis/thrush HEART RRR with normal S1 and S2, no murmurs LUNG clear to auscultation LYMPH NODES No cervical lymphadenopathy, No supraclavicular lymphadenopathy, and No axillary lymphadenopathy. ABDOMEN bowel sounds normoactive, soft, non-tender EXTREMITIES No edema NEURO Awake, alert and oriented x 3, Normal gait, and No involuntary motions. SKIN Skin color, texture, turgor normal, no suspicious rashes or lesions LABS: Latest Ref Rng 09/09/2024 10/07/2024 11/04/2024 WBC 3.70 - 11.00 k/uL 10.73 9.80 7.66 RBC 4.20 - 6.00 m/uL 4.40 3.99 (L) 3.19 (L) Hemoglobin 13.0 - 17.0 g/dL 13.7 13.0 10.7 (L) Hematocrit 39.0 - 51.0 % 42.0 38.5 (L) 32.7 (L) MCV 80.0 - 100.0 fL 95.5 96.5 102.5 (H) MCH 26.0 - 34.0 pg 31.1 32.6 33.5 MCHC 30.5 - 36.0 g/dL 32.6 33.8 32.7 RDW-CV 11.5 - 15.0 % 18.5 (H) 17.2 (H) 17.2 (H) Platelet Count 150 - 400 k/uL 233 230 242 MPV 9.0 - 12.7 fL 10.1 10.6 9.8 Neut% % 77.9 75.4 71.4 Abs Neut (ANC) 1.45 - 7.50 k/uL 8.35 (H) 7.38 5.47 Lymph% % 11.9 14.2 16.6 Abs Lymph 1.00 - 4.00 k/uL 1.28 1.39 1.27 Bibb% % 7.8 7.4 8.7 Abs Bibb <0.87 k/uL 0.84 0.73 0.67 Eosin% % 1.1 1.5 1.8 Abs Eosin <0.46 k/uL 0.12 0.15 0.14 Baso% % 0.5 0.5 0.3 Abs Baso <0.11 k/uL 0.05 0.05 <0.03 Immature Gran % % 0.8 1.0 1.2 IMMATURE GRANS (ABS) <0.10 k/uL 0.09 0.10 (H) 0.09 NRBC /100 WBC 0.0 0.0 0.0 Absolute nRBC <0.01 k/uL <0.01 <0.01 <0.01 DTYPE Auto Auto Auto CMP/Mag: Pending ASSESSMENT/PLAN: 1. 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) - ICD9: 197.7, ICD10: C78.7 3. Metastatic cancer to bone (HCC) - ICD9: 198.5, ICD10: C79.51 - Overall tolerating tecentriq/zometa well. - Reviewed CBC with pt. - CMP/Mag pending. - Continue current medications. - Continue zometa every 3 months. - PET scan as scheduled. - Proceed as scheduled for tecentriq today pending labs. - Follow up as scheduled. - Pt. aware to call office with any questions/concerns. The patient indicates understanding of these issues and agrees with the plan. All documentation from previous visit of 10/07/24-Dr. Renteria was copied and pasted, documentation has been reviewed and edited as necessary for today's visit. Koffi Huerta APRN.KIMBERLY documented in this encounter [facility] 10-28-2024 Telephone encounter Note Pt called and is notified of providers message. Pt voices understanding. Coreen Marsh RN [facility] 10-28-2024 Miscellaneous Notes Pt called and is notified of providers message. Pt voices understanding. Coreen Marsh RN The following approved medication requests have been transmitted electronically. Requested Prescriptions Signed Prescriptions Disp Refills naltrexone 50 mg tablet 90 tablet 1 Sig: Take 1 tablet by mouth once daily. Authorizing Provider: TYRA MARTELL APRN.CNP Prescription Refill Information The patient has been identified by name and date of : Yes Caregiver verified no other encounters exist for this prescription request: Yes Caregiver confirmed with patient/requestor that no other refills are due, in the near future, with this provider at this time: Yes The last office visit in the department: 10/15/24 Does the patient have a future office visit with this provider/department: Yes Requested Prescriptions Pending Prescriptions Disp Refills naltrexone 50 mg tablet 90 tablet 1 Sig: Take 1 tablet by mouth once daily. Patient only has one pill left. Please send today. Jaja Yuan October 28, 2024 12:28 PM documented in this encounter [facility] 10-28-2024 Telephone encounter Note The following approved medication requests have been transmitted electronically. Requested Prescriptions Signed Prescriptions Disp Refills naltrexone 50 mg tablet 90 tablet 1 Sig: Take 1 tablet by mouth once daily. Authorizing Provider: TYRA MARTELL APRN.CNP [facility] 10-28-2024 Telephone encounter Note Prescription Refill Information The patient has been identified by name and date of : Yes Caregiver verified no other encounters exist for this prescription request: Yes Caregiver confirmed with patient/requestor that no other refills are due, in the near future, with this provider at this time: Yes The last office visit in the department: 10/15/24 Does the patient have a future office visit with this provider/department: Yes Requested Prescriptions Pending Prescriptions Disp Refills naltrexone 50 mg tablet 90 tablet 1 Sig: Take 1 tablet by mouth once daily. Patient only has one pill left. Please send today. Jaja Yuan October 28, 2024 12:28 PM [facility] 10-23-2024 Telephone encounter Note The following approved medication requests have been transmitted electronically. Requested Prescriptions Signed Prescriptions Disp Refills LORazepam (ATIVAN) 0.5 mg 1 tablet 0 Sig: Take 1 tablet by mouth one time only for 1 dose. about 1 hour prior to PET scan. Authorizing Provider: CORAZON RENTERIA DO [facility] 10-23-2024 Miscellaneous Notes The following approved medication requests have been transmitted electronically. Requested Prescriptions Signed Prescriptions Disp Refills LORazepam (ATIVAN) 0.5 mg 1 tablet 0 Sig: Take 1 tablet by mouth one time only for 1 dose. about 1 hour prior to PET scan. Authorizing Provider: CORAZON RENTERIA DO Dr. Renteria- patient is asking for xanax or Ativan for the PET scan Spoke with patient and scheduled with next available at [place] 11/[address] Renteria- patient is asking for xanax or Ativan for the PET scan. PSS- please contact patient to schedule PET scan at [place]. Michelle Lundberg LPN Thank you. Order filed. Let him know the CT scan showed no convincing sign of cancer but there was according to the radiologist more fullness in the right infrahilar area this may represent an enlarging lymph node but it is unclear. I would like to obtain PET scan to help clarify this.. Please pend order. Corazon Renteria DO documented in this encounter [facility] 10-23-[address] Renteria- patient is asking for xanax or Ativan for the PET scan [facility] 10-23-2024 Telephone encounter Note Spoke with patient and scheduled with next available at [place] 11/18 Marquita Torres [facility] 10-23-[address] Renteria- patient is asking for xanax or Ativan for the PET scan. PSS- please contact patient to schedule PET scan at [place]. Michelle Lundberg LPN [facility] 10-23-2024 Telephone encounter Note Thank you. Order filed. [facility] 10-22-2024 Telephone encounter Note Let him know the CT scan showed no convincing sign of cancer but there was according to the radiologist more fullness in the right infrahilar area this may represent an enlarging lymph node but it is unclear. I would like to obtain PET scan to help clarify this.. Please pend order. Corazon Renteria DO [facility] 10-15-2024 Note Addended by: TYRA MARTELL on: 10/15/2024 02:25 PM Modules accepted: Orders [facility] 10-15-2024 Miscellaneous Notes Addended by: TYRA MARTELL on: 10/15/2024 02:25 PM Modules accepted: Orders documented in this encounter [facility] 10-15-2024 Instructions Tyra Martell APRN.KIMBERLY - 10/15/2024 2:23 PM EDT - Switch to extended-release metformin 500 mg and take two tablets with breakfast; always eat when you take metformin to help reduce diarrhea. - Follow a diet low in sweets and simple carbohydrates: avoid white-flour products (white bread, crackers, rice); choose whole grains, and pair each meal or snack with a protein source (eggs, peanut butter, nuts, sunflower seeds). - Continue tamsulosin at bedtime to improve bladder emptying; your prescription has been refilled for one year. - Change your muscle relaxer to cyclobenzaprine (Flexeril) 10 mg: take one 10 mg tablet with two Aleve each morning for low back muscle pain. Stop methocarbamol. - At your next lab draw on the , we ve added a hemoglobin A1c test. documented in this encounter [facility] 10-15-2024 Note [facility] 10-15-2024 History of Presen t illness Narrative This is a 69 year old male who presents today with: Patient presents with: Follow Up: 4 month exam Diarrhea: X 1 week HISTORY OF PRESENT ILLNESS: Abdirizak Colindres is a 69 year old male. Patient presents with: Follow Up: 4 month exam Diarrhea: X 1 week Harinder is a 69-year-old male with a history of diabetes mellitus, presenting for evaluation of elevated blood glucose levels, diarrhea, and low back pain. Elevated Blood Glucose Levels: - Blood glucose level elevated to 200 mg/dL a few weeks ago. - Attributes elevation to alcohol consumption and missed medication doses. - 's blood glucose level also elevated to 100 mg/dL; both plan to improve diet and reduce alcohol intake. - Takes metformin 500 mg BID with breakfast. Diarrhea: - Watery diarrhea x1 week, approximately twice daily. - Tried Imodium AD with no relief. - Denies chronic diarrhea or constipation. Low Back Pain: - Describes pain as acute arthritis. - Takes Flexeril 10 mg and Aleve BID with good relief. - Denies muscle aches or joint pain elsewhere. Cancer: - Awaiting CT scan results on the ; previous scans showed dormant cancer. Additional History: - Denies weight changes, fever, chills, headaches, changes in hearing or vision, neck swelling, cough, wheezing, dyspnea, heartburn, nausea, emesis, dysuria, hematuria, seizures, CVA, tremors, excessive thirst, or suicidal thoughts. - Recently obtained new hearing aids. - Smokes occasionally, up to three cigarettes on the worst days. - Has advanced directives; Adriel is the decision-maker. 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 Dr Knowles. Rt ARTHRP KNE CONDYLE&PLATU MEDIAL&LAT COMPARTMENTS 04/21/[address] [facility] [address] Strauss - left knee LIVER BIOPSY 01/05/2024 OPTX ANKLE DISLOCATION W/REPAIR/INT/XTRNL FIXJ ORIF Ankle left PAST SURGICAL HISTORY OF 05/22/2007 ORIF left forearm fracture ALLERGIES Patient has no known allergies. MEDICATIONS Current Outpatient Medications Medication Sig simvastatin (ZOCOR) 40 mg tablet TAKE 1 TABLET BY MOUTH EVERYDAY AT BEDTIME levothyroxine (LEVOXYL) 50 mcg tablet Take 1 tablet by mouth once daily. Take on empty stomach. For Thyroid buPROPion (WELLBUTRIN) 75 mg tablet Take 1 tablet by mouth two times a day. methocarbamol 1,000 mg tablet Take 1 tablet by mouth three times a day. For back pain ELIQUIS 5 mg tab(s) Take 1 tablet by mouth two times a day. furosemide (LASIX) 40 mg tablet Take 1 tablet by mouth once daily. metFORMIN (GLUCOPHAGE) 1,000 mg tablet Take 1 tablet by mouth daily with breakfast. erythromycin (ROMYCIN) 5 mg/gram (0.5 %) ophthalmic ointment Use 1 application in the left eye at bedtime as needed. Magnesium Oxide 500 mg magnesium tab Take 1 tablet by mouth two times a day. tamsulosin (FLOMAX) 0.4 mg Take 1 capsule by mouth daily at bedtime. naltrexone 50 mg tablet Take 50 mg by mouth once daily. albuterol HFA (VENTOLIN HFA) 90 mcg/actuation inhaler Inhale 2 Puffs as instructed every 4 hours as needed for wheezing/shortness of breath. labetalol (TRANDATE) 100 mg tablet Take 1 tablet by mouth two times a day. prochlorperazine (COMPAZINE) 10 mg tablet Take 1 tablet by mouth every 6 hours as needed. varenicline (CHANTIX) 1 mg tablet Take 1 tablet by mouth two times a day. guaifenesin/dextromethorphan (GUAIFENESIN DM ORAL) Take by mouth once daily. (Patient not taking: Reported on 08/12/2024) Blood Pressure Monitor 1 Each two times a day. CPAP Initiate Auto PAP @ 5-20 cm of water with humidification. Mask (per patient preference) optional chin strap (if indicated) , filters, tubing, humidifier and lifetime supplies. Blood Pressure Test Kit-Medium kit 1 Kit once daily. No current facility-administered medications for this visit. FAMILY HISTORY Problem Relation Age of Onset Cancer Mother Throat Diabetes Father Alcohol abuse Father Paranoid behavior Father No Known Problems Sister No Known Problems Sister No Known Problems Sister Social History Tobacco Use Smoking status: Former Current packs/day: 0.00 Average packs/day: 0.8 packs/day for 51.0 years (38.3 ttl pk-yrs) Types: Cigarettes Start date: 11/12/1972 Quit date: 11/13/2023 Years since quittin.9 Smokeless tobacco: Never Vaping Use Vaping status: Never Used Substance Use Topics Alcohol use: Yes Alcohol/week: 26.0 standard drinks of alcohol Types: 20 Cans of Beer (12oz), 6 Shots of liquor per week Comment: 2 Drug use: No Comment: past history [place] in the 70's REVIEW OF SYSTEMS Constitutional: (-) fever, (-) chills, (-) weight gain, (-) weight loss Head: (-) headaches Eyes: (-) visual disturbances Ears/Nose/Mouth/Throat: (-) hearing changes Neck: (-) lumps Respiratory: (-) cough, (-) wheeze, (-) shortness of breath Gastrointestinal: (+) diarrhea (one week), (-) heartburn, (-) constipation, (-) nausea, (-) vomiting Genitourinary: (-) dysuria, (-) hematuria Musculoskeletal: (-) muscle aches, (-) joint pain (other than back) Neurological: (-) seizures, (-) strokes, (-) tremors Psychiatric: (-) hopelessness, (-) helplessness, (-) suicidal thoughts Endocrine: (-) excessive thirst EXAM: BP 140/82 Pulse 84 Wt 127 kg (279 lb 15.8 oz) SpO2 97% BMI 42.57 kg/m PHYSICAL EXAM: GENERAL: NAD, alert and oriented. SKIN: Unremarkable, no rash, multiple cuts and abrasions HEAD: Normocephalic. NECK: Supple, no lymphadenopathy, normal thyroid, no carotid bruits. LUNGS: Clear to auscultation bilaterally, no wheezes/rhonchi/rales. HEART: Regular rate and rhythm, no murmurs. No ectopy. EXTREMITIES: Normal, no deformities, no skin discoloration, trace edema. NEURO: Awake, alert and oriented x3, cranial nerves II-XII grossly intact, normal gait, no involuntary motions. LABS: reviewed recent labs ASSESSMENT/PLAN: 1. Prediabetes (R73.03) - Recent hyperglycemia with blood glucose levels reaching 200 mg/dL due to non-adherence to metformin and excessive alcohol consumption. - Educated on dietary modifications to manage blood glucose levels, emphasizing the reduction of sweets and simple carbohydrates, and the importance of pairing carbohydrates with proteins. - Transitioned from immediate-release metformin to extended-release Glucophage XR 500 mg, two tablets with breakfast to mitigate gastrointestinal side effects. - Ordered hemoglobin A1c to be added to the next scheduled lab work on the . - Loperamide 4 x daily as needed for diarrhea ordered 2. Benign prostatic hyperplasia with urinary frequency (N40.1) - Continues tamsulosin at bedtime to improve urinary flow. - Extended prescription duration to one year. 3. Hypertension, essential (I10) - Blood pressure remains stable; no current issues reported. - 160/ 60 on recheck, wide pulse pressure 4. Hyperlipidemia, mixed (E78.2) - No changes in management at this time. 5. Coronary artery calcification seen on CAT scan (I25.10) - No new findings or interventions discussed. 6. 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) (C34.01) 7. 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) (C78.7) - Awaiting results from recent CT scan to assess disease status. - No significant weight loss, fever, or chills reported. - Next oncology follow-up scheduled for the . 8. Degeneration of intervertebral disc of lumbar region, unspecified whether pain present (M51.369) - Reports chronic low back pain. - Prefers Flexeril 10 mg, taken as two 5 mg tablets in the morning with Aleve, providing effective pain relief without sedation. - Discontinued previous muscle relaxant due to ineffectiveness. 9. Alcohol dependence with uncomplicated intoxication (HCC) (F10.220) - Recent episode of excessive alcohol consumption leading to hyperglycemia and missed medication doses. - Discussed the importance of reducing alcohol intake to manage blood glucose levels effectively. Discussed treatment plan and patient voices understanding. Patient's questions answered appropriately. Medications and potential side effects were discussed and patient voices understanding. Return to the office as scheduled or as needed for worsening/no improvement. Tyra Martell APRN.LAMINATION 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 documented in this encounter [facility] 10-15-2024 History of Presen t illness Narrative Radiology Service Progress Note DATE OF SERVICE: October 15, 2024 TIME: 1:54 PM PATIENT IDENTITY VERIFICATION COMPLETED USING TWO (2) STANDARD IDENTIFIERS: Name and Date of confirmed by patient verbally. FALL SCREENING: Has the patient had 2 falls in the last year or 1 fall with injury or currently using an Ambulatory Assistive Device (Walker, Cane, Wheelchair, Crutches, etc.)? No PATIENT GENDER DATA: Assigned male at PATIENT RELEVANT IMPLANT DATA REVIEWED: Yes PATIENT PRESENTS WITH AN IMPLANTABLE OR ATTACHED CONVEYOR TECHNICIAN: No ALLERGIES: Reviewed and unchanged CONTRAST ALLERGY: NO. EXAM: CT -CONTRAST INDUCED NEPHROPATHY RISK FACTORS: Patient age > 60 years CREATININE: Creatinine Date Value Ref Range Status 10/07/2024 0.97 0.73 - 1.22 mg/dL Final 09/09/2024 1.14 0.73 - 1.22 mg/dL Final 08/12/2024 0.96 0.73 - 1.22 mg/dL Final Estimated Glomerular Filtration Rate Date Value Ref Range Status 10/07/2024 85 >=60 mL/min/1.73m Final Comment: Estimated Glomerular Filtration Rate (eGFR) is calculated using the 2020 CKD-EPI creatinine equation. This equation utilizes serum creatinine, sex, and age as parameters. The creatinine assay has traceable calibration to isotope dilution-mass spectrometry. Refer to KDIGO guidelines for clinical interpretation. In patients with unstable renal function, e.g. those with acute kidney injury, the eGFR may not accurately reflect actual GFR. eGFR- Date Value Ref Range Status 06/10/2021 >60 Final P.O.C.T. RESULTS: POC done: Yes, See Lab Tab October 15, 2024 TREATMENT: N/A PERIPHERAL IV DATA: Ambulatory: A peripheral IV was started in the Left antecubital site with a Angio cath: 22 gauge. RADIOLOGY DEPARTMENT: CT; Exam(s) Completed: Chest Abdomen Pelvis SIGNATURE: RT Marbin(R) PATIENT NAME: Abdirizak Colindres DATE: October 15, 2024 TIME: 1:54 PM documented in this encounter [facility] 10-15-2024 Note [facility] 10-07-2024 Note [facility] 10-07-2024 History of Presen t illness Narrative Oncologic problem(s): 1) Extensive stage small cell lung cancer. HPI: The patient is a 69-year-old male with a past medical history as outlined below. Had been undergoing lung cancer screening. Had stable nodules. CT abdomen pelvis identified a nonspecific 2.1 cm lesion in segment 8 of the liver that could be further evaluated due to lack of contrast. Was also found to have right lower lobe pulmonary nodules as well as right hilar adenopathy. A PET scan was obtained on 12/14/2023. Patient was found to have hypermetabolic right hilar adenopathy as well as an infrahilar right-sided mass. There were multiple hypermetabolic foci involving both lobes of the liver as well as hypermetabolic periportal and portacaval adenopathy. There is diffuse heterogeneous marrow activity but several discrete foci of increased uptake including the bilateral femoral with SUV of 6.7 in the left proximal femur and bilateral humeri with a 6.6 right proximal humerus lesion. There were bilateral bony pelvis, sacrum and multilevels and thoracolumbar spine max SUV 4 at T12 and max SUV 4.3 at T9. Had a biopsy one of the liver lesions on 01/01/2024. Pathology: Small cell carcinoma. Patient referred by Tyra Martell APRN.CNP for extensive stage small cell lung cancer. The impression and plan will be communicated by way of the shared electronic record or faxed under separate cover letter. HPI: The patient is a 69-year-old male with a past medical history as outlined below. Has been undergoing lung cancer screening. Had stable nodules. Recent CT abdomen pelvis identified a nonspecific 2.1 cm lesion in segment 8 of the liver that could be further evaluated due to lack of contrast. Was also found to have right lower lobe pulmonary nodules as well as right hilar adenopathy. A PET scan was obtained on 12/14/2023. Patient was found to have hypermetabolic right hilar adenopathy as well as an infrahilar right-sided mass. There were multiple hypermetabolic foci involving both lobes of the liver as well as hypermetabolic periportal and portacaval adenopathy. There is diffuse heterogeneous marrow activity but several discrete foci of increased uptake including the bilateral femoral with SUV of 6.7 in the left proximal femur and bilateral humeri with a 6.6 right proximal humerus lesion. There were bilateral bony pelvis, sacrum and multilevels and thoracolumbar spine max SUV 4 at T12 and max SUV 4.3 at T9. Had a biopsy one of the liver lesions on 01/01/2024. Pathology: Small cell carcinoma. Initial consultation 01/12/2024: Has history of ROMIE but hard for him to use CPAP mask. Stopped smoking. Frequent productive cough. No hemoptysis. No wheezing now. Breathing much better since quitting smoking. Good appetite. Borderline DM--on metformin. Balance off. Dysequilibrium in shower if closes his eyes for a few months. History of psoriasis--Treated Dupixant and Cosentyx. Current therapy: 1) Carbo/etoposide/atezolizumab Presents for ongoing oncologic management. Interim history: He continues to tolerate treatment very well. Remains active. 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 Normal appetite. No dyspnea with moderate exertion. No exacerbation of psoriasis. 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 Dr Knowles. Rt ARTHRP KNE CONDYLE&PLATU MEDIAL&LAT COMPARTMENTS 04/21/[address] [facility] [address] Strauss - left knee LIVER BIOPSY 01/05/2024 OPTX ANKLE DISLOCATION W/REPAIR/INT/XTRNL FIXJ ORIF Ankle left PAST SURGICAL HISTORY OF 05/22/2007 ORIF left forearm fracture ALLERGIES No Known Allergies Current Outpatient Medications Medication Sig simvastatin (ZOCOR) 40 mg tablet TAKE 1 TABLET BY MOUTH EVERYDAY AT BEDTIME levothyroxine (LEVOXYL) 50 mcg tablet Take 1 tablet by mouth once daily. Take on empty stomach. For Thyroid buPROPion (WELLBUTRIN) 75 mg tablet Take 1 tablet by mouth two times a day. methocarbamol 1,000 mg tablet Take 1 tablet by mouth three times a day. For back pain ELIQUIS 5 mg tab(s) Take 1 tablet by mouth two times a day. furosemide (LASIX) 40 mg tablet Take 1 tablet by mouth once daily. metFORMIN (GLUCOPHAGE) 1,000 mg tablet Take 1 tablet by mouth daily with breakfast. erythromycin (ROMYCIN) 5 mg/gram (0.5 %) ophthalmic ointment Use 1 application in the left eye at bedtime as needed. Magnesium Oxide 500 mg magnesium tab Take 1 tablet by mouth two times a day. tamsulosin (FLOMAX) 0.4 mg Take 1 capsule by mouth daily at bedtime. naltrexone 50 mg tablet Take 50 mg by mouth once daily. albuterol HFA (VENTOLIN HFA) 90 mcg/actuation inhaler Inhale 2 Puffs as instructed every 4 hours as needed for wheezing/shortness of breath. Blood Pressure Monitor 1 Each two times a day. labetalol (TRANDATE) 100 mg tablet Take 1 tablet by mouth two times a day. prochlorperazine (COMPAZINE) 10 mg tablet Take 1 tablet by mouth every 6 hours as needed. varenicline (CHANTIX) 1 mg tablet Take 1 tablet by mouth two times a day. CPAP Initiate Auto PAP @ 5-20 cm of water with humidification. Mask (per patient preference) optional chin strap (if indicated) , filters, tubing, humidifier and lifetime supplies. Blood Pressure Test Kit-Medium kit 1 Kit once daily. guaifenesin/dextromethorphan (GUAIFENESIN DM ORAL) Take by mouth once daily. (Patient not taking: Reported on 08/12/2024) No current facility-administered medications for this visit. Social History Tobacco Use Smoking status: Former Current packs/day: 0.00 Average packs/day: 0.8 packs/day for 51.0 years (38.3 ttl pk-yrs) Types: Cigarettes Start date: 11/12/1972 Quit date: 11/13/2023 Years since quittin.9 Smokeless tobacco: Never Vaping Use Vaping status: Never Used Substance Use Topics Alcohol use: Yes Alcohol/week: 26.0 standard drinks of alcohol Types: 20 Cans of Beer (12oz), 6 Shots of liquor per week Comment: 2 Drug use: No Comment: past history [place] in the 70's Family History Problem Relation Age of Onset Cancer Mother Throat Diabetes Father Alcohol abuse Father Paranoid behavior Father No Known Problems Sister No Known Problems Sister No Known Problems Sister ROS: Constitutional: No fever. No drenching night sweats. Neuro: No recent HOPKINS. HEENT: No recent change in voice, vision or hearing. Resp: See above. CVS: No exertional chest pain, PND or orthopnea. GI: No reflux, n/v, no abdominal pain, bloating or distension. No black or bloody stools. : No dysuria or gross hematuria. Endo: No hot flashes. Musculoskeletal: See above. Derm: See above. Heme: No unusual bleeding and unexplained bruising. Psych: Normal mood. PHYSICAL EXAM: Vitals: Blood pressure 123/81, pulse 94, temperature 36.2 C (97.1 F), temperature source Temporal, weight 126.1 kg (278 lb), SpO2 96%. Well-appearing and in no acute distress. EYES: Sclerae are anicteric bilaterally. LYMPHATIC: There is no palpable cervical, supraclavicular, axillary adenopathy. CARDIOVASCULAR: Rhythm is regular. ABDOMEN: The abdomen is obese and nondistended. Extremities: Mild chronic appearing lower extremity swelling bilaterally. SKIN: No psoriasis type rash. 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 Diagnosed with borderline diabetes and has a history of psoriasis treated with Dupixent and Cosentyx in the past. -Aware goals of care are palliation and prolongation of survival. -He continues to tolerate treatment overall very well. -No progression of psoriasis -No symptoms from bone, liver and abdominal adenopathy. Plan: -Okay for atezolizumab today. -Continue monitoring thyroid function tests. -Continue current dose of levothyroxine. -Kenalog lotion prn itch. -Continue every 3-month Zometa. -CTs already scheduled for next week. -Monitor counts. Portions of this documentation were copied and pasted from my previous office visit note dated 08/12/2024 in order to provide a cohesive continuity of the history. The note has been reviewed and edited and updated as necessary. Corazon Renteria DO documented in this encounter [facility] 09-26-2024 Progress note Formatting of t his note might be different from the original. Cholesterol levels are normal. Please continue medication as prescribed. [facility] 09-26-2024 Miscellaneous Notes Cholesterol levels are normal. Please continue medication as prescribed. documented in this encounter [facility] 09-09-2024 History of Presen t illness Narrative Oncologic problem(s): 1) Extensive stage small cell lung cancer. HPI: The patient is a 69-year-old male with a past medical history as outlined below. Had been undergoing lung cancer screening. Had stable nodules. CT abdomen pelvis identified a nonspecific 2.1 cm lesion in segment 8 of the liver that could be further evaluated due to lack of contrast. Was also found to have right lower lobe pulmonary nodules as well as right hilar adenopathy. A PET scan was obtained on 12/14/2023. Patient was found to have hypermetabolic right hilar adenopathy as well as an infrahilar right-sided mass. There were multiple hypermetabolic foci involving both lobes of the liver as well as hypermetabolic periportal and portacaval adenopathy. There is diffuse heterogeneous marrow activity but several discrete foci of increased uptake including the bilateral femoral with SUV of 6.7 in the left proximal femur and bilateral humeri with a 6.6 right proximal humerus lesion. There were bilateral bony pelvis, sacrum and multilevels and thoracolumbar spine max SUV 4 at T12 and max SUV 4.3 at T9. Had a biopsy one of the liver lesions on 01/01/2024. Pathology: Small cell carcinoma. Patient referred by Tyra Martell APRN.CNP for extensive stage small cell lung cancer. The impression and plan will be communicated by way of the shared electronic record or faxed under separate cover letter. HPI: The patient is a 68-year-old male with a past medical history as outlined below. Has been undergoing lung cancer screening. Had stable nodules. Recent CT abdomen pelvis identified a nonspecific 2.1 cm lesion in segment 8 of the liver that could be further evaluated due to lack of contrast. Was also found to have right lower lobe pulmonary nodules as well as right hilar adenopathy. A PET scan was obtained on 12/14/2023. Patient was found to have hypermetabolic right hilar adenopathy as well as an infrahilar right-sided mass. There were multiple hypermetabolic foci involving both lobes of the liver as well as hypermetabolic periportal and portacaval adenopathy. There is diffuse heterogeneous marrow activity but several discrete foci of increased uptake including the bilateral femoral with SUV of 6.7 in the left proximal femur and bilateral humeri with a 6.6 right proximal humerus lesion. There were bilateral bony pelvis, sacrum and multilevels and thoracolumbar spine max SUV 4 at T12 and max SUV 4.3 at T9. Had a biopsy one of the liver lesions on 01/01/2024. Pathology: Small cell carcinoma. Initial consultation 01/12/2024: Has history of ROMEI but hard for him to use CPAP mask. Stopped smoking. Frequent productive cough. No hemoptysis. No wheezing now. Breathing much better since quitting smoking. Good appetite. Borderline DM--on metformin. Balance off. Dysequilibrium in shower if closes his eyes for a few months. History of psoriasis--Treated Dupixant and Cosentyx. Current therapy: 1) Carbo/etoposide/atezolizumab Presents for ongoing oncologic management. Interim history: Feels really good today. Breathing is stable. Hasn't needed his inhaler in awhile. Back pain is about the same. Forgot to take flomax for a day and could really tell for two days. Denies current issues. No hematuria or difficulty emptying bladder. No changes in bowel habits denies diarrhea. Reports he did not tolerate MRI well previously. Denies neuro symptoms. Denies bleeding. No flare of psoriasis. Trying home remedy, a whole lemon a day blended with a little sugar. 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 Dr Knowles. Rt ARTHRP KNE CONDYLE&PLATU MEDIAL&LAT COMPARTMENTS 04/21/[address] [facility] [address] Strauss - left knee LIVER BIOPSY 01/05/2024 OPTX ANKLE DISLOCATION W/REPAIR/INT/XTRNL FIXJ ORIF Ankle left PAST SURGICAL HISTORY OF 05/22/2007 ORIF left forearm fracture ALLERGIES No Known Allergies Current Outpatient Medications Medication Sig simvastatin (ZOCOR) 40 mg tablet TAKE 1 TABLET BY MOUTH EVERYDAY AT BEDTIME levothyroxine (LEVOXYL) 50 mcg tablet Take 1 tablet by mouth once daily. Take on empty stomach. For Thyroid buPROPion (WELLBUTRIN) 75 mg tablet Take 1 tablet by mouth two times a day. methocarbamol 1,000 mg tablet Take 1 tablet by mouth three times a day. For back pain ELIQUIS 5 mg tab(s) Take 1 tablet by mouth two times a day. furosemide (LASIX) 40 mg tablet Take 1 tablet by mouth once daily. metFORMIN (GLUCOPHAGE) 1,000 mg tablet Take 1 tablet by mouth daily with breakfast. erythromycin (ROMYCIN) 5 mg/gram (0.5 %) ophthalmic ointment APPLY A SMALL AMOUNT INTO BOTH EYES EVERY NIGHT AT BEDTIME Magnesium Oxide 500 mg magnesium tab Take 1 tablet by mouth two times a day. tamsulosin (FLOMAX) 0.4 mg Take 1 capsule by mouth daily at bedtime. naltrexone 50 mg tablet Take 50 mg by mouth once daily. albuterol HFA (VENTOLIN HFA) 90 mcg/actuation inhaler Inhale 2 Puffs as instructed every 4 hours as needed for wheezing/shortness of breath. Blood Pressure Monitor 1 Each two times a day. labetalol (TRANDATE) 100 mg tablet Take 1 tablet by mouth two times a day. prochlorperazine (COMPAZINE) 10 mg tablet Take 1 tablet by mouth every 6 hours as needed. varenicline (CHANTIX) 1 mg tablet Take 1 tablet by mouth two times a day. CPAP Initiate Auto PAP @ 5-20 cm of water with humidification. Mask (per patient preference) optional chin strap (if indicated) , filters, tubing, humidifier and lifetime supplies. Blood Pressure Test Kit-Medium kit 1 Kit once daily. guaifenesin/dextromethorphan (GUAIFENESIN DM ORAL) Take by mouth once daily. (Patient not taking: Reported on 08/12/2024) No current facility-administered medications for this visit. Social History Tobacco Use Smoking status: Former Current packs/day: 0.00 Average packs/day: 0.8 packs/day for 51.0 years (38.3 ttl pk-yrs) Types: Cigarettes Start date: 11/12/1972 Quit date: 11/13/2023 Years since quittin.8 Smokeless tobacco: Never Vaping Use Vaping status: Never Used Substance Use Topics Alcohol use: Yes Alcohol/week: 26.0 standard drinks of alcohol Types: 20 Cans of Beer (12oz), 6 Shots of liquor per week Comment: 2 Drug use: No Comment: past history [place] in the 70's Family History Problem Relation Age of Onset Cancer Mother Throat Diabetes Father Alcohol abuse Father Paranoid behavior Father No Known Problems Sister No Known Problems Sister No Known Problems Sister ROS: Constitutional: No fever. No drenching night sweats. All systems reviewed on 09/09/2024 with pertinent positives and negatives as outlined in the interval history. PHYSICAL EXAM: Vitals: Blood pressure 127/81, pulse 84, temperature 36.8 C (98.2 F), temperature source Temporal, weight 127.5 kg (281 lb), SpO2 98%. Well-appearing and in no acute distress. EYES: Sclerae are anicteric bilaterally. LYMPHATIC: There is no palpable cervical, supraclavicular, axillary adenopathy. CARDIOVASCULAR: Rhythm is regular. ABDOMEN: The abdomen is obese and nondistended. Extremities: Mild chronic appearing lower extremity swelling bilaterally. SKIN: No psoriasis type rash. I have performed the physical exam today (09/09/2024) and have edited the note to correlate with current findings. 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 Assessment: -The patient is a 69-year-old male with a past medical history as outlined above. Diagnosed with borderline diabetes and has a history of psoriasis treated with Dupixent and Cosentyx in the past. -Aware goals of care are palliation and prolongation of survival. -He is tolerating treatment overall very well. No progression of psoriasis -No symptoms from bone, liver and abdominal adenopathy. -Macrocytic anemia continues to improve. -Reviewed results recent MRI--not clear why it was ordered. - known mets to bone and liver at time of initial diagnosis. Will continue to follow with CT scans Plan: -Okay for atezolizumab today. -Continue monitoring thyroid function tests. -Continue current dose of levothyroxine. -Kenalog lotion prn itch. -Continue every 3-month Zometa. -Repeat CT 2 months and consider MRI brain then as well., ordered today to be scheduled end of September. -Monitor counts. Advised to call with any questions or concerns. Angelic Flores APRN.LAMINATION 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 I spent a total of 30 minutes on the date of the service which included preparing to see the patient, [id number] patient care, completing clinical documentation, obtaining and/or reviewing separately obtained history, and counseling and educating the patient/family/caregiver. Portions of this note including HPI, ROS, impression/plan may have been copied forward as to provide important historical information essential in contributing to medical decision making. Documentation has been reviewed and edited as necessary to support clinical decision making for today's visit and to reflect my own independent evaluation of this patient. documented in this encounter [facility] 09-09-2024 Note [facility] 09-02-2024 Telephone encounter Note The original prescription was discontinued on 09/29/2023 by Marty Saravia DO for the following reason: Adjust Sig - Block E-Cancel. Renewing this prescription may not be appropriate. [facility] 09-02-2024 Miscellaneous Notes The original prescription was discontinued on 09/29/2023 by Marty Saravia DO for the following reason: Adjust Sig - Block E-Cancel. Renewing this prescription may not be appropriate. documented in this encounter [facility] 08-12-2024 Telephone encounter Note TC to pt who voiced understanding. Would like to do another sleep study at [facility]. Would be okay with a sleep aid. Uses [facility] in [place]. Lucero Wetzel LPN [facility] 08-12-2024 Telephone encounter Note Because he only slept for 67 minutes at his sleep study, they were unable to do titration study. We need to order another split night study. I can prescribe a sleeping pill for him to take that night at the sleep lab. Does he want the study at [facility] again? Clemencia Barr APRN.LAMINATION 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 [facility] 08-12-2024 Telephone encounter Note Please see PSG results- Scan on 08/02/2024 by Provider, JUSTUS OjedaC: PSG results Lucero Wetzel LPN [facility] 08-12-2024 Note HNO ID: [id number] Author: RUTH RODRIGUEZ RN Service: ? Author Type: Registered Nurse Type: Progress Notes Filed: 08/12/2024 10:45 Note Text: Pt. Was seen by Dr. Renteria prior to treatment. [facility] 08-12-2024 History of Presen t illness Narrative Pt. Was seen by Dr. Renteria prior to treatment. documented in this encounter [facility] 08-12-2024 Note [facility] 08-12-2024 History of Presen t illness Narrative Oncologic problem(s): 1) Extensive stage small cell lung cancer. HPI: The patient is a 69-year-old male with a past medical history as outlined below. Had been undergoing lung cancer screening. Had stable nodules. CT abdomen pelvis identified a nonspecific 2.1 cm lesion in segment 8 of the liver that could be further evaluated due to lack of contrast. Was also found to have right lower lobe pulmonary nodules as well as right hilar adenopathy. A PET scan was obtained on 12/14/2023. Patient was found to have hypermetabolic right hilar adenopathy as well as an infrahilar right-sided mass. There were multiple hypermetabolic foci involving both lobes of the liver as well as hypermetabolic periportal and portacaval adenopathy. There is diffuse heterogeneous marrow activity but several discrete foci of increased uptake including the bilateral femoral with SUV of 6.7 in the left proximal femur and bilateral humeri with a 6.6 right proximal humerus lesion. There were bilateral bony pelvis, sacrum and multilevels and thoracolumbar spine max SUV 4 at T12 and max SUV 4.3 at T9. Had a biopsy one of the liver lesions on 01/01/2024. Pathology: Small cell carcinoma. Patient referred by Tyra Martell APRN.CNP for extensive stage small cell lung cancer. The impression and plan will be communicated by way of the shared electronic record or faxed under separate cover letter. HPI: The patient is a 68-year-old male with a past medical history as outlined below. Has been undergoing lung cancer screening. Had stable nodules. Recent CT abdomen pelvis identified a nonspecific 2.1 cm lesion in segment 8 of the liver that could be further evaluated due to lack of contrast. Was also found to have right lower lobe pulmonary nodules as well as right hilar adenopathy. A PET scan was obtained on 12/14/2023. Patient was found to have hypermetabolic right hilar adenopathy as well as an infrahilar right-sided mass. There were multiple hypermetabolic foci involving both lobes of the liver as well as hypermetabolic periportal and portacaval adenopathy. There is diffuse heterogeneous marrow activity but several discrete foci of increased uptake including the bilateral femoral with SUV of 6.7 in the left proximal femur and bilateral humeri with a 6.6 right proximal humerus lesion. There were bilateral bony pelvis, sacrum and multilevels and thoracolumbar spine max SUV 4 at T12 and max SUV 4.3 at T9. Had a biopsy one of the liver lesions on 01/01/2024. Pathology: Small cell carcinoma. Initial consultation 01/12/2024: Has history of ROMIE but hard for him to use CPAP mask. Stopped smoking. Frequent productive cough. No hemoptysis. No wheezing now. Breathing much better since quitting smoking. Good appetite. Borderline DM--on metformin. Balance off. Dysequilibrium in shower if closes his eyes for a few months. History of psoriasis--Treated Dupixant and Cosentyx. Current therapy: 1) Carbo/etoposide/atezolizumab Presents for ongoing oncologic management. Interim history: Respiratory symptoms stable. Fine. More reflux. Self resolved. Chronic LBP unchanged. No diarrhea. Soft stools x1 daily. No flare of psoriasis. 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 [address] Knowles. Rt ARTHRP KNE CONDYLE&PLATU MEDIAL&LAT COMPARTMENTS 04/21/[address] [facility] [address] Strauss - left knee LIVER BIOPSY 01/05/2024 OPTX ANKLE DISLOCATION W/REPAIR/INT/XTRNL FIXJ ORIF Ankle left PAST SURGICAL HISTORY OF 05/22/2007 ORIF left forearm fracture ALLERGIES No Known Allergies Current Outpatient Medications Medication Sig levothyroxine (LEVOXYL) 50 mcg tablet Take 1 tablet by mouth once daily. Take on empty stomach. For Thyroid buPROPion (WELLBUTRIN) 75 mg tablet Take 1 tablet by mouth two times a day. methocarbamol 1,000 mg tablet Take 1 tablet by mouth three times a day. For back pain ELIQUIS 5 mg tab(s) Take 1 tablet by mouth two times a day. furosemide (LASIX) 40 mg tablet Take 1 tablet by mouth once daily. metFORMIN (GLUCOPHAGE) 1,000 mg tablet Take 1 tablet by mouth daily with breakfast. erythromycin (ROMYCIN) 5 mg/gram (0.5 %) ophthalmic ointment APPLY A SMALL AMOUNT INTO BOTH EYES EVERY NIGHT AT BEDTIME Magnesium Oxide 500 mg magnesium tab Take 1 tablet by mouth two times a day. tamsulosin (FLOMAX) 0.4 mg Take 1 capsule by mouth daily at bedtime. naltrexone 50 mg tablet Take 50 mg by mouth once daily. albuterol HFA (VENTOLIN HFA) 90 mcg/actuation inhaler Inhale 2 Puffs as instructed every 4 hours as needed for wheezing/shortness of breath. labetalol (TRANDATE) 100 mg tablet Take 1 tablet by mouth two times a day. prochlorperazine (COMPAZINE) 10 mg tablet Take 1 tablet by mouth every 6 hours as needed. varenicline (CHANTIX) 1 mg tablet Take 1 tablet by mouth two times a day. simvastatin (ZOCOR) 40 mg tablet Take 1 tablet by mouth daily at bedtime. guaifenesin/dextromethorphan (GUAIFENESIN DM ORAL) Take by mouth once daily. (Patient not taking: Reported on 08/12/2024) Blood Pressure Monitor 1 Each two times a day. CPAP Initiate Auto PAP @ 5-20 cm of water with humidification. Mask (per patient preference) optional chin strap (if indicated) , filters, tubing, humidifier and lifetime supplies. Blood Pressure Test Kit-Medium kit 1 Kit once daily. No current facility-administered medications for this visit. Social History Tobacco Use Smoking status: Former Current packs/day: 0.00 Average packs/day: 0.8 packs/day for 51.0 years (38.3 ttl pk-yrs) Types: Cigarettes Start date: 11/12/1972 Quit date: 11/13/2023 Years since quittin.7 Smokeless tobacco: Never Vaping Use Vaping status: Never Used Substance Use Topics Alcohol use: Yes Alcohol/week: 26.0 standard drinks of alcohol Types: 20 Cans of Beer (12oz), 6 Shots of liquor per week Comment: 2 Drug use: No Comment: past history [place] in the 70's Family History Problem Relation Age of Onset Cancer Mother Throat Diabetes Father Alcohol abuse Father Paranoid behavior Father No Known Problems Sister No Known Problems Sister No Known Problems Sister ROS: Constitutional: No fever. No drenching night sweats. Neuro: No recent HOPKINS. HEENT: No recent change in voice, vision or hearing. Resp: See above. CVS: No exertional chest pain, PND or orthopnea. GI: No reflux, n/v, no abdominal pain, bloating or distension. No black or bloody stools. : No dysuria or gross hematuria. Endo: No hot flashes. Musculoskeletal: See above. Derm: See above. Heme: No unusual bleeding and unexplained bruising. Psych: Normal mood. PHYSICAL EXAM: Vitals: Blood pressure 145/94, pulse 100, temperature 36.6 C (97.9 F), temperature source Temporal, weight 127.2 kg (280 lb 8 oz), SpO2 96%. Well-appearing and in no acute distress. EYES: Sclerae are anicteric bilaterally. LYMPHATIC: There is no palpable cervical, supraclavicular, axillary adenopathy. CARDIOVASCULAR: Rhythm is regular. ABDOMEN: The abdomen is obese and nondistended. Extremities: Mild chronic appearing lower extremity swelling bilaterally. SKIN: No psoriasis type rash. 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 Assessment: -The patient is a 69-year-old male with a past medical history as outlined above. Diagnosed with borderline diabetes and has a history of psoriasis treated with Dupixent and Cosentyx in the past. -Aware goals of care are palliation and prolongation of survival. -He is tolerating treatment overall very well. No progression of psoriasis -No symptoms from bone, liver and abdominal adenopathy. -Macrocytic anemia continues to improve. -Reviewed results recent MRI--not clear why it was ordered. Plan: -Okay for atezolizumab today. -Continue monitoring thyroid function tests. -Continue current dose of levothyroxine. -Kenalog lotion prn itch. -Continue every 3-month Zometa. -Repeat CT 2 months and consider MRI brain then as well. -Monitor counts. Portions of this documentation were copied and pasted from my previous office visit note dated 07/15/2024 in order to provide a cohesive continuity of the history. The note has been reviewed and edited and updated as necessary. Corazon Renteria DO documented in this encounter [facility] 08-08-2024 Progress note Formatting of t his note might be different from the original. MRI shows some enlarged lymph nodes. I did alert Dr. Renteria to review this. Since they were not able to use contrast, the liver imaging was not helpful. [facility] 08-08-2024 Miscellaneous Notes MRI shows some enlarged lymph nodes. I did alert Dr. Renteria to review this. Since they were not able to use contrast, the liver imaging was not helpful. documented in this encounter [facility] 08-08-2024 Telephone encounter Note The following approved medication requests have been transmitted electronically. Requested Prescriptions Pending Prescriptions Disp Refills levothyroxine (LEVOXYL) 50 mcg tablet 90 tablet 3 Sig: Take 1 tablet by mouth once daily. Take on empty stomach. For Thyroid Tyra Martell APRN.CNP [facility] 08-08-2024 Miscellaneous Notes The following approved medication requests have been transmitted electronically. Requested Prescriptions Pending Prescriptions Disp Refills levothyroxine (LEVOXYL) 50 mcg tablet 90 tablet 3 Sig: Take 1 tablet by mouth once daily. Take on empty stomach. For Thyroid Tyra Martell APRN.CNP Prescription Refill Information The patient has been identified by name and date of : Yes Caregiver verified no other encounters exist for this prescription request: Yes Caregiver confirmed with patient/requestor that no other refills are due, in the near future, with this provider at this time: Yes The last office visit in the department: 05/31/2024 Does the patient have a future office visit with this provider/department: Yes Requested Prescriptions Pending Prescriptions Disp Refills levothyroxine (LEVOXYL) 50 mcg tablet 90 tablet 0 Sig: Take 1 tablet by mouth once daily. Take on empty stomach. For Thyroid Clemencia Adams August 07, 2024 9:21 AM documented in this encounter [facility] 08-07-2024 Telephone encounter Note Prescription Refill Information The patient has been identified by name and date of : Yes Caregiver verified no other encounters exist for this prescription request: Yes Caregiver confirmed with patient/requestor that no other refills are due, in the near future, with this provider at this time: Yes The last office visit in the department: 05/31/2024 Does the patient have a future office visit with this provider/department: Yes Requested Prescriptions Pending Prescriptions Disp Refills levothyroxine (LEVOXYL) 50 mcg tablet 90 tablet 0 Sig: Take 1 tablet by mouth once daily. Take on empty stomach. For Thyroid Clemencia Adams August 07, 2024 9:21 AM [facility] 07-31-2024 History of Presen t illness Narrative RADIOLOGY SERVICE PROGRESS NOTE DATE OF SERVICE: July 31, 2024 TIME OF SERVICE: 1000 EVENT: EXAM/PROCEDURE NOT COMPLETED - ABORTED EXAM PATIENT WAS CLAUSTROPHOBIC ADDITIONAL EVENT DETAILS: N/A SIGNATURE: RT Remy(R) PATIENT NAME: Abdirizak Colindres DATE: July 31, 2024 TIME: 1:48 PM PAGER/CONTACT #: documented in this encounter [facility] 07-31-2024 Note [facility] 07-31-2024 Note [facility] 07-31-2024 Note [facility] 07-17-2024 History of Presen t illness Narrative Images from the original note were not included. [facility] New Patient Evaluation PATIENT NAME: Abdirizak Colindres DATE OF SERVICE: July 16, 2024 CONSULTING PROVIDER: Corazon Renteria [address] [facility] [id number] REASON FOR CONSULT: Corazon Renteria sends the patient for an opinion about ROMIE. My findings and recommendations will be transmitted electronically via shared medical record to the consulting provider. HPI: Abdirizak Colindres is a 69 year old male. Sleep-related history: diagnosed with at least moderate ROMIE in 2019 via [facility], he has been on autoCPAP sice then. Now he feels like the machine isn't giving him enough air. After he is asleep he wakes up and feels like his autoCPAP isn't giving him enough pressure, he then takes it off. Sleeps well when he can use PAP all night. He has metastatic lung cancer. Manual review of data from his AirSense 10: Used days for at least 4 hrs Avg 4.6 hrs AHI 3.7 P95 15.5 cmH2O Leak 8 L/min Mask [facility] AirTouch F20 [employer] [facility] SLEEP-WAKE SCHEDULE Bedtime: 9 PM. He does not have a hard time falling asleep. Wake time: 6 AM After falling asleep: he does not usually wake up during the night if using PAP (except more recently with the breathing/pressure issue) but w/o PAP he has nocturia 3x. On weekends, he maintains the same sleep schedule. Average total sleep time (in a 24 hour period): 7-8 hours. SLEEP-RELATED DETAILS Preferred sleep position: side Breathing disturbances and other behaviors during sleep: snoring--loud since childhood, travels around the bed. GERD or aspiration: No Waking up with heart pounding or racing: No Anxiety or rumination: No He does not report having an urge to move the legs in the evening (when resting) that is accompanied or caused by uncomfortable and/or unpleasant sensations in the legs. He has not been told that he has leg kicking during sleep. The patient reports having had the following: Acting out dreams. Frequency: rare, Dream content:driving a truck Vivid dreams on Chantix Excessive daytime sleepiness / fatigue is a problem. Excessive Daytime sleepiness/fatigue has been a problem since his cancer diagnosis. And exacerbated by pain meds for his back. He does not report sleep paralysis or sleep-related hallucinations WAKE-RELATED DETAILS He does not work. He does not have difficulty with memory or concentration. He denies falling asleep or dozing off when driving. He does take naps. He does drink 4 cups caffeinated beverages per day. Coffee There has not been a recent change in weight. Patient Questionnaires Sleep Scores 08/16/2022 PHQ-9 Score 3 PAST TREATMENTS: CPAP 5-20 cmH2O PRIOR SLEEP STUDIES: A Home Sleep Test (HST) performed on 01/30/20 revealed an AHI of 15.5; supine index of 16.4; and a minimum oxygen saturation of 82%. 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 Dr Knowles. Rt ARTHRP KNE CONDYLE&PLATU MEDIAL&LAT COMPARTMENTS 04/21/[address] [facility] [address] Strauss - left knee LIVER BIOPSY 01/05/2024 OPTX ANKLE DISLOCATION W/REPAIR/INT/XTRNL FIXJ ORIF Ankle left PAST SURGICAL HISTORY OF 05/22/2007 ORIF left forearm fracture ACTIVE PROBLEM LIST Major Depressive Disorder, Recurrent Episode (Hcc) Backache PAIN JOINT, KNEE PAIN JOINT, ANKLE Leukocytosis Other Specified Type of Hydrocele Sebaceous Cyst PAIN GROIN Chest Pain, Unspecified Tobacco Use Disorder Hearing Loss in Left Ear Overweight Hypertension, Essential Prediabetes Hyperlipidemia, Mixed Gerd Without Esophagitis Ddd (Degenerative Disc Disease), Lumbar Chronic Midline Low Back Pain Without Sciatica Alcohol Dependence With Uncomplicated Intoxication (Hcc) Positive Colorectal Cancer Screening Using Cologuard Test Coronary Artery Calcification Seen On Cat Scan Small Cell Carcinoma of [place] of Right Lung (Hcc) Metastases to The Liver (Hcc) Metastatic Cancer to Bone (Hcc) Metastatic Cancer to Intra-Abdominal Lymph Nodes (Hcc) Allergies As of Date: 07/17/2024 (No Known Allergies) Fully Assessed 07/17/2024 CURRENT MEDICATIONS: buPROPion (WELLBUTRIN) 75 mg tablet Take 1 tablet by mouth two times a day. methocarbamol 1,000 mg tablet Take 1 tablet by mouth three times a day. For back pain ELIQUIS 5 mg tab(s) Take 1 tablet by mouth two times a day. furosemide (LASIX) 40 mg tablet Take 1 tablet by mouth once daily. metFORMIN (GLUCOPHAGE) 1,000 mg tablet Take 1 tablet by mouth daily with breakfast. erythromycin (ROMYCIN) 5 mg/gram (0.5 %) ophthalmic ointment APPLY A SMALL AMOUNT INTO BOTH EYES EVERY NIGHT AT BEDTIME guaifenesin/dextromethorphan (GUAIFENESIN DM ORAL) Take by mouth once daily. Magnesium Oxide 500 mg magnesium tab Take 1 tablet by mouth two times a day. tamsulosin (FLOMAX) 0.4 mg Take 1 capsule by mouth daily at bedtime. naltrexone 50 mg tablet Take 50 mg by mouth once daily. albuterol HFA (VENTOLIN HFA) 90 mcg/actuation inhaler Inhale 2 Puffs as instructed every 4 hours as needed for wheezing/shortness of breath. Blood Pressure Monitor 1 Each two times a day. labetalol (TRANDATE) 100 mg tablet Take 1 tablet by mouth two times a day. prochlorperazine (COMPAZINE) 10 mg tablet Take 1 tablet by mouth every 6 hours as needed. varenicline (CHANTIX) 1 mg tablet Take 1 tablet by mouth two times a day. simvastatin (ZOCOR) 40 mg tablet Take 1 tablet by mouth daily at bedtime. CPAP Initiate Auto PAP @ 5-20 cm of water with humidification. Mask (per patient preference) optional chin strap (if indicated) , filters, tubing, humidifier and lifetime supplies. Blood Pressure Test Kit-Medium kit 1 Kit once daily. levothyroxine (LEVOXYL) 50 mcg tablet Take 1 tablet by mouth once daily. Take on empty stomach. For Thyroid Review of Systems Constitutional: Positive for fatigue. Negative for recent unintentional weight change. Respiratory: Positive for difficulty breathing. Cardiovascular: Negative for palpitations. Gastrointestinal: Negative for heartburn. Genitourinary: Positive for nocturia. Musculoskeletal: Positive for back pain. Neurological: Negative for headaches and memory loss. SOCIAL HISTORY: Social History Tobacco Use Smoking status: Former Current packs/day: 0.00 Average packs/day: 0.8 packs/day for 51.0 years (38.3 ttl pk-yrs) Types: Cigarettes Start date: 11/12/1972 Quit date: 11/13/2023 Years since quittin.6 Smokeless tobacco: Never Vaping Use Vaping status: Never Used Substance Use Topics Alcohol use: Yes Alcohol/week: 26.0 standard drinks of alcohol Types: 20 Cans of Beer (12oz), 6 Shots of liquor per week Comment: 2 Drug use: No Comment: past history [place] in the 70's FAMILY HISTORY: FAMILY HISTORY Problem Relation Age of Onset Cancer Mother Throat Diabetes Father Alcohol abuse Father Paranoid behavior Father No Known Problems Sister No Known Problems Sister No Known Problems Sister There is no family history of sleep disorders. PHYSICAL EXAMINATION: Vital Signs: BP 137/76 (BP Site: Left Arm, BP Position: Sitting, BP Cuff Size: Extra Large Adult) Pulse 96 Resp 18 Wt 124.7 kg (275 lb) SpO2 98% BMI 41.81 kg/m PHYSICAL EXAM: General appearance: pleasant, NAD but he is slightly winded Mental status: alert and oriented, able to provide own history Constitutional: obese Skin: No visible rashes on exposed skin Neuro: No focal deficits observed, no tremors IMPRESSION/PLAN: G47.33 ROMIE (obstructive sleep apnea) (primary encounter diagnosis) G47.33 Obstructive sleep apnea on CPAP Z78.9 Intolerance of continuous positive airway pressure (CPAP) ventilation C34.01 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 These minor adjustments might help a little bit but we need to get a biPAP titration study for CPAP intolerance. Will get a split night study (split at [facility]) at [facility] (pt choice), biPAP titration for CPAP intolerance to start at 13/8 cmH2O. Include transcutaneous CO2 monitor. EF is 55% so he is ok for ASV if needed. We will contact him with result and plan. Follow up for 31-90 day PAP compliance visit once he has new device Clemencia Barr APRN.KIMBERLY I spent a total of 60+ minutes on the date of the service which included preparing to see the patient, [id number] patient care, completing clinical documentation, obtaining and/or reviewing separately obtained history, performing a medically appropriate examination, counseling and educating the patient/family/caregiver, and ordering medications, tests, or procedures. documented in this encounter [facility] 07-17-2024 Note [facility] 07-15-2024 Note [facility] 07-15-2024 History of Presen t illness Narrative Oncologic problem(s): 1) Extensive stage small cell lung cancer. HPI: The patient is a 69-year-old male with a past medical history as outlined below. Had been undergoing lung cancer screening. Had stable nodules. CT abdomen pelvis identified a nonspecific 2.1 cm lesion in segment 8 of the liver that could be further evaluated due to lack of contrast. Was also found to have right lower lobe pulmonary nodules as well as right hilar adenopathy. A PET scan was obtained on 12/14/2023. Patient was found to have hypermetabolic right hilar adenopathy as well as an infrahilar right-sided mass. There were multiple hypermetabolic foci involving both lobes of the liver as well as hypermetabolic periportal and portacaval adenopathy. There is diffuse heterogeneous marrow activity but several discrete foci of increased uptake including the bilateral femoral with SUV of 6.7 in the left proximal femur and bilateral humeri with a 6.6 right proximal humerus lesion. There were bilateral bony pelvis, sacrum and multilevels and thoracolumbar spine max SUV 4 at T12 and max SUV 4.3 at T9. Had a biopsy one of the liver lesions on 01/01/2024. Pathology: Small cell carcinoma. Patient referred by Tyra Martell APRN.CNP for extensive stage small cell lung cancer. The impression and plan will be communicated by way of the shared electronic record or faxed under separate cover letter. HPI: The patient is a 68-year-old male with a past medical history as outlined below. Has been undergoing lung cancer screening. Had stable nodules. Recent CT abdomen pelvis identified a nonspecific 2.1 cm lesion in segment 8 of the liver that could be further evaluated due to lack of contrast. Was also found to have right lower lobe pulmonary nodules as well as right hilar adenopathy. A PET scan was obtained on 12/14/2023. Patient was found to have hypermetabolic right hilar adenopathy as well as an infrahilar right-sided mass. There were multiple hypermetabolic foci involving both lobes of the liver as well as hypermetabolic periportal and portacaval adenopathy. There is diffuse heterogeneous marrow activity but several discrete foci of increased uptake including the bilateral femoral with SUV of 6.7 in the left proximal femur and bilateral humeri with a 6.6 right proximal humerus lesion. There were bilateral bony pelvis, sacrum and multilevels and thoracolumbar spine max SUV 4 at T12 and max SUV 4.3 at T9. Had a biopsy one of the liver lesions on 01/01/2024. Pathology: Small cell carcinoma. Initial consultation 01/12/2024: Has history of ROMIE but hard for him to use CPAP mask. Stopped smoking. Frequent productive cough. No hemoptysis. No wheezing now. Breathing much better since quitting smoking. Good appetite. Borderline DM--on metformin. Balance off. Dysequilibrium in shower if closes his eyes for a few months. History of psoriasis--Treated Dupixant and Cosentyx. Current therapy: 1) Carbo/etoposide/atezolizumab Presents for ongoing oncologic management. Interim history: Still has not required the use of his inhaler. No worsening of SHAH. Occasional cough with some phlegm. Chronic LBP unchanged. No further flare psoriasis on top lateral buttock--itches continues using Kenalog cream prn as previously prescribed by Dr. Frey. Hasn't used in about about two months. Has noticed that his stools are softer but only 1 bowel movement daily. No watery diarrhea. His appetite is good, meaning he gets hungry but does not enjoy eating due to lack of taste and smell. 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 Dr Knowles. Rt ARTHRP KNE CONDYLE&PLATU MEDIAL&LAT COMPARTMENTS 04/21/[address] [facility] [address] Strauss - left knee LIVER BIOPSY 01/05/2024 OPTX ANKLE DISLOCATION W/REPAIR/INT/XTRNL FIXJ ORIF Ankle left PAST SURGICAL HISTORY OF 05/22/2007 ORIF left forearm fracture ALLERGIES No Known Allergies Current Outpatient Medications Medication Sig buPROPion (WELLBUTRIN) 75 mg tablet Take 1 tablet by mouth two times a day. methocarbamol 1,000 mg tablet Take 1 tablet by mouth three times a day. For back pain ELIQUIS 5 mg tab(s) Take 1 tablet by mouth two times a day. furosemide (LASIX) 40 mg tablet Take 1 tablet by mouth once daily. metFORMIN (GLUCOPHAGE) 1,000 mg tablet Take 1 tablet by mouth daily with breakfast. erythromycin (ROMYCIN) 5 mg/gram (0.5 %) ophthalmic ointment APPLY A SMALL AMOUNT INTO BOTH EYES EVERY NIGHT AT BEDTIME guaifenesin/dextromethorphan (GUAIFENESIN DM ORAL) Take by mouth once daily. Magnesium Oxide 500 mg magnesium tab Take 1 tablet by mouth two times a day. tamsulosin (FLOMAX) 0.4 mg Take 1 capsule by mouth daily at bedtime. levothyroxine (LEVOXYL) 50 mcg tablet Take 1 tablet by mouth once daily. Take on empty stomach. For Thyroid naltrexone 50 mg tablet Take 50 mg by mouth once daily. albuterol HFA (VENTOLIN HFA) 90 mcg/actuation inhaler Inhale 2 Puffs as instructed every 4 hours as needed for wheezing/shortness of breath. labetalol (TRANDATE) 100 mg tablet Take 1 tablet by mouth two times a day. prochlorperazine (COMPAZINE) 10 mg tablet Take 1 tablet by mouth every 6 hours as needed. varenicline (CHANTIX) 1 mg tablet Take 1 tablet by mouth two times a day. simvastatin (ZOCOR) 40 mg tablet Take 1 tablet by mouth daily at bedtime. Blood Pressure Monitor 1 Each two times a day. CPAP Initiate Auto PAP @ 5-20 cm of water with humidification. Mask (per patient preference) optional chin strap (if indicated) , filters, tubing, humidifier and lifetime supplies. Blood Pressure Test Kit-Medium kit 1 Kit once daily. No current facility-administered medications for this visit. Social History Tobacco Use Smoking status: Former Current packs/day: 0.00 Average packs/day: 0.8 packs/day for 51.0 years (38.3 ttl pk-yrs) Types: Cigarettes Start date: 11/12/1972 Quit date: 11/13/2023 Years since quittin.6 Smokeless tobacco: Never Vaping Use Vaping status: Never Used Substance Use Topics Alcohol use: Yes Alcohol/week: 26.0 standard drinks of alcohol Types: 20 Cans of Beer (12oz), 6 Shots of liquor per week Comment: 2 Drug use: No Comment: past history [place] in the 70's Family History Problem Relation Age of Onset Cancer Mother Throat Diabetes Father Alcohol abuse Father Paranoid behavior Father No Known Problems Sister No Known Problems Sister No Known Problems Sister ROS: Constitutional: No fever. No drenching night sweats. Neuro: No recent HOPKINS. HEENT: No recent change in voice, vision or hearing. Resp: See above. CVS: No exertional chest pain, PND or orthopnea. GI: No reflux, n/v, no abdominal pain, bloating or distension. No black or bloody stools. : No dysuria or gross hematuria. Endo: No hot flashes. Musculoskeletal: See above. Derm: See above. Heme: No unusual bleeding and unexplained bruising. Psych: Normal mood. PHYSICAL EXAM: Vitals: Blood pressure 138/85, pulse 85, temperature 36.3 C (97.4 F), temperature source Temporal, weight 124.7 kg (275 lb), SpO2 98%. Well-appearing and in no acute distress. EYES: Sclerae are anicteric bilaterally. LYMPHATIC: There is no palpable cervical, supraclavicular, axillary adenopathy. CARDIOVASCULAR: Rhythm is regular. ABDOMEN: The abdomen is obese and nondistended. Extremities: Mild chronic appearing lower extremity swelling bilaterally. SKIN: No psoriasis type rash. 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 Assessment: -The patient is a 69-year-old male with a past medical history as outlined above. Diagnosed with borderline diabetes and has a history of psoriasis treated with Dupixent and Cosentyx in the past. -Goals of care are palliation and prolongation of survival. -He is tolerating treatment overall very well. No rash that suggests progression of psoriasis but does have itch that is responding to Kenalog lotion. -No symptoms from bone, liver and abdominal adenopathy. -Reviewed CT results. SD. -Macrocytic anemia improving--recovering from chemotherapy. Plan: -Continue therapy with atezolizumab. -Okay to use labs from 07/10 for today's dose. -Continue monitoring thyroid function tests. -Continue current dose of levothyroxine. -Kenalog lotion to area of itch as needed. -Continue every 3-month Zometa. -Repeat CT 3 months and consider MRI brain then as well. -Monitor counts. Portions of this documentation were copied and pasted from my previous office visit note dated 06/17/2024 in order to provide a cohesive continuity of the history. The note has been reviewed and edited and updated as necessary. Corazon Renteria DO documented in this encounter [facility] 07-10-2024 History of Presen t illness Narrative Radiology Service Progress Note DATE OF SERVICE: July 10, 2024 TIME: 12:57 PM PATIENT IDENTITY VERIFICATION COMPLETED USING TWO (2) STANDARD IDENTIFIERS: Name and Date of confirmed by patient verbally. FALL SCREENING: Has the patient had 2 falls in the last year or 1 fall with injury or currently using an Ambulatory Assistive Device (Walker, Cane, Wheelchair, Crutches, etc.)? No PATIENT GENDER DATA: Assigned male at PATIENT RELEVANT IMPLANT DATA REVIEWED: Yes PATIENT PRESENTS WITH AN IMPLANTABLE OR ATTACHED CONVEYOR TECHNICIAN: No ALLERGIES: Reviewed and unchanged CONTRAST ALLERGY: NO. EXAM: CT -CONTRAST INDUCED NEPHROPATHY RISK FACTORS: Patient age > 60 years CREATININE: Creatinine Date Value Ref Range Status 07/10/2024 1.01 0.73 - 1.22 mg/dL Final 06/17/2024 0.90 0.73 - 1.22 mg/dL Final 05/20/2024 0.90 0.73 - 1.22 mg/dL Final 05/20/2024 0.90 0.73 - 1.22 mg/dL Final Estimated Glomerular Filtration Rate Date Value Ref Range Status 07/10/2024 81 >=60 mL/min/1.73m Final Comment: Estimated Glomerular Filtration Rate (eGFR) is calculated using the 2020 CKD-EPI creatinine equation. This equation utilizes serum creatinine, sex, and age as parameters. The creatinine assay has traceable calibration to isotope dilution-mass spectrometry. Refer to KDIGO guidelines for clinical interpretation. In patients with unstable renal function, e.g. those with acute kidney injury, the eGFR may not accurately reflect actual GFR. eGFR- Date Value Ref Range Status 06/10/2021 >60 Final P.O.C.T. RESULTS: POC done: Yes, See Lab Tab July 10, 2024 TREATMENT: N/A PERIPHERAL IV DATA: Ambulatory: A peripheral IV was started in the Left antecubital site with a Angio cath: 22 gauge. RADIOLOGY DEPARTMENT: CT; Exam(s) Completed: Chest Abdomen Pelvis SIGNATURE: RT Marbin(R) PATIENT NAME: Abdirizak Colindres DATE: July 10, 2024 TIME: 12:57 PM documented in this encounter [facility] 07-10-2024 Note [facility] 06-17-2024 Note [facility] 06-17-2024 History of Presen t illness Narrative Oncologic problem(s): 1) Extensive stage small cell lung cancer. HPI: The patient is a 69-year-old male with a past medical history as outlined below. Had been undergoing lung cancer screening. Had stable nodules. CT abdomen pelvis identified a nonspecific 2.1 cm lesion in segment 8 of the liver that could be further evaluated due to lack of contrast. Was also found to have right lower lobe pulmonary nodules as well as right hilar adenopathy. A PET scan was obtained on 12/14/2023. Patient was found to have hypermetabolic right hilar adenopathy as well as an infrahilar right-sided mass. There were multiple hypermetabolic foci involving both lobes of the liver as well as hypermetabolic periportal and portacaval adenopathy. There is diffuse heterogeneous marrow activity but several discrete foci of increased uptake including the bilateral femoral with SUV of 6.7 in the left proximal femur and bilateral humeri with a 6.6 right proximal humerus lesion. There were bilateral bony pelvis, sacrum and multilevels and thoracolumbar spine max SUV 4 at T12 and max SUV 4.3 at T9. Had a biopsy one of the liver lesions on 01/01/2024. Pathology: Small cell carcinoma. Patient referred by Tyra Martell APRN.CNP for extensive stage small cell lung cancer. The impression and plan will be communicated by way of the shared electronic record or faxed under separate cover letter. HPI: The patient is a 68-year-old male with a past medical history as outlined below. Has been undergoing lung cancer screening. Had stable nodules. Recent CT abdomen pelvis identified a nonspecific 2.1 cm lesion in segment 8 of the liver that could be further evaluated due to lack of contrast. Was also found to have right lower lobe pulmonary nodules as well as right hilar adenopathy. A PET scan was obtained on 12/14/2023. Patient was found to have hypermetabolic right hilar adenopathy as well as an infrahilar right-sided mass. There were multiple hypermetabolic foci involving both lobes of the liver as well as hypermetabolic periportal and portacaval adenopathy. There is diffuse heterogeneous marrow activity but several discrete foci of increased uptake including the bilateral femoral with SUV of 6.7 in the left proximal femur and bilateral humeri with a 6.6 right proximal humerus lesion. There were bilateral bony pelvis, sacrum and multilevels and thoracolumbar spine max SUV 4 at T12 and max SUV 4.3 at T9. Had a biopsy one of the liver lesions on 01/01/2024. Pathology: Small cell carcinoma. Initial consultation 01/12/2024: Has history of ROMIE but hard for him to use CPAP mask. Stopped smoking. Frequent productive cough. No hemoptysis. No wheezing now. Breathing much better since quitting smoking. Good appetite. Borderline DM--on metformin. Balance off. Dysequilibrium in shower if closes his eyes for a few months. History of psoriasis--Treated Dupixant and Cosentyx. Current therapy: 1) Carbo/etoposide/atezolizumab Presents for ongoing oncologic management. Interim history: Taste and smell still haven't returned. Can barely smell brewing coffee now. Breathing--awesome, I haven't used my inhaler in a while. No worsening of SHAH. Occasional cough with some phlegm. Chronic LBP unchanged. Now using muscle relaxer which helps some. No further flare psoriasis on top lateral buttock--itches continues using Kenalog cream prn as previously prescribed by Dr. Frey. Hasn't used in about a month. No diarrhea. 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 Dr Knowles. Rt ARTHRP KNE CONDYLE&PLATU MEDIAL&LAT COMPARTMENTS 04/21/[address] [facility] [address] Strauss - left knee LIVER BIOPSY 01/05/2024 OPTX ANKLE DISLOCATION W/REPAIR/INT/XTRNL FIXJ ORIF Ankle left PAST SURGICAL HISTORY OF 05/22/2007 ORIF left forearm fracture ALLERGIES No Known Allergies Current Outpatient Medications Medication Sig buPROPion (WELLBUTRIN) 75 mg tablet Take 1 tablet by mouth two times a day. methocarbamol 1,000 mg tablet Take 1 tablet by mouth three times a day. For back pain ELIQUIS 5 mg tab(s) Take 1 tablet by mouth two times a day. furosemide (LASIX) 40 mg tablet Take 1 tablet by mouth once daily. metFORMIN (GLUCOPHAGE) 1,000 mg tablet Take 1 tablet by mouth daily with breakfast. erythromycin (ROMYCIN) 5 mg/gram (0.5 %) ophthalmic ointment APPLY A SMALL AMOUNT INTO BOTH EYES EVERY NIGHT AT BEDTIME guaifenesin/dextromethorphan (GUAIFENESIN DM ORAL) Take by mouth once daily. Magnesium Oxide 500 mg magnesium tab Take 1 tablet by mouth two times a day. tamsulosin (FLOMAX) 0.4 mg Take 1 capsule by mouth daily at bedtime. levothyroxine (LEVOXYL) 50 mcg tablet Take 1 tablet by mouth once daily. Take on empty stomach. For Thyroid naltrexone 50 mg tablet Take 50 mg by mouth once daily. albuterol HFA (VENTOLIN HFA) 90 mcg/actuation inhaler Inhale 2 Puffs as instructed every 4 hours as needed for wheezing/shortness of breath. labetalol (TRANDATE) 100 mg tablet Take 1 tablet by mouth two times a day. prochlorperazine (COMPAZINE) 10 mg tablet Take 1 tablet by mouth every 6 hours as needed. varenicline (CHANTIX) 1 mg tablet Take 1 tablet by mouth two times a day. simvastatin (ZOCOR) 40 mg tablet Take 1 tablet by mouth daily at bedtime. Blood Pressure Monitor 1 Each two times a day. CPAP Initiate Auto PAP @ 5-20 cm of water with humidification. Mask (per patient preference) optional chin strap (if indicated) , filters, tubing, humidifier and lifetime supplies. Blood Pressure Test Kit-Medium kit 1 Kit once daily. No current facility-administered medications for this visit. Social History Tobacco Use Smoking status: Former Current packs/day: 0.00 Average packs/day: 0.8 packs/day for 51.0 years (38.3 ttl pk-yrs) Types: Cigarettes Start date: 11/12/1972 Quit date: 11/13/2023 Years since quittin.5 Smokeless tobacco: Never Vaping Use Vaping status: Never Used Substance Use Topics Alcohol use: Yes Alcohol/week: 26.0 standard drinks of alcohol Types: 20 Cans of Beer (12oz), 6 Shots of liquor per week Comment: 2 Drug use: No Comment: past history [place] in the 70's Family History Problem Relation Age of Onset Cancer Mother Throat Diabetes Father Alcohol abuse Father Paranoid behavior Father No Known Problems Sister No Known Problems Sister No Known Problems Sister ROS: Constitutional: No fever. No drenching night sweats. Neuro: No recent HOPKINS. HEENT: No recent change in voice, vision or hearing. Resp: See above. CVS: No exertional chest pain, PND or orthopnea. GI: No reflux, n/v, no abdominal pain, bloating or distension. No black or bloody stools. : No dysuria or gross hematuria. Endo: No hot flashes. Musculoskeletal: See above. Derm: See above. Heme: No unusual bleeding and unexplained bruising. Psych: Normal mood. PHYSICAL EXAM: Vitals: Blood pressure 131/75, pulse 80, temperature 37.1 C (98.8 F), temperature source Temporal, weight 131.3 kg (289 lb 8 oz), SpO2 97%. Well-appearing and in no acute distress. EYES: Sclerae are anicteric bilaterally. LYMPHATIC: There is no palpable cervical, supraclavicular, axillary adenopathy. CARDIOVASCULAR: Rhythm is regular. ABDOMEN: The abdomen is obese and nondistended. Extremities: Mild chronic appearing lower extremity swelling bilaterally. SKIN: No psoriasis type rash. 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 Assessment: -The patient is a 69-year-old male with a past medical history as outlined above. Diagnosed with borderline diabetes and has a history of psoriasis treated with Dupixent and Cosentyx in the past. -Goals of care are palliation and prolongation of survival. -He is tolerating treatment overall very well. No rash that suggests progression of psoriasis but does have itch that is responding to Kenalog lotion. -No symptoms from bone, liver and abdominal adenopathy. -Macrocytic anemia that is mild and stable. Recovering from chemotherapy. Plan: -Continue therapy with atezolizumab. Okay for today's dose. -Continue monitoring thyroid function tests. -Continue current dose of levothyroxine. -Kenalog lotion to area of itch as needed. -Continue every 3-month Zometa. -Repeat CT prior to OV end of June. -Monitor counts. Portions of this documentation were copied and pasted from my previous office visit note dated 04/22/2024 in order to provide a cohesive continuity of the history. The note has been reviewed and edited and updated as necessary. Corazon Renteria DO documented in this encounter [facility] 06-06-2024 Telephone encounter Note Order sent to [facility] called pt. He is aware [facility] 06-06-2024 Miscellaneous Notes Order sent to [facility] called pt. He is aware Is pt to be taking this medication still. Ana Maria Trevino MA Harinder is calling Tyra Martell APRN.CNP today medication that is not on his current list, but he still taking. Please send to [facility] [place] - He needs by tomorrow. Disp Refills Start End buPROPion (WELLBUTRIN) 75 mg tablet (Discontinued) 180 tablet 1 08/29/2023 05/09/2024 Sig: Take 1 tablet by mouth two times a day. Sent to pharmacy as: buPROPion (WELLBUTRIN) 75 mg tablet Class: Normal Route: ORAL Reason for Discontinue: Discontinued by another Health Care Provider Order: [id number] E-Prescribing Status: Receipt confirmed by pharmacy (08/29/2023 9:13 AM EDT) E-Cancel Status: Request denied by pharmacy (05/09/2024 1:48 PM EST) E-Cancel Status Note: Prescription not found. Contact Pharmacy by other mean Patient has been identified by name and birthdate. Duration of symptoms: N/A Person calling: self Call patient at: at home [phone] (home) [phone] (cell) Was an appointment scheduled: No Closing statement: Results or non-symptom based questions: Thank you for calling [facility], your call will be returned within the next business day. Jaja Yuan documented in this encounter [facility] 06-06-2024 Telephone encounter Note Is pt to be taking this medication still. Ana Maria Trevino MA [facility] 06-06-2024 Telephone encounter Note Harinder is calling Tyra Martell APRN.CNP today medication that is not on his current list, but he still taking. Please send to [facility] [place] - He needs by tomorrow. Disp Refills Start End buPROPion (WELLBUTRIN) 75 mg tablet (Discontinued) 180 tablet 1 08/29/2023 05/09/2024 Sig: Take 1 tablet by mouth two times a day. Sent to pharmacy as: buPROPion (WELLBUTRIN) 75 mg tablet Class: Normal Route: ORAL Reason for Discontinue: Discontinued by another Health Care Provider Order: [id number] E-Prescribing Status: Receipt confirmed by pharmacy (08/29/2023 9:13 AM EDT) E-Cancel Status: Request denied by pharmacy (05/09/2024 1:48 PM EST) E-Cancel Status Note: Prescription not found. Contact Pharmacy by other mean Patient has been identified by name and birthdate. Duration of symptoms: N/A Person calling: self Call patient at: at home [phone] (home) [phone] (cell) Was an appointment scheduled: No Closing statement: Results or non-symptom based questions: Thank you for calling [facility], your call will be returned within the next business day. Jaja Yuan [facility] 05-31-2024 Telephone encounter Note Perfect. Thank you [facility] 05-31-2024 Miscellaneous Notes Perfect. Thank you Pt phoned stating he saw Ana today, and forgot to tell her his prostate is acting up- doesn't flow right. Trouble starting a flow. Reports no other symptoms. Reports he had talked to her about this before and she prescribed medication, flomax. Pt didn't realize that medication would help with the flow. Reports he missed a few doses and maybe that is why the trouble started again. Advised pt he has a refill on the flomax at [facility]. Pt states he will start taking it again, and if having any concerns with the flow will let Ana know. documented in this encounter [facility] 05-31-2024 Telephone encounter Note Pt phoned stating he saw Ana today, and forgot to tell her his prostate is acting up- doesn't flow right. Trouble starting a flow. Reports no other symptoms. Reports he had talked to her about this before and she prescribed medication, flomax. Pt didn't realize that medication would help with the flow. Reports he missed a few doses and maybe that is why the trouble started again. Advised pt he has a refill on the flomax at [facility]. Pt states he will start taking it again, and if having any concerns with the flow will let Ana know. [facility] 05-31-2024 Note Addended by: TYRA MARTELL on: 05/31/2024 09:28 AM Modules accepted: Orders [facility] 05-31-2024 Miscellaneous Notes Addended by: TYRA MARTELL on: 05/31/2024 09:28 AM Modules accepted: Orders documented in this encounter [facility] 05-31-2024 Instructions Tyra Martell APRN.CNP - 05/31/2024 8:31 AM EST 1) Consult to sleep surgeon 2) Increase methocarbamol to 1000mg 3 x day as needed 3) Follow up 4 months documented in this encounter [facility] 05-31-2024 Note [facility] 05-31-2024 History of Presen t illness Narrative This is a 69 year old male who presents today with: Patient presents with: Follow Up HISTORY OF PRESENT ILLNESS: Abdirizak Colindres is a 69 year old male. Patient presents with: Follow Up Left hand / wrist with skin tears. Doesn't want CPAP- would like to find out about INSPIRA Low axial back pain- very seldom radicular Sx. 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 [address] Knowles. Rt ARTHRP KNE CONDYLE&PLATU MEDIAL&LAT COMPARTMENTS 04/21/[address] [facility] [address] Strauss - left knee LIVER BIOPSY 01/05/2024 OPTX ANKLE DISLOCATION W/REPAIR/INT/XTRNL FIXJ ORIF Ankle left PAST SURGICAL HISTORY OF 05/22/2007 ORIF left forearm fracture ALLERGIES Patient has no known allergies. MEDICATIONS Current Outpatient Medications Medication Sig erythromycin (ROMYCIN) 5 mg/gram (0.5 %) ophthalmic ointment APPLY A SMALL AMOUNT INTO BOTH EYES EVERY NIGHT AT BEDTIME guaifenesin/dextromethorphan (GUAIFENESIN DM ORAL) Take by mouth once daily. Magnesium Oxide 500 mg magnesium tab Take 1 tablet by mouth two times a day. ELIQUIS 5 mg tab(s) Take 1 tablet by mouth two times a day. furosemide (LASIX) 40 mg tablet Take 1 tablet by mouth once daily. methocarbamol (ROBAXIN) 500 mg tablet Take 1 tablet by mouth three times a day. For back pain tamsulosin (FLOMAX) 0.4 mg Take 1 capsule by mouth daily at bedtime. levothyroxine (LEVOXYL) 50 mcg tablet Take 1 tablet by mouth once daily. Take on empty stomach. For Thyroid naltrexone 50 mg tablet Take 50 mg by mouth once daily. albuterol HFA (VENTOLIN HFA) 90 mcg/actuation inhaler Inhale 2 Puffs as instructed every 4 hours as needed for wheezing/shortness of breath. Blood Pressure Monitor 1 Each two times a day. labetalol (TRANDATE) 100 mg tablet Take 1 tablet by mouth two times a day. prochlorperazine (COMPAZINE) 10 mg tablet Take 1 tablet by mouth every 6 hours as needed. varenicline (CHANTIX) 1 mg tablet Take 1 tablet by mouth two times a day. simvastatin (ZOCOR) 40 mg tablet Take 1 tablet by mouth daily at bedtime. metFORMIN (GLUCOPHAGE) 1,000 mg tablet Take 1 tablet by mouth daily with breakfast. CPAP Initiate Auto PAP @ 5-20 cm of water with humidification. Mask (per patient preference) optional chin strap (if indicated) , filters, tubing, humidifier and lifetime supplies. Blood Pressure Test Kit-Medium kit 1 Kit once daily. No current facility-administered medications for this visit. FAMILY HISTORY Problem Relation Age of Onset Cancer Mother Throat Diabetes Father Alcohol abuse Father Paranoid behavior Father No Known Problems Sister No Known Problems Sister No Known Problems Sister Social History Tobacco Use Smoking status: Former Current packs/day: 0.00 Average packs/day: 0.8 packs/day for 51.0 years (38.3 ttl pk-yrs) Types: Cigarettes Start date: 11/12/1972 Quit date: 11/13/2023 Years since quittin.5 Smokeless tobacco: Never Vaping Use Vaping status: Never Used Substance Use Topics Alcohol use: Yes Alcohol/week: 26.0 standard drinks of alcohol Types: 20 Cans of Beer (12oz), 6 Shots of liquor per week Comment: 2 Drug use: No Comment: past history [place] in the 70's EXAM: BP 120/78 Pulse 100 Ht 172.7 cm (5' 8) Wt 123.8 kg (273 lb) SpO2 96% BMI 41.51 kg/m PHYSICAL EXAM: Physical Exam Vitals reviewed. Constitutional: Appearance: Normal appearance. HENT: Head: Normocephalic. Cardiovascular: Rate and Rhythm: Normal rate and regular rhythm. Pulses: Normal pulses. Heart sounds: Normal heart sounds. Pulmonary: Effort: Pulmonary effort is normal. Breath sounds: Rales present. Comments: Very fine scattered rales 1/2 up lauren. That do not clear with cough Abdominal: Palpations: Abdomen is soft. Tenderness: There is no abdominal tenderness. There is no guarding. Musculoskeletal: General: Normal range of motion. Comments: Walks w/o assistive device Axial low back pain that does not cause radicular Sx very often Skin: General: Skin is warm and dry. Neurological: Mental Status: He is alert and oriented to person, place, and time. LABS: ASSESSMENT/PLAN: 1. ROMIE (obstructive sleep apnea) - ICD9: 327.23, ICD10: G47.33 (primary diagnosis) Wants an INSPIRA, can't tolerate CPAP - CONSULT TO SLEEP clinic 2. Chronic low back pain with sciatica, sciatica laterality unspecified, unspecified back pain laterality - ICD9: 724.2, 724.3, 338.29, ICD10: M54.40, G89.29 Mechanical low back pain - Muscle relaxant- see orders - METHOCARBAMOL 1,000 MG TABLET increased from 500 mg 3 x day 3. Bilateral low back pain, unspecified chronicity, unspecified whether sciatica present - ICD9: 724.2, ICD10: M54.50 Ongoing, see #2 4. Paroxysmal atrial fibrillation (HCC) - ICD9: 427.31, ICD10: I48.0 Stable on Eliquis, rate 100 - ELIQUIS 5 MG TABLET 5. Generalized edema - ICD9: 782.3, ICD10: R60.1 Improved - FUROSEMIDE 40 MG TABLET 6. Prediabetes - ICD9: 790.29, ICD10: R73.03 Stable on metfomrin - METFORMIN 1,000 MG TABLET 7. Skin tear of hand without complication, sequela - ICD9: 906.1, ICD10: S61.419S Redressed, clean Discussed treatment plan and patient voices understanding. Patient's questions answered appropriately. Medications and potential side effects were discussed and patient voices understanding. Return to the office as scheduled or as needed for worsening/no improvement. Tyra Martell APRN.CNP documented in this encounter [facility] 05-21-2024 Telephone encounter Note Patient returned call and given provider's message below and patient verbalized understanding. Van Mendez RN [facility] 05-21-2024 Miscellaneous Notes Patient returned call and given provider's message below and patient verbalized understanding. Van Mendez RN Left message for patient to return call. Desirae Padgett Ma ----- Message from Tyra Martell sent at 05/20/2024 1:03 PM EST ----- Sodium level decreased. Watch for lightheadedness or dizziness. You have had this in the past and it is not severe but I want you to be aware. Kidney function is normal. Magnesium level is therapeutic. Anemia has improved. documented in this encounter [facility] 05-21-2024 Telephone encounter Note Left message for patient to return call. Desirae Padgett Ma [facility] 05-21-2024 Telephone encounter Note ----- Message from Tyra Martell sent at 05/20/2024 1:03 PM EST ----- Sodium level decreased. Watch for lightheadedness or dizziness. You have had this in the past and it is not severe but I want you to be aware. Kidney function is normal. Magnesium level is therapeutic. Anemia has improved. [facility] 05-20-2024 History of Presen t illness Narrative Abdirizak Colindres 1955 05/20/2024 Oncologic problem(s): 1) Extensive stage small cell lung cancer. HPI: The patient is a 69-year-old male with a past medical history as outlined below. Has been undergoing lung cancer screening. Had stable nodules. Recent CT abdomen pelvis identified a nonspecific 2.1 cm lesion in segment 8 of the liver that could be further evaluated due to lack of contrast. Was also found to have right lower lobe pulmonary nodules as well as right hilar adenopathy. A PET scan was obtained on 12/14/2023. Patient was found to have hypermetabolic right hilar adenopathy as well as an infrahilar right-sided mass. There were multiple hypermetabolic foci involving both lobes of the liver as well as hypermetabolic periportal and portacaval adenopathy. There is diffuse heterogeneous marrow activity but several discrete foci of increased uptake including the bilateral femoral with SUV of 6.7 in the left proximal femur and bilateral humeri with a 6.6 right proximal humerus lesion. There were bilateral bony pelvis, sacrum and multilevels and thoracolumbar spine max SUV 4 at T12 and max SUV 4.3 at T9. Had a biopsy one of the liver lesions on 01/01/2024. Pathology: Small cell carcinoma. Patient referred by Tyra Martell APRN.CNP for extensive stage small cell lung cancer. The impression and plan will be communicated by way of the shared electronic record or faxed under separate cover letter. HPI: The patient is a 68-year-old male with a past medical history as outlined below. Has been undergoing lung cancer screening. Had stable nodules. Recent CT abdomen pelvis identified a nonspecific 2.1 cm lesion in segment 8 of the liver that could be further evaluated due to lack of contrast. Was also found to have right lower lobe pulmonary nodules as well as right hilar adenopathy. A PET scan was obtained on 12/14/2023. Patient was found to have hypermetabolic right hilar adenopathy as well as an infrahilar right-sided mass. There were multiple hypermetabolic foci involving both lobes of the liver as well as hypermetabolic periportal and portacaval adenopathy. There is diffuse heterogeneous marrow activity but several discrete foci of increased uptake including the bilateral femoral with SUV of 6.7 in the left proximal femur and bilateral humeri with a 6.6 right proximal humerus lesion. There were bilateral bony pelvis, sacrum and multilevels and thoracolumbar spine max SUV 4 at T12 and max SUV 4.3 at T9. Had a biopsy one of the liver lesions on 01/01/2024. Pathology: Small cell carcinoma. Initial consultation 01/12/2024: Has history of ROMIE but hard for him to use CPAP mask. Stopped smoking. Frequent productive cough. No hemoptysis. No wheezing now. Breathing much better since quitting smoking. Good appetite. Borderline DM--on metformin. Balance off. Dysequilibrium in shower if closes his eyes for a few months. History of psoriasis--Treated Dupixant and Cosentyx. Current therapy: 1) Carbo/etoposide/atezolizumab Presents for ongoing oncologic management. Interim history: Recent hospitalization for fluid overload. Started on lasix. Sodium pills were stopped. He has been watching his diet, no added sodium. Labs pending today. No improvement in back pain with robaxin SOB has improved haven need inhaler in 2 weeks. Taste and smell haven't returned but eating and drinking ok. No changes in bowel or bladder habits. 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 Dr Knowles. Rt ARTHRP KNE CONDYLE&PLATU MEDIAL&LAT COMPARTMENTS 04/21/[address] [facility] [address] Strauss - left knee LIVER BIOPSY 01/05/2024 OPTX ANKLE DISLOCATION W/REPAIR/INT/XTRNL FIXJ ORIF Ankle left PAST SURGICAL HISTORY OF 05/22/2007 ORIF left forearm fracture ALLERGIES No Known Allergies Current Outpatient Medications Medication Sig erythromycin (ROMYCIN) 5 mg/gram (0.5 %) ophthalmic ointment APPLY A SMALL AMOUNT INTO BOTH EYES EVERY NIGHT AT BEDTIME guaifenesin/dextromethorphan (GUAIFENESIN DM ORAL) Take by mouth once daily. Magnesium Oxide 500 mg magnesium tab Take 1 tablet by mouth two times a day. ELIQUIS 5 mg tab(s) Take 1 tablet by mouth two times a day. furosemide (LASIX) 40 mg tablet Take 1 tablet by mouth once daily. methocarbamol (ROBAXIN) 500 mg tablet Take 1 tablet by mouth three times a day. For back pain tamsulosin (FLOMAX) 0.4 mg Take 1 capsule by mouth daily at bedtime. levothyroxine (LEVOXYL) 50 mcg tablet Take 1 tablet by mouth once daily. Take on empty stomach. For Thyroid naltrexone 50 mg tablet Take 50 mg by mouth once daily. albuterol HFA (VENTOLIN HFA) 90 mcg/actuation inhaler Inhale 2 Puffs as instructed every 4 hours as needed for wheezing/shortness of breath. Blood Pressure Monitor 1 Each two times a day. labetalol (TRANDATE) 100 mg tablet Take 1 tablet by mouth two times a day. prochlorperazine (COMPAZINE) 10 mg tablet Take 1 tablet by mouth every 6 hours as needed. varenicline (CHANTIX) 1 mg tablet Take 1 tablet by mouth two times a day. simvastatin (ZOCOR) 40 mg tablet Take 1 tablet by mouth daily at bedtime. metFORMIN (GLUCOPHAGE) 1,000 mg tablet Take 1 tablet by mouth daily with breakfast. CPAP Initiate Auto PAP @ 5-20 cm of water with humidification. Mask (per patient preference) optional chin strap (if indicated) , filters, tubing, humidifier and lifetime supplies. Blood Pressure Test Kit-Medium kit 1 Kit once daily. No current facility-administered medications for this visit. Social History Tobacco Use Smoking status: Former Current packs/day: 0.00 Average packs/day: 0.8 packs/day for 51.0 years (38.3 ttl pk-yrs) Types: Cigarettes Start date: 11/12/1972 Quit date: 11/13/2023 Years since quittin.5 Smokeless tobacco: Never Vaping Use Vaping status: Never Used Substance Use Topics Alcohol use: Yes Alcohol/week: 26.0 standard drinks of alcohol Types: 20 Cans of Beer (12oz), 6 Shots of liquor per week Comment: 2 Drug use: No Comment: past history [place] in the 70's Family History Problem Relation Age of Onset Cancer Mother Throat Diabetes Father Alcohol abuse Father Paranoid behavior Father No Known Problems Sister No Known Problems Sister No Known Problems Sister ROS: Constitutional: No fever. No drenching night sweats. All systems reviewed on 05/20/2024 with pertinent positives and negatives as outlined in the interval history. PHYSICAL EXAM: Vitals: Blood pressure 106/66, pulse 94, temperature 36.6 C (97.9 F), temperature source Temporal, weight 126.1 kg (278 lb), SpO2 97%. Well-appearing and in no acute distress. EYES: Sclerae are anicteric bilaterally. RESPIRATORY: Inspiratory breath sounds are of diminished intensity in all herrera. No rales, wheezes or rhonchi. CARDIOVASCULAR: Rhythm is regular. ABDOMEN: The abdomen is obese and nondistended. No tenderness. Extremities: Mild chronic appearing lower extremity swelling bilaterally, improved today SKIN: No psoriasis type rash in the area where he is having symptoms. I have performed the physical exam today (05/20/2024) and have edited the note to correlate with current findings. 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 Acquired hypothyroidism. Assessment: -The patient is a 68-year-old male with a past medical history as outlined above. Importantly he was diagnosed with borderline diabetes and has a history of psoriasis treated with Dupixent and Cosentyx in the past. -Goals of care are palliation and prolongation of survival. -He is tolerating treatment overall very well. Psoriasis stable but does have itch that is responding to Kenalog lotion. -Reviewed CT scan results from 04/15/2024, Continued response of primary lung tumor and liver metastases. Portacaval lymph node no longer enlarged. Sclerotic bone metastases stable overall. -No symptoms from bone, liver and abdominal adenopathy. -Only side effect of therapy at this time remains loss of taste and smell and itch likely secondary to atezolizumab. Responding to Kenalog lotion. - reviewed CBC, shows improvement in hgb - CMP pending Plan: -Continue therapy with atezolizumab, tolerating well -Continue monitoring thyroid function test, not drawn today. -Continue current dose of levothyroxine. -Kenalog lotion to area of itch as needed, tolerating well -Continue every 3-month Zometa. -Repeat CT scans in approximately 2-3 months. Angelic Flores APRN.LAMINATION 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 I spent a total of 30 minutes on the date of the service which included preparing to see the patient, [id number] patient care, completing clinical documentation, and performing a medically appropriate examination. Portions of this note including HPI, ROS, impression/plan may have been copied forward as to provide important historical information essential in contributing to medical decision making. Documentation has been reviewed and edited as necessary to support clinical decision making for today's visit and to reflect my own independent evaluation of this patient. documented in this encounter [facility] 05-20-2024 Note [facility] 05-09-2024 Instructions Tyra Martell APRN.LAMINATION 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 - 05/09/2024 1:59 PM EST 1) Methocarbamol 500 mg 3 x day for back pain- as needed 2) Labs 05/20/24 3) Continue Eliquis and furosemide 4) Stop sodium chloride 5) See you in May- call if any problems documented in this encounter [facility] 05-09-2024 Note [facility] 05-09-2024 History of Presen t illness Narrative This is a 69 year old male who presents today with: No chief complaint on file. HISTORY OF PRESENT ILLNESS: Abdirizak Colindres is a 69 year old male. No chief complaint on file. Monday evening, felt like skin was tight in legs. [place] like it did when he had blood clot. Propped feet up but didn't help. Swelling even in hands. In the morning, it was worse. Patient was seen at the emergency room at [facility] due to shortness of breath. States has been ongoing for couple of weeks. Also has lower extremity edema which is new. Edema is bilateral. He is noticing difficulty with lying flat and increased dyspnea on exertion. No chest pain or lightheadedness. Does have a history of stage IV lung cancer and undergoing chemotherapy. On note hemoglobin is 8.3 which is started to drop since January. He has had a workup at the [facility] for his MCV elevation, B12 and folic acid. His retake count absolute retake count were both elevated and his iron studies were normal. In the emergency room he had a pulse oximeter of 86% on room air. Satting normally at rest. Blood pressure 158/98, pulse 117, respirations 22, 97% room air. Afebrile. WBC 8.3, hemoglobin 8.3, hematocrit 27.4, platelet count 360 Sodium 138, potassium 4.7, BUN 28, creatinine 0.91, glucose 130 Chest x-ray shows Vascular congestion and CHF with bibasilar atelectasis. Patient had dyspnea on exertion with hypoxia in setting of heart failure. Brain natruretic peptide is normal and he is not requiring any oxygen at rest but does require with activity. Echocardiogram is pending Continue IV Lasix 40 mg twice daily Home blood pressure medications Home cholesterol medications May 02, 2024: WBC 7.6, hemoglobin 9.1, hematocrit 29.8, platelet count 354 Sodium 135, potassium 3.7, BUN 11, creatinine 0.96, glucose 159 Pulse oximeter with ambulation was 95% pulse ox with rest 99% Patient was placed on Eliquis 5 mg twice daily, furosemide 40 mg daily Final diagnosis congestive heart failure 2 D M mode echocardiogram done April 30, 2024 reveals: Normal left ventricular size. Left ventricular ejection fraction 55% Difficult study. Mild to moderate mitral calcification no wall motion abnormality. No pericardial effusion. No mention of diastolic function. Bteating is much improved. 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 [address] Knowles. Rt ARTHRP KNE CONDYLE&PLATU MEDIAL&LAT COMPARTMENTS 04/21/[address] [facility] [address] Strauss - left knee LIVER BIOPSY 01/05/2024 OPTX ANKLE DISLOCATION W/REPAIR/INT/XTRNL FIXJ ORIF Ankle left PAST SURGICAL HISTORY OF 05/22/2007 ORIF left forearm fracture ALLERGIES Patient has no known allergies. MEDICATIONS Current Outpatient Medications Medication Sig guaifenesin/dextromethorphan (GUAIFENESIN DM ORAL) Take by mouth once daily. Magnesium Oxide 500 mg magnesium tab Take 1 tablet by mouth once daily. ELIQUIS 5 mg tab(s) Take 5 mg by mouth two times a day. furosemide (LASIX) 40 mg tablet Take 40 mg by mouth once daily. tamsulosin (FLOMAX) 0.4 mg Take 1 capsule by mouth daily at bedtime. cyclobenzaprine (FLEXERIL) 10 mg tablet Take 1 tablet by mouth three times a day as needed for muscle spasm. levothyroxine (LEVOXYL) 50 mcg tablet Take 1 tablet by mouth once daily. Take on empty stomach. For Thyroid naltrexone 50 mg tablet Take 50 mg by mouth once daily. albuterol HFA (VENTOLIN HFA) 90 mcg/actuation inhaler Inhale 2 Puffs as instructed every 4 hours as needed for wheezing/shortness of breath. Blood Pressure Monitor 1 Each two times a day. labetalol (TRANDATE) 100 mg tablet Take 1 tablet by mouth two times a day. sodium chloride soluble tablet 1 g Take 1 tablet by mouth three times a day. varenicline (CHANTIX) 1 mg tablet Take 1 tablet by mouth two times a day. simvastatin (ZOCOR) 40 mg tablet Take 1 tablet by mouth daily at bedtime. buPROPion (WELLBUTRIN) 75 mg tablet Take 1 tablet by mouth two times a day. metFORMIN (GLUCOPHAGE) 1,000 mg tablet Take 1 tablet by mouth daily with breakfast. CPAP Initiate Auto PAP @ 5-20 cm of water with humidification. Mask (per patient preference) optional chin strap (if indicated) , filters, tubing, humidifier and lifetime supplies. Blood Pressure Test Kit-Medium kit 1 Kit once daily. aspirin, enteric coated (ASPIRIN, ENTERIC COATED) 81 mg EC tablet Take 81 mg by mouth once daily. prochlorperazine (COMPAZINE) 10 mg tablet Take 1 tablet by mouth every 6 hours as needed. Omeprazole Magnesium 20 mg tablet Take 20 mg by mouth once daily. No current facility-administered medications for this visit. FAMILY HISTORY Problem Relation Age of Onset Cancer Mother Throat Diabetes Father Alcohol abuse Father Paranoid behavior Father No Known Problems Sister No Known Problems Sister No Known Problems Sister Social History Tobacco Use Smoking status: Former Current packs/day: 0.00 Average packs/day: 0.8 packs/day for 51.0 years (38.3 ttl pk-yrs) Types: Cigarettes Start date: 11/12/1972 Quit date: 11/13/2023 Years since quittin.4 Smokeless tobacco: Never Tobacco comments: smoking 1/2 pack a day now 03/21/2023 Vaping Use Vaping status: Never Used Substance Use Topics Alcohol use: Yes Alcohol/week: 26.0 standard drinks of alcohol Types: 20 Cans of Beer (12oz), 6 Shots of liquor per week Comment: 2 Drug use: No Comment: past history traa in the 70's Since home sleeping ok. 2 cups of coffee, a pop or two and 2 glasses of water Eating ok- no sense of taste Sleeping good, some orthopnea but no PND Bowels and bladder moving fine Ongoing low back pain into buttocks. Aches. Walking and standing are terrible, sitting not bad and lying ok if one leg is bent EXAM: BP 120/54 Pulse 99 Temp 36.7 C (98.1 F) (Tympanic) Resp 18 Wt 122.9 kg (271 lb) SpO2 97% BMI 40.84 kg/m PHYSICAL EXAM: Physical Exam Vitals reviewed. Constitutional: Appearance: Normal appearance. HENT: Head: Normocephalic. Neck: Vascular: No carotid bruit. Comments: Thick, full neck Cardiovascular: Rate and Rhythm: Normal rate and regular rhythm. Pulses: Normal pulses. Heart sounds: Normal heart sounds. Pulmonary: Effort: Pulmonary effort is normal. No respiratory distress. Breath sounds: No wheezing, rhonchi or rales. Comments: Left upper lobe diminished, otherwise CTA Abdominal: General: Bowel sounds are normal. There is no distension. Palpations: Abdomen is soft. Tenderness: There is no abdominal tenderness. There is no guarding. Musculoskeletal: General: Normal range of motion. Cervical back: Normal range of motion. Right lower leg: Edema present. Left lower leg: Edema present. Comments: 1 + lower leg edema Chronic low back pain into both buttocks Skin: General: Skin is warm and dry. Neurological: Mental Status: He is alert and oriented to person, place, and time. Psychiatric: Mood and Affect: Mood normal. Behavior: Behavior normal. LABS: ASSESSMENT/PLAN: 1. Paroxysmal atrial fibrillation (HCC) - ICD9: 427.31, ICD10: I48.0 (primary diagnosis) Today regular rhythm - ELIQUIS 5 MG TABLET 2 x day - RENAL FUNCTION PANEL - MAGNESIUM 2. Generalized edema - ICD9: 782.3, ICD10: R60.1 Improved - FUROSEMIDE 40 MG TABLET daily - RENAL FUNCTION PANEL - MAGNESIUM 3. Chronic low back pain with sciatica, sciatica laterality unspecified, unspecified back pain laterality - ICD9: 724.2, 724.3, 338.29, ICD10: M54.40, G89.29 Chronic low back pain - Muscle relaxant- see orders - METHOCARBAMOL 500 MG TABLET 3 x day as needed 4. Iron deficiency anemia due to chronic blood loss - ICD9: 280.0, ICD10: D50.0 Anemia- on chemo - COMPLETE BLOOD COUNT AND DIFFERENTIAL Discussed treatment plan and patient voices understanding. Patient's questions answered appropriately. Medications and potential side effects were discussed and patient voices understanding. Return to the office as scheduled or as needed for worsening/no improvement. Tyra Martell APRN.KIMBERLY documented in this encounter [facility] 05-02-2024 Telephone encounter Note Patient was seen at the emergency room at [facility] due to shortness of breath. States has been ongoing for couple of weeks. Also has lower extremity edema which is new. Edema is bilateral. He is noticing difficulty with lying flat and increased dyspnea on exertion. No chest pain or lightheadedness. Does have a history of stage IV lung cancer and undergoing chemotherapy. On note hemoglobin is 8.3 which is started to drop since January. He has had a workup at the [facility] for his MCV elevation, B12 and folic acid. His retake count absolute retake count were both elevated and his iron studies were normal. In the emergency room he had a pulse oximeter of 86% on room air. Satting normally at rest. Blood pressure 158/98, pulse 117, respirations 22, 97% room air. Afebrile. WBC 8.3, hemoglobin 8.3, hematocrit 27.4, platelet count 360 Sodium 138, potassium 4.7, BUN 28, creatinine 0.91, glucose 130 Chest x-ray shows Vascular congestion and CHF with bibasilar atelectasis. Patient had dyspnea on exertion with hypoxia in setting of heart failure. Brain natruretic peptide is normal and he is not requiring any oxygen at rest but does require with activity. Echocardiogram is pending Continue IV Lasix 40 mg twice daily Home blood pressure medications Home cholesterol medications [facility] 05-02-2024 Miscellaneous Notes Patient was seen at the emergency room at [facility] due to shortness of breath. States has been ongoing for couple of weeks. Also has lower extremity edema which is new. Edema is bilateral. He is noticing difficulty with lying flat and increased dyspnea on exertion. No chest pain or lightheadedness. Does have a history of stage IV lung cancer and undergoing chemotherapy. On note hemoglobin is 8.3 which is started to drop since January. He has had a workup at the [facility] for his MCV elevation, B12 and folic acid. His retake count absolute retake count were both elevated and his iron studies were normal. In the emergency room he had a pulse oximeter of 86% on room air. Satting normally at rest. Blood pressure 158/98, pulse 117, respirations 22, 97% room air. Afebrile. WBC 8.3, hemoglobin 8.3, hematocrit 27.4, platelet count 360 Sodium 138, potassium 4.7, BUN 28, creatinine 0.91, glucose 130 Chest x-ray shows Vascular congestion and CHF with bibasilar atelectasis. Patient had dyspnea on exertion with hypoxia in setting of heart failure. Brain natruretic peptide is normal and he is not requiring any oxygen at rest but does require with activity. Echocardiogram is pending Continue IV Lasix 40 mg twice daily Home blood pressure medications Home cholesterol medications See ER report patient was admitted: Scan on 04/30/2024 1:04 PM by Provider, CHARLEEN Ojeda: Consultation - Emergency Medicine Pt calls to report yesterday he had swelling in his lower legs. Pt reports he kept legs elevated throughout the day. Pt reports today the swelling has moved up to above knees. Pt reports he had a blood clot years ago and is having that same kind of pain. Pt reports he is going to the [facility] ER and wanted to let pcp know. Olamide Jones LPN documented in this encounter [facility] 05-02-2024 Telephone encounter Note The following approved medication requests have been transmitted electronically. Requested Prescriptions Pending Prescriptions Disp Refills tamsulosin (FLOMAX) 0.4 mg 90 capsule 1 Sig: Take 1 capsule by mouth daily at bedtime. Tyra Martell APRN.CNP [facility] 05-02-2024 Miscellaneous Notes The following approved medication requests have been transmitted electronically. Requested Prescriptions Pending Prescriptions Disp Refills tamsulosin (FLOMAX) 0.4 mg 90 capsule 1 Sig: Take 1 capsule by mouth daily at bedtime. Tyra Martell APRN.CNP Prescription Refill Information The patient has been identified by name and date of : Yes Caregiver verified no other encounters exist for this prescription request: Yes Caregiver confirmed with patient/requestor that no other refills are due, in the near future, with this provider at this time: Yes The last office visit in the department: 02/29/2024 Does the patient have a future office visit with this provider/department: Yes Requested Prescriptions Pending Prescriptions Disp Refills tamsulosin (FLOMAX) 0.4 mg 90 capsule 1 Sig: Take 1 capsule by mouth daily at bedtime. Bella Mcghee May 02, 2024 2:39 PM documented in this encounter [facility] 05-02-2024 Telephone encounter Note Prescription Refill Information The patient has been identified by name and date of : Yes Caregiver verified no other encounters exist for this prescription request: Yes Caregiver confirmed with patient/requestor that no other refills are due, in the near future, with this provider at this time: Yes The last office visit in the department: 02/29/2024 Does the patient have a future office visit with this provider/department: Yes Requested Prescriptions Pending Prescriptions Disp Refills tamsulosin (FLOMAX) 0.4 mg 90 capsule 1 Sig: Take 1 capsule by mouth daily at bedtime. Bella Mcghee May 02, 2024 2:39 PM [facility] 05-02-2024 Note [facility] Medical Records Department [address] [place] [address] Discharge Summary 05/02/24 1345 MR#: [id number] Acct: [id number] Name: ABDIRIZAK COLINDRES Rep #: [id number] : [id number] From: Judson Hairston MD PCP: CHARLY Monson Status:DIS CRESCENCIO Location: [place] [address] Providers Date of Admission: 04/30/24 Primary Care Physician: CHARLY Monson Reason For Visit: SOB Diagnosis Discharge Diagnosis (1) CHF (congestive heart failure): Status: Acute Code(s): I50.9 - Heart failure, unspecified Medications at Discharge Home Medications omeprazole 20 mg capsule,delayed release 20 mg PO DAILY 04/30/13 cyclobenzaprine 10 mg tablet 10 mg PO TID PRN spasms 01/17/20 albuterol sulfate 90 mcg/actuation aerosol inhaler 2 puff inhalation Q4H PRN PRN wheezing 04/30/24 bupropion HCl 75 mg tablet 75 mg PO BID mood 04/30/24 labetalol 100 mg tablet 100 mg PO BID blood pressure 04/30/24 levothyroxine 50 mcg tablet 50 mcg PO DAILY disorder of thyroid gland 04/30/24 metformin 1,000 mg tablet 1,000 mg PO DAILY diabetes 04/30/24 naltrexone 50 mg tablet 50 mg PO DAILY 04/30/24 simvastatin 40 mg tablet 40 mg PO QHS cholesterol 04/30/24 sodium chloride 1,000 mg soluble tablet 1,000 mg PO TID supplement 04/30/24 tamsulosin 0.4 mg capsule 0.4 mg PO QHS urine flow 04/30/24 varenicline 1 mg tablet 1 mg PO BID quit smoking 04/30/24 apixaban 5 mg tablet (Eliquis) 5 mg PO BID 30 days #60 tabs 05/02/24 furosemide 40 mg tablet (Lasix) 40 mg PO DAILY #30 tabs 05/02/24 Hospital Course Operations None Procedures 2-D Echocardiogram Summary of Care Provided Minutes Spent on Discharge: 37 Hospital Course: Per HPI: ABDIRIZAK COLINDRES, is a 69 M who presents to the hospital with shortness of breath. He says it has been going on for couple weeks as he has been getting worse. He is also has lower extremity edema which is new. It is bilateral. He has been noticing difficulty with laying flat and increased dyspnea on exertion. He denies any chest pain or lightheadedness. He does have a history of stage IV lung cancer that he is undergoing chemotherapy for may believe that he will be starting immunotherapy in a couple weeks. He follows with [facility] oncology. Of note his hemoglobin is 8.3 which has started to drops in January, it does appear that he has had a workup at the [facility] as his MCV is elevated, his B12 folic acid. His retake count and his absolute retake count were both elevated, and his iron studies were normal. In the ER he had an amatory pulse ox of 86% on room air though he is satting normally at rest on room air. BNP was also normal which could be falsely low secondary to his morbid obesity. Hospital Course: 1. Dyspnea on exertion with hypoxia in setting of A-fib worsening an acute on chronic diastolic CHF/essential HTN/HLD???69-year-old male undergoing chemotherapy for stage IV lung cancer presented to the hospital with increasing shortness of breath at rest with increasing dyspnea on exertion. He did not require any oxygen while at rest but initially in the ER he was hypoxic with ambulation. He was significantly edematous so an echo was obtained which demonstrated an EF of 55% with no obvious signs of diastolic dysfunction though he had an episode of A-fib during his hospitalization so this may have contributed to his hypoxia and swelling. At this time I would likely describe him as having an acute on chronic diastolic CHF worsened by his A-fib. He was started on Eliquis 5 mg p.o. twice daily as well as Lasix. He did diurese well and on the day of discharge ambulated at 95% on room air. Will start him on p.o. Lasix 40 mg daily and continue with his labetalol for blood pressure and rate control. I discussed with him and his the plan for discharge today and he expressed understanding of the risk benefits of going home and would like to go home today. 2. Stage IV lung cancer, COPD, anemia of unknown etiology, type 2 diabetes, anxiety, depression, BPH are all chronic medical conditions which complicate his care. His home medications were continued where appropriate Physical Exam Narrative General: Alert, Oriented x3, Cooperative, No apparent distress HEENT: Atraumatic, PERRLA, EOMI, Normocephalic Oral: Moist Mucosa Neck: Supple, No JVD Lungs: Diminished, Normal air movement, No rhonchi, No wheeze, No rales Cardiovascular: Regular rate, Regular Rhythm, Normal S1, Normal S2, No murmurs Abdomen: Soft, Non Tender, Non-Distended, No Hepato-splenomegaly Extremities: Bilateral pitting edema, Capillary Refill Less than 3 Seconds Skin: No rashes, No breakdown Musculoskeletal: No Tenderness to Palpation of Joints or Extremities Neurological: No focal neurological deficits, Motor Exam 5/5 strength throughout, Sensory exam intact to light touch and pain Psych/Mental Stat (more content not included)... [facility] 05-01-2024 Telephone encounter Note See ER report patient was admitted: Scan on 04/30/2024 1:04 PM by Provider, ExternalJUSTUSC: Consultation - Emergency Medicine [facility] 04-30-2024 Evaluation note Diagnosis Onset Date Resolution CHF (congestive heart failure) acute April 30 12:57pm Hypoxia acute April 30, 2024 12:57pm [facility] Work Phone: [phone]) 197-828612-10-2024 Telephone encounter Note* Telephone Encounter - Olamide Jones LPN - 04/30/2024 8:32 AM EST Pt calls to report yesterday he had swelling in his lower legs. Pt reports he kept legs elevated throughout the day. Pt reports today the swelling has moved up to above knees. Pt reports he had a blood clot years ago and is having that same kind of pain. Pt reports he is going to the [facility] ER and wanted to let pcp know. Olamide Jones LPN [facility]12-05-2024 Telephone encounter Note* Telephone Encounter - Marilee Fraser LPN - 04/25/2024 4:34 PM EST Left detailed message on identified voicemail to check his my chart concerning Dr. Renteria response to his Bone Mets. If question he can contact office. Marilee Fraser LPN [facility]12-05-2024 Miscellaneous Notes* Telephone Encounter - Marilee Fraser LPN - 04/25/2024 4:34 PM EST Left detailed message on identified voicemail to check his my chart concerning Dr. Renteria response to his Bone Mets. If question he can contact office. Marilee Fraser LPN * Telephone Encounter - Corazon Renteria DO - 04/25/2024 4:17 PM EST It was very difficult to determine size of bone metastases on CT scans however the spots of cancer in the bone were more sclerosed which indicates positive treatment effect. So, short answer is they're better. Corazon Renteria DO * Telephone Encounter - Mee Tineo - 04/25/2024 2:32 PM EST Patient called in wanting to know about his bone mets and if it has gotten better, the same or worse. Please advise. Mee Tineo [facility] Telephone encounter Note * Telephone Encounter - Corazon Renteria DO - 04/25/2024 4:17 PM EST It was very difficult to determine size of bone metastases on CT scans however the spots of cancer in the bone were more sclerosed which indicates positive treatment effect. So, short answer is they're better. Corazon Renteria DO [facility]12-05-2024 Telephone encounter Note* Telephone Encounter - Mee Tineo - 04/25/2024 2:32 PM EST Patient called in wanting to know about his bone mets and if it has gotten better, the same or worse. Please advise. Mee Tineo [facility]12-02-2024 History of Present illness Narrative* Corazon Renteria DO - 04/22/2024 9:50 AM EST Oncologic problem(s): 1) Extensive stage small cell lung cancer. HPI: The patient is a 69-year-old male with a past medical history as outlined below. Has been undergoing lung cancer screening. Had stable nodules. Recent CT abdomen pelvis identified a nonspecific 2.1 cm lesion in segment 8 of the liver that could be further evaluated due to lack ofcontrast. Was also found to have right lower lobe pulmonary nodules as well as right hilar adenopathy. A PET scan was obtained on 12/14/2023. Patient was found to have hypermetabolic right hilar adenopathy as well as an infrahilar right-sided mass. There were multiple hypermetabolic foci involving bothlobes of the liver as well as hypermetabolic periportal and portacaval adenopathy. There is diffuse heterogeneous marrow activity but several discrete foci of increased uptake including the bilateralfemoral with SUV of 6.7 in the left proximal femur and bilateral humeri with a 6.6 right proximal humerus lesion. There were bilateral bony pelvis, sacrum and multilevels and thoracolumbar spine max SUV 4 at T12 and max SUV 4.3 at T9. Had a biopsy one of the liver lesions on 01/01/2024. Pathology: Small cell carcinoma. Patient referred by Tyra Martell APRN.CNP for extensive stage small cell lung cancer. The impression and plan will be communicated by way of the shared electronic record or faxed under separatecover letter. HPI: The patient is a 68-year-old male with a past medical history as outlined below. Has been undergoing lung cancer screening. Had stable nodules. Recent CT abdomen pelvis identified a nonspecific 2.1 cm lesion in segment 8 of the liver that could be further evaluated due to lack ofcontrast. Was also found to have right lower lobe pulmonary nodules as well as right hilar adenopathy. A PET scan was obtained on 12/14/2023. Patient was found to have hypermetabolic right hilar adenopathy as well as an infrahilar right-sided mass. There were multiple hypermetabolic foci involving bothlobes of the liver as well as hypermetabolic periportal and portacaval adenopathy. There is diffuse heterogeneous marrow activity but several discrete foci of increased uptake including the bilateralfemoral with SUV of 6.7 in the left proximal femur and bilateral humeri with a 6.6 right proximal humerus lesion. There were bilateral bony pelvis, sacrum and multilevels and thoracolumbar spine max SUV 4 at T12 and max SUV 4.3 at T9. Had a biopsy one of the liver lesions on 01/01/2024. Pathology: Small cell carcinoma. Initial consultation 01/12/2024: Has history of ROMIE but hard for him to use CPAP mask. Stopped smoking. Frequent productive cough. No hemoptysis. No wheezing now. Breathing much better since quitting smoking. Good appetite. Borderline DM--on metformin. Balance off. Dysequilibrium in shower if closes his eyes for a few months. History of psoriasis--Treated Dupixant and Cosentyx. Current therapy: 1) Carbo/etoposide/atezolizumab Presents for ongoing oncologic management. Interim history: Taste and smell haven't returned. PCP increased levothyroxine--has really helped energy. No worsening of SHAH. Not very limited by this. Occasional cough with some phlegm. Chronic LBP unchanged. Mild flare psoriasis on top lateral buttock--itches. Using Kenalog cream as previously prescribed by Dr. Frey. No diarrhea. 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 [address] Knowles. Rt ARTHRP KNE CONDYLE&PLATU MEDIAL&LAT COMPARTMENTS 04/21/[address] [facility] [address] Strauss - left knee LIVER BIOPSY 01/05/2024 OPTX ANKLE DISLOCATION W/REPAIR/INT/XTRNL FIXJ ORIF Ankle left PAST SURGICAL HISTORY OF 05/22/2007 ORIF left forearm fracture ALLERGIES No Known Allergies Current Outpatient Medications Medication Sig cyclobenzaprine (FLEXERIL) 10 mg tablet Take 1 tablet by mouth three times a day as needed for muscle spasm. levothyroxine (LEVOXYL) 50 mcg tablet Take 1 tablet by mouth once daily. Take on empty stomach. ForThyroid naltrexone 50 mg tablet Take 50 mg by mouth once daily. albuterol HFA (VENTOLIN HFA) 90 mcg/actuation inhaler Inhale 2 Puffs as instructed every 4 hours asneeded for wheezing/shortness of breath. Blood Pressure Monitor 1 Each two times a day. labetalol (TRANDATE) 100 mg tablet Take 1 tablet by mouth two times a day. tamsulosin (FLOMAX) 0.4 mg Take 1 capsule by mouth daily at bedtime. prochlorperazine (COMPAZINE) 10 mg tablet Take 1 tablet by mouth every 6 hours as needed. sodium chloride soluble tablet 1 g Take 1 tablet by mouth three times a day. varenicline (CHANTIX) 1 mg tablet Take 1 tablet by mouth two times a day. simvastatin (ZOCOR) 40 mg tablet Take 1 tablet by mouth daily at bedtime. buPROPion (WELLBUTRIN) 75 mg tablet Take 1 tablet by mouth two times a day. metFORMIN (GLUCOPHAGE) 1,000 mg tablet Take 1 tablet by mouth daily with breakfast. CPAP Initiate Auto PAP @ 5-20 cm of water with humidification. Mask (per patient preference) optional chin strap (if indicated) , filters, tubing, humidifier and lifetime supplies. Blood Pressure Test Kit-Medium kit 1 Kit once daily. Omeprazole Magnesium 20 mg tablet Take 20 mg by mouth once daily. aspirin, enteric coated (ASPIRIN, ENTERIC COATED) 81 mg EC tablet Take 81 mg by mouth once daily. (Patient not taking: Reported on 02/29/2024) No current facility-administered medications for this visit. Social History Tobacco Use Smoking status: Former Current packs/day: 0.00 Average packs/day: 0.8 packs/day for 51.0 years (38.3 ttl pk-yrs) Types: Cigarettes Start date: 11/12/1972 Quit date: 11/13/2023 Years since quittin.4 Smokeless tobacco: Never Tobacco comments: smoking 1/2 pack a day now 03/21/2023 Vaping Use Vaping status: Never Used Substance Use Topics Alcohol use: Yes Alcohol/week: 26.0 standard drinks of alcohol Types: 20 Cans of Beer (12oz), 6 Shots of liquor per week Comment: 2 Drug use: No Comment: past history [place] in the 70's Family History Problem Relation Age of Onset Cancer Mother Throat Diabetes Father Alcohol abuse Father Paranoid behavior Father No Known Problems Sister No Known Problems Sister No Known Problems Sister ROS: Constitutional: No fever. No drenching night sweats. Neuro: No recent HOPKINS. HEENT: No recent change in voice, vision or hearing. Resp: See above. CVS: No exertional chest pain, PND or orthopnea. GI: No reflux, n/v, no abdominal pain, bloating or distension. No black or bloody stools. : No dysuria or gross hematuria. Endo: No hot flashes. Musculoskeletal: See above. Derm: See above. Heme: No unusual bleeding and unexplained bruising. Psych: Normal mood. PHYSICAL EXAM: Vitals: Blood pressure 131/79, pulse 87, temperature 36.4 C (97.6 F), temperature source Temporal, resp. rate 20, weight 131.1 kg (289 lb), SpO2 98%. Well-appearing and in no acute distress. EYES: Sclerae are anicteric bilaterally. LYMPHATIC: There is no palpable cervical, supraclavicular, axillary adenopathy. RESPIRATORY: Inspiratory breath sounds are of diminished intensity in all herrera. No rales, wheezesor rhonchi. CARDIOVASCULAR: Rhythm is regular. ABDOMEN: The abdomen is obese and nondistended. No tenderness. Extremities: Mild chronic appearing lower extremity swelling bilaterally. SKIN: No psoriasis type rash in the area where he is having symptoms. 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 Acquired hypothyroidism. Assessment: -The patient is a 68-year-old male with a past medical history as outlined above. Importantly he was diagnosed with borderline diabetes and has a history of psoriasis treated with Dupixent and Cosentyx in the past. -Goals of care are palliation and prolongation of survival. -He is tolerating treatment overall very well. No rash that her oldest progression of psoriasis butdoes have itch that is responding to Kenalog lotion. -Reviewed CT scan results from 04/15/2024. Continued response of primary lung tumor and liver metastases. Portacaval lymph node no longer enlarged. Sclerotic bone metastases stable overall. -No symptoms from bone, liver and abdominal adenopathy. -Only side effect of therapy at this time remains loss of taste and smell and itch likely secondaryto atezolizumab. Responding to Kenalog lotion. -Macrocytic anemia that is somewhat worse. However he feels more energetic after increased dose of levothyroxine. Plan: -Continue therapy with atezolizumab. Okay for today's dose. -Continue monitoring thyroid function test. -Continue current dose of levothyroxine. -Kenalog lotion to area of itch as needed. -Continue every 3-month Zometa. -Repeat CT scans in approximately 3 months. Portions of this documentation were copied and pasted from my previous office visit note dated 01/12/2024 in order to provide a cohesive continuity of the history. The note has been reviewed and edited and updated as necessary. Corazon Renteria DO documented in this encounterC[facility] History of Present illness Narrative* Reef Jerilyn Hammond RT(R) - 04/15/2024 10:20 AM EST Radiology Service Progress Note DATE OF SERVICE: April 15, 2024 TIME: 10:44 AM PATIENT IDENTITY VERIFICATION COMPLETED USING TWO (2) STANDARD IDENTIFIERS: Name and Date of confirmed by patient verbally. FALL SCREENING: Has the patient had 2 falls in the last year or 1 fall with injury or currently using an Ambulatory Assistive Device (Walker, Cane, Wheelchair, Crutches, etc.)? No PATIENT GENDER DATA: Male PATIENT RELEVANT IMPLANT DATA REVIEWED: Yes PATIENT PRESENTS WITH AN IMPLANTABLE OR ATTACHED CONVEYOR TECHNICIAN: No ALLERGIES: Reviewed and unchanged CONTRAST ALLERGY: NO. EXAM: CT -CONTRAST INDUCED NEPHROPATHY RISK FACTORS: Patient age > 60 years CREATININE: Creatinine Date Value Ref Range Status 03/28/2024 0.81 0.73 - 1.22 mg/dL Final 03/11/2024 0.82 0.73 - 1.22 mg/dL Final 02/16/2024 0.79 0.73 - 1.22 mg/dL Final Estimated Glomerular Filtration Rate Date Value Ref Range Status 03/28/2024 96 >=60 mL/min/1.73m Final Comment: Estimated Glomerular Filtration Rate (eGFR) is calculated using the 2020 CKD-EPI creatinine equation. This equation utilizes serum creatinine, sex, and age as parameters. The creatinine assay has traceable calibration to isotope dilution- mass spectrometry. Refer to KDIGO guidelines for clinical interpretation. In patients with unstable renal function, e.g. those with acute kidney injury, the eGFRmay not accurately reflect actual GFR. eGFR- Date Value Ref Range Status 06/10/2021 >60 Final P.O.C.T. RESULTS: POC done: Yes, See Lab Tab April 15, 2024 TREATMENT: N/A PERIPHERAL IV DATA: Ambulatory: A peripheral IV was started in the Left antecubital site with a Angio cath: 22 gauge. RADIOLOGY DEPARTMENT: CT; Exam(s) Completed: Chest Abdomen Pelvis SIGNATURE: RT Marbin(R) PATIENT NAME: Abdirizak Colindres DATE: April 15, 2024 TIME: 10:44 AM documented in this encounterC[facility]11-25-2024 NoteT[facility]11-19-2024 Telephone encounter Note* Telephone Encounter - Tyra Martell APRN.CNP - 04/09/2024 4:50 PM EST The following approved medication requests have been transmitted electronically. Requested Prescriptions Pending Prescriptions Disp Refills cyclobenzaprine (FLEXERIL) 10 mg tablet 45 tablet 2 Sig: Take 1 tablet by mouth three times a day as needed for muscle spasm. Tyra Martell APRN.CNP [facility]11-19-2024 Miscellaneous Notes* Telephone Encounter - Tyra Martell APRN.CNP - 04/09/2024 4:50 PM EST The following approved medication requests have been transmitted electronically. Requested Prescriptions Pending Prescriptions Disp Refills cyclobenzaprine (FLEXERIL) 10 mg tablet 45 tablet 2 Sig: Take 1 tablet by mouth three times a day as needed for muscle spasm. Tyra Martell APRN.CNP * Telephone Encounter - Shaina Gomez - 04/09/2024 3:18 PM EST Prescription Refill Information The patient has been identified by name and date of : Yes Caregiver verified no other encounters exist for this prescription request: Yes Caregiver confirmed with patient/requestor that no other refills are due, in the near future, with this provider at this time: Yes The last office visit in the department: 02-29-24 Does the patient have a future office visit with this provider/department: Yes Requested Prescriptions Pending Prescriptions Disp Refills cyclobenzaprine (FLEXERIL) 10 mg tablet 45 tablet 2 Sig: Take 1 tablet by mouth three times a day as needed for muscle spasm. Shaina Yuan April 09, 2024 3:19 PM documented in this encounterC[facility]11-19-2024 Telephone encounter Note * Telephone Encounter - Shaina Gomez - 04/09/2024 3:18 PM EST Prescription Refill Information The patient has been identified by name and date of : Yes Caregiver verified no other encounters exist for this prescription request: Yes Caregiver confirmed with patient/requestor that no other refills are due, in the near future, with this provider at this time: Yes The last office visit in the department: 02-29-24 Does the patient have a future office visit with this provider/department: Yes Requested Prescriptions Pending Prescriptions Disp Refills cyclobenzaprine (FLEXERIL) 10 mg tablet 45 tablet 2 Sig: Take 1 tablet by mouth three times a day as needed for muscle spasm. Shaina Montanez [facility] April 09, 2024 3:19 PM [facility]11-12-2024 NoteHNO ID: [id number] Author: ROSE BANEGAS RN Service: ? Author Type: Registered Nurse Type: Progress Notes Filed: 04/02/2024 14:49 Note Text: Assessment unchanged from 04/01/24 [facility] 04-02-2024 History of Present illness Narrative* Rose Banegas RN - 04/02/2024 1:18 PM EST Assessment unchanged from 04/01/24 chemotherapy trntnn documented in this encounterC[facility]11-11-2024 Telephone encounter Note * Telephone Encounter - Desirae Padgett MA - 04/01/2024 5:25 PM EST Pt made aware and will hop picker medication from pharmacy. Desirae Padgett MA April 01, 2024 5:26 PM [facility]11-11-2024 Miscellaneous Notes* Telephone Encounter - Desirae Padgett MA - 04/01/2024 5:25 PM EST Pt made aware and will hop picker medication from pharmacy. Desirae Padgett MA April 01, 2024 5:26 PM * Telephone Encounter - Tyra Martell APRN.CNP - 04/01/2024 4:50 PM EST We can increase levothyroxine to 50 mcg. That would be fine. Still need to check level in April. * Telephone Encounter - Pat White RN - 04/01/2024 4:10 PM EST Patient calling to ask if Levothyroxine can be increased? He says he inadvertently took an extra 25mcg dose this morning and says it made him feel so much better than usual today. If agree, [facility]. Pat White, JEIMY documented in this encounterC[facility]11-11-2024 Telephone encounter Note * Telephone Encounter - Tyra Martell APRN.CNP - 04/01/2024 4:50 PM EST We can increase levothyroxine to 50 mcg. That would be fine. Still need to check level in April. [facility]-11-[facility] Telephone encounter Note* Telephone Encounter - Pat White RN - 04/01/2024 4:10 PM EST Patient calling to ask if Levothyroxine can be increased? He says he inadvertently took an extra 25mcg dose this morning and says it made him feel so much better than usual today. If agree, [facility]. Pat White RN [facility]11-07-2024 History of Present illness Narrative* FloresAngelic - 03/28/2024 1:30 PM EST Abdirizak Colindres 1955 HPI: Abdirizak Colindres is a 68 year old male who presents here today for evaluation for treatment on Monday. Per Dr. Renteria's previous note: H/o Has been undergoing lung cancer screening. Had stable nodules. Recent CT abdomen pelvis identified a nonspecific 2.1 cm lesion in segment 8 of the liver that could be further evaluated due to lack of contrast. Was also found to have right lower lobe pulmonary nodules as well as right hilar adenopathy. A PET scan was obtained on 12/14/2023. Patient was found to have hypermetabolic right hilar adenopathy as well as an infrahilar right-sided mass. There were multiple hypermetabolic foci involving bothlobes of the liver as well as hypermetabolic periportal and portacaval adenopathy. There is diffuse heterogeneous marrow activity but several discrete foci of increased uptake including the bilateralfemoral with SUV of 6.7 in the left proximal femur and bilateral humeri with a 6.6 right proximal humerus lesion. There were bilateral bony pelvis, sacrum and multilevels and thoracolumbar spine max SUV 4 at T12 and max SUV 4.3 at T9. Had a biopsy one of the liver lesions on 01/01/2024. Pathology: Small cell carcinoma. Current therapy:tecentriq/carbo/etoposide Began 01/29/24 Interval Hx: Mr. Colindres presents today with his spouse. Denies recent illness. No fevers, chills or NS. Reports feeling well overall. Denies new issues. No new aches or pains. Endorses SHAH. No N/V/C/D. No rashes or skin changes. Psoriasis is well controlled. Denies bleeding or bruising. Notes BP elevated today as they had a hard time with blood draw just prior to appt. The ROS is otherwise negative. ROS: All systems reviewed on 03/28/2024 with pertinent positives and negatives as outlined in the interval history. EXAM: BP 170/97 Pulse 69 Temp 36.2 C (97.1 F) (Temporal) Wt 124.5 kg (274 lb 8 oz) SpO2 98% BMI41.36 kg/m APPEARANCE Well appearing, alert, in no acute distress, well-hydrated, well nourished. HEART RRR with normal S1 and S2, no murmurs LUNG clear to auscultation although diminished throughout LYMPH NODES No cervical lymphadenopathy, No supraclavicular lymphadenopathy, and No axillary lymphadenopathy. ABDOMEN obese bowel sounds normoactive, soft, non-tender EXTREMITIES chronic BLE edema/stasis changes NEURO Awake, alert and oriented x 3, using w/c today and No involuntary motions. SKIN Skin color, texture, turgor normal, no suspicious rashes or lesions I have performed the physical exam today (03/28/2024) and have edited the note to correlate with current findings. LABS: Latest Reference Range & Units 02/16/24 08:02 03/11/24 09:46 03/14/24 14:42 03/28/24 13:01 WBC 3.70 - 11.00 k/uL 12.41 (H) 12.64 (H) 10.65 13.16 (H) RBC 4.20 - 6.00 m/uL 3.20 (L) 2.52 (L) 3.01 (L) 2.58 (L) Hemoglobin 13.0 - 17.0 g/dL 9.9 (L) 8.2 (L) 9.6 (L) 8.6 (L) Hematocrit 39.0 - 51.0 % 30.8 (L) 25.8 (L) 31.0 (L) 27.2 (L) Platelet Count 150 - 400 k/uL 313 352 452 (H) 144 (L) MCV 80.0 - 100.0 fL 96.3 102.4 (H) 103.0 (H) 105.4 (H) MCH 26.0 - 34.0 pg 30.9 32.5 31.9 33.3 MCHC 30.5 - 36.0 g/dL 32.1 31.8 31.0 31.6 MPV 9.0 - 12.7 fL 10.1 9.9 10.1 10.9 RDW-CV 11.5 - 15.0 % 16.7 (H) 21.5 (H) 20.8 (H) 22.7 (H) (H): Data is abnormally high (L): Data is abnormally low CMP/Mag: Pending ASSESSMENT/PLAN: 1. 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) - ICD9: 197.7, ICD10: C78.7 3. Metastatic cancer to bone (HCC) - ICD9: 198.5, ICD10: C79.51 4. 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 - CMP/Mag pending. - Continue current medications. - Continue zometa every 3 months. - CT's after this cycle. Ordered today - Proceed as scheduled on Monday for #4 tecentriq/carbo/etoposide pending labs. - Follow up as scheduled otherwise. - Pt. aware to call office with any questions/concerns. RTC as scheduled for treatment. CT scans following C4, follow up with Dr. Renteria with results. Angelic Flores, MOIZ.LAMINATION 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 I spent a total of 30 minutes on the date of the service which included preparing to see the patient, [id number] patient care, completing clinical documentation, and performing a medically appropriate examination. Portions of this note including HPI, ROS, impression/plan may have been copied forward as to provide important historical information essential in contributing to medical decision making. Documentation has been reviewed and edited as necessary to support clinical decision making for today's visit and to reflect my own independent evaluation of this patient. documented in this encounterC[facility]11-07-2024 NoteT[facility]10-25-2024 NoteT[facility]10-24-2024 NoteT[facility]10-24-2024 History of Present illness Narrative* Bella Vazquez LPN - 03/14/2024 3:33 PM EDT Patient here for injection of Fulphilia. No fevers. Given SQ in left arm, tolerated well. SOB from walking in from the parking lot. After sitting his breathing became more controlled, pulse ox came up to 92%, pt able to speak a full sentence without stopping for breath. He states he took his inhaler this morning. States after sitting for his injection he feels much better. He states this SOB is not new, he often gets like this with long ambulation. I took pt out to his car via W/C. Pt instructed if he has any issues or concerns to call office. No transfusion needed, hgb 9.6 Bella Vazquez LPN documented in this encounterCleveland [facility]10-24-2024 Telephone encounter Note * Telephone Encounter - Michelle Lundberg LPN - 03/14/2024 2:01 PM EDT I called the patient for an update on how he's feeling; he's SOB. He will start on his way here fora CBC(?TX) and his neulasta injection. Michelle Lundberg LPN [facility]10-24-2024 Miscellaneous Notes* Telephone Encounter - Michelle Lundberg LPN - 03/14/2024 2:01 PM EDT I called the patient for an update on how he's feeling; he's SOB. He will start on his way here fora CBC(?TX) and his neulasta injection. Michelle Lundberg LPN * Telephone Encounter - Michelle Lundberg LPN - 03/14/2024 12:14 PM EDT I spoke with patient; we will call him back at 2:00 to see how he is feeling. Michelle Lundberg LPN * Telephone Encounter - Deborah Atkins - 03/14/2024 11:52 AM EDT Patient is calling in states over slept this am took Blood pressure medicine late not feeling the best as was asking if today's appointment could be rescheduled for tomorrow. documented in this encounterC[facility]10-24-2024 Telephone encounter Note * Telephone Encounter - Michelle Lundberg LPN - 03/14/2024 12:14 PM EDT I spoke with patient; we will call him back at 2:00 to see how he is feeling. Michelle Lundberg LPN [facility]-24-[facility]24 Telephone encounter Note* Telephone Encounter - Deborah Atkins - 03/14/2024 11:52 AM EDT Patient is calling in states over slept this am took Blood pressure medicine late not feeling the best as was asking if today's appointment could be rescheduled for tomorrow. [facility] Telephone encounter Note* Telephone Encounter - Ana Maria Trevino MA - 03/12/2024 8:55 AM EDT Pt notified and voiced understanding. Ana Maria Trevino MA [facility]10-22-2024 Miscellaneous Notes* Telephone Encounter - Ana Maria Trevino MA - 03/12/2024 8:55 AM EDT Pt notified and voiced understanding. Ana Maria Trevino MA * Telephone Encounter - Tyra Martell APRN.CNP - 03/12/2024 8:00 AM EDT Please let pt. Know that he is now hypothyroid. That happens sometimes with cancer treatment. I will order levothyroxine 25 mcg to take daily on an empty stomach when he first rises in the morning. Wait about 30 min before taking other meds or eating for best absorption. Put it right by toothbrush so he gets it in right away. I will recheck thyroid in 6-8 weeks with other labs. Blood sugar improved slightly. HgA1c is 6.4% documented in this encounterCleveland [facility]10-22-2024 Telephone encounter Note * Telephone Encounter - Tyra Martell APRN.CNP - 03/12/2024 8:00 AM EDT Please let pt. Know that he is now hypothyroid. That happens sometimes with cancer treatment. I will order levothyroxine 25 mcg to take daily on an empty stomach when he first rises in the morning. Wait about 30 min before taking other meds or eating for best absorption. Put it right by toothbrush so he gets it in right away. I will recheck thyroid in 6-8 weeks with other labs. Blood sugar improved slightly. HgA1c is 6.4% [facility] Telephone encounter Note* Telephone Encounter - Kayli August RN - 03/07/2024 3:[address] Renteria, patient needs to see his eye doctor [facility]. Also, stop visine, start regular lubricating drops. Called patient and informed him of these instructions. Called [facility], informed them of patients situation, they will contact him to schedule an appointment. Kayli August RN [facility]10-17-[facility]24 Miscellaneous Notes* Telephone Encounter - Kayli August RN - 03/07/2024 3:[address] Renteria, patient needs to see his eye doctor [facility]. Also, stop visine, start regular lubricating drops. Called patient and informed him of these instructions. Called [facility], informed them of patients situation, they will contact him to schedule an appointment. Kayli August RN * Telephone Encounter - Kayli August RN - 03/07/2024 1:04 PM EDT Care Coordination Triage Note [facility] Situation: Patient reports Other eye issues, itching/burning Background: Lung, on carbo/etoposide/Tecentriq, C2 02/19/24 Assessment: Concern / Issue: itching, burning in both eyes. Dry eyes, watering like crazy, feels like theressomething in my eyes like sand. When did you first notice the concern / issue? A month ago How do you describe your symptoms? Rates discomfort a 6/10. Have you had this issue/symptom before? no Is your concern / issue better or worse or unchanged than when it first started? Same/worse Alleviating factors: Closing eyes, eye drops Are there activities or exposures that aggravate or make your symptoms worse? Fresh air outside might make them irritated more. What have you tried to alleviate your concern / issue? Using visine eye drops for red eyes, feels cooler and the itching and burning improves. The eye drops improve symptoms for 2-3 hours and then symptoms return. Patient takes coricidin every day, BID. Denies double vision or sensitivity to light. Has a drippy nose, denies sinus pain/pressure, cough,fever, or chills. Eyelids are a little red where my eyelashes are, denies facial swelling or lip/tongue swelling. Established with [facility], [place], has an appointment next month. Recommendations: Per RNCC, patient directed to: Manage at home. Instructions provided. Will discuss with Dr. Renteria. Kayli August RN March 07, 2024 1:04 PM * Telephone Encounter - Queenie Bradley - 03/07/2024 12:31 PM EDT Patient called stating he is still having itching/burning of his eyes. He is using OTC eye drops are not working, he is using 6-8 times a day. He states it is becoming bothersome and a problem and would like to speak with clinical. documented [facility] encounterC[facility] Telephone encounter Note * Telephone Encounter - Kayli August RN - 03/07/2024 1:04 PM EDT Care Coordination Triage Note [facility] Situation: Patient reports Other eye issues, itching/burning Background: Lung, on carbo/etoposide/Tecentriq, C2 02/19/24 Assessment: Concern / Issue: itching, burning in both eyes. Dry eyes, watering like crazy, feels like theressomething in my eyes like sand. When did you first notice the concern / issue? A month ago How do you describe your symptoms? Rates discomfort a 6/10. Have you had this issue/symptom before? no Is your concern / issue better or worse or unchanged than when it first started? Same/worse Alleviating factors: Closing eyes, eye drops Are there activities or exposures that aggravate or make your symptoms worse? Fresh air outside might make them irritated more. What have you tried to alleviate your concern / issue? Using visine eye drops for red eyes, feels cooler and the itching and burning improves. The eye drops improve symptoms for 2-3 hours and then symptoms return. Patient takes coricidin every day, BID. Denies double vision or sensitivity to light. Has a drippy nose, denies sinus pain/pressure, cough,fever, or chills. Eyelids are a little red where my eyelashes are, denies facial swelling or lip/tongue swelling. Established with [facility] [place], has an appointment next month. Recommendations: Per RNCC, patient directed to: Manage at home. Instructions provided. Will discuss with Dr. Renteria. Kayli August RN March 07, 2024 1:04 PM [facility]10-17-[facility] Telephone encounter Note* Telephone Encounter - Queenie Bradley - 03/07/2024 12:31 PM EDT Patient called stating he is still having itching/burning of his eyes. He is using OTC eye drops are not working, he is using 6-8 times a day. He states it is becoming bothersome and a problem and would like to speak with clinical. [facility] Work Phone: 1(787) 350-926010-15-2024 History of Present illness Narrative* Elroy RenteriagerJerilyn, RT(R) - 03/05/2024 9:00 AM EDT Radiology Service Progress Note DATE OF SERVICE: March 05, 2024 TIME: 3:05 PM PATIENT IDENTITY VERIFICATION COMPLETED USING TWO (2) STANDARD IDENTIFIERS: Name and Date of confirmed by patient verbally. FALL SCREENING: Has the patient had 2 falls in the last year or 1 fall with injury or currently using an Ambulatory Assistive Device (Walker, Cane, Wheelchair, Crutches, etc.)? No PATIENT GENDER DATA: Male PATIENT RELEVANT IMPLANT DATA REVIEWED: Yes PATIENT PRESENTS WITH AN IMPLANTABLE OR ATTACHED CONVEYOR TECHNICIAN: No ALLERGIES: Reviewed and unchanged CONTRAST ALLERGY: NO. EXAM: CT -CONTRAST INDUCED NEPHROPATHY RISK FACTORS: Patient age > 60 years CREATININE: Creatinine Date Value Ref Range Status 02/16/2024 0.79 0.73 - 1.22 mg/dL Final 01/29/2024 0.75 0.73 - 1.22 mg/dL Final 01/16/2024 0.93 0.73 - 1.22 mg/dL Final Estimated Glomerular Filtration Rate Date Value Ref Range Status 02/16/2024 97 >=60 mL/min/1.73m Final Comment: Estimated Glomerular Filtration Rate (eGFR) is calculated using the 2020 CKD-EPI creatinine equation. This equation utilizes serum creatinine, sex, and age as parameters. The creatinine assay has traceable calibration to isotope dilution- mass spectrometry. Refer to KDIGO guidelines for clinical interpretation. In patients with unstable renal function, e.g. those with acute kidney injury, the eGFRmay not accurately reflect actual GFR. eGFR- Date Value Ref Range Status 06/10/2021 >60 Final P.O.C.T. RESULTS: POC done: Yes, See Lab Tab March 05, 2024 TREATMENT: N/A PERIPHERAL IV DATA: Ambulatory: A peripheral IV was started in the Left antecubital site with a Angio cath: 22 gauge. RADIOLOGY DEPARTMENT: CT; Exam(s) Completed: Chest Abdomen Pelvis SIGNATURE: RT Marbin(R) PATIENT NAME: Abdirizak Colindres DATE: March 05, 2024 TIME: 3:05 PM documented in this encounterC[facility]10-15-[facility]24 [facility] Telephone encounter Note* Telephone Encounter - Nae Bob LPN - 03/01/2024 8:16 AM EDT Spoke with pt and he got the new monitor,. Pt is having problems figuring it out. Pt going to call the pharmacy to see if they are able to help them.Nae Bob LPN [facility]10-11-2024 Miscellaneous Notes* Telephone Encounter - Nae Bob LPN - 03/01/2024 8:16 AM EDT Spoke with pt and he got the new monitor,. Pt is having problems figuring it out. Pt going to call the pharmacy to see if they are able to help them.Nae Bob LPN * Telephone Encounter - Penny Kerns LPN - 02/28/2024 1:41 PM EDT Call to patient to see if he ever got a new monitor and voicemail is full. * Telephone Encounter - Nae Bob LPN - 02/28/2024 7:43 AM EDT Checking to see if this was done. Pleae review and close when completed. Nae Bob LPN * Telephone Encounter - Tyra Martell APRN.CNP - 02/22/2024 3:09 PM EDT Order signed but we may have to resend to [facility]- DME * Telephone Encounter - Nae Bob LPN - 02/22/2024 2:43 PM EDT Pt calling to get a blood pressure monitor sent to his pharmacy. The one he hs just quit working. Pt reports his blood pressure has been running low the last 3 days. FYI: Pt calls and states the following: LOW BLOOD PRESSURE- not certain if his machine may of been off. BLOOD PRESSURE: running low last 3 days ONSETS: started 3 days ago HOW: blood pressure machine automatic HISTORY: no MEDICATIONS: taking medications and has not missed any doses PULSE RATE: no OTHER SYMPTOMS: nothing to report Pt is going thru lung/liver cancer and now into bones. Pt taking treatment and doing okay with this. Please review and send blood pressure machine prescription to the pharmacy. Nae Bob LPN documented in this encounterC[facility]10-10-2024 Instructions* Patient Instructions* Tyra Martell APRN.KIMBERLY - 02/29/2024 8:14 AM EDT 1) Stop amlodipine 2) Augmentin 2 x day for 10 days for boil 3) RSV vaccine 4) Labs with next oncology labs draw 5) Follow up in 3 months documented in this encounterC[facility]10-10-2024 [facility]10-10-[facility] History of Present illness Narrative* Tyra Martell APRN.KIMBERLY - 02/29/2024 8:13 AM EDT This is a 68 year old male who presents today with: Patient presents with: 6 Month Exam Physical HISTORY OF PRESENT ILLNESS: Abdirizak Colindres is a 68 year old male. Patient presents with: 6 Month Exam Physical Blood pressure is low. Not lightheaded. Back of left testicle boil. Drained purulent bloody drainage on Monday. Odor. 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 Knowles. Rt ARTHRP KNE CONDYLE&PLATU MEDIAL&LAT COMPARTMENTS 04/21/[address] [facility] [address] Strauss - left knee LIVER BIOPSY 01/05/2024 OPTX ANKLE DISLOCATION W/REPAIR/INT/XTRNL FIXJ ORIF Ankle left PAST SURGICAL HISTORY OF 05/22/2007 ORIF left forearm fracture ALLERGIES Patient has no known allergies. MEDICATIONS Current Outpatient Medications Medication Sig naltrexone 50 mg tablet Take 50 mg by mouth once daily. labetalol (TRANDATE) 100 mg tablet Take 1 tablet by mouth two times a day. tamsulosin (FLOMAX) 0.4 mg Take 1 capsule by mouth daily at bedtime. sodium chloride soluble tablet 1 g Take 1 tablet by mouth three times a day. varenicline (CHANTIX) 1 mg tablet Take 1 tablet by mouth two times a day. amLODIPine (NORVASC) 5 mg tablet Take 1 tablet by mouth once daily. simvastatin (ZOCOR) 40 mg tablet Take 1 tablet by mouth daily at bedtime. buPROPion (WELLBUTRIN) 75 mg tablet Take 1 tablet by mouth two times a day. metFORMIN (GLUCOPHAGE) 1,000 mg tablet Take 1 tablet by mouth daily with breakfast. Omeprazole Magnesium 20 mg tablet Take 20 mg by mouth once daily. albuterol HFA (VENTOLIN HFA) 90 mcg/actuation inhaler Inhale 2 Puffs as instructed every 4 hours asneeded for wheezing/shortness of breath. Blood Pressure Monitor 1 Each two times a day. aspirin, enteric coated (ASPIRIN, ENTERIC COATED) 81 mg EC tablet Take 81 mg by mouth once daily. (Patient not taking: Reported on 02/29/2024) prochlorperazine (COMPAZINE) 10 mg tablet Take 1 tablet by mouth every 6 hours as needed. cyclobenzaprine (FLEXERIL) 10 mg tablet Take 1 tablet by mouth three times a day as needed for muscle spasm. sertraline (ZOLOFT) 100 mg tablet Take 1 tablet by mouth once daily. (Patient not taking: Reported on 02/29/2024) CPAP Initiate Auto PAP @ 5-20 cm of water with humidification. Mask (per patient preference) optional chin strap (if indicated) , filters, tubing, humidifier and lifetime supplies. Blood Pressure Test Kit-Medium kit 1 Kit once daily. No current facility-administered medications for this visit. FAMILY HISTORY Problem Relation Age of Onset Cancer Mother Throat Diabetes Father Alcohol abuse Father Paranoid behavior Father No Known Problems Sister No Known Problems Sister No Known Problems Sister Social History Tobacco Use Smoking status: Former Current packs/day: 0.00 Average packs/day: 0.8 packs/day for 51.0 years (38.3 ttl pk-yrs) Types: Cigarettes Start date: 11/12/1972 Quit date: 11/13/2023 Years since quittin.2 Smokeless tobacco: Never Tobacco comments: smoking 1/2 pack a day now 03/21/2023 Vaping Use Vaping status: current everyday user Substance Use Topics Alcohol use: Yes Alcohol/week: 26.0 standard drinks of alcohol Types: 20 Cans of Beer (12oz), 6 Shots of liquor per week Comment: 2 Drug use: No Comment: past history [place] in the 70's REVIEW OF SYSTEMS GENERAL: Some weight loss, no malaise or fevers/chills, appetite waxes and wanes HEENT: Negative for frequent or significant headaches, No changes in hearing or vision. NECK: Negative for lumps, goiter, pain and significant neck swelling RESPIRATORY: Negative for cough, no hemoptysis, no wheezing, no change in dyspnea or shortness of breath CARDIOVASCULAR: Negative for chest pain, always some leg swelling, no orthopnea, no palpitations GI: No nausea, vomiting, or diarrhea/constipation. No hematochezia/melena. No heartburn or reflux symptoms. : No history of dysuria, frequency or incontinence MUSCULOSKELETAL: Negative for joint pain or swelling. SKIN: Boil on back of left testicle ENDOCRINE: Negative for cold or heat intolerance, polyuria, polydipsia and goiter NEURO: No history of headaches, syncope, paralysis, seizures or tremors MOOD: Negative for depression, anxiety, or suicidal ideation. EXAM: BP 84/52 Pulse 70 Wt 123.8 kg (273 lb) SpO2 100% BMI 41.14 kg/m PHYSICAL EXAM: Physical Exam Vitals reviewed. Constitutional: Appearance: Normal appearance. He is obese. HENT: Head: Normocephalic. Cardiovascular: Rate and Rhythm: Normal rate and regular rhythm. Pulses: Normal pulses. Heart sounds: Normal heart sounds. Pulmonary: Effort: Pulmonary effort is normal. Comments: CTA with CHAMP diminished, chest rise & fall symmetrical Abdominal: General: Bowel sounds are normal. There is distension. Palpations: Abdomen is soft. Tenderness: There is no abdominal tenderness. There is no guarding or rebound. Musculoskeletal: General: Normal range of motion. Cervical back: Neck supple. Comments: Trace lauren. Lower ext. edema Skin: General: Skin is warm and dry. Neurological: General: No focal deficit present. Mental Status: He is alert and oriented to person, place, and time. Psychiatric: Mood and Affect: Mood normal. Behavior: Behavior normal. LABS: labs with next chemo labs draw ASSESSMENT/PLAN: 1. Skin infection - ICD9: 686.9, ICD10: L08.9 (primary diagnosis) - Improving - Warm moist compress - AMOXICILLIN 875 MG-POTASSIUM CLAVULANATE 125 MG TABLET 2. Encounter for screening examination for other mental health and behavioral disorders - ICD9: V79.8, ICD10: Z13.39 No anxiety - ANXIETY SCREENING 3. Encounter for immunization - ICD9: V03.89, ICD10: Z23 - RSV VACCINE, BIVALENT (ABRYSVO) 4. Hypertension, essential - ICD9: 401.9, ICD10: I10 - Controlled - Recommend home blood pressure monitoring, to bring results to next visit - Encouraged sodium restriction, DASH or Mediterranean diet - Recommend regular aerobic exercise - MAGNESIUM 5. Coronary artery calcification seen on CAT scan - ICD9: 414.00, ICD10: I25.10 Stable 6. 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) - ICD9: 197.7, ICD10: C78.7 Following with oncology - THYROID STIMULATING HORMONE - T4 FREE/FREE THYROXINE 7. 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 Prediabetes - ICD9: 790.29, ICD10: R73.03 Check HgA1c - HEMOGLOBIN A1C Discussed treatment plan and patient voices understanding. Patient's questions answered appropriately. Medications and potential side effects were discussed and patient voices understanding. Return to the office as scheduled or as needed for worsening/no improvement. Tyra Martell APRN.KIMBERLY documented in this encounterC[facility]10-09-2024 Telephone encounter Note * Telephone Encounter - Penny Kerns LPN - 02/28/2024 1:41 PM EDT Call to patient to see if he ever got a new monitor and voicemail is full. [facility]10-[facility] Telephone encounter Note* Telephone Encounter - Nae Bob LPN - 02/28/2024 7:43 AM EDT Checking to see if this was done. Pleae review and close when completed. Nae Bob LPN [facility]10-03-2024 Telephone encounter Note* Telephone Encounter - Tyra Martell APRN.CNP - 02/22/2024 3:09 PM EDT Order signed but we may have to res[facility]- [facility] Telephone encounter Note* Telephone Encounter - Tyra Martell APRN.CNP - 02/22/2024 2:52 PM EDT The following approved medication requests have been transmitted electronically. Requested Prescriptions Pending Prescriptions Disp Refills albuterol HFA (VENTOLIN HFA) 90 mcg/actuation inhaler 4 Each 3 Sig: Inhale 2 Puffs as instructed every 4 hours as needed for wheezing/shortness of breath. Tyra Martell APRN.CNP [facility]10-03-2024 Miscellaneous Notes* Telephone Encounter - Tyra Martell APRN.CNP - 02/22/2024 2:52 PM EDT The following approved medication requests have been transmitted electronically. Requested Prescriptions Pending Prescriptions Disp Refills albuterol HFA (VENTOLIN HFA) 90 mcg/actuation inhaler 4 Each 3 Sig: Inhale 2 Puffs as instructed every 4 hours as needed for wheezing/shortness of breath. Tyra Martell APRN.CNP * Telephone Encounter - Poly Flores - 02/22/2024 12:42 PM EDT Prescription Refill Information The patient has been identified by name and date of : Yes Caregiver verified no other encounters exist for this prescription request: Yes Caregiver confirmed with patient/requestor that no other refills are due, in the near future, with this provider at this time: Yes The last office visit in the department: 12/12/2023 Does the patient have a future office visit with this provider/department: Yes Requested Prescriptions Pending Prescriptions Disp Refills albuterol HFA (VENTOLIN HFA) 90 mcg/actuation inhaler 1 Each 3 Sig: Inhale 2 Puffs as instructed every 4 hours as needed for wheezing/shortness of breath. Poly Flores February 22, 2024 12:43 PM documented in this encounterC[facility]10-03-2024 Telephone encounter Note * Telephone Encounter - Nae Bob LPN - 02/22/2024 2:43 PM EDT Pt calling to get a blood pressure monitor sent to his pharmacy. The one he hs just quit working. Pt reports his blood pressure has been running low the last 3 days. FYI: Pt calls and states the following: LOW BLOOD PRESSURE- not certain if his machine may of been off. BLOOD PRESSURE: running low last 3 days ONSETS: started 3 days ago HOW: blood pressure machine automatic HISTORY: no MEDICATIONS: taking medications and has not missed any doses PULSE RATE: no OTHER SYMPTOMS: nothing to report Pt is going thru lung/liver cancer and now into bones. Pt taking treatment and doing okay with this. Please review and send blood pressure machine prescription to the pharmacy. Nae Bob LPN [facility]10-03-[facility] Nurse Note* Marilee Fraser LPN - 02/22/2024 1:56 PM EDT Patient presents with: Imm/Inj Pt is identified by name and birthdate: Yes. Allergies and medications reviewed. Latex allergy? No. Does this patient have: Unplanned weight loss or gain of greater than 10 pounds, or a change of appetite over the last year? No Does the patient have any concerns about safety in the home/falls? Not at risk for falls Has the patient fallen in the past year? No Does the patient have difficulty performing or completing routine daily living activities? No Does this patient have concerns about personal safety? No Is patient having pain? Pain: No=0 (pain 0 on a scale of 0-10). Health Maintenance: Reviewed and updated. Does patient have MyChart access or Caregiver proxy: yes Pt/Caregiver willingness and readiness to learn assessed: Yes. Barriers: none Fulphila injection administered, left arm, tolerated well, no immediate adverse reactions noted. Marilee Fraser LPN [facility]10-03-[facility] Nurse Note* Marilee Fraser LPN - 02/22/2024 1:56 PM EDT Patient presents with: Imm/Inj Pt is identified by name and birthdate: Yes. Allergies and medications reviewed. Latex allergy? No. Does this patient have: Unplanned weight loss or gain of greater than 10 pounds, or a change of appetite over the last year? No Does the patient have any concerns about safety in the home/falls? Not at risk for falls Has the patient fallen in the past year? No Does the patient have difficulty performing or completing routine daily living activities? No Does this patient have concerns about personal safety? No Is patient having pain? Pain: No=0 (pain 0 on a scale of 0-10). Health Maintenance: Reviewed and updated. Does patient have MyChart access or Caregiver proxy: yes Pt/Caregiver willingness and readiness to learn assessed: Yes. Barriers: none Fulphila injection administered, left arm, tolerated well, no immediate adverse reactions noted. Marilee Fraser LPN documented in this encounterC[facility]10-03-2024 Telephone encounter Note * Telephone Encounter - Poly Flores - 02/22/2024 12:42 PM EDT Prescription Refill Information The patient has been identified by name and date of : Yes Caregiver verified no other encounters exist for this prescription request: Yes Caregiver confirmed with patient/requestor that no other refills are due, in the near future, with this provider at this time: Yes The last office visit in the department: 12/12/2023 Does the patient have a future office visit with this provider/department: Yes Requested Prescriptions Pending Prescriptions Disp Refills albuterol HFA (VENTOLIN HFA) 90 mcg/actuation inhaler 1 Each 3 Sig: Inhale 2 Puffs as instructed every 4 hours as needed for wheezing/shortness of breath. Poly Flores February 22, 2024 12:43 PM [facility]-03-[facility] Telephone encounter Note* Telephone Encounter - Marilee Fraser LPN - 02/22/2024 10:31 AM EDT Noted. Marilee Fraser LPN [facility]10-03-2024 Miscellaneous Notes* Telephone Encounter - Marilee Fraser LPN - 02/22/2024 10:31 AM EDT Noted. Marilee Fraser LPN * Telephone Encounter - Mee Tineo - 02/22/2024 9:42 AM EDT Patient's back is hurting and doesn't want to come in at 10:45 for injection. Rescheduled injectionto 2:00 PM today in the hopes that he will be feeling better by then. Mee Tineo documented in this encounterC[facility]10-03-2024 Telephone encounter Note * Telephone Encounter - Mee Tineo - 02/22/2024 9:42 AM EDT Patient's back is hurting and doesn't want to come in at 10:45 for injection. Rescheduled injectionto 2:00 PM today in the hopes that he will be feeling better by then. Mee Tineo [facility]09-27-2024 NoteT[facility]09-27-[facility]24 History of Present illness Narrative* Koffi Huerta APRN.CNP - 02/16/2024 8:06 AM EDT Chief Complaint Patient presents with: Established Patient HPI: Abdirizak Colindres is a 68 year old male who presents here today for evaluation for treatment on Monday. Per Dr. Renteria's previous note: H/o Has been undergoing lung cancer screening. Had stable nodules. Recent CT abdomen pelvis identified a nonspecific 2.1 cm lesion in segment 8 of the liver that could be further evaluated due to lack of contrast. Was also found to have right lower lobe pulmonary nodules as well as right hilar adenopathy. A PET scan was obtained on 12/14/2023. Patient was found to have hypermetabolic right hilar adenopathy as well as an infrahilar right-sided mass. There were multiple hypermetabolic foci involving bothlobes of the liver as well as hypermetabolic periportal and portacaval adenopathy. There is diffuse heterogeneous marrow activity but several discrete foci of increased uptake including the bilateralfemoral with SUV of 6.7 in the left proximal femur and bilateral humeri with a 6.6 right proximal humerus lesion. There were bilateral bony pelvis, sacrum and multilevels and thoracolumbar spine max SUV 4 at T12 and max SUV 4.3 at T9. Had a biopsy one of the liver lesions on 01/01/2024. Pathology: Small cell carcinoma. Current therapy:tecentriq/carbo/etoposide Began 01/29/24 Appetite:Eh, it comes in spurts. Wt. down 2# Energy level:Good. Denies fevers. Mouth:denies sores Resp:chronic cough -taking mucinex, sob stable Cardiac:denies chest pain/palpitations GI:denies abd pain, one episode of nausea, denies vomiting, moving bowels regularly :denies dysuria/hematuria Extrem:chronic low back pain/L ankle pain, denies new pain Neuro:denies symptoms of neuropathy Skin:denies rashes Heme:denies bleeding The ROS is otherwise negative. Past medical history, appointments, medications, allergies reviewed. No changes. EXAM: BP 129/80 Pulse 96 Temp 36.2 C (97.2 F) Wt 124.8 kg (275 lb 2.2 oz) SpO2 97% BMI 41.46 kg/m APPEARANCE Well appearing, alert, in no acute distress, well-hydrated, well nourished. HEART RRR with normal S1 and S2, no murmurs LUNG clear to auscultation although diminished throughout LYMPH NODES No cervical lymphadenopathy, No supraclavicular lymphadenopathy, and No axillary lymphadenopathy. ABDOMEN obese bowel sounds normoactive, soft, non-tender EXTREMITIES chronic BLE edema/stasis changes NEURO Awake, alert and oriented x 3, using w/c today and No involuntary motions. SKIN Skin color, texture, turgor normal, no suspicious rashes or lesions LABS: Latest Ref Rng 12/30/2023 01/29/2024 02/16/2024 WBC 3.70 - 11.00 k/uL 8.39 8.21 12.41 (H) (P) RBC 4.20 - 6.00 m/uL 3.99 (L) 3.63 (L) 3.20 (L) (P) Hemoglobin 13.0 - 17.0 g/dL 12.9 (L) 11.3 (L) 9.9 (L) (P) Hematocrit 39.0 - 51.0 % 38.2 (L) 33.3 (L) 30.8 (L) (P) MCV 80.0 - 100.0 fL 95.7 91.7 96.3 (P) MCH 26.0 - 34.0 pg 32.3 31.1 30.9 (P) MCHC 30.5 - 36.0 g/dL 33.8 33.9 32.1 (P) RDW-CV 11.5 - 15.0 % 14.6 15.1 (H) 16.7 (H) (P) Platelet Count 150 - 400 k/uL 315 296 313 (P) MPV 9.0 - 12.7 fL 10.2 10.0 10.1 (P) Neut% % 77.7 Abs Neut (ANC) 1.45 - 7.50 k/uL 6.38 Lymph% % 11.9 Abs Lymph 1.00 - 4.00 k/uL 0.98 (L) Bibb% % 7.1 Abs Bibb <0.87 k/uL 0.58 Eosin% % 0.5 Abs Eosin <0.46 k/uL 0.04 Baso% % 0.5 Abs Baso <0.11 k/uL 0.04 Immature Gran % % 2.3 IMMATURE GRANS (ABS) <0.10 k/uL 0.19 (H) NRBC /100 WBC 0.0 Absolute nRBC <0.01 k/uL <0.01 <0.01 DTYPE Auto (P) Preliminary CMP/Mag: Pending ASSESSMENT/PLAN: 1. 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) - ICD9: 197.7, ICD10: C78.7 3. Metastatic cancer to bone (HCC) - ICD9: 198.5, ICD10: C79.51 4. 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 - Reviewed prelim CBC with pt. - CMP/Mag pending. - Continue current medications. - Continue zometa every 3 months. - CT's after this cycle. - Proceed as scheduled on Monday for #2 tecentriq/carbo/etoposide pending labs. - Follow up as scheduled otherwise. - Pt. aware to call office with any questions/concerns. The patient indicates understanding of these issues and agrees with the plan. All documentation from previous visit of 01/12/24-Dr. Renteria was copied and pasted, documentation hasbeen reviewed and edited as necessary for today's visit. Koffi Huerta APRN.LAMINATION 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 documented in this encounterC[facility] Telephone encounter Note * Telephone Encounter - Kayli August RN - 02/06/2024 2:40 PM EDT TOXICITY CHECK SYMPTOM ASSESSMENT The patient is on Carboplatin/etoposide/Tecentriq Patient stated today was a great day and he feels good. Headache: No Visual Changes: No Dizziness: No Do you have any periods of confusion? No Mood changes: No Mouth or throat pain: felt like he bit his tongue two days ago. Patient stated stated about custodial down my throat is sore. Discussed the baking soda/salt rinses. Appetite: no changes in appetite, appetite good Taste changes: No Nausea: No Vomiting: No Heartburn: No. Weight gain/loss: No Episodes of palpitations/chest discomfort/pressure/pain No Shortness of breath: No Cough: Nothings changed- unchanged from baseline Diarrhea: no having normal BM's daily. Constipation: no Bladder/Urinary Changes: None Pain: patient stated the rib pain is down to 2/10. He still notices the pain if he takes a deep breath or if he turns a certain way. Pain is much better now after taking tramadol. Fever: No Chills: No Cold sensitivity: No Numbness/weakness: No Edema: No Skin changes: No Itching: No Yellowing of skin or eyes: No Musculoskeletal/joint changes/issues No Bleeding issues: No Activity Level: good Do you need to take naps? No Does the patient need interventions or same day appointment:No Reinforced CURRENT treatment education based on current and anticipated symptoms. Discussed port/line care and patient verbalizes understanding: Not Applicable Patient instructed to contact office or after hours Hematology/Oncology fellow for: temperature ? 100.4; questions or concerns. Patient verbalized understanding of when to seek medical attention and after hours number protocol. Kayli August RN [facility]09-17-2024 Miscellaneous Notes* Telephone Encounter - Kayli August RN - 02/06/2024 2:40 PM EDT TOXICITY CHECK SYMPTOM ASSESSMENT The patient is on Carboplatin/etoposide/Tecentriq Patient stated today was a great day and he feels good. Headache: No Visual Changes: No Dizziness: No Do you have any periods of confusion? No Mood changes: No Mouth or throat pain: felt like he bit his tongue two days ago. Patient stated stated about custodial down my throat is sore. Discussed the baking soda/salt rinses. Appetite: no changes in appetite, appetite good Taste changes: No Nausea: No Vomiting: No Heartburn: No. Weight gain/loss: No Episodes of palpitations/chest discomfort/pressure/pain No Shortness of breath: No Cough: Nothings changed- unchanged from baseline Diarrhea: no having normal BM's daily. Constipation: no Bladder/Urinary Changes: None Pain: patient stated the rib pain is down to 2/10. He still notices the pain if he takes a deep breath or if he turns a certain way. Pain is much better now after taking tramadol. Fever: No Chills: No Cold sensitivity: No Numbness/weakness: No Edema: No Skin changes: No Itching: No Yellowing of skin or eyes: No Musculoskeletal/joint changes/issues No Bleeding issues: No Activity Level: good Do you need to take naps? No Does the patient need interventions or same day appointment:No Reinforced CURRENT treatment education based on current and anticipated symptoms. Discussed port/line care and patient verbalizes understanding: Not Applicable Patient instructed to contact office or after hours Hematology/Oncology fellow for: temperature ? 100.4; questions or concerns. Patient verbalized understanding of when to seek medical attention and after hours number protocol. Kayli August RN documented in this encounterC[facility]-13-[facility]24 Telephone encounter Note * Telephone Encounter - Kayli August RN - 02/02/2024 12:54 PM EDT Patient informed of Dr. Renteria's response, stated understanding. Kayli August RN [facility]09-13-2024 Miscellaneous Notes* Telephone Encounter - Kayli August RN - 02/02/2024 12:54 PM EDT Patient informed of Dr. Renteria's response, stated understanding. Kayli August RN * Telephone Encounter - Corazon Renteria DO - 02/02/2024 12:31 PM EDT He can try Tramadol. Needs to stop Flexeril while taking Tramadol. Can take Tylenol along with Tramadol. The narcotic in Vicodin is only a bit weaker than oxycodone. Corazon Renteria DO * Telephone Encounter - Kayli August RN - 02/02/2024 10:48 AM EDT [facility] Care Coordination FOLLOW-UP NOTE Patient identified by name and date of . YES Spoke to patient Summary: (Reason for follow-up) Medication problem Concerns: (New Barriers to care) Patient stated he took 1 oxycodone IR and it just knocked my butt out. Patient stated he waited until the evening and took another tablet. Patient stated he dropped the medication off at the pharmacy because they're too wicked for me. Patient stated he is unsure if it helped with the pain because I was out. Patient stated he has taken Vicodin before for knee pain and it would make him sleepy but he was able to function and also not get addicted. Patient has been taking tylenol which helpswith his shoulder pain but has not helped with the side pain. Patient stated the pharmacist advisedpatient to hold naloxone while taking oxycodone so he held that medication yesterday. Patient stated he typically takes this every day. Patient is asking if there is something else he can take for pain? Side pain today is 5/10. Patient stated if he avoids taking deep breaths and takes slower breaths it helps. Patient denies worsening SOB. Patient verbalized when to seek Medical Attention and an understanding of after- hours phone numberand process: Yes Care Coordination Plan: Will follow up after speaking to Dr. Dexter August RN February 02, 2024 * Telephone Encounter - Queenie Bradley - 02/02/2024 10:47 AM EDT Patient called stating that oxy rx from yesterday was too strong. He states it knocked him out. He returned medication to pharmacy. Please advise patient. documented in this encounterC[facility]09-13-2024 Telephone encounter Note * Telephone Encounter - Corazon Renteria DO - 02/02/2024 12:31 PM EDT He can try Tramadol. Needs to stop Flexeril while taking Tramadol. Can take Tylenol along with Tramadol. The narcotic in Vicodin is only a bit weaker than oxycodone. Corazon Renteria DO [facility]09-13-2024 Telephone encounter Note* Telephone Encounter - Kayli August RN - 02/02/2024 10:48 AM EDT [facility] Care Coordination FOLLOW-UP NOTE Patient identified by name and date of . YES Spoke to patient Summary: (Reason for follow-up) Medication problem Concerns: (New Barriers to care) Patient stated he took 1 oxycodone IR and it just knocked my butt out. Patient stated he waited until the evening and took another tablet. Patient stated he dropped the medication off at the pharmacy because they're too wicked for me. Patient stated he is unsure if it helped with the pain because I was out. Patient stated he has taken Vicodin before for knee pain and it would make him sleepy but he was able to function and also not get addicted. Patient has been taking tylenol which helpswith his shoulder pain but has not helped with the side pain. Patient stated the pharmacist advisedpatient to hold naloxone while taking oxycodone so he held that medication yesterday. Patient stated he typically takes this every day. Patient is asking if there is something else he can take for pain? Side pain today is 5/10. Patient stated if he avoids taking deep breaths and takes slower breaths it helps. Patient denies worsening SOB. Patient verbalized when to seek Medical Attention and an understanding of after- hours phone numberand process: Yes Care Coordination Plan: Will follow up after speaking to Dr. Dexter August RN February 02, 2024 [facility]09-13-2024 Telephone encounter Note* Telephone Encounter - Queenie Bradley - 02/02/2024 10:47 AM EDT Patient called stating that oxy rx from yesterday was too strong. He states it knocked him out. He returned medication to pharmacy. Please advise patient. T [facility] Work Phone: [phone]) 897-485209-12-2024 Telephone encounter Note* Telephone Encounter - Kayli August RN - 02/01/2024 2:42 PM EDT [facility] Care Coordination FOLLOW-UP NOTE Patient identified by name and date of . YES Spoke to patient Summary: (Reason for follow-up) Called patient and reviewed oxycodone instructions. Can continue tylenol for pain as well. Care Coordination Plan: will follow-up as needed, call with any worsening symptoms. Kayli August RN February 01, 2024 [facility]09-12-2024 Miscellaneous Notes* Telephone Encounter - Kayli August RN - 02/01/2024 2:42 PM EDT [facility] Care Coordination FOLLOW-UP NOTE Patient identified by name and date of . YES Spoke to patient Summary: (Reason for follow-up) Called patient and reviewed oxycodone instructions. Can continue tylenol for pain as well. Care Coordination Plan: will follow-up as needed, call with any worsening symptoms. Kayli August RN February 01, 2024 * Telephone Encounter - Kayli August RN - 02/01/2024 9:28 AM EDT CYCLE 1/DAY 1 POST TREATMENT CALL Today's date: February 01, 2024 Treatment Regimen: Carboplatin/Etoposide/Tecentriq C1D1 Date: 01/29/24 Called patient to follow-up on symptom management. Spoke with patient SYMPTOM ASSESSMENT Neuro: Headache for a couple of days resolved. CV/Resp: SOB and cough- see below GI/: Appetite: no changes in appetite, appetite good Denies N/V/D Integument: None Activity: Patient reported no changes in energy level, energy level fair Pain: Yes, pain rated 6 on a scale of 0-10 (0=none, 10=worst). Location: right side, middle about custodial down my rib cage on the right side. Not on my chestor my belly but on the side Character: stabbing. Duration: Monday. Frequency: intermittent Aggravating: when I laugh, when I sit up and take a deep breath, not really noticeable when I stand up, when I lean forward I feel it. Denies noticing the pain with bending or twisting. Alleviating factors: unsure Patient took tylenol an hour ago and a muscle relaxer recently with no relief. Monday afternoon-I went to get up and my ribs were sore. He noticed when he takes a deep breath in my ribs hurt. SOB- a little, yesterday I parked in the front row and by the time I got to the door, I was out ofbreath. Using his inhaler helped alleviate the SOB. Cough- I cough all the time. Taking Mucinex and he has been coughing up more phlegm. Fever: No Chills: No Any new referrals needed? No Reinforced CURRENT treatment education based on current and anticipated symptoms. Discussed port/line care and patient verbalizes understanding: Not Applicable Patient instructed to contact office or after hours Hematology/Oncology fellow for: temperature ? 100.4; questions or concerns. Patient verbalized understanding of when to seek medical attention and after hours number protocol. Kayli August RN documented in this encounterC[facility]09-12-2024 Nurse Note* Bella Vazuqez LPN - 02/01/2024 11:00 AM EDT Pt here for injection of Fulphilia. Given SQ in right arm. Pt tolerated well. Bella Vazquez LPN [facility]09-12-2024 Nurse Note* Bella Vazquez LPN - 02/01/2024 11:00 AM EDT Pt here for injection of Fulphilia. Given SQ in right arm. Pt tolerated well. Bella Vazquez LPN documented in this encounterC[facility]09-12-2024 Telephone encounter Note * Telephone Encounter - Kayli August RN - 02/01/2024 9:28 AM EDT CYCLE 1/DAY 1 POST TREATMENT CALL Today's date: February 01, 2024 Treatment Regimen: Carboplatin/Etoposide/Tecentriq C1D1 Date: 01/29/24 Called patient to follow-up on symptom management. Spoke with patient SYMPTOM ASSESSMENT Neuro: Headache for a couple of days resolved. CV/Resp: SOB and cough- see below GI/: Appetite: no changes in appetite, appetite good Denies N/V/D Integument: None Activity: Patient reported no changes in energy level, energy level fair Pain: Yes, pain rated 6 on a scale of 0-10 (0=none, 10=worst). Location: right side, middle about custodial down my rib cage on the right side. Not on my chestor my belly but on the side Character: stabbing. Duration: Monday. Frequency: intermittent Aggravating: when I laugh, when I sit up and take a deep breath, not really noticeable when I stand up, when I lean forward I feel it. Denies noticing the pain with bending or twisting. Alleviating factors: unsure Patient took tylenol an hour ago and a muscle relaxer recently with no relief. Monday-I went to get up and my ribs were sore. He noticed when he takes a deep breath in my ribs hurt. SOB- a little, yesterday I parked in the front row and by the time I got to the door, I was out ofbreath. Using his inhaler helped alleviate the SOB. Cough- I cough all the time. Taking Mucinex and he has been coughing up more phlegm. Fever: No Chills: No Any new referrals needed? No Reinforced CURRENT treatment education based on current and anticipated symptoms. Discussed port/line care and patient verbalizes understanding: Not Applicable Patient instructed to contact office or after hours Hematology/Oncology fellow for: temperature ? 100.4; questions or concerns. Patient verbalized understanding of when to seek medical attention and after hours number protocol. Kayli August RN [facility]09-11-2024 [facility] History of Present illness Narrative* Ruth Rodriguez RN - 01/31/2024 8:20 AM EDT Pt. States no changes since yesterday assessment. Pt. Verbally agrees to treatment and denies any jaw pain. Reviewed next appointments and gave handout of schedule. documented in this encounterC[facility]09-10-2024 NoteHNO ID: [id number] Author: RUFUS WILLIAMSON RN Service: ? Author Type: Registered Nurse Type: Progress Notes Filed: 01/30/2024 15:11 Note Text: Pt stated no changes to assessment from tx yesterday. Rufus Williamson RNTuscarawas [facility]09-10-2024 History of Present illness Narrative* Rufus Williamson, JEIMY - 01/30/2024 1:54 PM EDT Pt stated no changes to assessment from tx yesterday. Rufus Williamson, RN documented in this encounterC[facility]09-09-2024 Telephone encounter Note * Telephone Encounter - Mee Tineo - 01/29/2024 1:53 PM EDT Zometa scheduled, referral assigned and chemo start email sent. Mee Tineo [facility]09-09-2024 Miscellaneous Notes* Telephone Encounter - Mee Tineo - 01/29/2024 1:53 PM EDT Zometa scheduled, referral assigned and chemo start email sent. Mee Tineo * Telephone Encounter - Corazon Renteria DO - 01/29/2024 11:33 AM EDT Thank you. Begin q 3 month Zometa on Monday. Corazon Renteria DO * Telephone Encounter - Marilee Fraser LPN - 01/29/2024 11:06 AM EDT Received dental clearnace form from pt. Scanned into system. Pt. Cleared and free of active disease or infection. Marilee Fraser LPN documented in this encounterCleveland [facility]09-09-2024 NoteT[facility]09-09-2024 History of Present illness Narrative* Prasanna Guallpa RN - 01/29/2024 11:55 AM EDT Pt c/o 05/31 chest pain that doesn't radiate for 2 days. Describes it as heaviness but gets betterwith meals. Pt hasn't eaten prior to appointment. Vitals WNL. States that this has happened before and he followed up with cardiology. Last stress test was in October, and last EKG was in August. Dr. Renteria notified. Proceed with treatment. Chest heaviness better after eating a banana per pt. Mag 1.2 today and will receive 4g mag IV today and 2g tomorrow. inspector mechanical notified. documented in this encounterC[facility]09-09-2024 Telephone encounter Note * Telephone Encounter - Corazon Renteria DO - 01/29/2024 11:33 AM EDT Thank you. Begin q 3 month Zometa on Monday. Corazon Renteria DO [facility]09-09-2024 Telephone encounter Note* Telephone Encounter - Marilee Fraser LPN - 01/29/2024 11:06 AM EDT Received dental clearnace form from pt. Scanned into system. Pt. Cleared and free of active disease or infection. Marilee Fraser LPN [facility]09-05-2024 Instructions* Patient Instructions* yTra Martell APRN.CNP - 01/25/2024 9:25 AM EDT 1) reduce labetalol to 100 mg 2 x day- order sent to pharmacy 2) tamsulosin 0.4 mg at bedtime 3) handicapped placard given 4) Appointment in February for wellness documented in this encounterCleveland [facility]09-05-2024 NoteT[facility]09-05-20[facility] History of Present illness Narrative* Tyra Martell APRN.LAMINATION 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 - 01/25/2024 9:08 AM EDT This is a 68 year old male who presents today with: Patient presents with: Urinary Frequency HISTORY OF PRESENT ILLNESS: Abdirizak Colindres is a 68 year old male. Patient presents with: Urinary Frequency Starting chemo on Monday. Sometimes he feels like he has to urinate and can't. It may take a bowel movement to allow him to release his urine. This has been happening for about. No pain. Denies bladder pressure. Drinking some water. 4-5 bottles. On doxycycline for coughing up brown sputum. Some weight loss. 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 Dr Knowles. Rt 04/21/2013: ARTHRP KNE CONDYLE&PLATU MEDIAL&LAT COMPARTMENTS Comment: [facility] Dr. Strauss - left knee 01/05/2024: LIVER BIOPSY No date: OPTX ANKLE DISLOCATION W/REPAIR/INT/XTRNL FIXJ Comment: ORIF Ankle left 05/22/2007: PAST SURGICAL HISTORY OF Comment: ORIF left forearm fracture ALLERGIES Patient has no known allergies. MEDICATIONS Current Outpatient Medications Medication Sig doxycycline monohydrate (MONODOX) 100 mg capsule Take 1 capsule by mouth two times a day for 10 days. aspirin, enteric coated (ASPIRIN, ENTERIC COATED) 81 mg EC tablet Take 81 mg by mouth once daily. prochlorperazine (COMPAZINE) 10 mg tablet Take 1 tablet by mouth every 6 hours as needed. sodium chloride soluble tablet 1 g Take 1 tablet by mouth three times a day. varenicline (CHANTIX) 1 mg tablet Take 1 tablet by mouth two times a day. cyclobenzaprine (FLEXERIL) 10 mg tablet Take 1 tablet by mouth three times a day as needed for muscle spasm. amLODIPine (NORVASC) 5 mg tablet Take 1 tablet by mouth once daily. simvastatin (ZOCOR) 40 mg tablet Take 1 tablet by mouth daily at bedtime. sertraline (ZOLOFT) 100 mg tablet Take 1 tablet by mouth once daily. albuterol HFA (VENTOLIN HFA) 90 mcg/actuation inhaler Inhale 2 Puffs as instructed every 4 hours asneeded for wheezing/shortness of breath. labetalol (TRANDATE) 200 mg tablet Take 1 tablet by mouth two times a day. buPROPion (WELLBUTRIN) 75 mg tablet Take 1 tablet by mouth two times a day. metFORMIN (GLUCOPHAGE) 1,000 mg tablet Take 1 tablet by mouth daily with breakfast. CPAP Initiate Auto PAP @ 5-20 cm of water with humidification. Mask (per patient preference) optional chin strap (if indicated) , filters, tubing, humidifier and lifetime supplies. Blood Pressure Test Kit-Medium kit 1 Kit once daily. Omeprazole Magnesium 20 mg tablet Take 20 mg by mouth once daily. No current facility-administered medications for this visit. FAMILY HISTORY Problem Relation Age of Onset Cancer Mother Throat Diabetes Father Alcohol abuse Father Paranoid behavior Father No Known Problems Sister No Known Problems Sister No Known Problems Sister Social History Tobacco Use Smoking status: Former Current packs/day: 0.00 Average packs/day: 0.8 packs/day for 51.0 years (38.3 ttl pk-yrs) Types: Cigarettes Start date: 11/12/1972 Quit date: 11/13/2023 Years since quittin.2 Smokeless tobacco: Never Tobacco comments: smoking 1/2 pack a day now 03/21/2023 Vaping Use Vaping status: current everyday user Substance Use Topics Alcohol use: Yes Alcohol/week: 26.0 standard drinks of alcohol Types: 20 Cans of Beer (12oz), 6 Shots of liquor per week Comment: 2 Drug use: No Comment: past history [place] in the 70's EXAM: BP 130/62 Pulse 96 Wt 123.4 kg (272 lb) SpO2 98% BMI 40.99 kg/m PHYSICAL EXAM: Physical Exam Vitals reviewed. Constitutional: Appearance: Normal appearance. He is obese. Cardiovascular: Rate and Rhythm: Normal rate and regular rhythm. Pulses: Normal pulses. Heart sounds: Normal heart sounds. Pulmonary: Effort: Pulmonary effort is normal. Breath sounds: Normal breath sounds. Abdominal: General: Bowel sounds are normal. Palpations: Abdomen is soft. Musculoskeletal: General: Normal range of motion. Skin: General: Skin is warm and dry. Neurological: Mental Status: He is alert. LABS: urinalysis negative for nitrates and leukocytes BP 86/60 sitting, 60/0 standing- denies symptoms ASSESSMENT/PLAN: 1. Urinary frequency - ICD9: 788.41, ICD10: R35.0 (primary diagnosis) acute - Patient education for prevention given - UA DIP, URINE (POC) negative for infection 2. Hypertension, essential - ICD9: 401.9, ICD10: I10 - Controlled - Recommend home blood pressure monitoring, to bring results to next visit - Encouraged sodium restriction, DASH or Mediterranean diet - Recommend regular aerobic exercise - LABETALOL 100 MG TABLET 3. Benign prostatic hyperplasia with urinary frequency - ICD9: 600.01, 788.41, ICD10: N40.1, R35.0 acute - Patient education for prevention given - Tamsulosin 0.4 mg at bedtime 4. 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) - ICD9: 197.7, ICD10: C78.7 - Start chemo Discussed treatment plan and patient voices understanding. Patient's questions answered appropriately. Medications and potential side effects were discussed and patient voices understanding. Return to the office as scheduled or as needed for worsening/no improvement. Tyra Martell APRN.CNP documented [facility] Telephone encounter Note * Telephone Encounter - Treasure Nguyen RN - 01/23/2024 4:47 PM EDT Call to patient, aware of Dr. Renteria instructions below and Rx to [facility]. Instructed to also push fluids to help Mucinex work. Patient states understanding. Advised to call back in with any new/worseningsymptoms and reminded of after hours number if needed. Dalia Nguyen RN [facility] Work Phone: 1(746) 205-180709-03-2024 Miscellaneous Notes* Telephone Encounter - Treasure Nguyen RN - 01/23/2024 4:47 PM EDT Call to patient, aware of Dr. Renteria instructions below and Rx to [facility]. Instructed to also push fluids to help Mucinex work. Patient states understanding. Advised to call back in with any new/worseningsymptoms and reminded of after hours number if needed. Dalia Nguyen RN * Telephone Encounter - Corazon Renteria DO - 01/23/2024 4:35 PM EDT Recommend Mucinex extra strength every 12 hours and doxycycline twice daily x 10 days. Rx sent. Corazon Renteria DO * Telephone Encounter - Kayli August RN - 01/23/2024 2:55 PM EDT SCLC. Has not started treatment yet- 01/29/24. Reports cough and 3 episodes of brown tinged phlegm and a little tiny spot of blood. SOB Do you feel short of breath? no but has felt a little bit of tightness in his chest. Patient stated he drinks water when this occurs which helps. Any pain with breathing? no Feels a little bit of pressure from the very top of my chest in the center. Patient stated he feels his symptoms are related to having a hiatal hernia. Patient stated other than that I'm feeling pretty good. FEVER Do you have a recent fever? no COUGH Do you have a cough? Yes I've been coughing and hacking stuff up for the past how many months. Usually coughs up clear or yellow phlegm. Patient denies his cough being worse than his normal baseline. Patient stated he has been having a coughing episodes that lasts 1-2 minutes and he feels like heis going to puke, he coughs up phlegm, and then he feels better. Is your cough productive? Yes What color is the sputum? Today was the first time he had brown and a little tiny spot of blood. 3 episodes. Does your cough worsen with activity? no Does your cough worsen when you lie down? no Are you taking anything for the cough? Mucinex, Helps loosen the phlegm. Denies cold symptoms. BP is normal. Denies blowing out any bloody mucous from his nose. Patient aware this nurse will provide Dr. Renteria with an update and will call back with further instructions. Kayli August RN * Telephone Encounter - Queenie Bradley - 01/23/2024 2:45 PM EDT Patient called to update the office that he had coughed up some brown stuff and noticed a little spot of blood in it. He was informed to contact office with any change. documented in this encounterC[facility] Telephone encounter Note * Telephone Encounter - Corazon Renteria DO - 01/23/2024 4:35 PM EDT Recommend Mucinex extra strength every 12 hours and doxycycline twice daily x 10 days. Rx sent. Corazon Renteria DO [facility]09-[facility] Telephone encounter Note* Telephone Encounter - Kayli August RN - 01/23/2024 2:55 PM EDT SCLC. Has not started treatment yet- 01/29/24. Reports cough and 3 episodes of brown tinged phlegm and a little tiny spot of blood. SOB Do you feel short of breath? no but has felt a little bit of tightness in his chest. Patient stated he drinks water when this occurs which helps. Any pain with breathing? no Feels a little bit of pressure from the very top of my chest in the center. Patient stated he feels his symptoms are related to having a hiatal hernia. Patient stated other than that I'm feeling pretty good. FEVER Do you have a recent fever? no COUGH Do you have a cough? Yes I've been coughing and hacking stuff up for the past how many months. Usually coughs up clear or yellow phlegm. Patient denies his cough being worse than his normal baseline. Patient stated he has been having a coughing episodes that lasts 1-2 minutes and he feels like heis going to puke, he coughs up phlegm, and then he feels better. Is your cough productive? Yes What color is the sputum? Today was the first time he had brown and a little tiny spot of blood. 3 episodes. Does your cough worsen with activity? no Does your cough worsen when you lie down? no Are you taking anything for the cough? Mucinex, Helps loosen the phlegm. Denies cold symptoms. BP is normal. Denies blowing out any bloody mucous from his nose. Patient aware this nurse will provide Dr. Renteria with an update and will call back with further instructions. Kayli August RN [facility]09-03-[facility] Telephone encounter Note* Telephone Encounter - Queenie Bradley - 01/23/2024 2:45 PM EDT Patient called to update the office that he had coughed up some brown stuff and noticed a little spot of blood in it. He was informed to contact office with any change. [facility] Work Phone: 1(581) 213-888908-30-2024 Telephone encounter Note* Telephone Encounter - Mee Gu RN - 01/19/2024 10:55 AM EDT Patient calls and states that he has to reschedule today's appointment. Patient states that he wentto start his car and it will not start. Patient states that he is feeling much better after yesterday. Patient states that he is starting to eat real food. Patient rescheduled appointment with Ana for next 01/25/2024. Patient has been having urinary frequency without other urinary symptoms. Mee Gu RN [facility]08-30-2024 Miscellaneous Notes* Telephone Encounter - Mee Gu RN - 01/19/2024 10:55 AM EDT Patient calls and states that he has to reschedule today's appointment. Patient states that he wentto start his car and it will not start. Patient states that he is feeling much better after yesterday. Patient states that he is starting to eat real food. Patient rescheduled appointment with Ana for next 01/25/2024. Patient has been having urinary frequency without other urinary symptoms. Mee Gu RN documented in this encounterC[facility]08-29-[facility] Telephone encounter Note * Telephone Encounter - Mee Gu RN - 01/18/2024 10:22 AM EDT Patient call in for 5-6 loose stools since 3 am. Patient has not had anything for the last couple of hours. Patient states that he thinks he had a fever but he think fever has since broke. Patient staying hydrated with Pedialyte and took imodium which has helped with the stools. Patient cancelled appointment for today and rescheduled appointment due to not feeling well. Patient feeling much better than what he did feel like Nurse Triage assessment completed with protocol recommending for disposition of see PCP in 24 hours. Patient is already scheduled with Ana for tomorrow. 01/19/2024. Care advice reviewed with patient, patient stated understanding. Patient advised to contact office or seek evaluation in urgent care or ER if symptoms persist or gets worse. Reason for Disposition [1] MODERATE diarrhea (e.g., 4-6 times / day more than normal) AND [2] age > 70 years Answer Assessment - Initial Assessment Questions 1. DIARRHEA SEVERITY: Patient states that he woke up 3 am. Drank milk and took imodium AD Patient states that he had 5 or 6 extra stools. Has not had any loose stool since he took imodium and milk 2. ONSET: 3 am this morning 3. BM CONSISTENCY: Loose then watery when he started drinking pedilyte 4. VOMITING: Vomited twice; Very little came up. Patient states maybe a half cup. 5. ABDOMEN PAIN: Denies abdominal cramping 6. ABDOMEN PAIN SEVERITY: Denies Pain 7. ORAL INTAKE: Drinking Pedialyte 8. HYDRATION: Denies signs of dehydration/ urinating like normal 9. EXPOSURE: Denies travel, denies exposure, denies food illness. 10. ANTIBIOTIC USE: Denies 11. OTHER SYMPTOMS: Fever but fever has broke since then Protocols used: [id number] [facility]08-29-2024 Miscellaneous Notes* Telephone Encounter - Mee Gu RN - 01/18/2024 10:22 AM EDT Patient call in for 5-6 loose stools since 3 am. Patient has not had anything for the last couple of hours. Patient states that he thinks he had a fever but he think fever has since broke. Patient staying hydrated with Pedialyte and took imodium which has helped with the stools. Patient cancelled appointment for today and rescheduled appointment due to not feeling well. Patient feeling much better than what he did feel like Nurse Triage assessment completed with protocol recommending for disposition of see PCP in 24 hours. Patient is already scheduled with Ana for tomorrow. 01/19/2024. Care advice reviewed with patient, patient stated understanding. Patient advised to contact office or seek evaluation in urgent care or ER if symptoms persist or gets worse. Reason for Disposition [1] MODERATE diarrhea (e.g., 4-6 times / day more than normal) AND [2] age > 70 years Answer Assessment - Initial Assessment Questions 1. DIARRHEA SEVERITY: Patient states that he woke up 3 am. Drank milk and took imodium AD Patient states that he had 5 or 6 extra stools. Has not had any loose stool since he took imodium and milk 2. ONSET: 3 am this morning 3. BM CONSISTENCY: Loose then watery when he started drinking pedilyte 4. VOMITING: Vomited twice; Very little came up. Patient states maybe a half cup. 5. ABDOMEN PAIN: Denies abdominal cramping 6. ABDOMEN PAIN SEVERITY: Denies Pain 7. ORAL INTAKE: Drinking Pedialyte 8. HYDRATION: Denies signs of dehydration/ urinating like normal 9. EXPOSURE: Denies travel, denies exposure, denies food illness. 10. ANTIBIOTIC USE: Denies 11. OTHER SYMPTOMS: Fever but fever has broke since then Protocols used: [id number] documented in this encounterC[facility]08-29-2024 Telephone encounter Note * Telephone Encounter - Nae Bob LPN - 01/18/2024 9:01 AM EDT Pt called and cancelled apt today. Pt not feeling well. Started with diarrhea, vomiting and fever at approx 3 am in the morning. Pt reports starting to feel a little better but still running a slightfever. Pt rescheduled apt till tomorrow 01-19-24. Nae Bob LPN [facility]08-29-2024 Miscellaneous Notes* Telephone Encounter - Nae Bob LPN - 01/18/2024 9:01 AM EDT Pt called and cancelled apt today. Pt not feeling well. Started with diarrhea, vomiting and fever at approx 3 am in the morning. Pt reports starting to feel a little better but still running a slightfever. Pt rescheduled apt till tomorrow 01-19-24. Nae Bob LPN documented in this encounterC[facility]08-28-2024 Telephone encounter Note * Telephone Encounter - Kayli August RN - 01/17/2024 12:51 PM EDT Patient notified that neulasta onpro is not covered and we will keep injection schedule for day 4. Kayli August RN [facility]08-28-[facility]24 Miscellaneous Notes* Telephone Encounter - Kayli August RN - 01/17/2024 12:51 PM EDT Patient notified that neulasta onpro is not covered and we will keep injection schedule for day 4. Kayli August RN * Telephone Encounter - Kayli August RN - 01/17/2024 11:03 AM EDT Patient would prefer neulasta onpro. Can we switch the beacon orders and add to day 3, cancel inj on day 4? Thank you. Scheduled for dental evaluation 01/23/24. Patient does not have antiemetic, order pended for compazine. Kayli August RN documented in this encounterC[facility]08-28-2024 Nurse Note* Kayli August RN - 01/17/2024 11:40 AM EDT This visit was completed via telephone. Kayli August RN [facility] Nurse Note* Kayli August RN - 01/17/2024 11:40 AM EDT This visit was completed via telephone. Kayli August RN * Kayli August RN - 01/17/2024 11:39 AM EDT ONCOLOGY PATIENT EDUCATION NOTE TOPIC: Chemotherapy Immunotherapy, Medications: Carbo/etoposide/tecentriq/neulasta/zometa patient called today for education for treatment of Non-Small Cell Lung Cancer Anticipated/Scheduled start date: 01/29/24 READINESS TO LEARN: COGNITIVE ABILITY: Alert and oriented MOTIVATION TO LEARN: Interested FAMILY SUPPORT: High - Very involved in pt care INSTRUCTION PROVIDED TO: Patient and Spouse INSTRUCTION PROVIDED BY: Nurse Coordinator PATIENT LEARNS BEST BY: Multiple Methods FACTORS AFFECTING LEARNING: None PHYSICAL LIMITATIONS AFFECTING LEARNING: None LEARNING RESPONSE METHOD OF INSTRUCTION: Individual instruction Written instruction/Handouts Verbal instruction PATIENT/FAMILY RESPONSE: Verbalizes understanding of: CHEMOTHERAPY-Regimen, toxicity and side effects FOLLOW UP PLAN: Patient instructed to call with any further issues Recommend - Recommend continued instruction and follow up as directed Follow up phone call. Contact information given. SUPPLEMENTAL MATERIAL: Written material was provided at this visit with the following information: - Chemotherapy Immunotherapy education was provided by a pharmacist NO - Side effect management information was provided/discussed including but not limited to: anemia, appetite changes, arthralgia, bowel habit changes, diet, electrolyte disturbances, fatigue, hair loss, infection, mouth hygiene, mucositis, myalgia, nausea/vomitting, rash, skin changes, taste changes, thrombocytopenia YES - Provided important phone numbers and contacts during and after hours. YES - Provided information on symptoms that require immediate assistance. YES - Provided Chemotherapy Immunotherapy when to call handouts YES - Preventing infection. YES - Treatment schedule and confirmation of appointment times. YES - Available support groups. YES - The importance of contraception during the course of chemotherapy YES - Neutropenic fever protocol discussed with patient, which included the importance of reporting anyfever of 100.4F (38.0C) or greater to the healthcare team as noted on the provided wallet card and/or magnet. YES Time Spent: 60 minutes REFERRAL (RECOMMENDATION): N/A Kayli August RN * Kayli August RN - 01/17/2024 11:35 AM EDT Investigator Welfare Pre Chemo Patient identified by name and date of . YES Confirmed date and time for chemotherapy ? YES Other appointments (labs, imaging) discussed? YES Discussed where to park (grain [place] or [place]), charge for parking YES Discussed where to report (building/floor) YES Any pre-medications ordered? NO Described the infusion room and what to expect. (What to wear, what to bring [iPad, books] amount of time treatment can take, meals and CC options for food) YES Note: Discussed whether the patient can eat prior to labs and treatment. YES Who is driving you to and from treatment? Spouse Discussed why it is important to bring someone with you. Yes, for the first treatment Resources discussed (music therapy, Art therapy, pet therapy, etc.) NO Education on chemotherapy (drug, side effects) discussed and that the patient will be receiving a C1D1 call within 7 days of treatment. YES Other topics discussed, interventions needed: Kayli August RN documented in this encounterC[facility]08-28-2024 Nurse Note* Kayli August RN - 01/17/2024 11:39 AM EDT ONCOLOGY PATIENT EDUCATION NOTE TOPIC: Chemotherapy Immunotherapy, Medications: Carbo/etoposide/tecentriq/neulasta/zometa patient called today for education for treatment of Non-Small Cell Lung Cancer Anticipated/Scheduled start date: 01/29/24 READINESS TO LEARN: COGNITIVE ABILITY: Alert and oriented MOTIVATION TO LEARN: Interested FAMILY SUPPORT: High - Very involved in pt care INSTRUCTION PROVIDED TO: Patient and Spouse INSTRUCTION PROVIDED BY: Nurse Coordinator PATIENT LEARNS BEST BY: Multiple Methods FACTORS AFFECTING LEARNING: None PHYSICAL LIMITATIONS AFFECTING LEARNING: None LEARNING RESPONSE METHOD OF INSTRUCTION: Individual instruction Written instruction/Handouts Verbal instruction PATIENT/FAMILY RESPONSE: Verbalizes understanding of: CHEMOTHERAPY-Regimen, toxicity and side effects FOLLOW UP PLAN: Patient instructed to call with any further issues Recommend - Recommend continued instruction and follow up as directed Follow up phone call. Contact information given. SUPPLEMENTAL MATERIAL: Written material was provided at this visit with the following information: - Chemotherapy Immunotherapy education was provided by a pharmacist NO - Side effect management information was provided/discussed including but not limited to: anemia, appetite changes, arthralgia, bowel habit changes, diet, electrolyte disturbances, fatigue, hair loss, infection, mouth hygiene, mucositis, myalgia, nausea/vomitting, rash, skin changes, taste changes, thrombocytopenia YES - Provided important phone numbers and contacts during and after hours. YES - Provided information on symptoms that require immediate assistance. YES - Provided Chemotherapy Immunotherapy when to call handouts YES - Preventing infection. YES - Treatment schedule and confirmation of appointment times. YES - Available support groups. YES - The importance of contraception during the course of chemotherapy YES - Neutropenic fever protocol discussed with patient, which included the importance of reporting anyfever of 100.4F (38.0C) or greater to the healthcare team as noted on the provided wallet card and/or magnet. YES Time Spent: 60 minutes REFERRAL (RECOMMENDATION): N/A Kayli August RN [facility]08-28-[facility] Nurse Note* Kayli August RN - 01/17/2024 11:35 AM EDT Investigator Welfare Pre Chemo Patient identified by name and date of . YES Confirmed date and time for chemotherapy ? YES Other appointments (labs, imaging) discussed? YES Discussed where to park ([place] or [place] grow[place]), charge for parking YES Discussed where to report (building/floor) YES Any pre-medications ordered? NO Described the infusion room and what to expect. (What to wear, what to bring [iPad, books] amount of time treatment can take, meals and CC options for food) YES Note: Discussed whether the patient can eat prior to labs and treatment. YES Who is driving you to and from treatment? Spouse Discussed why it is important to bring someone with you. Yes, for the first treatment Resources discussed (music therapy, Art therapy, pet therapy, etc.) NO Education on chemotherapy (drug, side effects) discussed and that the patient will be receiving a C1D1 call within 7 days of treatment. YES Other topics discussed, interventions needed: Kayli August RN [facility]08-28-[facility] Telephone encounter Note* Telephone Encounter - Kayli August RN - 01/17/2024 11:03 AM EDT Patient would prefer neulasta onpro. Can we switch the beacon orders and add to day 3, cancel inj on day 4? Thank you. Scheduled for dental evaluation 01/23/24. Patient does not have antiemetic, order pended for compazine. Kayli August, RN [facility]08-27-2024 Telephone encounter Note* Telephone Encounter - Mee Tineo - 01/16/2024 9:18 AM EDT Scheduled as directed. Mee Tineo [facility]08-[facility]24 Miscellaneous Notes* Telephone Encounter - Mee Tineo - 01/16/2024 9:18 AM EDT Scheduled as directed. Mee Tineo * Telephone Encounter - Corazon Renteria DO - 01/15/2024 8:40 PM EDT He will need Neulasta day 4. Corazon Renteria DO documented in this encounterC[facility]08-26-2024 Telephone encounter Note * Telephone Encounter - Corazon Renteria DO - 01/15/2024 8:40 PM EDT He will need Neulasta day 4. Corazon Renteria DO [facility]08-26-[facility] Telephone encounter Note* Telephone Encounter - Marilee Fraser LPN - 01/15/2024 9:48 AM EDT Spoke with pt. Informed to stop the Zoloft, contact his PCP or urologist concerning his urinary symptoms. Pt. Voiced understanding. Marilee Fraser LPN [facility]08-26-2024 Miscellaneous Notes* Telephone Encounter - Marilee Fraser LPN - 01/15/2024 9:48 AM EDT Spoke with pt. Informed to stop the Zoloft, contact his PCP or urologist concerning his urinary symptoms. Pt. Voiced understanding. Marilee Fraser LPN * Telephone Encounter - Corazon Renteria DO - 01/14/2024 3:31 PM EDT Thank you. Stop Zoloft altogether then. Have PCP's office or urology here see regarding possible urinary retention/symptoms of BPH. Corazon Renteria DO * Telephone Encounter - Machelle Thakkar - 01/14/2024 3:13 PM EDT I called and let Harinder know the below information and he stated understanding. Patient stated he has been trying to cut salt out of his diet because he was eating to much. He stated that he will pay attention to how much liquid he is drinking and cut back on his Zoloft. He stated he could cut his Zoloft out completely because he did stop it in the past for 1 month and did not notice a difference,he said he is only taking it because they refill it and give it to him at the pharmacy. Additionally he stated that when had asked him he was not having any issues with urination or bowel movements and now he is. He stated that he does not feel like he is able to fully empty his bladder and so then he goes again after about 10 minutes. I did schedule him for lab work on Monday at 10 am and then possible 2 hour IV Hydration at 10:30 am Machelle Yuan * Telephone Encounter - Corazon Renteria DO - 01/14/2024 2:18 PM EDT Can let him know MRI brain showed no evidence of brain metastases. Salt level is low in the bloodstream. Start salt tablets 3 times daily. Restrict all fluid intake to 2 quarts or less a day. This isvery important. Also I want him to cut his Zoloft dose in half as it can contribute to low salt levels. Schedule for BMP with possible 2-hour hydration on Monday. Corazon Renteria DO documented in this encounterC[facility]08-[facility]-2024 Telephone encounter Note * Telephone Encounter - Corazon Renteria DO - 01/14/2024 3:31 PM EDT Thank you. Stop Zoloft altogether then. Have PCP's office or urology here see regarding possible urinary retention/symptoms of BPH. Corazon Renteria DO [facility]08-[facility] Telephone encounter Note* Telephone Encounter - Machelle Thakkar - 01/14/2024 3:13 PM EDT I called and let Harinder know the below information and he stated understanding. Patient stated he has been trying to cut salt out of his diet because he was eating to much. He stated that he will pay attention to how much liquid he is drinking and cut back on his Zoloft. He stated he could cut his Zoloft out completely because he did stop it in the past for 1 month and did not notice a difference,he said he is only taking it because they refill it and give it to him at the pharmacy. Additionally he stated that when had asked him he was not having any issues with urination or bowel movements and now he is. He stated that he does not feel like he is able to fully empty his bladder and so then he goes again after about 10 minutes. I did schedule him for lab work on Monday at 10 am and then possible 2 hour IV Hydration at 10:30 am Machelle Belles Pss [facility]08-25-2024 Telephone encounter Note* Telephone Encounter - Corazon Renteria DO - 01/14/2024 2:18 PM EDT Can let him know MRI brain showed no evidence of brain metastases. Salt level is low in the bloodstream. Start salt tablets 3 times daily. Restrict all fluid intake to 2 quarts or less a day. This isvery important. Also I want him to cut his Zoloft dose in half as it can contribute to low salt levels. Schedule for BMP with possible 2-hour hydration on Monday. Corazon Renteria DO [facility]08-25-2024 Telephone encounter Note* Telephone Encounter - Queenie Bradley - 01/14/2024 10:56 AM EDT completed [facility] Work Phone: [phone]) 327-429408-25-2024 Miscellaneous Notes* Telephone Encounter - Queenie Bradley - 01/14/2024 10:56 AM EDT completed * Telephone Encounter - Marquita Torres - 01/12/2024 2:30 PM EDT Check out comments: Labs today. - completed MRI brain STAT. - scheduled and awaiting authorization Chemo education. - SCHEDULED Start Carbo/Etop next week or early the week after. D1 CBC/CMP/MAG/TSH/T4/LDH/Uric acid/Cortisol. CBC/CMP/MAG every D1 thereafter. CBC/CMP/MAG/OV every other cycle. documented in this encounterC[facility] History of Present illness Narrative* Desirae Muhammad, RT(R) - 01/12/2024 2:40 PM EDT Radiology Service Progress Note DATE OF SERVICE: January 12, 2024 TIME: 3:49 PM PATIENT IDENTITY VERIFICATION COMPLETED USING TWO (2) STANDARD IDENTIFIERS: Name and Date of confirmed by patient verbally. FALL SCREENING: Has the patient had 2 falls in the last year or 1 fall with injury or currently using an Ambulatory Assistive Device (Walker, Cane, Wheelchair, Crutches, etc.)? No PATIENT GENDER DATA: Male PATIENT RELEVANT IMPLANT DATA REVIEWED: Yes PATIENT PRESENTS WITH AN IMPLANTABLE OR ATTACHED CONVEYOR TECHNICIAN: No ALLERGIES: Reviewed and unchanged CONTRAST ALLERGY: NO. EXAM: MRI - CONTRAST TYPE: GROUP II PERIPHERAL IV DATA: Ambulatory: A peripheral IV was started in the Left antecubital site with a Angio cath: 22 gauge. RADIOLOGY DEPARTMENT: MR; Exam(s) Completed: Head: Routine Brain SIGNATURE: RT Marifer(R) PATIENT NAME: Abdirizak Colindres DATE: January 12, 2024 TIME: 3:49 PM documented in this encounterC[facility] Tele[facility] encounter Note* Telephone Encounter - Marquita Torres - 01/12/2024 2:30 PM EDT Check out comments: Labs today. - completed MRI brain STAT. - scheduled and awaiting authorization Chemo education. - SCHEDULED Start Carbo/Etop next week or early the week after. D1 CBC/CMP/MAG/TSH/T4/LDH/Uric acid/Cortisol. CBC/CMP/MAG every D1 thereafter. CBC/CMP/MAG/OV every other cycle. [facility]08-23-2024 [facility] History of Present illness Narrative* Corazon Renteria DO - 01/12/2024 1:17 PM EDT Patient referred by Tyra Martell APRN.CNP for extensive stage small cell lung cancer. The impression and plan will be communicated by way of the shared electronic record or faxed under separatecover letter. HPI: The patient is a 68-year-old male with a past medical history as outlined below. Has been undergoing lung cancer screening. Had stable nodules. Recent CT abdomen pelvis identified a nonspecific 2.1 cm lesion in segment 8 of the liver that could be further evaluated due to lack ofcontrast. Was also found to have right lower lobe pulmonary nodules as well as right hilar adenopathy. A PET scan was obtained on 12/14/2023. Patient was found to have hypermetabolic right hilar adenopathy as well as an infrahilar right-sided mass. There were multiple hypermetabolic foci involving bothlobes of the liver as well as hypermetabolic periportal and portacaval adenopathy. There is diffuse heterogeneous marrow activity but several discrete foci of increased uptake including the bilateralfemoral with SUV of 6.7 in the left proximal femur and bilateral humeri with a 6.6 right proximal humerus lesion. There were bilateral bony pelvis, sacrum and multilevels and thoracolumbar spine max SUV 4 at T12 and max SUV 4.3 at T9. Had a biopsy one of the liver lesions on 01/01/2024. Pathology: Small cell carcinoma. Has history of ROMIE but hard for him to use CPAP mask. Stopped smoking. Frequent productive cough. No hemoptysis. No wheezing now. Breathing much better since quitting smoking. Good appetite. Borderline DM--on metformin. Balance off. Dysequilibrium in shower if closes his eyes for a few months. History of psoriasis--Treated Dupixant and Cosentyx. PAST MEDICAL HISTORY No date: Adjustment disorder with depressed mood No date: Degeneration of intervertebral disc, site unspecified No date: GERD (gastroesophageal reflux disease) No date: Hiatal hernia 10/24/2017: Hyperlipidemia, mixed No date: Hypertension 04/07/2005: Major depressive disorder, recurrent episode (HCC) 07/15/2008: Tobacco use disorder PAST SURGICAL HISTORY 05/22/1999: ARTHROSCOPY KNEE DIAGNOSTIC W/WO SYNOVIAL BX SPX Comment: Arthroscopy, knee right 05/22/2007: ARTHROSCOPY KNEE DIAGNOSTIC W/WO SYNOVIAL BX SPX Comment: Arthroscopy, knee left 04/21/2012: ARTHRP KNE CONDYLE&PLATU MEDIAL&LAT COMPARTMENTS Comment: [facility]. Dr Knowles. Rt 04/21/2013: ARTHRP KNE CONDYLE&PLATU MEDIAL&LAT COMPARTMENTS Comment: [facility] Dr. Strauss - left knee 01/05/2024: LIVER BIOPSY No date: OPTX ANKLE DISLOCATION W/REPAIR/INT/XTRNL FIXJ Comment: ORIF Ankle left 05/22/2007: PAST SURGICAL HISTORY OF Comment: ORIF left forearm fracture ALLERGIES No Known Allergies Current Outpatient Medications Medication Sig varenicline (CHANTIX) 1 mg tablet Take 1 tablet by mouth two times a day. cyclobenzaprine (FLEXERIL) 10 mg tablet Take 1 tablet by mouth three times a day as needed for muscle spasm. amLODIPine (NORVASC) 5 mg tablet Take 1 tablet by mouth once daily. simvastatin (ZOCOR) 40 mg tablet Take 1 tablet by mouth daily at bedtime. sertraline (ZOLOFT) 100 mg tablet Take 1 tablet by mouth once daily. albuterol HFA (VENTOLIN HFA) 90 mcg/actuation inhaler Inhale 2 Puffs as instructed every 4 hours asneeded for wheezing/shortness of breath. labetalol (TRANDATE) 200 mg tablet Take 1 tablet by mouth two times a day. buPROPion (WELLBUTRIN) 75 mg tablet Take 1 tablet by mouth two times a day. metFORMIN (GLUCOPHAGE) 1,000 mg tablet Take 1 tablet by mouth daily with breakfast. Omeprazole Magnesium 20 mg tablet Take 20 mg by mouth once daily. varenicline (CHANTIX) 1 mg tablet Take 0.5 tablets by mouth once daily for 3 days, THEN 0.5 tabletstwo times a day for 4 days, THEN 1 tablet two times a day for 23 days. naltrexone 50 mg tablet Take 1 tablet by mouth once daily. beclomethasone (QVAR REDIHALER) 80 mcg/actuation inhaler Inhale 2 Puffs as instructed twice daily. (Patient not taking: Reported on 08/29/2023) CPAP Initiate Auto PAP @ 5-20 cm of water with humidification. Mask (per patient preference) optional chin strap (if indicated) , filters, tubing, humidifier and lifetime supplies. Blood Pressure Test Kit-Medium kit 1 Kit once daily. No current facility-administered medications for this visit. Social History Tobacco Use Smoking status: Former Current packs/day: 0.00 Average packs/day: 0.8 packs/day for 51.0 years (38.3 ttl pk-yrs) Types: Cigarettes Start date: 11/12/1972 Quit date: 11/13/2023 Years since quittin.1 Smokeless tobacco: Never Tobacco comments: smoking 1/2 pack a day now 03/21/2023 Vaping Use Vaping status: current everyday user Substance Use Topics Alcohol use: Yes Alcohol/week: 26.0 standard drinks of alcohol Types: 20 Cans of Beer (12oz), 6 Shots of liquor per week Comment: 2 Drug use: No Comment: past history [place] in the 70's Family History Problem Relation Age of Onset Cancer Mother Throat Diabetes Father Alcohol abuse Father Paranoid behavior Father No Known Problems Sister No Known Problems Sister No Known Problems Sister ROS: Constitutional: No fever. No drenching night sweats. Normal appetite. Neuro: No recent HOPKINS. No symptoms of sensory neuropathy. HEENT: No recent change in voice, vision or hearing. Resp: No cough, wheeze of hemoptysis. No shortness of breath at rest. CVS: No exertional chest pain, PND or orthopnea. GI: No dysphagia or odynophagia. No reflux, n/v, change in bowel habits. No abdominal pain, bloating or distension. No black or bloody stools. : No dysuria or gross hematuria. Endo: No hot flashes. Musculoskeletal: Chronic LBP. Derm: No psoriasis now. Heme: No unusual bleeding and unexplained bruising. Psych: Normal mood. PHYSICAL EXAM: Vitals: Blood pressure 127/82, pulse 89, temperature (!) 35.7 C (96.3 F), temperature source Temporal, height 173.5 cm (5' 8.31), weight 125.6 kg (277 lb), SpO2 96%. Well-appearing and in no acute distress. EYES: Sclerae are anicteric bilaterally. LYMPHATIC: There is no palpable cervical, supraclavicular, axillary adenopathy. RESPIRATORY: Inspiratory breath sounds are of diminished intensity in all herrera. No rales, wheezesor rhonchi. CARDIOVASCULAR: Rhythm is regular. ABDOMEN: The abdomen is obese and nondistended. No tenderness. Extremities: Mild chronic appearing lower extremity swelling bilaterally. SKIN: No rash noted. NEUROLOGIC: Very shaky when he first stands up. Needs help stepping up onto the exam table. LABS: Latest Ref Rng 08/29/2023 12/30/2023 WBC 3.70 - 11.00 k/uL 9.82 8.39 RBC 4.20 - 6.00 m/uL 4.37 3.99 (L) Hemoglobin 13.0 - 17.0 g/dL 14.1 12.9 (L) Hematocrit 39.0 - 51.0 % 43.2 38.2 (L) MCV 80.0 - 100.0 fL 98.9 95.7 MCH 26.0 - 34.0 pg 32.3 32.3 MCHC 30.5 - 36.0 g/dL 32.6 33.8 RDW-CV 11.5 - 15.0 % 14.4 14.6 Platelet Count 150 - 400 k/uL 268 315 MPV 9.0 - 12.7 fL 11.5 10.2 Neut% % 68.9 Abs Neut (ANC) 1.45 - 7.50 k/uL 6.77 Lymph% % 17.8 Abs Lymph 1.00 - 4.00 k/uL 1.75 Bibb% % 8.9 Abs Bibb <0.87 k/uL 0.87 (H) Eosin% % 2.9 Abs Eosin <0.46 k/uL 0.28 Baso% % 0.5 Abs Baso <0.11 k/uL 0.05 Immature Gran % % 1.0 IMMATURE GRANS (ABS) <0.10 k/uL 0.10 (H) NRBC /100 WBC 0.0 Absolute nRBC <0.01 k/uL <0.01 <0.01 DTYPE Auto Protein, Total 6.3 - 8.0 g/dL 7.1 Albumin 3.9 - 4.9 g/dL 4.2 Calcium 8.5 - 10.2 mg/dL 9.7 Bilirubin, Total 0.2 - 1.3 mg/dL 0.5 Alkaline Phosphatase 38 - 113 U/L 122 (H) AST 14 - 40 U/L 30 ALT 10 - 54 U/L 30 Glucose 74 - 99 mg/dL 120 (H) BUN 9 - 24 mg/dL 17 Creatinine 0.73 - 1.22 mg/dL 0.90 Sodium 136 - 144 mmol/L 137 Potassium 3.7 - 5.1 mmol/L 5.0 Chloride 97 - 105 mmol/L 98 CO2 22 - 30 mmol/L 27 Anion Gap 9 - 18 mmol/L 12 eGFR >=60 mL/min/1.73m 94 ASSESSMENT/PLAN: (C34.01) 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) (primary encounter diagnosis) (K76.9) Liver lesion (R91.8) Lung nodule, multiple (C78.7) 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) (C79.51) Metastatic cancer to bone (HCC) (C77.2) 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 Importantly he was diagnosed with borderline diabetes and has a history of psoriasis treated with Dupixent and Cosentyx in the past. Currently no evidence of psoriasis. He was been diagnosed with extensive stage smallcell carcinoma with metastases to liver, upper abdominal lymph nodes as well as the bones. He is asymptomatic from the bone metastases. -I discussed the natural history, treated course, and prognosis of extensive stage small cell lung cancer with the patient and his . -Explained the goals of care are palliation and prolongation of survival. -I recommended treatment with carboplatin and etoposide along with atezolizumab. I believe the overall survival benefit outweighs the risk of flaring psoriasis. Also discussed the rationale, logistics, potential risks (including but not limited to alopecia, cytopenias, nausea vomiting, diarrhea, rash, infections, the potential for a number of autoimmune sideeffects and the small potential for as a consequence of severe toxicity/complications of therapy), benefits and alternatives, as well as the personnel involved in the administration of carboplatin, etoposide and atezolizumab. I answered his questions in detail and he verbalized understanding and agreed with the recommended therapy. Please see the electronic consent document for details of doses and schedule. Plan: -MRI brain stat. -Dental evaluation since he is a candidate for bisphosphonate therapy once every 3 months.. -Remote hepatitis panel and chemistry panel today. -Chemotherapy teaching. -Anticipate starting treatment week after next. -CBC, CMP, magnesium, TSH, T4, cortisol for cycles 1, 3 and then with monthly atezolizumab thereafter. -CBC, CMP and magnesium for cycles 2 and 4. -CT scans following cycles 2 and 4. Then every 3 months. I spent a total of 70 minutes on the date of the service which included preparing to see the patient, [id number] patient care, completing clinical documentation, obtaining and/or reviewing separately obtained history, performing a medically appropriate examination, counseling and educating the pat ient/family/caregiver, ordering medications, tests, or procedures, communicating with other HCPs (not separately reported), and communicating results to the patient/family/caregiver. Corazon Renteria DO documented in this encounterC[facility] Telephone encounter Note * Telephone Encounter - Anitra Mcduffie APRN.CNP - 01/11/2024 12:35 PM EDT Phone call to patient and notified of the results of liver biopsy. He has appt tomorrow with Oncology to discuss treatment plans. Anitra Mcduffie APRN.CNP [facility] Work Phone: [phone] Miscellaneous Notes* Telephone Encounter - Anitra Mcduffie APRN.CNP - 01/11/2024 12:35 PM EDT Phone call to patient and notified of the results of liver biopsy. He has appt tomorrow with Oncology to discuss treatment plans. Anitra Mcduffie APRN.CNP documented in this encounterC[facility] Telephone encounter Note * Telephone Encounter - Viktoriya Bella RN - 12/26/2023 3:02 PM EDT [facility]08-06-2024 Miscellaneous Notes* Telephone Encounter - Viktoriya Bella RN - 12/26/2023 3:02 PM EDT documented in this encounterC[facility]-2024 Telephone encounter Note * Telephone Encounter - Queenie Bradley - 12/21/2023 9:50 AM EDT Scheduled OV with patient [facility] Work Phone: 1(700) 819-679008-01-2024 Miscellaneous Notes* Telephone Encounter - Queenie Bradley - 12/21/2023 9:50 AM EDT Scheduled OV with patient * Telephone Encounter - Machelle Thakkar - 12/20/2023 2:32 PM EDT I called and was unable to reach patient and his voicemail box was full so I was also unable to leave a message for patient to call our office back Machelle Yuan * Telephone Encounter - Michelle Lundberg LPN - 12/20/2023 9:39 AM EDT Patient is scheduled for a liver biopsy 01/01/2024. PSS- patient will need new patient appointment about 10 days after biopsy to ensure we have pathology results. Michelle Lundberg LPN * Telephone Encounter - Yasmin Diaz - 12/19/2023 1:53 PM EDT Pt is scheduled for his biopsy in [place] 01/01/2024. Can you please schedule him a consult for oncology for the following week to go over results of the biopsy and let him know if he needs any additional testing, or recommend treatment. Pt is aware per Anitra cMduffie, thank you! documented in this encounterC[facility]07-[facility]-2024 Telephone encounter Note * Telephone Encounter - Machelle Thakkar - 12/20/2023 2:32 PM EDT I called and was unable to reach patient and his voicemail box was full so I was also unable to leave a message for patient to call our office back Machelle Yuan [facility]07-31-2024 Telephone encounter Note* Telephone Encounter - Michelle Lundberg LPN - 12/20/2023 9:39 AM EDT Patient is scheduled for a liver biopsy 01/01/2024. PSS- patient will need new patient appointment about 10 days after biopsy to ensure we have pathology results. Michelle Lundberg LPN [facility]07-30-2024 Telephone encounter Note* Telephone Encounter - Yasmin Diaz - 12/19/2023 1:53 PM EDT Pt is scheduled for his biopsy in [place] 01/01/2024. Can you please schedule him a consult for oncology for the following week to go over results of the biopsy and let him know if he needs any additional testing, or recommend treatment. Pt is aware per Anitra Mcduffie, thank you! [facility]07-29-2024 Instructions* Patient Instructions* Anitra Mcduffie APRN.CNP - 12/18/2023 3:28 PM EDT Harinder, as we discussed today the PET scan was abnormal in multiple areas. This is concerning for cancer with metastasis (spread in your body). We are planning to get a needle biopsy (tissue sample) from your liver at the radiology department in [place]. This should give us more definitive information. We will schedule you with the oncologist (cancer doctor) as soon as the biopsy is scheduled to discuss results and give further recommendations/treatment plans. If you or your family have any questions please feel free to reach out. Best Regards, Anitra Mcduffie LAMINATION 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 documented in this encounterCleveland Clinic [facility]07-29-2024 History of Present illness Narrative* Anitra Mcduffie APRN.CNP - 12/18/2023 2:36 PM EDT Images from the original note were not included. Chief Complaint: Follow up 12/05/2023 NM PET for increasing in size RLL lung nodule. History of Present Illness: Abdirizak Colindres is a 68 year old male who is presenting today for pulmonary nodule follow-up. Nodule was found through lung cancer screening on LDCT. Patient has a PMH significant for HTN, HLD, GERD, CAC on CT. Patient is a former smoker with a 38.25 pack year history. Pt quit smoking 11/13/2023. Since the patient's last visit the patient has had new liver lesion. No recent respiratory infections/pneumonia. The patient does not require assistance with normal activities of daily living. Modified Medical Research [place] Dyspnea Scale (MMRC) I only get breathless with strenous exercise 0 Patient denies SOB with their daily activity. No wheezing or dyspnea. Patient denies feeling of chest tightness/congestion in the chest. Patient does not have a new or concerning cough, and denies hemoptysis. Patient does not have a chronic daily cough. Denies regular or recent fevers/chills. Patient does not have any significant unintentional weight loss. Patient denies having any respiratory infections or COVID-19 in the past few months. Pt quit smoking about a month ago and has had significant improvement in his breathing. He has an albuterol inhaler he uses Last 12 Encounter Wt Readings: Date: Wt: 12/12/2023 0 kg () 09/29/2023 132 kg (291 lb) 08/29/2023 130.6 kg (288 lb) 04/18/2023 132.2 kg (291 lb 6.4 oz) 03/21/2023 130.2 kg (287 lb) 02/23/2023 130.6 kg (288 lb) 09/13/2022 131.1 kg (289 lb) 08/16/2022 131.5 kg (290 lb) 02/08/2022 129.3 kg (285 lb) 02/01/2022 129.7 kg (286 lb) 09/24/2021 129.9 kg (286 lb 6.4 oz) 07/22/2021 130.2 kg (287 lb) History of respiratory exposures include: Occupational: None Environmental:second hand smoke as a child Past Medical History: PAST MEDICAL HISTORY Diagnosis Date Adjustment disorder with depressed mood Degeneration of intervertebral disc, site unspecified GERD (gastroesophageal reflux disease) Hiatal hernia Hyperlipidemia, mixed 10/24/2017 Hypertension Major depressive disorder, recurrent episode (HCC) 04/07/2005 Tobacco use disorder 07/15/2008 Surgical Hx: PAST SURGICAL HISTORY Procedure Laterality Date ARTHROSCOPY KNEE DIAGNOSTIC W/WO SYNOVIAL BX SPX 1999 Arthroscopy, knee right ARTHROSCOPY KNEE DIAGNOSTIC W/WO SYNOVIAL BX SPX 2007 Arthroscopy, knee left ARTHRP KNE CONDYLE&PLATU MEDIAL&LAT COMPARTMENTS Apr 2012 [facility]. [address] Knowles. Rt ARTHRP KNE CONDYLE&PLATU MEDIAL&LAT COMPARTMENTS Apr [address] [facility] [address] Strauss - left knee OPTX ANKLE DISLOCATION W/REPAIR/INT/XTRNL FIXJ ORIF Ankle left PAST SURGICAL HISTORY OF 2007 ORIF left forearm fracture Family Hx: FAMILY HISTORY Problem Relation Age of Onset Cancer Mother Throat Diabetes Father Allergies: ALLERGIES No Known Allergies Social History Tobacco Use: .75 packs/day, for 51 years. Quit 11/13/2023. Types: Cigarettes Review Of Systems: See HPI for ROS All of the remainder systems were reviewed and negative. PHYSICAL EXAMINATION: BP (P) 122/74 Pulse (P) 61 Resp (P) 17 SpO2 (P) 97% General appearance: well appearing, in no acute distress, and alert Skin: skin color, texture, turgor normal, no rashes or lesions Nose/Sinuses: Negative Oropharynx: Lips, mucosa, and tongue normal, teeth and gums normal, oropharynx normal Neck: Supple, no adenopathy; thyroid symmetric, normal size Respiratory: lungs clear to auscultation no wheezing or rhonchi Cardiovascular: Negative. RRR without murmur, gallop, or rubs. No ectopy Musculoskeletal: Extremities normal. No deformities, edema, or skin discoloration. Neuro: Oriented X 3 Data Review I have visually reviewed imaging and testing below CT imaging was reviewed and analyzed independently by practitioner. CT was compared to prior CT chest, CT Abdomen and NM PET 12/05/2023 CT Chest 10/24/2023 CT Abdomen 09/14/2023 CT Chest 05/11/2023 LDCT 12/14/2023 9:20 PM - Radiology, [place] In Impression IMPRESSION: HEAD/NECK: * No FDG avid neoplastic process. CHEST: * Hypermetabolic right hilar lymphadenopathy with hypermetabolic right hilar/infrahilar region mass. Mildly hypermetabolic right lower lobe consolidative/nodular opacity as described. Overall findings suspicious for neoplastic process. ABDOMEN/PELVIS: * Multiple hypermetabolic foci involving both lobes of the liver suspicious for liver metastases. * Hypermetabolic periportal/portacaval lymphadenopathy. MUSCULOSKELETAL: * Diffuse marrow uptake in the axial and appendicular skeleton. Several discrete foci of increased uptake as described. Findings concerning for osseous metastases Physician Scientist: ANGEL Transcribe Date/Time: Dec 14 2023 8:51P Dictated by : SCOTTY PEREZ MD This examination was interpreted and the report reviewed and electronically signed by: SCOTTY PEREZ MD on Dec 14 2023 9:18PM EST Results-Findings * * *Final Report* * * DATE OF EXAM: Dec 05 2023 12:17PM MDP 0060 - NM PET/CT SKULL-THIGH INIT / PROCEDURE REASON: R91.8-Lung nodules * * * * Physician Interpretation * * * * EXAMINATION: BODY FDG PET-CT CLINICAL HISTORY: 68 years old Male with Lung nodules . INDICATION: Initial treatment strategy. TECHNIQUE: Radiopharmaceutical was administered IV followed about 60 minutes later by PET imaging from skull base to proximal thigh. Free breathing, low dose CT of the same body region was acquired without IV contrast for attenuation correction and anatomic localization. * CT Dose-Length Product (DLP): 910 mGy*cm * CT Dose Reduction Employed: Yes * Blood glucose (mg/dL): 126 * Radiopharmaceutical Activity: 20 mCi * Radiopharmaceutical: D76-Ageyadraxjnuidvbgp (FDG) * All reported standardized uptake values represent maximum SUV (SUVmax) per body weight, unless otherwise specified. CORRELATION: CT abdomen pelvis 10/24/2023 CT chest 09/14/2023 RESULT: REFERENCES: SUV reference values: * Blood pool (descending aorta) activity: SUVmax 2.1 * Background liver activity: SUVmax 3.3 Nurses Aide (topogram) images: No additional findings. Notes and limitations: * Standardized uptake values indicate the highest activity concentration (SUVmax) at a given location but can be variable and are not absolute. * Physiologic/non-neoplastic uptake is common in the brain, extraocular muscles, oral cavity, tonsils, salivary glands, vocal cords, myocardium, liver, GI tract, urinary tract, and bone marrow among others. Certain regions and organ systems can have more intense uptake, which could confound or obscure some pathology. * Unenhanced imaging is limited for the evaluation of some pathology and the acquired CT was not designed to produce or replace diagnostic CT scan quality. * PET-CT is often not sensitive for pulmonary nodules less than 8 mm. HEAD AND NECK: Imaged Head: No abnormal uptake. Neck & Lymph Nodes: No abnormal uptake. Thyroid: No abnormal uptake. CHEST: Lungs & Airways: Right hilar soft tissue fullness with focal hypermetabolic uptake right hilar/infrahilar region measures about 2.9 x 3.1 cm (max SUV 8.6). More peripheral mild uptake (Max SUV 2.3) possibly inflammatory/post obstructive changes. Mildly hypermetabolic right lower lobe consolidation/nodular opacity measuring about 2.1 x 2.6 cm (max SUV 4.4). Pleura & Pericardium: No abnormal uptake. Cardiovascular: No abnormal uptake. Mediastinum & Lymph Nodes: Hypermetabolic right hilar lymphadenopathy (Max SUV 7.8) ABDOMEN AND PELVIS: Hepatobiliary: Multiple hypermetabolic foci throughout both lobes. For example a focus in the dome measures 1.2 x 1.7 cm (max SUV 7.3), a focus in the anterior segment adjacent the gallbladder fossa measures 1.7 x 3.1 cm (max SUV 10.3), a focus in the inferior right lobe measures 0.9 x 1.7 cm (max SUV 8). Spleen: No abnormal uptake. Pancreas: No abnormal uptake. Adrenals: No abnormal uptake. Urinary Tract: No abnormal uptake. GI Tract: No abnormal uptake. Peritoneum: No abnormal uptake. Vasculature: No abnormal uptake. Retroperitoneum & Lymph Nodes: Hypermetabolic periportal portacaval lymph nodes measuring up to 2.3 x 2.9 cm (max SUV 14.5). Pelvis: No abnormal uptake. MUSCULOSKELETAL: Osseous: Diffuse heterogeneous marrow activity in the axial and appendicular with several discrete foci of increased uptake for example in the bilateral femora (Max SUV 6.7 left proximal femur), bilateral humeri (Max SUV 6.6 right proximal humerus), bilateral bony pelvis, sacrum, multiple levels in the thoracolumbar spine (max SUV 4 at T12 max SUV 4.3 at T9). Mild activity with fracture deformities in the ribs. Soft Tissues: No abnormal uptake. Diffuse uptake about the right shoulder is likely related to degenerative/arthritic changes. Prior PFTS: No textual results found for the specified procedure(s). Assessment and Plan: 1. Pulmonary Nodule: RUL lung nodule is suspicious for malignancy it has been increasing in size and is PET avid. He also has other areas of avidity in his body. Discussed with patient this is concerning for metastatic cancer. Plan for liver biopsy, order has been sent and awaiting IR approval at [facility]. Medical oncology referral placed. Reviewed case with Dr. Subhash Cullen, and Dr. Corazon Renteria.Pt prefers to wait until the liver biopsy is scheduled to set this up. All questions were answered. 2. Nicotine Dependence, Former: Continue to abstain from smoking cigarettes. 3. Liver lesion Radiology at [facility] has the order and will reach out to the patient for scheduling once radiology team has approved this. - IMAGING GUIDED BIOPSY LIVER - CONSULT TO HEMATOLOGY/ONCOLOGY; Future 4. Abnormal PET scan of liver - IMAGING GUIDED BIOPSY LIVER - CONSULT TO HEMATOLOGY/ONCOLOGY; Future 5. Abnormal PET of right lung - CONSULT TO HEMATOLOGY/ONCOLOGY; Future 6. Hilar adenopathy - CONSULT TO HEMATOLOGY/ONCOLOGY; Future Anitra Mcduffie APRN.CNP December 18, 2023 2:41 PM I spent a total of 47 minutes on the date of the service which included preparing to see the patient, [id number] patient care, completing clinical documentation, performing a medically appropriate examination, counseling and educating the patient/family/caregiver, ordering medications, tests, or p rocedures, communicating with other HCPs (not separately reported), independently interpreting results (not separately reported), communicating results to the patient/family/caregiver, and care coordination (not separately reported). documented in this encounterC[facility] Instructions* Patient Instructions* Tyra Martell APRN.CNP - 12/12/2023 9:29 AM EDT 1) Doxycycline 100 mg 2 x day for 10 days (take with food) 2) Ketoconazole wash every other day 3) Continue Chantix 1 mg 2 x day\ 4) Follow up in Feb as scheduled documented in this encounterC[facility] History of Present illness Narrative* Tyra Martell APRN.CNP - 12/12/2023 9:17 AM EDT This is a 68 year old male who presents today with: Patient presents with: Penis/Scrotum Problem: sores HISTORY OF PRESENT ILLNESS: Abdirizak Colindres is a 68 year old male. 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 [place] painful lesions X 2. Drained on Monday purulent bloody drainage. [place] lightheaded at that time. Denies fever or chills. Poor appetite. No fever or chills. Quit smoking PAST MEDICAL HISTORY: PAST MEDICAL HISTORY Diagnosis Date Adjustment disorder with depressed mood Degeneration of intervertebral disc, site unspecified GERD (gastroesophageal reflux disease) Hiatal hernia Hyperlipidemia, mixed 10/24/2017 Hypertension Major depressive disorder, recurrent episode (HCC) 04/07/2005 Tobacco use disorder 07/15/2008 PAST SURGICAL HISTORY Procedure Laterality Date ARTHROSCOPY KNEE DIAGNOSTIC W/WO SYNOVIAL BX SPX 1999 Arthroscopy, knee right ARTHROSCOPY KNEE DIAGNOSTIC W/WO SYNOVIAL BX SPX 2007 Arthroscopy, knee left ARTHRP KNE CONDYLE&PLATU MEDIAL&LAT COMPARTMENTS Apr [address] [facility] Knowles. Rt ARTHRP KNE CONDYLE&PLATU MEDIAL&LAT COMPARTMENTS Apr [address] [facility] [address] Strauss - left knee OPTX ANKLE DISLOCATION W/REPAIR/INT/XTRNL FIXJ ORIF Ankle left PAST SURGICAL HISTORY OF 2007 ORIF left forearm fracture ALLERGIES Patient has no known allergies. MEDICATIONS Current Outpatient Medications Medication Sig cyclobenzaprine (FLEXERIL) 10 mg tablet Take 1 tablet by mouth three times a day as needed for muscle spasm. amLODIPine (NORVASC) 5 mg tablet Take 1 tablet by mouth once daily. simvastatin (ZOCOR) 40 mg tablet Take 1 tablet by mouth daily at bedtime. sertraline (ZOLOFT) 100 mg tablet Take 1 tablet by mouth once daily. albuterol HFA (VENTOLIN HFA) 90 mcg/actuation inhaler Inhale 2 Puffs as instructed every 4 hours asneeded for wheezing/shortness of breath. labetalol (TRANDATE) 200 mg tablet Take 1 tablet by mouth two times a day. buPROPion (WELLBUTRIN) 75 mg tablet Take 1 tablet by mouth two times a day. naltrexone 50 mg tablet Take 1 tablet by mouth once daily. metFORMIN (GLUCOPHAGE) 1,000 mg tablet Take 1 tablet by mouth daily with breakfast. Omeprazole Magnesium 20 mg tablet Take 20 mg by mouth once daily. varenicline (CHANTIX) 1 mg tablet Take 1 tablet by mouth two times a day. (Patient not taking: Reported on 12/12/2023) varenicline (CHANTIX) 1 mg tablet Take 0.5 tablets by mouth once daily for 3 days, THEN 0.5 tabletstwo times a day for 4 days, THEN 1 tablet two times a day for 23 days. beclomethasone (QVAR REDIHALER) 80 mcg/actuation inhaler Inhale 2 Puffs as instructed twice daily. (Patient not taking: Reported on 08/29/2023) CPAP Initiate Auto PAP @ 5-20 cm of water with humidification. Mask (per patient preference) optional chin strap (if indicated) , filters, tubing, humidifier and lifetime supplies. Blood Pressure Test Kit-Medium kit 1 Kit once daily. No current facility-administered medications for this visit. FAMILY HISTORY Problem Relation Age of Onset Cancer Mother Throat Diabetes Father Social History Tobacco Use Smoking status: Former Packs/day: 0.75 Years: 51.00 Additional pack years: 0.00 Total pack years: 38.25 Types: Cigarettes Quit date: 11/13/2023 Years since quittin.0 Smokeless tobacco: Never Tobacco comments: smoking 1/2 pack a day now 03/21/2023 Vaping Use Vaping Use: current everyday user Substance Use Topics Alcohol use: Yes Alcohol/week: 26.0 standard drinks of alcohol Types: 20 Cans of Beer (12oz), 6 Shots of liquor per week Comment: 2 Drug use: No Comment: past history [place] in the 70's EXAM: BP 128/66 Pulse 98 Temp 36.5 C (97.7 F) (Tympanic) Resp 22 SpO2 96% PHYSICAL EXAM: Physical Exam Vitals reviewed. Constitutional: Appearance: Normal appearance. He is obese. Neck: Vascular: No carotid bruit. Comments: Thick full neck Cardiovascular: Rate and Rhythm: Normal rate and regular rhythm. Pulses: Normal pulses. Heart sounds: Normal heart sounds. Pulmonary: Breath sounds: Normal breath sounds. Abdominal: General: Bowel sounds are normal. Palpations: Abdomen is soft. Skin: Comments: Left side of scrotum with 2 sores. Scabbed over. A large orange sized area that is red perimeter. No itching. No drainage. Neurological: Mental Status: He is alert. LABS: ASSESSMENT/PLAN: 1. Cellulitis of skin - ICD9: 682.9, ICD10: L03.90 (primary diagnosis) - Begin treatment with doxycyline 100 mg 2 x day for 10 days - DOXYCYCLINE HYCLATE 100 MG TABLET - KETOCONAZOLE 1 % SHAMPOO 2. Tobacco abuse - ICD9: 305.1, ICD10: Z72.0 - Cessation encouraged. - Physiologic and physical aspects of tobacco addiction as well as strategies for quitting were discussed. - Counseling was given focusing on the harmful effects of this addiction especially given the patient's medical condition(s) which will be worsened because of the chemicals in tobacco. - VARENICLINE 1 MG TABLET 2 x day ongoing Discussed treatment plan and patient voices understanding. Patient's questions answered appropriately. Medications and potential side effects were discussed and patient voices understanding. Return to the office as scheduled or as needed for worsening/no improvement. Tyra Martell APRN.LAMINATION 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 documented in this encounterC[facility]07-[facility]-2024 Telephone encounter Note * Telephone Encounter - Pat White RN - 12/11/2023 2:06 PM EDT Patient calling for appointment for bumps on left side and mid scrotum that he noticed 3 days ago. He says they started draining yesterday, blood tinged yellowish drainage. He says he has no pain, fever, scrotal redness or swelling. He states he had these once in the past and was treated with antibiotic. Reviewed triage protocol guidelines. Disposition: See PCP within 24 hours. Appointment scheduled for 12/11. Pat White RN Reason for Disposition Looks infected (e.g., draining sore, ulcer, rash is painful to touch) Answer Assessment - Initial Assessment Questions 1. SYMPTOM: couple of sore spots on scrotum that are draining yellowish drainage 2. LOCATION: left side and mid scotum 3. ONSET: 3 days ago 4. PAIN: mild pain yesterday 5. URINE: No difficult urination 6. CAUSE: some type of pimple 7. OTHER SYMPTOMS: Denies fever, abdominal pain, blood in urine Protocols used: Penis and Scrotum [id number] [facility]07-22-[facility] Miscellaneous Notes* Telephone Encounter - Pat White RN - 12/11/2023 2:06 PM EDT Patient calling for appointment for bumps on left side and mid scrotum that he noticed 3 days ago. He says they started draining yesterday, blood tinged yellowish drainage. He says he has no pain, fever, scrotal redness or swelling. He states he had these once in the past and was treated with antibiotic. Reviewed triage protocol guidelines. Disposition: See PCP within 24 hours. Appointment scheduled for 12/11. Pat White RN Reason for Disposition Looks infected (e.g., draining sore, ulcer, rash is painful to touch) Answer Assessment - Initial Assessment Questions 1. SYMPTOM: couple of sore spots on scrotum that are draining yellowish drainage 2. LOCATION: left side and mid scotum 3. ONSET: 3 days ago 4. PAIN: mild pain yesterday 5. URINE: No difficult urination 6. CAUSE: some type of pimple 7. OTHER SYMPTOMS: Denies fever, abdominal pain, blood in urine Protocols used: Penis and Scrotum [id number] documented in this encounterC[facility]07-16-2024 History of Present illness Narrative* Roger Brown RT(R) - 12/05/2023 11:30 AM EDT RADIOLOGY SERVICE PROGRESS NOTE SERVICE DATE: 12/05/2023 SERVICE TIME: 11:02 AM PATIENT IDENTITY VERIFICATION COMPLETED USING TWO (2) STANDARD IDENTIFIERS: Name and Date of confirmed by patient verbally FALL SCREENING: Has the patient had 2 falls in the last year or 1 fall with injury or currently using an Ambulatory Assistive Device (Walker, Cane, Wheelchair, Crutches, etc.)? Yes, Patient High Riskfor Falls What interventions were put in place to prevent falls during this visit? Increased Observations by Caregivers PATIENT GENDER DATA: .male ALLERGIES: NA MEDICATIONS REVIEWED: Not applicable PATIENT RELEVANT IMPLANT DATA REVIEWED: Not Applicable PATIENT PRESENTS WITH AN IMPLANTABLE OR ATTACHED CONVEYOR TECHNICIAN: No CREATININE: Creatinine Date Value Ref Range Status 08/29/2023 0.90 0.73 - 1.22 mg/dL Final 10/05/2022 0.98 0.73 - 1.22 mg/dL Final 03/15/2022 0.80 0.73 - 1.22 mg/dL Final Estimated Glomerular Filtration Rate Date Value Ref Range Status 08/29/2023 94 >=60 mL/min/1.73m Final Comment: Estimated Glomerular Filtration Rate (eGFR) is calculated using the 2020 CKD-EPI creatinine equation. This equation utilizes serum creatinine, sex, and age as parameters. The creatinine assay has traceable calibration to isotope dilution- mass spectrometry. Refer to KDIGO guidelines for clinical interpretation. In patients with unstable renal function, e.g. those with acute kidney injury, the eGFRmay not accurately reflect actual GFR. eGFR- Date Value Ref Range Status 06/10/2021 >60 Final P.O.C.T. RESULTS: N/A December 05, [address] PERFORMED: No IV SITE: Ambulatory: A peripheral IV was started in the Left antecubital site with a Angio cath: 22gauge. POST EXAM PIV STATUS: Discontinued PROCEDURE TYPE: NM INJECT: PET/CT BODY SCAN. 20 mCi F18 FDG. No other medications given.. ADMINISTRATION TIME: 1054 PATIENT DISCHARGED TO: Ambulatory patient, left [place] department area. A Diagnostic radioactive procedure has taken place, with no further precautions necessary other than routine body substance precautions. More information regarding radiation safety can be found usingthis link: [email or web address] SIGNATURE: RT Kiran(Yessi) PATIENT NAME: Abdirizak Colindres DATE: December 05, 2023 TIME: 11:02 AM PAGER/CONTACT #: documented in this encounterC[facility]06-24-2024 Telephone encounter Note * Telephone Encounter - Casey Hernandez PA-C - 11/13/2023 4:59 PM EDT Wonderful. Casey Hernandez PA-C [facility] Miscellaneous Notes* Telephone Encounter - Casey Hernandez PA-C - 11/13/2023 4:59 PM EDT Wonderful. M Marty Hernandez, PA-C * Telephone Encounter - Aileen Boyd OCCA - 11/13/2023 2:02 PM EDT TC to patient who is informed of below. Patient requesting message be sent to Lilli Hernandez informing him that patient stopped smoking 3 weeks ago . PAYAL Roman * Telephone Encounter - Tyra Martell APRN.CNS - 11/13/2023 1:49 PM EDT Please let patient know that his stress test was normal. No areas of his heart that were lacking blood flow. Good news. Heart function good and strong. documented in this encounterC[facility]06-[facility]-2024 Telephone encounter Note * Telephone Encounter - Aileen Boyd OCCA - 11/13/2023 2:02 PM EDT TC to patient who is informed of below. Patient requesting message be sent to Lilli Hernandez informing him that patient stopped smoking 3 weeks ago . PAYAL Roman [facility] Telephone encounter Note* Telephone Encounter - Tyra Martell APRN.CNS - 11/13/2023 1:49 PM EDT Please let patient know that his stress test was normal. No areas of his heart that were lacking blood flow. Good news. Heart function good and strong. [facility] History of Present illness Narrative* Neisha Lewis, RT(R) - 11/13/2023 7:00 AM EDT RADIOLOGY SERVICE PROGRESS NOTE SERVICE DATE: 11/13/2023 SERVICE TIME: 07:10 AM PATIENT IDENTITY VERIFICATION COMPLETED USING TWO (2) STANDARD IDENTIFIERS: Name and Date of confirmed by patient verbally FALL SCREENING: Has the patient had 2 falls in the last year or 1 fall with injury or currently using an Ambulatory Assistive Device (Walker, Cane, Wheelchair, Crutches, etc.)? No PATIENT GENDER DATA: .male ALLERGIES: Reviewed and unchanged MEDICATIONS REVIEWED: No PATIENT RELEVANT IMPLANT DATA REVIEWED: Not Applicable PATIENT PRESENTS WITH AN IMPLANTABLE OR ATTACHED CONVEYOR TECHNICIAN: No CREATININE: Creatinine Date Value Ref Range Status 08/29/2023 0.90 0.73 - 1.22 mg/dL Final 10/05/2022 0.98 0.73 - 1.22 mg/dL Final 03/15/2022 0.80 0.73 - 1.22 mg/dL Final Estimated Glomerular Filtration Rate Date Value Ref Range Status 08/29/2023 94 >=60 mL/min/1.73m Final Comment: Estimated Glomerular Filtration Rate (eGFR) is calculated using the 2020 CKD-EPI creatinine equation. This equation utilizes serum creatinine, sex, and age as parameters. The creatinine assay has traceable calibration to isotope dilution- mass spectrometry. Refer to KDIGO guidelines for clinical interpretation. In patients with unstable renal function, e.g. those with acute kidney injury, the eGFRmay not accurately reflect actual GFR. eGFR- Date Value Ref Range Status 06/10/2021 >60 Final P.O.C.T. RESULTS: N/A November 13, [address] PERFORMED: No IV SITE: Ambulatory: A peripheral IV was started in the Left antecubital site with a Angio cath: 22gauge. POST EXAM PIV STATUS: Discontinued PROCEDURE TYPE: NM Stress: 16.1 mCi [id number] was administered IV for Rest Imaging at 07:15 by Neisha Lewis. 50.6 mCi [id number] was administered IV for Stress Imaging at 08:30 by Neisha Lewis. ADMINISTRATION TIME: PATIENT DISCHARGED TO: Ambulatory patient, left [place] department area. A Diagnostic radioactive procedure has taken place, with no further precautions necessary other than routine body substance precautions. More information regarding radiation safety can be found usingthis link: [email or web address]%20Medicine%[email or web address] SIGNATURE: RT Bijal(R) PATIENT NAME: Abdirizak Colindres DATE: November 13, 2023 TIME: 2:22 PM PAGER/CONTACT #: documented in this encounterC[facility]06-[facility]-2024 Telephone encounter Note * Telephone Encounter - Shaina Gomez - 11/10/2023 8:38 AM EDT Prescription Refill Information The patient has been identified by name and date of : Yes Caregiver verified no other encounters exist for this prescription request: Yes Caregiver confirmed with patient/requestor that no other refills are due, in the near future, with this provider at this time: Yes The last office visit in the department: 08-29-23 Does the patient have a future office visit with this provider/department: Yes Requested Prescriptions Pending Prescriptions Disp Refills cyclobenzaprine (FLEXERIL) 10 mg tablet 45 tablet 2 Sig: Take 1 tablet by mouth three times a day as needed for muscle spasm. Shaina Yuan November 10, 2023 8:39 AM [facility] Miscellaneous Notes* Telephone Encounter - Shaina Gomez - 11/10/2023 8:38 AM EDT Prescription Refill Information The patient has been identified by name and date of : Yes Caregiver verified no other encounters exist for this prescription request: Yes Caregiver confirmed with patient/requestor that no other refills are due, in the near future, with this provider at this time: Yes The last office visit in the department: 08-29-23 Does the patient have a future office visit with this provider/department: Yes Requested Prescriptions Pending Prescriptions Disp Refills cyclobenzaprine (FLEXERIL) 10 mg tablet 45 tablet 2 Sig: Take 1 tablet by mouth three times a day as needed for muscle spasm. Shaina Yuan November 10, 2023 8:39 AM documented in this encounterC[facility]06-18-2024 Telephone encounter Note * Telephone Encounter - Erendira Rutledge - 11/07/2023 10:38 AM EDT Pt is scheduled [facility] Miscellaneous Notes* Telephone Encounter - Erendira Rutledge - 11/07/2023 10:38 AM EDT Pt is scheduled * Telephone Encounter - Anitra Mcduffie APRN.CNP - 11/07/2023 9:28 AM EDT Patient returned the phone call and we discussed the findings and recommendations. He agrees with the plan. * Telephone Encounter - Anitra Mcduffie APRN.CNP - 11/06/2023 3:53 PM EDT 3rd attempt Left message for pt to call back regarding results. Anitra Mcduffie APRN.CNP * Telephone Encounter - Anitra Mcduffie APRN.CNP - 11/03/2023 5:09 PM EDT 2nd attempt Left message for pt to call back. Anitra Mcduffie APRN.CNP * Telephone Encounter - Anitra Mcduffie APRN.CNP - 11/02/2023 8:40 AM EDT Images from the original note were not included. Phone call to patient, left message to call back to discuss findings on recent CT abdomen. Pt has RLL lung nodule that had short term follow up recommended. He is scheduled in November. However,on review of images the RLL nodule has increased in size, now extending to the pleural edge. Case was reviewed with Dr. Subhash Cullen and NM PET and updated PFT are recommended. Anitra Mcduffie APRN.KIMBERLY documented in this encounterC[facility]06-18-2024 Telephone encounter Note * Telephone Encounter - Anitra Mcduffie APRN.CNP - 11/07/2023 9:28 AM EDT Patient returned the phone call and we discussed the findings and recommendations. He agrees with the plan. [facility] Miscellaneous Notes* Telephone Encounter - Iris Rawls RN - 11/07/2023 9:24 AM EDT Called the patient and the below instructions reviewed. Iris Rawls RN * Telephone Encounter - Iris Rawls RN - 11/07/2023 8:07 AM EDT You are scheduled for a stress test on 11/13/23. This stress test will appear as 3 appointments on your schedule. You may get multiple reminder calls, but please arrive at the earliest scheduled appointment. Please follow below instructions: *NOTHING BY MOUTH 4 HOURS prior to this test. (you may have sips of water) *NO CAFFEINE FOR 24 HOURS PRIOR TO TESTING (including TEA even decaf, COFFEE- even decaf, CHOCOLATE, CATA- even decaf) *Do NOT take MEDICATIONS CONTAINING CAFFEINE/XANTHINE for 24 HOURS prior to testing: Theophylline, Trental, Excedrin, Anacin, Goody Powders, No Doz, Vivarin, Midol, Diurex, Fiorinal, Fioricet, Esgic (butalbital) *Do NOT take Calcium Channel Blockers 24 HOURS prior to test. *Do NOT take Beta blockers 24 HOURS prior to test UNLESS your doctor tells you otherwise. *Do NOT use the following medications 48 HOURS prior to this test: Viagra(Sildenafil citrate), Cialis(Tadalafil), Vardenafil (Levitra, Stanyx), Avanfil (Stendra). *Do not take any of these meds prior to test unless provider directs you otherwise; Nitroglycerine (ex:Deponit, Nitrostat) Isosorbide (ex:Isordil, Sorbitrate,Imdur,Ismo). Medications on your list you should hold for 24 HOURS: Amlodipine & Labetalol *All other medications may be taken as you normally would. *Guidelines for Diabetics: If you take insulin to control your blood sugar, ask you physician what amount you should take the day of the test. If you take pills to control blood sugar, on the day of the test, do NOT take them until AFTER the test. *FAILURE TO FOLLOW THESE INSTRUCTIONS WILL RESULT IN HAVING TO RESCHEDULE THE TEST. *If you use an inhaler, bring it along with you just in case *THIS TEST MAY TAKE UP TO 3 HOURS TO COMPLETE. Please check in on the first floor at Radiology: [address]; [place] [address] * If you need to cancel or reschedule this test or have any questions regarding this test, please call [phone]. documented in this encounterC[facility]06-18-2024 Telephone encounter Note * Telephone Encounter - Iris Rawls RN - 11/07/2023 9:24 AM EDT Called the patient and the below instructions reviewed. Iris Rawls RN [facility] Telephone encounter Note* Telephone Encounter - Iris Rawls RN - 11/07/2023 8:07 AM EDT You are scheduled for a stress test on 11/13/23. This stress test will appear as 3 appointments on your schedule. You may get multiple reminder calls, but please arrive at the earliest scheduled appointment. Please follow below instructions: *NOTHING BY MOUTH 4 HOURS prior to this test. (you may have sips of water) *NO CAFFEINE FOR 24 HOURS PRIOR TO TESTING (including TEA even decaf, COFFEE- even decaf, CHOCOLATE, CATA- even decaf) *Do NOT take MEDICATIONS CONTAINING CAFFEINE/XANTHINE for 24 HOURS prior to testing: Theophylline, Trental, Excedrin, Anacin, Goody Powders, No Doz, Vivarin, Midol, Diurex, Fiorinal, Fioricet, Esgic (butalbital) *Do NOT take Calcium Channel Blockers 24 HOURS prior to test. *Do NOT take Beta blockers 24 HOURS prior to test UNLESS your doctor tells you otherwise. *Do NOT use the following medications 48 HOURS prior to this test: Viagra(Sildenafil citrate), Cialis(Tadalafil), Vardenafil (Levitra, Stanyx), Avanfil (Stendra). *Do not take any of these meds prior to test unless provider directs you otherwise; Nitroglycerine (ex:Deponit, Nitrostat) Isosorbide (ex:Isordil, Sorbitrate,Imdur,Ismo). Medications on your list you should hold for 24 HOURS: Amlodipine & Labetalol *All other medications may be taken as you normally would. *Guidelines for Diabetics: If you take insulin to control your blood sugar, ask you physician what amount you should take the day of the test. If you take pills to control blood sugar, on the day of the test, do NOT take them until AFTER the test. *FAILURE TO FOLLOW THESE INSTRUCTIONS WILL RESULT IN HAVING TO RESCHEDULE THE TEST. *If you use an inhaler, bring it along with you just in case *THIS TEST MAY TAKE UP TO 3 HOURS TO COMPLETE. Please check in on the first floor at Radiology: [address]; [place] [address] * If you need to cancel or reschedule this test or have any questions regarding this test, please call [phone]. [facility]06-17-2024 Telephone encounter Note* Telephone Encounter - Anitra Mcduffie APRN.CNP - 11/06/2023 3:53 PM EDT 3rd attempt Left message for pt to call back regarding results. Anitra Mcduffie APRN.CNP [facility]06-14-2024 Telephone encounter Note* Telephone Encounter - Anitra Mcduffie APRN.CNP - 11/03/2023 5:09 PM EDT 2nd attempt Left message for pt to call back. Anitra Mcduffie APRN.CNP [facility]06-13-2024 Telephone encounter Note* Telephone Encounter - Anitra Mcduffie APRN.CNP - 11/02/2023 8:40 AM EDT Images from the original note were not included. Phone call to patient, left message to call back to discuss findings on recent CT abdomen. Pt has RLL lung nodule that had short term follow up recommended. He is scheduled in November. However,on review of images the RLL nodule has increased in size, now extending to the pleural edge. Case was reviewed with Dr. Subhash Cullen and [facility] PET and updated PFT are recommended. Anitra Mcduffie APRN.CNP [facility]06-10-2024 Miscellaneous Notes* Telephone Encounter - Jaja Peters - 10/30/2023 3:22 PM EDT Prescription Refill Information The patient has been identified by name and date of : Yes Caregiver verified no other encounters exist for this prescription request: Yes Caregiver confirmed with patient/requestor that no other refills are due, in the near future, with this provider at this time: Yes The last office visit in the department: 08/29/23 Does the patient have a future office visit with this provider/department: Yes 02/29/24 Requested Prescriptions Pending Prescriptions Disp Refills varenicline (CHANTIX) 1 mg tablet 60 tablet 1 Sig: Take 1 tablet by mouth two times a day. Per Patient, his Pharmacy told him he has no refills, although, we are showing one more refill. Jaja Yuan October 30, 2023 3:22 PM ' documented in this encounterC[facility] Telephone encounter Note * Telephone Encounter - Jaja Peters - 10/30/2023 3:22 PM EDT Prescription Refill Information The patient has been identified by name and date of : Yes Caregiver verified no other encounters exist for this prescription request: Yes Caregiver confirmed with patient/requestor that no other refills are due, in the near future, with this provider at this time: Yes The last office visit in the department: 08/29/23 Does the patient have a future office visit with this provider/department: Yes 02/29/24 Requested Prescriptions Pending Prescriptions Disp Refills varenicline (CHANTIX) 1 mg tablet 60 tablet 1 Sig: Take 1 tablet by mouth two times a day. Per Patient, his Pharmacy told him he has no refills, although, we are showing one more refill. Jaja Yuan October 30, 2023 3:22 PM ' [facility]06-10-2024 Telephone encounter Note* Telephone Encounter - Desirae Padgett MA - 10/30/2023 2:18 PM EDT Patient was made aware of the results. Patient verbalizes understanding. Please help pt set up MRI Desirae Padgett Ma [facility]06-10-2024 Miscellaneous Notes* Telephone Encounter - Desirae Padgett MA - 10/30/2023 2:18 PM EDT Patient was made aware of the results. Patient verbalizes understanding. Please help pt set up MRI Desirae Padgtet Ma * Telephone Encounter - Tyra Martell APRN.CNS - 10/30/2023 11:27 AM EDT Please let patient know that CT showed: 1. No abdominal aortic aneurysm. 2. Moderate hepatic steatosis. Please avoid alcohol and nonsteroidal anti- inflammatories. Remember to follow diet low in saturated fat. Nonspecific 2.1 cm lesion of the liver which is not adequately evaluated without contrast. May be acyst or nodule. Need further imaging to see it better. Would advise further evaluation with an MRI of the liver with and without contrast at this time. There isalso a mildly enlarged lymph node which is nonspecific but could be reactive in nature. Meaning that it may be related to infection or inflammation. This can be evaluated at the time of the MRI of the liver. We need a renal panel drawn (blood check to see what kidney function is for MRI) at the end of October and will get the MRIof the liver to further evaluate. 3. Limited evaluation of the lower chest again demonstrates right lower lobe pulmonary nodules. He already has a CT with low dose contrast ordered November 26. documented in this encounterC[facility] Telephone encounter Note * Telephone Encounter - Tyra Martell APRN.CNS - 10/30/2023 11:27 AM EDT Please let patient know that CT showed: 1. No abdominal aortic aneurysm. 2. Moderate hepatic steatosis. Please avoid alcohol and nonsteroidal anti- inflammatories. Remember to follow diet low in saturated fat. Nonspecific 2.1 cm lesion of the liver which is not adequately evaluated without contrast. May be acyst or nodule. Need further imaging to see it better. Would advise further evaluation with an MRI of the liver with and without contrast at this time. There isalso a mildly enlarged lymph node which is nonspecific but could be reactive in nature. Meaning that it may be related to infection or inflammation. This can be evaluated at the time of the MRI of the liver. We need a renal panel drawn (blood check to see what kidney function is for MRI) at the end of October and will get the MRIof the liver to further evaluate. 3. Limited evaluation of the lower chest again demonstrates right lower lobe pulmonary nodules. He already has a CT with low dose contrast ordered November 26. [facility]06-04-2024 History of Present illness Narrative* Jerilyn Gudino RT(R) - 10/24/2023 10:20 AM EDT Radiology Service Progress Note PATIENT NAME: Abdirizak Colindres DATE OF SERVICE: October 24, 2023 TIME: 12:22 PM PATIENT IDENTITY VERIFICATION COMPLETED USING TWO (2) IDENTIFIERS: Name and Date of confirmedby patient verbally. FALL SCREENING: Has the patient had 2 falls in the last year or 1 fall with injury or currently using an Ambulatory Assistive Device (Walker, Cane, Wheelchair, Crutches, etc.)? No PATIENT GENDER DATA: Male PATIENT RELEVANT IMPLANT DATA REVIEWED: Yes PATIENT PRESENTS WITH AN IMPLANTABLE OR ATTACHED CONVEYOR TECHNICIAN: No RADIOLOGY DEPARTMENT: CT; Exam(s) Completed: Abdomen/Pelvis PERIPHERAL IV DATA: Not applicable SIGNED BY: RT Marbin(R) October 24, 2023 12:22 PM documented in this encounterC[facility]05-[facility] Telephone encounter Note * Telephone Encounter - Jennifer Ferreira - 10/10/2023 10:55 AM EDT Patient has been identified by name and date of : Yes, Provider David Patient phones for refill(s): Requested Prescriptions Pending Prescriptions Disp Refills amLODIPine (NORVASC) 5 mg tablet 90 tablet 1 Sig: Take 1 tablet by mouth once daily. Date of last office visit in primary care: 08/29/2023 Date of next office visit in primary care: 02/29/2024 Please advise. Thank you. Jennifer Yuan. [facility]05-21-2024 Miscellaneous Notes* Telephone Encounter - Jennifer Ferreira - 10/10/2023 10:55 AM EDT Patient has been identified by name and date of : Yes, Provider David Patient phones for refill(s): Requested Prescriptions Pending Prescriptions Disp Refills amLODIPine (NORVASC) 5 mg tablet 90 tablet 1 Sig: Take 1 tablet by mouth once daily. Date of last office visit in primary care: 08/29/2023 Date of next office visit in primary care: 02/29/2024 Please advise. Thank you. Jennifer Yuan. documented in this encounterC[facility]05[facility] History of Present illness Narrative* Marty Saravia DO - 09/29/2023 9:43 AM EDT Images from the original note were not included. [facility] OUTPATIENT VISIT DATE September 29, 2023 PRIMARY CARE PHYSICIAN: Casey Hernandez [address] [place] [address] HISTORY OF PRESENT ILLNESS: Mr. Colindres is a 68 year old male. The patient presents for evaluation treatment options secondary to coronary calcification seen on the CAT scan as well as dyspnea of moderate to severe degree with mild to moderate exertion. His symptoms for started a few months ago. They have somewhat progressed. He denies chest discomfort, orthopnea, paroxysmal nocturnal dyspnea, palpitations, near- syncope or syncope. The patient is lives at home with his who accompanies him today. They have grown children and grandchildren. 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 He is a current smoker trying to quit. He is a social drinker. Cardiac risk factors: Age, gender, hypertension, hyperlipidemia, diabetes, tobacco abuse, probable CAD due to coronary calcification seen on CT scanning. Impression: 1. Coronary calcification seen on CT scanning suggest at least mild CAD 2. Dyspnea on exertion rule out anginal equivalent 3. Hypertension 4. Hyperlipidemia 5. Obstructive sleep apnea compliant to CPAP mask 6. Tobaccoism trying to quit. 7. History of diabetes PLAN AND RECOMMENDATIONS: The patient has dyspnea with coronary calcification for which we will should rule out ischemic heart disease. We discussed various therapeutic options including invasive assessment and have decided in a shared medical decision making fashion to proceed with his previously scheduled nuclear stress test. In the interim we discussed dietary and lifestyle modification to facilitate risk factor reduction and improvement in weight and health. We also discussed absolute tobacco cessation and made suggestions to try to help him quit completely. In the interim we have titrated his Zocor for a target LDL of less than 70. He will go Zocor 40 mg at bedtime. Will follow-up with him in a month's time regardless for repeat evaluation and to review testing. Should he continue to be symptomatic, we may need to consider invasive assessment. Vitals: BP 126/70 Pulse 84 Ht 175.3 cm (5' 9) Wt 132 kg (291 lb) SpO2 96% BMI 42.97 kg/m Physical Exam Vitals reviewed. Constitutional: General: He is not in acute distress. Appearance: Normal appearance. He is well-developed. He is not diaphoretic. HENT: Head: Normocephalic and atraumatic. Right Ear: External ear normal. Left Ear: External ear normal. Nose: Nose normal. Eyes: General: No scleral icterus. Right eye: No discharge. Left eye: No discharge. Pupils: Pupils are equal, round, and reactive to light. Neck: Thyroid: No thyromegaly. Vascular: No carotid bruit or JVD. Cardiovascular: Rate and Rhythm: Normal rate and regular rhythm. Heart sounds: No murmur heard. No friction rub. No gallop. Pulmonary: Effort: Pulmonary effort is normal. No respiratory distress. Breath sounds: Normal breath sounds. No wheezing or rales. Abdominal: General: Bowel sounds are normal. Palpations: Abdomen is soft. Musculoskeletal: General: Normal range of motion. Cervical back: Neck supple. Skin: General: Skin is warm and dry. Capillary Refill: Capillary refill takes less than 2 seconds. Coloration: Skin is not pale. Neurological: Mental Status: He is alert and oriented to person, place, and time. Cranial Nerves: No cranial nerve deficit. Psychiatric: Mood and Affect: Mood normal. Mood is not anxious or depressed. Behavior: Behavior normal. Thought Content: Thought content normal. Judgment: Judgment normal. Review of Systems Constitutional: Negative for activity change, appetite change, fatigue and unexpected weight change. HENT: Negative for ear pain and trouble swallowing. Eyes: Negative for pain and visual disturbance. Respiratory: Negative for chest tightness and shortness of breath. Cardiovascular: Negative for chest pain, palpitations and leg swelling. Gastrointestinal: Negative for abdominal pain and blood in stool. Endocrine: Negative for cold intolerance and heat intolerance. Genitourinary: Negative for dysuria, hematuria and scrotal swelling. Musculoskeletal: Negative for arthralgias and myalgias. Skin: Negative for pallor and rash. Allergic/Immunologic: Negative for immunocompromised state. Neurological: Negative for dizziness, syncope and light-headedness. Hematological: Negative for adenopathy. Does not bruise/bleed easily. Psychiatric/Behavioral: Negative for sleep disturbance. The patient is not nervous/anxious. PAST MEDICAL HISTORY Diagnosis Date Adjustment disorder with depressed mood Degeneration of intervertebral disc, site unspecified GERD (gastroesophageal reflux disease) Hiatal hernia Hyperlipidemia, mixed 10/24/2017 Hypertension Major depressive disorder, recurrent episode (HCC) 04/07/2005 Tobacco use disorder 07/15/2008 PAST SURGICAL HISTORY Procedure Laterality Date ARTHROSCOPY KNEE DIAGNOSTIC W/WO SYNOVIAL BX SPX 1999 Arthroscopy, knee right ARTHROSCOPY KNEE DIAGNOSTIC W/WO SYNOVIAL BX SPX 2007 Arthroscopy, knee left ARTHRP KNE CONDYLE&PLATU MEDIAL&LAT COMPARTMENTS Apr [address] [facility] Knowles. Rt ARTHRP KNE CONDYLE&PLATU MEDIAL&LAT COMPARTMENTS Apr [address] [facility] [address] Strauss - left knee OPTX ANKLE DISLOCATION W/REPAIR/INT/XTRNL FIXJ ORIF Ankle left PAST SURGICAL HISTORY OF 2007 ORIF left forearm fracture Social History Tobacco Use Smoking status: Every Day Packs/day: 0.75 Years: 51.00 Additional pack years: 0.00 Total pack years: 38.25 Types: Cigarettes Smokeless tobacco: Never Tobacco comments: smoking 1/2 pack a day now 03/21/2023 Vaping Use Vaping Use: current everyday user Substance Use Topics Alcohol use: Yes Alcohol/week: 26.0 standard drinks of alcohol Types: 20 Cans of Beer (12oz), 6 Shots of liquor per week Comment: 2 Drug use: No Comment: past history [place] in the 70's FAMILY HISTORY Problem Relation Age of Onset Cancer Mother Throat Diabetes Father ALLERGIES No Known Allergies CURRENT MEDICATIONS: sertraline (ZOLOFT) 100 mg tablet Take 1 tablet by mouth once daily. albuterol HFA (VENTOLIN HFA) 90 mcg/actuation inhaler Inhale 2 Puffs as instructed every 4 hours asneeded for wheezing/shortness of breath. labetalol (TRANDATE) 200 mg tablet Take 1 tablet by mouth two times a day. buPROPion (WELLBUTRIN) 75 mg tablet Take 1 tablet by mouth two times a day. simvastatin (ZOCOR) 20 mg tablet Take 1 tablet by mouth daily at bedtime. varenicline (CHANTIX) 1 mg tablet Take 0.5 tablets by mouth once daily for 3 days, THEN 0.5 tabletstwo times a day for 4 days, THEN 1 tablet two times a day for 23 days. varenicline (CHANTIX) 1 mg tablet Take 1 tablet by mouth two times a day. Patient should start on September 28, 2023. metFORMIN (GLUCOPHAGE) 1,000 mg tablet Take 1 tablet by mouth daily with breakfast. cyclobenzaprine (FLEXERIL) 10 mg tablet Take 1 tablet by mouth three times a day as needed for muscle spasm. amLODIPine (NORVASC) 5 mg tablet Take 1 tablet by mouth once daily. CPAP Initiate Auto PAP @ 5-20 cm of water with humidification. Mask (per patient preference) optional chin strap (if indicated) , filters, tubing, humidifier and lifetime supplies. Blood Pressure Test Kit-Medium kit 1 Kit once daily. Omeprazole Magnesium 20 mg tablet Take 20 mg by mouth once daily. naltrexone 50 mg tablet Take 1 tablet by mouth once daily. mometasone-formoterol (DULERA) 200-5 mcg/actuation inhaler Inhale 1 Puff as instructed twice daily.(Patient not taking: Reported on 08/29/2023) salmeterol (SEREVENT DISKUS) 50 mcg/dose diskus inhaler Inhale 1 Puff as instructed twice daily. (Patient not taking: Reported on 08/29/2023) beclomethasone (QVAR REDIHALER) 80 mcg/actuation inhaler Inhale 2 Puffs as instructed twice daily. (Patient not taking: Reported on 08/29/2023) Marty Saravia DO, FAC, FAC Ssis Etl Developer, [facility] Ambulatory Cardiology Ssis Etl Developer, [facility] Cardiac Rehabilitation Ssis Etl Developer, [facility] Cardiac Rehabilitation Ssis Etl Developer, [facility] Congestive [facility] Failure Clinic Ssis Etl Developer, [facility] Ambulatory Cardiology Clinical Retail Pharmacist Profressor of Medicine, [facility] Staff [employer] Technician, Cezar Garcia Department of Cardiovascular Medicine/[facility], [facility] Please note: This note has been produced using speech recognition software and may contain errors related to that system including jesús, punctuation, spelling, words, gender and phrases that may be inappropriate. documented in this encounterC[facility]04-30-2024 Telephone encounter Note * Telephone Encounter - Desirae Padgett MA - 09/19/2023 4:45 PM EDT Patient notified of results. He did not get the ct of abd/pel done. Needs scheduled Desirae Padgett MA September 19, 2023 4:46 PM [facility]04-30-2024 Miscellaneous Notes* Telephone Encounter - Desirae Padgett MA - 09/19/2023 4:45 PM EDT Patient notified of results. He did not get the ct of abd/pel done. Needs scheduled Desiare Padgett MA September 19, 2023 4:46 PM * Telephone Encounter - Tyra Martell APRN.CNS - 09/19/2023 4:24 PM EDT Please let pt. Know that CT of chest showed a slight increase in size of pulmonary nodule. They recommended continued watching. I am alerting the lung cancer screening team to these results and asking them to continue following. CT of abdomen and pelvis is not read yet. Also noted was plaque in coronary arteries but not able to determine severity. Please proceed with stress test. documented in this encounterC[facility]04-30-2024 Telephone encounter Note * Telephone Encounter - Tyra Martell APRN.CNS - 09/19/2023 4:24 PM EDT Please let pt. Know that CT of chest showed a slight increase in size of pulmonary nodule. They recommended continued watching. I am alerting the lung cancer screening team to these results and asking them to continue following. CT of abdomen and pelvis is not read yet. Also noted was plaque in coronary arteries but not able to determine severity. Please proceed with stress test. [facility]04-26-2024 Telephone encounter Note* Telephone Encounter - Dorothy Stephenson MA - 09/15/2023 8:18 AM EDT Spoke to patient who is willing to do CT abdomen when he does another CT chest screening Dorothy Stephenson MA [facility]04-26-2024 Miscellaneous Notes* Telephone Encounter - Dorothy Stephenson MA - 09/15/2023 8:18 AM EDT Spoke to patient who is willing to do CT abdomen when he does another CT chest screening Dorothy Stephenson MA * Telephone Encounter - Tyra Martell APRN.CNS - 09/15/2023 8:00 AM EDT Please let patient know that the ultrasound of the aorta screening for aneurysm was not successful.They were not able to visualize much of the aorta. What they did see did not have any aneurysm. Hischest was evaluated for aneurysm with the CT scan. We were not able to see his abdomen. We could certainly add on a CT without contrast to his next chest CT to follow- up on screening if you would like. documented in this encounterCleveland [facility]04-26-2024 Telephone encounter Note * Telephone Encounter - Tyra Martell APRN.CNS - 09/15/2023 8:00 AM EDT Please let patient know that the ultrasound of the aorta screening for aneurysm was not successful.They were not able to visualize much of the aorta. What they did see did not have any aneurysm. Hischest was evaluated for aneurysm with the CT scan. We were not able to see his abdomen. We could certainly add on a CT without contrast to his next chest CT to follow- up on screening if you would like. [facility]04-25-2024 History of Present illness Narrative* Zulma Hargrove RDMS - 09/14/2023 7:00 AM EDT Radiology Service Progress Note PATIENT NAME: Abdirizak Colindres DATE OF SERVICE: September 14, 2023 TIME: 7:40 AM PATIENT IDENTITY VERIFICATION COMPLETED USING TWO (2) IDENTIFIERS: Name and Date of confirmedby patient verbally. FALL SCREENING: Has the patient had 2 falls in the last year or 1 fall with injury or currently using an Ambulatory Assistive Device (Walker, Cane, Wheelchair, Crutches, etc.)? No PATIENT GENDER DATA: Male PATIENT RELEVANT IMPLANT DATA REVIEWED: Not Applicable PATIENT PRESENTS WITH AN IMPLANTABLE OR ATTACHED CONVEYOR TECHNICIAN: No RADIOLOGY DEPARTMENT: Ultrasound PERIPHERAL IV DATA: Not applicable SIGNED BY: Zulma Hargrove RDMS September 14, 2023 7:40 AM documented in this encounterCleveland [facility]04-11-2024 Miscellaneous Notes* Telephone Encounter - Desirae Padgett MA - 08/31/2023 11:38 AM EDT Patient was made aware of the results. Patient verbalizes understanding. Desirae Padgett Ma * Telephone Encounter - Tyra Martell APRN.CNS - 08/31/2023 10:34 AM EDT Please let patient know that his PSA for his prostate was normal, thyroid normal, hemoglobin A1c reflects diabetes is well-controlled, liver functions okay, kidney function normal, blood counts are normal with differential improving. His cholesterol level was too high with an LDL of 121. Remember to take the simvastatin at bedtime.Triglycerides and good cholesterol were okay. Will await stress test. documented in this encounterCleveland [facility]04-09-2024 Instructions* Patient Instructions* Tyra Martell APRN.CNS - 08/29/2023 9:50 AM EDT 1) Labs today 2) ECG today 3) Get stress test 4) Get ultrasound aorta 5) Get CT scheduled 6) Chantix follow instruction 7) Naltrexone ordered, check with pharmacy 8) Follow up in 6 months documented in this encounterCleveland [facility]04-[facility] History of Present illness Narrative* Tyra Martell APRN.CNS - 08/29/2023 9:05 AM EDT This is a 68 year old male who presents today with: Patient presents with: 6 Month Exam HISTORY OF PRESENT ILLNESS: Abdirizak Colindres is a 68 year old male. Patient presents with: 6 Month Exam SHAH with walking in to appt. Concerned about his ETOH consumption- would like the naltrexone reordered Needs CT reordered, order Chest pressure- with exertion, no radiation of discomfort, described as tightness Lower back pain Wants to quit tobacco *Would like to consider Inspira* Wears CPAP nightly REVIEW OF SYSTEMS GENERAL: No weight loss, malaise or fevers/chills HEENT: Negative for frequent or significant headaches, No changes in hearing or vision. NECK: Negative for lumps, goiter, pain and significant neck swelling RESPIRATORY: Negative for cough, hemoptysis, some wheezing, + dyspnea or shortness of breath CARDIOVASCULAR: Typical heaviness with exertion- chest pain, always leg swelling, + orthopnea, occ.palpitations GI: No nausea, vomiting, or diarrhea/constipation. No hematochezia/melena. No heartburn or reflux symptoms. : No history of dysuria, frequency or incontinence MUSCULOSKELETAL: Negative for joint pain or swelling. SKIN: Negative for lesions, rash, and itching ENDOCRINE: Negative for cold or heat intolerance, polyuria, polydipsia and goiter NEURO: No history of headaches, syncope, paralysis, seizures or tremors MOOD: Negative for depression, anxiety, or suicidal ideation. PAST MEDICAL HISTORY: PAST MEDICAL HISTORY Diagnosis Date Adjustment disorder with depressed mood Degeneration of intervertebral disc, site unspecified GERD (gastroesophageal reflux disease) Hiatal hernia Hyperlipidemia, mixed 10/24/2017 Hypertension Major depressive disorder, recurrent episode (HCC) 04/07/2005 Tobacco use disorder 07/15/2008 PAST SURGICAL HISTORY Procedure Laterality Date ARTHROSCOPY KNEE DIAGNOSTIC W/WO SYNOVIAL BX SPX 1999 Arthroscopy, knee right ARTHROSCOPY KNEE DIAGNOSTIC W/WO SYNOVIAL BX SPX 2007 Arthroscopy, knee left ARTHRP KNE CONDYLE&PLATU MEDIAL&LAT COMPARTMENTS Apr [address] [facility]. [address] Knowles. Rt ARTHRP KNE CONDYLE&PLATU MEDIAL&LAT COMPARTMENTS Apr [address] [facility] [address] Strauss - left knee OPTX ANKLE DISLOCATION W/REPAIR/INT/XTRNL FIXJ ORIF Ankle left PAST SURGICAL HISTORY OF 2007 ORIF left forearm fracture ALLERGIES Patient has no known allergies. MEDICATIONS Current Outpatient Medications Medication Sig metFORMIN (GLUCOPHAGE) 1,000 mg tablet Take 1 tablet by mouth daily with breakfast. cyclobenzaprine (FLEXERIL) 10 mg tablet Take 1 tablet by mouth three times a day as needed for muscle spasm. amLODIPine (NORVASC) 5 mg tablet Take 1 tablet by mouth once daily. sertraline (ZOLOFT) 100 mg tablet Take 1 tablet by mouth once daily. labetalol (TRANDATE) 200 mg tablet Take 1 tablet by mouth two times a day. albuterol HFA (VENTOLIN HFA) 90 mcg/actuation inhaler Inhale 2 Puffs as instructed every 4 hours asneeded for wheezing/shortness of breath. buPROPion (WELLBUTRIN) 75 mg tablet Take 1 tablet by mouth two times a day. simvastatin (ZOCOR) 20 mg tablet Take 1 tablet by mouth daily at bedtime. Omeprazole Magnesium 20 mg tablet Take 20 mg by mouth once daily. mometasone-formoterol (DULERA) 200-5 mcg/actuation inhaler Inhale 1 Puff as instructed twice daily.(Patient not taking: Reported on 08/29/2023) salmeterol (SEREVENT DISKUS) 50 mcg/dose diskus inhaler Inhale 1 Puff as instructed twice daily. (Patient not taking: Reported on 08/29/2023) beclomethasone (QVAR REDIHALER) 80 mcg/actuation inhaler Inhale 2 Puffs as instructed twice daily. (Patient not taking: Reported on 08/29/2023) CPAP Initiate Auto PAP @ 5-20 cm of water with humidification. Mask (per patient preference) optional chin strap (if indicated) , filters, tubing, humidifier and lifetime supplies. Blood Pressure Test Kit-Medium kit 1 Kit once daily. No current facility-administered medications for this visit. FAMILY HISTORY Problem Relation Age of Onset Cancer Mother Throat Diabetes Father Social History Tobacco Use Smoking status: Every Day Packs/day: 0.75 Years: 51.00 Additional pack years: 0.00 Total pack years: 38.25 Types: Cigarettes Smokeless tobacco: Never Tobacco comments: smoking 1/2 pack a day now 03/21/2023 Vaping Use Vaping Use: current everyday user Substance Use Topics Alcohol use: Yes Alcohol/week: 26.0 standard drinks of alcohol Types: 20 Cans of Beer (12oz), 6 Shots of liquor per week Comment: 2 Drug use: No Comment: past history [place] in the 70's EXAM: BP 122/64 Pulse 82 Resp 18 Wt 130.6 kg (288 lb) SpO2 95% BMI 42.53 kg/m PHYSICAL EXAM: General Appearance: Well appearing, alert, in no acute distress, well-hydrated, well nourished. andObese. Skin: Skin color, texture, turgor normal, no suspicious rashes or lesions, a little dusky. Head: normocephalic. Eyes: Anicteric sclera. Pupils are equally round and reactive to light. Extraocular movements are intact. . Ears: External ears normal, canals clear. Oropharynx: Lips, mucosa, and tongue normal, teeth and gums normal, oropharynx normal. Neck: Very thick, full neck. Lungs: very diminished CHAMP, poor air exchange throughout. Heart: Heart sounds distant. S1S2, trace lower ext. edema Abdomen: Normal abdominal exam, Abdomen soft, non-tender. Bowel sounds normal. No masses, organomegaly. Musculoskeletal: No joint swelling, deformity, or tenderness. Peripheral Pulses: D.P. & P.T. dimished 1+ lauren LABS: pending ASSESSMENT/PLAN: 1. Mild episode of recurrent major depressive disorder (HCC) - ICD9: 296.31, ICD10: F33.0 ongoing - SERTRALINE 100 MG TABLET 2. Alcohol dependence with uncomplicated intoxication (HCC) - ICD9: 303.00, ICD10: F10.220 ongoing - SERTRALINE 100 MG TABLET - Naltrexone 50mg daily 3. Hyperlipidemia, mixed - ICD9: 272.2, ICD10: E78.2 - Controlled - Counseled on healthy diet and regular exercise - SIMVASTATIN 20 MG TABLET 4. Hypertension, essential - ICD9: 401.9, ICD10: I10 (primary diagnosis) - Controlled - Recommend home blood pressure monitoring, to bring results to next visit - Encouraged sodium restriction, DASH or Mediterranean diet - Recommend regular aerobic exercise - LABETALOL 200 MG TABLET - COMP METABOLIC PANEL 5. Tobacco abuse - ICD9: 305.1, ICD10: Z72.0 - Cessation encouraged. - Physiologic and physical aspects of tobacco addiction as well as strategies for quitting were discussed. - Counseling was given focusing on the harmful effects of this addiction especially given the patient's medical condition(s) which will be worsened because of the chemicals in tobacco. - VARENICLINE 1 MG TABLET - VARENICLINE 1 MG TABLET - CT CHEST WO IVCON - US SCREENING FOR AAA - CBC + DIFF - ECG COMPLETE 6. Alcohol misuser in household - ICD9: V49.89, ICD10: Z91.89 Ongoing - NALTREXONE 50 MG TABLET - ECG COMPLETE 7. Pulmonary nodule - ICD9: 793.11, ICD10: R91.1 Needs follow up - CT CHEST WO IVCON - CBC + DIFF 8. Class 3 severe obesity due to excess calories with serious comorbidity in adult, unspecified BMI(HCC) - ICD9: 278.01, ICD10: E66.01 Weight increasing - Continue current medications - HGB A1C - TSH BLD 9. Screening for prostate cancer - ICD9: V76.44, ICD10: Z12.5 - Counseled on healthy diet and regular exercise - PSA/PROSTSPECAG SCRN 10. SHAH (dyspnea on exertion) - ICD9: 786.09, ICD10: R06.09 Concerning for COPD & ASHD seen on CT - ECG COMPLETE - Get stress test 11. Abnormal lung sounds- CHAMP - Get CT of chest (reordered since pending) Discussed treatment plan and patient voices understanding. Patient's questions answered appropriately. Medications and potential side effects were discussed and patient voices understanding. Return to the office as scheduled or as needed for worsening/no improvement. EKG notes normal sinus rhythm. No ST elevation. Tyra Martell APRN.SOLE TACKER The patient indicates understanding of these issues and agrees with the plan. documented in this encounterC[facility] Miscellaneous Notes* Telephone Encounter - Casey Hilton RN - 06/15/2023 9:17 AM EST Phoned pt and given provider's message below with verbalized understanding. Pt reports his insurance will not cover the injection, he has already tried this through [facility]. Reports he called [facility], [facility], and [facility] in [place]- none of them had it-it's on back order. Reports he will try calling [facility], and let pcp know. * Telephone Encounter - Casey Hernandez PA-C - 06/13/2023 5:59 PM EST As previously discussed, I would recommend he go to [facility] for intake and have monthly injections. There is no substitute for oral naltrexone. Thanks, Paul Hernandez PA-C * Telephone Encounter - Rose Wynn LPN - 06/13/2023 1:07 PM EST Patient calling the Naltrexone 50 mg is on manufacture back order, no pharmacy in the area has it at all. Patient said he called all of the pharmacies. Patient said he has not had any for 20 days andhe is drinking again. Patient told me in the past 3 days he has drank one pint of scotch and 3 tallboys. Patient [facility], patient said not sure what Paul Hernandez wants to put him on now? Please advise documented in this encounterC[facility]11-28-2023 Telephone encounter Note * Telephone Encounter - Lisa Almaguer - 04/18/2023 9:32 AM EST 05/19/2023 COLON GOTTLIEB PATIENT DENIED SOONER PROCEDURE DATES [facility] Miscellaneous Notes* Telephone Encounter - Lisa Almaguer - 04/18/2023 9:32 AM EST 05/19/2023 COLON GOTTLIEB PATIENT DENIED SOONER PROCEDURE DATES documented in this encounterCleveland [facility]11-28-2023 Instructions* Patient Instructions* Trisha Malcolm MD - 04/18/2023 9:02 AM EST Images from the original note were not included. Bowel Preparation Instructions for: Golytely, Nulytely, Trilyte or Colyte (polyethylene glycol 3350and electrolytes) IF YOU DO NOT FOLLOW THESE DIRECTIONS, YOUR COLONOSCOPY WILL BE CANCELLED. Ramsay Instructions: Your bowel must be empty so that your doctor can clearly view your colon. Follow all of the instructions in this handout EXACTLY as they are written. Do NOT eat any solid food the ENTIRE day before your colonoscopy. Drink only clear liquids. Buy your bowel preparation at least 5 days before your colonoscopy. TRANSPORTATION on the Day of Your Exam A responsible person MUST be present with you at Check In prior to your colonoscopy and REMAIN in the endoscopy area until you are discharged. You are NOT ALLOWED to drive, take a taxi or bus, or leave the Endoscopy Center ALONE. If you do not have a responsible bulk truck driver (family member or friend) with you to take you home, your exam cannot be done with sedation and will be cancelled. Please bring a list of all of your current medications, including any Over-the Counter medications with you. Medications If you take insulin, diabetic medications or blood thinners such as Coumadin (warfarin), Plavix (clopidogrel), Ticlid (ticlopidine hydrochloride), Agrylin (anagrelide), Xarelto (Rivaroxaban), Pradaxa(Dabigatran), Eliquis (Apixaban), and Effient (Prasugrel). You MUST call the doctors who orders those medicines for instructions on altering the dosage before your colonoscopy. All other medications should be taken the day of the exam with a sip of water including ASPIRIN. Five (5) Days Before Your Colonoscopy Do NOT take medicines that stop diarrhea - such as Imodium, Kaopectate, or Pepto Bismol. Do NOT take fiber supplements - such as Metamucil, Citrucel, or Perdiem. Do NOT take products that contain iron - such as multi-vitamins (the label lists what is in the products). Do NOT take Vitamin E. Buy the prescription bowel preparation solution at your local pharmacy or drugstore pharmacy. 04/2019 Bowel Preparation Instructions for: Golytely, Nulytely, Trilyte or Colyte (polyethylene glycol 3350and electrolytes) Three (3) Days Before Your Colonoscopy Do NOT eat high-fiber foods - such as popcorn, beans, seeds (flax, sunflower, quinoa), multigrain bread, nuts, salad/vegetables, or fresh and dried fruit. One (1) Day Before Your Colonoscopy Only drink clear liquids the ENTIRE DAY before your colonoscopy. Do NOT eat any solid foods. Drink at least 8 ounces of clear liquids every hour after waking up. The clear liquids you can drink include: Clear Liquid (NO RED LIQUIDS) DO NOT DRINK Gatorade, Pedialyte or Powerade Clear broth or bouillon Coffee or tea (no milk or non-dairy creamer) Carbonated and non-carbonated soft drinks Selvin-Aid or other fruit flavored drinks Strained fruit juices (no pulp) Jell-O, popsicles, hard candy Water Alcohol Milk or non-dairy creamers Noodles or vegetables in soup Juice with pulp Liquid you cannot see through Do not use tobacco/vaping products The bowel preparation solution will be consumed in two parts. Mix the solution the evening before your colonoscopy and refrigerate before drinking. You may add the flavor pack that came with the bowel preparation. Do NOT add ice, sugar or any other flavorings to the solution. Part 1 At 6:00 PM - Evening before your colonoscopy Drink an 8-oz glass of bowel preparation every 10 minutes for a total of 8 glasses. You may continue to drink clear liquids until midnight. Part 2 On the day of your colonoscopy you may drink clear liquids up to (three) 3 hours before your procedure. 4 1/2 hours before your colonoscopy Drink an 8-oz glass of bowel preparation every 10 minutes for a total of 8 glasses. Fifteen (15) minutes later, drink an 8-oz glass of clear liquids every 15 minutes for a total of 2 glasses. You may continue to drink clear liquids up to (three) 3 hours before your exam. 2 04/2019 documented in this encounterC[facility]11-28-2023 History of Present illness Narrative* Trisha Malcolm MD - 04/18/2023 9:01 AM EST HISTORY AND PHYSICAL Abdirizak Ellis Bernadine 1955 REFERRING PHYSICIAN: No ref. provider found CHIEF COMPLAINT: Consult (Positive FOBT) HPI: The patient is a 68 year old male referred for endoscopy. Abdirizak is found to be Cologard positive. He has had no prior colonoscopy. The FOBT was done on 03/13/23. He notes no family history of colon cancer He denies noting any blood in his stools. He denies chronic abdominal pain He states that he would note up to 2 days with no bowel movement, but not uncomfortable with this. He notes shortness of breath exertion. He smokes cigarettes. PAST MEDICAL HISTORY Diagnosis Date Adjustment disorder with depressed mood Degeneration of intervertebral disc, site unspecified GERD (gastroesophageal reflux disease) Hiatal hernia Hyperlipidemia, mixed 10/24/2017 Hypertension Major depressive disorder, recurrent episode (HCC) 04/07/2005 Tobacco use disorder 07/15/2008 PAST SURGICAL HISTORY Procedure Laterality Date ARTHROSCOPY KNEE DIAGNOSTIC W/WO SYNOVIAL BX SPX 1999 Arthroscopy, knee right ARTHROSCOPY KNEE DIAGNOSTIC W/WO SYNOVIAL BX SPX 2007 Arthroscopy, knee left ARTHRP KNE CONDYLE&PLATU MEDIAL&LAT COMPARTMENTS Apr 2012 [facility] Knowles. Rt ARTHRP KNE CONDYLE&PLATU MEDIAL&LAT COMPARTMENTS Apr [address] [facility] [address] Strauss - left knee OPTX ANKLE DISLOCATION W/REPAIR/INT/XTRNL FIXJ ORIF Ankle left PAST SURGICAL HISTORY OF 2007 ORIF left forearm fracture Current Outpatient Medications Medication Sig amLODIPine (NORVASC) 5 mg tablet Take 1 tablet by mouth once daily. sertraline (ZOLOFT) 100 mg tablet Take 1 tablet by mouth once daily. labetalol (TRANDATE) 200 mg tablet Take 1 tablet by mouth two times a day. albuterol HFA (VENTOLIN HFA) 90 mcg/actuation inhaler Inhale 2 Puffs as instructed every 4 hours asneeded for wheezing/shortness of breath. buPROPion (WELLBUTRIN) 75 mg tablet Take 1 tablet by mouth two times a day. naltrexone 50 mg tablet Take 1 tablet by mouth every afternoon. cyclobenzaprine (FLEXERIL) 10 mg tablet Take 1 tablet by mouth three times daily as needed for muscle spasm. metFORMIN (GLUCOPHAGE) 1,000 mg tablet Take 1 tablet by mouth daily with breakfast. mometasone-formoterol (DULERA) 200-5 mcg/actuation inhaler Inhale 1 Puff as instructed twice daily. simvastatin (ZOCOR) 20 mg tablet Take 1 tablet by mouth daily at bedtime. salmeterol (SEREVENT DISKUS) 50 mcg/dose diskus inhaler Inhale 1 Puff as instructed twice daily. beclomethasone (QVAR REDIHALER) 80 mcg/actuation inhaler Inhale 2 Puffs as instructed twice daily. CPAP Initiate Auto PAP @ 5-20 cm of water with humidification. Mask (per patient preference) optional chin strap (if indicated) , filters, tubing, humidifier and lifetime supplies. Blood Pressure Test Kit-Medium kit 1 Kit once daily. Omeprazole Magnesium 20 mg tablet Take 20 mg by mouth once daily. peg 3350-Electrolytes (GOLYTELY) 236-22.74-6.74 -5.86 gram suspension Take 4,000 mL by mouth one time only for 1 dose. Refer to printed prep instructions from your provider. No current facility-administered medications for this visit. ALLERGIES: Patient has no known allergies. PERSONAL HISTORY: Social History Tobacco Use Smoking status: Every Day Packs/day: 0.75 Years: 51.00 Additional pack years: 0.00 Total pack years: 38.25 Types: Cigarettes Smokeless tobacco: Never Tobacco comments: smoking 1/2 pack a day now 03/21/2023 Vaping Use Vaping Use: current everyday user Substance Use Topics Alcohol use: Yes Alcohol/week: 26.0 standard drinks of alcohol Types: 20 Cans of Beer (12oz), 6 Shots of liquor per week Comment: 2 Drug use: No Comment: past history [place] in the 70's FAMILY HISTORY Problem Relation Age of Onset Cancer Mother Throat Diabetes Father The review of systems data was entered by the nurse and reviewed by ny Nursing Notes: Denice Li RN 04/18/2023 8:48 AM Signed REVIEW OF SYSTEMS: General: The patient denies fatigue, denies weight loss, denies weight gain, denies feeling hot, and denies feelings of cold. Eyes: The patient denies glaucoma, denies eye injury/surgery, does not wear glasses or contacts. Ear/Nose/Throat: The patient denies allergies, denies hayfever, denies ear infections, and denies bloody noses. Cardiovascular: The patient denies chest pain, denies heart disease, NOTES high blood pressure,denies cardiac stent, denies prior heart attack, denies irregular heart beat, NOTES high cholesterol, denies poor circulation, denies heart failure, other cardiac issues, denies claudication, denies cold feet, denies peripheral arterial stent. Respiratory: The patient denies tuberculosis, denies pneumonia, denies frequent cough, denies pulmonary embolism, NOTES shortness of breath, and denies coughing up blood. Gastrointestinal: The patient denies difficulty swallowing, NOTES acid reflux, denies ulcers, denies vomiting, denies jaundice/hepatitis, denies gallbladder problems, denies black or tarry stools, denies hemorrhoids, denies bleeding from rectum, denies diverticulitis, denies constipation, denies diarrhea, denies loss of stool control, and denies hernias. Kidney/Bladder: The patient denies kidney stones, denies urine infections, and denies bloody urine. Skin: The patient denies a history of skin cancer, denies bleeding/changing moles, and denies a history of skin rash. Neurologic: The patient denies a history of epilepsy/convulsions, denies headaches, denies head/spinal injuries, and denies stroke/TIA. Psychiatric: The patient denies psychiatric medications, denies depression, and denies voices, denies substance abuse. Endocrine: The patient denies thyroid disorders, NOTES diabetes, and denies hormonal problems. Hematologic: The patient denies a history of bruising, denies bleeding, and denies anemia, NOTES blood clots. Infections: The patient denies a history of measles and mumps, denies rheumatic fever, and denies sexually transmitted diseases. Musculoskeletal: The patient denies back pain/injury, NOTES back problems, denies sciatica, denies knee/foot trouble, denies arthritis, or denies gout. When was patient's last Mammogram screening? N/A Last Colonoscopy: never Denice Li RN PHYSICAL EXAMINATION: General: The patient is 68 year old male, well nourished, well hydrated in no acute distress. The patient is oriented to time, place, and person. VITALS: Blood pressure 124/82, pulse 91, temperature 36.4 C (97.6 F), height 175.3 cm (5' 9), weight 132.2 kg (291 lb 6.4 oz), SpO2 96 %. Body mass index is 43.03 kg/m . Head: Normal cephalic, atraumatic Eyes: pupils are equally round, sclera are clear/anicteric Neck is supple with no tracheal deviation Cardiac; normal heart sound, regular rate Respiratory: distant breath sounds, normal respiratory excursion and pattern. Abdominal exam: benign Extremities: no clubbing, cyanosis or edema. Neuro: non focal Psych: normal mood Assessment IMPRESSION: Cologard positive PLAN: I have discussed the above with the patient. I have offered colonoscopy, possible biopsies I have explained the procedure to the patient. I have counseled the patient as to the risks of the procedure, including but not limited to: infection, bleeding, injury to any intrabdominal organs such as liver/spleen, perforation of the GI tract,inability to complete the procedure, complications of anesthesia, etc. - the patient understands. The patient wishes to proceed. I have answered all questions to the patient s satisfaction and the patient has no further questions. My clinic staff has educated the patient as to the colon cleansing regimen and I have prescribed Golytely for the colon cleansing solution. The patient will be scheduled for the procedure at [facility]. Diagnoses: (R19.5) Fecal occult blood test positive (primary encounter diagnosis) I have confirmed and edited as necessary, the PFSH and ROS obtained by others. Consultation requested by Paul Hernandez for an opinion regarding patient's Cologard positive. My final recommendations will be communicated back to the requesting physician by way of shared Medical record or letter to requesting physician via US mail. Medical Decision Making: Problems: Low: Stable chronic illness Risk: Low: Low risk from testing/treatment Medical Decision Making Level: 3 - Low Trisha Malcolm MD documented in this encounterC[facility]11-28-[facility]23 Nurse Note* Denice Li RN - 04/18/2023 8:45 AM EST REVIEW OF SYSTEMS: General: The patient denies fatigue, denies weight loss, denies weight gain, denies feeling hot, and denies feelings of cold. Eyes: The patient denies glaucoma, denies eye injury/surgery, does not wear glasses or contacts. Ear/Nose/Throat: The patient denies allergies, denies hayfever, denies ear infections, and denies bloody noses. Cardiovascular: The patient denies chest pain, denies heart disease, NOTES high blood pressure,denies cardiac stent, denies prior heart attack, denies irregular heart beat, NOTES high cholesterol, denies poor circulation, denies heart failure, other cardiac issues, denies claudication, denies cold feet, denies peripheral arterial stent. Respiratory: The patient denies tuberculosis, denies pneumonia, denies frequent cough, denies pulmonary embolism, NOTES shortness of breath, and denies coughing up blood. Gastrointestinal: The patient denies difficulty swallowing, NOTES acid reflux, denies ulcers, denies vomiting, denies jaundice/hepatitis, denies gallbladder problems, denies black or tarry stools, denies hemorrhoids, denies bleeding from rectum, denies diverticulitis, denies constipation, denies diarrhea, denies loss of stool control, and denies hernias. Kidney/Bladder: The patient denies kidney stones, denies urine infections, and denies bloody urine. Skin: The patient denies a history of skin cancer, denies bleeding/changing moles, and denies a history of skin rash. Neurologic: The patient denies a history of epilepsy/convulsions, denies headaches, denies head/spinal injuries, and denies stroke/TIA. Psychiatric: The patient denies psychiatric medications, denies depression, and denies voices, denies substance abuse. Endocrine: The patient denies thyroid disorders, NOTES diabetes, and denies hormonal problems. Hematologic: The patient denies a history of bruising, denies bleeding, and denies anemia, NOTES blood clots. Infections: The patient denies a history of measles and mumps, denies rheumatic fever, and denies sexually transmitted diseases. Musculoskeletal: The patient denies back pain/injury, NOTES back problems, denies sciatica, denies knee/foot trouble, denies arthritis, or denies gout. When was patient's last Mammogram screening? N/A Last Colonoscopy: never Denice Li, JEIMY documented in this encounterC[facility]11-22-2023 Miscellaneous Notes* Telephone Encounter - Tarik Shaina Yuan Casey - 04/12/2023 12:44 PM EST Pharmacy verified in [facility] Patient has been identified by name and date of : Yes Patient aware RX will be sent to pharmacy. No need to notify patient. Patient phones for refill(s): Requested Prescriptions Pending Prescriptions Disp Refills amLODIPine (NORVASC) 5 mg tablet 90 tablet 1 Sig: Take 1 tablet by mouth once daily. sertraline (ZOLOFT) 100 mg tablet 30 tablet 5 Sig: Take 1 tablet by mouth once daily. Date of last office visit : 02/23/2023 Date of next office visit : 08/25/2023 Last 2 Encounter Wt Readings: Date: Wt: 03/21/2023 130.2 kg (287 lb) 02/23/2023 130.6 kg (288 lb) Not applicable Please advise. Shaina Yuan documented in this encounterCleveland [facility]11-01-2023 Miscellaneous Notes* Telephone Encounter - Geovanny Chan LPN - 03/22/2023 11:49 AM EDT Pt notified of same. Pt was assisted in transfer to schedule consult to general surgery. Geovanny Chan LPN * Telephone Encounter - Casey Hernandez PA-C - 03/22/2023 10:04 AM EDT Please let hm know Cologard is positive. Recommend colonoscopy for screening. Telephone on 03/22/23 CONSULT TO GENERAL SURGERY Paul Castillo PA-C documented in this encounterCleveland Clinic Mentor [facility] Instructions* Patient Instructions* Aintra Mcduffie APRN.LAMINATION 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 - 03/21/2023 11:16 AM EDT SMOKING CESSATION EDUCATION Why do I need to know about the health risks of cigarette smoking? Cigarette smoking is the most preventable cause of illness and . Cigarettes are filled with nicotine, which acts like a poison in your body. What are the health risks of cigarette smoking? You may have breathing problems that make it difficult for you to do daily activities or play sports. You have a higher risk of bone fractures because smoking can cause osteoporosis (brittle bones). If you fall asleep with a lit cigarette, you can start a fire. Cigarette smoking can also cause the following health problems: Cancer: Heart and blood vessel disease: The nicotine in tobacco causes an increase in your heart rate and blood pressure. Nicotine also causes your blood vessels to narrow. This can lead to blood clots in your heart or brain and cause a heart attack or stroke. Cigarette smoke has carbon monoxide init. This can decrease the amount of oxygen flowing to your heart and other organs. Lung disease: The chemicals in cigarette smoke can damage your lungs. This causes a buildup of dirtand waste products in your lungs. Many people who smoke have a long-term cough as a result. Cigarette smoking may also cause long-term lung infections or diseases, such as asthma, emphysema, or chronic bronchitis. You are also at higher risk for respiratory illnesses, such as colds or pneumonia. Gastrointestinal disease: Cigarette smoking increases the amount of acid in your stomach. This can cause an ulcer or gastric reflux. Women and smoking: You have a higher risk of heart and blood vessel disease if you smoke and take control pills. The risk is more serious is you are 35 years or older. Why should I quit smoking? Your health will improve and your risks for many diseases will decrease.Your breath, clothes, and hair will no longer smell like smoke. Tobacco will no longer stain your teeth. Tobacco smoke is dangerous to others. If you quit, you will decrease the risks to those aroundyou, such as your children or family members. Where can I go for support and more information? There are many ways to quit smoking. Some may workbetter for you than others. Your caregiver can help you find the best plan to quit. Smokefree.gov Web Address: www.smokefree.gov Phone: [place] Web Address: www.lung.org [address] [place] [address] Elly. Miranda , [place] Phone: Phone: [facility] Smoking Cessation Program CT Lung Screen Results The CT scan that you will have done will show if you have any nodules (small spots) in your lungs that are suspicious for cancer. Around 90% of the patients who have this scan done are found to have at least one nodule. Most nodules are benign (not cancer) and of no harm to you at all. A specialistwill make a scientific evaluation about whether or not a nodule is worrisome based on its size and shape. The radiologist who will read your scan will put it into one of four categories: LUNG-RADS Category Description Overall Probability of Malignancy Recommended Follow-Up 1 Negative No nodules and definitely benign (non-cancerous nodules) Essentially 0. 1 Year - Follow-up Low dose CT 2 Benign Appearance or Behavior Nodules with a very low likelihood of becoming cancer due to size or lack of growth Less than 1% 1 Year - Follow-up Low dose CT 3 Probably Benign Probably benign finding, short term follow-up recommended 1 to 2% 6 Months - Follow-up CT 4 A,B,or X Suspicious Findings for which additional diagnostic testing and/or biopsy is recommended Will be calculated based on nodule characteristics. Dependent on what is seen on the exam. [address], PET, Biopsy At times, we may see something outside of the lungs on the scan that could be a health concern. Below are some of the most common findings: S Clinically Significant or Potentially Clinically Significant Findings (non lung cancer) Referral or additional imaging/labs depending on result. Approximately 10% of people receive this result. Coronary Artery Calcifications (Moderate or Severe) - Referral to cardiology or PCP for further work-up and recommendations. Thyroid Nodule - TSH level and Thyroid Ultrasound dependent on size, referral to endocrinology. Adrenal Nodule - Blood work and referral to endocrinology. Others Lung Cancer Screening hotline: 100.310.2816 Lung Cancer Screening [phone] Billing Questions: or [email or web address] Lung Cancer Screening Team: Coreen Murillo CNP; Becki Murray PA-C; Jerilyn Sow CNP; Leatha Holloway CNP, Marjorie Corral PA-C, Rita Hyde PA-C, Anitra Mcduffie, LAMINATION 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 : [phone] documented in this encounterC[facility] History of Present illness Narrative* Anitra McduffieMOIZ.LAMINATION 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 - 03/21/2023 11:07 AM EDT Images from the original note were not included. LUNG SCREENING VISIT PRIMARY CARE PHYSICIAN: Casey Hernandez PA-C PULMONARY PROVIDER: none Results will be communicated via letter or electronic record if applicable. Visit Delivery: In Person Patient Visit Type: New to Screening Current or Ex-smoker? [Current Exam Type: baseline LDCT Number of Pack Years: 38.25 Current smoker (=0) REQUESTER: The referring provider advised the patient to have screening. HISTORY OF PRESENT ILLNESS: Abdirizak Colindres is a 68 year old Active smoker who presents for lung screening. Respiratory symptoms include: SOB: Yes with stairs Chest tightness: No Coughing: No Hemoptysis: No Wheezing: Yes, occasionally Fever/Chills: No Recent Respiratory Infection: No Unintentional weight loss: No Last 6 Encounter Wt Readings: Date: Wt: 03/21/2023 130.2 kg (287 lb) 02/23/2023 130.6 kg (288 lb) 09/13/2022 131.1 kg (289 lb) 08/16/2022 131.5 kg (290 lb) 02/08/2022 129.3 kg (285 lb) 02/01/2022 129.7 kg (286 lb) ECOG PERFORMANCE STATUS: 0- Fully active, able to carry on all pre-disease performance w/o restriction. Modified Medical Research [place] Dyspnea Scale (MMRC) I only get breathless with strenous exercise 0 PAST MEDICAL HISTORY Diagnosis Date Adjustment disorder with depressed mood Degeneration of intervertebral disc, site unspecified GERD (gastroesophageal reflux disease) Hiatal hernia Hyperlipidemia, mixed 10/24/2017 Hypertension Major depressive disorder, recurrent episode (HCC) 04/07/2005 Tobacco use disorder 07/15/2008 PAST SURGICAL HISTORY Procedure Laterality Date ARTHROSCOPY KNEE DIAGNOSTIC W/WO SYNOVIAL BX SPX 1999 Arthroscopy, knee right ARTHROSCOPY KNEE DIAGNOSTIC W/WO SYNOVIAL BX SPX 2007 Arthroscopy, knee left ARTHRP KNE CONDYLE&PLATU MEDIAL&LAT COMPARTMENTS Apr [address] [facility] Knowles. Rt ARTHRP KNE CONDYLE&PLATU MEDIAL&LAT COMPARTMENTS Apr [address] [facility] [address] Strauss - left knee OPTX ANKLE DISLOCATION W/REPAIR/INT/XTRNL FIXJ ORIF Ankle left PAST SURGICAL HISTORY OF 2007 ORIF left forearm fracture FAMILY HISTORY Problem Relation Age of Onset Cancer Mother Throat Diabetes Father buPROPion (WELLBUTRIN) 75 mg tablet Take 1 tablet by mouth two times a day. naltrexone 50 mg tablet Take 1 tablet by mouth every afternoon. cyclobenzaprine (FLEXERIL) 10 mg tablet Take 1 tablet by mouth three times daily as needed for muscle spasm. albuterol HFA (VENTOLIN HFA) 90 mcg/actuation inhaler Inhale 2 Puffs as instructed every 4 hours asneeded for wheezing/shortness of breath. metFORMIN (GLUCOPHAGE) 1,000 mg tablet Take 1 tablet by mouth daily with breakfast. sertraline (ZOLOFT) 100 mg tablet Take 1 tablet by mouth once daily. mometasone-formoterol (DULERA) 200-5 mcg/actuation inhaler Inhale 1 Puff as instructed twice daily. simvastatin (ZOCOR) 20 mg tablet Take 1 tablet by mouth daily at bedtime. salmeterol (SEREVENT DISKUS) 50 mcg/dose diskus inhaler Inhale 1 Puff as instructed twice daily. beclomethasone (QVAR REDIHALER) 80 mcg/actuation inhaler Inhale 2 Puffs as instructed twice daily. amLODIPine (NORVASC) 5 mg tablet Take 1 tablet by mouth once daily. labetalol (TRANDATE) 200 mg tablet Take 1 tablet by mouth twice daily. CPAP Initiate Auto PAP @ 5-20 cm of water with humidification. Mask (per patient preference) optional chin strap (if indicated) , filters, tubing, humidifier and lifetime supplies. Blood Pressure Test Kit-Medium kit 1 Kit once daily. Omeprazole Magnesium 20 mg tablet Take 20 mg by mouth once daily. ALLERGIES No Known Allergies The medications and allergies were reviewed and reconciled for this patient and deemed current. Lung Cancer Risk Factors: 1.Tobacco Use: Start Age 17, Quit Age: N/A, Average packs per day 0.75, Pack Years 38.25 2. Passive Smoke Exposure: Yes, as a Child 3. Personal hx of malignancy: No, Type of Cancer: 4. Significant exposures (1 year or more of exposure): None, 5. Race: White 6. Education: High School Graduate 7. BMI:Body mass index is 43.5 kg/m . Patient-entered Height: 5'8 Patient-entered Weight: 287 pounds 8. COPD: Yes 9. Pneumonia in the past 5 years: No 10. Is there a history of lung cancer in a first degree relative? No 11. Is there a history of lung cancer in a non-first degree relative? No 12. Is there a history of any other cancer in a first degree relative? Yes Health Maintenance Immunization History Administered Date(s) Administered COVID-19 original vaccine, age 12+ yr, monovalent (Beat My Waste Quote - PURPLE TOP) 08/06/2020 08/27/2020 05/28/2021 COVID-19 vaccine, age 12+ yr, bivalent (Beat My Waste Quote) 02/28/2022 pneumococcal (PCV13) vaccine, 13 valent (PREVNAR 13) 09/16/2016 12/10/2018 pneumococcal (PPV23) vaccine, 23 valent (PNEUMOVAX 23) 02/01/2022 tetanus diphtheria (Td) vaccine, age 7+ yr, 5 Lf tetanus, PF (TENIVAC) 08/08/2018 tetanus diphtheria pertussis (Tdap) vaccine, age 7+ yr (ADACEL, BOOSTRIX) 01/30/2006 Colonoscopy: Mammogram: DATA REVIEW I have directly visualized the testing documented:none Prior Imaging: Last CT/CTA Chest/Lungs No resulted procedures found. Last CT Chest - Impression Only No resulted procedures found. Last XR Chest - Impression Only XR CHEST 2V FRONTAL/LAT Exam End: 09/27/2021 10:12 AM (Final result) Impression: IMPRESSION: No acute radiographic abnormality. ... Pulmonary Function Testing: No textual results found for the specified procedure(s). PHYSICAL EXAM: BP 124/72 Pulse 100 Wt 130.2 kg (287 lb) SpO2 96% BMI 43.50 kg/m Deferred ASSESSMENT and RECOMMENDATIONS: 1. Screening for lung cancer: Six year risk for lung cancer: 3.79% [email or web address] I have determined that the patient is eligible for a low dose CT based on age, absence of signs or symptoms of lung cancer, and total pack years: Yes. The patient and I engaged in shared decision making, including the use of one or more decision aids, to include benefits, harms, follow-up diagnostic testing, over-diagnosis, false positive rate, andtotal radiation exposure. The patient understands and feels comfortable with it: Yes. The patient was counseled on the importance of adherence to annual LDCT lung cancer screening, impact of comorbidities and ability or willingness to undergo diagnosis and treatment. The patient understands and feels comfortable with it:Yes. 2. Nicotine dependence: The patient was counseled on the importance of smoking cessation if currentsmoker and, if appropriate, offered additional tobacco cessation counseling services - Smoking Cessation Counseling. SMOKING CESSATION COUNSELING Smoking cessation methods including Behavior Modification were discussed with the patient and assistance offered. Pt is on Wellbutrin for alcohol. The medical conditions adversely affected by cigarette use include:COPD, Emphysema, and Lung Cancer. The patient is currently not ready to quit. Pt states he has no interest in cutting back more than 1/2 PPD. I personally spent 3 minutes in counseling. The time spent in smoking cessation counseling is exclusive of any other counseling during this visit. Anitra Mcduffie APRN.CNP NPI #: March 21, 2023 11:11 AM documented in this encounterC[facility] Miscellaneous Notes* Telephone Encounter - Tarik Shaina Yuan Casey - 03/20/2023 12:25 PM EDT Pharmacy verified in [facility] Patient has been identified by name and date of : Yes Patient aware RX will be sent to pharmacy. No need to notify patient. Patient phones for refill(s): Requested Prescriptions Pending Prescriptions Disp Refills albuterol HFA (VENTOLIN HFA) 90 mcg/actuation inhaler 1 Each 3 Sig: Inhale 2 Puffs as instructed every 4 hours as needed for wheezing/shortness of breath. Date of last office visit : 02/23/2023 Date of next office visit : 08/25/2023 Last 2 Encounter Wt Readings: Date: Wt: 02/23/2023 130.6 kg (288 lb) 09/13/2022 131.1 kg (289 lb) Not applicable Please advise. Shaina Montanez Pss documented in this encounterC[facility] History of Present illness Narrative* Casey Hernandez PA-C - 02/23/2023 8:40 AM EDT 67 year old male with c/o here for physical and problem review. Didn't complete outstanding lab Hypertension, essential (primary encounter diagnosis) Current meds: Labetolol 200mg daily Amlodipine 5mg daily Patient is compliant with meds Yes Monitors bp at home: No. If yes, readings: Denies side effects: No. Chest pain: No. Dyspnea: No. Edema: ankles. Palpitations: No. Syncope: No. Headache: No. Dizziness: No. Last 3 Encounter BP Readings: Date: BP: 02/23/2023 122/68 09/13/2022 132/76 08/16/2022 136/72 Last 2 Encounter Wt Readings: Date: Wt: 02/23/2023 130.6 kg (288 lb) 09/13/2022 131.1 kg (289 lb) Hyperlipidemia, mixed Current medication Simvastatin 20mg daily HS Taking medication consistently Yes Observing low cholesterol high fiber diet No Muscle aches No Stomach complaints/ diarrhea No. Last 2 Lipids: Component Latest Ref Rng & Units 03/15/2022 10/05/2022 Cholesterol, Total <200 mg/dL 204 (H) 158 Triglyceride <150 mg/dL 109 102 HDL Cholesterol >39 mg/dL 51 39 (L) Non HDL Cholesterol <130 mg/dL 153 (H) 119 Fasting Time hrs 12 12 VLDL Cholesterol <30 mg/dL 22 20 TC:HDL Ratio <5.10 4.00 4.05 LDL Cholesterol <100 mg/dL 131 (H) 99 LDL:HDL Ratio <2.54 2.57 (H) 2.54 (H) Prediabetes Current medications: Metformin 1000mg daily with breakfast Hemoglobin A1C (%) Date Value 10/05/2022 6.3 03/15/2022 6.3 06/10/2021 6.6 03/03/2021 6.6 ) Major Depressive Disorder, Recurrent Episode (Hcc) Alcohol Dependence With Uncomplicated Intoxication (Hcc) Current medications: Sertraline 100mg daily Feels mood is generally Less irritability upset that he's drinking again. 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 Discussed Vivitrol as the only option I see as having benefit. He has not been responsible to date to maintain Gerd Without Esophagitis Current medication: Omeprazole 20mg daily OTC. Current symptoms: controlled as long as he takes daily. Last Mg level if on PPI chronically: stable on last three checks. Heartburn is controlled: No. Dysphagia: No. Bloody or black stools: No. Bowel changes: solid, once a day to every other day. No black, tarry or bloody stools. Tobacco Use Disorder Smoking < 1/2 PPD Evening work helping Ddd (Degenerative Disc Disease), Lumbar Chronic Midline Low Back Pain Without Sciatica Backache Current medications: Cyclobenzaprine 10mg Take one(1) tablet three times daily as needed: about every other day 1-2, helps The same: pinching in lower back, irritating if stand prolonged time. Non-radiating. Doing some exercises: leg lifts PAIN JOINT, KNEE: doing well PAIN JOINT, ANKLE: better after surgery, some stiffness Leukocytosis resolved Other Specified Type of Hydrocele Not bothersome Erections are still good. Urine flow is good. Nocturia 0 since started CPAP Chest Pain, Unspecified resolved Hearing Loss in Left Ear Has hearing loss bilaterally, has hearing aides. Overweight Vitals 02/01/2022 02/08/2022 08/16/2022 09/13/2022 02/23/2023 WEIGHT in POUNDS 286 lb 285 lb 290 lb 289 lb 288 lb WEIGHT in KILOGRAMS 129.729 kg 129.275 kg 131.543 kg 131.09 kg 130.636 kg HISTORIES FAMILY HISTORY Problem Relation Age of Onset Cancer Mother Throat Diabetes Father PAST MEDICAL HISTORY Diagnosis Date Adjustment disorder with depressed mood Degeneration of intervertebral disc, site unspecified GERD (gastroesophageal reflux disease) Hiatal hernia Hyperlipidemia, mixed 10/24/2017 Hypertension Major depressive disorder, recurrent episode (HCC) 04/07/2005 Tobacco use disorder 07/15/2008 PAST SURGICAL HISTORY Procedure Laterality Date ARTHROSCOPY KNEE DIAGNOSTIC W/WO SYNOVIAL BX SPX 1999 Arthroscopy, knee right ARTHROSCOPY KNEE DIAGNOSTIC W/WO SYNOVIAL BX SPX 2007 Arthroscopy, knee left ARTHRP KNE CONDYLE&PLATU MEDIAL&LAT COMPARTMENTS Apr 2012 [facility] Knowles. Rt ARTHRP KNE CONDYLE&PLATU MEDIAL&LAT COMPARTMENTS Apr [address] [facility] [address] Strauss - left knee OPTX ANKLE DISLOCATION W/REPAIR/INT/XTRNL FIXJ ORIF Ankle left PAST SURGICAL HISTORY OF 2007 ORIF left forearm fracture Social History Tobacco Use Smoking status: Every Day Packs/day: 1.00 Years: 20.00 Additional pack years: 0.00 Total pack years: 20.00 Types: Cigarettes Smokeless tobacco: Never Tobacco comments: smoking 1/2 pack a day now Substance Use Topics Alcohol use: Yes Alcohol/week: 60.0 standard drinks of alcohol Types: 20 Cans of Beer (12oz), 6 Shots of liquor per week Comment: 2 Drug use: No Comment: past history [place] in the 70's ACTIVE PROBLEM LIST Major Depressive Disorder, Recurrent Episode (Hcc) Backache PAIN JOINT, KNEE PAIN JOINT, ANKLE Leukocytosis Other Specified Type of Hydrocele Sebaceous Cyst PAIN GROIN Chest Pain, Unspecified Tobacco Use Disorder Hearing Loss in Left Ear Overweight Hypertension, Essential Prediabetes Hyperlipidemia, Mixed Gerd Without Esophagitis Ddd (Degenerative Disc Disease), Lumbar Chronic Midline Low Back Pain Without Sciatica Alcohol Dependence With Uncomplicated Intoxication (Hcc) Current Outpatient Medications Medication Sig Dispense Refill cyclobenzaprine (FLEXERIL) 10 mg tablet Take 1 tablet by mouth three times daily as needed for muscle spasm. 45 tablet 2 albuterol HFA (VENTOLIN HFA) 90 mcg/actuation inhaler Inhale 2 Puffs as instructed every 4 hours asneeded for wheezing/shortness of breath. 1 Each 3 metFORMIN (GLUCOPHAGE) 1,000 mg tablet Take 1 tablet by mouth daily with breakfast. 90 tablet 1 sertraline (ZOLOFT) 100 mg tablet Take 1 tablet by mouth once daily. 30 tablet 5 mometasone-formoterol (DULERA) 200-5 mcg/actuation inhaler Inhale 1 Puff as instructed twice daily.1 Each 2 simvastatin (ZOCOR) 20 mg tablet Take 1 tablet by mouth daily at bedtime. 90 tablet 3 salmeterol (SEREVENT DISKUS) 50 mcg/dose diskus inhaler Inhale 1 Puff as instructed twice daily. 5 Each 5 beclomethasone (QVAR REDIHALER) 80 mcg/actuation inhaler Inhale 2 Puffs as instructed twice daily. 1 Each 5 amLODIPine (NORVASC) 5 mg tablet Take 1 tablet by mouth once daily. 90 tablet 1 buPROPion (WELLBUTRIN) 75 mg tablet Take 1 tablet by mouth twice daily. 180 tablet 1 labetalol (TRANDATE) 200 mg tablet Take 1 tablet by mouth twice daily. 180 tablet 1 CPAP Initiate Auto PAP @ 5-20 cm of water with humidification. Mask (per patient preference) optional chin strap (if indicated) , filters, tubing, humidifier and lifetime supplies. 1 Device 0 Blood Pressure Test Kit-Medium kit 1 Kit once daily. 1 Kit 0 Omeprazole Magnesium 20 mg tablet Take 20 mg by mouth once daily. No current facility-administered medications for this visit. Abdominal Aortic Aneurysm Screening Never done BP Controlled (<130/80) Never done Lung Cancer Screening Never done Shingrix Vaccine(1 of 2) Never done Colorectal Cancer Screening due on 09/16/2017 Covid-19 Vaccine(5 - Pfizer series) due on 07/01/2022 Influenza Vaccine(1) due on 01/20/2023 REVIEW OF SYMPTOMS: General: denies fatigue, unusual weight loss or gain, fevers, chills. Energy Level: about 3/4. 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 Caffeine use: 3 cups a day. ETOH use: as above. Marijuana use: 1gm a day smoking. Illicit drug use: none. Eyes: denies change in vision, glaucoma, cataracts. Reading glasses/contacts. Last eye exam: 1 year. EENT: denies recurrent sinus infection, unusual nasal drainage, hoarsemess, sore throat, or recurrent sore in mouth or tongue. Hearing aides Cardiovascular: denies chest pain , SOB, palpitation, irregular or racing heart beats, orthopnea, history of rheumatic fever or prior heart conditions. Mild chronic lower leg pitting edema. Respiratory: denies unusual cough, SOB, wheezing, history of recurrent bronchitis, pneumonia or tuberculosis. Denies day time drowsiness. ROMIE on CPAP: wears nightly with great benefit. GI: see HPI Kidney/Bladder: see HPI. Skin: denies unusual rashes. No history of skin cancer, bleeding/changing moles, or unusual skin lesions. Neurologic: wakes with numb hands at night but can shake it out. Denies recurrent HOPKINS, change in vision, hearing or smell, tremors, unusual weakness, loss of sensation, or difficulty with balance or gait. No history of epilepsy/convulsions, migraine, head/spinal injuries, or stroke/TIA. Psychiatric: see HPI Endocrine: denies unusual thirst, hunger, excessive urination, change in skin or hair texture, emotional lability. No history of thryoid, pituitary or hormonal problems. Hematologic: denies unusual bleeding, bruising, or history of anemia or blood transfusion. Denies hx blood clots. Infections: denies risk factors for HIV, hepatitis or history of unusual infection. Immunizations are up to date. Musculoskeletal: see HPI EXAM: BP 122/68 Pulse 71 Resp 20 Ht 173 cm (5' 8.11) Wt 130.6 kg (288 lb) SpO2 95% BMI 43.65kg/m Pleasant morbidly obese in no acute distress. Alert and oriented all spheres. Normal affect and cognition. Speech normal. No deficits to learning or comprehension. Skin warm, dry, pink to lips and nailbeds. Normal turgor. Respirations regular and unlabored. HEENT: NCAT. No scleral icterus or conjunctival injection. TM's clear. Nose and oropharynx free from injection or lesion. Oral membranes moist and pink. No cervical lymph nodes. Thyroid non-tender, no masses, or enlargement. Carotids pulses 2+/4+ without bruits. No JVD with HOB at 30 degrees. Chest is normal shape. Lungs are clear to all herrera with good air exchange through out. HRRR without murmur or gallop. No lifts, heaves, or rubs. Abdomen: morbidly obese, active bowel sounds throughout, soft, nontender, no masses or organomegaly. No CVAT. Scars. No abdominal bruits, axillary or inguinal nodes. Femoral pulses 2/4+ without bruit. Fluid or telangiectasia. Extrem: no clubbing, cyanosis. 1/4+ pitting edema. Distal pulses 2+/4, prompt capillary refill. Pincer nails, long slightly encurvating nails. Unable to reach feet. Wide base gate, balance insecurity walking and turning. No asterixis. No other focal weakness. ASSESSMENT/PLAN: 1. Encounter for screening for lung cancer - ICD9: V76.0, ICD10: Z12.2 (primary diagnosis) - CONSULT LUNG CANCER SCREENING CLINIC 2. Screening for colon cancer - ICD9: V76.51, ICD10: Z12.11 - COLOGUARD 3. Hypertension, essential - ICD9: 401.9, ICD10: I10 - Controlled - Continue current medications - Recommend home blood pressure monitoring, to bring results to next visit - Encouraged sodium restriction, DASH or Mediterranean diet - Recommend regular aerobic exercise 4. Hyperlipidemia, mixed - ICD9: 272.2, ICD10: E78.2 - Controlled - Continue current medications - Counseled on healthy diet and regular exercise 5. Alcohol dependence with uncomplicated intoxication (HCC) - ICD9: 303.00, ICD10: F10.220 Long discussion. Has been taking drinking regularly. We discussed from my perspective the only reasonable treatment would be Vivitrol injection. Patient refuses to return to [facility], claims charged $700 for a 15 minute visit. Agreed to renew naloxone but recommended he look into other outpatient treatment. Advised per phone to after visit that he need to be completely off alcohol for 3 days before starting naloxone. She will relay message. 6. Prediabetes - ICD9: 790.29, ICD10: R73.03 Stable one medication 7. Incurvated nail - ICD9: 703.8, ICD10: L60.8 - CONSULT TO PODIATRY 8. DDD (degenerative disc disease), lumbar - ICD9: 722.52, ICD10: M51.36 Manages without pain medication 9. Annual physical exam - ICD9: V70.0, ICD10: Z00.00 - Counseled on healthy diet and regular exercise - Discussed need for and benefit of weight loss. BMI 43.65 kg/(m^2) - Colorectal cancer screening recommended - agrees to Cologuard - Lung cancer screening recommended - Smoking cessation encouraged; discussed risks to health and quitting strategies. Patient is contemplative - Counseled on limiting alcohol intake to 2 drinks per day - Depression screening tool completed and reviewed with patient. Based on score and interview, patient is already diagnosed with depression and recommended no further intervention at this time. - Follow up for annual exam in one year Casey Hernandez PA-C documented in this encounterSarah Ville [id number] Miscellaneous Notes* Telephone Encounter - Tiffanie Matthews MSW - 01/30/2023 12:17 PM EDT Patient and Sw spoke regarding [employer] application for symbicort. Patient reports that he has hisportion complete and will bring application in and drop off at [place] office for prescription completion. * Telephone Encounter - Tiffanie Matthews MSW - 01/27/2023 9:55 AM EDT Ava tried call again to patient. No answer. If you hear back from patient, let Sw know. Ava had sent patient [employer] application for symbicorton 12/07/22. Sw never received application back from patient. * Telephone Encounter - Tiffanie Matthews MSW - 01/26/2023 2:56 PM EDT Ava tried call again to patient. Mailbox is full. Will try call another time. * Telephone Encounter - Tiffanie Matthews MSW - 01/26/2023 10:08 AM EDT Ava received message from patient requesting call back to discuss patient assistance for inhaler. See Dr. Boland note 10/26/22. Symbicort has [employer] PAP program. Ava had mailed patient assistance forms to patient home in November. Sw has never received back forms. Ava called patient back. Vmail is full. Ava will try call another time. documented in this encounterC[facility] Miscellaneous Notes* Telephone Encounter - Marilyn Ibrahim - 01/27/2023 2:05 PM EDT GILLES:09-13-22 No appt made. * Telephone Encounter - Jaja Peters - 01/27/2023 1:48 PM EDT Patient has been identified by name and date of : Yes Requested Prescriptions Pending Prescriptions Disp Refills cyclobenzaprine (FLEXERIL) 10 mg tablet 45 tablet 2 Sig: Take 1 tablet by mouth three times daily as needed for muscle spasm. RX INSTRUCTIONS: Patient aware RX will be sent to pharmacy. No need to notify patient. Jaja Yuan documented in this encounterC[facility]07-07-2023 Miscellaneous Notes* Telephone Encounter - Elva Yuan - 11/25/2022 12:19 PM EDT Patient has been identified by name and date of : Yes Requested Prescriptions Pending Prescriptions Disp Refills metFORMIN (GLUCOPHAGE) 1,000 mg tablet 90 tablet 1 Sig: Take 1 tablet by mouth daily with breakfast. GILLES-09/13/22 Labs-10/05/22 NOV-12/13/22 RX INSTRUCTIONS: Patient aware RX will be sent to pharmacy. No need to notify patient. Elva Yuan documented in this encounterC[facility]06-29-2023 Miscellaneous Notes* Telephone Encounter - Penny Kerns LPN - 11/17/2022 3:27 PM EDT If patient calls back will refer back to SW. * Telephone Encounter - LADARIUS Martin - 10/27/2022 9:31 AM EDT Sw called and left message to return Sw call to discuss inhaler PAP info below. * Telephone Encounter - LADARIUS Martin - 10/27/2022 8:12 AM EDT Ava looked up Advair for patient assistance. [employer] no longer has Advair listed on their patient assistance. Sw looked up symbicort and [employer] still has this inhaler listed on their assistance. The inhalerhas 300%FPL income guideline. Sw can speak with patient regarding symbicort PAP. * Telephone Encounter - Jorge Boland MD - 10/26/2022 3:28 PM EDT Would advair or symbicort be an option * Telephone Encounter - LADARIUS Martin - 10/26/2022 2:46 PM EDT Sw went on [employer] PAP website and dulera is no longer available for patient assistance. Another alternative inhaler you would like me to check on for assistance?? * Telephone Encounter - Jorge Boland MD - 10/26/2022 2:03 PM EDT Can we see if there any type of assistance for that. * Telephone Encounter - Mile Munoz LPN - 10/26/2022 2:00 PM EDT Pt states he picked up a dulera inhaler from the pharmacy yesterday, states he can not continue to pay $245 per inhaler. Pt states he will finish this one then will not fill after that. Pt also uses albuterol inhaler, no others. Mile Munoz LPN documented in this encounterC[facility]06-06-2023 Miscellaneous Notes* Telephone Encounter - Desirae Padgett Ma - 10/25/2022 5:12 PM EDT Patient's last visit within dept: 09/13/22 Next appt: 12/13/22 * Telephone Encounter - Mabel Abdul Pss - 10/25/2022 4:58 PM EDT Patient has been identified by name and date of : Yes Last office visit in this department: 09/13/2022 RX INSTRUCTIONS: Patient aware RX will be sent to pharmacy. No need to notify patient. Patient phones requesting refills as follows: Requested Prescriptions Pending Prescriptions Disp Refills mometasone-formoterol (DULERA) 200-5 mcg/actuation inhaler 1 Each 2 Sig: Inhale 1 Puff as instructed twice daily. Please review and advise. Mabel Abdul Pss documented in this encounterC[facility]05-03-2023 Miscellaneous Notes* Telephone Encounter - Dalia Leiva - 09/21/2022 11:54 AM EDT Patient has been identified by name and date of : Yes Requested Prescriptions Pending Prescriptions Disp Refills simvastatin (ZOCOR) 20 mg tablet 90 tablet 3 Sig: Take 1 tablet by mouth daily at bedtime. GILLES-09/13/22 Labs-03/15/22 NOV-12/13/22 med filled 07/20/21 RX INSTRUCTIONS: Patient aware RX will be sent to pharmacy. No need to notify patient. Dalia Leiva documented in this [facility]04-25-2023 Instructions* Patient Instructions* Casey Hernandez PA-C - 09/13/2022 8:42 AM EDT See info on naltrexone. Wean alcohol by halves over the week. Suddenly stopping may trigger DTs. documented in this encounterC[facility]04-25-2023 History of Present illness Narrative* Casey Hernandez PA-C - 09/13/2022 8:00 AM EDT 67 year old male with c/o here for follow up. Alcohol dependence with uncomplicated intoxication (hcc) (primary encounter diagnosis) Mild episode of recurrent major depressive disorder (hcc) Current medications: Sertraline 100mg daily Bupropion 75mg twice a day Naltrexone 50mg Notes a little calmer. Previously drinking a pint of 40 proof vodka and 12oz beer, sometimes more. Marijuana 1/day a day persistent [facility]: likes counselor. Started naltrexone today but hasn't weaned use of ETOH at all. Starting AA meetings Hypertension, essential (primary encounter diagnosis) Current meds: Labetolol 200mg daily Amlodipine 5mg daily Patient is compliant with meds Yes Monitors bp at home: No. If yes, readings: Denies side effects: No. Chest pain: No. Dyspnea: No. Edema: ankles. Palpitations: No. Syncope: No. Headache: No. Dizziness: No. Last 3 Encounter BP Readings: Date: BP: 09/24/2021 144/80 07/22/2021 154/92 07/13/2021 123/76[BP Esteban average[ Last 2 Encounter Wt Readings: Date: Wt: 09/24/2021 129.9 kg (286 lb 6.4 oz) 07/22/2021 130.2 kg (287 lb) Prediabetes Current medications: Metformin 1000mg daily with breakfast Hemoglobin A1C (%) Date Value 03/15/2022 6.3 06/10/2021 6.6 03/03/2021 6.6 ) Hyperlipidemia, mixed Current medication Simvastatin 20mg daily HS Taking medication consistently Yes Observing low cholesterol high fiber diet No Muscle aches No Stomach complaints/ diarrhea No. Last 2 Lipids: Component Latest Ref Rng & Units 03/03/2021 03/15/2022 Cholesterol, Total <200 mg/dL 194 204 (H) Triglyceride <150 mg/dL 138 109 HDL Cholesterol >39 mg/dL 52 51 LDL Cholesterol <100 mg/dL 114 (H) 131 (H) Non HDL Cholesterol <130 mg/dL 142 (H) 153 (H) Fasting Time hrs 12 12 VLDL Cholesterol <30 mg/dL 28 22 TC:HDL Ratio <5.10 3.73 4.00 LDL:HDL Ratio <2.54 2.19 2.57 (H) Gerd without esophagitis Current medication: Omeprazole 20mg AC daily. Current symptoms: none. Last Mg level if on PPI chronically: pending. Heartburn is controlled: Yes. Dysphagia: No. Bloody or black stools: No. Bowel changes: Yes, notes lately urgency and change having BM in evening. Usually very regular daily in th morning. Last EGD and/or colonoscopy: none. Overweight Vitals 02/01/2022 02/08/2022 08/16/2022 09/13/2022 WEIGHT in POUNDS 286 lb 285 lb 290 lb 289 lb Tobacco use disorder Smoking 1/2 PPD, down from 1 PPD SHAH Current medications: Albuterol 90mcg/ actuation 2puffs q4h prn Dulera not covered. 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 Interval history: persistent SHAH, 80 yards and has to stop. Worsening shortness of breath: Yes. Cough: No. Has been congested with coughing jags. Doesn't feel ill. Wheezing: No. Smoking: Yes. Compliant with medications: Yes. Using rescue inhaler: 4 times a day. HISTORIES FAMILY HISTORY Problem Relation Age of Onset Cancer Mother Throat Diabetes Father PAST MEDICAL HISTORY Diagnosis Date Adjustment disorder with depressed mood Degeneration of intervertebral disc, site unspecified GERD (gastroesophageal reflux disease) Hiatal hernia Hyperlipidemia, mixed 10/24/2017 Hypertension Major depressive disorder, recurrent episode (HCC) 04/07/2005 Tobacco use disorder 07/15/2008 PAST SURGICAL HISTORY Procedure Laterality Date ARTHROSCOPY KNEE DIAGNOSTIC W/WO SYNOVIAL BX SPX 1999 Arthroscopy, knee right ARTHROSCOPY KNEE DIAGNOSTIC W/WO SYNOVIAL BX SPX 2007 Arthroscopy, knee left ARTHRP KNE CONDYLE&PLATU MEDIAL&LAT COMPARTMENTS Apr [address] [facility] Knowles. Rt ARTHRP KNE CONDYLE&PLATU MEDIAL&LAT COMPARTMENTS Apr [address] [facility] [address] Strauss - left knee OPTX ANKLE DISLOCATION W/REPAIR/INT/XTRNL FIXJ ORIF Ankle left PAST SURGICAL HISTORY OF 2007 ORIF left forearm fracture Social History Tobacco Use Smoking status: Every Day Packs/day: 1.00 Years: 20.00 Pack years: 20.00 Types: Cigarettes Smokeless tobacco: Never Tobacco comments: smoking 1/2 pack a day now Substance Use Topics Alcohol use: Yes Alcohol/week: 60.0 standard drinks Types: 20 Cans of Beer (12oz), 6 Shots of liquor per week Comment: 2 Drug use: No Comment: past history [place] in the 70's ACTIVE PROBLEM LIST Major Depressive Disorder, Recurrent Episode (Hcc) Backache PAIN JOINT, KNEE PAIN JOINT, ANKLE Leukocytosis Other Specified Type of Hydrocele Sebaceous Cyst PAIN GROIN Chest Pain, Unspecified Tobacco Use Disorder Hearing Loss in Left Ear Overweight Hypertension, Essential Prediabetes Hyperlipidemia, Mixed Gerd Without Esophagitis Ddd (Degenerative Disc Disease), Lumbar Chronic Midline Low Back Pain Without Sciatica Alcohol Dependence With Uncomplicated Intoxication (Hcc) Current Outpatient Medications Medication Sig Dispense Refill albuterol HFA (VENTOLIN HFA) 90 mcg/actuation inhaler Inhale 2 Puffs as instructed every 4 hours asneeded for wheezing/shortness of breath. 1 Each 3 sertraline (ZOLOFT) 100 mg tablet Take 1 tablet by mouth once daily. 30 tablet 5 amLODIPine (NORVASC) 5 mg tablet Take 1 tablet by mouth once daily. 90 tablet 1 buPROPion (WELLBUTRIN) 75 mg tablet Take 1 tablet by mouth twice daily. 180 tablet 1 mometasone-formoterol (DULERA) 200-5 mcg/actuation inhaler Inhale 1 Puff as instructed twice daily.1 Each 2 cyclobenzaprine (FLEXERIL) 10 mg tablet Take 1 tablet by mouth three times daily as needed for muscle spasm. 45 tablet 1 metFORMIN (GLUCOPHAGE) 1,000 mg tablet Take 1 tablet by mouth daily with breakfast. 90 tablet 1 labetalol (TRANDATE) 200 mg tablet Take 1 tablet by mouth twice daily. 180 tablet 1 simvastatin (ZOCOR) 20 mg tablet Take 1 tablet by mouth daily at bedtime. 90 tablet 3 CPAP Initiate Auto PAP @ 5-20 cm of water with humidification. Mask (per patient preference) optional chin strap (if indicated) , filters, tubing, humidifier and lifetime supplies. 1 Device 0 Blood Pressure Test Kit-Medium kit 1 Kit once daily. 1 Kit 0 Omeprazole Magnesium 20 mg tablet Take 20 mg by mouth once daily. Current Facility-Administered Medications Medication Dose Route Frequency Provider Last Rate Last Admin perflutren lipid microspheres 1.3 mL in NaCl (PF) 0.9% 10 mL injection (DEFINITY) INTRAVENOUS DIRECTED PRN Casey Hernandez PA-C sodium chloride 0.9 % (flush) 10 mL (BD POSIFLUSH) 10 mL INTRAVENOUS DIRECTED PRN Casey Hernandez PA-C ABDOMINAL AORTIC ANEURYSM SCREENING Never done BP CONTROLLED (<130/80) Never done LUNG CANCER SCREENING Never done SHINGRIX VACCINE(1 of 2) Never done COLORECTAL CANCER SCREENING due on 09/16/2017 EXAM: BP 132/76 Pulse 72 Resp 16 Wt 131.1 kg (289 lb) SpO2 95% BMI 43.62 kg/m Pleasant obese adult man in no acute distress. Alert and oriented all spheres. Normal affect and cognition. Speech normal. No deficits to learning or comprehension. Skin warm, dry, pink to lips and nailbeds. Normal turgor. Respirations regular and unlabored. HEENT: NCAT. No scleral icterus or conjunctival injection. TM's clear. Nose and oropharynx free from injection or lesion. Oral membranes moist and pink. No cervical lymph nodes. Thyroid non-tender, no masses, or enlargement. Carotids pulses 2+/4+ without bruits. No JVD with HOB at 30 degrees. Chest is normal shape. Lungs are clear to all herrera with good air exchange through out. HRRR without murmur or gallop. No lifts, heaves, or rubs. Extrem: no clubbing or cyanosis. Edema: none. Extremities are warm and pink with prompt capillary refill. ASSESSMENT/PLAN: 1. Alcohol dependence with uncomplicated intoxication (HCC) - ICD9: 303.00, ICD10: F10.220 (primarydiagnosis) In counseling, starting naltrexone. Recommend wean off ETOH by halves each day to avoid withdrawal. 2. Mild episode of recurrent major depressive disorder (HCC) - ICD9: 296.31, ICD10: F33.0 Stable - CBC - COMP METABOLIC PANEL 3. Hypertension, essential - ICD9: 401.9, ICD10: I10 - good control - Continue current medication(s) - Recommended regular aerobic exercise. - Recommend home blood pressure monitoring, to bring results in on next visit - Goal of BP <130/80 - CBC - COMP METABOLIC PANEL 4. Prediabetes - ICD9: 790.29, ICD10: R73.03 Recheck lab - CBC - COMP METABOLIC PANEL - HGB A1C - LIPID PANEL BASIC 5. Hyperlipidemia, mixed - ICD9: 272.2, ICD10: E78.2 - suboptimal control - Continue current medication. - COMP METABOLIC PANEL - LIPID PANEL BASIC 6. GERD without esophagitis - ICD9: 530.81, ICD10: K21.9 - Discussed lifestyle modifications including losing weight, limiting caffeine, no meals three hours before sleep, and head of bed elevation - Continue treatment with Prilosec 20 mg QD OTC - CBC - COMP METABOLIC PANEL 7. Obesity, Class III, BMI 40-49.9 (morbid obesity) (HCC) - ICD9: 278.01, ICD10: E66.01 Stable Will address options for weight loss once he is off ETOH successfully Casey Hernandez PA-C documented in this encounterC[facility]04-03-2023 Miscellaneous Notes* Telephone Encounter - Elva Yuan - 08/22/2022 3:15 PM EDT Patient has been identified by name and date of : Yes Requested Prescriptions Pending Prescriptions Disp Refills albuterol HFA (VENTOLIN HFA) 90 mcg/actuation inhaler 1 Each 3 Sig: Inhale 2 Puffs as instructed every 4 hours as needed for wheezing/shortness of breath. Patient states that he lost his inhaler and needs to get this as soon as possible as he uses it several times a day. GILLES-08/16/22 Labs-03/15/22 NOV-09/13/22 RX INSTRUCTIONS: Patient aware RX will be sent to pharmacy. No need to notify patient. Elva Bob Pss documented in this encounterC[facility]03-28-2023 History of Present illness Narrative* Casey Hernandez PA-C - 08/16/2022 8:40 AM EDT 67 year old male with c/o here for follow up Alcohol dependence with uncomplicated intoxication (hcc) (primary encounter diagnosis) Mild episode of recurrent major depressive disorder (hcc) 08/11/2022 phone call 5:32p-5:47p Called, states I just don't know. Week of shit. Doesn't know if depression medication is working. Can't turn depression off. Not suicidal. Not my happy self Getting to I don't give a shit mood. Could care less what people think. Doesn't Feel like me. Smoke marijuana a couple bowls. Has had 50oz beer so far today. Saw counselor yesterday: told him to call me. Inebriated, slurring words. Repeating same statements. Advised to increase sertraline to 100mg and see next week. seeing counselor Current medications: Sertraline 100mg daily Bupropion 75mg twice a day Notes a little calmer. Drinking a pint of vodka and 12oz beer, sometimes more. Marijuana 1 gm a day Going to AA meeting today. HISTORIES FAMILY HISTORY Problem Relation Age of Onset Cancer Mother Throat Diabetes Father PAST MEDICAL HISTORY Diagnosis Date Adjustment disorder with depressed mood Degeneration of intervertebral disc, site unspecified GERD (gastroesophageal reflux disease) Hiatal hernia Hyperlipidemia, mixed 10/24/2017 Hypertension Major depressive disorder, recurrent episode (HCC) 04/07/2005 Tobacco use disorder 07/15/2008 PAST SURGICAL HISTORY Procedure Laterality Date ARTHROSCOPY KNEE DIAGNOSTIC W/WO SYNOVIAL BX SPX 1999 Arthroscopy, knee right ARTHROSCOPY KNEE DIAGNOSTIC W/WO SYNOVIAL BX SPX 2007 Arthroscopy, knee left ARTHRP KNE CONDYLE&PLATU MEDIAL&LAT COMPARTMENTS Apr 2012 [facility]. [address] Knowles. Rt ARTHRP KNE CONDYLE&PLATU MEDIAL&LAT COMPARTMENTS Apr [address] [facility] [address] Strauss - left knee OPTX ANKLE DISLOCATION W/REPAIR/INT/XTRNL FIXJ ORIF Ankle left PAST SURGICAL HISTORY OF 2007 ORIF left forearm fracture Social History Tobacco Use Smoking status: Every Day Packs/day: 1.00 Years: 20.00 Pack years: 20.00 Types: Cigarettes Smokeless tobacco: Never Tobacco comments: smoking 1/2 pack a day now Substance Use Topics Alcohol use: Yes Alcohol/week: 60.0 standard drinks Types: 20 Cans of Beer (12oz), 6 Shots of liquor per week Comment: 2 Drug use: No Comment: past history [place] in the 70's ACTIVE PROBLEM LIST Major Depressive Disorder, Recurrent Episode (Hcc) Backache PAIN JOINT, KNEE PAIN JOINT, ANKLE Leukocytosis Other Specified Type of Hydrocele Sebaceous Cyst PAIN GROIN Chest Pain, Unspecified Tobacco Use Disorder Hearing Loss in Left Ear Overweight Hypertension, Essential Prediabetes Hyperlipidemia, Mixed Gerd Without Esophagitis Ddd (Degenerative Disc Disease), Lumbar Chronic Midline Low Back Pain Without Sciatica Alcohol Dependence With Uncomplicated Intoxication (Hcc) Current Outpatient Medications Medication Sig Dispense Refill sertraline (ZOLOFT) 100 mg tablet Take 1 tablet by mouth once daily. 30 tablet 5 amLODIPine (NORVASC) 5 mg tablet Take 1 tablet by mouth once daily. 90 tablet 1 buPROPion (WELLBUTRIN) 75 mg tablet Take 1 tablet by mouth twice daily. 180 tablet 1 mometasone-formoterol (DULERA) 200-5 mcg/actuation inhaler Inhale 1 Puff as instructed twice daily.1 Each 2 albuterol HFA (VENTOLIN HFA) 90 mcg/actuation inhaler Inhale 2 Puffs as instructed every 4 hours asneeded for wheezing/shortness of breath. 1 Each 2 cyclobenzaprine (FLEXERIL) 10 mg tablet Take 1 tablet by mouth three times daily as needed for muscle spasm. 45 tablet 1 metFORMIN (GLUCOPHAGE) 1,000 mg tablet Take 1 tablet by mouth daily with breakfast. 90 tablet 1 labetalol (TRANDATE) 200 mg tablet Take 1 tablet by mouth twice daily. 180 tablet 1 simvastatin (ZOCOR) 20 mg tablet Take 1 tablet by mouth daily at bedtime. 90 tablet 3 triamcinolone acetonide (KENALOG) 0.1 % cream CPAP Initiate Auto PAP @ 5-20 cm of water with humidification. Mask (per patient preference) optional chin strap (if indicated) , filters, tubing, humidifier and lifetime supplies. 1 Device 0 Blood Pressure Test Kit-Medium kit 1 Kit once daily. 1 Kit 0 Omeprazole Magnesium 20 mg tablet Take 20 mg by mouth once daily. Current Facility-Administered Medications Medication Dose Route Frequency Provider Last Rate Last Admin perflutren lipid microspheres 1.3 mL in NaCl (PF) 0.9% 10 mL injection (DEFINITY) INTRAVENOUS DIRECTED PRN M Marty Hernandez PA-C sodium chloride 0.9 % (flush) 10 mL (BD POSIFLUSH) 10 mL INTRAVENOUS DIRECTED PRN Casey Hernandez PA-C ABDOMINAL AORTIC ANEURYSM SCREENING Never done BP CONTROLLED (<130/80) Never done LUNG CANCER SCREENING Never done SHINGRIX VACCINE(1 of 2) Never done COLORECTAL CANCER SCREENING due on 09/16/2017 ADVANCE DIRECTIVE DISCUSSION due on 05/22/2022 EXAM: BP 136/72 Pulse 88 Resp 16 Wt 131.5 kg (290 lb) SpO2 96% BMI 43.77 kg/m Weight up 4-5lbs Pleasant obese man in no acute distress. Alert and oriented all spheres. Normal affect and cognition. Speech normal. No deficits to learning or comprehension. Skin warm, dry, pink to lips and nailbeds. Normal turgor. Respirations regular and unlabored. Chest is normal shape. Lungs are clear to all herrera with good air exchange through out. HRRR without murmur or gallop. No lifts, heaves, or rubs. Extrem: no clubbing or cyanosis. Edema: none. Extremities are warm and pink with prompt capillary refill. ASSESSMENT/PLAN: 1. Alcohol dependence with uncomplicated intoxication (HCC) - ICD9: 303.00, ICD10: F10.220 (primarydiagnosis) Recommend 180 for outpatient alcohol treatment. Patient has been through this previously and agreesto call to day for appointment Discussed again that we can't understand a baseline when using. Discussed marijuana use as another psychoactive drug which affects outcomes with depression and motivation, risks of increased fear based disorders. Discussed treamtent plan at length. He has a possible sponsor and is planning to attend AA meeting today, 2. Mild episode of recurrent major depressive disorder (HCC) - ICD9: 296.31, ICD10: F33.0 Follow in 4 weeks with med changes and outpatient treatment goals. Casey Hernandez PA-C documented in this encounterC[facility]03-27-2023 Miscellaneous Notes* Telephone Encounter - Coreen Marsh RN - 08/15/2022 12:20 PM EDT Pt called in and scheduled with Paul Hernandez tomorrow at 840. * Telephone Encounter - Nellie Dubose RN - 08/15/2022 10:33 AM EDT Call placed to patient with no answer. Message left for patient to phone back as soon as possible to schedule an appointment with provider for this week. Nellie Dubose RN * Telephone Encounter - Casey Hernandez PA-C - 08/12/2022 5:32 PM EDT 5:32p Called, states I just don't know. Week of shit. Doesn't know if depression medication is working. Can't turn depression off. Not suicidal. Not my happy self Getting to I don't give a shit mood. Could care less what people think. Doesn't Feel like me. Smoke marijuana a couple bowls. Has had 50oz beer so far today. Saw counselor yesterday: told him to call me. Inebriated, slurring words. Repeating same statements. Advised to increase sertraline to 100mg and see next week. The following approved medication requests have been transmitted electronically. Requested Prescriptions Signed Prescriptions Disp Refills sertraline (ZOLOFT) 100 mg tablet 30 tablet 5 Sig: Take 1 tablet by mouth once daily. Authorizing Provider: Casey HERNANDEZ Please schedule follow next week. Thanks, Casey Hernandez PA-C 5:47 PM * Telephone Encounter - Nellie Dubose RN - 08/11/2022 3:24 PM EDT Patient calls to ask if provider would give him a call at [phone]. Asked patient if I could assist or give a message to provider in regards to nature of call. Patientreports provider will know. Just have him give me a call. Nellie Dubose RN documented in this encounterCleveland [facility]02-25-2023 Miscellaneous Notes* Telephone Encounter - Darius Ludwig LPN - 07/16/2022 11:35 AM EST Patient phones requesting refills as follows: Requested Prescriptions Pending Prescriptions Disp Refills amLODIPine (NORVASC) 5 mg tablet 90 tablet 1 Sig: Take 1 tablet by mouth once daily. sertraline (ZOLOFT) 50 mg tablet 90 tablet 1 Sig: Take 1 tablet by mouth once daily. buPROPion (WELLBUTRIN) 75 mg tablet 180 tablet 1 Sig: Take 1 tablet by mouth twice daily. GILLES 02/01/22 NOV no upcoming appt *Pt no showed appt on 05/03/22 Please review and advise. Darius Ludwig LPN * Telephone Encounter - Mee Tineo - 07/16/2022 11:28 AM EST Patient has been identified by name and date of : Yes, Provider PAUL HERNANDEZ Date 07/16/22 [id number] Patient phones for refill(s): Requested Prescriptions Pending Prescriptions Disp Refills amLODIPine (NORVASC) 5 mg tablet 90 tablet 1 Sig: Take 1 tablet by mouth once daily. sertraline (ZOLOFT) 50 mg tablet 90 tablet 1 Sig: Take 1 tablet by mouth once daily. buPROPion (WELLBUTRIN) 75 mg tablet 180 tablet 1 Sig: Take 1 tablet by mouth twice daily. Date of last office visit in primary care: 02/01/22 Last 2 Encounter Wt Readings: Date: Wt: 02/08/2022 129.3 kg (285 lb) 02/01/2022 129.7 kg (286 lb) Previous labs/tests for medication: Not applicable Please advise. Thank you. Mee Tineo documented in this encounterC[facility]-2023 Miscellaneous Notes* Telephone Encounter - Almaz Brooks Ma - 07/01/2022 3:22 PM EST Last OV: 02/01/22 Next OV: No appt Last Rx: 02/11/22 1 each w/2 refills. Almaz Brooks Ma * Telephone Encounter - Poly Flores - 07/01/2022 2:30 PM EST Patient has been identified by name and date of : Yes Requested Prescriptions Pending Prescriptions Disp Refills mometasone-formoterol (DULERA) 200-5 mcg/actuation inhaler 1 Each 2 Sig: Inhale 1 Puff as instructed twice daily. RX INSTRUCTIONS: Patient aware RX will be sent to pharmacy. No need to notify patient. Poly Flores documented in this encounterC[facility]01-03-2023 Miscellaneous Notes* Telephone Encounter - Shaina Montanez Pss - 05/24/2022 3:45 PM EST Pharmacy verified in [facility] Patient has been identified by name and date of : Yes Patient aware RX will be sent to pharmacy. No need to notify patient. Patient phones for refill(s): Requested Prescriptions Pending Prescriptions Disp Refills albuterol HFA (VENTOLIN HFA) 90 mcg/actuation inhaler 1 Each 2 Sig: Inhale 2 Puffs as instructed every 4 hours as needed for wheezing/shortness of breath. cyclobenzaprine (FLEXERIL) 10 mg tablet 45 tablet 1 Sig: Take 1 tablet by mouth three times daily as needed for muscle spasm. Date of last office visit : 02/01/2022 Date of next office visit : Visit date not found Last 2 Encounter Wt Readings: Date: Wt: 02/08/2022 129.3 kg (285 lb) 02/01/2022 129.7 kg (286 lb) Not applicable Please advise. Shaina Montanez Pss' documented in this encounterC[facility]11-29-2022 Miscellaneous Notes* Telephone Encounter - Jaja Herrera Pss - 04/19/2022 12:13 PM EST Patient has been identified by name and date of : Yes Requested Prescriptions Pending Prescriptions Disp Refills amLODIPine (NORVASC) 5 mg tablet 90 tablet 1 Sig: Take 1 tablet by mouth once daily. sertraline (ZOLOFT) 50 mg tablet 90 tablet 1 Sig: Take 1 tablet by mouth once daily. metFORMIN (GLUCOPHAGE) 1,000 mg tablet 90 tablet 1 Sig: Take 1 tablet by mouth daily with breakfast. labetalol (TRANDATE) 200 mg tablet 180 tablet 1 Sig: Take 1 tablet by mouth twice daily. RX INSTRUCTIONS: Reviewed his medications and he needs these 4 renewed. Please send today; the Patient has been out of BP medication for days. The Pharmacy told him they would request and never did. Patient requesting a call when RX is approved and sent to the pharmacy. Please call patient at: [phone]. Jaja Herrera Pss * Telephone Encounter - Ana Maria Trevino Ma - 04/19/2022 10:42 AM EST Last office visit: 02/01/22 F/u scheduled: 05/03/22 RX INSTRUCTIONS: patient is completely out and pharmacy is telling him that there is no refills andthat they have to wait till provider approves refill. Please send DALTON. Ana Maria Trevino Ma * Telephone Encounter - Abiola Cha Pss - 04/19/2022 10:12 AM EST Patient has been identified by name and date of : Yes Requested Prescriptions Pending Prescriptions Disp Refills amLODIPine (NORVASC) 5 mg tablet 90 tablet 1 Sig: Take 1 tablet by mouth once daily. RX INSTRUCTIONS: patient is completely out and pharmacy is telling him that there is no refills andthat they have to wait till provider approves refill. Please send DALTON. Patient aware RX will be sent to pharmacy. No need to notify patient. Abiola Cha Pss documented in this encounterC[facility]11-01-2022 Miscellaneous Notes* Telephone Encounter - Darius Ludwig LPN - 03/22/2022 1:47 PM EDT Pt notified of results/provider response. He verbalized understanding. Darius Ludwig LPN * Telephone Encounter - Darius Ludwig LPN - 03/22/2022 1:44 PM EDT ----- Message from Casey Hernandez PA-C sent at 03/20/2022 7:38 PM EDT ----- Please let him know his hemoglobin A1c is in good range, still prediabetic. Prostate cancer screening was negative. Chemistries look good except liver enzymes are elevated slightly less than previous. Bilirubin is normal indicating normal liver function. Cholesterol is mildly elevated, continue Zocor. Other numbers were good. If possible please complete health form and send in for employer please. Paul Castillo PA-C documented in this encounterC[facility]10-25-2022 Miscellaneous Notes* Telephone Encounter - Elva Bob Pss - 03/15/2022 2:11 PM EDT Patient has been identified by name and date of : Yes Requested Prescriptions Pending Prescriptions Disp Refills albuterol HFA (VENTOLIN HFA) 90 mcg/actuation inhaler Sig: Inhale 2 Puffs as instructed every 4 hours as needed for wheezing/shortness of breath. RX INSTRUCTIONS: Patient aware RX will be sent to pharmacy. No need to notify patient. Elva Bob Pss documented in this [facility]10-25-2022 Miscellaneous Notes* Telephone Encounter - Casey Hernandez PA-C - 03/15/2022 11:08 AM EDT Telephone on 03/15/22 MAGNESIUM BLD HGB A1C PSA/PROSTSPECAG SCRN LIPID PANEL BASIC COMP METABOLIC PANEL CBC + DIFF Paul Castillo PA-C * Telephone Encounter - Olga Duval - 03/15/2022 10:59 AM EDT Patient here for labs. Orders were canceled from 01/12/22. Re-pended. Please sign. Anna. Olgacarlos Duval documented in this encounterC[facility]10-24-2022 Miscellaneous Notes* Telephone Encounter - Desirae Padgett Ma - 03/14/2022 9:55 AM EDT Pt has been notified 2 different times See other encounter. Pt has until 03/21/22 to complete labs for forms. * Telephone Encounter - Casey Hernandez PA-C - 03/14/2022 4:25 AM EDT Please advise I am still holding form for completion. Labwork is still pending. Paul Castillo PA-C documented in this encounterCleveland [facility]10-17-2022 Miscellaneous Notes* Telephone Encounter - Desirae Padgett Ma - 03/07/2022 11:53 AM EDT Spoke with patient. He has wed morning off so will complete labs then * Telephone Encounter - Casey Hernandez PA-C - 03/05/2022 10:23 AM EDT Please remind still waiting for lab completion for wellness form Paul Castillo PA-C * Telephone Encounter - Almaz Brooks Ma - 02/28/2022 2:08 PM EDT Call to pt notified him to complete labs that have been ordered for him so we can complete. Pt understood. Forms on PCP desk to sign. Almaz Brooks Ma * Telephone Encounter - Almaz Brooks Ma - 02/28/2022 9:04 AM EDT Type of form: 2021 Preventative Care Physical Screening Form, [employer]. Form received via walk in When form is completed, Fax form to [phone] or [phone] Form has been forwarded to Physician Desk: IZABELLA Clayton Ma documented in this encounterC[facility]10-07-2022 Miscellaneous Notes* Telephone Encounter - Dalia Leiva - 02/25/2022 12:53 PM EDT Patient has been identified by name and date of : No Requested Prescriptions Pending Prescriptions Disp Refills cyclobenzaprine (FLEXERIL) 10 mg tablet 45 tablet 1 Sig: Take 1 tablet by mouth three times daily as needed for muscle spasm. RX INSTRUCTIONS: Patient aware RX will be sent to pharmacy. No need to notify patient. Dalia Leiva documented in this encounterC[facility]09-23-2022 Miscellaneous Notes* Telephone Encounter - Casey Hernandez PA-C - 02/11/2022 3:56 PM EDT I called [facility], they only have 100 + 200mcg dosing, same with [facility]. The following approved medication requests have been transmitted electronically. Requested Prescriptions Signed Prescriptions Disp Refills mometasone-formoterol (DULERA) 200-5 mcg/actuation inhaler 1 Each 2 Sig: Inhale 1 Puff as instructed twice daily. Authorizing Provider: Casey HERNANDEZ PA-C * Telephone Encounter - Casey Hilton RN - 02/11/2022 12:49 PM EDT Patient reports [facility] tells him dulera is on back order and they are unable to get it. Askingif there is something else Paul can prescribe? Please advise patient. documented in this encounterCleveland [facility]09-22-2022 Miscellaneous Notes* Telephone Encounter - Desirae Padgett Ma - 02/10/2022 9:31 AM EDT Patient was made aware of the results. Patient verbalizes understanding. Pt will check into new rx coverage. Desirae Padgett Ma * Telephone Encounter - Desirae Padgett Ma - 02/10/2022 7:56 AM EDT Please advise PFT and lung volumes show no obstructive lung disease (asthma, COPD) but do show restrictive disease likely from obesity. We need to work on weight loss. I would recommend weight watchers, or consult to nutrition, or at least on-line accountability withE-coaching if he is willing: let me know. We can discuss medical and surgical options if he wants. Thanks, Paul Hernandez PA-C * Telephone Encounter - Casey Hernandez PA-C - 02/09/2022 6:04 PM EDT Looks like insurance might cover: The following approved medication requests have been transmitted electronically. Requested Prescriptions Signed Prescriptions Disp Refills mometasone-formoterol (DULERA) 50-5 mcg/actuation HFA aerosol inhaler 1 Each 5 Sig: Inhale 2 Puffs as instructed twice daily. Authorizing Provider: Casey HERNANDEZ PA-C * Telephone Encounter - Michelle Crow LPN - 02/09/2022 2:16 PM EDT Patient calling, states that Spiriva is too expensive. States that he has found coupons and discounts but even with those it will be too much. Asking for an alternative. Also asking if results of his pulmonary testing is back. Please advise. documented in this encounterC[facility]09-20-2022 History of Present illness Narrative* YUMIKO Park - 02/08/2022 8:33 AM EDT PULM FUNCTION SMARTBLOCK: Provider: Casey Hernandez PA-C Assisting Tech: YUMIKO Park Spirometry w/BD: 1 DLCO: 1 LV - Box: 1 documented in this encounterCleveland Clinic [facility]09-19-2022 Miscellaneous Notes* Telephone Encounter - Darius Ludwig LPN - 02/07/2022 4:56 PM EDT Pt notified. He verbalized understanding. Darius Ludwig LPN * Telephone Encounter - Jorge Boland MD - 02/07/2022 4:41 PM EDT They all usually cost around that much. I can try that one to see * Telephone Encounter - Rose Wynn LPN - 02/07/2022 3:31 PM EDT Patient calling on 02/01 Paul Hernandez put him on Ipratropium albuterol 20/100 inhaler (Combivent Respimat) and cost with his insurance is 400 hundred dollars. Patient said he warned him it was expensive. Patient is asking for another inhaler hopefully cheaper to be sent to [facility] pharmacy. 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 Hypertension, essential (primary encounter diagnosis) Current meds: Labetolol 200mg daily Amlodipine 5mg daily Patient is compliant with meds Yes Monitors bp at home: No. If yes, readings: Denies side effects: No. Chest pain: No. Dyspnea: No. Edema: ankles. Palpitations: No. Syncope: No. Headache: No. Dizziness: No. Last 3 Encounter BP Readings: Date: BP: 09/24/2021 144/80 07/22/2021 154/92 07/13/2021 123/76[BP Esteban average[ Last 2 Encounter Wt Readings: Date: Wt: 09/24/2021 129.9 kg (286 lb 6.4 oz) 07/22/2021 130.2 kg (287 lb) Prediabetes Current medications: Metformin 1000mg daily with breakfast Hemoglobin A1C (%) Date Value 06/10/2021 6.6 03/03/2021 6.6 ) Hyperlipidemia, mixed Current medication Simvastatin 20mg daily HS Taking medication consistently Yes Observing low cholesterol high fiber diet No Muscle aches No Stomach complaints/ diarrhea No. Last 2 Lipids: Component Latest Ref Rng & Units 07/22/2019 03/03/2021 Cholesterol, Total <200 mg/dL 194 194 Triglyceride <150 mg/dL 71 138 HDL Cholesterol >39 mg/dL 69 52 LDL Cholesterol <100 mg/dL 111 (H) 114 (H) Non HDL Cholesterol <130 mg/dL 125 142 (H) Fasting Time hrs 13 12 VLDL Cholesterol <30 mg/dL 14 28 TC:HDL Ratio <5.10 2.81 3.73 LDL:HDL Ratio <2.54 1.61 2.19 Gerd without esophagitis Current medication: Omeprazole 20mg AC daily. Current symptoms: none. Last Mg level if on PPI chronically: pending. Heartburn is controlled: Yes. Dysphagia: No. Bloody or black stools: No. Bowel changes: Yes, notes lately urgency and change having BM in evening. Usually very regular daily in th morning. Last EGD and/or colonoscopy: none. Overweight Vitals 03/05/2021 06/11/2021 07/13/2021 07/22/2021 09/24/2021 02/01/2022 WEIGHT in POUNDS 282 lb 284 lb 6.4 oz 287 lb 286 lb 6.4 oz 286 lb Mild episode of recurrent depression Current medications: Bupropion 75 mg twice a day Feels mood is doing well. Change in job has greatly improved his disposition Alcohol dependence with uncomplicated intoxication (hcc) 12pk /week Vodka 40 proof States going to drink until he dies. 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 Interval history: persistent SHAH, 80 yards and has to stop. Worsening shortness of breath: Yes. Cough: No. Wheezing: No. Smoking: Yes. Compliant with medications: Yes. Using rescue inhaler: 4 times a day. REVIEW OF SYSTEMS PAIN ASSESSMENT: Negative for pain, history of chronic pain, or current treatment for a chronic pain condition. GENERAL: No weight loss, malaise or fevers GI: No nausea, vomiting, or diarrhea and See HPI MUSCULOSKELETAL: Negative for joint pain or swelling, back pain or muscle pain and some ache occasionally with activity NEURO: No history of headaches, syncope, paralysis, seizures or tremors : if doesn't use CPAP up once a night to urinate, otherwise sleeps through. No problems with stream. HISTORIES FAMILY HISTORY Problem Relation Age of Onset Cancer Mother Throat Diabetes Father PAST MEDICAL HISTORY Diagnosis Date Adjustment disorder with depressed mood Degeneration of intervertebral disc, site unspecified GERD (gastroesophageal reflux disease) Hiatal hernia Hyperlipidemia, mixed 10/24/2017 Hypertension Major depressive disorder, recurrent episode (HCC) 04/07/2005 Tobacco use disorder 07/15/2008 PAST SURGICAL HISTORY Procedure Laterality Date ARTHROSCOPY KNEE DIAGNOSTIC W/WO SYNOVIAL BX SPX 1999 Arthroscopy, knee right ARTHROSCOPY KNEE DIAGNOSTIC W/WO SYNOVIAL BX SPX 2007 Arthroscopy, knee left ARTHRP KNE CONDYLE&PLATU MEDIAL&LAT COMPARTMENTS Apr [address] [facility] Knowles. Rt ARTHRP KNE CONDYLE&PLATU MEDIAL&LAT COMPARTMENTS Apr [address] [facility] [address] Strauss - left knee OPTX ANKLE DISLOCATION W/REPAIR/INT/XTRNL FIXJ ORIF Ankle left PAST SURGICAL HISTORY OF 2007 ORIF left forearm fracture Social History Tobacco Use Smoking status: Every Day Packs/day: 1.00 Years: 20.00 Pack years: 20.00 Types: Cigarettes Smokeless tobacco: Never Tobacco comments: smoking 1/2 pack a day now Substance Use Topics Alcohol use: Yes Alcohol/week: 60.0 standard drinks Types: 20 Cans of Beer (12oz), 6 Shots of liquor per week Comment: 2 Drug use: No Comment: past history marjialvina in the 70's ACTIVE PROBLEM LIST Major Depressive Disorder, Recurrent Episode (Hcc) Backache PAIN JOINT, KNEE PAIN JOINT, ANKLE Leukocytosis Other Specified Type of Hydrocele Sebaceous Cyst PAIN GROIN Chest Pain, Unspecified Tobacco Use Disorder Hearing Loss in Left Ear Overweight Hypertension, Essential Prediabetes Hyperlipidemia, Mixed Gerd Without Esophagitis Ddd (Degenerative Disc Disease), Lumbar Chronic Midline Low Back Pain Without Sciatica Alcohol Dependence With Uncomplicated Intoxication (Hcc) Current Outpatient Medications Medication Sig Dispense Refill buPROPion (WELLBUTRIN) 75 mg tablet Take 1 tablet by mouth twice daily. 180 tablet 1 albuterol HFA (VENTOLIN HFA) 90 mcg/actuation inhaler Inhale 2 Puffs as instructed every 4 hours asneeded for wheezing/shortness of breath. 1 Inhaler 1 labetalol (TRANDATE) 200 mg tablet Take 1 tablet by mouth twice daily. 180 tablet 1 metFORMIN (GLUCOPHAGE) 1,000 mg tablet Take 1 tablet by mouth daily with breakfast. 90 tablet 1 cyclobenzaprine (FLEXERIL) 10 mg tablet Take 1 tablet by mouth three times daily as needed for muscle spasm. 45 tablet 1 amLODIPine (NORVASC) 5 mg tablet Take 1 tablet by mouth once daily. 90 tablet 1 sertraline (ZOLOFT) 50 mg tablet Take 1 tablet by mouth once daily. 90 tablet 1 labetalol (TRANDATE) 100 mg tablet Take 1.5 tablets by mouth twice daily. 135 tablet 3 simvastatin (ZOCOR) 20 mg tablet Take 1 tablet by mouth daily at bedtime. 90 tablet 3 triamcinolone acetonide (KENALOG) 0.1 % cream CPAP Initiate Auto PAP @ 5-20 cm of water with humidification. Mask (per patient preference) optional chin strap (if indicated) , filters, tubing, humidifier and lifetime supplies. 1 Device 0 Blood Pressure Test Kit-Medium kit 1 Kit once daily. 1 Kit 0 Omeprazole Magnesium 20 mg tablet Take 20 mg by mouth once daily. Current Facility-Administered Medications Medication Dose Route Frequency Provider Last Rate Last Admin perflutren lipid microspheres 1.3 mL in NaCl (PF) 0.9% 10 mL injection (DEFINITY) INTRAVENOUS DIRECTED PRN Casey Hernandez PA-C sodium chloride 0.9 % (flush) 10 mL (BD POSIFLUSH) 10 mL INTRAVENOUS DIRECTED PRN Casey Hernandez PA-C ABDOMINAL AORTIC ANEURYSM SCREENING Never done HIV SCREENING Never done BP CONTROLLED (<130/80) Never done LUNG CANCER SCREENING Never done SHINGRIX VACCINE(1 of 2) Never done COLORECTAL CANCER SCREENING due on 09/16/2017 PNEUMOCOCCAL: 65+(2 - PPSV23 or PCV20) due on 12/11/2019 PROSTATE CANCER SCREENING DISCUSSION due on 01/29/2021 ADVANCE DIRECTIVE DISCUSSION Never done COVID-19 VACCINE(4 - Booster for Pfizer series) due on 09/25/2021 INFLUENZA(1) due on 01/20/2022 EXAM: BP 132/78 Pulse 85 Resp 16 Ht 174 cm (5' 8.5) Wt 129.7 kg (286 lb) SpO2 97% BMI 42.85 kg/m waist circumference 65in Pleasant obese man in no acute distress. Alert and oriented all spheres. Normal affect and cognition. Speech normal. No deficits to learning or comprehension. Skin warm, dry, pink to lips and nailbeds. Normal turgor. Senile purpura. No significant lesions. Respirations regular and unlabored. Mildly SOB getting up and down from table. Faint wheeze brieflyaudible. HEENT: NCAT. No scleral icterus or conjunctival injection. TM's clear. Nose and oropharynx free from injection or lesion. Oral membranes moist and pink. No cervical lymph nodes. Thyroid non-tender, no masses, or enlargement. Carotids pulses 2+/4+ without bruits. No JVD with HOB at 30 degrees. Chest is normal shape. Lungs are clear to all herrera with good air exchange through out. HRRR without murmur or gallop. No lifts, heaves, or rubs. Abd: grossly obese, bowel sounds active throughout. Has a few varicosities bilateral abdomen. No pulsatile masses or bruits. Non-tender. No rebound, guarding, or peritoneal signs. No masses. No organomegaly. Covarrubias's punch: negative. No flank pain. No inguinal or axillary lymphadenopathy. Extrem: no clubbing, cyanosis, or leg edema. Distal pulses 2+/4, prompt capillary refill.Think encurvated nails. Neuro: CN 212 grossly intact. Motor full upper and lower symmetric. Sensory intact distally to light touch. DTR's 0-1/4+ symmetric biceps, triceps, brachioradialis, knee jerk, Achilles. Plantars down-going bilaterally. Cerebellar intact finger to nose, heel to payne. Rhomberg negative, Gait and balance otherwise normal. Nails trimmed. ASSESSMENT/PLAN: 1. Hypertension, essential - ICD9: 401.9, ICD10: I10 (primary diagnosis) - fair control - Continue current medication(s) - Recommended regular aerobic exercise. - Recommend home blood pressure monitoring, to bring results in on next visit - Goal of BP <130/80 2. Prediabetes - ICD9: 790.29, ICD10: R73.03 Stable, continue metformin Encouraged weight loss 3. Hyperlipidemia, mixed - ICD9: 272.2, ICD10: E78.2 - suboptimal control - Continue current medication. - Encouraged following a low fat, low cholesterol diet. - Discussed the benefits of regular aerobic exercise and weight loss. 4. GERD without esophagitis - ICD9: 530.81, ICD10: K21.9 - Discussed lifestyle modifications including losing weight, limiting caffeine, no meals three hours before sleep, and head of bed elevation 5. Overweight - ICD9: 278.02, ICD10: E66.3 Weight increasing - Behavioral intervention 6. Alcohol dependence with uncomplicated intoxication (HCC) - ICD9: 303.00, ICD10: F10.220 Continues drinking, as above probably will til I . Not interested in outpatient treatment 7. Tobacco use disorder - ICD9: 305.1, ICD10: F17.200 - Cessation encouraged - not interested in medication or other adjuncts - Physiologic and physical aspects of tobacco addiction as well as strategies for quitting were discussed. - Counseling was given focusing on the harmful effects of this addiction especially given the patient's medical condition(s) which will be worsened because of the chemicals in tobacco. - LUNG VOLUMES - LUNG DIFFUSION CAPACITY (DLCO) - SPIROMETRY WITH DILATOR IF OBSTRUCTED 8. Mild episode of recurrent major depressive disorder (HCC) - ICD9: 296.31, ICD10: F33.0 Stable on medication. Improved with change in employment 9. SHAH (dyspnea on exertion) - ICD9: 786.09, ICD10: R06.09 Weight increasing - Behavioral intervention - LUNG VOLUMES - LUNG DIFFUSION CAPACITY (DLCO) - SPIROMETRY WITH DILATOR IF OBSTRUCTED - IPRATROPIUM 20 MCG-ALBUTEROL 100 MCG/ACTUATION MIST FOR INHALATION: new medication reviewed in terms of regular use, side effects, additional use of albuterol MDI if needed 10. ROMIE (obstructive sleep apnea) - ICD9: 327.23, ICD10: G47.33 Using CPAP nightly with improvement in sleep and energy- feels terrible if he goes without. 11. Need for vaccination - ICD9: V05.9, ICD10: Z23 - PNEUMOCOCCAL IMMUNIZATION PPSV 23 12. Screening for colon cancer - ICD9: V76.51, ICD10: Z12.11 - FECAL OCCULT BLOOD TEST 13. Change in bowel habit - ICD9: 787.99, ICD10: R19.4 Encouraged increased activity, fluids, fiber, reduction in alcohol use. - FECAL OCCULT BLOOD TEST 14. Incurvated nail - ICD9: 703.8, ICD10: L60.8 Trimmed nails x 10. Casey Hernandez PA-C documented in this encounterCleveland [facility]08-30-2022 Miscellaneous Notes* Telephone Encounter - Jaja Herrera [facility] - 01/18/2022 1:55 PM EDT Patient has been identified by name and date of : Yes Requested Prescriptions Pending Prescriptions Disp Refills buPROPion (WELLBUTRIN) 75 mg tablet 180 tablet 1 Sig: Take 1 tablet by mouth twice daily. RX INSTRUCTIONS: PLEASE NOTE: ON 09/24/21: Quantity was wrong; he takes 2 tablets daily, this is why he needs a new prescription. Patient aware RX will be sent to pharmacy. No need to notify patient. Jaja Yuan documented in this encounterCleveland Clinic [facility]08-24-2022 Miscellaneous Notes* Telephone Encounter - Dorothy Stephenson Ma - 01/12/2022 11:29 AM EDT Patient was notified Dorothy Stephenson Ma * Telephone Encounter - Casey Hernandez PA-C - 01/12/2022 10:46 AM EDT Telephone on 01/11/22 CBC COMP METABOLIC PANEL LIPID PANEL BASIC PSA/PROSTSPECAG SCRN HGB A1C MAGNESIUM BLD Thanks, Paul Hernandez PA-C * Telephone Encounter - Shaina Aparicio - 01/11/2022 3:01 PM EDT Pt has upcoming appt with Paul and would like to get all labs done prior to appt. He needs full panel of labs for insurance wellness. [facility] Miscellaneous Notes* Telephone Encounter - Jaja Herrera Pss - 11/02/2021 4:17 PM EDT Patient has been identified by name and date of : Yes Pending Prescriptions Disp Refills ALBUTEROL SULFATE HFA 90 MCG/ACTUATION AEROSOL INHALER 1 Inhaler 1 Sig: Inhale 2 Puffs as instructed every 4 hours as needed for wheezing/shortness of breath. EFRAIN: No RX INSTRUCTIONS: Per patient the inhaler is helping him. He needs this tomorrow. Patient aware RX will be sent to pharmacy. No need to notify patient. Jaja Herrera Pss documented in this encounterC[facility] Miscellaneous Notes* Telephone Encounter - Darius Ludwig LPN - 09/28/2021 10:01 AM EDT Pt notified. He verbalized understanding. He states he has used an inhaler before. Darius Ludwig LPN * Telephone Encounter - Casey Hernandez PA-C - 09/27/2021 6:32 PM EDT Radiologist says CXR is normal-I would still give my interpretation the same. Has he ever used an inhaler. If not we could start with albuterol MDI- comes with pictures and instructions on use. Monitor daily weight if possible and notify me if > 3-5lb gain in 3 days with increased swellingor SOB. The following approved medication requests have been transmitted electronically. Signed Prescriptions Disp Refills albuterol HFA (VENTOLIN HFA) 90 mcg/actuation inhaler 1 Inhaler 0 Sig: Inhale 2 Puffs as instructed every 4 hours as needed for wheezing/shortness of breath. Authorizing Provider: Casey HERNANDEZ PA-C * Telephone Encounter - Desirae Padgett Ma - 09/27/2021 12:42 PM EDT Pt asking what next steps, any medication to take? Please advise. Desirae Padgett Ma * Telephone Encounter - Casey Hernandez PA-C - 09/27/2021 11:23 AM EDT Please advise: CXR reviewed: no overt infectious process or signs of CHF, hyperinflation consistentwith COPD (pending radiologist) Paul Castillo PA-C * Telephone Encounter - Olamide Jones LPN - 09/27/2021 10:17 AM EDT Pt wanted to let pcp know that he got xray done. Xray currently in process. Olamide Jones LPN * Telephone Encounter - Nae Bob LPN - 09/24/2021 11:36 AM EDT Pt called in from his car and states he has been waiting for 2 hours to get an X-Ray and can not wait any longer had to get to work. I apologized to pt for his wait and let him know that it does not look like he was checked in for an X- ray. Pt instructed when he comes back tomorrow to make sure he goes to the front desk admin and gets checked in. Pt agrees and will do tomorrow. Nae Bob LPN documented in this [facility] History of Present illness Narrative* Melissa Rosa RT(R) - 09/27/2021 9:40 AM EDT Radiology Service Progress Note PATIENT NAME: Abdirizak Colindres DATE OF SERVICE: September 27, 2021 TIME: 10:07 AM PATIENT IDENTITY VERIFICATION COMPLETED USING TWO (2) IDENTIFIERS: Name and Date of confirmedby patient verbally. FALL SCREENING: Has the patient had 2 falls in the last year or 1 fall with injury or currently using an Ambulatory Assistive Device (Walker, Cane, Wheelchair, Crutches, etc.)? No PATIENT GENDER DATA: Male PATIENT RELEVANT IMPLANT DATA REVIEWED: Not Applicable RADIOLOGY DEPARTMENT: General X-ray: Exam(s) Completed: Chest X-Ray PERIPHERAL IV DATA: Not applicable SIGNED BY: RT Earle(R) September 27, 2021 10:07 AM documented in this encounterC[facility]22 Miscellaneous Notes* Telephone Encounter - Casey Hernandez PA-C - 09/10/2021 1:16 PM EDT 1:16 PM Phoned Had tooth pain after extraction. Didn't call dentist. Doing better now. Staying off alcohol. Paul Hernandez PA-C * Telephone Encounter - Mee Gu RN - 09/09/2021 4:20 PM EDT Patient calls and states that he had to cancel and reschedule his appointment for tomorrow due to having tooth issues. Patient asking if provider can give him a call? Please review and advise, Mee Gu RN documented in this encounterC[facility]04[facility]22 Miscellaneous Notes* Telephone Encounter - Oneyda Nagy MA - 08/30/2021 10:18 AM EDT Patient has been identified by name and date of : Yes Pending Prescriptions Disp Refills METFORMIN 1,000 MG TABLET 90 tablet 1 Sig: Take 1 tablet by mouth daily with breakfast. EFRAIN: No RX INSTRUCTIONS: Patient aware RX will be sent to pharmacy. No need to notify patient. Oneyda Nagy MA Last ov: 07/2021 Nov: 08/2021 Last refill: 02/2021 * Telephone Encounter - Nuvia Yuan - 08/30/2021 10:12 AM EDT Patient has been identified by name and date of : Yes Pending Prescriptions Disp Refills METFORMIN 1,000 MG TABLET 90 tablet 1 Sig: Take 1 tablet by mouth daily with breakfast. EFRAIN: No RX INSTRUCTIONS: Patient aware RX will be sent to pharmacy. No need to notify patient. Nuvia Yuan documented in this encounterC[facility]04-15-[facility]21 History of Present illness Narrative* Shanique Elliott)Yolanda - 09/03/2020 9:50 AM EDT Radiology Service Progress Note PATIENT NAME: Abdirizak Colindres DATE OF SERVICE: September 03, 2020 TIME: 9:58 AM PATIENT IDENTITY VERIFICATION COMPLETED USING TWO (2) IDENTIFIERS: Name and Date of confirmedby patient verbally. FALL SCREENING: Has the patient had 2 falls in the last year or 1 fall with injury or currently using an Ambulatory Assistive Device (Walker, Cane, Wheelchair, Crutches, etc.)? No PATIENT GENDER DATA: Male PATIENT RELEVANT IMPLANT DATA REVIEWED: Yes RADIOLOGY DEPARTMENT: General X-ray: Exam(s) Completed: Upper Extremity X- Ray(s): Fingers/Thumb, left : PERIPHERAL IV DATA: Not applicable SIGNED BY: RT Freddie September 03, 2020 9:58 AM documented in this encounterC[facility] History of Past illness Narrative* Problem Noted Date Resolved Date Medial epicondylitis 02/24/2010 09/15/2010 Hypertrophy of prostate with out urinary obstruction and other lower urinary tract symptoms (LUTS) 12/15/2006 12/27/2017 Elevated blood pressure read ing without diagnosis of hypertension 05/01/2006 12/17/2010 documented as of this encounter (statuses as of 08/30/2021) [facility] Narrative* Problem Noted Date Resolved Date Medial epicondylitis 02/24/2010 09/15/2010 Hypertrophy of prostate with out urinary obstruction and other lower urinary tract symptoms (LUTS) 12/15/2006 12/27/2017 Elevated blood pressure read ing without diagnosis of hypertension 05/01/2006 12/17/2010 documented as of this encounter (statuses as of 09/10/2021) [facility] Narrative* Problem Noted Date Resolved Date Medial epicondylitis 02/24/2010 09/15/2010 Hypertrophy of prostate with out urinary obstruction and other lower urinary tract symptoms (LUTS) 12/15/2006 12/27/2017 Elevated blood pressure read ing without diagnosis of hypertension 05/01/2006 12/17/2010 documented as of this encounter (statuses as of 09/28/2021) [facility] Narrative* Problem Noted Date Resolved Date Medial epicondylitis 02/24/2010 09/15/2010 Hypertrophy of prostate with out urinary obstruction and other lower urinary tract symptoms (LUTS) 12/15/2006 12/27/2017 Elevated blood pressure read ing without diagnosis of hypertension 05/01/2006 12/17/2010 documented as of this encounter (statuses as of 11/02/2021) [facility] Narrative* Problem Noted Date Resolved Date Medial epicondylitis 02/24/2010 09/15/2010 Hypertrophy of prostate with out urinary obstruction and other lower urinary tract symptoms (LUTS) 12/15/2006 12/27/2017 Elevated blood pressure read ing without diagnosis of hypertension 05/01/2006 12/17/2010 documented as of this encounter (statuses as of 01/12/2022) [facility] Narrative* Problem Noted Date Resolved Date Medial epicondylitis 02/24/2010 09/15/2010 Hypertrophy of prostate with out urinary obstruction and other lower urinary tract symptoms (LUTS) 12/15/2006 12/27/2017 Elevated blood pressure read ing without diagnosis of hypertension 05/01/2006 12/17/2010 documented as of this encounter (statuses as of 01/18/2022) [facility] Narrative* Problem Noted Date Resolved Date Medial epicondylitis 02/24/2010 09/15/2010 Hypertrophy of prostate with out urinary obstruction and other lower urinary tract symptoms (LUTS) 12/15/2006 12/27/2017 Elevated blood pressure read ing without diagnosis of hypertension 05/01/2006 12/17/2010 documented as of this encounter (statuses as of 02/01/2022) [facility] Narrative* Problem Noted Date Resolved Date Medial epicondylitis 02/24/2010 09/15/2010 Hypertrophy of prostate with out urinary obstruction and other lower urinary tract symptoms (LUTS) 12/15/2006 12/27/2017 Elevated blood pressure read ing without diagnosis of hypertension 05/01/2006 12/17/2010 documented as of this encounter (statuses as of 02/07/2022) [facility] Narrative* Problem Noted Date Resolved Date Medial epicondylitis 02/24/2010 09/15/2010 Hypertrophy of prostate with out urinary obstruction and other lower urinary tract symptoms (LUTS) 12/15/2006 12/27/2017 Elevated blood pressure read ing without diagnosis of hypertension 05/01/2006 12/17/2010 documented as of this encounter (statuses as of 02/08/2022) [facility] Narrative* Problem Noted Date Resolved Date Medial epicondylitis 02/24/2010 09/15/2010 Hypertrophy of prostate with out urinary obstruction and other lower urinary tract symptoms (LUTS) 12/15/2006 12/27/2017 Elevated blood pressure read ing without diagnosis of hypertension 05/01/2006 12/17/2010 documented as of this encounter (statuses as of 02/10/2022) [facility] Narrative* Problem Noted Date Resolved Date Medial epicondylitis 02/24/2010 09/15/2010 Hypertrophy of prostate with out urinary obstruction and other lower urinary tract symptoms (LUTS) 12/15/2006 12/27/2017 Elevated blood pressure read ing without diagnosis of hypertension 05/01/2006 12/17/2010 documented as of this encounter (statuses as of 02/11/2022) [facility] Narrative* Problem Noted Date Resolved Date Medial epicondylitis 02/24/2010 09/15/2010 Hypertrophy of prostate with out urinary obstruction and other lower urinary tract symptoms (LUTS) 12/15/2006 12/27/2017 Elevated blood pressure read ing without diagnosis of hypertension 05/01/2006 12/17/2010 documented as of this encounter (statuses as of 02/25/2022) [facility]ative* Problem Noted Date Resolved Date Medial epicondylitis 02/24/2010 09/15/2010 Hypertrophy of prostate with out urinary obstruction and other lower urinary tract symptoms (LUTS) 12/15/2006 12/27/2017 Elevated blood pressure read ing without diagnosis of hypertension 05/01/2006 12/17/2010 documented as of this encounter (statuses as of 03/07/2022) [facility]ative* Problem Noted Date Resolved Date Medial epicondylitis 02/24/2010 09/15/2010 Hypertrophy of prostate with out urinary obstruction and other lower urinary tract symptoms (LUTS) 12/15/2006 12/27/2017 Elevated blood pressure read ing without diagnosis of hypertension 05/01/2006 12/17/2010 documented as of this encounter (statuses as of 03/15/2022) [facility]* Problem Noted Date Resolved Date Medial epicondylitis 02/24/2010 09/15/2010 Hypertrophy of prostate with out urinary obstruction and other lower urinary tract symptoms (LUTS) 12/15/2006 12/27/2017 Elevated blood pressure read ing without diagnosis of hypertension 05/01/2006 12/17/2010 documented as of this encounter (statuses as of 03/15/2022) [facility]* Problem Noted Date Resolved Date Medial epicondylitis 02/24/2010 09/15/2010 Hypertrophy of prostate with out urinary obstruction and other lower urinary tract symptoms (LUTS) 12/15/2006 12/27/2017 Elevated blood pressure read ing without diagnosis of hypertension 05/01/2006 12/17/2010 documented as of this encounter (statuses as of 03/16/2022) [facility]* Problem Noted Date Resolved Date Medial epicondylitis 02/24/2010 09/15/2010 Hypertrophy of prostate with out urinary obstruction and other lower urinary tract symptoms (LUTS) 12/15/2006 12/27/2017 Elevated blood pressure read ing without diagnosis of hypertension 05/01/2006 12/17/2010 documented as of this encounter (statuses as of 03/22/2022) [facility]ative* Problem Noted Date Resolved Date Medial epicondylitis 02/24/2010 09/15/2010 Hypertrophy of prostate with out urinary obstruction and other lower urinary tract symptoms (LUTS) 12/15/2006 12/27/2017 Elevated blood pressure read ing without diagnosis of hypertension 05/01/2006 12/17/2010 documented as of this encounter (statuses as of 04/19/2022) [facility]ative* Problem Noted Date Resolved Date Medial epicondylitis 02/24/2010 09/15/2010 Hypertrophy of prostate with out urinary obstruction and other lower urinary tract symptoms (LUTS) 12/15/2006 12/27/2017 Elevated blood pressure read ing without diagnosis of hypertension 05/01/2006 12/17/2010 documented as of this encounter (statuses as of 05/26/2022) [facility]ative* Problem Noted Date Resolved Date Medial epicondylitis 02/24/2010 09/15/2010 Hypertrophy of prostate with out urinary obstruction and other lower urinary tract symptoms (LUTS) 12/15/2006 12/27/2017 Elevated blood pressure read ing without diagnosis of hypertension 05/01/2006 12/17/2010 documented as of this encounter (statuses as of 07/02/2022) [facility]* Problem Noted Date Resolved Date Medial epicondylitis 02/24/2010 09/15/2010 Hypertrophy of prostate with out urinary obstruction and other lower urinary tract symptoms (LUTS) 12/15/2006 12/27/2017 Elevated blood pressure read ing without diagnosis of hypertension 05/01/2006 12/17/2010 documented as of this encounter (statuses as of 07/17/2022) [facility]ative* Problem Noted Date Resolved Date Medial epicondylitis 02/24/2010 09/15/2010 Hypertrophy of prostate with out urinary obstruction and other lower urinary tract symptoms (LUTS) 12/15/2006 12/27/2017 Elevated blood pressure read ing without diagnosis of hypertension 05/01/2006 12/17/2010 documented as of this encounter (statuses as of 08/15/2022) [facility]* Problem Noted Date Resolved Date Medial epicondylitis 02/24/2010 09/15/2010 Hypertrophy of prostate with out urinary obstruction and other lower urinary tract symptoms (LUTS) 12/15/2006 12/27/2017 Elevated blood pressure read ing without diagnosis of hypertension 05/01/2006 12/17/2010 documented as of this encounter (statuses as of 08/16/2022) [facility]* Problem Noted Date Resolved Date Medial epicondylitis 02/24/2010 09/15/2010 Hypertrophy of prostate with out urinary obstruction and other lower urinary tract symptoms (LUTS) 12/15/2006 12/27/2017 Elevated blood pressure read ing without diagnosis of hypertension 05/01/2006 12/17/2010 documented as of this encounter (statuses as of 08/23/2022) [facility]* Problem Noted Date Resolved Date Medial epicondylitis 02/24/2010 09/15/2010 Hypertrophy of prostate with out urinary obstruction and other lower urinary tract symptoms (LUTS) 12/15/2006 12/27/2017 Elevated blood pressure read ing without diagnosis of hypertension 05/01/2006 12/17/2010 documented as of this encounter (statuses as of 09/13/2022) [facility]* Problem Noted Date Resolved Date Medial epicondylitis 02/24/2010 09/15/2010 Hypertrophy of prostate with out urinary obstruction and other lower urinary tract symptoms (LUTS) 12/15/2006 12/27/2017 Elevated blood pressure read ing without diagnosis of hypertension 05/01/2006 12/17/2010 documented as of this encounter (statuses as of 09/22/2022) [facility]* Problem Noted Date Resolved Date Medial epicondylitis 02/24/2010 09/15/2010 Hypertrophy of prostate with out urinary obstruction and other lower urinary tract symptoms (LUTS) 12/15/2006 12/27/2017 Elevated blood pressure read ing without diagnosis of hypertension 05/01/2006 12/17/2010 documented as of this encounter (statuses as of 10/26/2022) [facility]* Problem Noted Date Resolved Date Medial epicondylitis 02/24/2010 09/15/2010 Hypertrophy of prostate with out urinary obstruction and other lower urinary tract symptoms (LUTS) 12/15/2006 12/27/2017 Elevated blood pressure read ing without diagnosis of hypertension 05/01/2006 12/17/2010 documented as of this encounter (statuses as of 11/18/2022) [facility]* Problem Noted Date Diagnosed Date Resolved Date Medial epicondylitis 02/24/2010 011 Hypertrophy of prostate with out urinary obstruction and other lower urinary tract symptoms (LUTS) 12/15/2006 12/27/2017 Elevated blood pressure read ing without diagnosis of hypertension 05/01/2006 12/17/2010 documented as of this encounter (statuses as of 11/26/2022) [facility]* Problem Noted Date Diagnosed Date Resolved Date Medial epicondylitis 02/24/2010 011 Hypertrophy of prostate with out urinary obstruction and other lower urinary tract symptoms (LUTS) 12/15/2006 12/27/2017 Elevated blood pressure read ing without diagnosis of hypertension 05/01/2006 12/17/2010 documented as of this encounter (statuses as of 01/28/2023) [facility]* Problem Noted Date Diagnosed Date Resolved Date Medial epicondylitis 02/24/2010 011 Hypertrophy of prostate with out urinary obstruction and other lower urinary tract symptoms (LUTS) 12/15/2006 12/27/2017 Elevated blood pressure read ing without diagnosis of hypertension 05/01/2006 12/17/2010 documented as of this encounter (statuses as of 01/31/2023) [facility]* Problem Noted Date Diagnosed Date Resolved Date Medial epicondylitis 02/24/2010 011 Hypertrophy of prostate with out urinary obstruction and other lower urinary tract symptoms (LUTS) 12/15/2006 12/27/2017 Elevated blood pressure read ing without diagnosis of hypertension 05/01/2006 12/17/2010 documented as of this encounter (statuses as of 02/25/2023) [facility]* Problem Noted Date Diagnosed Date Resolved Date Medial epicondylitis 02/24/2010 011 Hypertrophy of prostate with out urinary obstruction and other lower urinary tract symptoms (LUTS) 12/15/2006 12/27/2017 Elevated blood pressure read ing without diagnosis of hypertension 05/01/2006 12/17/2010 documented as of this encounter (statuses as of 03/21/2023) [facility]* Problem Noted Date Diagnosed Date Resolved Date Medial epicondylitis 02/24/2010 011 Hypertrophy of prostate with out urinary obstruction and other lower urinary tract symptoms (LUTS) 12/15/2006 12/27/2017 Elevated blood pressure read ing without diagnosis of hypertension 05/01/2006 12/17/2010 documented as of this encounter (statuses as of 03/22/2023) [facility]* Problem Noted Date Diagnosed Date Resolved Date Medial epicondylitis 02/24/2010 011 Hypertrophy of prostate with out urinary obstruction and other lower urinary tract symptoms (LUTS) 12/15/2006 12/27/2017 Elevated blood pressure read ing without diagnosis of hypertension 05/01/2006 12/17/2010 documented as of this encounter (statuses as of 03/22/2023) [facility]* Problem Noted Date Diagnosed Date Resolved Date Medial epicondylitis 02/24/2010 011 Hypertrophy of prostate with out urinary obstruction and other lower urinary tract symptoms (LUTS) 12/15/2006 12/27/2017 Elevated blood pressure read ing without diagnosis of hypertension 05/01/2006 12/17/2010 documented as of this encounter (statuses as of 04/12/2023) [facility]* Problem Noted Date Diagnosed Date Resolved Date Medial epicondylitis 02/24/2010 011 Hypertrophy of prostate with out urinary obstruction and other lower urinary tract symptoms (LUTS) 12/15/2006 12/27/2017 Elevated blood pressure read ing without diagnosis of hypertension 05/01/2006 12/17/2010 documented as of this encounter (statuses as of 04/20/2023) [facility]* Problem Noted Date Diagnosed Date Resolved Date Medial epicondylitis 02/24/2010 011 Hypertrophy of prostate with out urinary obstruction and other lower urinary tract symptoms (LUTS) 12/15/2006 12/27/2017 Elevated blood pressure read ing without diagnosis of hypertension 05/01/2006 12/17/2010 documented as of this encounter (statuses as of 05/01/2023) [place] [address]-06-2010 History of Past illness Narrative* Problem Noted Date Diagnosed Date Resolved Date Medial epicondylitis 02/24/2010 011 Hypertrophy of prostate with out urinary obstruction and other lower urinary tract symptoms (LUTS) 12/15/2006 12/27/2017 Elevated blood pressure read ing without diagnosis of hypertension 05/01/2006 12/17/2010 documented as of this encounter (statuses as of 06/29/2023) [facility]* Problem Noted Date Diagnosed Date Resolved Date Medial epicondylitis 02/24/2010 011 Hypertrophy of prostate with out urinary obstruction and other lower urinary tract symptoms (LUTS) 12/15/2006 12/27/2017 Elevated blood pressure read ing without diagnosis of hypertension 05/01/2006 12/17/2010 documented as of this encounter (statuses as of 07/19/2023) [facility]ative* Problem Noted Date Diagnosed Date Resolved Date Medial epicondylitis 02/24/2010 011 Hypertrophy of prostate with out urinary obstruction and other lower urinary tract symptoms (LUTS) 12/15/2006 12/27/2017 Elevated blood pressure read ing without diagnosis of hypertension 05/01/2006 12/17/2010 documented as of this encounter (statuses as of 08/29/2023) [facility]ative* Problem Noted Date Diagnosed Date Resolved Date Medial epicondylitis 02/24/2010 011 Hypertrophy of prostate with out urinary obstruction and other lower urinary tract symptoms (LUTS) 12/15/2006 12/27/2017 Elevated blood pressure read ing without diagnosis of hypertension 05/01/2006 12/17/2010 documented as of this encounter (statuses as of 08/31/2023) [facility] Prediabetes Other abnormal glucose [facility] Alcohol dependence with uncomplicated intoxication (HCC)- Primary Acute alcoholic intoxication in alcoholism, unspecified GERD without esophagitis Esophageal reflux Hyperlipidemia, mixed Mixed hyperlipidemia Hypertension, essential Unspecified essential hypertension Mild episode of recurrent major depressive disorder (HCC) Prediabetes Other abnormal glucose Screening for prostate cancer Special screening for malignant neoplasm of prostate Current use of proton pump inhibitor Encounter for long-term (current) use of other medications [facility] Hypertension, essential- Primary Unspecified essential hypertension Prediabetes Other abnormal glucose Hyperlipidemia, mixed Mixed hyperlipidemia GERD without esophagitis Esophageal reflux Overweight Alcohol dependence with uncomplicated intoxication (HCC) Acute alcoholic intoxication in alcoholism, unspecified Tobacco use disorder Mild episode of recurrent major depressive disorder (HCC) SHAH (dyspnea on exertion) Other dyspnea and respiratory abnormality ROMIE (obstructive sleep apnea) Obstructive sleep apnea (adult) (pediatric) Need for vaccination Need for prophylactic vaccination and inoculation against unspecified single disease Screening for colon cancer Special screening for malignant neoplasms, colon Change in bowel habit Incurvated nail Other specified disease of nail [facility] Diagnosis Chronic obstructive pulmonary disease, unspecified COPD type (HCC)- Primary [facility] Diagnosis Tobacco use disorder SHAH (dyspnea on exertion) Other dyspnea and respiratory abnormality [facility] Diagnosis Tobacco use disorder SHAH (dyspnea on exertion) Other dyspnea and respiratory abnormality [facility] Diagnosis Tobacco use disorder SHAH (dyspnea on exertion) Other dyspnea and respiratory abnormality [facility] Diagnosis Chronic midline low back pain without sciatica [facility] Diagnosis Hypertension, essential- Primary Unspecified essential hypertension Hyperlipidemia, mixed Mixed hyperlipidemia Mild episode of recurrent major depressive disorder (HCC) Alcohol dependence with uncomplicated intoxication (HCC) Acute alcoholic intoxication in alcoholism, unspecified Prediabetes Other abnormal glucose Current use of proton pump inhibitor Encounter for long-term (current) use of other medications Screening for prostate cancer Special screening for malignant neoplasm of prostate Screening for lipid disorders [facility] Diagnosis Hypertension, essential Unspecified essential hypertension Mild episode of recurrent major depressive disorder (HCC) Prediabetes Other abnormal glucose [facility] Diagnosis Chronic midline low back pain without sciatica [facility] Diagnosis Hypertension, essential Unspecified essential hypertension Mild episode of recurrent major depressive disorder (HCC) [facility] Diagnosis Alcohol dependence with uncomplicated intoxication (HCC)- Primary Acute alcoholic intoxication in alcoholism, unspecified Mild episode of recurrent major depressive disorder (HCC) [facility] Diagnosis Alcohol dependence with uncomplicated intoxication (HCC)- Primary Acute alcoholic intoxication in alcoholism, unspecified Mild episode of recurrent major depressive disorder (HCC) [facility] Diagnosis Alcohol dependence with uncomplicated intoxication (HCC)- Primary Acute alcoholic intoxication in alcoholism, unspecified Mild episode of recurrent major depressive disorder (HCC) Hypertension, essential Unspecified essential hypertension Prediabetes Other abnormal glucose Hyperlipidemia, mixed Mixed hyperlipidemia GERD without esophagitis Esophageal reflux Obesity, Class III, BMI 40-49.9 (morbid obesity) (HCC) Morbid obesity [facility] Diagnosis Hyperlipidemia, mixed Mixed hyperlipidemia [facility] Diagnosis Prediabetes Other abnormal glucose [facility] Diagnosis Chronic midline low back pain without sciatica [facility] Diagnosis Encounter for screening for lung cancer- Primary Screening for colon cancer Special screening for malignant neoplasms, colon Hypertension, essential Unspecified essential hypertension Hyperlipidemia, mixed Mixed hyperlipidemia Alcohol dependence with uncomplicated intoxication (HCC) Acute alcoholic intoxication in alcoholism, unspecified Prediabetes Other abnormal glucose Incurvated nail Other specified disease of nail DDD (degenerative disc disease), lumbar Degeneration of lumbar or lumbosacral intervertebral disc Annual physical exam Routine general medical examination at a health care facility [facility] Diagnosis Encounter for screening for lung cancer- Primary Tobacco use current [facility] Diagnosis Positive colorectal cancer screening using Cologuard test- Primary Screening for colon cancer Special screening for malignant neoplasms, colon [facility] Diagnosis Hypertension, essential Unspecified essential hypertension Mild episode of recurrent major depressive disorder (HCC) Alcohol dependence with uncomplicated intoxication (HCC) Acute alcoholic intoxication in alcoholism, unspecified [facility] Diagnosis Positive colorectal cancer screening using Cologuard test Screening for colon cancer Special screening for malignant neoplasms, colon Tobacco use Tobacco use disorder [facility] Diagnosis Gastroesophageal reflux disease, unspecified whether esophagitis present- Primary [facility] Diagnosis Hypertension, essential- Primary Unspecified essential hypertension Mild episode of recurrent major depressive disorder (HCC) Alcohol dependence with uncomplicated intoxication (HCC) Acute alcoholic intoxication in alcoholism, unspecified Hyperlipidemia, mixed Mixed hyperlipidemia Tobacco abuse Tobacco use disorder Alcohol misuser in household Pulmonary emphysema, unspecified emphysema type (HCC) Primary hypertension Unspecified essential hypertension Pulmonary nodule Solitary pulmonary nodule Class 3 severe obesity due to excess calories with serious comorbidity in adult, unspecified BMI (HCC) Screening for prostate cancer Special screening for malignant neoplasm of prostate SHAH (dyspnea on exertion) Other dyspnea and respiratory abnormality Encounter for screening for cardiovascular disorders Screening for other and unspecified cardiovascular conditions [facility] Tobacco abuse Tobacco use disorder [facility] Tobacco abuse Tobacco use disorder [facility] Diagnosis Tobacco abuse Tobacco use disorder Pulmonary nodule Solitary pulmonary nodule [facility] Diagnosis Pulmonary nodules- Primary Other nonspecific abnormal finding of lung field [facility] Diagnosis Coronary artery calcification seen on CAT scan- Primary Coronary atherosclerosis of unspecified type of vessel, nome or graft SHAH (dyspnea on exertion) Other dyspnea and respiratory abnormality Hypertension, essential Unspecified essential hypertension Hyperlipidemia, mixed Mixed hyperlipidemia ROMIE on CPAP Obstructive sleep apnea (adult) (pediatric) [facility] Diagnosis Hypertension, essential Unspecified essential hypertension [facility] Diagnosis Tobacco use disorder [facility] Diagnosis Tobacco abuse Tobacco use disorder [facility] Diagnosis Lung nodules- Primary Other nonspecific abnormal finding of lung field [facility] Diagnosis Chronic midline low back pain without sciatica [facility] Diagnosis Lesion of liver- Primary Other specified disorders of liver [facility] Diagnosis SHAH (dyspnea on exertion) Other dyspnea and respiratory abnormality [facility] Diagnosis SHAH (dyspnea on exertion) Other dyspnea and respiratory abnormality Encounter for screening for cardiovascular disorders Screening for other and unspecified cardiovascular conditions [facility] Diagnosis Lung nodules Other nonspecific abnormal finding of lung field [facility] Diagnosis Cellulitis of skin- Primary Cellulitis and abscess of unspecified site Tobacco abuse Tobacco use disorder [facility] Diagnosis Lung nodule, multiple- Primary Other nonspecific abnormal finding of lung field Former tobacco use Personal history of tobacco use, presenting hazards to health Liver lesion Other specified disorders of liver Abnormal PET scan of liver Nonspecific abnormal results of liver function study Abnormal PET of right lung Nonspecific abnormal results of pulmonary system function study Hilar adenopathy Enlargement of lymph nodes [facility] Diagnosis Liver lesion- Primary Other specified disorders of liver Liver lesion Other specified disorders of liver Abnormal PET scan of liver Nonspecific abnormal results of liver function study [facility] Diagnosis 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 Liver lesion Other specified disorders of liver Abnormal PET scan of liver Nonspecific abnormal results of liver function study Abnormal PET of right lung Nonspecific abnormal results of pulmonary system function study Lung nodule, multiple Other nonspecific abnormal finding of lung field Hilar adenopathy Enlargement of lymph nodes 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) Secondary malignant neoplasm of liver Metastatic cancer to bone (HCC) Secondary malignant neoplasm of bone and bone marrow 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) Secondary and unspecified malignant neoplasm of intra-abdominal lymph nodes 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) Secondary malignant neoplasm of liver Metastatic cancer to bone (HCC) Secondary malignant neoplasm of bone and bone marrow 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) Secondary and unspecified malignant neoplasm of intra-abdominal lymph nodes [facility] Diagnosis 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) Secondary malignant neoplasm of liver Metastatic cancer to bone (HCC) Secondary malignant neoplasm of bone and bone marrow 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) Secondary and unspecified malignant neoplasm of intra-abdominal lymph nodes [facility] Diagnosis 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 Secondary and unspecified malignant neoplasm of intra-abdominal lymph nodes 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) Secondary malignant neoplasm of liver Metastatic cancer to bone (HCC) Secondary malignant neoplasm of bone and bone marrow 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) [facility] Diagnosis Encounter for education- Primary Counseling NOS [facility] Diagnosis 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 [facility] Diagnosis Urinary frequency- Primary Hypertension, essential Unspecified essential hypertension Benign prostatic hyperplasia with urinary frequency 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) Secondary malignant neoplasm of liver [facility] Diagnosis 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 Secondary and unspecified malignant neoplasm of intra-abdominal lymph nodes Metastatic cancer to bone (HCC) Secondary malignant neoplasm of bone and bone marrow 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) Secondary malignant neoplasm of liver 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) [facility] Diagnosis 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 Secondary and unspecified malignant neoplasm of intra-abdominal lymph nodes Metastatic cancer to bone (HCC) Secondary malignant neoplasm of bone and bone marrow 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) Secondary malignant neoplasm of liver 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) [facility] Diagnosis 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)- Primary Secondary malignant neoplasm of liver Metastatic cancer to bone (HCC) Secondary malignant neoplasm of bone and bone marrow 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) Secondary and unspecified malignant neoplasm of intra-abdominal lymph nodes 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) [facility] Diagnosis 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 Secondary and unspecified malignant neoplasm of intra-abdominal lymph nodes Metastatic cancer to bone (HCC) Secondary malignant neoplasm of bone and bone marrow 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) Secondary malignant neoplasm of liver 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) [facility] Diagnosis 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) Secondary malignant neoplasm of liver Metastatic cancer to bone (HCC) Secondary malignant neoplasm of bone and bone marrow [facility] Diagnosis 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) Secondary malignant neoplasm of liver Metastatic cancer to bone (HCC) Secondary malignant neoplasm of bone and bone marrow [facility] Diagnosis 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) Secondary malignant neoplasm of liver Metastatic cancer to bone (HCC) Secondary malignant neoplasm of bone and bone marrow 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) Secondary and unspecified malignant neoplasm of intra-abdominal lymph nodes [facility] Diagnosis SHAH (dyspnea on exertion) Other dyspnea and respiratory abnormality [facility] Diagnosis 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 Secondary and unspecified malignant neoplasm of intra-abdominal lymph nodes Metastatic cancer to bone (HCC) Secondary malignant neoplasm of bone and bone marrow 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) Secondary malignant neoplasm of liver 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) [facility] Diagnosis Pulmonary emphysema, unspecified emphysema type (HCC) [facility]* Diagnosis Thumb weakness Other malaise and fatigue [facility] Diagnosis Skin infection- Primary Unspecified local infection of skin and subcutaneous tissue Encounter for screening examination for other mental health and behavioral disorders Encounter for immunization Need for other specified prophylactic vaccination against single bacterial disease Hypertension, essential Unspecified essential hypertension Coronary artery calcification seen on CAT scan Coronary atherosclerosis of unspecified type of vessel, nome or graft 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) Secondary malignant neoplasm of liver Metastatic cancer to bone (HCC) Secondary malignant neoplasm of bone and bone marrow Prediabetes Other abnormal glucose [facility] Diagnosis 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 Orthostatic hypotension [facility] Diagnosis 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) Secondary malignant neoplasm of liver Metastatic cancer to bone (HCC) Secondary malignant neoplasm of bone and bone marrow 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) Secondary and unspecified malignant neoplasm of intra-abdominal lymph nodes [facility] Diagnosis 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 Secondary and unspecified malignant neoplasm of intra-abdominal lymph nodes Metastatic cancer to bone (HCC) Secondary malignant neoplasm of bone and bone marrow 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) Secondary malignant neoplasm of liver 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) [facility] Diagnosis Acquired hypothyroidism- Primary Unspecified hypothyroidism [facility] Diagnosis 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 Secondary and unspecified malignant neoplasm of intra-abdominal lymph nodes Metastatic cancer to bone (HCC) Secondary malignant neoplasm of bone and bone marrow 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) Secondary malignant neoplasm of liver 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) [facility] Diagnosis 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 Malignant neoplasm of unspecified part of unspecified bronchus or lung (HCC) 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) Secondary and unspecified malignant neoplasm of intra-abdominal lymph nodes [facility] Diagnosis Acquired hypothyroidism Unspecified hypothyroidism [facility] Diagnosis 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 Secondary and unspecified malignant neoplasm of intra-abdominal lymph nodes Metastatic cancer to bone (HCC) Secondary malignant neoplasm of bone and bone marrow 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) Secondary malignant neoplasm of liver 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) [facility] Diagnosis 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 Secondary and unspecified malignant neoplasm of intra-abdominal lymph nodes Metastatic cancer to bone (HCC) Secondary malignant neoplasm of bone and bone marrow 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) Secondary malignant neoplasm of liver 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) [facility] Diagnosis 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 Secondary and unspecified malignant neoplasm of intra-abdominal lymph nodes Metastatic cancer to bone (HCC) Secondary malignant neoplasm of bone and bone marrow 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) Secondary malignant neoplasm of liver 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) [facility] Diagnosis Chronic midline low back pain without sciatica [facility] Diagnosis Malignant neoplasm of unspecified part of unspecified bronchus or lung (HCC) [facility] Diagnosis 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) Secondary malignant neoplasm of liver Metastatic cancer to bone (HCC) Secondary malignant neoplasm of bone and bone marrow 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) Secondary and unspecified malignant neoplasm of intra-abdominal lymph nodes Macrocytic anemia Unspecified deficiency anemia Psoriasis Other psoriasis Acquired hypothyroidism Unspecified hypothyroidism [facility] Diagnosis 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)- Primary Secondary malignant neoplasm of liver Metastatic cancer to bone (HCC) Secondary malignant neoplasm of bone and bone marrow 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) Secondary and unspecified malignant neoplasm of intra-abdominal lymph nodes 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) [facility] Diagnosis Benign prostatic hyperplasia with urinary frequency [facility] Diagnosis Paroxysmal atrial fibrillation (HCC)- Primary Atrial fibrillation Generalized edema Edema Chronic low back pain with sciatica, sciatica laterality unspecified, unspecified back pain laterality Iron deficiency anemia due to chronic blood loss Iron deficiency anemia secondary to blood loss (chronic) [facility] Diagnosis 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) Secondary malignant neoplasm of liver Metastatic cancer to bone (HCC) Secondary malignant neoplasm of bone and bone marrow [facility]* Diagnosis ROMIE (obstructive sleep apnea)- Primary Obstructive sleep apnea (adult) (pediatric) Chronic low back pain with sciatica, sciatica laterality unspecified, unspecified back pain laterality Bilateral low back pain, unspecified chronicity, unspecified whether sciatica present Paroxysmal atrial fibrillation (HCC) Atrial fibrillation Generalized edema Edema Prediabetes Other abnormal glucose Skin tear of hand without complication, sequela [facility] Diagnosis Current mild episode of major depressive disorder, unspecified whether recurrent (HCC)- Primary [facility] Diagnosis 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) Secondary malignant neoplasm of liver Metastatic cancer to bone (HCC) Secondary malignant neoplasm of bone and bone marrow 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) Secondary and unspecified malignant neoplasm of intra-abdominal lymph nodes 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 [facility] Diagnosis 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 Secondary and unspecified malignant neoplasm of intra-abdominal lymph nodes Metastatic cancer to bone (HCC) Secondary malignant neoplasm of bone and bone marrow 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) Secondary malignant neoplasm of liver 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) [facility] Diagnosis 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) Secondary malignant neoplasm of liver Metastatic cancer to bone (HCC) Secondary malignant neoplasm of bone and bone marrow 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) Secondary and unspecified malignant neoplasm of intra-abdominal lymph nodes [facility] Diagnosis 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) Secondary malignant neoplasm of liver Metastatic cancer to bone (HCC) Secondary malignant neoplasm of bone and bone marrow 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) Secondary and unspecified malignant neoplasm of intra-abdominal lymph nodes 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 [facility] Diagnosis 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 Secondary and unspecified malignant neoplasm of intra-abdominal lymph nodes Metastatic cancer to bone (HCC) Secondary malignant neoplasm of bone and bone marrow 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) Secondary malignant neoplasm of liver 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) [facility] Diagnosis ROMIE (obstructive sleep apnea)- Primary Obstructive sleep apnea (adult) (pediatric) Obstructive sleep apnea on CPAP Obstructive sleep apnea (adult) (pediatric) Intolerance of continuous positive airway pressure (CPAP) ventilation 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) Obesity, Class III, BMI 40-49.9 (morbid obesity) (HCC) Morbid obesity [facility] Diagnosis Lesion of liver Other specified disorders of liver [facility] Diagnosis Acquired hypothyroidism Unspecified hypothyroidism [facility] Diagnosis 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) Secondary malignant neoplasm of liver Metastatic cancer to bone (HCC) Secondary malignant neoplasm of bone and bone marrow 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) Secondary and unspecified malignant neoplasm of intra-abdominal lymph nodes 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 [facility] Diagnosis Hyperlipidemia, mixed Mixed hyperlipidemia [facility] Diagnosis Hyperlipidemia, mixed Mixed hyperlipidemia [facility] Diagnosis 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 Secondary and unspecified malignant neoplasm of intra-abdominal lymph nodes Metastatic cancer to bone (HCC) Secondary malignant neoplasm of bone and bone marrow 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) Secondary malignant neoplasm of liver 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) [facility] Diagnosis Malignant neoplasm of unspecified part of unspecified bronchus or lung (HCC)- Primary 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) Secondary and unspecified malignant neoplasm of intra-abdominal lymph nodes Metastatic cancer to bone (HCC) Secondary malignant neoplasm of bone and bone marrow 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) Secondary malignant neoplasm of liver [facility] Diagnosis 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) Secondary and unspecified malignant neoplasm of intra-abdominal lymph nodes Metastatic cancer to bone (HCC) Secondary malignant neoplasm of bone and bone marrow 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) Secondary malignant neoplasm of liver [facility] Diagnosis Prediabetes- Primary Other abnormal glucose Benign prostatic hyperplasia with urinary frequency Hypertension, essential Unspecified essential hypertension Hyperlipidemia, mixed Mixed hyperlipidemia Coronary artery calcification seen on CAT scan Coronary atherosclerosis of unspecified type of vessel, nome or graft 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) Secondary malignant neoplasm of liver Degeneration of intervertebral disc of lumbar region, unspecified whether pain present Alcohol dependence with uncomplicated intoxication (HCC) Acute alcoholic intoxication in alcoholism, unspecified Diarrhea, unspecified type [facility] Diagnosis Malignant neoplasm of unspecified part of unspecified bronchus or lung (HCC) [facility] Diagnosis 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) Secondary malignant neoplasm of liver Metastatic cancer to bone (HCC) Secondary malignant neoplasm of bone and bone marrow 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) Secondary and unspecified malignant neoplasm of intra-abdominal lymph nodes [facility] Diagnosis 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) Secondary and unspecified malignant neoplasm of intra-abdominal lymph nodes Metastatic cancer to bone (HCC) Secondary malignant neoplasm of bone and bone marrow 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) Secondary malignant neoplasm of liver [facility] Diagnosis 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) Secondary malignant neoplasm of liver Metastatic cancer to bone (HCC) Secondary malignant neoplasm of bone and bone marrow [facility] Diagnosis ROMIE (obstructive sleep apnea)- Primary Obstructive sleep apnea (adult) (pediatric) Intolerance of continuous positive airway pressure (CPAP) ventilation [facility] Diagnosis Blood glucose elevated- Primary Other abnormal glucose [facility]* Diagnosis Hypertension, essential Unspecified essential hypertension [facility]* Diagnosis 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) Secondary malignant neoplasm of liver Metastatic cancer to bone (HCC) Secondary malignant neoplasm of bone and bone marrow 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) Secondary and unspecified malignant neoplasm of intra-abdominal lymph nodes [facility] Diagnosis 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) Secondary and unspecified malignant neoplasm of intra-abdominal lymph nodes [facility] Diagnosis 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) Secondary malignant neoplasm of liver Metastatic cancer to bone (HCC) Secondary malignant neoplasm of bone and bone marrow 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) Secondary and unspecified malignant neoplasm of intra-abdominal lymph nodes [facility] Diagnosis 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) Secondary and unspecified malignant neoplasm of intra-abdominal lymph nodes Metastatic cancer to bone (HCC) Secondary malignant neoplasm of bone and bone marrow 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) Secondary malignant neoplasm of liver [facility] Diagnosis 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) Secondary and unspecified malignant neoplasm of intra-abdominal lymph nodes Metastatic cancer to bone (HCC) Secondary malignant neoplasm of bone and bone marrow 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) Secondary malignant neoplasm of liver documented in this encounter [facility] note* Diagnosis 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) Secondary malignant neoplasm of liver Metastatic cancer to bone (HCC) Secondary malignant neoplasm of bone and bone marrow documented in this encounter [facility] for referral (narrative)* Outpatient Procedure (Routine) - Pending Review Specialty Diagnoses / Procedures Referred By Contac t Referred To [facility] Diagnoses Tobacco use disorder SHAH (dyspnea on exertion) Procedures SPIROMETRY WITH DILATOR IF OBSTRUCTED BRNCDILAT RSPSE SPMTRY PRE&POST-BRNCDILAT ADMN Casey Hernandez PA-C [address] [place] [address] [facility] [place] [address] [place] [address] Referral ID Status Reason Start Date Expiration Date Visits Requested Visits Authorized [id number] Pending Review Auto-Generat ed Referral 02/01/2022 03/03/2023 1 1 * Outpatient Procedure (Routine) - Pending Review Specialty Diagnoses / Procedures Referred By Contac t Referred To [facility] [place] Diagnoses Tobacco use disorder SHAH (dyspnea on exertion) Procedures LUNG DIFFUSION CAPACITY (DLCO) DIFFUSING CAPACITY Casey Hernandez PA-C [address] [place] [address] [facility] [place] [address] Referral ID Status Reason Start Date Expiration Date Visits Requested Visits Authorized [id number] Pending Review Auto-Generat ed Referral 02/01/2022 03/03/2023 1 1 * Outpatient Procedure (Routine) - Pending Review Specialty Diagnoses / Procedures Referred By Contac t Referred To Contact [facility] Diagnoses Tobacco use disorder SHAH (dyspnea on exertion) Procedures LUNG VOLUMES Casey Hernandez PA-C [address] [place] [address] [facility] [address] [place] [id number] Referral ID Status Reason Start Date Expiration Date Visits Requested Visits Authorized [id number] Pending Review Auto-Generat ed Referral 02/01/2022 03/03/2023 1 1 [facility] for referral (narrative)* Outpatient Procedure (Routine) - Pending Review Specialty Diagnoses / Procedures Referred By Contac t Referred To Contact DIGESTIVE DISEASE [facility] Diagnoses Tobacco use Procedures COLONOSCOPY DIAGNOSTIC COLONOSCOPY FLX DX W/COLLJ SPEC WHEN PFRMD Trisha Malcolm MD [address] [place] [address] [address] Referral ID Status Reason Start Date Expiration Date Visits Requested Visits Authorized [id number] Pending Review Auto-Generat ed Referral 3 04/18/2024 1 1 [facility] for referral (narrative)* Outpatient Procedure (Routine) - Pending Review Specialty Diagnoses / Procedures [facility] DISEASE [facility] Diagnoses Gastroesophageal reflux disease, unspecified whether esophagitis present Procedures EGD DIAGNOSTIC ESOPHAGOGASTRODUODENOSC OPY TRANSORAL DIAGNOSTIC Trisha Malcolm MD [address] [place] [address] [address] Referral ID Status Reason Start Date Expiration Date Visits Requested Visits Authorized [id number] Pending Review Auto-Generat ed Referral 3 05/01/2024 1 1 [facility] for referral (narrative)* Diagnostic Procedure Only (Routine) - Pending Review Specialty Diagnoses / Procedures Referred By Contac t Referred To Contact MOLECULAR & FUNCTIONAL IMAGING Diagnoses SHAH (dyspnea on exertion) Encounter for screening for cardiovascular disorders Procedures NM CARDIAC PERF STRESS/PHARM MYOCARDIAL SPECT MULTIPLE STUDIES Tyra Martell APRN.CNS [address] [place] [address] Molecular [facility] [address] [id number] Referral ID Status Reason Start Date Expiration Date Visits Requested Visits Authorized [id number] Pending Review Auto-Generat ed Referral 08/29/2023 09/27/2024 1 1 * Outpatient Procedure (Routine) - Pending Review Specialty Diagnoses / Procedures Referred By Contac t Referred To Contact [facility] Diagnoses Tobacco abuse Alcohol misuser in household SHAH (dyspnea on exertion) Procedures ECG COMPLETE ECG ROUTINE ECG W/LEAST 12 LDS W/I&R Tyra Martell APRN.SOLE TACKER [address] [place] [address] [facility] [address] [place] [address] Referral ID Status Reason Start Date Expiration Date Visits Requested Visits Authorized [id number] Pending Review Auto-Generat ed Referral 08/29/2023 08/28/2024 1 1 * Diagnostic Procedure Only (Routine) - Authorized Specialty Diagnoses / Procedures Referred By Contac t Referred To Contact US IMAGING Diagnoses Tobacco abuse Procedures US SCREENING FOR AAA (2017) US ABDOMINAL AORTA REAL TIME SCREEN STUDY AAA Tyra Martell APRN.CNS [address] [place] [address] [place] [address] Referral ID Status Reason Start Date Expiration Date Visits Requested Visits Authorized [id number] Authorized Auto-Generat ed Referral 08/29/2023 09/27/2024 1 1 * MRI/CT (Routine) - Open Specialty Diagnoses / Procedures Referred By Wadeac t Referred To Contact CT IMAGING Diagnoses Tobacco abuse Pulmonary nodule Procedures CT CHEST WO IVCON DIAGNOSTIC COMPUTED TOMOGRAPHY THORAX W/O CNTRST Tyra aMrtell APRN.CNS [address] [facility] [place] [address] Ct Imaging [id number] Referral ID Status Reason Start Date Expiration Date V isits Requested Visits Authorized [id number] Open Auto-Generate d Referral 09/05/2023 09/27/2024 1 1 [facility] for referral (narrative)* Diagnostic Procedure Only (Routine) - Pending Review Specialty Diagnoses / Procedures Referred By Kendall t Referred To Contact MOLECULAR & FUNCTIONAL IMAGING Diagnoses Lung nodules Procedures NM PET/CT SKULL-THIGH INITIAL PET IMAGING CT ATTENUATION SKULL BASE MID-THIGH Anitra Mcduffie APRN.LAMINATION 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 [address] [id number] Molecular [facility] Functional Imaging [address] [id number] Referral ID Status Reason Start Date Expiration Date Visits Requested Visits Authorized [id number] Pending Review Auto-Generat ed Referral 11/07/2023 12/06/2024 1 1 * Outpatient Procedure (Routine) - Pending Review Specialty Diagnoses / Procedures [facility] Diagnoses Lung nodules Procedures LUNG DIFFUSION CAPACITY (DLCO) DIFFUSING CAPACITY Anitra Mcduffie APRN.CNP [address] [place] [address] [facility] [address] [phone] Referral ID Status Reason Start Date Expiration Date Visits Requested Visits Authorized [id number] Pending Review Auto-Generat ed Referral 11/07/202312/06/2024 1 1 * Outpatient Procedure (Routine) - Pending Review Specialty Diagnoses / Procedures Referred By Contac t Referred To [facility] Diagnoses Lung nodules Procedures LUNG VOLUMES Anitra Mcduffie APRN.LAMINATION 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 [address] [phone] [place] [phone] Referral ID Status Reason Start Date Expiration Date Visits Requested Visits Authorized [id number] Pending Review Auto-Generat ed Referral 11/07/2023 12/06/2024 1 1 * Outpatient Procedure (Routine) - Pending Review Specialty Diagnoses / Procedures Referred By Contac t Referred To [facility] Diagnoses Lung nodules Procedures SIX MINUTE WALK CARDIOPULMONARY EXERCISE STRESS Anitra Mcduffie APRN.LAMINATION 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 [address] [phone] [place] [phone] Referral ID Status Reason Start Date Expiration Date Visits Requested Visits Authorized [id number] Pending Review Auto-Generat ed Referral 11/07/2023 12/06/2024 1 1 * Outpatient Procedure (Routine) - Pending Review Specialty Diagnoses / Procedures Referred By Contac t Referred To [facility]ORY [facility] Diagnoses Lung nodules Procedures SPIROMETRY WITH DILATOR IF OBSTRUCTED BRNCDILAT RSPSE SPMTRY PRE&POST-BRNCDILAT ADMN Anitra Mcduffie APRN.LAMINATION 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 [address] [place] [address] [address] Referral ID Status Reason Start Date Expiration Date Visits Requested Visits Authorized [id number] Pending Review Auto-Generat ed Referral 11/07/2023 12/06/2024 1 1 * Diagnostic Procedure Only (Routine) - Pending Review Specialty Diagnoses / Procedures Referred By Contac t Referred To Contact MOLECULAR & FUNCTIONAL IMAGING Diagnoses Lung nodules Procedures NM PET/CT SKULL-THIGH INITIAL PET IMAGING CT ATTENUATION SKULL BASE MID-THIGH Anitra Mcduffie APRN.LAMINATION 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 [address] [place] [address] Molecular [facility] [address] [phone] Referral ID Status Reason Start Date Expiration Date Visits Requested Visits Authorized [id number] Pending Review Auto-Generat ed Referral 11/02/2023 12/01/2024 1 1 * Outpatient Procedure (Routine) - Pending Review Specialty Diagnoses / Procedures Referred By Contac t Referred To Contact [facility] Diagnoses Lung nodules Procedures LUNG DIFFUSION CAPACITY (DLCO) DIFFUSING CAPACITY Anitra Mcduffie APRN.LAMINATION 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 [address] [place] [address] [facility] [address] [place] [phone] Referral ID Status Reason Start Date Expiration Date Visits Requested Visits Authorized [id number] Pending Review Auto-Generat ed Referral 11/02/2023 12/01/2024 1 1 * Outpatient Procedure (Routine) - Pending Review Specialty Diagnoses / Procedures Referred By Contac t Referred To [facility] Diagnoses Lung nodules Procedures LUNG VOLUMES Anitra Mcduffie APRN.LAMINATION 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 [address] [place] [address] [facility] [address] [place] [address] Referral ID Status Reason Start Date Expiration Date Visits Requested Visits Authorized [id number] Pending Review Auto-Generat ed Referral 11/02/2023 12/01/2024 1 1 * Outpatient Procedure (Routine) - Pending Review Specialty Diagnoses / Procedures Referred By Contac t Referred To Contact [facility] Diagnoses Lung nodules Procedures SIX MINUTE WALK CARDIOPULMONARY EXERCISE STRESS Anitra Mcduffie APRN.CNP [address] [place] [address] [facility] [address] [place] [address] Referral ID Status Reason Start Date Expiration Date Visits Requested Visits Authorized [id number] Pending Review Auto-Generat ed Referral 11/02/2023 12/01/2024 1 1 * Outpatient Procedure (Routine) - Pending Review Specialty Diagnoses / Procedures Referred By Wadeac t Referred To Contact [facility] Diagnoses Lung nodules Procedures SPIROMETRY WITH DILATOR IF OBSTRUCTED BRNCDILAT RSPSE SPMTRY PRE&POST-BRNCDILAT ADMN Anitra Mcduffie APRN.LAMINATION 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 [address] [place] [address] [facility] [address] [place] [address] Referral ID Status Reason Start Date Expiration Date Visits Requested Visits Authorized [id number] Pending Review Auto-Generat ed Referral 11/02/2023 12/01/2024 1 1 [facility] for referral (narrative)* Diagnostic Procedure Only (Routine) - Closed Specialty Diagnoses / Procedures Referred By Kendall t Referred To Contact MOLECULAR & FUNCTIONAL IMAGING Diagnoses SHAH (dyspnea on exertion) Encounter for screening for cardiovascular disorders Procedures NM CARDIAC PERF STRESS/PHARM MYOCARDIAL SPECT MULTIPLE STUDIES CV STRS TST XERS&/OR RX CONT ECG W/O I&R CV STRS TST XERS&/OR RX CONT ECG W/SI&R CV STRS TST XERS&/OR RX CONT ECG I&R ONLY Tyra Martell SEASONER HAND.[facility] [address] [place] [address] Molecular & Functional Imaging [address] [place] [address] Referral ID Status Reason Start Date Expiration Date V isits Requested Visits Authorized [id number] Closed Auto-Generate d Referral 10/30/2023 05/21/2024 3 3 [facility] for referral (narrative)No reason for referral information [facility]WC[facility] Work Phone: Reason for visit Narrative* Diagnostic Procedure Only (Routine) - Closed Specialty Diagnoses / Procedures Referred By Contac t Referred To Contact MOLECULAR & FUNCTIONAL IMAGING Diagnoses SHAH (dyspnea on exertion) Encounter for screening for cardiovascular disorders Procedures NM CARDIAC PERF STRESS/PHARM MYOCARDIAL SPECT MULTIPLE STUDIES CV STRS TST XERS&/OR RX CONT ECG W/O I&R CV STRS TST XERS&/OR RX CONT ECG W/SI&R CV STRS TST XERS&/OR RX CONT ECG I&R ONLY Tyra Martell SEASONER HAND.SOLE TACKER [address] [place] [address] Molecular & Functional Imaging [address] [place] [address] Referral ID Status Reason Start Date Expiration Date V isits Requested Visits Authorized [id number] Closed Auto-Generate d Referral 10/30/2023 05/21/2024 3 3 [facility] for visit Narrative* Diagnostic Procedure Only (Routine) - Closed Specialty Diagnoses / Procedures Referred By Contac t Referred To Contact MOLECULAR & FUNCTIONAL IMAGING Diagnoses Lung nodules Procedures NM PET/CT SKULL-THIGH INITIAL PET IMAGING CT ATTENUATION SKULL BASE MID-THIGH Anitra Mcduffie, MOIZ.LAMINATION 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 [address] [place] [address] Molecular [facility] Functional Imaging [address] [place] [address] Referral ID Status Reason Start Date Expiration Date Visits Re quested Visits Authorized [id number] Closed 11/08/2023 05/21/2024 2 2 [facility] for visit Narrative* MRI/CT (Routine) - Closed Specialty Diagnoses / Procedures Referred By Contac t Referred To Contact CT IMAGING Diagnoses 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) Metastatic cancer to bone (HCC) 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) Procedures CT ABD/PEL W IVCON CT ABD & PELVIS W/CONTRAST Corazon Renteria DO [address] [place] [place] [address] Phone: tel: fax: [place] [address] Referral ID Status Reason Start Date Expiration Date V isits Requested Visits Authorized [id number] Closed Auto-Generate d Referral 06/24/2024 05/21/2025 2 2 [facility] for visit Narrative* MRI/CT (Routine) - Closed Specialty Diagnoses / Procedures [facility] To Contact MR IMAGING Diagnoses Lesion of liver Procedures MRI LIVER WO/W IVCON MRI ABDOMEN W/O & W/CONTRAST MATERIAL Tyra Martell, SEASONER HAND.LAMINATION 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 [address] [place] [address] Phone: tel: fax: [place] [address] Referral ID Status Reason Start Date Expiration Date V isits Requested Visits Authorized [id number] Closed Auto-Generate d Referral 11/17/2023 11/28/2024 1 1 [facility] for visit Narrative* MRI/CT (Routine) - Closed Specialty Diagnoses / Procedures Referred By Contac t Referred To Contact CT IMAGING Diagnoses Malignant neoplasm of unspecified part of unspecified bronchus or lung (HCC) Procedures CT ABD/PEL W IVCON CT ABD & PELVIS W/CONTRAST Angelic Flores [address] [place] [address] Phone: tel: fax: [place] [address] Referral ID Status Reason Start Date Expiration Date V isits Requested Visits Authorized [id number] Closed Auto-Generate d Referral 10/09/2024 10/09/2025 1 1 [facility] for visit Narrative* Diagnostic Procedure Only (Routine) - Closed Specialty Diagnoses / Procedures Referred By Contac t Referred To Contact MOLECULAR & FUNCTIONAL IMAGING Diagnoses 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) Metastatic cancer to bone (HCC) 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) Procedures NM PET/CT SKULL-THIGH SUBSEQUENT PET IMAGING CT ATTENUATION SKULL BASE MID-THIGH Corazon Renteria, DO [address] [place] [address] Phone: tel: fax: Molecular Imaging [address] [place] [address] Phone: tel: Referral ID Status Reason Start Date Expiration Date V isits Requested Visits Authorized [id number] Closed Auto-Generate d Referral 11/04/2024 05/21/2025 2 2 [facility] Diagnostic Procedure Only (Routine) - Closed Specialty Diagnoses / Procedures Referred By Wadeac t Referred To Contact Radiology / RADIO PET CT MOBILE GOTTLIEB Diagnoses 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) Metastatic cancer to bone (HCC) 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) NM PET/CT SKULL-THIGH SUBSEQUENT 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] 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) [C78.7] Metastatic cancer to bone (HCC) [C79.51] 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] Procedures PET IMAGING CT ATTENUATION SKULL BASE MID-THIGH PET CT Corazon Renteria, [address] [place] [address] Phone: tel: fax: Mobile PET CT [address] [place] [address] Referral ID Status Reason Start Date Expiration Date Visits Re quested Visits Authorized [id number] Closed 11/19/2024 05/21/2025 2 2 [facility] Reason for Referral Specialty Diagnoses / Procedures Referred By Kendall t Referred To Contact Podiatry Diagnoses Incurvated nail Procedures CONSULT TO PODIATRY OFFICE/OUTPATIENT [facility] 60-74 MINUTES Casey Hernandez PA-C [address] [place] [address] Referral ID Status Reason Start Date Expiration Date Visits Requested Visits Authorized [id number] Authorized PCP Requested Referral 02/23/2023 02/23/2024 1 1 Specialty Diagnoses / Procedures Referred By Kendall t Referred To Contact CT IMAGING Diagnoses Tobacco use disorder Procedures CT LUNG SCREEN WO IVCON COMPUTED TOMOGRAPHY THORAX LW DOSE LNG CA SCR C- Anitra Mcduffie, SEASONER HAND.LAMINATION 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 [address] [place] [address] [facility] [place] [address] Referral ID Status Reason Start Date Expiration Date V isits Requested Visits Authorized [id number] Open Auto-Generate d Referral 03/21/2023 04/19/2024 1 1 Specialty Diagnoses / Procedures Referred By Kendall t Referred To Contact General Surgery Diagnoses Positive colorectal cancer screening using Cologuard test Screening for colon cancer Procedures CONSULT TO GENERAL SURGERY OFFICE/OUTPATIENT [facility] MDM 60-74 MINUTES Casey Hernandez PA-C [address] [place] [id number] Referral ID Status Reason Start Date Expiration Date Visits Requested Visits Authorized [id number] Authorized PCP Requested Referral 03/22/2023 03/21/2024 1 1 Specialty Diagnoses / Procedures Referred By Kendall t Referred To Contact MR IMAGING Diagnoses Lesion of liver Procedures MRI LIVER WO/W IVCON MRI ABDOMEN W/O & W/CONTRAST MATERIAL Tyra Martell SEASONER HAND.SOLE TACKER [address] [place] [address] [facility] [place] [address] Referral ID Status Reason Start Date Expiration Date Visits Requested Visits Authorized [id number] Pending Review Auto-Generat ed Referral 11/29/2023 11/28/2024 1 1 Specialty Diagnoses / Procedures Referred By Kendall t Referred To Contact Diagnoses Liver lesion Abnormal PET scan of liver Abnormal PET of right lung Lung nodule, multiple Hilar adenopathy Procedures CONSULT TO HEMATOLOGY/ONCOLOGY OFFICE/OUTPATIENT [facility]DM 60 MINUTES Anitra Mcduffie, SEASONER HAND.LAMINATION 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 [address] [place] [address] Referral ID Status Reason Start Date Expiration Date Visits Requested Visits Authorized [id number] Authorized PCP Requested Referral 12/18/2023 03/17/2024 1 1 Specialty Diagnoses / Procedures [facility] To Contact MR IMAGING Diagnoses 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) Metastatic cancer to bone (HCC) 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) Procedures MRI BRAIN WO/W IVCON MRI BRAIN BRAIN STEM W/O W/CONTRAST MATERIAL Corazon Renteria, DO [address] [place] [address] [place] [address] Referral ID Status Reason Start Date Expiration Date V isits Requested Visits Authorized [id number] Closed Auto-Generate d Referral 01/12/2024 05/21/2024 1 1 Specialty Diagnoses / Procedures [facility] Referred To Contact MR IMAGING Diagnoses Liver lesion Abnormal PET scan of liver Abnormal PET of right lung Lung nodule, multiple Hilar adenopathy 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) Procedures CT CHEST W IVCON DIAGNOSTIC COMPUTED TOMOGRAPHY THORAX W/CONTRAST Koffi Huerta APRN.LAMINATION 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 [address] [place] [address] [place] [address] Referral ID Status Reason Start Date Expiration Date Visits Requested Visits Authorized [id number] Authorized Auto-Generat ed Referral 4 03/05/2024 1 1 Specialty Diagnoses / Procedures Referred By Contac t Referred To Contact CT IMAGING Diagnoses 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) Metastatic cancer to bone (HCC) 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) Procedures CT ABD/PEL W IVCON CT ABD & PELVIS W/CONTRAST Koffi Huerta APRN.LAMINATION 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 [address] [place] [address] [place] [address] Referral ID Status Reason Start Date Expiration Date Visits Requested Visits Authorized [id number] Authorized Auto-Generat ed Referral 4 03/05/2024 1 1 Specialty Diagnoses / Procedures Referred By Contac t Referred To Contact CT IMAGING Diagnoses Malignant neoplasm of unspecified part of unspecified bronchus or lung (HCC) Procedures CT CHEST W IVCON DIAGNOSTIC COMPUTED TOMOGRAPHY THORAX W/CONTRAST Angelic Flores [address] [facility] [place] [place] [address] [place] [address] Referral ID Status Reason Start Date Expiration Date Visits Requested Visits Authorized [id number] Authorized Auto-Generat ed Referral 4 04/15/2024 1 1 Specialty Diagnoses / Procedures Referred By Contac t Referred To Contact CT IMAGING Diagnoses Malignant neoplasm of unspecified part of unspecified bronchus or lung (HCC) Procedures CT ABD/PEL W IVCON CT ABD & PELVIS W/CONTRAST Angelic Flores [address] [facility] [place] [address] [place] [address] Referral ID Status Reason Start Date Expiration Date Visits Requested Visits Authorized [id number] Authorized Auto-Generat ed Referral 4 04/15/2024 1 1 Specialty Diagnoses / Procedures Referred By Contac t Referred To Contact Diagnoses ROMIE (obstructive sleep apnea) Procedures CONSULT TO SLEEP MEDICINE - ADULT OFFICE/OUTPATIENT [facility] 60 MINUTES Tyra Martell APRN.LAMINATION 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 [address] [place] [address] Referral ID Status Reason Start Date Expiration Date Visits Requested Visits Authorized [id number] Authorized PCP Requested Referral 05/31/2024 05/31/2025 1 1 Specialty Diagnoses / Procedures [facility] Ref[facility] To Contact CT IMAGING Diagnoses 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) Metastatic cancer to bone (HCC) 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) Procedures CT ABD/PEL W IVCON CT ABD & PELVIS W/CONTRAST Corazon Renteria, DO [address] [place] [address] [place] [address] Referral ID Status Reason Start Date Expiration Date Visits Requested Visits Authorized [id number] Pending Review Auto-Generat ed Referral 06/17/2024 07/17/2025 1 1 Specialty Diagnoses / Procedures Referred By Kendall t Referred To Contact CT IMAGING Diagnoses 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) Metastatic cancer to bone (HCC) 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) Procedures CT CHEST W IVCON DIAGNOSTIC COMPUTED TOMOGRAPHY THORAX W/CONTRAST Corazon Renteria, DO [address] [place] [address] [place] [address] Referral ID Status Reason Start Date Expiration Date Visits Requested Visits Authorized [id number] Pending Review Auto-Generat ed Referral 06/17/2024 07/17/2025 1 1 Summary Purpose Family History No Family History Records Found Relationship Condition Age at Onset Recorded Date/T luisa Not Specified Cardiac disease Unknown Advance Directives No Advanced Directives Records Found Advance Directive Response Recorded Date/ Time Living Will No April 30 2 024 3:06pm Do you have a Healthcare Power of Air Bag Curer? No April 30, 2024 3:06pm Advance Directives No April 3:34pm Chief Complaint and Reason for Visit Chief Complaint Admit Date SOB April 30, 2024 12:57pm Shortness of breath April 30, 2024 2:46pm Shortness of breath May 01, 2024 12:03am Shortness of breath May 02, 2024 1:45pm ROMIE August 02, 2024 8:0 0pm Reason for Visit Admit Date CHF (congestive heart failure) April 30, 2024 12:57pm Hypoxia April 30, 2024 12:57pm Additional Source Comments Source Comments (unrecognize d section and content) In the event this informatio n is protected by the Federal Confidentiality of Alcohol and Drug Abuse Patient Records regulations: The Federal rules restrict any use of the information to criminally investigate or prosecute any alcohol or drug abuse patient.[facility] the event this information is protected by the Federal Confidentiality of Alcohol and Drug Abuse Patient Records regulations: The Federal rules restrict any use of the information to criminally investigate or prosecute any alcohol or drug abuse patient.[facility] the event this information is protected by the Federal Confidentiality of Alcohol and Drug Abuse Patient Records regulations: The Federal rules restrict any use of the information to criminally investigate or prosecute any alcohol or drug abuse patient.[facility] the event this information is protected by the Federal Confidentiality of Alcohol and Drug Abuse Patient Records regulations: The Federal rules restrict any use of the information to criminally investigate or prosecute any alcohol or drug abuse patient.[facility] the event this information is protected by the Federal Confidentiality of Alcohol and Drug Abuse Patient Records regulations: The Federal rules restrict any use of the information to criminally investigate or prosecute any alcohol or drug abuse patient.[facility] the event this information is protected by the Federal Confidentiality of Alcohol and Drug Abuse Patient Records regulations: The Federal rules restrict any use of the information to criminally investigate or prosecute any alcohol or drug abuse patient.[facility] Hospital[facility] the event this information is protected by the Federal Confidentiality of Alcohol and Drug Abuse Patient Records regulations: The Federal rules restrict any use of the information to criminally investigate or prosecute any alcohol or drug abuse patient.[facility] the event this information is protected by the Federal Confidentiality of Alcohol and Drug Abuse Patient Records regulations: The Federal rules restrict any use of the information to criminally investigate or prosecute any alcohol or drug abuse patient.[facility] Hospital[facility] the event this information is protected by the Federal Confidentiality of Alcohol and Drug Abuse Patient Records regulations: The Federal rules restrict any use of the information to criminally investigate or prosecute any alcohol or drug abuse patient.[facility] HospitalIn the event this information is protected by the Federal Confidentiality of Alcohol and Drug Abuse Patient Records regulations: The Federal rules restrict any use of the information to criminally investigate or prosecute any alcohol or drug abuse patient.[facility] HospitalIn the event this information is protected by the Federal Confidentiality of Alcohol and Drug Abuse Patient Records regulations: The Federal rules restrict any use of the information to criminally investigate or prosecute any alcohol or drug abuse patient.[facility] HospitalIn the event this information is protected by the Federal Confidentiality of Alcohol and Drug Abuse Patient Records regulations: The Federal rules restrict any use of the information to criminally investigate or prosecute any alcohol or drug abuse patient.[facility] HospitalIn the event this information is protected by the Federal Confidentiality of Alcohol and Drug Abuse Patient Records regulations: The Federal rules restrict any use of the information to criminally investigate or prosecute any alcohol or drug abuse patient.[facility] HospitalIn the event this information is protected by the Federal Confidentiality of Alcohol and Drug Abuse Patient Records regulations: The Federal rules restrict any use of the information to criminally investigate or prosecute any alcohol or drug abuse patient.[facility] HospitalIn the event this information is protected by the Federal Confidentiality of Alcohol and Drug Abuse Patient Records regulations: The Federal rules restrict any use of the information to criminally investigate or prosecute any alcohol or drug abuse patient.[facility] HospitalIn the event this information is protected by the Federal Confidentiality of Alcohol and Drug Abuse Patient Records regulations: The Federal rules restrict any use of the information to criminally investigate or prosecute any alcohol or drug abuse patient.[facility] HospitalIn the event this information is protected by the Federal Confidentiality of Alcohol and Drug Abuse Patient Records regulations: The Federal rules restrict any use of the information to criminally investigate or prosecute any alcohol or drug abuse patient.[facility] HospitalIn the event this information is protected by the Federal Confidentiality of Alcohol and Drug Abuse Patient Records regulations: The Federal rules restrict any use of the information to criminally investigate or prosecute any alcohol or drug abuse patient.[facility] HospitalIn the event this information is protected by the Federal Confidentiality of Alcohol and Drug Abuse Patient Records regulations: The Federal rules restrict any use of the information to criminally investigate or prosecute any alcohol or drug abuse patient.[facility] HospitalIn the event this information is protected by the Federal Confidentiality of Alcohol and Drug Abuse Patient Records regulations: The Federal rules restrict any use of the information to criminally investigate or prosecute any alcohol or drug abuse patient.[facility] HospitalIn the event this information is protected by the Federal Confidentiality of Alcohol and Drug Abuse Patient Records regulations: The Federal rules restrict any use of the information to criminally investigate or prosecute any alcohol or drug abuse patient.[facility] HospitalIn the event this information is protected by the Federal Confidentiality of Alcohol and Drug Abuse Patient Records regulations: The Federal rules restrict any use of the information to criminally investigate or prosecute any alcohol or drug abuse patient.[facility] HospitalIn the event this information is protected by the Federal Confidentiality of Alcohol and Drug Abuse Patient Records regulations: The Federal rules restrict any use of the information to criminally investigate or prosecute any alcohol or drug abuse patient.[facility] HospitalIn the event this information is protected by the Federal Confidentiality of Alcohol and Drug Abuse Patient Records regulations: The Federal rules restrict any use of the information to criminally investigate or prosecute any alcohol or drug abuse patient.[facility] HospitalIn the event this information is protected by the Federal Confidentiality of Alcohol and Drug Abuse Patient Records regulations: The Federal rules restrict any use of the information to criminally investigate or prosecute any alcohol or drug abuse patient.[facility] HospitalIn the event this information is protected by the Federal Confidentiality of Alcohol and Drug Abuse Patient Records regulations: The Federal rules restrict any use of the information to criminally investigate or prosecute any alcohol or drug abuse patient.[facility] HospitalIn the event this information is protected by the Federal Confidentiality of Alcohol and Drug Abuse Patient Records regulations: The Federal rules restrict any use of the information to criminally investigate or prosecute any alcohol or drug abuse patient.[facility] HospitalIn the event this information is protected by the Federal Confidentiality of Alcohol and Drug Abuse Patient Records regulations: The Federal rules restrict any use of the information to criminally investigate or prosecute any alcohol or drug abuse patient.[facility] HospitalIn the event this information is protected by the Federal Confidentiality of Alcohol and Drug Abuse Patient Records regulations: The Federal rules restrict any use of the information to criminally investigate or prosecute any alcohol or drug abuse patient.[facility] HospitalIn the event this information is protected by the Federal Confidentiality of Alcohol and Drug Abuse Patient Records regulations: The Federal rules restrict any use of the information to criminally investigate or prosecute any alcohol or drug abuse patient.[facility] HospitalIn the event this information is protected by the Federal Confidentiality of Alcohol and Drug Abuse Patient Records regulations: The Federal rules restrict any use of the information to criminally investigate or prosecute any alcohol or drug abuse patient.[facility] HospitalIn the event this information is protected by the Federal Confidentiality of Alcohol and Drug Abuse Patient Records regulations: The Federal rules restrict any use of the information to criminally investigate or prosecute any alcohol or drug abuse patient.[facility] HospitalIn the event this information is protected by the Federal Confidentiality of Alcohol and Drug Abuse Patient Records regulations: The Federal rules restrict any use of the information to criminally investigate or prosecute any alcohol or drug abuse patient.[facility] HospitalIn the event this information is protected by the Federal Confidentiality of Alcohol and Drug Abuse Patient Records regulations: The Federal rules restrict any use of the information to criminally investigate or prosecute any alcohol or drug abuse patient.[facility] HospitalIn the event this information is protected by the Federal Confidentiality of Alcohol and Drug Abuse Patient Records regulations: The Federal rules restrict any use of the information to criminally investigate or prosecute any alcohol or drug abuse patient.[facility] HospitalIn the event this information is protected by the Federal Confidentiality of Alcohol and Drug Abuse Patient Records regulations: The Federal rules restrict any use of the information to criminally investigate or prosecute any alcohol or drug abuse patient.[facility] HospitalIn the event this information is protected by the Federal Confidentiality of Alcohol and Drug Abuse Patient Records regulations: The Federal rules restrict any use of the information to criminally investigate or prosecute any alcohol or drug abuse patient.[facility] HospitalIn the event this information is protected by the Federal Confidentiality of Alcohol and Drug Abuse Patient Records regulations: The Federal rules restrict any use of the information to criminally investigate or prosecute any alcohol or drug abuse patient.[facility] HospitalIn the event this information is protected by the Federal Confidentiality of Alcohol and Drug Abuse Patient Records regulations: The Federal rules restrict any use of the information to criminally investigate or prosecute any alcohol or drug abuse patient.[facility] HospitalIn the event this information is protected by the Federal Confidentiality of Alcohol and Drug Abuse Patient Records regulations: The Federal rules restrict any use of the information to criminally investigate or prosecute any alcohol or drug abuse patient.[facility] HospitalIn the event this information is protected by the Federal Confidentiality of Alcohol and Drug Abuse Patient Records regulations: The Federal rules restrict any use of the information to criminally investigate or prosecute any alcohol or drug abuse patient.[facility] HospitalIn the event this information is protected by the Federal Confidentiality of Alcohol and Drug Abuse Patient Records regulations: The Federal rules restrict any use of the information to criminally investigate or prosecute any alcohol or drug abuse patient.[facility] HospitalIn the event this information is protected by the Federal Confidentiality of Alcohol and Drug Abuse Patient Records regulations: The Federal rules restrict any use of the information to criminally investigate or prosecute any alcohol or drug abuse patient.[facility] HospitalIn the event this information is protected by the Federal Confidentiality of Alcohol and Drug Abuse Patient Records regulations: The Federal rules restrict any use of the information to criminally investigate or prosecute any alcohol or drug abuse patient.[facility] HospitalIn the event this information is protected by the Federal Confidentiality of Alcohol and Drug Abuse Patient Records regulations: The Federal rules restrict any use of the information to criminally investigate or prosecute any alcohol or drug abuse patient.[facility] HospitalIn the event this information is protected by the Federal Confidentiality of Alcohol and Drug Abuse Patient Records regulations: The Federal rules restrict any use of the information to criminally investigate or prosecute any alcohol or drug abuse patient.[facility] HospitalIn the event this information is protected by the Federal Confidentiality of Alcohol and Drug Abuse Patient Records regulations: The Federal rules restrict any use of the information to criminally investigate or prosecute any alcohol or drug abuse patient.[facility] HospitalIn the event this information is protected by the Federal Confidentiality of Alcohol and Drug Abuse Patient Records regulations: The Federal rules restrict any use of the information to criminally investigate or prosecute any alcohol or drug abuse patient.[facility] HospitalIn the event this information is protected by the Federal Confidentiality of Alcohol and Drug Abuse Patient Records regulations: The Federal rules restrict any use of the information to criminally investigate or prosecute any alcohol or drug abuse patient.[facility] HospitalIn the event this information is protected by the Federal Confidentiality of Alcohol and Drug Abuse Patient Records regulations: The Federal rules restrict any use of the information to criminally investigate or prosecute any alcohol or drug abuse patient.[facility] HospitalIn the event this information is protected by the Federal Confidentiality of Alcohol and Drug Abuse Patient Records regulations: The Federal rules restrict any use of the information to criminally investigate or prosecute any alcohol or drug abuse patient.[facility] HospitalIn the event this information is protected by the Federal Confidentiality of Alcohol and Drug Abuse Patient Records regulations: The Federal rules restrict any use of the information to criminally investigate or prosecute any alcohol or drug abuse patient.[facility] HospitalIn the event this information is protected by the Federal Confidentiality of Alcohol and Drug Abuse Patient Records regulations: The Federal rules restrict any use of the information to criminally investigate or prosecute any alcohol or drug abuse patient.[facility]In the event this information is protected by the Federal Confidentiality of Alcohol and Drug Abuse Patient Records regulations: The Federal rules restrict any use of the information to criminally investigate or prosecute any alcohol or drug abuse patient.[facility] HospitalIn the event this information is protected by the Federal Confidentiality of Alcohol and Drug Abuse Patient Records regulations: The Federal rules restrict any use of the information to criminally investigate or prosecute any alcohol or drug abuse patient.[facility] HospitalIn the event this information is protected by the Federal Confidentiality of Alcohol and Drug Abuse Patient Records regulations: The Federal rules restrict any use of the information to criminally investigate or prosecute any alcohol or drug abuse patient.[facility] HospitalIn the event this information is protected by the Federal Confidentiality of Alcohol and Drug Abuse Patient Records regulations: The Federal rules restrict any use of the information to criminally investigate or prosecute any alcohol or drug abuse patient.[facility] HospitalIn the event this information is protected by the Federal Confidentiality of Alcohol and Drug Abuse Patient Records regulations: The Federal rules restrict any use of the information to criminally investigate or prosecute any alcohol or drug abuse patient.[facility] HospitalIn the event this information is protected by the Federal Confidentiality of Alcohol and Drug Abuse Patient Records regulations: The Federal rules restrict any use of the information to criminally investigate or prosecute any alcohol or drug abuse patient.[facility] HospitalIn the event this information is protected by the Federal Confidentiality of Alcohol and Drug Abuse Patient Records regulations: The Federal rules restrict any use of the information to criminally investigate or prosecute any alcohol or drug abuse patient.[facility] HospitalIn the event this information is protected by the Federal Confidentiality of Alcohol and Drug Abuse Patient Records regulations: The Federal rules restrict any use of the information to criminally investigate or prosecute any alcohol or drug abuse patient.[facility] HospitalIn the event this information is protected by the Federal Confidentiality of Alcohol and Drug Abuse Patient Records regulations: The Federal rules restrict any use of the information to criminally investigate or prosecute any alcohol or drug abuse patient.[facility] HospitalIn the event this information is protected by the Federal Confidentiality of Alcohol and Drug Abuse Patient Records regulations: The Federal rules restrict any use of the information to criminally investigate or prosecute any alcohol or drug abuse patient.[facility] HospitalIn the event this information is protected by the Federal Confidentiality of Alcohol and Drug Abuse Patient Records regulations: The Federal rules restrict any use of the information to criminally investigate or prosecute any alcohol or drug abuse patient.[facility] HospitalIn the event this information is protected by the Federal Confidentiality of Alcohol and Drug Abuse Patient Records regulations: The Federal rules restrict any use of the information to criminally investigate or prosecute any alcohol or drug abuse patient.[facility] HospitalIn the event this information is protected by the Federal Confidentiality of Alcohol and Drug Abuse Patient Records regulations: The Federal rules restrict any use of the information to criminally investigate or prosecute any alcohol or drug abuse patient.[facility] HospitalIn the event this information is protected by the Federal Confidentiality of Alcohol and Drug Abuse Patient Records regulations: The Federal rules restrict any use of the information to criminally investigate or prosecute any alcohol or drug abuse patient.[facility] HospitalIn the event this information is protected by the Federal Confidentiality of Alcohol and Drug Abuse Patient Records regulations: The Federal rules restrict any use of the information to criminally investigate or prosecute any alcohol or drug abuse patient.[facility] HospitalIn the event this information is protected by the Federal Confidentiality of Alcohol and Drug Abuse Patient Records regulations: The Federal rules restrict any use of the information to criminally investigate or prosecute any alcohol or drug abuse patient.[facility] HospitalIn the event this information is protected by the Federal Confidentiality of Alcohol and Drug Abuse Patient Records regulations: The Federal rules restrict any use of the information to criminally investigate or prosecute any alcohol or drug abuse patient.[facility] HospitalIn the event this information is protected by the Federal Confidentiality of Alcohol and Drug Abuse Patient Records regulations: The Federal rules restrict any use of the information to criminally investigate or prosecute any alcohol or drug abuse patient.[facility] HospitalIn the event this information is protected by the Federal Confidentiality of Alcohol and Drug Abuse Patient Records regulations: The Federal rules restrict any use of the information to criminally investigate or prosecute any alcohol or drug abuse patient.[facility] HospitalIn the event this information is protected by the Federal Confidentiality of Alcohol and Drug Abuse Patient Records regulations: The Federal rules restrict any use of the information to criminally investigate or prosecute any alcohol or drug abuse patient.[facility] HospitalIn the event this information is protected by the Federal Confidentiality of Alcohol and Drug Abuse Patient Records regulations: The Federal rules restrict any use of the information to criminally investigate or prosecute any alcohol or drug abuse patient.[facility] HospitalIn the event this information is protected by the Federal Confidentiality of Alcohol and Drug Abuse Patient Records regulations: The Federal rules restrict any use of the information to criminally investigate or prosecute any alcohol or drug abuse patient.[facility] HospitalIn the event this information is protected by the Federal Confidentiality of Alcohol and Drug Abuse Patient Records regulations: The Federal rules restrict any use of the information to criminally investigate or prosecute any alcohol or drug abuse patient.[facility] HospitalIn the event this information is protected by the Federal Confidentiality of Alcohol and Drug Abuse Patient Records regulations: The Federal rules restrict any use of the information to criminally investigate or prosecute any alcohol or drug abuse patient.[facility] HospitalIn the event this information is protected by the Federal Confidentiality of Alcohol and Drug Abuse Patient Records regulations: The Federal rules restrict any use of the information to criminally investigate or prosecute any alcohol or drug abuse patient.[facility] HospitalIn the event this information is protected by the Federal Confidentiality of Alcohol and Drug Abuse Patient Records regulations: The Federal rules restrict any use of the information to criminally investigate or prosecute any alcohol or drug abuse patient.[facility] HospitalIn the event this information is protected by the Federal Confidentiality of Alcohol and Drug Abuse Patient Records regulations: The Federal rules restrict any use of the information to criminally investigate or prosecute any alcohol or drug abuse patient.[facility] HospitalIn the event this information is protected by the Federal Confidentiality of Alcohol and Drug Abuse Patient Records regulations: The Federal rules restrict any use of the information to criminally investigate or prosecute any alcohol or drug abuse patient.[facility] HospitalIn the event this information is protected by the Federal Confidentiality of Alcohol and Drug Abuse Patient Records regulations: The Federal rules restrict any use of the information to criminally investigate or prosecute any alcohol or drug abuse patient.[facility] HospitalIn the event this information is protected by the Federal Confidentiality of Alcohol and Drug Abuse Patient Records regulations: The Federal rules restrict any use of the information to criminally investigate or prosecute any alcohol or drug abuse patient.[facility] HospitalIn the event this information is protected by the Federal Confidentiality of Alcohol and Drug Abuse Patient Records regulations: The Federal rules restrict any use of the information to criminally investigate or prosecute any alcohol or drug abuse patient.[facility] HospitalIn the event this information is protected by the Federal Confidentiality of Alcohol and Drug Abuse Patient Records regulations: The Federal rules restrict any use of the information to criminally investigate or prosecute any alcohol or drug abuse patient.[facility] HospitalIn the event this information is protected by the Federal Confidentiality of Alcohol and Drug Abuse Patient Records regulations: The Federal rules restrict any use of the information to criminally investigate or prosecute any alcohol or drug abuse patient.[facility] HospitalIn the event this information is protected by the Federal Confidentiality of Alcohol and Drug Abuse Patient Records regulations: The Federal rules restrict any use of the information to criminally investigate or prosecute any alcohol or drug abuse patient.[facility] HospitalIn the event this information is protected by the Federal Confidentiality of Alcohol and Drug Abuse Patient Records regulations: The Federal rules restrict any use of the information to criminally investigate or prosecute any alcohol or drug abuse patient.[facility] HospitalIn the event this information is protected by the Federal Confidentiality of Alcohol and Drug Abuse Patient Records regulations: The Federal rules restrict any use of the information to criminally investigate or prosecute any alcohol or drug abuse patient.[facility] HospitalIn the event this information is protected by the Federal Confidentiality of Alcohol and Drug Abuse Patient Records regulations: The Federal rules restrict any use of the information to criminally investigate or prosecute any alcohol or drug abuse patient.[facility] HospitalIn the event this information is protected by the Federal Confidentiality of Alcohol and Drug Abuse Patient Records regulations: The Federal rules restrict any use of the information to criminally investigate or prosecute any alcohol or drug abuse patient.[facility] HospitalIn the event this information is protected by the Federal Confidentiality of Alcohol and Drug Abuse Patient Records regulations: The Federal rules restrict any use of the information to criminally investigate or prosecute any alcohol or drug abuse patient.[facility] HospitalIn the event this information is protected by the Federal Confidentiality of Alcohol and Drug Abuse Patient Records regulations: The Federal rules restrict any use of the information to criminally investigate or prosecute any alcohol or drug abuse patient.[facility] HospitalIn the event this information is protected by the Federal Confidentiality of Alcohol and Drug Abuse Patient Records regulations: The Federal rules restrict any use of the information to criminally investigate or prosecute any alcohol or drug abuse patient.[facility] HospitalIn the event this information is protected by the Federal Confidentiality of Alcohol and Drug Abuse Patient Records regulations: The Federal rules restrict any use of the information to criminally investigate or prosecute any alcohol or drug abuse patient.[facility] HospitalIn the event this information is protected by the Federal Confidentiality of Alcohol and Drug Abuse Patient Records regulations: The Federal rules restrict any use of the information to criminally investigate or prosecute any alcohol or drug abuse patient.[facility] HospitalIn the event this information is protected by the Federal Confidentiality of Alcohol and Drug Abuse Patient Records regulations: The Federal rules restrict any use of the information to criminally investigate or prosecute any alcohol or drug abuse patient.[facility] HospitalIn the event this information is protected by the Federal Confidentiality of Alcohol and Drug Abuse Patient Records regulations: The Federal rules restrict any use of the information to criminally investigate or prosecute any alcohol or drug abuse patient.[facility] HospitalIn the event this information is protected by the Federal Confidentiality of Alcohol and Drug Abuse Patient Records regulations: The Federal rules restrict any use of the information to criminally investigate or prosecute any alcohol or drug abuse patient.[facility] HospitalIn the event this information is protected by the Federal Confidentiality of Alcohol and Drug Abuse Patient Records regulations: The Federal rules restrict any use of the information to criminally investigate or prosecute any alcohol or drug abuse patient.[facility] HospitalIn the event this information is protected by the Federal Confidentiality of Alcohol and Drug Abuse Patient Records regulations: The Federal rules restrict any use of the information to criminally investigate or prosecute any alcohol or drug abuse patient.[facility] HospitalIn the event this information is protected by the Federal Confidentiality of Alcohol and Drug Abuse Patient Records regulations: The Federal rules restrict any use of the information to criminally investigate or prosecute any alcohol or drug abuse patient.[facility] HospitalIn the event this information is protected by the Federal Confidentiality of Alcohol and Drug Abuse Patient Records regulations: The Federal rules restrict any use of the information to criminally investigate or prosecute any alcohol or drug abuse patient.[facility] HospitalIn the event this information is protected by the Federal Confidentiality of Alcohol and Drug Abuse Patient Records regulations: The Federal rules restrict any use of the information to criminally investigate or prosecute any alcohol or drug abuse patient.[facility] HospitalIn the event this information is protected by the Federal Confidentiality of Alcohol and Drug Abuse Patient Records regulations: The Federal rules restrict any use of the information to criminally investigate or prosecute any alcohol or drug abuse patient.[facility] HospitalIn the event this information is protected by the Federal Confidentiality of Alcohol and Drug Abuse Patient Records regulations: The Federal rules restrict any use of the information to criminally investigate or prosecute any alcohol or drug abuse patient.[facility] HospitalIn the event this information is protected by the Federal Confidentiality of Alcohol and Drug Abuse Patient Records regulations: The Federal rules restrict any use of the information to criminally investigate or prosecute any alcohol or drug abuse patient.[facility] HospitalIn the event this information is protected by the Federal Confidentiality of Alcohol and Drug Abuse Patient Records regulations: The Federal rules restrict any use of the information to criminally investigate or prosecute any alcohol or drug abuse patient.[facility] HospitalIn the event this information is protected by the Federal Confidentiality of Alcohol and Drug Abuse Patient Records regulations: The Federal rules restrict any use of the information to criminally investigate or prosecute any alcohol or drug abuse patient.[facility] HospitalIn the event this information is protected by the Federal Confidentiality of Alcohol and Drug Abuse Patient Records regulations: The Federal rules restrict any use of the information to criminally investigate or prosecute any alcohol or drug abuse patient.[facility] HospitalIn the event this information is protected by the Federal Confidentiality of Alcohol and Drug Abuse Patient Records regulations: The Federal rules restrict any use of the information to criminally investigate or prosecute any alcohol or drug abuse patient.[facility] HospitalIn the event this information is protected by the Federal Confidentiality of Alcohol and Drug Abuse Patient Records regulations: The Federal rules restrict any use of the information to criminally investigate or prosecute any alcohol or drug abuse patient.[facility] HospitalIn the event this information is protected by the Federal Confidentiality of Alcohol and Drug Abuse Patient Records regulations: The Federal rules restrict any use of the information to criminally investigate or prosecute any alcohol or drug abuse patient.[facility] HospitalIn the event this information is protected by the Federal Confidentiality of Alcohol and Drug Abuse Patient Records regulations: The Federal rules restrict any use of the information to criminally investigate or prosecute any alcohol or drug abuse patient.[facility] HospitalIn the event this information is protected by the Federal Confidentiality of Alcohol and Drug Abuse Patient Records regulations: The Federal rules restrict any use of the information to criminally investigate or prosecute any alcohol or drug abuse patient.[facility] HospitalIn the event this information is protected by the Federal Confidentiality of Alcohol and Drug Abuse Patient Records regulations: The Federal rules restrict any use of the information to criminally investigate or prosecute any alcohol or drug abuse patient.[facility] HospitalIn the event this information is protected by the Federal Confidentiality of Alcohol and Drug Abuse Patient Records regulations: The Federal rules restrict any use of the information to criminally investigate or prosecute any alcohol or drug abuse patient.[facility] HospitalIn the event this information is protected by the Federal Confidentiality of Alcohol and Drug Abuse Patient Records regulations: The Federal rules restrict any use of the information to criminally investigate or prosecute any alcohol or drug abuse patient.[facility] HospitalIn the event this information is protected by the Federal Confidentiality of Alcohol and Drug Abuse Patient Records regulations: The Federal rules restrict any use of the information to criminally investigate or prosecute any alcohol or drug abuse patient.[facility] HospitalIn the event this information is protected by the Federal Confidentiality of Alcohol and Drug Abuse Patient Records regulations: The Federal rules restrict any use of the information to criminally investigate or prosecute any alcohol or drug abuse patient.[facility] HospitalIn the event this information is protected by the Federal Confidentiality of Alcohol and Drug Abuse Patient Records regulations: The Federal rules restrict any use of the information to criminally investigate or prosecute any alcohol or drug abuse patient.[facility] HospitalIn the event this information is protected by the Federal Confidentiality of Alcohol and Drug Abuse Patient Records regulations: The Federal rules restrict any use of the information to criminally investigate or prosecute any alcohol or drug abuse patient.[facility] HospitalIn the event this information is protected by the Federal Confidentiality of Alcohol and Drug Abuse Patient Records regulations: The Federal rules restrict any use of the information to criminally investigate or prosecute any alcohol or drug abuse patient.[facility] HospitalIn the event this information is protected by the Federal Confidentiality of Alcohol and Drug Abuse Patient Records regulations: The Federal rules restrict any use of the information to criminally investigate or prosecute any alcohol or drug abuse patient.[facility] HospitalIn the event this information is protected by the Federal Confidentiality of Alcohol and Drug Abuse Patient Records regulations: The Federal rules restrict any use of the information to criminally investigate or prosecute any alcohol or drug abuse patient.[facility] HospitalIn the event this information is protected by the Federal Confidentiality of Alcohol and Drug Abuse Patient Records regulations: The Federal rules restrict any use of the information to criminally investigate or prosecute any alcohol or drug abuse patient.[facility] HospitalIn the event this information is protected by the Federal Confidentiality of Alcohol and Drug Abuse Patient Records regulations: The Federal rules restrict any use of the information to criminally investigate or prosecute any alcohol or drug abuse patient.[facility] HospitalIn the event this information is protected by the Federal Confidentiality of Alcohol and Drug Abuse Patient Records regulations: The Federal rules restrict any use of the information to criminally investigate or prosecute any alcohol or drug abuse patient.[facility] HospitalIn the event this information is protected by the Federal Confidentiality of Alcohol and Drug Abuse Patient Records regulations: The Federal rules restrict any use of the information to criminally investigate or prosecute any alcohol or drug abuse patient.[facility] HospitalIn the event this information is protected by the Federal Confidentiality of Alcohol and Drug Abuse Patient Records regulations: The Federal rules restrict any use of the information to criminally investigate or prosecute any alcohol or drug abuse patient.[facility] HospitalIn the event this information is protected by the Federal Confidentiality of Alcohol and Drug Abuse Patient Records regulations: The Federal rules restrict any use of the information to criminally investigate or prosecute any alcohol or drug abuse patient.[facility] HospitalIn the event this information is protected by the Federal Confidentiality of Alcohol and Drug Abuse Patient Records regulations: The Federal rules restrict any use of the information to criminally investigate or prosecute any alcohol or drug abuse patient.[facility] HospitalIn the event this information is protected by the Federal Confidentiality of Alcohol and Drug Abuse Patient Records regulations: The Federal rules restrict any use of the information to criminally investigate or prosecute any alcohol or drug abuse patient.[facility] HospitalIn the event this information is protected by the Federal Confidentiality of Alcohol and Drug Abuse Patient Records regulations: The Federal rules restrict any use of the information to criminally investigate or prosecute any alcohol or drug abuse patient.[facility] HospitalIn the event this information is protected by the Federal Confidentiality of Alcohol and Drug Abuse Patient Records regulations: The Federal rules restrict any use of the information to criminally investigate or prosecute any alcohol or drug abuse patient.[facility] HospitalIn the event this information is protected by the Federal Confidentiality of Alcohol and Drug Abuse Patient Records regulations: The Federal rules restrict any use of the information to criminally investigate or prosecute any alcohol or drug abuse patient.[facility] HospitalIn the event this information is protected by the Federal Confidentiality of Alcohol and Drug Abuse Patient Records regulations: The Federal rules restrict any use of the information to criminally investigate or prosecute any alcohol or drug abuse patient.[facility] HospitalIn the event this information is protected by the Federal Confidentiality of Alcohol and Drug Abuse Patient Records regulations: The Federal rules restrict any use of the information to criminally investigate or prosecute any alcohol or drug abuse patient.[facility] HospitalIn the event this information is protected by the Federal Confidentiality of Alcohol and Drug Abuse Patient Records regulations: The Federal rules restrict any use of the information to criminally investigate or prosecute any alcohol or drug abuse patient.[facility] HospitalIn the event this information is protected by the Federal Confidentiality of Alcohol and Drug Abuse Patient Records regulations: The Federal rules restrict any use of the information to criminally investigate or prosecute any alcohol or drug abuse patient.[facility] HospitalIn the event this information is protected by the Federal Confidentiality of Alcohol and Drug Abuse Patient Records regulations: The Federal rules restrict any use of the information to criminally investigate or prosecute any alcohol or drug abuse patient.[facility] HospitalIn the event this information is protected by the Federal Confidentiality of Alcohol and Drug Abuse Patient Records regulations: The Federal rules restrict any use of the information to criminally investigate or prosecute any alcohol or drug abuse patient.[facility] HospitalIn the event this information is protected by the Federal Confidentiality of Alcohol and Drug Abuse Patient Records regulations: The Federal rules restrict any use of the information to criminally investigate or prosecute any alcohol or drug abuse patient.[facility] HospitalIn the event this information is protected by the Federal Confidentiality of Alcohol and Drug Abuse Patient Records regulations: The Federal rules restrict any use of the information to criminally investigate or prosecute any alcohol or drug abuse patient.[facility] HospitalIn the event this information is protected by the Federal Confidentiality of Alcohol and Drug Abuse Patient Records regulations: The Federal rules restrict any use of the information to criminally investigate or prosecute any alcohol or drug abuse patient.[facility] HospitalIn the event this information is protected by the Federal Confidentiality of Alcohol and Drug Abuse Patient Records regulations: The Federal rules restrict any use of the information to criminally investigate or prosecute any alcohol or drug abuse patient.[facility] HospitalIn the event this information is protected by the Federal Confidentiality of Alcohol and Drug Abuse Patient Records regulations: The Federal rules restrict any use of the information to criminally investigate or prosecute any alcohol or drug abuse patient.[facility] HospitalIn the event this information is protected by the Federal Confidentiality of Alcohol and Drug Abuse Patient Records regulations: The Federal rules restrict any use of the information to criminally investigate or prosecute any alcohol or drug abuse patient.[facility] HospitalIn the event this information is protected by the Federal Confidentiality of Alcohol and Drug Abuse Patient Records regulations: The Federal rules restrict any use of the information to criminally investigate or prosecute any alcohol or drug abuse patient.[facility] HospitalIn the event this information is protected by the Federal Confidentiality of Alcohol and Drug Abuse Patient Records regulations: The Federal rules restrict any use of the information to criminally investigate or prosecute any alcohol or drug abuse patient.[facility] HospitalIn the event this information is protected by the Federal Confidentiality of Alcohol and Drug Abuse Patient Records regulations: The Federal rules restrict any use of the information to criminally investigate or prosecute any alcohol or drug abuse patient.[facility] HospitalIn the event this information is protected by the Federal Confidentiality of Alcohol and Drug Abuse Patient Records regulations: The Federal rules restrict any use of the information to criminally investigate or prosecute any alcohol or drug abuse patient.[facility] HospitalIn the event this information is protected by the Federal Confidentiality of Alcohol and Drug Abuse Patient Records regulations: The Federal rules restrict any use of the information to criminally investigate or prosecute any alcohol or drug abuse patient.[facility] HospitalIn the event this information is protected by the Federal Confidentiality of Alcohol and Drug Abuse Patient Records regulations: The Federal rules restrict any use of the information to criminally investigate or prosecute any alcohol or drug abuse patient.[facility] HospitalIn the event this information is protected by the Federal Confidentiality of Alcohol and Drug Abuse Patient Records regulations: The Federal rules restrict any use of the information to criminally investigate or prosecute any alcohol or drug abuse patient.[facility] HospitalIn the event this information is protected by the Federal Confidentiality of Alcohol and Drug Abuse Patient Records regulations: The Federal rules restrict any use of the information to criminally investigate or prosecute any alcohol or drug abuse patient.[facility] HospitalIn the event this information is protected by the Federal Confidentiality of Alcohol and Drug Abuse Patient Records regulations: The Federal rules restrict any use of the information to criminally investigate or prosecute any alcohol or drug abuse patient.[facility] HospitalIn the event this information is protected by the Federal Confidentiality of Alcohol and Drug Abuse Patient Records regulations: The Federal rules restrict any use of the information to criminally investigate or prosecute any alcohol or drug abuse patient.[facility] HospitalIn the event this information is protected by the Federal Confidentiality of Alcohol and Drug Abuse Patient Records regulations: The Federal rules restrict any use of the information to criminally investigate or prosecute any alcohol or drug abuse patient.[facility] HospitalIn the event this information is protected by the Federal Confidentiality of Alcohol and Drug Abuse Patient Records regulations: The Federal rules restrict any use of the information to criminally investigate or prosecute any alcohol or drug abuse patient.[facility] HospitalIn the event this information is protected by the Federal Confidentiality of Alcohol and Drug Abuse Patient Records regulations: The Federal rules restrict any use of the information to criminally investigate or prosecute any alcohol or drug abuse patient.[facility] HospitalIn the event this information is protected by the Federal Confidentiality of Alcohol and Drug Abuse Patient Records regulations: The Federal rules restrict any use of the information to criminally investigate or prosecute any alcohol or drug abuse patient.[facility] HospitalIn the event this information is protected by the Federal Confidentiality of Alcohol and Drug Abuse Patient Records regulations: The Federal rules restrict any use of the information to criminally investigate or prosecute any alcohol or drug abuse patient.[facility] HospitalIn the event this information is protected by the Federal Confidentiality of Alcohol and Drug Abuse Patient Records regulations: The Federal rules restrict any use of the information to criminally investigate or prosecute any alcohol or drug abuse patient.[facility] HospitalIn the event this information is protected by the Federal Confidentiality of Alcohol and Drug Abuse Patient Records regulations: The Federal rules restrict any use of the information to criminally investigate or prosecute any alcohol or drug abuse patient.[facility] HospitalIn the event this information is protected by the Federal Confidentiality of Alcohol and Drug Abuse Patient Records regulations: The Federal rules restrict any use of the information to criminally investigate or prosecute any alcohol or drug abuse patient.[facility] HospitalIn the event this information is protected by the Federal Confidentiality of Alcohol and Drug Abuse Patient Records regulations: The Federal rules restrict any use of the information to criminally investigate or prosecute any alcohol or drug abuse patient.[facility] HospitalIn the event this information is protected by the Federal Confidentiality of Alcohol and Drug Abuse Patient Records regulations: The Federal rules restrict any use of the information to criminally investigate or prosecute any alcohol or drug abuse patient.[facility] HospitalIn the event this information is protected by the Federal Confidentiality of Alcohol and Drug Abuse Patient Records regulations: The Federal rules restrict any use of the information to criminally investigate or prosecute any alcohol or drug abuse patient.[facility] HospitalIn the event this information is protected by the Federal Confidentiality of Alcohol and Drug Abuse Patient Records regulations: The Federal rules restrict any use of the information to criminally investigate or prosecute any alcohol or drug abuse patient.[facility] HospitalIn the event this information is protected by the Federal Confidentiality of Alcohol and Drug Abuse Patient Records regulations: The Federal rules restrict any use of the information to criminally investigate or prosecute any alcohol or drug abuse patient.[facility] HospitalIn the event this information is protected by the Federal Confidentiality of Alcohol and Drug Abuse Patient Records regulations: The Federal rules restrict any use of the information to criminally investigate or prosecute any alcohol or drug abuse patient.[facility] HospitalIn the event this information is protected by the Federal Confidentiality of Alcohol and Drug Abuse Patient Records regulations: The Federal rules restrict any use of the information to criminally investigate or prosecute any alcohol or drug abuse patient.[facility] HospitalIn the event this information is protected by the Federal Confidentiality of Alcohol and Drug Abuse Patient Records regulations: The Federal rules restrict any use of the information to criminally investigate or prosecute any alcohol or drug abuse patient.[facility] HospitalIn the event this information is protected by the Federal Confidentiality of Alcohol and Drug Abuse Patient Records regulations: The Federal rules restrict any use of the information to criminally investigate or prosecute any alcohol or drug abuse patient.[facility] HospitalIn the event this information is protected by the Federal Confidentiality of Alcohol and Drug Abuse Patient Records regulations: The Federal rules restrict any use of the information to criminally investigate or prosecute any alcohol or drug abuse patient.[facility] HospitalIn the event this information is protected by the Federal Confidentiality of Alcohol and Drug Abuse Patient Records regulations: The Federal rules restrict any use of the information to criminally investigate or prosecute any alcohol or drug abuse patient.[facility] HospitalIn the event this information is protected by the Federal Confidentiality of Alcohol and Drug Abuse Patient Records regulations: The Federal rules restrict any use of the information to criminally investigate or prosecute any alcohol or drug abuse patient.[facility] HospitalIn the event this information is protected by the Federal Confidentiality of Alcohol and Drug Abuse Patient Records regulations: The Federal rules restrict any use of the information to criminally investigate or prosecute any alcohol or drug abuse patient.[facility] Reason for Visit (unrecogniz ed section and content) Reason Comments Radiology NM Specialty Diagnoses / Procedures Referred By Contac t Referred To Contact Radiology / RADIO PET CT MOBILE GOTTLIEB Diagnoses 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) Metastatic cancer to bone (HCC) 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) NM PET/CT SKULL-THIGH SUBSEQUENT 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] 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) [C78.7] Metastatic cancer to bone (HCC) [C79.51] 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] Procedures PET IMAGING CT ATTENUATION SKULL BASE MID-THIGH PET CT Corazon Renteria DO [address] [place] [address] Phone: tel: fax: Mobile PET CT [address] [place] [address] Referral ID Status Reason Start Date Expiration Date Visits Re quested Visits Authorized [id number] Closed 11/19/2024 05/21/2025 2 2 Reason Comments Non-Chemotherapy Treatment Specialty Diagnoses / Procedures Referred By Contac t Referred To Contact Diagnoses 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) Metastatic cancer to bone (HCC) 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) Procedures INJECTION, ZOLEDRONIC ACID, 1 MG Zoledronic Acid IV Orderable Corazon Renteria, DO [address] [facility] [place] [address] [facility] [address] [place] [address] Referral ID Status Reason Start Date Expiration Date Visits Requested Visits Authorized [id number] Authorized Patient Cleared INN/[employer] Auth Obtained 01/29/2024 05/07/2024 2 2 Reason Comments Chemotherapy Treatment Specialty Diagnoses / Procedures [facility] Contact Diagnoses 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 [facility] [address] [facility] [address] [place] [address] Referral ID Status Reason Start Date Expiration Date Visits Requested Visits Authorized [id number] Authorized Patient Cleared INN/[employer] Payor Auth Obtained 01/16/2024 12/11/2024 24 24 Referral ID Status Reason Start Date Expiration Date Visits Requested Visits Authorized [id number] Authorized Patient Cleared INN/[employer] Payor Auth Obtained 01/16/2024 05/21/2024 15 15 Reason Comments Imm/Inj Specialty Diagnoses / Procedures [facility] To Contact Diagnoses 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) Metastatic cancer to bone (HCC) 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) Procedures ETOPOSIDE 10 MG INJ CARBOPLATIN INJECTION PALONOSETRON HCL INJ, ATEZOLIZUMAB,10 MG FOSAPREPITANT INJECTION Corazon Renteria, DO [address] [place] [address] [facility]equ[facility] [address] [place] [address] Referral ID Status Reason Start Date Expiration Date Visits Requested Visits Authorized [id number] Authorized Patient Cleared INN/[employer] Payor Auth Obtained 01/16/2024 12/10/2024 1 12 Referral ID Status Reason Start Date Expiration Date V isits Requested Visits Authorized [id number] Authorized 01/16/2024 12/10/2024 1 12 Reason Onset Date Comments Refill Request 08/30/2021 Reason Comments Patient Request Reason Comments Results Reason Onset Date Comments Refill Request 11/02/2021 SEE RX NOTES Reason Comments Orders Reason Onset Date Comments Refill Request 01/18/2022 SEE RX NOTES Reason Comments Physical Reason Comments cost of inhaler Reason Comments Spirometry Specialty Diagnoses / Procedures [facility] Diagnoses Tobacco use disorder SHAH (dyspnea on exertion) Procedures LUNG DIFFUSION CAPACITY (DLCO) DIFFUSING CAPACITY Casey Hernandez PA-C [address] [place] [address] [facility] [address] [place] [address] Referral ID Status Reason Start Date Expiration Date V isits Requested Visits Authorized [id number] Closed Auto-Generate d Referral 02/02/2022 05/21/2022 1 1 Specialty Diagnoses / Procedures [facility] Diagnoses Tobacco use disorder SHAH (dyspnea on exertion) Procedures SPIROMETRY WITH DILATOR IF OBSTRUCTED BRNCDILAT RSPSE SPMTRY PRE&POST-BRNCDILAT ADMN Casey Hernandez PA-C [address] [place] [address] [facility] [address] [place] [address] Referral ID Status Reason Start Date Expiration Date V isits Requested Visits Authorized [id number] Closed Auto-Generate d Referral 02/02/2022 05/21/2022 1 1 Specialty Diagnoses / Procedures Referred By Contac t Referred To Contact [facility] Diagnoses Tobacco use disorder SHAH (dyspnea on exertion) Procedures LUNG VOLUMES Casey Hernandez PA-C [address] [place] [address] [facility] [address] [place] [id number] Referral ID Status Reason Start Date Expiration Date V isits Requested Visits Authorized [id number] Closed Auto-Generate d Referral 02/02/2022 05/21/2022 1 1 Reason Comments Medication Problem Reason Onset Date Comments Refill Request 02/25/2022 Reason Comments Forms Reason Comments Additional Labs Reason Comments Refill Request Reason Onset Date Comments Refill Request 04/19/2022 Reason Onset Date Comments Refill Request 05/24/2022 Reason Onset Date Comments Refill Request 07/01/2022 Reason Onset Date Comments Refill Request 07/16/2022 Reason Comments Patient Question Reason Comments Depression Reason Comments Follow Up Reason Onset Date Comments Refill Request 09/21/2022 Reason Onset Date Comments Refill Request 10/25/2022 Reason Comments Medication Problem Too expensive Reason Onset Date Comments Refill Request 01/27/2023 Reason Comments Lung Cancer Screening program Reason Onset Date Comments Refill Request 03/20/2023 Reason Onset Date Comments Refill Request 04/12/2023 Reason Comments Consult Positive FOBT Specialty Diagnoses / Procedures Referred By Contac t Referred To Contact General Surgery Diagnoses Positive colorectal cancer screening using Cologuard test Screening for colon cancer Procedures CONSULT TO GENERAL SURGERY OFFICE/OUTPATIENT NEW HIGH MDM 60-74 MINUTES Casey Hernandez PA-C [address] [place] [address] Referral ID Status Reason Start Date Expiration Date V isits Requested Visits Authorized [id number] Closed PCP Requested Referral 03/22/2023 03/21/2024 1 1 Reason Onset Date Comments Refill Request 06/28/2023 Reason Comments 6 Month Exam Reason Comments Radiology US Specialty Diagnoses / Procedures Referred By Contac t Referred To Contact US IMAGING Diagnoses Tobacco abuse Procedures US SCREENING FOR AAA (2017) US ABDOMINAL AORTA REAL TIME SCREEN STUDY AAA Tyra Martell, SEASONER HAND.SOLE TACKER [address] [place] [address] [place] [address] Referral ID Status Reason Start Date Expiration Date V isits Requested Visits Authorized [id number] Closed Auto-Generate d Referral 08/29/2023 09/27/2024 1 1 Specialty Diagnoses / Procedures Referred By Contac t Referred To Contact CT IMAGING Diagnoses Tobacco abuse Pulmonary nodule Procedures CT CHEST WO IVCON DIAGNOSTIC COMPUTED TOMOGRAPHY THORAX W/O CNTRST Tyra Martell, SEASONER HAND.SOLE TACKER [address] [place] [address] [place] [address] Referral ID Status Reason Start Date Expiration Date V isits Requested Visits Authorized [id number] Closed Auto-Generate d Referral 09/14/2023 05/21/2024 1 1 Reason Comments New Patient New Pt: SHAH is sever e. Calcification seen on recent chest CT. SHAH worsening over the last couple months. Specialty Diagnoses / Procedures Referred By Contac t Referred To Contact Cardiology Diagnoses Coronary artery calcification seen on CAT scan Procedures CONSULT TO CARDIOLOGY OFFICE/OUTPATIENT [facility] 60 MINUTES Anitra Mcduffie, SEASONER HAND.LAMINATION 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 [address] [place] [id number] Referral ID Status Reason Start Date Expiration Date V isits Requested Visits Authorized [id number] Closed PCP Requested Referral 05/26/2023 05/25/2024 1 1 Reason Onset Date Comments Refill Request 10/10/[address] Specialty Diagnoses / Procedures Referred By Contac t Referred To Contact CT IMAGING Diagnoses Tobacco use disorder Procedures CT ABD/PEL WO IVCON CT ABD & PELVIS W/O CONTRAST Tyra Martell, SEASONER HAND.SOLE TACKER [address] [place] [address] [place] [address] Referral ID Status Reason Start Date Expiration Date V isits Requested Visits Authorized [id number] Closed Auto-Generate d Referral 10/11/2023 05/21/2024 2 2 Specialty Diagnoses / Procedures Referred By Contac t Referred To Contact CT IMAGING Diagnoses Tobacco use disorder Procedures CT ABD/PEL WO IVCON CT ABD & PELVIS W/O CONTRAST Tyra Martell, SEASONER HAND.SOLE TACKER [address] [place] [address] [place] [address] Reason Onset Date Comments Refill Request 10/30/2023 Reason Comments Stress Test Instructions Reason Comments Results Reason Onset Date Comments Refill Request 11/10/2023 Reason Comments Results Stress Test Specialty Diagnoses / Procedures Referred By Contac t Referred To Contact MOLECULAR & FUNCTIONAL IMAGING Diagnoses SHAH (dyspnea on exertion) Encounter for screening for cardiovascular disorders Procedures NM CARDIAC PERF STRESS/PHARM MYOCARDIAL SPECT MULTIPLE STUDIES CV STRS TST XERS&/OR RX CONT ECG W/O I&R CV STRS TST XERS&/OR RX CONT ECG W/SI&R CV STRS TST XERS&/OR RX CONT ECG I&R ONLY Tyra Martell, SEASONER HAND.SOLE TACKER [address] [place] [address] Molecular & Functional Imaging [address] [place] [address] Referral ID Status Reason Start Date Expiration Date V isits Requested Visits Authorized [id number] Closed Auto-Generate d Referral 10/30/2023 05/21/2024 3 3 Reason Comments Radiology NM Specialty Diagnoses / Procedures Referred By Contac t Referred To Contact MOLECULAR & FUNCTIONAL IMAGING Diagnoses Lung nodules Procedures NM PET/CT SKULL-THIGH INITIAL PET IMAGING CT ATTENUATION SKULL BASE MID-THIGH Anitra Mcduffie, SEASONER HAND.LAMINATION 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 [address] [place] [address] Molecular & Functional Imaging [address] [place] [address] Referral ID Status Reason Start Date Expiration Date Visits Re quested Visits Authorized [id number] Closed 11/08/2023 05/21/2024 2 2 Reason Comments Penis/Scrotum Problem Reason Comments Penis/Scrotum Problem sores Reason Comments Established Patient Review PET Reason Comments Radiology Pre Procedure Instructions Reason Comments New Patient Specialty Diagnoses / Procedures [facility] To Contact Diagnoses Liver lesion Abnormal PET scan of liver Abnormal PET of right lung Lung nodule, multiple Hilar adenopathy Procedures CONSULT TO HEMATOLOGY/ONCOLOGY OFFICE/OUTPATIENT NEW HIGH MDM 60 MINUTES Anitra Mcduffie APRN.LAMINATION 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 [address] [place] [phone] Referral ID Status Reason Start Date Expiration Date V isits Requested Visits Authorized [id number] Closed PCP Requested Referral 12/18/2023 03/17/2024 1 1 Specialty Diagnoses / Procedures [facility] Ref[facility] To Contact MR IMAGING Diagnoses 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) Metastatic cancer to bone (HCC) 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) Procedures MRI BRAIN WO/W IVCON MRI BRAIN BRAIN STEM W/O W/CONTRAST MATERIAL Corazon Renteria, DO [address] [place] [address] Mr [facility] [place] [address] Referral ID Status Reason Start Date Expiration Date V isits Requested Visits Authorized [id number] Closed Auto-Generate d Referral 01/12/2024 05/21/2024 1 1 Reason Comments AVS 01/12/24, chemo start Reason Comments First Time Treatment Education Carbo/eto poside/tecentriq/neulasta Reason Comments cancelled apt/rescheduled Reason Comments Diarrhea Reason Comments Appointment Reason Comments Cough Reason Comments Urinary Frequency Reason Comments dental clearance Referral ID Status Reason Start Date Expiration Date V isits Requested Visits Authorized [id number] Authorized 01/16/2024 12/10/2024 12 Specialty Diagnoses / Procedures [facility] Referred To Contact Diagnoses 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) Metastatic cancer to bone (HCC) 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) Procedures Zoledronic Acid IV Orderable Corazon Renteria, DO [address] [place] [address] Ezequiel [facility] [address] [place] [address] Referral ID Status Reason Start Date Expiration Date Visits Requested Visits Authorized [id number] Authorized Patient Cleared INN/SMCP Payor Auth Obtained 01/29/2024 04/28/2024 1 1 Reason Comments Investigator Welfare - Other C1D1 Post Treat ment Call Reason Comments Investigator Welfare - Other Follow-up Reason Comments Established Patient Reason Comments Patient Update Reason Onset Date Comments Refill Request 02/22/2024 Reason Comments 6 Month Exam Physical Reason Comments requesting prescription for blood pressu re monitor Specialty Diagnoses / Procedures Referred By Contac t Referred To Contact CT IMAGING Diagnoses 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) Metastatic cancer to bone (HCC) 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) Procedures CT CHEST W IVCON DIAGNOSTIC COMPUTED TOMOGRAPHY THORAX W/CONTRAST Koffi Huerta APRN.LAMINATION 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 [address] [place] [address] Ct [id number] Referral ID Status Reason Start Date Expiration Date V isits Requested Visits Authorized [id number] Closed Auto-Generate d Referral 03/05/2024 03/05/2024 1 1 Specialty Diagnoses / Procedures [facility] Referred To Contact CT IMAGING Diagnoses 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) Metastatic cancer to bone (HCC) 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) Procedures CT CHEST W IVCON DIAGNOSTIC COMPUTED TOMOGRAPHY THORAX W/CONTRAST Koffi Huerta, MOIZ.LAMINATION 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 [address] [place] [address] [place] [id number] Reason Comments Appointment Patient Update Reason Comments 05/19/2023 COLON GOTTLIEB Specialty Diagnoses / Procedures [facility] Referred To Contact Diagnoses 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) Metastatic cancer to bone (HCC) 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) Procedures ETOPOSIDE 10 MG INJ CARBOPLATIN INJECTION PALONOSETRON HCL INJ, ATEZOLIZUMAB,10 MG FOSAPREPITANT INJECTION INJECTION, Corazon Alvarado DO [address] [place] [address] Ezequiel [facility] [address] [place] [address] Reason Onset Date Comments Refill Request 04/09/2024 Specialty Diagnoses / Procedures Referred By Contac t Referred To Contact CT IMAGING Diagnoses Malignant neoplasm of unspecified part of unspecified bronchus or lung (HCC) Procedures CT CHEST W IVCON DIAGNOSTIC COMPUTED TOMOGRAPHY THORAX W/CONTRAST FloresAngelic gregorio [address] [address] [place] [address] Referral ID Status Reason Start Date Expiration Date V isits Requested Visits Authorized [id number] Closed Auto-Generate d Referral 04/15/2024 04/15/2024 1 1 Specialty Diagnoses / Procedures Referred By Contac t Referred To Contact CT IMAGING Diagnoses Malignant neoplasm of unspecified part of unspecified bronchus or lung (HCC) Procedures CT CHEST W IVCON DIAGNOSTIC COMPUTED TOMOGRAPHY THORAX W/CONTRAST FloresAngelic gregorio [address] [facility] [address] [place] [id number] Reason Comments Established Patient Reason Onset Date Comments Refill Request 05/02/2024 Reason Comments Edema Reason Comments Follow Up Reason Onset Date Comments Refill Request 06/06/2024 Bupropion Specialty Diagnoses / Procedures Referred By Contac t Referred To Contact CT IMAGING Diagnoses 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) Metastatic cancer to bone (HCC) 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) Procedures CT ABD/PEL W IVCON CT ABD & PELVIS W/CONTRAST Corazon Renteria DO [address] [place] [address] Phone: tel: fax: [place] [address] Referral ID Status Reason Start Date Expiration Date V isits Requested Visits Authorized [id number] Closed Auto-Generate d Referral 06/24/2024 05/21/2025 2 2 Specialty Diagnoses / Procedures Referred By Contac t Referred To Contact Diagnoses 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) Metastatic cancer to bone (HCC) 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) Procedures ETOPOSIDE 10 MG INJ CARBOPLATIN INJECTION PALONOSETRON HCL INJ, ATEZOLIZUMAB,10 MG FOSAPREPITANT INJECTION INJECTION, Corazon Alvarado DO [address] [place] [address] Phone: tel: fax: Hematology/Oncology [address] [place] [address] Phone: tel: fax: Referral ID Status Reason Start Date Expiration Date Visits Requested Visits Authorized [id number] Authorized Patient Cleared INN/SMCP Payor Auth Obtained 01/16/2024 12/11/2024 24 24 Reason Comments New Patient Evaluation Specialty Diagnoses / Procedures Referred By Contac t Referred To Contact Diagnoses ROMIE (obstructive sleep apnea) Procedures CONSULT TO SLEEP MEDICINE - ADULT OFFICE/OUTPATIENT NEW HIGH MDM 60 MINUTES Tyra Martell, SEASONER HAND.LAMINATION 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 [address] [place] [address] Phone: tel: fax: Referral ID Status Reason Start Date Expiration Date V isits Requested Visits Authorized [id number] Closed PCP Requested Referral 05/31/2024 05/31/2025 1 1 Reason Onset Date Comments Refill Request 08/07/2024 Reason Comments Follow Up 4 month exam Diarrhea X 1 week Specialty Diagnoses / Procedures Referred By Contac t Referred To Contact CT IMAGING Diagnoses Malignant neoplasm of unspecified part of unspecified bronchus or lung (HCC) Procedures CT ABD/PEL W IVCON CT ABD & PELVIS W/CONTRAST Angelic Flores [address] [place] [address] Phone: tel: fax: [place] [address] Referral ID Status Reason Start Date Expiration Date V isits Requested Visits Authorized [id number] Closed Auto-Generate d Referral 10/09/2024 10/09/2025 1 1 Reason Comments Results Reason Comments Medication Request Reason Comments Patient Question Re: upcoming appt Orders Reason Onset Date Comments Refill Request 11/12/2024 Referral ID Status Reason Start Date Expiration Date Visits Requested Visits Authorized [id number] Authorized Patient Cleared INN/SMCP Payor Auth Obtained 01/16/2024 04/21/2025 29 29 Reason Comments Orders Patient Question Patient called about the [facility] sleep apnea test that needs scheduled. Reason Comments Patient Update Patient Question Care Teams (unrecognized sec tion and content) Knot Saw Operator Relationship Specialty Start Date End Date Casey Hernandez PA-C [address] [facility] [place] [place] [address] PCP - General Family Practice 12/15/16 Knot Saw Operator Relationship Specialty Start Date End Date Casey Hernandez PA-C [address] [place] [address] PCP - General Family Practice 12/15/16 Knot Saw Operator Relationship Specialty Start Date End Date Casey Hernandez PA-C [address] [place] [address] PCP - General Family Practice 12/15/16 Knot Saw Operator Relationship Specialty Start Date End Date Casey Hernandez PA-C [address] [facility] [place] [address] PCP - General Family Practice 12/15/16 Knot Saw Operator Relationship Specialty Start Date End Date Casey Hernandez PA-C [address] [facility] [place] [address] PCP - General Family Practice 12/15/16 Knot Saw Operator Relationship Specialty Start Date End Date Casey Hernandez PA-C [address] [facility] [place] [place] [address] PCP - General Family Practice 12/15/16 Knot Saw Operator Relationship Specialty Start Date End Date Casey Hernandez PA-C [address] [place] [address] PCP - General Family Practice 12/15/16 Knot Saw Operator Relationship Specialty Start Date End Date Casey Hernandez PA-C [address] [place] [address] PCP - General Family Practice 12/15/16 Knot Saw Operator Relationship Specialty Start Date End Date Casey Hernandez PA-C [address] [place] [address] PCP - General Family Medicine 12/15/16 Knot Saw Operator Relationship Specialty Start Date End Date Casey Hernandez PA-C [address] [place] [address] PCP - General Family Medicine 12/15/16 Knot Saw Operator Relationship Specialty Start Date End Date Casey Hernandez PA-C [address] [facility] [place] [address] PCP - General Family Medicine 12/15/16 Knot Saw Operator Relationship Specialty Start Date End Date Casey Hernandez PA-C [address] [facility] [place] [place] [address] PCP - General Family Medicine 12/15/16 Knot Saw Operator Relationship Specialty Start Date End Date Casey Hernandez PA-C [address] [facility] [place] [address] PCP - General Family Medicine 12/15/16 Knot Saw Operator Relationship Specialty Start Date End Date Casey Hernandez PA-C [address] [place] [address] PCP - General Family Medicine 12/15/16 Knot Saw Operator Relationship Specialty Start Date End Date Casey Hernandez PA-C [address] [facility] [place] [address] PCP - General Family Medicine 12/15/16 Knot Saw Operator Relationship Specialty Start Date End Date Casey Hernandez PA-C [address] [place] [address] PCP - General Family Medicine 12/15/16 Knot Saw Operator Relationship Specialty Start Date End Date Casey Hernandez PA-C [address] [place] [address] PCP - General Family Medicine 12/15/16 Knot Saw Operator Relationship Specialty Start Date End Date Casey Hernandez PA-C [address] [place] [address] PCP - General Family Medicine 12/15/16 Knot Saw Operator Relationship Specialty Start Date End Date Casey Hernandez PA-C [address] [place] [address] PCP - General Family Medicine 12/15/16 Knot Saw Operator Relationship Specialty Start Date End Date Casey Hernandez PA-C [address] [place] [address] PCP - General Family Medicine 12/15/16 Knot Saw Operator Relationship Specialty Start Date End Date Casey Hernandez PA-C [address] [place] [address] PCP - General Family Medicine 12/15/16 Knot Saw Operator Relationship Specialty Start Date End Date Casey Hernandez PA-C [address] [place] [address] PCP - General Family Medicine 12/15/16 Knot Saw Operator Relationship Specialty Start Date End Date Casey Hernandez PA-C [address] [place] [address] PCP - General Family Medicine 12/15/16 Knot Saw Operator Relationship Specialty Start Date End Date Casey Hernandez PA-C [address] [facility] [place] [place] [address] PCP - General Family Medicine 12/15/16 Knot Saw Operator Relationship Specialty Start Date End Date Casey Hernandez PA-C [address] [facility] [place] [address] PCP - General Family Medicine 12/15/16 Knot Saw Operator Relationship Specialty Start Date End Date Casey Hernandez PA-C [address] [facility] [place] [place] [address] PCP - General Family Medicine 12/15/16 Knot Saw Operator Relationship Specialty Start Date End Date Casey Hernandez PA-C [address] [facility] [place] [address] PCP - General Family Medicine 12/15/16 Knot Saw Operator Relationship Specialty Start Date End Date Casey Hernandez PA-C [address] [facility] [place] [address] PCP - General Family Medicine 12/15/16 Knot Saw Operator Relationship Specialty Start Date End Date Casey Hernandez PA-C [address] [facility] [place] [place] [address] PCP - General Family Medicine 12/15/16 Knot Saw Operator Relationship Specialty Start Date End Date Casey Hernandez PA-C [address] [facility] [place] [address] PCP - General Family Medicine 12/15/16 Knot Saw Operator Relationship Specialty Start Date End Date Casey Hernandez PA-C [address] [facility] [place] [address] PCP - General Family Medicine 12/15/16 Knot Saw Operator Relationship Specialty Start Date End Date Casey Hernandez PA-C [address] [facility] [place] [address] PCP - General Family Medicine 12/15/16 Knot Saw Operator Relationship Specialty Start Date End Date Casey eHrnandez PA-C [address] [place] [address] PCP - General Family Medicine 12/15/16 Knot Saw Operator Relationship Specialty Start Date End Date Casey Hernandez PA-C [address] [place] [address] PCP - General Family Medicine 12/15/16 Knot Saw Operator Relationship Specialty Start Date End Date Casey Hernandez PA-C [address] [place] [address] PCP - General Family Medicine 12/15/16 Knot Saw Operator Relationship Specialty Start Date End Date Casey Hernandez PA-C [address] [facility] [place] [address] PCP - General Family Medicine 12/15/16 Knot Saw Operator Relationship Specialty Start Date End Date Casey Hernandez PA-C [address] [facility] [place] [address] PCP - General Family Medicine 12/15/16 Knot Saw Operator Relationship Specialty Start Date End Date Casey Hernandez PA-C [address] [facility] [place] [address] PCP - General Family Medicine 12/15/16 Knot Saw Operator Relationship Specialty Start Date End Date Casey Hernandez PA-C [address] [facility] [place] [address] PCP - General Family Medicine 12/15/16 Knot Saw Operator Relationship Specialty Start Date End Date Casey Hernandez PA-C [address] [facility] [place] [place] [address] PCP - General Family Medicine 12/15/16 Knot Saw Operator Relationship Specialty Start Date End Date Casey Hernandez PA-C [address] [facility] [place] [place] [address] PCP - General Family Medicine 12/15/16 Knot Saw Operator Relationship Specialty Start Date End Date Casey Hernandez PA-C [address] [facility] [place] [place] [address] PCP - General Family Medicine 12/15/16 Knot Saw Operator Relationship Specialty Start Date End Date Casey Hernandez PA-C [address] [facility] [place] [place] [address] PCP - General Family Medicine 12/15/16 Knot Saw Operator Relationship Specialty Start Date End Date Casey Hernandez PA-C [address] [facility] [place] [place] [address] PCP - General Family Medicine 12/15/16 Knot Saw Operator Relationship Specialty Start Date End Date Casey Hernandez PA-C [address] [facility] [place] [place] [address] PCP - General Family Medicine 12/15/16 Knot Saw Operator Relationship Specialty Start Date End Date Tyra Martell APRN.LAMINATION 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 [address] [facility] [place] [address] PCP - General Family Medicine 12/12/23 Knot Saw Operator Relationship Specialty Start Date End Date Tyra Martell, SEASONER HAND.LAMINATION 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 [address] [place] [address] PCP - General Family Medicine 12/12/23 Knot Saw Operator Relationship Specialty Start Date End Date Tyra Martell, SEASONER HAND.LAMINATION 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 [address] [place] [address] PCP - General Family Medicine 12/12/23 Knot Saw Operator Relationship Specialty Start Date End Date Tyra Martell, SEASONER HAND.LAMINATION 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 [address] [place] [address] PCP - General Family Medicine 12/12/23 Knot Saw Operator Relationship Specialty Start Date End Date Tyra Martell, SEASONER HAND.LAMINATION 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 [address] [place] [address] PCP - General Family Medicine 12/12/23 Knot Saw Operator Relationship Specialty Start Date End Date Tyra Martell, SEASONER HAND.LAMINATION 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 [address] [place] [address] PCP - General Family Medicine 12/12/23 Marty Saravia DO [address] [place] [address] Cardiology 01/12/24 Knot Saw Operator Relationship Specialty Start Date End Date Tyra Martell, SEASONER HAND.LAMINATION 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 [address] [place] [address] PCP - General Family Medicine 12/12/23 Marty Saravia DO [address] [place] [address] Cardiology 01/12/24 Knot Saw Operator Relationship Specialty Start Date End Date Tyra Martell SEASONER HAND.LAMINATION 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 [address] [place] [address] PCP - General Family Medicine 12/12/23 Marty Saravia DO [address] [place], [place] [id number] Cardiology 01/12/24 Knot Saw Operator Relationship Specialty Start Date End Date Tyra Martell SEASONER HAND.LAMINATION 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 [address] [place] [address] PCP - General Family Medicine 12/12/23 Marty Saravia DO [address] [place], [place] [id number] Cardiology 01/12/24 Knot Saw Operator Relationship Specialty Start Date End Date Tyra Martell SEASONER HAND.LAMINATION 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 [address] [place] [address] PCP - General Family Medicine 12/12/23 Marty Saravia DO [address] [place], [place] [id number] Cardiology 01/12/24 Knot Saw Operator Relationship Specialty Start Date End Date Tyra Martell SEASONER HAND.LAMINATION 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 [address] [place] [address] PCP - General Family Medicine 12/12/23 Marty Saravia DO [address] [place] [address] Cardiology 01/12/24 Knot Saw Operator Relationship Specialty Start Date End Date Tyra Martell, SEASONER HAND.LAMINATION 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 [address] [facility] [place] [place] [address] PCP - General Family Medicine 12/12/23 Marty Saravia DO [address] [place] [address] Cardiology 01/12/24 Corazon Renteria DO [address] [facility] [place] [address] Hematology/Oncology 01/17/24 Kayli August RN Specialty Investigator Welfare Oncology 01/17/24 Knot Saw Operator Relationship Specialty Start Date End Date Tyra Martell, SEASONER HAND.LAMINATION 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 [address] [place] [address] PCP - General Family Medicine 12/12/23 Marty Saravia DO [address] [place] [address] Cardiology 01/12/24 Corazon Renteria DO [address] [facility] [place] [address] Hematology/Oncology 01/17/24 Kayli August RN Specialty Investigator Welfare Oncology 01/17/24 Knot Saw Operator Relationship Specialty Start Date End Date Tyra Martell, SEASONER HAND.LAMINATION 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 [address] [place] [address] PCP - General Family Medicine 12/12/23 Marty Saravia DO [address] [place] [address] Cardiology 01/12/24 Corazon Renteria DO [address] [place] [address] Hematology/Oncology 01/17/24 Kayli August RN Specialty Investigator Welfare Oncology 01/17/24 Knot Saw Operator Relationship Specialty Start Date End Date Tyra Martell, SEASONER HAND.LAMINATION 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 [address] [facility] [place] [place] [address] PCP - General Family Medicine 12/12/23 Marty Saravia DO [address] [place] [address] Cardiology 01/12/24 Corazon Renteria DO [address] [facility] [place] [address] Hematology/Oncology 01/17/24 Kayli August RN Specialty Investigator Welfare Oncology 01/17/24 Knot Saw Operator Relationship Specialty Start Date End Date Tyra Martell, SEASONER HAND.LAMINATION 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 [address] [facility] [place] [place] [address] PCP - General Family Medicine 12/12/23 Marty Saravia DO [address] [place] [address] Cardiology 01/12/24 Corazon Renteria DO [address] [facility] [place] [address] Hematology/Oncology 01/17/24 Kayli August RN Specialty Investigator Welfare Oncology 01/17/24 Knot Saw Operator Relationship Specialty Start Date End Date Tyra Martell, SEASONER HAND.LAMINATION 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 [address] [facility] [place] [place] [address] PCP - General Family Medicine 12/12/23 Marty Saravia DO [address] [place] [address] Cardiology 01/12/24 Corazon Renteria DO [address] [facility] [place] [address] Hematology/Oncology 01/17/24 Kayli August RN Specialty Investigator Welfare Oncology 01/17/24 Knot Saw Operator Relationship Specialty Start Date End Date Tyra Martell, SEASONER HAND.LAMINATION 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 [address] [place] [address] PCP - General Family Medicine 12/12/23 Marty Saravia DO [address] [place] [address] Cardiology 01/12/24 Corazon Renteria DO [address] [facility] [place] [address] Hematology/Oncology 01/17/24 Kayli August RN Specialty Investigator Welfare Oncology 01/17/24 Knot Saw Operator Relationship Specialty Start Date End Date Tyra Martell, SEASONER HAND.LAMINATION 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 [address] [place] [address] PCP - General Family Medicine 12/12/23 Marty Saravia DO [address] [place] [address] Cardiology 01/12/24 Corazon Renteria DO [address] [facility] [place] [address] Hematology/Oncology 01/17/24 Kayli August RN Specialty Investigator Welfare Oncology 01/17/24 Knot Saw Operator Relationship Specialty Start Date End Date Tyra Martell, SEASONER HAND.LAMINATION 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 [address] [facility] [place] [place] [address] PCP - General Family Medicine 12/12/23 Marty Saravia DO [address] [place] [address] Cardiology 01/12/24 Corazon Renteria DO [address] [place] [address] Hematology/Oncology 01/17/24 Kayli August RN Specialty Investigator Welfare Oncology 01/17/24 Knot Saw Operator Relationship Specialty Start Date End Date Tyra Martell, SEASONER HAND.LAMINATION 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 [address] [facility] [place] [address] PCP - General Family Medicine 12/12/23 Marty Saravia DO [address] [place] [address] Cardiology 01/12/24 Corazon Renteria DO [address] [place] [address] Hematology/Oncology 01/17/24 Kayli August RN Specialty Investigator Welfare Oncology 01/17/24 Knot Saw Operator Relationship Specialty Start Date End Date Tyra Martell, SEASONER HAND.LAMINATION 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 [address] [facility] [place] [place] [address] PCP - General Family Medicine 12/12/23 Marty Saravia DO [address] [place] [address] Cardiology 01/12/24 Corazon Renteria DO [address] [place] [address] Hematology/Oncology 01/17/24 Kayli August RN Specialty Investigator Welfare Oncology 01/17/24 Knot Saw Operator Relationship Specialty Start Date End Date Tyra Martell, SEASONER HAND.LAMINATION 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 [address] [place] [address] PCP - General Family Medicine 12/12/23 Marty Saravia DO [address] [place] [address] Cardiology 01/12/24 Corazon Renteria DO [address] [address] Hematology/Oncology 01/17/24 Kayli August RN Specialty Investigator Welfare Oncology 01/17/24 Knot Saw Operator Relationship Specialty Start Date End Date Tyra Martell, SEASONER HAND.LAMINATION 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 [address] [facility] [place] [place] [address] PCP - General Family Medicine 12/12/23 Marty Saravia DO [address] [place] [address] Cardiology 01/12/24 Corazon Renteria DO [address] [place] [address] Hematology/Oncology 01/17/24 Kayli August RN Specialty Investigator Welfare Oncology 01/17/24 Knot Saw Operator Relationship Specialty Start Date End Date Casey Hernandez PA-C [address] [place] [address] PCP - General Family Medicine 12/15/16 12/11/23 Knot Saw Operator Relationship Specialty Start Date End Date Tyra Martell, SEASONER HAND.LAMINATION 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 [address] [place] [address] PCP - General Family Medicine 12/12/23 Marty Saravia DO [address] [place], [place] [id number] Cardiology 01/12/24 Corazon Renteria DO [address] [place] [address] Hematology/Oncology 01/17/24 Kayli August RN Specialty Investigator Welfare Oncology 01/17/24 Knot Saw Operator Relationship Specialty Start Date End Date Tyra Martell, SEASONER HAND.LAMINATION 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 [address] [place] [address] PCP - General Family Medicine 12/12/23 Marty Saravia DO [address] [place] [address] Cardiology 01/12/24 Corazon Renteria DO [address] [place] [address] Hematology/Oncology 01/17/24 Kayli August RN Specialty Investigator Welfare Oncology 01/17/24 Knot Saw Operator Relationship Specialty Start Date End Date Tyra Martell, SEASONER HAND.LAMINATION 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 [address] [place] [address] PCP - General Family Medicine 12/12/23 Marty Saravia DO [address] [place] [id number] Cardiology 01/12/24 Corazon Renteria DO [address] [place] [address] Hematology/Oncology 01/17/24 Kayli August RN Specialty Investigator Welfare Oncology 01/17/24 Knot Saw Operator Relationship Specialty Start Date End Date Tyra Martell APRN.LAMINATION 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 [address] [place] [address] PCP - General Family Medicine 12/12/23 Marty Saravia DO [address] [place] [address] Cardiology 01/12/24 Corazon Renteria DO [address] [address] Hematology/Oncology 01/17/24 Kayli August RN Specialty Investigator Welfare Oncology 01/17/24 Knot Saw Operator Relationship Specialty Start Date End Date Casey Hernandez PA-C [address] [place] [address] PCP - General Family Medicine 12/15/16 12/11/23 Knot Saw Operator Relationship Specialty Start Date End Date Tyra Martell APRN.LAMINATION 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 [address] [place] [address] PCP - General Family Medicine 12/12/23 Marty Saravia DO [address] [place] [address] Cardiology 01/12/24 Corazon Renteria DO [address] [facility] [place] [address] Hematology/Oncology 01/17/24 Kayli August RN Specialty Investigator Welfare Oncology 01/17/24 Knot Saw Operator Relationship Specialty Start Date End Date Tyra Martell, SEASONER HAND.LAMINATION 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 [address] [place] [address] PCP - General Family Medicine 12/12/23 Marty Saravia DO [address] [place] [address] Cardiology 01/12/24 Corazon Renteria DO [address] [facility] [address] Hematology/Oncology 01/17/24 Kayli August RN Specialty Investigator Welfare Oncology 01/17/24 Knot Saw Operator Relationship Specialty Start Date End Date Tyra Martell, SEASONER HAND.LAMINATION MACHINE OPERATOR [address] [place] [address] PCP - General Family Medicine 12/12/23 Marty Saravia DO [address] [place] [address] Cardiology 01/12/24 Corazon Renteria DO [address] [facility] [address] Hematology/Oncology 01/17/24 Kayli August RN Specialty Investigator Welfare Oncology 01/17/24 Knot Saw Operator Relationship Specialty Start Date End Date Tyra Martell, SEASONER HAND.LAMINATION MACHINE OPERATOR [address] [place] [address] PCP - General Family Medicine 12/12/23 Marty Saravia DO [address] [place] [address] Cardiology 01/12/24 Corazon Renteria DO [address] [place] [address] Hematology/Oncology 01/17/24 Kayli August RN Specialty Investigator Welfare Oncology 01/17/24 Knot Saw Operator Relationship Specialty Start Date End Date Tyra Martell, SEASONER HAND.LAMINATION MACHINE OPERATOR [address] [place] [address] PCP - General Family Medicine 12/12/23 Marty Saravia DO [address] [place] [address] Cardiology 01/12/24 Corazon Renteria DO [address] [place] [address] Hematology/Oncology 01/17/24 Kayli August RN Specialty Investigator Welfare Oncology 01/17/24 Knot Saw Operator Relationship Specialty Start Date End Date Casey Hernandez PA-C [address] [place] [address] PCP - General Family Medicine 12/15/16 12/11/23 Tyra Martell, SEASONER HAND.LAMINATION MACHINE OPERATOR [address] [place] [address] PCP - General Family Medicine 12/12/23 Marty Saravia DO [address] [place] [address] Cardiology 01/12/24 Corazon Renteria DO [address] [place] [address] Hematology/Oncology 01/17/24 Kayli August RN Specialty Investigator Welfare Oncology 01/17/24 Knot Saw Operator Relationship Specialty Start Date End Date Tyra Martell, SEASONER HAND.LAMINATION MACHINE OPERATOR [address] [place] [address] PCP - General Family Medicine 12/12/23 Marty Saravia DO [address] [place] [address] Cardiology 01/12/24 Corazon Renteria DO [address] [address] Hematology/Oncology 01/17/24 Kayli August RN Specialty Investigator Welfare Oncology 01/17/24 Knot Saw Operator Relationship Specialty Start Date End Date Tyra Martell, SEASONER HAND.LAMINATION MACHINE OPERATOR [address] [place] [address] PCP - General Family Medicine 12/12/23 Marty Saravia DO [address] [place] [address] Cardiology 01/12/24 Corazon Renteria DO [address] [place] [address] Hematology/Oncology 01/17/24 Kayli August RN Specialty Investigator Welfare Oncology 01/17/24 Knot Saw Operator Relationship Specialty Start Date End Date Tyra Martell, SEASONER HAND.KIMBERLY [address] [facility] [place] [address] PCP - General Family Medicine 12/12/23 Marty Saravia DO [address] [place] [address] Cardiology 01/12/24 Corazon Renteria DO [address] [facility] [address] Hematology/Oncology 01/17/24 Kayli August RN Specialty Investigator Welfare Oncology 01/17/24 Knot Saw Operator Relationship Specialty Start Date End Date Tyra Martell, SEASONER HAND.LAMINATION MACHINE OPERATOR [address] [place] [address] PCP - General Family Medicine 12/12/23 Marty Saravia DO [address] [place] [address] Cardiology 01/12/24 Corazon Renteria DO [address] [facility] [address] Hematology/Oncology 01/17/24 Kayli August RN Specialty Investigator Welfare Oncology 01/17/24 Knot Saw Operator Relationship Specialty Start Date End Date Tyra Martell, SEASONER HAND.LAMINATION MACHINE OPERATOR [address] [place] [address] PCP - General Family Medicine 12/12/23 Marty Saravia DO [address] [place] [address] Cardiology 01/12/24 Corazon Renteria DO [address] [place] [address] Hematology/Oncology 01/17/24 Kayli August RN Specialty Investigator Welfare Oncology 01/17/24 Knot Saw Operator Relationship Specialty Start Date End Date Marty Saravia DO [address] [place] [address] Cardiology 01/12/24 Corazon Renteria DO [address] [address] Hematology/Oncology 01/17/24 Kayli August RN Specialty Investigator Welfare Oncology 01/17/24 Knot Saw Operator Relationship Specialty Start Date End Date Tyra Martell, SEASONER HAND.LAMINATION MACHINE OPERATOR [address] [place] [address] PCP - General Family Medicine 12/12/23 Marty Saravia DO [address] [place] [address] Cardiology 01/12/24 Corazon Renteria DO [address] [address] Hematology/Oncology 01/17/24 Kayli August RN Specialty Investigator Welfare Oncology 01/17/24 Knot Saw Operator Relationship Specialty Start Date End Date Tyra Martell, SEASONER HAND.LAMINATION MACHINE OPERATOR [address] [place] [address] PCP - General Family Medicine 12/12/23 Marty Saravia DO [address] [place] [address] Cardiology 01/12/24 Corazon Renteria DO [address] [place] [address] Hematology/Oncology 01/17/24 Kayli Auguts RN Specialty Investigator Welfare Oncology 01/17/24 Knot Saw Operator Relationship Specialty Start Date End Date Tyra Martell, SEASONER HAND.LAMINATION MACHINE OPERATOR [address] [place] [address] PCP - General Family Medicine 12/12/23 Marty Saravia DO [address] [place] [address] Cardiology 01/12/24 Corazon Renteria DO [address] [place] [address] Hematology/Oncology 01/17/24 Kayli August RN Specialty Investigator Welfare Oncology 01/17/24 Knot Saw Operator Relationship Specialty Start Date End Date Tyra Martell, SEASONER HAND.LAMINATION MACHINE OPERATOR [address] [place] [address] PCP - General Family Medicine 12/12/23 Marty Saravia DO [address] [place] [address] Cardiology 01/12/24 Corazon Renteria DO [address] [place] [address] Hematology/Oncology 01/17/24 Kayli August RN Specialty Investigator Welfare Oncology 01/17/24 Knot Saw Operator Relationship Specialty Start Date End Date Tyra Martell, SEASONER HAND.KIMBERLY [address] [place] [address] PCP - General Family Medicine 12/12/23 Marty Saravia DO [address] [place] [address] Cardiology 01/12/24 Corazon Renteria DO [address] [place] [address] Hematology/Oncology 01/17/24 Kayli August RN Specialty Investigator Welfare Oncology 01/17/24 Knot Saw Operator Relationship Specialty Start Date End Date Tyra Martell, SEASONER HAND.KIMBERLY [address] [place] [address] PCP - General Family Medicine 12/12/23 Marty Saravia DO [address] [place] [address] Cardiology 01/12/24 Corazon Renteria DO [address] [facility] [address] Hematology/Oncology 01/17/24 Kayli August RN Specialty Investigator Welfare Oncology 01/17/24 Knot Saw Operator Relationship Specialty Start Date End Date Tyra Martell, SEASONER HAND.LAMINATION MACHINE OPERATOR [address] [place] [address] PCP - General Family Medicine 12/12/23 Marty Saravia DO [address] [place] [address] Cardiology 01/12/24 Corazon Renteria DO [address] [place], [place] [address] Hematology/Oncology 01/17/24 Kayli August RN Specialty Investigator Welfare Oncology 01/17/24 Knot Saw Operator Relationship Specialty Start Date End Date Tyra Martell, SEASONER HAND.LAMINATION MACHINE OPERATOR [address] [facility], [place] [address] PCP - General Family Medicine 12/12/23 Marty Saravia DO [address] [place] [address] Cardiology 01/12/24 Corazon Renteria DO [address] [place], [place] [address] Hematology/Oncology 01/17/24 Kayli August RN Specialty Investigator Welfare Oncology 01/17/24 Team Status: Active Member Role Status Dates CHARLY Monson Primary Care Provider Active Team Status: Inactive Member Role Status Dates Dr. Jay Beckett DO Emergency Provider Active Start: April 30, 2024 End: May 02, 2024 CHARLY Monson Primary Care Provider Active Start: April 30, 2024 End: May 02, 2024 Dr. Judson Hairston MD Admit Provider Active Start: April 30, 2024 End: May 02, 2024 Dr. Judson Hairston MD Attending Provider Active Start: April 30, 2024 End: May 02, 2024 Team Status: Active Member Role Status Dates CHARLY Monson Primary Care Provider Active Start: April 30, 2024 Dr. Christiano Jain MD Attending Provider Active S tart: April 30, 2024 Team Status: Active Member Role Status Dates Dr. Jay Beckett DO Emergency Provider Active Start: April 30, 2024 Tyra Suppan , SOLE TACKER Primary Care Provider Active Start: April 30, 2024 Dr. Judson Hairston MD Admit Provider Active Start: April 30, 2024 Dr. Judson Hairston MD Attending Provider Active Start: April 30, 2024 Dr. Judson Hairston MD Other Provider Active Start: April 30, 2024 Team Status: Active Member Role Status Dates Dr. Jay Beckett DO Emergency Provider Active Start: May 01, 2024 CHARLY Monson Primary Care Provider Active Start: May 01, 2024 Dr. Judson Hairston MD Admit Provider Active Start: May 01, 2024 Dr. Judson Hairstno MD Attending Provider Active Start: May 01, 2024 Dr. Judson Hairston MD Other Provider Active Start: May 01, 2024 Team Status: Active Member Role Status Dates Dr. Jay Beckett DO Emergency Provider Active Start: May 02, 2024 Tyra Martell SOLE TACKER Primary Care Provider Active Start: May 02, 2024 Dr. Judson Hairston MD Admit Provider Active Start: May 02, 2024 Dr. Judson Hairston MD Attending Provider Active Start: May 02, 2024 Dr. Judson Hairston MD Other Provider Active Start: May 02, 2024 Team Status: Inactive Member Role Status Dates Tyra Martell , SOLE TACKER Primary Care Provider Active Start: August 02, 2024 End: August 02, 2024 Clemencia Barr SPRING TIER, SPRING TIER-C Attending Provider Active Start: August 02, 2024 End: August 02, 2024 Clemencia Barr Referring Provider Active Start: August 02, 2024 End: August 02, 2024 Knot Saw Operator Relationship Specialty Start Date End Date Tyra Martell, SEASONER HAND.LAMINATION MACHINE OPERATOR [address] [place] [address] PCP - General Family Medicine 12/12/23 Marty Saravia DO [address] [place] [address] Cardiology 01/12/24 Corazon Renteria DO [address] [facility] [address] Hematology/Oncology 01/17/24 Kayli August RN Specialty Investigator Welfare Oncology 01/17/24 Knot Saw Operator Relationship Specialty Start Date End Date Tyra Martell, SEASONER HAND.LAMINATION MACHINE OPERATOR [address] [place] [address] PCP - General Family Medicine 12/12/23 Marty Saravia DO [address] [place] [address] Cardiology 01/12/24 Corazon Renteria DO [address] [place] [address] Hematology/Oncology 01/17/24 Kayli August RN Specialty Investigator Welfare Oncology 01/17/24 Knot Saw Operator Relationship Specialty Start Date End Date Tyra Martell SEASONER HAND.LAMINATION MACHINE OPERATOR [address] [place] [address] PCP - General Family Medicine 12/12/23 Marty Saravia DO [address] [place] [address] Cardiology 01/12/24 Corazon Renteria DO [address] [place] [address] Hematology/Oncology 01/17/24 Kayli August RN Specialty Investigator Welfare Oncology 01/17/24 Knot Saw Operator Relationship Specialty Start Date End Date Tyra Martell, SEASONER HAND.LAMINATION MACHINE OPERATOR [address] [facility] [place] [address] PCP - General Family Medicine 12/12/23 Marty Saravia DO [address] [place] [address] Cardiology 01/12/24 Corazon Renteria DO [address] [place] [address] Hematology/Oncology 01/17/24 Kayli August RN Specialty Investigator Welfare Oncology 01/17/24 Knot Saw Operator Relationship Specialty Start Date End Date Tyra Martell, SEASONER HAND.LAMINATION MACHINE OPERATOR [address] [place] [address] PCP - General Family Medicine 12/12/23 Marty Saravia DO [address] [place] [address] Cardiology 01/12/24 Corazon Renteria DO [address] [place] [address] Hematology/Oncology 01/17/24 Kayli August RN Specialty Investigator Welfare Oncology 01/17/24 Knot Saw Operator Relationship Specialty Start Date End Date Tyra Martell, SEASONER HAND.LAMINATION MACHINE OPERATOR [address] [place] [address] PCP - General Family Medicine 12/12/23 Marty Saravia DO [address] [place] [address] Cardiology 01/12/24 Corazon Renteria DO [address] [place] [address] Hematology/Oncology 01/17/24 Kayli August RN Specialty Investigator Welfare Oncology 01/17/24 Knot Saw Operator Relationship Specialty Start Date End Date Tyra Martell, SEASONER HAND.LAMINATION MACHINE OPERATOR [address] [facility] [place] [address] PCP - General Family Medicine 12/12/23 Marty Saravia DO [address] [place] [address] Cardiology 01/12/24 Corazon Renteria DO [address] [place] [address] Hematology/Oncology 01/17/24 Kayli August RN Specialty Investigator Welfare Oncology 01/17/24 Knot Saw Operator Relationship Specialty Start Date End Date Tyra Martell, SEASONER HAND.LAMINATION MACHINE OPERATOR [address] [facility] [place] [address] PCP - General Family Medicine 12/12/23 Marty Saravia DO [address] [place] [address] Cardiology 01/12/24 Corazon Renteria DO [address] [facility] [place] [address] Hematology/Oncology 01/17/24 Kayli August RN Specialty Investigator Welfare Oncology 01/17/24 Knot Saw Operator Relationship Specialty Start Date End Date Tyra Martell, SEASONER HAND.LAMINATION MACHINE OPERATOR [address] [facility] [place] [address] PCP - General Family Medicine 12/12/23 Marty Saravia DO [address] [place] [address] Cardiology 01/12/24 Corazon Renteria DO [address] [place] [address] Hematology/Oncology 01/17/24 Kayli August RN Specialty Investigator Welfare Oncology 01/17/24 (unrecognized sect ion and content) No Status Records FoundNo Status Records FoundNo Status Records FoundNo Status Records Found INFORMATION SOURCE (unrecogn ized section and content) DATE CREATED AUTHOR 05/27/2023 [facility] nt DATE CREATED AUTHOR AUTHOR'S ORGANIZ ATION 12/16/2024 [facility] DATE CREATED AUTHOR AUTHOR'S ORGANIZ ATION 12/28/2024 [facility] DATE CREATED AUTHOR AUTHOR'S ORGANIZ ATION 01/03/2025 [facility] FOR RECORDS PERTAINING TO PATIENTS WHO ARE OR HAVE BEEN ENROLLED IN A CHEMICAL DEPENDENCY/SUBSTANCEABUSE PROGRAM, SOME INFORMATION MAY BE OMITTED. This clinical summary was aggregated from multiple sources. Caution should be exercised in using it in the provision of clinical care. This summary normalizes information from multiple sources, and as a consequence, information in this document may materially change the coding, format and clinical context of patient data. In addition, data may be omitted in some cases. CLINICAL DECISIONS SHOULD BE BASED ON THE PRIMARY CLINICAL RECORDS. [employer] provides no warranty or guarantee of the accuracy or completeness of information in this document.
== END | disposition home or self-care (01) ==
LOC: SL 20:19
PROVIDERS: PCP Clinical Nurse Specialist Adult Health; Referring Provider Nurse Practitioner Adult Health; Visit Provider Nurse Practitioner Adult Health
DX: G47.33 Obstructive sleep apnea (adult) (pediatric) (principal); Z99.89 Dependence on other enabling machines and devices
CPT/HCPCS: 95811